=== PATIENT | male | born 1975 ===

== ENCOUNTER 2023-12-26 11:31 | Outpatient (CLI) | payer MEDICAID, SELFPAY ==
--- OUTSIDE RECORDS SUMMARY | 2023-12-26 11:38 | XMS_ITS | Clinical Summary ---
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 Name Role Phone Unavailable Primary Care Provider Unavailabl e Encounters Date Type Department Care Team Description 12/12/2023 Lab Requisition [facility] Pathology & Laboratory [facility] [address] [place] [address] Outr Resulting Lab, Provider 11/28/2023 Lab Requisition [facility] Pathology & Laboratory [address] [address] Outr Resulting Lab, Provider from Last 3 Months Social History Tobacco Use Types Packs/Day Years Used Date Smoking Tobacco: Never Assessed Sex and Gender Information Value Date Recorded Sex Assigned at Not on file Gender Identity Not on file Sexual Orientation Not on file Plan of Treatment Health Maintenance Due Date Last Done Comments Hepatitis C Screen 1975 Hepatitis B Vaccine (1 of 3 - 19+ 3-dose series) 01/05 COVID-19 Vaccine ( season) 2023 Procedures Procedure Name Priority Date/Time Associated Diagnosis Comments T3 FREE Routine 12/12/2023 12:47 EDT T3, TOTAL Routine 12/12/2023 12:47 EDT ANTI THYROGLOBULIN Routine 12/12/2023 12 :47 EDT HOLD SST Today 11/28/2023 11:11 EDT TESTOSTERONE Today 11/28/2023 11:11 EDT PROLACTIN Today 11/28/2023 11:11 EDT LH Today 11/28/2023 11:11 EDT FSH Today 11/28/2023 11:11 EDT from Last 3 Months Results * ANTI THYROGLOBULIN (12/12/2023 12:47 EDT) Anti-Thyroglob ulin <15 <=60 U/mL 12/13/2023 9:22 EDT [facility] Blood VENOUS BLOOD / Unknown 12/12/2023 12:47 EDT 12/12/2023 22:19 EDT Provider Outr Resulting Lab CHEMISTRY & BLOOD GAS ORDERABLES Performing Organization Address City/[facility]/ZIP Co de Phone Number [facility] [address] [place] [address] * T3 FREE (12/12/2023 12:47 EDT) Pathologist [facility] T3, Free 5.2 2.8 - 5.3 pg/mL 12/12/2023 22:52 EDT [facility] Blood VENOUS BLOOD / Unknown 12/12/2023 12:47 EDT 12/12/2023 22:19 EDT Provider Outr Resulting Lab CHEMISTRY & BLOOD GAS ORDERABLES Performing Organization Address City/[facility]/ZIP Co de Phone Number [facility] [address] [place] [phone] * (ABNORMAL) T3, TOTAL (12/12/2023 12:47 EDT) T3, Total 175(H) 97 - 169 ng/dL 12/12/2023 23:06 EDT [facility] Blood VENOUS BLOOD / Unknown 12/12/2023 12:47 EDT 12/12/2023 22:19 EDT Provider Outr Resulting Lab CHEMISTRY & BLOOD GAS ORDERABLES Performing Organization Address City/[facility]/ZIP Co de Phone Number [facility] [address] [place] [address] 40 * HOLD SST (11/28/2023 11:11 EDT) Hold Hold 11/28/2023 23:01 EDT [facility] Blood VENOUS BLOOD / Unknown 11/28/2023 11:11 EDT 11/28/2023 21:55 EDT Provider Outr Resulting Lab LAB INFO SER VICE AND SUPPORT & PHONE RESULT [facility] [address] [place] [address] * PROLACTIN (11/28/2023 11:11 EDT) Pathologist [facility] Prolactin 9.6 2.1 - 17.7 ng/mL 11/28/2023 22:54 EDT [facility] Blood VENOUS BLOOD / Unknown 11/28/2023 11:11 EDT 11/28/2023 21:55 EDT Provider Outr Resulting Lab CHEMISTRY & BLOOD GAS ORDERABLES Performing Organization Address [facility]/ZIP Co de Phone Number [facility] [address] [place] [phone] * TESTOSTERONE (11/28/2023 11:11 EDT) Pathologist [facility] Testosterone 601 229 - 902 ng/dL 11/28/2023 22:54 EDT [facility] Blood VENOUS BLOOD / Unknown 11/28/2023 11:11 EDT 11/28/2023 21:55 EDT Narrative [facility] - 11/28/2023 22:54 EDT The results of this assay can be falsely elevated due to the consumption of Biotin. Provider Outr Resulting Lab CHEMISTRY & BLOOD GAS ORDERABLES Performing Organization Address [facility]/ZIP Co de Phone Number [facility] [address] [place] [address] * (ABNORMAL) LH (11/28/2023 11:11 EDT) Luteinizing Hormone 12.6(H) 1.5 - 9.3 mIU/mL 11/28/2023 22:55 EDT [facility] Blood VENOUS BLOOD / Unknown 11/28/2023 11:11 EDT 11/28/2023 21:55 EDT Provider Outr Resulting Lab CHEMISTRY & BLOOD GAS ORDERABLES [facility] [address] [place] [address] * (ABNORMAL) FSH (11/28/2023 11:11 EDT) FSH 31.2(H) 1.4 - 18.1 mIU/mL 11/28/2023 22:54 EDT [facility] Blood VENOUS BLOOD / Unknown 11/28/2023 11:11 EDT 11/28/2023 21:55 EDT Provider Outr Resulting Lab CHEMISTRY & BLOOD GAS ORDERABLES [facility] [address] [place] [address] from Last 3 Months
--- OUTSIDE RECORDS SUMMARY | 2023-12-26 11:38 | XMS_ITS | Continuity of Care Document ---
Author Organization [facility] Address [address] [place] [address] Encounter [facility] Date(s): 01/30/23 - 01/30/23 [facility] [address] [place] [address] Encounter Diagnosis End stage liver disease(Discharge Diagnosis) - 01/30/23 Abdominal ascites(Discharge Diagnosis) - 01/30/23 Discharge Disposition: Home or Self Care Attending Physician: Irwin Martin MD Admitting Physician: Irwin Martin MD Allergies, Adverse Reactions, Alerts No Known Allergies Assessment and Plan Extracted from: Title:Clinical Document Author:Aishwarya Andrade te:01/30/23 Diagnosis: 1. Abdominal pain Comment: Diagnosis: 2. Abdominal ascites Comment: Diagnosis: End stage liver disease Comment: Diagnostic Tests Pending * Total Protein, Fluid [facility] 01/30/23 * Glucose, Fluid [facility] 01/30/23 * LDH, Fluid [facility] 01/30/23 Functional Status 01/30/23 Family Member Travel History No recent t ravel Recent Travel History No recent travel Other exposure to Infectious Disease Non e Medications folic acid 0 Refill(s) Start Date: 01/30/23 Status: Ordered furosemide 0 Refill(s) Start Date: 01/30/23 Status: Ordered lactulose 0 Refill(s) Start Date: 01/30/23 Status: Ordered potassium chloride 0 Refill(s) Start Date: 01/30/23 Status: Ordered Protonix 0 Refill(s) Start Date: 01/30/23 Status: Ordered spironolactone 0 Refill(s) Start Date: 01/30/23 Status: Ordered Problem List Condition Confirmation Course Effective Dates Status Health [facility] Informant Abdominal ascites Confirmed Active End stage liver disease Confirmed Active Results Laboratory List Name Date Cell Count w/ Diff Body Fluid 01/30/23 Ammonia Level 01/30/23 CBC w/ Diff 01/30/23 Comprehensive Metabolic Panel (CMP) 01/06 08/27 PT/ INR 01/30/23 PTT 01/30/23 .Manual Differential (NCTY) 01/30/23 Most recent to oldest [Reference Range]: 1 WBC [5.0-10.0 x10^3/mcL] 6.2 x10^3/mcL (01/30/23 12:53 PM) RBC [4.6-6.0 x10^6/mcL] 3.3 x10^6/mcL *LOW* (01/30/23 12:53 PM) Segs Man [40-75 %] 58 % (01/30/23 12:53 PM) Lymph Man [20-50 %] 20 % (01/30/23 12:53 PM) Dade Man [2-15 %] 20 % *HI* (01/30/23 12:53 PM) Eos Man [1-6 %] 2 % (01/30/23 12:53 PM) Prothrombin Time [9.0-11.0 seconds] 13.8 seconds *HI* (01/30/23 12:53 PM) INR 1.4 1 *NA* (01/30/23 12:53 PM) BUN [7-18 mg/dL] 9 mg/dL (01/30/23 12:53 PM) Glucose Level [74-106 mg/dL] 142 mg/dL *HI* (01/30/23 12:53 PM) Clarity BF [Clear] Clear (01/30/23 4:51 PM) Acanthocyte Small (01/30/23 12:53 PM) Potassium Level [3.5-5.1 mmol/L] 3.4 mmo l/L *LOW* (01/30/23 12:53 PM) MCV [80.0-96.0 fL] 90.3 fL (01/30/23 12:53 PM) RBC Morph Abnormal (01/30/23 12:53 PM) AST [15-37 unit/L] 42 unit/L *HI* (01/30/23 12:53 PM) ALT [16-63 unit/L] 19 unit/L (01/30/23 12:53 PM) MCHC [31.0-35.0 g/dL] 34.8 g/dL (01/30/23 12:53 PM) Sodium Level [136-145 mmol/L] 126 mmol/L *LOW* (01/30/23 12:53 PM) Hct [41.0-51.0 %] 29.9 % *LOW* (01/30/23 12:53 PM) Basophil BF 0 % *NA* (01/30/23 4:51 PM) Partial Thromboplastin Time [22-35 secon ds] 29 seconds 2 (01/30/23 12:53 PM) Calcium Level [8.5-10.1 mg/dL] 8.4 mg/dL *LOW* (01/30/23:53 PM) Albumin Level [3.4-5.0 g/dL] 2.6 g/dL *LOW* (01/30/23 12:53 PM) Protein Total [6.4-8.2 g/dL] 6.0 g/dL *LOW* (01/30/23:53 PM) Poik Small (01/30/23 12:53 PM) Monocyte BF 0 % *NA* (01/30/23 4:51 PM) MCH [26.0-32.0 pg] 31.4 pg (01/30/23 12:53 PM) Bilirubin Total [0.2-1.0 mg/dL] 3.8 mg/d L *HI* (01/30/23 12:53 PM) Hgb [14.0-18.0 g/dL] 10.4 g/dL *LOW* (01/30/23 12:53 PM) RBC BF <0.01 x10^6/mcL *NA* (01/30/23 4:51 PM) Alk Phos [46-146 unit/L] 127 unit/L (01/30/23 12:53 PM) Band Man [0-5 %] 0 % (01/30/23 12:53 PM) Eos BF 0 % *NA* (01/30/23 4:51 PM) Platelets [130-450 x10^3/mcL] 155 x10^3/ mcL (01/30/23 12:53 PM) Color BF Yellow (01/30/23 4:51 PM) Cell Cnt BF Type Peritoneal Fl 3 (01/30/23 4:51 PM) CO2 [21-32 mmol/L] 26 mmol/L (01/30/23 12:53 PM) WBC BF 0.072 x10^3/mcL *NA* (01/30/23 4:51 PM) Segs BF 2 % *NA* (01/30/23 4:51 PM) Ammonia Level [11-32 umol/L] <10 umol/L 4 *LOW* (01/30/23 12:53 PM) Lymph BF 0 % 5 *NA* (01/30/23 4:51 PM) eGFR Non-AA [>=60] 106 (01/30/23 12:53 PM) eGFR AA [>=60] 106 (01/30/23 12:53 PM) Chloride Level [98-107 mmol/L] 93 mmol/L *LOW* (01/30/23 12:53 PM) RDW-CV [11.5-14.5 %] 15.8 % *HI* (01/30/23 12:53 PM) [place] Cells Rare (01/30/23 12:53 PM) Slide Review Man Diff (01/30/23 12:53 PM) Abs Neut Man 3.6 x10^3/mcL *NA* (01/30/23 12:53 PM) Anisocyte Rare (01/30/23 12:53 PM) Creatinine Level [0.70-1.30 mg/dL] 0.86 mg/dL (01/30/23 12:53 PM) Baso Man [0-1 %] 0 % (01/30/23 12:53 PM) 1Interpretive Data: INR 2-2.5 Prophylaxis: Short term DVT INR 2-3 Prophylaxis: hip and femur surgery Therapy: DVT (3 mos) PE (3-6 mos) TIA (fpc) Atr Fib (terminal press operator) Syst. emb post DC Mitral Stenosis with emboli (terminal press operator) Tissue prosthetic valves (3 mos min) INR 3-4.5 Therapy: recurrent DVT, PE (terminal press operator) Prosthetic heart valves (terminal press operator) 2Interpretive Data: NEW reagent effective 12/08/2021- Therapeutic Heparin Reference Range (0.3-0.7 effective anti-Xa level) 40-70 seconds Range (0.3-0.7 effective anti-Xa level) 40-70 seconds NEW reagent effective 12/08/2021- Therapeutic Heparin Reference Range (0.3-0.7 effective anti-Xa level) 40-70 seconds. 3Interpretive Data: Reference ranges are unavailable. Results should be interpreted in the context of the clinical setting. 4Result Comment: correction to < . 5Result Comment: count pending Orders for Microbiology Reports Name Date Body Fluid Culture 01/30/23 Microbiology Reports TEST:Body Fluid Culture STATUS:Order in Progress BODY SITE: SOURCE:Body Fluid COLLECTED DATE/TIME:01/30/23 4:51 PM STAIN REPORT No organisms seen. Vital Signs Most recent to oldest [Reference Range]: 1 2 3 Temperature Temporal Artery [36-38 Deg C] 36.5 Deg C (01/30/23 12:03 PM) Peripheral Pulse Rate [60-100 bpm] 106 bpm *HI* (01/30/23 4:19 PM) 124 bpm *HI* (01/30/23 12:03 PM) Respiratory Rate [12-24 br/min] 18 br/min (01/30/23 4:19 PM) 20 br/min (01/30/23 12:03 PM) Blood Pressure [90-140/60-90 mmHg] 121/73mmHg (01/30/23 4:27 PM) 105/71mmHg (01/30/23 4:23 PM) 108/62mmHg (01/30/23 12:03 PM) Mean Arterial Pressure, Cuff [70-110 mmHg] 77 mmHg (01/30/23 12:03 PM) Weight Dosing 75.00 kg (01/30/23 12:09 PM) Weight Estimated 75.00 kg (01/30/23 12:03 PM) Height 180.000 cm (01/30/23 12:09 PM) Height/Length Estimated 180.000 cm (01/30/23 12:03 PM) Social History Social History Type Response Tobacco Current everyday tob acco user Tobacco Use:. 1.5 PPD per day. Sex Male Physician Emergency department Note * Irwin Martin MD: PERFORM Event Display: ED Note Physician Authored Date: [id number] MONISHA RODRIGUEZ :1975 Age:48 years Sex:Male Visit Date:01/30/2023 Basic Information Time Seen: Irwin Martin MD / 01/30/2023 12:24 Chief Complaint I have liver issues, I am being [place] [facility] and they told me to come into the ER to have my stomach tapped. PT states last time was 2-3 weeks ago. I have another one scheduled next month rightnow. PT states 1.5 liters removed History Of Present Illness: Patient presents for paracentesis. Review of Systems: Negative's for major body systems except for abdominal distention??from ascites. Physical Exam Vitals & Measurements T:??36.5?C ??(Temporal Artery)?? HR:??106??(Peripheral)?? RR:??18?? BP:??121/73?? SpO2:??95%?? HT:??180.000??cm?? WT:??75.00??kg??(Estimated)?? O2 Therapy:??Room air?? No distress. ??Heart tacky. ??Respirations normal. ??Chest auscultation normal. ??Abdomen tense ascites. ??Extremity??moderate edema. ??General??appearance??icteric. Medical Decision Making: Problem complexity is moderate. ??Data??complexity is??low. ??Management risk are moderate. ??[facility] coding [address]65 Procedure Paracentesis performed by Dr. Fuentes. No Qualifying Data Assessment/Plan 2.??Abdominal ascites??R18.8 Ordered: Nursing Care, 01/30/23 17:23:00 EST, Stop date 01/30/23 17:23:00 EST, Please apply dressing to abdominal procedure site, Abdominal ascites Nursing Care, 01/30/23 17:23:00 EST, Stop date 01/30/23 17:23:00 EST, Abdominal ascites ?? End stage liver disease??K72.10 ?? Medication Reconciliation Unchanged folic acid ?? furosemide ?? lactulose ?? pantoprazole (Protonix) ?? potassium chloride ?? spironolactone Problem List/Past Medical History Ongoing Abdominal ascites End stage liver disease Historical No qualifying data Allergies No Known Allergies Social History Alcohol Past, Liquor, Daily Electronic Cigarette/Vaping Electronic Cigarette Use: Never. Home/Environment Lives with Alone. Substance Use Current, Marijuana Tobacco Current everyday tobacco user Tobacco Use:. 1.5 PPD per day. Lab Results CBC and Differential?? LATEST RESULTS?? HISTORICAL RESULTS?? WBC?? 01/30/23 12:53?? 6.2?? 11/24/22?? 19.5 ??High?? RBC?? 01/30/23 12:53?? 3.3 ??Low?? 11/24/22?? 2.5 ??Low?? Hgb?? 01/30/23 12:53?? 10.4 ??Low?? 11/24/22?? 9.1 ??Low?? Hct?? 01/30/23 12:53?? 29.9 ??Low?? 11/24/22?? 24.8 ??Low?? MCV?? 01/30/23 12:53?? 90.3?? 11/24/22?? 99.2 ??High?? MCH?? 01/30/23 12:53?? 31.4?? 11/24/22?? 36.4 ??High?? MCHC?? 01/30/23 12:53?? 34.8?? 11/24/22?? 36.7 ??High?? RDW-CV?? 01/30/23 12:53?? 15.8 ??High?? 11/24/22?? 15.0 ??High?? Platelets?? 01/30/23 12:53?? 155?? 11/24/22?? 211?? Segs Man?? 01/30/23 12:53?? 58?? 11/24/22?? 74?? Lymph Man?? 01/30/23 12:53?? 20?? 11/24/22?? 12 ??Low?? Dade Man?? 01/30/23 12:53?? 20 ??High?? 11/24/22?? 14?? Eos Man?? 01/30/23 12:53?? 2?? 11/24/22?? 0 ??Low?? Baso Man?? 01/30/23 12:53?? 0?? 11/24/22?? 0?? Band Man?? 01/30/23 12:53?? 0?? 11/24/22?? 0?? Abs Neut Man?? 01/30/23 12:53?? 3.6? RBC Morph?? 01/30/23 12:53?? Abnormal?? 11/24/22?? Normal?? Acanthocyte?? 01/30/23 12:53?? Small? Anisocyte?? 01/30/23 12:53?? Rare? Clara Cells?? 01/30/23 12:53?? Rare? Poik?? 01/30/23 12:53?? Small? Slide Review?? 01/30/23 12:53?? Man Diff?? 11/24/22?? Man Diff? Coagulation?? LATEST RESULTS?? HISTORICAL RESULTS?? Prothrombin Time?? 01/30/23 12:53?? 13.8 ??High?? 11/24/22?? DateCorrection?? INR?? 01/30/23 12:53?? 1.4?? 11/24/22?? DateCorrection?? Partial Thromboplastin Time?? 01/30/23 12:53?? 29? Routine Chemistry?? LATEST RESULTS?? HISTORICAL RESULTS?? Sodium Level?? 01/30/23 12:53?? 126 ??Low?? 11/24/22?? 122 ??Critical?? Potassium Level?? 01/30/23 12:53?? 3.4 ??Low?? 11/24/22?? 3.6?? Chloride Level?? 01/30/23 12:53?? 93 ??Low?? 11/24/22?? 84 ??Low?? CO2?? 01/30/23 12:53?? 26?? 11/24/22?? 30?? Alk Phos?? 01/30/23 12:53?? 127?? 11/24/22?? 187 ??High?? AST?? 01/30/23 12:53?? 42 ??High?? 11/24/22?? 96 ??High?? ALT?? 01/30/23 12:53?? 19?? 11/24/22?? 38?? BUN?? 01/30/23 12:53?? 9?? 11/24/22?? 36 ??High?? Glucose Level?? 01/30/23 12:53?? 142 ??High?? 11/24/22?? 123 ??High?? Creatinine Level?? 01/30/23 12:53?? 0.86?? 11/24/22?? 0.93?? eGFR AA?? 01/30/23 12:53?? 106?? 11/24/22?? 101?? eGFR Non-AA?? 01/30/23 12:53?? 106?? 11/24/22?? 101?? Calcium Level?? 01/30/23 12:53?? 8.4 ??Low?? 11/24/22?? 7.7 ??Low?? Protein Total?? 01/30/23 12:53?? 6.0 ??Low?? 11/24/22?? 5.4 ??Low?? Albumin Level?? 01/30/23 12:53?? 2.6 ??Low?? 11/24/22?? 1.9 ??Low?? Bilirubin Total?? 01/30/23 12:53?? 3.8 ??High?? 11/24/22?? 11.4 ??High?? Ammonia Level?? 01/30/23 12:53?? <10 ??Low?? 11/24/22?? 10 ??Low? Electronically Signed on 01/30/23 05:28 PM Irwin Martin MD Emergency department Discharge instructions * Irwin Martin MD: PERFORM Event Display: ED Discharge Information Authored Date: [id number] MONISHA RODRIGUEZ :1975 Age:48 years Sex:Male Visit Date:01/30/2023 Discharge Instructions We would like to thank you for allowing us to assist you with your healthcare needs. The following includes patient education materials and information regarding your injury/illness. Diagnosis from Today's Visit Abdominal ascites End stage liver disease Discharge Vitals Temperature??(Temporal Artery) 97.7 ??F (36.5 ??C) Heart Rate??(Peripheral) 106 Respiratory Rate?? 18 Blood Pressure?? 121/73?? Height?? 70.87 in (180.000 cm) Weight??(Estimated) 165.38 lb (75.00 kg) Allergies No Known Allergies What to Do Next Instructions from Your Care Team Suture removal in 10 days.?? Continue with current medications.?? Follow-up here as needed. ?? Irwin Martin MD You were treated today on an emergency basis; it may be galeano to contact your primary care provider to notify them of your visit today. You may have been referred to your regular doctor or a specialist, please follow up as instructed. If your condition worsens or you can't get in to see the doctor, contact the Emergency Department. Medications What When Instructions Next Dose Unchanged folic acid Unchanged furosemide Unchanged lactulose Unchanged pantoprazole (Protonix) Unchanged potassium chloride Unchanged spironolactone Tests Performed Lab Test Name Test Result Date/Time WBC 6.2 x10^3/mcL 01/30/2023 12:53 EST RBC 3.3 x10^6/mcL 01/30/2023 12:53 EST Hgb 10.4 g/dL 01/30/2023 12:53 EST Hct 29.9 % 01/30/2023 12:53 EST MCV 90.3 fL 01/30/2023 12:53 EST MCH 31.4 pg 01/30/2023 12:53 EST MCHC 34.8 g/dL 01/30/2023 12:53 EST RDW-CV 15.8 % 01/30/2023 12:53 EST Platelets 155 x10^3/mcL 01/30/2023 12:53 EST Segs Man 58 % 01/30/2023 12:53 EST Lymph Man 20 % 01/30/2023 12:53 EST Dade Man 20 % 01/30/2023 12:53 EST Eos Man 2 % 01/30/2023 12:53 EST Baso Man 0 % 01/30/2023 12:53 EST Band Man 0 % 01/30/2023 12:53 EST Abs Neut Man 3.6 x10^3/mcL 01/30/2023 12:53 EST RBC Morph Abnormal 01/30/2023 12:53 EST Acanthocyte Small 01/30/2023 12:53 EST Anisocyte Rare 01/30/2023 12:53 EST [place] Cells Rare 01/30/2023 12:53 EST Poik Small 01/30/2023 12:53 EST Slide Review Man Diff 01/30/2023 12:53 EST Prothrombin Time 13.8 seconds 01/30/2023 12:53 EST INR 1.4 01/30/2023 12:53 EST Partial Thromboplastin Time 29 seconds 01/30/2023 12:53 EST Sodium Level 126 mmol/L 01/30/2023 12:53 EST Potassium Level 3.4 mmol/L 01/30/2023 12:53 EST Chloride Level 93 mmol/L 01/30/2023 12:53 EST CO2 26 mmol/L 01/30/2023 12:53 EST Alk Phos 127 unit/L 01/30/2023 12:53 EST AST 42 unit/L 01/30/2023 12:53 EST ALT 19 unit/L 01/30/2023 12:53 EST BUN 9 mg/dL 01/30/2023 12:53 EST Glucose Level 142 mg/dL 01/30/2023 12:53 EST Creatinine Level 0.86 mg/dL 01/30/2023 12:53 EST eGFR AA 106 01/30/2023 12:53 EST eGFR Non-AA 106 01/30/2023 12:53 EST Calcium Level 8.4 mg/dL 01/30/2023 12:53 EST Protein Total 6.0 g/dL 01/30/2023 12:53 EST Albumin Level 2.6 g/dL 01/30/2023 12:53 EST Bilirubin Total 3.8 mg/dL 01/30/2023 12:53 EST Ammonia Level <10 umol/L 01/30/2023 12:53 EST Patient/Karate Instructor Signature Patient Name:KATHIABRIANNASandhyaMONISHA I have received this information and my questions have been answered. Patient/Karate Instructor Name: Patient/Karate Instructor Signature: Relationship to Patient: Witness Name/Signature: Date: Electronically Signed on: 01/30/2023 17:27 ESTSigned by:[facility] Emergency department Note * Paula Catalan H: PERFORM Event Display: ED Notes Authored Date: [id number] Progress note * Luis Fuentes DO: PERFORM Event Display: Progress Note - Physician Authored Date: [id number] MONISHA RODRIGUEZ :1975 Age:48 years Sex:Male Visit Date:01/30/2023 Procedure Name Paracentesis Consent Pain in chart Indication Symptomatic ascites with pain and distention as per patient Location Right upper quadrant Pre-Procedure Exam Patient had abdominal exam as well as ultrasound performed prior to procedure Procedural Sedation Local anesthesia Technique Patient had the area prepped and draped in a sterile fashion. ??Patient had local anesthesia infiltrated the area adequate anesthesia was achieved, an 11 blade was used to make a 0.5 cm incision in the skin.?? Patient had an ultrasound??sterilely bedside??and the paracentesis needle was??inserted under direct vision??into the ascites of the abdomen.?? Patient had a needle removed and was connected to??the tubing. ??The tubing was then connected to the??canisters which did not work properly so gravity??feed as well as??60 cc syringe removal of approximately 2 L of??ascites were removed and??total.?? Patient had paracentesis catheter removed??and 2 interrupted??nylon sutures placed??to close the incision. Post-Procedure Exam Within normal limits Complications None Total Time 45 minutes Assessment/Plan 2.??Abdominal ascites??R18.8 Bedside paracentesis in the emergency room End stage liver disease??K72.10 Patient to follow-up with Dr. Shields as an outpatient Electronically Signed on 01/30/23 04:51 PM Luis Fuentes DO * Luis Fuentes DO: PERFORM Event Display: Progress Note - Physician Authored Date: [id number] MONISHA RODRIGUEZ :1975 Age:48 years Sex:Male Visit Date:01/30/2023 Chief Complaint I have liver issues, I am being [place] [facility] and they told me to come into the ER to have my stomach tapped. PT states last time was 2-3 weeks ago. I have another one scheduled next month rightnow. PT states 1.5 liters removed Reason for Consultation Patient with end-stage liver disease and??symptomatic ascites causing abdominal tension and pain History of Present Illness Patient was a alcoholic who??ended up with end-stage liver disease and ongoing??accumulating ascites??patient had approximately 1.5??L removed 2 weeks ago at [facility] Review of Systems Constitutional:?No??fevers,?No??chills,?No??sweats Eye:?No??recent visual problems ENT:?No??ear pain,?No??nasal congestion,?No??sore throat Respiratory:?No??shortness of breath,?No??cough Cardiovascular:?No??Chest pain,?No??palpitations,?No??syncope Gastrointestinal:?Nonausea,?No??vomiting,?No??diarrhea??patient is symptomatic with pain and distention??as per patient tension??on his abdomen from his overwhelming ascites Genitourinary:?No??hematuria Link/Lymph:?No??bruising tendency,?No??swollen lymph glands Endocrine:?No??excessive thirst,??No??excessive hunger Musculoskeletal:??No??back pain,??No??neck pain,??No??joint pain,??No??muscle pain,??No??decreased range of motion Integumentary:?No??rash,?No??pruritus,?No??abrasions Neurologic: Alert & oriented X 4 Psychiatric:?No??anxiety,?No??depression Physical Exam Vitals & Measurements T:??36.5?C ??(Temporal Artery)?? HR:??106??(Peripheral)?? RR:??18?? BP:??121/73?? SpO2:??95%?? HT:??180.000??cm?? WT:??75.00??kg??(Estimated)?? O2 Therapy:??Room air?? General: Alert and oriented, well nourished,?No??acute distress Eye: PERRL, EOMI,?Normal?conjunctiva HENT: Normocephalic, clear tympanic membranes,?Normal? hearing, moist oral mucosa,?No??scleral icterus,?No??sinus tenderness Neck: Supple, non-tender,?No??carotid bruits,?No??JVD,?No??lymphadenopathy Lungs:??Clear to auscultation?? Respiration:??Non-Labored Heart:?Normal? rate,?Regular??rhythm,?No??murmur,?No??gallop,?No??edema Breast:?No??lumps,?No??bumps,?No??scars,?Normal? nipples Abdomen: Soft, tender, distended,?Normal? bowel sounds,?No??masses patient largely distended secondary to ascites??ultrasound was??performed??and showed a fluid area that could be accessed in the right upper quadrant Musculoskeletal:?Normal? range of motion and strength,?No??tenderness,?No??swelling Skin: Skin is warm, dry and pink,?No??rashes,?No??lesions Neurologic: Awake, alert and oriented X4, CN II-XII intact Psychiatric: Cooperative, appropriate mood and affect Assessment/Plan 2.??Abdominal ascites??R18.8 Patient for paracentesis bedside with ultrasound guidance End stage liver disease??K72.10 Patient to follow-up with Dr. Shields as outpatient for potential ongoing??persistent drainage??for his end-stage liver disease and??symptomatic ascites Problem List/Past Medical History Ongoing No qualifying data Historical No qualifying data Medications Inpatient No active inpatient medications Home folic acid furosemide lactulose potassium chloride Protonix spironolactone Allergies No Known Allergies Social History Alcohol Past, Liquor, Daily Electronic Cigarette/Vaping Electronic Cigarette Use: Never. Home/Environment Lives with Alone. Substance Use Current, Marijuana Tobacco Current everyday tobacco user Tobacco Use:. 1.5 PPD per day. Electronically Signed on 01/30/23 04:48 PM Luis Fuentes DO Discharge summary * Aishwarya Andrade: PERFORM Event Display: Discharge Note Authored Date: * Aishwarya Andrade: PERFORM Event Display: Discharge Note Authored Date: Diagnosis: 1. Abdominal pain Comment: Diagnosis: 2. Abdominal ascites Comment: Diagnosis: End stage liver disease Comment: Electronically Signed on 01/30/23 05:44 PM Aishwarya Andrade Patient Care team information Care Team Personnel Name: Irwin Martin MD Position: Physician Member Role: ED Physician Address: Address: [address] [place] [id number]
--- OUTSIDE RECORDS SUMMARY | 2023-12-26 11:38 | XMS_ITS | Continuity of Care Document ---
Author Organization [facility] Address [address] [place] [address] Care Team Providers Care Global Sales Director Name Role Phone Outside, Provider Primary Care Physician [phone] [facility]counter [facility] Date(s): 03/01/23 - 03/01/23 [facility] [address] [place] [address] Discharge Disposition: Home or Self Care Attending Physician: Diana Durbin MD Admitting Physician: Diana Durbin MD Referring Physician: Diana Durbin MD Allergies, Adverse Reactions, Alerts No Known Allergies Assessment and Plan Future Appointments Medications folic acid 0 Refill(s) Start Date: 01/30/23 Status: Ordered folic acid 1 mg oral tablet Oral, 1000 Unknown, 1 Refill(s), Take 1 tablet by mouth daily., 0 Refill(s) Start Date: 01/13/23 Status: Ordered furosemide 0 Refill(s) Start Date: 01/30/23 Status: Ordered furosemide 40 mg oral tablet Oral, 40 Unknown, 3 Refill(s), Take 1 tablet by mouth daily., 0 Refill(s) Start Date: 01/12/23 Status: Ordered lactulose 0 Refill(s) Start Date: 01/30/23 Status: Ordered lactulose 10 g oral powder for reconstitution Oral, TID, 20 Unknown, 3 Refill(s), Take 30 mLs by mouth 3 times daily. Titrate to 3-4 bowel movements a day, 0 Refill(s) Start Date: 01/12/23 Status: Ordered multivitamin adult, oral tablet Oral, 1 Unknown, 0 Refill(s), Take 1 tablet by mouth daily., 0 Refill(s) Start Date: 01/13/23 Status: Ordered omeprazole 40 mg oral delayed release capsule Oral, BID, 40 Unknown, 3 Refill(s), Take 1 capsule by mouth 2 times daily., 0 Refill(s) Start Date: 01/12/23 Status: Ordered potassium chloride 0 Refill(s) Start Date: 01/30/23 Status: Ordered potassium chloride 10 mEq oral tablet, extended release Oral, 10 Unknown, 3 Refill(s), Take 1 tablet by mouth daily., 0 Refill(s) Start Date: 01/23/23 Status: Ordered Protonix 0 Refill(s) Start Date: 01/30/23 Status: Ordered spironolactone 0 Refill(s) Start Date: 01/30/23 Status: Ordered spironolactone 100 mg oral tablet Oral, 100 Unknown, 11 Refill(s), Take 1 tablet by mouth daily., 0 Refill(s) Start Date: 01/23/23 Status: Ordered Problem List Condition Confirmation Course Effective Dates Status Health St atus Informant Abdominal ascites Confirmed Active End stage liver disease Confirmed Active Results Laboratory List Name Date Automated Diff 03/01/23 CBC w/ Diff 03/01/23 Comprehensive Metabolic Panel 03/01/23 Most recent to oldest [Reference Range]: 1 WBC [5.0-10.0 x10^3/mcL] 7.0 x10^3/mcL (03/01/23 11:11 AM) RBC [4.6-6.0 x10^6/mcL] 3.3 x10^6/mcL *LOW* (03/01/23 11:11 AM) Neutro Auto [40.0-75.0 %] 51.0 % (03/01/23 11:11 AM) Lymph Auto [20.0-50.0 %] 30.8 % (03/01/23 11:11 AM) Vilas Auto [2.0-15.0 %] 14.3 % (03/01/23 11:11 AM) Basophil Auto [0.0-1.0 %] 0.9 % (03/01/23 11:11 AM) BUN [7-18 mg/dL] 17 mg/dL (03/01/23 11:11 AM) Glucose Level [74-106 mg/dL] 98 mg/dL (03/01/23 11:11 AM) Potassium Level [3.5-5.1 mmol/L] 3.8 mmo l/L (03/01/23 1111 AM) MCV [80.0-96.0 fL] 88.3 fL (03/01/23 1111 AM) AST [15-37 unit/L] 37 unit/L (03/01/23 1111 AM) ALT [16-63 unit/L] 23 unit/L (03/01/23 11:11 AM) MCHC [31.0-35.0 g/dL] 34.1 g/dL (03/01/23 11:11 AM) Sodium Level [136-145 mmol/L] 131 mmol/L *LOW* (03/01/23 AM) Hct [41.0-51.0 %] 29.3 % *LOW* (03/01/23 AM) Calcium Level [8.5-10.1 mg/dL] 8.8 mg/dL (03/01/23 11:11 AM) Albumin Level [3.4-5.0 g/dL] 2.7 g/dL *LOW* (03/01/23 11:11 AM) Protein Total [6.4-8.2 g/dL] 6.6 g/dL (03/01/23 11:11 AM) MCH [26.0-32.0 pg] 30.1 pg (03/01/23 11:11 AM) Neutro Absolute 3.6 x10^3/mcL *NA* (03/01/23 11 AM) Bilirubin Total [0.2-1.0 mg/dL] 2.1 mg/d L *HI* (03/01/23 11:11 AM) Hgb [14.0-18.0 g/dL] 10.0 g/dL *LOW* (03/01/23 1111 AM) Alk Phos [46-146 unit/L] 99 unit/L (03/01/23 11:11 AM) Platelets [130-450 x10^3/mcL] 208 x10^3/ mcL (03/01/23 11:11 AM) CO2 [21-32 mmol/L] 23 mmol/L (03/01/23 11:11 AM) eGFR Non-AA [>=60] 114 (03/01/23 11:11 AM) eGFR AA [>=60] 114 (03/01/23 11:11 AM) Chloride Level [98-107 mmol/L] 99 mmol/L (03/01/23 11:11 AM) RDW-CV [11.5-14.5 %] 16.1 % *HI* (03/01/23 11:11 AM) Imm Gran Auto [0.0-0.9 %] 0.3 % (03/01/23 11:11 AM) Creatinine Level [0.70-1.30 mg/dL] 0.67 mg/dL *LOW* (03/01/23 11:11 AM) Eos, Auto [1.0-6.0 %] 2.7 % (03/01/23 11:11 AM) Social History Social History Type Response Tobacco Current everyday tob acco user Tobacco Use:. 1.5 PPD per day. Sex Male Consult note * Bekah Levine: PERFORM Event Display: Consultation Note Generic Authored Date: Patient Care team information Care Team Personnel Name: Outside, Provider Position: No Access Member Role: Primary Care Physician
--- OUTSIDE RECORDS SUMMARY | 2023-12-26 11:38 | XMS_ITS | Referral Summary ---
Author Organization [facility] Address [address] [place] [address] Care Team Providers Care Undergraduate Advisor Name Role Phone Unavailable Primary Care Provider Unavailabl e Encounters Date Type Department Care Team Description 12/12/2023 Lab Requisition [facility] Pathology & Laboratory [facility] [address] [place] [address] Outr Resulting Lab, Provider 11/28/2023 Lab Requisition [facility] Pathology & Laboratory [facility] [address] [place] [address] Outr Resulting Lab, Provider from Last 3 Months Social History Tobacco Use Types Packs/Day Years Used Date Smoking Tobacco: Never Assessed Sex and Gender Information Value Date Recorded Sex Assigned at Not on file Gender Identity Not on file Sexual Orientation Not on file Plan of Treatment Not on file Procedures Procedure Name Priority Date/Time Associated Diagnosis [...] ulin <15 <=60 U/mL 12/13/2023 9:22 EDT [facility] Blood VENOUS BLOOD / Unknown 12/12/2023 12:47 EDT 12/12/2023 22:19 EDT Provider Outr Resulting Lab CHEMISTRY & BLOOD GAS ORDERABLES [facility] [address], [place] [address] * T3 FREE (12/12/2023 12:47 EDT) Pathologist [facility] [place] T3, Free 5.2 2.8 - 5.3 pg/mL 12/12/2023 22:52 EDT [facility] Blood VENOUS BLOOD / Unknown 12/12/2023 12:47 EDT 12/12/2023 22:19 EDT Provider Outr Resulting Lab CHEMISTRY & BLOOD GAS ORDERABLES [facility] [address], [place] [id number] * (ABNORMAL) T3, TOTAL (12/12/2023 12:47 EDT) Pathologist [facility] [place] T3, Total 175(H) 97 - 169 ng/dL 12/12/2023 23:06 EDT [facility] Blood VENOUS BLOOD / Unknown 12/12/2023 12:47 EDT 12/12/2023 22:19 EDT Provider Outr Resulting Lab CHEMISTRY & BLOOD GAS ORDERABLES Performing Organization Address City/[facility]/ZIP Co de Phone Number [facility] [address], [place] [phone] * HOLD SST (11/28/2023 11:11 EDT) Pathologist [facility] [place] Hold Hold 11/28/2023 23:01 EDT [facility] Blood VENOUS BLOOD / Unknown 11/28/2023 11:11 EDT 11/28/2023 21:55 EDT Provider Outr Resulting Lab LAB INFO SER VICE AND SUPPORT & PHONE RESULT Performing Organization Address [facility] Co de Phone Number [facility] [address] [place] [address] * PROLACTIN (11/28/2023 11:11 EDT) Prolactin 9.6 2.1 - 17.7 ng/mL 11/28/2023 22:54 EDT [facility] Blood VENOUS BLOOD / Unknown 11/28/2023 11:11 EDT 11/28/2023 21:55 EDT Provider Outr Resulting Lab CHEMISTRY & BLOOD GAS ORDERABLES Performing Organization Address [facility] de Phone Number [facility] [address] [place] [address] * TESTOSTERONE (11/28/2023 11:11 EDT) Testosterone 601 229 - 902 ng/dL 11/28/2023 22:54 EDT [facility] Blood VENOUS BLOOD / Unknown 11/28/2023 11:11 EDT 11/28/2023 21:55 EDT Narrative [facility] - 11/28/2023 22:54 EDT The results of this assay can be falsely elevated due to the consumption of Biotin. Provider Outr Resulting Lab CHEMISTRY & BLOOD GAS ORDERABLES Performing Organization Address [facility] Co de Phone Number [facility] [address], [place] [phone] * (ABNORMAL) LH (11/28/2023 11:11 EDT) Luteinizing Hormone 12.6(H) 1.5 - 9.3 mIU/mL 11/28/2023 22:55 EDT [facility] Blood VENOUS BLOOD / Unknown 11/28/2023 11:11 EDT 11/28/2023 21:55 EDT Provider Outr Resulting Lab CHEMISTRY & BLOOD GAS ORDERABLES Performing Organization Address City/[facility] Co de Phone Number [facility] [address] [place] [address] * (ABNORMAL) FSH (11/28/2023 11:11 EDT) FSH 31.2(H) 1.4 - 18.1 mIU/mL 11/28/2023 22:54 EDT [facility] Blood VENOUS BLOOD / Unknown 11/28/2023 11:11 EDT 11/28/2023 21:55 EDT Provider Outr Resulting Lab CHEMISTRY & BLOOD GAS ORDERABLES [facility] [address] [place] [address] from Last 3 Months
--- OUTSIDE RECORDS SUMMARY | 2023-12-26 11:38 | XMS_ITS | Continuity of Care Document ---
Author Organization [facility] Address [address] [place] [address] Encounter [facility] Date(s): 11/24/22 - 11/24/22 [facility] [address] [place] [address] Discharge Disposition: Higher Level of Care Attending Physician: Irwin Martin MD Admitting Physician: Irwin Martin MD Allergies, Adverse Reactions, Alerts No Known Allergies Assessment and Plan Diagnostic Tests Pending * Blood Culture 11/24/22 * Blood Culture 11/24/22 * Chronic Hepatitis (Unknown Type), [place] 11/24/22 Medications No Known Medications Results Laboratory List Name Date Clostridium Difficile 11/24/22 Fecal Bacterial Pathogens by PCR [facility] 11/06 Cell Count w/ Diff Body Fluid 11/24/22 .Manual Differential ([facility]) 11/24/22 Alcohol Level 11/24/22 Ammonia Level 11/24/22 Blood Gas Venous 11/24/22 CBC w/ Diff 11/24/22 Comprehensive Metabolic Panel 11/24/22 Lactic Acid 11/24/22 Lipase Level 11/24/22 Magnesium Level 11/24/22 Osmolality Measured (Osmolality Serum Me asured) 11/24/22 PT/ INR 11/24/22 Procalcitonin 11/24/22 SARS-CoV-2 (COVID-19)/Flu/RSV (GeneXpert ) 11/24/22 Most recent to oldest [Reference Range]: 1 WBC [5.0-10.0 x10^3/mcL] 19.5 x10^3/mcL *HI* (11/24/22 9:25 AM) RBC [4.6-6.0 x10^6/mcL] 2.5 x10^6/mcL *LOW* (11/24/22 9:25 AM) Segs Man [40-75 %] 74 % (11/24/22 9:25 AM) Lymph Man [20-50 %] 12 % *LOW* (11/24/22 9: AM) Bullock Man [2-15 %] 14 % (11/24/22 9:25 AM) Eos Man [1-6 %] 0 % *LOW* (11/24/22 9: AM) Prothrombin Time [9.0-11.0 seconds] 15.9 seconds 1 *HI* (11/24/22 9:25 AM) INR 1.6 2, 3, 4 *NA* (11/24/22: AM) BUN [7-18 mg/dL] 36 mg/dL *HI* (11/24/22 9: AM) Glucose Level [74-106 mg/dL] 123 mg/dL *HI* (11/24/22 9:25 AM) Clarity BF [Clear] Clear (11/24/22 11:48 AM) Potassium Level [3.5-5.1 mmol/L] 3.6 mmo l/L (11/24/22 9:25 AM) MCV [80.0-96.0 fL] 99.2 fL *HI* (11/24/22 9: AM) RBC Morph Normal (11/24/22: AM) CO2 Total Venous 34 mmol/L *NA* (11/24/22: AM) HCO3 Venous [22-30 mmol/L] 33 mmol/L *HI* (11/24/22 9: AM) AST [15-37 unit/L] 96 unit/L *HI* (11/24/22 9:25 AM) ALT [16-63 unit/L] 38 unit/L (11/24/22 9:25 AM) MCHC [31.0-35.0 g/dL] 36.7 g/dL *HI* (11/24/22 9: AM) Sodium Level [136-145 mmol/L] 122 mmol/L 5 *CRIT* (11/24/22 9:25 AM) Hct [41.0-51.0 %] 24.8 % *LOW* (11/24/22: AM) Lipase Level [16-77 unit/L] 41 unit/L 6 (11/24/22 9:25 AM) Basophil BF 0 % *NA* (11/24/22 11:48 AM) Calcium Level [8.5-10.1 mg/dL] 7.7 mg/dL *LOW* (11/24/22 9:25 AM) Albumin Level [3.4-5.0 g/dL] 1.9 g/dL *LOW* (11/24/22 9:25 AM) Protein Total [6.4-8.2 g/dL] 5.4 g/dL *LOW* (11/24/22 9:25 AM) Monocyte BF 65 % *NA* (11/24/22 11:48 AM) MCH [26.0-32.0 pg] 36.4 pg *HI* (11/24/22 9:25 AM) Magnesium Level [1.8-2.4 mg/dL] 1.9 mg/d L (11/24/22 9:25 AM) Bilirubin Total [0.2-1.0 mg/dL] 11.4 mg/ dL *HI* (11/24/22 9:25 AM) Hgb [14.0-18.0 g/dL] 9.1 g/dL *LOW* (11/24/22 9:25 AM) RBC BF <0.01 x10^6/mcL *NA* (11/24/22 11:48 AM) Alk Phos [46-146 unit/L] 187 unit/L *HI* (11/24/22 9:25 AM) pCO2 Carlos Eduardo [33-47 mmHg] 36 mmHg (11/24/22 9:25 AM) Ethanol Level [0-10 mg/dL] <5 mg/dL (11/24/22 9:25 AM) Band Man [0-5 %] 0 % (11/24/22 9:25 AM) Eos BF 0 % *NA* (11/24/22 11:48 AM) Platelets [130-450 x10^3/mcL] 211 x10^3/ mcL (11/24/22 9:25 AM) Color BF Yellow (11/24/22 11:48 AM) Cell Cnt BF Type Ascitic Fl 7 (11/24/22 11:48 AM) CO2 [21-32 mmol/L] 30 mmol/L (11/24/22 9:25 AM) WBC BF 0.120 x10^3/mcL *NA* (11/24/22 11:48 AM) Segs BF 25 % *NA* (11/24/22 11:48 AM) Lactic Acid Lvl [0.7-2.0 mmol/L] 3.7 mmo l/L 8 *CRIT* (11/24/22 9:25 AM) Ammonia Level [11-32 umol/L] 10 umol/L *LOW* (11/24/22 9:25 AM) pO2 Carlos Eduardo 27 mmHg *NA* (11/24/22 9:25 AM) pH Carlos Eduardo [7.32-7.43 pH unit(s)] 7.57 pH un it(s) *HI* (11/24/22 9:25 AM) Lymph BF 10 % *NA* (11/24/22 11:48 AM) O2 Sat Carlos Eduardo 51 % *NA* (11/24/22 9:25 AM) eGFR Non-AA [>=60] 101 (11/24/22 9:25 AM) eGFR AA [>=60] 101 (11/24/22 9:25 AM) Base Excess Venous 10.3 mmol/L *NA* (11/24/22 9:25 AM) Chloride Level [98-107 mmol/L] 84 mmol/L *LOW* (11/24/22 9:25 AM) Procalcitonin [0.00-0.50 ng/mL] 1.31 ng/ mL *HI* (11/24/22 9:25 AM) RDW-CV [11.5-14.5 %] 15.0 % *HI* (11/24/22 9:25 AM) Slide Review Man Diff (11/24/22 9:25 AM) Clostridium Difficile Toxin [Negative] N egative (11/24/22 12:11 PM) Creatinine Level [0.70-1.30 mg/dL] 0.93 mg/dL (11/24/22 9:25 AM) Employed 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 Unknown *NA* (11/24/22 9:25 AM) Symptomatic as defined by CDC? Unknown *NA* (11/24/22 9:25 AM) Hospitalized due to COVID-19? Unknown *NA* (9/20/23 9:25 AM) In ICU? Unknown *NA* (11/24/22 9:25 AM) Group care resident? Unknown *NA* (11/24/22 9:25 AM) status? Unknown *NA* (11/24/22 9:25 AM) SARS-CoV-2(Covid19)PCR(GXpert COVFLURSV) [Negative] Negative (11/24/22 9:25 AM) Flu A ([facility]Xpert COVFLURSV) [Negative] Nega tive (11/24/22 9:25 AM) RSV ([facility]pert COVFLURSV) [Negative] Negati ve (11/24/22 9:25 AM) Flu B (GXpert COVFLURSV) [Negative] Nega tive (11/24/22 9:25 AM) Salmonella PCR [facility] [Negative] Negative *NA* (11/24/22 12:11 PM) Shigella/Enteroinvasive E. coli [facility] [Neg ative] Negative *NA* (11/24/22 12:11 PM) HN LAB CAMPYLOBACTER PCR [facility] [Negative] Negative *NA* (11/24/22 12:11 PM) Shiga Toxin PCR [facility] [Negative] Negative 9 *NA* (11/24/22 12:11 PM) Baso Man [0-1 %] 0 % (11/24/22 9:25 AM) Osmolality Measured [280-300 mOsm/kg] 26 0 mOsm/kg *LOW* (11/24/22 9:25 AM) 1Result Comment: Collection date/time has been modified to: 09:25:00. Previous collection date/time: 09:37:00. 2Result Comment: Collection date/time has been modified to: 09:25:00. Previous collection date/time: 09:37:00. 3Interpretive Data: INR 2-2.5 Prophylaxis: Short term DVT INR 2-3 Prophylaxis: hip and femur surgery Therapy: DVT (3 mos) PE (3-6 mos) TIA (alf) Atr Fib (terminal carman) Syst. emb post LA Mitral Stenosis with emboli (terminal carman) Tissue prosthetic valves (3 mos min) INR 3-4.5 Therapy: recurrent DVT, PE (terminal carman) Prosthetic heart valves (alf) 4Interpretive Data: INR 2-2.5 Prophylaxis: Short term DVT INR 2-3 Prophylaxis: hip and femur surgery Therapy: DVT (3 mos) PE (3-6 mos) TIA (alf) Atr Fib (terminal carman) Syst. emb post LA Mitral Stenosis with emboli (terminal carman) Tissue prosthetic valves (3 mos min) INR 3-4.5 Therapy: recurrent DVT, PE (terminal carman) Prosthetic heart valves (alf) 5Result Comment: Called to and verbally verified by Danielle Mueller (ER) at _11/24/2022 10:09:41 EDT PJB. 6Interpretive Data: Effective 12/24/21, [facility] has switched to a revised Lipase test.Note new ReferenceRange. 7Interpretive Data: Reference ranges are unavailable. Results should be interpreted in the context of the clinical setting. 8Result Comment: Called to and verbally verified by Danielle Mueller at 11/24/2022 09:37:30 EDT_. 9Result Comment: Test performed [place] [address] Orders for Microbiology Reports Name Date Body Fluid Culture 11/24/22 Microbiology Reports TEST:Body Fluid Culture STATUS:Order in Progress BODY SITE:Abdomen SOURCE:Ascites Fluid COLLECTED DATE/TIME:11/24/22 11:50 AM PRELIMINARY REPORT No growth at 24 hours. STAIN REPORT No organisms seen. Vital Signs Most recent to oldest [Reference Range]: 1 2 3 Temperature Temporal Artery [36-38 Deg C] 37.4 Deg C (11/24/22 9:06 AM) Peripheral Pulse Rate [60-100 bpm] 108 bpm *HI* (11/24/22 2:30 PM) 109 bpm *HI* (11/24/22 2:00 PM) 109 bpm *HI* (11/24/22 1:21 PM) Heart Rate Monitored [60-100 bpm] 109 bpm *HI* (11/24/22 2:30 PM) 111 bpm *HI* (11/24/22 2:00 PM) 110 bpm *HI* (11/24/22 1:21 PM) Respiratory Rate [12-24 br/min] 18 br/min (11/24/22 2:30 PM) 10 br/min *LOW* (11/24/22 2:00 PM) 18 br/min (11/24/22 1:21 PM) Blood Pressure [90-140/60-90 mmHg] 103/70mmHg (11/24/22 2:30 PM) 107/90mmHg (11/24/22 2:00 PM) 111/67mmHg (11/24/22 1:21 PM) Mean Arterial Pressure Cuff 80 mmHg (11/24/22 1:21 PM) Weight 69.00 kg (11/24/22 9:06 AM) Weight Dosing 69.00 kg (11/24/22 9:20 AM) Height 180.000 cm (11/24/22 9:06 AM) Height/Length Dosing 180.000 cm (11/24/22 9:20 AM) Body Mass Index 21.000 kg/m2 (11/24/22 9:06 AM) Social History Social History Type Response Tobacco Current everyday tob acco user Tobacco Use:. 1.5 PPD per day. Sex Male Physician Emergency department Note * Irwin Martin MD: PERFORM Event Display: ED Note Physician Authored Date: [id number] MICHAELYONGMONISHA :1975 Age:47 years Sex:Male Visit Date:11/24/2022 Basic Information Time Seen: Irwin Martin MD / 11/24/2022 09:24 Chief Complaint Pt with new onset jaundice, abd distension, BLE edema, lethargy, and vomiting for several weeks. Ptreports last drink was bacardi yesterday afternoon. States I don't drink as much as I used to. Denies pain, states just week'. History Of Present Illness: .Presenting concern is weakness. ??Time of onset is over the past few weeks. ??Patient reports??swelling of his ankles and abdomen.?? He does not have a primary care provider.?? He has been drinking??daily for 28 years.?? Takes no medications.?? He is brought by his girlfriend Review of Systems: Review of systems negative for fever, chest pain, urinary symptoms, abnormal bleeding, headache, hallucinations.?? Review of systems is positive for??shortness of breath, vomiting, abdominal distention. Physical Exam Vitals & Measurements T:??37.4?C ??(Temporal Artery)?? HR:??109??(Peripheral)?? HR:??110??(Monitored)?? RR:??18?? BP:??111/67?? SpO2:??97%?? HT:??180.000??cm?? WT:??69.00??kg?? BMI:??21.000?? O2 Therapy:??Room air?? Patient is jaundiced. ??He is??many spider angiomata over his??anterior chest.?? Sclera are icteric.?? Breath sounds are diminished. ??Heart sounds are remote??with tachycardia. ??No appreciable murmur.?? Abdomen is distended and nontender. ??Extremities show moderate edema.?? Asterixis is absent. Medical Decision Making: Problem complexity is life-threatening.?? Data complexity is moderate...?? Management risk are high.?? [facility] coding 70771. Procedure Miranda??centesis under ultrasound guidance??performed Dr. Castaneda with aspiration of??straw-colored fluid.?? 10 mL??submitted to??laboratory for??evaluation. No Qualifying Data Assessment/Plan Ordered: cefTRIAXone, 2 g = 1 EA, IV Piggyback, Powder-Inj, every 24 hr, Antibiotic Indication Other (specify in order comments), Administer over: 0.5 hr, First Dose: 11/24/22 11:07:00 EDT, STAT, 200 mL/hr Dextrose 5% with 0.9% NaCl 1,000 mL, Total Volume (mL): 1,000, 1,000 mL, Soln- IV, IV, 125 mL/hr, Order Duration: 30 days, Start Date: 11/24/22 12:18:00 EDT, Stop Date: 12/24/22 12:17:00 EDT, 69 kg, Populate Charting Weight From Order, 1.86, m2 lidocaine 1% injectable solution, 100 mg 10 mL, Intradermal, Soln, Once, First Dose: 11/24/22 10:41:00 EDT, Stop Date: 11/24/22 10:41:00 EDT, Physician Stop, STAT Blood Culture, Blood, Routine collect, RT - Routine, 11/24/22 9:58:00 EDT, Once, Lab Collect, PrintLabel Blood Culture, Blood, Routine collect, RT - Routine, 11/24/22 9:58:00 EDT, Once, Lab Collect, PrintLabel Blood Gas Venous, Blood, Stat, 11/24/22 9:35:00 EDT, Once, Lab Collect Body Fluid Culture, Ascites Fluid, Abdomen, Routine collect, RT - Routine, 11/24/22 11:50:00 EDT, Once, Nurse collect Cell Count w/ Diff Body Fluid, Body Fluid, Routine Collect, 11/24/22 10:41:00 EDT, Once, Nurse collect, Print Label Clostridium Difficile, Stool, Stat Collect, 11/24/22 12:10:00 EDT, Once, Nurse collect, Print Label CT Abdomen and Pelvis w/ Contrast No PO, 11/24/22 12:47:00 EDT, Stat, Reason: Ascites, Transport Mode: Stretcher, Exam to be performed outside organization? CV EKG ED, 11/24/22 9:19:00 EDT, Stat, Reason: Chest Pain, Stop date and time 11/24/22 9:19:00 EDT,ORD_SET_REQ_DT_RANGE, Alvin's Internal Person Id Fecal Bacterial Pathogens by PCR [facility], Stool, Stat Collect, 11/24/22 12:10:00 EDT, Once, Nurse collect, Print Label Osmolality Urine, Urine, Stat Collect, 11/24/22 11:51:00 EDT, Once, Nurse collect, Print Label Urinalysis with Micro if Indicated and Culture if Indicated, Urine, Stat Collect, 11/24/22 9:58:00 EDT, Once, Nurse collect, Print Label Admission diagnosis is??hepatic failure??with ascites. Problem List/Past Medical History Ongoing No qualifying data Historical No qualifying data Medication Administration Given Dextrose 5% with 0.9% NaCl, 1000 mL, IV cefTRIAXone, IV Piggyback Allergies No Known Allergies Social History Alcohol Current, Liquor, Daily Electronic Cigarette/Vaping Electronic Cigarette Use: Never. Home/Environment Lives with Alone. Substance Use Current, Marijuana Tobacco Current everyday tobacco user Tobacco Use:. 1.5 PPD per day. Lab Results CBC and Differential?? LATEST RESULTS?? WBC?? 11/24/22 09:25?? 19.5 ??High?? RBC?? 11/24/22 09:25?? 2.5 ??Low?? Hgb?? 11/24/22 09:25?? 9.1 ??Low?? Hct?? 11/24/22 09:25?? 24.8 ??Low?? MCV?? 11/24/22 09:25?? 99.2 ??High?? MCH?? 11/24/22 09:25?? 36.4 ??High?? MCHC?? 11/24/22 09:25?? 36.7 ??High?? RDW-CV?? 11/24/22 09:25?? 15.0 ??High?? Platelets?? 11/24/22 09:25?? 211?? Segs Man?? 11/24/22 09:25?? 74?? Lymph Man?? 11/24/22 09:25?? 12 ??Low?? Bullock Man?? 11/24/22 09:25?? 14?? Eos Man?? 11/24/22 09:25?? 0 ??Low?? Baso Man?? 11/24/22 09:25?? 0?? Band Man?? 11/24/22 09:25?? 0?? RBC Morph?? 11/24/22 09:25?? Normal?? Slide Review?? 11/24/22 09:25?? Man Diff? Coagulation?? LATEST RESULTS?? Prothrombin Time?? 11/24/22 09:37?? 15.9 ??High?? INR?? 11/24/22 09:37?? 1.6? Routine Chemistry?? LATEST RESULTS?? Sodium Level?? 11/24/22 09:25?? 122 ??Critical?? Potassium Level?? 11/24/22 09:25?? 3.6?? Chloride Level?? 11/24/22 09:25?? 84 ??Low?? CO2?? 11/24/22 09:25?? 30?? Alk Phos?? 11/24/22 09:25?? 187 ??High?? AST?? 11/24/22 09:25?? 96 ??High?? ALT?? 11/24/22 09:25?? 38?? BUN?? 11/24/22 09:25?? 36 ??High?? Glucose Level?? 11/24/22 09:25?? 123 ??High?? Creatinine Level?? 11/24/22 09:25?? 0.93?? eGFR AA?? 11/24/22 09:25?? 101?? eGFR Non-AA?? 11/24/22 09:25?? 101?? Calcium Level?? 11/24/22 09:25?? 7.7 ??Low?? Protein Total?? 11/24/22 09:25?? 5.4 ??Low?? Albumin Level?? 11/24/22 09:25?? 1.9 ??Low?? Bilirubin Total?? 11/24/22 09:25?? 11.4 ??High?? Ammonia Level?? 11/24/22 09:25?? 10 ??Low?? Lactic Acid Lvl?? 11/24/22 09:25?? 3.7 ??Critical?? Lipase Level?? 11/24/22 09:25?? 41?? Magnesium Level?? 11/24/22 09:25?? 1.9?? Osmolality Measured?? 11/24/22 09:25?? 260 ??Low? Endocrinology?? LATEST RESULTS?? Procalcitonin?? 11/24/22 09:25?? 1.31 ??High? Serum Toxicology?? LATEST RESULTS?? Ethanol Level?? 11/24/22 09:25?? <5? Infectious Disease?? LATEST RESULTS?? Employed 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?? 11/24/22 09:25?? Unknown?? Symptomatic as defined by CDC??? 11/24/22 09:25?? Unknown?? Hospitalized due to COVID-19??? 11/24/22 09:25?? Unknown?? In ICU??? 11/24/22 09:25?? Unknown?? Group care resident??? 11/24/22 09:25?? Unknown?? status??? 11/24/22 09:25?? Unknown?? SARS-CoV-2(Covid19)PCR(GXpert COVFLURSV)?? 11/24/22 09:25?? Negative?? Flu A (GXpert COVFLURSV)?? 11/24/22 09:25?? Negative?? Flu B (GXpert COVFLURSV)?? 11/24/22 09:25?? Negative?? RSV (GXpert COVFLURSV)?? 11/24/22 09:25?? Negative? Body Fluids?? LATEST RESULTS?? Segs BF?? 11/24/22 11:48?? 25?? Lymph BF?? 11/24/22 11:48?? 10?? Monocyte BF?? 11/24/22 11:48?? 65?? Eos BF?? 11/24/22 11:48?? 0?? Basophil BF?? 11/24/22 11:48?? 0? Electronically Signed on 11/24/22 01:47 PM Irwin Martin MD Patient Care team information Care Team Personnel Name: Soledad Bowers Position: Nurse Member Role: ED Nurse Name: Irwin Martin MD Position: Physician Member Role: ED Physician Address: Address: [address] [place] [id number]
--- OUTSIDE RECORDS SUMMARY | 2023-12-26 11:38 | XMS_ITS | Encounter Summary ---
Author Organization [facility] Address [address] [place] [address] Care Team Providers Care Body Hanger Name Role Phone Unavailable Primary Care Provider Unavailabl e Encounter Details Date Type Department Care Team (Late st Contact Info) Description 11/24/2022 Lab Requisition [facility] Pathology & Laboratory Medicine - [facility] [address] [place] [address] Outr Resulting Lab, Provider Social History Tobacco Use Types Packs/Day Years Used Date Smoking Tobacco: Never Assessed Sex and Gender Information Value Date Recorded Sex Assigned at Not on file Gender Identity Not on file Sexual Orientation Not on file documented as of this encounter Plan of Treatment Not on file documented as of this encounter Procedures Procedure Name Priority Date/Time Associated Diagnosis Comments FECAL BACTERIAL PATHOGENS BY PCR Routine 11/24/2022 12:11 EDT documented in this encounter Results * FECAL BACTERIAL PATHOGENS BY PCR (11/24/2022 12:11 EDT) Salmonella PCR Negative Negative 11/25/2022 10:52 EDT [facility] Shigella/Enteroin vasive E. coli Negative Negative 11/25/2022 10:52 EDT [facility] HN LAB CAMPYLOBACTER PCR Negative Negative 11/25/2022 10:52 EDT [facility] Shiga Toxin PCR Negative Negative 10:52 EDT [facility] Feces SPECIMEN FROM RECTUM / Unknown 11/24/2022 12:11 EDT 11/24/2022 22:47 EDT Provider Outr Resulting Lab MICROBIOLOGY - GENERAL ORDERABLES [facility] [address] [place] [address] documented in this encounter Visit Diagnoses Not on filedocumented in this encounter
--- OUTSIDE RECORDS SUMMARY | 2023-12-26 11:38 | XMS_ITS | Continuity of Care Document ---
Author Organization [facility] Address [address] [place] [address] Care Team Providers Care Rail Maintenance Worker Name Role Phone Car Boucher Primary Care Physician Encounter [facility] Date(s): 12/12/23 - 12/12/[address] [id number] Discharge Disposition: Home or Self Care Attending Physician: Tonia Hauser PA-C Admitting Physician: Tonia Hauser PA-C Referring Physician: Tonia Hauser PA-C Allergies, Adverse Reactions, Alerts No Known Allergies Assessment and Plan Future Appointments Diagnostic Tests Pending * Thyroid-Stimulating Immunoglob., S NAZARIO 12/12/23 Medications folic acid 0 Refill(s) Start Date: [...] Confirmed Active Results Laboratory List Name Date Free T4 12/12/23 Lipid Panel 12/12/23 T3, Free [facility] 12/12/23 T3, Total [facility] 12/12/23 T4 12/12/23 Thyroglobulin Antibody [facility] 12/12/23 Thyroid Stimulating Hormone 12/12/23 Most recent to oldest [Reference Range]: 1 Cholesterol Total [50-200 mg/dL] 142 mg/ dL (12/12/23 12:47 PM) T4 [4.7-13.3 mcg/dL] 10.6 mcg/dL (12/12/23 12:47 PM) LDL [0-130 mg/dL] 70 mg/dL (12/12/23 12:47 PM) HDL [40-60 mg/dL] 61 mg/dL *HI* (12/12/23 12:47 PM) T4 Free [0.76-1.46 ng/dL] 1.16 ng/dL (12/12/23 12:47 PM) Triglycerides [0-150 mg/dL] 54 mg/dL (12/12/23 12:47 PM) TSH [0.358-3.740 mcIntlUnit/mL] 0.069 mc IntlUnit/mL *LOW* (12/12/23 12:47 PM) Anti-Thyroglobulin [facility] [<=60 unit/mL] <1 5 unit/mL 1 *NA* (12/12/23 12:47 PM) T3, Total [facility] [97-169 ng/dL] 175 ng/dL 2 *HI* (12/12/23 12:47 PM) T3, Free [facility] [2.8-5.3 pg/mL] 5.2 pg/mL 3 *NA* (12/12/23 12:47 PM) 1Result Comment: Test performed [place] [address] 2Result Comment: Test [place] [address] 3Result Comment: Test performed [place] [address] Social History Social History Type Response Tobacco Current everyday tob acco user Tobacco Use:. 1.5 PPD per day. Sex Male Sex Representation Male (finding) Consult note * Bekah Levine: PERFORM Event Display: Consultation Note Generic Authored Date: Patient Care team information Care Team Personnel Name: Car Boucher MD Position: Physician Member Role: Informed Provider Address: [address] Care Team Related Persons Name: CARROLL RODRIGUEZ Insurance Providers Guarantor name: MONISHA RODRIGUEZ Health Plan Information #: 1 [address]ayer: [facility] MEDICA[employer] Member Number: [id number] Policy Number: NA Health Plan Information #: 2 Payer: [facility] MEDICA[employer] Member Number: [id number] Policy Number: NA Health Plan Information #: 3 Payer: [facility] MEDICA[employer] Member Number: [id number] Policy Number: NA
--- OUTSIDE RECORDS SUMMARY | 2023-12-26 11:38 | XMS_ITS | Encounter Summary ---
Author Organization [facility] Address [address] [place] [address] Care Team Providers Care Air Hose Coupler Name Role Phone Unavailable Primary Care Provider Unavailabl e Encounter Details Date Type Department Care Team (Late st Contact Info) Description 12/12/2023 Lab Requisition [facility] Pathology & Laboratory Medicine - [facility] [address] [place] [address] Outr Resulting Lab, Provider Social History Tobacco [...] Procedure Name Priority Date/Time Associated Diagnosis Comments ANTI THYROGLOBULIN Routine 12/12/2023 12 :47 EDT T3 FREE Routine 12/12/2023 12:47 EDT T3, TOTAL Routine 12/12/2023 12:47 EDT documented in this encounter Results * T3 FREE (12/12/2023 12:47 EDT) T3, Free 5.2 2.8 - 5.3 pg/mL 12/12/2023 22:52 EDT [facility] Blood VENOUS BLOOD / Unknown 12/12/2023 12:47 EDT 12/12/2023 22:19 EDT Provider Outr Resulting Lab CHEMISTRY & BLOOD GAS ORDERABLES [facility] [address] [place], [place] [id number] * (ABNORMAL) T3, TOTAL (12/12/2023 12:47 EDT) T3, Total 175(H) 97 - 169 ng/dL 12/12/2023 23:06 EDT [facility] Blood VENOUS BLOOD / Unknown 12/12/2023 12:47 EDT 12/12/2023 22:19 EDT Provider Outr Resulting Lab CHEMISTRY & BLOOD GAS ORDERABLES [facility] [address] [place] [address] * ANTI THYROGLOBULIN (12/12/2023 12:47 EDT) Pathologist [facility] Anti-Thyroglob ulin <15 <=60 U/mL 12/13/2023 9:22 EDT [facility] Blood VENOUS BLOOD / Unknown 12/12/2023 12:47 EDT 12/12/2023 22:19 EDT Provider Outr Resulting Lab CHEMISTRY & BLOOD GAS ORDERABLES [facility] [address] [place], [place] [id number] documented in this encounter Visit Diagnoses Not on filedocumented in this encounter
--- OUTSIDE RECORDS SUMMARY | 2023-12-26 11:38 | XMS_ITS | Encounter Summary ---
Author Organization [facility] Address [address] [place] [address] Care Team Providers Care Colorist Photography Name Role Phone Unavailable Primary Care Provider Unavailabl e Encounter Details Date Type Department Care Team (Late st Contact Info) Description 11/28/2023 Lab Requisition [facility] Pathology & Laboratory Medicine - [facility] [address] [place] [address] Outr Resulting Lab, Provider Social History Tobacco [...] Procedure Name Priority Date/Time Associated Diagnosis Comments HOLD SST Today 11/28/2023 11:11 EDT PROLACTIN Today 11/28/2023 11:11 EDT TESTOSTERONE Today 11/28/2023 11:11 EDT LH Today 11/28/2023 11:11 EDT FSH Today 11/28/2023 11:11 EDT documented in this encounter Results * HOLD SST (11/28/2023 11:11 EDT) Hold Hold 11/28/2023 23:01 EDT [facility] Blood VENOUS BLOOD / Unknown 11/28/2023 11:11 EDT 11/28/2023 21:55 EDT Provider Outr Resulting Lab LAB INFO SER VICE AND SUPPORT & PHONE RESULT [facility] [address] [place], [place] [id number] * TESTOSTERONE (11/28/2023 11:11 EDT) Testosterone 601 229 - 902 ng/dL 11/28/2023 22:54 EDT [facility] Blood VENOUS BLOOD / Unknown 11/28/2023 11:11 EDT 11/28/2023 21:55 EDT Narrative [facility] - 11/28/2023 22:54 EDT The results of this assay can be falsely elevated due to the consumption of Biotin. Provider Outr Resulting Lab CHEMISTRY & BLOOD GAS ORDERABLES Performing Organization Address [facility] Co de Phone Number [facility] [address] [place], [place] [phone] * PROLACTIN (11/28/2023 11:11 EDT) Prolactin 9.6 2.1 - 17.7 ng/mL 11/28/2023 22:54 EDT [facility] Blood VENOUS BLOOD / Unknown 11/28/2023 11:11 EDT 11/28/2023 21:55 EDT Provider Outr Resulting Lab CHEMISTRY & BLOOD GAS ORDERABLES Performing Organization Address [facility] Co de Phone Number [facility] [address] [place], [place] [phone] * (ABNORMAL) LH (11/28/2023 11:11 EDT) Luteinizing Hormone 12.6(H) 1.5 - 9.3 mIU/mL 11/28/2023 22:55 EDT [facility] Blood VENOUS BLOOD / Unknown 11/28/2023 11:11 EDT 11/28/2023 21:55 EDT Provider Outr Resulting Lab CHEMISTRY & BLOOD GAS ORDERABLES Performing Organization Address City/[facility]/ZIP Co de Phone Number [facility] [address] [place] [address] * (ABNORMAL) FSH (11/28/2023 11:11 EDT) FSH 31.2(H) 1.4 - 18.1 mIU/mL 11/28/2023 22:54 EDT [facility] Blood VENOUS BLOOD / Unknown 11/28/2023 11:11 EDT 11/28/2023 21:55 EDT Provider Outr Resulting Lab CHEMISTRY & BLOOD GAS ORDERABLES Performing Organization Address [facility]/ZIP Co de Phone Number [facility] [address], [place] [phone] documented in this encounter Visit Diagnoses Not on filedocumented in this encounter
--- OUTSIDE RECORDS SUMMARY | 2023-12-26 11:38 | XMS_ITS | Encounter Summary ---
Author Organization [facility] Address [address] [place] [address] Care Team Providers Care Sandwich Counter Attendant Name Role Phone Unavailable Primary Care Provider Unavailabl e Encounter Details Date Type Department Care Team (Late st Contact Info) Description 01/30/[address] [facility] Pathology & Laboratory Medicine - [facility] [address] [place], [place] [address] Outr Resulting Lab, Provider Social History Tobacco [...] Procedure Name Priority Date/Time Associated Diagnosis Comments TOTAL PROTEIN, FLUID Routine 01/30/2023 16:51 EST LDH, FLUID Routine 01/30/2023 16:51 EST GLUCOSE, FLUID Routine 01/30/2023 16:51 EST documented in this encounter Results * LDH, FLUID (01/30/2023 16:51 EST) LDH, Fluid 01/31/2023 22:26 EST [facility] Comment: Unable to assay Fluid LDH; Total Protein concentration of fluid is less than 2.0 g/dL Reference range unavailable. Clinical correlation required. This Fluid LDH assay was developed and its performance characteristics determined by [facility]. ??It has not been cleared or approved by the [place] Food and Drug Administration. Fluid ASCITIC FLUID / Unknown 01/30/2023 16:51 EST 01/31/2023 21:14 EST Provider Outr Resulting Lab GEN LAB UNIT COLLECT ORDERABLES [facility] [address] [place] [address] * GLUCOSE, FLUID (01/30/2023 16:51 EST) Glucose, Fluid 117 See Note mg/dL 01/31/2023 22:27 EST [facility] Comment: Ascitic fluid Reference range unavailable. Clinical correlation required. This Fluid Glucose assay was developed and its performance characteristics determined by [facility]. ??It has not been cleared or approved by the Food and Drug Administration. Fluid ASCITIC FLUID / Unknown 01/30/2023 16:51 EST 01/31/2023 21:14 EST Provider Outr Resulting Lab GEN LAB UNIT COLLECT ORDERABLES Performing Organization Address [facility] Co de Phone Number [facility] [address] [place] [address] * TOTAL PROTEIN, FLUID (01/30/2023 16:51 EST) Total Protein, Fluid <2.0 See Note g/dL 01/31/2023 22:26 EST [facility] Comment: Ascitic fluid Reference range unavailable. Clinical correlation required. This Fluid Total Protein assay was developed and its performance characteristics determined by [facility]. ??It has not been cleared or approved by the [place] Food and Drug Administration. Fluid ASCITIC FLUID / Unknown 01/30/2023 16:51 EST 01/31/2023 21:14 EST Provider Outr Resulting Lab GEN LAB UNIT COLLECT ORDERABLES Performing Organization Address City/[facility] Co de Phone Number [facility] [address] [place] [address] documented in this encounter Visit Diagnoses Not on filedocumented in this encounter
--- OUTSIDE RECORDS SUMMARY | 2023-12-26 11:38 | XMS_ITS | Continuity of Care Document ---
Author Organization [facility] Address [address] [place] [address] Care Team Providers Care Branch Specialist Name Role Phone Car Boucher Primary Care Physician [phone] Encounter [id number] Date(s): 11/28/23 - 11/28/[address] [id number] Discharge Disposition: Home or Self Care Attending Physician: Unavailable, Physician Admitting Physician: Unavailable, Physician Referring Physician: Unavailable, Physician Allergies, Adverse Reactions, Alerts No Known Allergies [...] Confirmed Active Results Laboratory List Name Date C-Reactive Protein 11/28/23 Comprehensive Metabolic Panel 11/28/23 ESR [facility] 11/28/23 FSH [facility] 11/28/23 Free T4 11/28/23 LH [facility] 11/28/23 Lactate Dehydrogenase 11/28/23 Lactic Acid 11/28/23 Prolactin [facility] 11/28/23 TSH w/ Rflx to Free T4 11/28/23 Testosterone [facility] 11/28/23 Uric Acid 11/28/23 Most recent to oldest [Reference Range]: 1 BUN [7-18 mg/dL] 8 mg/dL (11/28/23 11:11 AM) Glucose Level [74-106 mg/dL] 96 mg/dL (11/28/23 11:11 AM) Potassium Level [3.5-5.1 mmol/L] 4.3 mmo l/L (11/28/23 11:11 AM) T4 Free [0.76-1.46 ng/dL] 1.29 ng/dL (11/28/23 11:11 AM) CRP [<=10.0 mg/L] 1.3 mg/L (11/28/23 11:11 AM) AST [15-37 unit/L] 35 unit/L (11/28/23 11:11 AM) ALT [16-63 unit/L] 25 unit/L (11/28/23 11:11 AM) Sodium Level [136-145 mmol/L] 137 mmol/L (11/28/23 11:11 AM) Calcium Level [8.5-10.1 mg/dL] 9.2 mg/dL (11/28/23 11:11 AM) Albumin Level [3.4-5.0 g/dL] 3.6 g/dL (11/28/23 11:11 AM) Protein Total [6.4-8.2 g/dL] 7.5 g/dL (11/28/23 11:11 AM) Bilirubin Total [0.2-1.0 mg/dL] 1.0 mg/d L (11/28/23 11:11 AM) Uric Acid [3.5-7.2 mg/dL] 4.5 mg/dL (11/28/23 11:11 AM) Alk Phos [46-146 unit/L] 114 unit/L (11/28/23 11:11 AM) LDH [85-227 unit/L] 143 unit/L (11/28/23 11:11 AM) CO2 [21-32 mmol/L] 24 mmol/L (11/28/23 11:11 AM) Lactic Acid Lvl [0.7-2.0 mmol/L] 1.2 mmo l/L (11/28/23 11:11 AM) TSH [0.358-3.740 mcIntlUnit/mL] 0.135 mc IntlUnit/mL 1 *LOW* (11/28/23 11:11 AM) eGFR Non-AA [>=60] 118 (11/28/23 11:11 AM) eGFR AA [>=60] 118 (11/28/23 11:11 AM) Chloride Level [98-107 mmol/L] 101 mmol/ L (11/28/23 11:11 AM) Creatinine Level [0.70-1.30 mg/dL] 0.60 mg/dL *LOW* (11/28/23 11:11 AM) miniiSED ESR [0-20 mm/hr] 11 mm/hr (11/28/23 11:11 AM) FSH [facility] [1.4-18.1 mIntlUnit/mL] 31.2 mIn tlUnit/mL 2 *HI* (11/28/23 11:11 AM) Luteinizing Hormone [facility] [1.5-9.3 mIntlUn it/mL] 12.6 mIntlUnit/mL 3 *HI* (11/28/23 11:11 AM) Prolactin [facility] [2.1-17.7 ng/mL] 9.6 ng/mL 4 *NA* (11/28/23 11:11 AM) Testosterone [facility] [229-902 ng/dL] 601 ng/ dL 5 *NA* (11/28/23 11:11 AM) 1Result Comment: Result verified by repeat analysis 2Result Comment: Test performed [place] [address] 3Result Comment: Test performed [place] [address] 4Result Comment: Test performed [place] [address] 5Result Comment: The results of this assay can be falsely elevated due to the consumption of Biotin. Test performed [place] [address] Social History Social History Type Response Tobacco Current everyday tob acco user Tobacco Use:. 1.5 PPD per day. Sex Male Sex Representation Male (finding) Consult note * Bekah Levine C: PERFORM Event Display: Consultation Note Generic Authored Date: Patient Care team information Care Team Personnel Name: Car Boucher MD Position: Physician Member Role: Informed Provider [address]: [address] Care Team Related Persons Name: CARROLL RODRIGUEZ Insurance Providers Guarantor name: MONISHA RODRIGUEZ Health Plan Information #: 1 Payer: [facility] [employer] Member Number: [id number] Policy Number: NA Health Plan Information #: 2 Payer: [facility] [employer] Member Number: [id number] Policy Number: NA Health Plan Information #: 3 Payer: [facility] [employer] Member Number: [id number] Policy Number: NA
--- OUTSIDE RECORDS SUMMARY | 2023-12-26 11:38 | XMS_ITS | Continuity of Care Document ---
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 Name Role Phone Car Boucher Primary Care Physician [phone] Encounter [facility] Date(s): 11/15/23 - 11/15/[address] [address] Encounter Diagnosis Right inguinal hernia(Discharge Diagnosis) - 11/15/23 Discharge Disposition: Home or Self Care Attending Physician: Tisha Duval MD Admitting Physician: Tisha Duval MD Allergies, Adverse Reactions, Alerts No Known Allergies Assessment and Plan Extracted from: Title:ED Provider Note Author:Tisha Duval Ma, MD Date:11/15/23 Assessment/Plan 1.??Right inguinal hernia??K40.90 Ordered: Discharge Patient, 11/15/23 10:52:00 EDT, Constant Indicator ?? Patient Education Inguinal Hernia, Adult Medications folic acid 0 Refill(s) Start Date: [...] Active End stage liver disease Confirmed Active Vital Signs Most recent to oldest [Reference Range]: 1 Temperature Temporal Artery [36-38 Deg C ] 36.4 Deg C (11/15/23 9:36 AM) Peripheral Pulse Rate [60-100 bpm] 83 bp m (11/15/23 9:36 AM) Respiratory Rate [12-24 br/min] 16 br/mi n (11/15/23 9:36 AM) Blood Pressure [90-140/60-90 mmHg] 116/8 3mmHg (11/15/23 9:36 AM) Mean Arterial Pressure, Cuff [65-140 mmH g] 94 mmHg (11/15/23 9:36 AM) Weight Estimated 73.94 kg (11/15/23 9:36 AM) Body Mass Index Estimated 24.07 kg/m2 (11/15/23 9:36 AM) Height/Length Estimated 175.26 cm (11/15/23 9:36 AM) Social History Social History Type Response Tobacco Current everyday tob acco user Tobacco Use:. 1.5 PPD per day. Sex Male Sex Representation Male (finding) Hospital Discharge Instructions Patient Education 11/15/2023 09:52:41 Inguinal Hernia, Adult Inguinal Hernia, Adult An inguinal hernia develops when fat or the intestines push through a weak spot in a muscle where the leg meets the lower abdomen (groin). This creates a bulge. This kind of hernia could also be: ??? In the scrotum, if you are male. ??? In folds of skin around the vagina, if you are female. There are three types of inguinal hernias: ??? Hernias that can be pushed back into the abdomen (are reducible). This type rarely causes pain. ??? Hernias that are not reducible (are incarcerated). ??? Hernias that are not reducible and lose their blood supply (are strangulated). This type of hernia requires emergency surgery. What are the causes? This condition is caused by having a weak spot in the muscles or tissues in your groin. This develops over time. The hernia may poke through the weak spot when you suddenly strain your lower abdominal muscles, such as when you: ??? Lift a heavy object. ??? Strain to have a bowel movement. Constipation can lead to straining. ??? Cough. What increases the risk? This condition is more likely to develop in: ??? Males. ??? females. ??? People who: ??? Are overweight. ??? Work in jobs that require long periods of standing or heavy lifting. ??? Have had an inguinal hernia before. ??? Smoke or have lung disease. These factors can lead to long-term (chronic) coughing. What are the signs or symptoms? Symptoms may depend on the size of the hernia. Often, a small inguinal hernia has no symptoms. Symptoms of a larger hernia may include: ??? A bulge in the groin area. This is easier to see when standing. It might not be visible when lying down. ??? Pain or burning in the groin. This may get worse when lifting, straining, or coughing. ??? A dull ache or a feeling of pressure in the groin. ??? An unusual bulge in the scrotum, in males. Symptoms of a strangulated inguinal hernia may include: ??? A bulge in your groin that is very painful and tender to the touch. ??? A bulge that turns red or purple. ??? Fever, nausea, and vomiting. ??? Inability to have a bowel movement or to pass gas. How is this diagnosed? This condition is diagnosed based on your symptoms, your medical history, and a physical exam. Yourhealth care provider may feel your groin area and ask you to cough. How is this treated? Treatment depends on the size of your hernia and whether you have symptoms. If you do not have symptoms, your health care provider may have you watch your hernia carefully and have you come in for follow-up visits. If your hernia is large or if you have symptoms, you may need surgery to repair the hernia. Follow these instructions at home: Lifestyle ??? Avoid lifting heavy objects. ??? Avoid standing for long periods of time. ??? Do not use any products that contain nicotine or tobacco. These products include cigarettes, chewing tobacco, and vaping devices, such as e-cigarettes. If you need help quitting, ask your health care provider. ??? Maintain a healthy weight. Preventing constipation You may need to take these actions to prevent or treat constipation: ??? Drink enough fluid to keep your urine pale yellow. ??? Take igxw-jvz-uvnrqqy or prescription medicines. ??? Eat foods that are high in fiber, such as beans, whole grains, and fresh fruits and vegetables. ??? Limit foods that are high in fat and processed sugars, such as fried or sweet foods. General instructions ??? You may try to push the hernia back in place by very gently pressing on it while lying down. Donot try to force the bulge back in if it will not push in easily. ??? Watch your hernia for any changes in shape, size, or color. Get help right away if you notice any changes. ??? Take orvi-fhl-fqynvdx and prescription medicines only as told by your health care provider. ??? Keep all follow-up visits. This is important. Contact a health care provider if: ??? You have a fever or chills. ??? You develop new symptoms. ??? Your symptoms get worse. Get help right away if: ??? You have pain in your groin that suddenly gets worse. ??? You have a bulge in your groin that: ??? Suddenly gets bigger and does not get smaller. ??? Becomes red or purple or painful to the touch. ??? You are a man and you have a sudden pain in your scrotum, or the size of your scrotum suddenly changes. ??? You cannot push the hernia back in place by very gently pressing on it when you are lying down. ??? You have nausea or vomiting that does not go away. ??? You have a fast heartbeat. ??? You cannot have a bowel movement or pass gas. These symptoms may represent a serious problem that is an emergency. Do not wait to see if the symptoms will go away. Get medical help right away. Call your local emergency services (911 in the [place] Summary ??? An inguinal hernia develops when fat or the intestines push through a weak spot in a muscle where your leg meets your lower abdomen (groin). ??? This condition is caused by having a weak spot in muscles or tissues in your groin. ??? Symptoms may depend on the size of the hernia, and they may include pain or swelling in your groin. A small inguinal hernia often has no symptoms. ??? Treatment may not be needed if you do not have symptoms. If you have symptoms or a large hernia, you may need surgery to repair the hernia. ??? Avoid lifting heavy objects. Also, avoid standing for long periods of time. This information is not intended to replace advice given to you by your health care provider. Make sure you discuss any questions you have with your health care provider. Document Revised: 10/21/2020 Document Reviewed: 10/21/2020 Elsevier Patient Education ?? 2022 [employer] Consult note * Bekah Levine: PERFORM Event Display: Consultation Note Generic Authored Date: [id number] Physician Emergency department Note * Tisha Duval MD: PERFORM Event Display: ED Note Physician Authored Date: [id number] MONISHA RODRIGUEZ :1975 Age:48 years Sex:Male Visit Date:11/15/2023 Primary Care Physician: Car Boucher MD Basic Information Time Seen: Tisha Duval MD / 11/15/2023 10:14 Chief Complaint Pt states that a couple days ago he feels that he pulled something in his stomach, believes that hemay have a hernia in his groin area. Denies nausea vomiting or diarrhea. History Of Present Illness: Pt presents to the ED, he feels that he has a hernia and would like it checked. A few days ago he strained and felt some pain in his Rt inguinal region. He has had pain on and off since then. In the morning he sees no bulge but it is present when he strains.?? Physical Exam Vitals & Measurements T:??36.4?C ??(Temporal Artery)?? HR:??83??(Peripheral)?? RR:??16?? BP:??116/83?? SpO2:??97%?? HT:??175.26??cm?? WT:??73.94??kg??(Estimated)?? BMI:??24.07?? O2 Therapy:??Room air?? General: A&Ox3, Calm, no apparent distress, well developed, pleasant and cooperative ?? HEENT: Head ATNC. Eyes: ANAYELI. Extraocular Mobility: intact and symmetrical. Conjunctiva: non-injected, anicteric, no discharge. Oral Cavity: moist. Neck: no masses, no crepitus. Lymph Nodes: no cervical lymphadenopathy? Respiratory: CTA bilaterally, no wheezing, no rales/crackles? CV: RRR, normal S1, normal S2, no murmurs, rubs or gallops ?? Abdomen : soft, non-tender, non-distended, no rebound or guarding, no hepatosplenomegaly, Rt sided inguinal swelling easily reducible ?? Extremities: no le swelling, warm and well-perfused, no cyanosis, capillary refill <2 seconds? Skin: no rash, no lesions, no bruising? Neuro: normal tone, normal strength in all 4 extremities, sensation intact?? Medical Decision Making: Pt with Rt sided inguinal hernia, easily reducible. Pt is pain free at the moment. No concern for strangulation at the moment. Will need elective repair. He gets all his care at [facility]. I offered for him to f/u with our surgeons here and to get a preop CT today. He declined and prefers to reach out to [facility]. We discussed return precautions, all questions answered Procedure No Qualifying Data Assessment/Plan 1.??Right inguinal hernia??K40.90 Ordered: Discharge Patient, 11/15/23 10:52:00 EDT, Constant Indicator ?? Patient Education Inguinal Hernia, Adult Medication Reconciliation Unchanged folic acid ?? folic acid (folic acid 1 mg oral tablet)Oral (given by mouth). 1000 Unknown, 1 Refill(s), Take 1 tablet by mouth daily.. ?? furosemide ?? furosemide (furosemide 40 mg oral tablet)Oral (given by mouth). 40 Unknown, 3 Refill(s), Take 1 tablet by mouth daily.. ?? lactulose ?? lactulose (lactulose 10 g oral powder for reconstitution)Oral (given by mouth) 3 times a day. 20 Unknown, 3 Refill(s), Take 30 mLs by mouth 3 times daily. Titrate to 3-4 bowel movements a day. ?? multivitamin (multivitamin adult, oral tablet)Oral (given by mouth). 1 Unknown, 0 Refill(s), Take 1tablet by mouth daily.. ?? omeprazole (omeprazole 40 mg oral delayed release capsule)Oral (given by mouth) 2 times a day. 40 Unknown, 3 Refill(s), Take 1 capsule by mouth 2 times daily.. ?? pantoprazole (Protonix) ?? potassium chloride ?? potassium chloride (potassium chloride 10 mEq oral tablet, extended release)Oral (given by mouth). 10 Unknown, 3 Refill(s), Take 1 tablet by mouth daily.. ?? spironolactone ?? spironolactone (spironolactone 100 mg oral tablet)Oral (given by mouth). 100 Unknown, 11 Refill(s),Take 1 tablet by mouth daily.. Problem List/Past Medical History Ongoing Abdominal ascites End stage liver disease Historical No qualifying data Allergies No Known Allergies Social History Alcohol Past, Liquor, Daily Electronic Cigarette/Vaping Electronic Cigarette Use: Never. Home/Environment Lives with Alone. Substance Use Current, Marijuana Tobacco Current everyday tobacco user Tobacco Use:. 1.5 PPD per day. Electronically Signed on 11/15/2023 10:57 EDT Tisha Duval MD Emergency department Discharge instructions * Tisha Duval MD: PERFORM Event Display: ED Discharge Information Authored Date: [id number] MONISHA RODRIGUEZ :1975 Age:48 years Sex:Male Visit Date:11/15/2023 Primary Care Physician: Car Boucher MD Discharge Instructions We would like to thank you for allowing us to assist you with your healthcare needs. The following includes patient education materials and information regarding your injury/illness. Diagnosis from Today's Visit Right inguinal hernia Discharge Vitals Temperature??(Temporal Artery) 97.5 ??F (36.4 ??C) Heart Rate??(Peripheral) 83 Respiratory Rate?? 16 Blood Pressure?? 116/83?? SpO2?? 97% Height?? 69.00 in (175.26 cm) Weight??(Estimated) 163.04 lb (73.94 kg) BMI?? 24.07 Allergies No Known Allergies What to Do Next Instructions from Your Care Team Please follow up with your doctor at [facility] in the next few??days for surgical referral. Return to the ED for any new or worsening symptoms such as increased pain, bulge note retracting on pushingon it, change in the skin, inability to eat/drink, or for any other concern.?? You were treated today on an emergency basis; it may be galeano to contact your primary care provider to notify them of your visit today. You may have been referred to your regular doctor or a specialist, please follow up as instructed. If your condition worsens or you can't get in to see the doctor, contact the Emergency Department. Medications What How Much When Instructions Next Dose Unchanged folic acid Unchanged folic acid (folic acid 1 mg oral tablet) Oral (given by mouth) 1000 Unknown, 1 Refill(s), Take 1 tablet by mouth daily. ?? Unchanged furosemide Unchanged furosemide (furosemide 40 mg oral tablet) Oral (given by mouth) 40 Unknown, 3 Refill(s), Take 1 tablet by mouth daily. ?? Unchanged lactulose Unchanged lactulose (lactulose 10 g oral powder for reconstitution) Oral (given by mouth) 3 times a day 20 Unknown, 3 Refill(s), Take 30 mLs by mouth 3 times daily. Titrate to 3-4 bowel movements a day ?? Unchanged multivitamin (multivitamin adult, oral tablet) Oral (given by mouth) 1 Unknown, 0 Refill(s), Take 1 tablet by mouth daily. ?? Unchanged omeprazole (omeprazole 40 mg oral delayed release capsule) Oral (given by mouth) 2 times a day 40 Unknown, 3 Refill(s), Take 1 capsule by mouth 2 times daily. ?? Unchanged pantoprazole (Protonix) Unchanged potassium chloride Unchanged potassium chloride (potassium chloride 10 mEq oral tablet, extended release) Oral (given by mouth) 10 Unknown, 3 Refill(s), Take 1 tablet by mouth daily. ?? Unchanged spironolactone Unchanged spironolactone (spironolactone 100 mg oral tablet) Oral (given by mouth) 100 Unknown, 11 Refill(s), Take 1 tablet by mouth daily. ?? Education Materials Inguinal Hernia, Adult An inguinal hernia develops when fat or the intestines push through a weak spot in a muscle where the leg meets the lower abdomen (groin). This creates a bulge. This kind of hernia could also be: ? In the scrotum, if you are male. ? In folds of skin around the vagina, if you are female. There are three types of inguinal hernias: ? Hernias that can be pushed back into the abdomen (are reducible). This type rarely causes pain. ? Hernias that are not reducible (are incarcerated). ? Hernias that are not reducible and lose their blood supply (are strangulated). This type of hernia requires emergency surgery. What are the causes? This condition is caused by having a weak spot in the muscles or tissues in your groin. This develops over time. The hernia may poke through the weak spot when you suddenly strain your lower abdominal muscles, such as when you: ? Lift a heavy object. ? Strain to have a bowel movement. Constipation can lead to straining. ? Cough. What increases the risk? This condition is more likely to develop in: ? Males. ? females. ? People who: ? Are overweight. ? Work in jobs that require long periods of standing or heavy lifting. ? Have had an inguinal hernia before. ? Smoke or have lung disease. These factors can lead to long-term (chronic) coughing. What are the signs or symptoms? Symptoms may depend on the size of the hernia. Often, a small inguinal hernia has no symptoms. Symptoms of a larger hernia may include: ? A bulge in the groin area. This is easier to see when standing. It might not be visible when lying down. ? Pain or burning in the groin. This may get worse when lifting, straining, or coughing. ? A dull ache or a feeling of pressure in the groin. ? An unusual bulge in the scrotum, in males. Symptoms of a strangulated inguinal hernia may include: ? A bulge in your groin that is very painful and tender to the touch. ? A bulge that turns red or purple. ? Fever, nausea, and vomiting. ? Inability to have a bowel movement or to pass gas. How is this diagnosed? This condition is diagnosed based on your symptoms, your medical history, and a physical exam. Yourhealth care provider may feel your groin area and ask you to cough. How is this treated? Treatment depends on the size of your hernia and whether you have symptoms. If you do not have symptoms, your health care provider may have you watch your hernia carefully and have you come in for follow-up visits. If your hernia is large or if you have symptoms, you may need surgery to repair the hernia. Follow these instructions at home: Lifestyle ? Avoid lifting heavy objects. ? Avoid standing for long periods of time. ? Do not use any products that contain nicotine or tobacco. These products include cigarettes, chewing tobacco, and vaping devices, such as e-cigarettes. If you need help quitting, ask your health careprovider. ? Maintain a healthy weight. Preventing constipation You may need to take these actions to prevent or treat constipation: ? Drink enough fluid to keep your urine pale yellow. ? Take fqug-xgh-rdfmiaq or prescription medicines. ? Eat foods that are high in fiber, such as beans, whole grains, and fresh fruits and vegetables. ? Limit foods that are high in fat and processed sugars, such as fried or sweet foods. General instructions ? You may try to push the hernia back in place by very gently pressing on it while lying down. Do nottry to force the bulge back in if it will not push in easily. ? Watch your hernia for any changes in shape, size, or color. Get help right away if you notice any changes. ? Take pecl-okz-jrxndlw and prescription medicines only as told by your health care provider. ? Keep all follow-up visits. This is important. Contact a health care provider if: ? You have a fever or chills. ? You develop new symptoms. ? Your symptoms get worse. Get help right away if: ? You have pain in your groin that suddenly gets worse. ? You have a bulge in your groin that: ? Suddenly gets bigger and does not get smaller. ? Becomes red or purple or painful to the touch. ? You are a man and you have a sudden pain in your scrotum, or the size of your scrotum suddenly changes. ? You cannot push the hernia back in place by very gently pressing on it when you are lying down. ? You have nausea or vomiting that does not go away. ? You have a fast heartbeat. ? You cannot have a bowel movement or pass gas. These symptoms may represent a serious problem that is an emergency. Do not wait to see if the symptoms will go away. Get medical help right away. Call your local emergency services (911 in the [place] Summary ? An inguinal hernia develops when fat or the intestines push through a weak spot in a muscle where your leg meets your lower abdomen (groin). ? This condition is caused by having a weak spot in muscles or tissues in your groin. ? Symptoms may depend on the size of the hernia, and they may include pain or swelling in your groin.A small inguinal hernia often has no symptoms. ? Treatment may not be needed if you do not have symptoms. If you have symptoms or a large hernia, you may need surgery to repair the hernia. ? Avoid lifting heavy objects. Also, avoid standing for long periods of time. This information is not intended to replace advice given to you by your health care provider. Make sure you discuss any questions you have with your health care provider. Document Revised: 10/21/2020 Document Reviewed: 10/21/2020 Elsevier Patient Education ?? 2022 [employer] Inc. Patient/Multi Share Program Coordinator Signature Patient Name:MONISHA RODRIGUEZ I have received this information and my questions have been answered. Patient/Multi Share Program Coordinator Name: Patient/Multi Share Program Coordinator Signature: Relationship to Patient: Witness Name/Signature: Date: Electronically Signed on: 11/15/2023 10:54 EDTSigned by:DEVORA Patient Care team information Care Team Personnel Name: Car Boucher MD Position: Physician Member Role: Informed Provider Address: [address] Care Team Related Persons Name: CARROLL RODRIGUEZ Insurance Providers Guarantor name: MONISHA BAESandhya [facility] Information #: 1 Payer: [facility] MEDICAID Member Number: [id number] Policy Number: NA Health Plan Information #: 2 Payer: [facility] MEDICAID Member Number: [id number] Policy Number: NA
--- OUTSIDE RECORDS SUMMARY | 2023-12-26 11:39 | XMS_ITS | Encounter Summary ---
Author Organization [facility] Address [facility] [place] [address] Care Team Providers Care Library Monitor Name Role Phone Tonia Hauser Primary Care Provider [phone] Encounter Details Date Type Department Care Team (Late st Contact Info) Description 12/12/2023 Telephone Gastroenterology at [facility] [place] [address] Macey Toledo, RN Social History Tobacco Use Types Packs/Day Years Used Date Smoking Tobacco: Every Day Cigarettes Smokeless Tobacco: Never Comments:Started smoking at age 18 (1992) DENIES VAPING Alcohol Use Standard Drinks/Week Comments Not Currently 0 (1 standard drink = 0.6 oz pur e alcohol) none since Nov 2022 [facility] Utilities Answer Date Recorded In the past 12 months has e electric, gas, oil, or water company threatened to shut off services in your home? Yes 03/15/2023 Overall Financial Resource Strain (CARDIA) Answe r Date Recorded How hard is it for you to pa y for the very basics like food, housing, medical care, and heating? Hard 03/15/2023 Exercise Vital Sign Answer Date Recorde d On average, how many days pe r week do you engage in moderate to strenuous exercise (like a brisk walk)? 7 days Minutes of Exercise per Session Not on file 03/15/2023 Hunger Vital Sign Answer Date Recorded Within the past 12 months, y ou worried that your food would run out before you got the money to buy more. Never true 03/15/19 24 Within the past 12 months, t he food you bought just didn't last and you didn't have money to get more. Never true 03/15/2023 PRAPARE - Transportation Answer Date Re corded In the past 12 months, has l ack of transportation kept you from medical appointments or from getting medications? No 11/2023 In the past 12 months, has l ack of transportation kept you from meetings, work, or from getting things needed for daily living? No 03/15/2023 Housing Stability Vital Sign Answer Jt e Recorded In the last 12 months, was t here a time when you were not able to pay the mortgage or rent on time? No 03/15/2023 In the last 12 months, how many places have you lived? 1 03/15/2023 In the last 12 months, was t here a time when you did not have a steady place to sleep or slept in a mcfp (including now)? No 03/15/2023 DH IPV Inpatient Questions Answer Date Recorded Does Anyone Try to Keep You From Having Contact with Others or Doing Things Outside Your Home? no 01/11/2023 Feels Threatened by Someone no 09/2022 Feels Unsafe at Home or Work/School no 01/11/2023 Physical Signs of Abuse Present no 01/11/2023 Sex and Gender Information Value Date Recorded Sex Assigned at Male 03/15/2023 10:19 AM EST Gender Identity Male 03/15/2023 10:19 AM EST Sexual Orientation Straight 03/15/2023 10 :19 AM EST documented as of this encounter Miscellaneous Notes * Telephone Encounter - Macey Toledo RN - 12/12/2023 3:14 PM EDT Incoming vmm from pt, inquiring if there are any updates regarding whether ok to proceed with hernia surgery. documented in this encounter Plan of Treatment Upcoming Encounters Date Type Department Care Team (Latest Contact Info) Description 02/01/2024 2:10 PM EST Hospital Encounter [place] [address] Franklin Ramirez MD [address] [place] [address] [place] [address] 02/01/2024 2:10 PM EST - 02/01/2024 4:50 PM EST Surgery [place] [address] Franklin Ramirez MD [address] [place] [address] [place] [address] REPAIR INGUINAL HERNIA, 5 YR OR OLDER, REDUCIBLE (WRVU 7.96) 03/05/2024 11:45 AM EST Office Visit General Surgery at [facility] [address] [place] [address] Franklin Ramirez MD [address] [place] [address] [place] [address] Scheduled Procedures Name Priority Associated Diagnoses Date/Ti vt REPAIR INGUINAL HERNIA, 5 YR OR OLDER, REDUCIBLE (WRVU 7.96) Right inguinal hernia 02/01/2024 2:10 PM EST MODIFIER MESH,BARD FLAT MESH Right inguinal hernia 02/01/2024 2:10 PM EST documented as of this encounter Visit Diagnoses Not on filedocumented in this encounter Care Teams Library Monitor Relationship Specialty Start Date End Date Tonia Hauser PA [address] [place] [address] PCP - General Family Medicine 04/13/23 documented as of this encounter
--- OUTSIDE RECORDS SUMMARY | 2023-12-26 11:39 | XMS_ITS | Encounter Summary ---
Author Organization [place] [address] Care Team Providers Care Education Professor Name Role Phone Tonia Hauser Primary Care Provider [phone] Reason for Referral * Consultation (Routine) - Authorized Specialty Diagnoses / Procedures Referred By Contac t Referred To Contact Endocrinology Diagnoses Low TSH level High serum triiodothyronine (T3) Hyperprolactinemia Tonia Hauser PA [address] [place] [address] [facility] [address] [place] [id number] Referral ID Status Reason Start Date Expiration Date Visits Requested Visits Authorized [id number] Authorized Consult, Test & Treat 12/23/2023 12/22/2024 1 1 Encounter Details Date Type Department Care Team (Latest Contact Info) Description 12/23/2023 9:30 AM EDT TH Visit (TeleHealth) Family Medicine at [facility] [address] [place] [address] Tonia Hauser PA [address] [place] [address] Low TSH level (Primary Dx); High serum triiodothyronine (T3); Hyperprolactinemia Social History Tobacco Use Types Packs/Day Years Used Date Smoking Tobacco: Every Day Cigarettes Smokeless Tobacco: Never Comments:Started smoking at age 18 (1992) DENIES VAPING Alcohol Use Standard Drinks/Week Comments Not Currently 0 (1 standard drink = 0.6 oz pur e alcohol) none since Nov 2022 [facility] Utilities Answer Date Recorded In the past 12 months has th e electric, gas, oil, or water company [...] place to sleep or slept in a mcc (including now)? No 03/15/2023 DH IPV Inpatient [...] AM EST documented as of this encounter Progress Notes * Tonia Hauser PA - 12/23/2023 9:30 AM EDT TELEHEALTH VISIT Patient location: [place] Home address on file: [address] [place] [address] [place] [address] Mode of communication documented under telehealth requirements as appropriate Callback number if video visit: Preferred phone number on file: [phone] LEANNA Sexton is a 48 y.o. male addressed via above noted modality today for: No chief complaint on file. YASIR Schilling is a 48 y.o. male with a history of alcoholism, hepatic cirrhosis presenting today for follow up on labs. Starts PT on . Still having some sore muscles. Does think he is building muscle, just very slowly. Labs done at [facility]. Saw doctor last Tuesday/ for hernia. Surgeon is back-peddling because of the cirrhosis. Said they need to talk to his doctor. Read that if he has steady ascites they don't want to do surgery, but has not had ascites in a few months. ROS See [facility] for details. Patient Active Problem List Diagnosis Code Alcoholic cirrhosis of liver with ascites K70.31 Acute GI bleeding K92.2 Prolonged Q-T interval on ECG R94.31 Hyponatremia E87.1 Cigarette smoker F17.210 End stage liver disease K72.10 *Severe alcohol use disorder F10.20 Current Outpatient Medications on File Prior to Visit Medication Sig Dispense Refill Tab-A-Gonzalez Multivitamin w-iron 15 mg iron- 400 mcg Tablet Take 1 tablet by mouth Daily at Noon. folic acid (Vitamin B9) 1 mg tablet TAKE ONE TABLET BY MOUTH EVERY DAY 90 tablet 3 rifAXIMin (Xifaxan) 550 mg tablet Take 550 mg by mouth daily. furosemide (Lasix) 40 mg tablet TAKE ONE TABLET BY MOUTH EVERY DAY 90 tablet 3 potassium chloride ER (Klor-Con, K-Tab) 10 mEq ER tablet Take 1 tablet by mouth daily. 90 tablet 3 lactulose (Chronulac) 10 gram/15 mL Solution Take 30 mLs by mouth 3 times daily. Titrate to 3-4 bowel movements a day 1892 mL 3 spironolactone (Aldactone) 100 mg tablet Take 1 tablet by mouth daily. 30 tablet 11 No current facility-administered medications on file prior to visit. OBJECTIVE Vital signs not obtained due to visit modality (telehealth) Constitutional: In no acute distress. A&O x 3 Neurological: Voice is clear Psychiatric: Normal mood and affect. Cooperative. No evidence of delusions or hallucinations. ASSESSMENT & PLAN Shakir is a 48 y.o. male with a history of alcoholism, hepatic cirrhosis presenting today for follow up on labs. All orders and diagnoses for this visit are as follows: Diagnoses and all orders for this visit: Low TSH level High serum triiodothyronine (T3) Hyperprolactinemia Persistent issue with lab completion through [facility]. Patient agrees to try completing labs at [facility] which will hopefully give us a clear picture of what may be going on Right now the largest question requiring an answer is: I the elevations in prolactin, FSH, and LH, reactionary to thyroid dysfunction or are they reflective of something like a pituitary adenoma, andthe thyroid dysfunction is in reaction to pituitary dysfunction? He agrees to try getting repeat labs so that we may seek further clarification on this. Ideally, wewould order TRAb testing, but this does not appear to be in our system as an order. He agrees to the contingency plan as follows: Scenario 1: Additional labs are completed and the abnormalities persist, as well as the finding of an elevated TSI This would more strongly indicate to me that the abnormalities are primarily stemming from thyroid dysfunction We would move forward with a trial of low-dose methimazole with repeat labs 1 to 2 weeks after initiation while waiting to see endocrinology Would also recommend thyroid ultrasound but can hold off on iodine uptake test until patient sees endocrine Scenario 2: Repeat labs are performed and there is no additional evidence suggesting this is autoimmune in nature and stemming from primary thyroid dysfunction Would increase concern for the possibility of a pituitary adenoma being the primary cause of all abnormalities Plan to order MRI brain with and without contrast to assess for this Depending on where his values are on the repeat labs, we could also consider ordering the imaging while moving forward with a trial of the methimazole and repeating labs on the timeline discussed above. If we were beginning to see improvement in all values with initiation of the methimazole, this would lower suspicion for pituitary adenoma and raise suspicion for primary thyroid dysfunction. We can wait until results are back to make this decision I had also Econsulted endocrinology and they may respond with advice before results return I will also refer formally to endocrinology with the patient's consent For phone visit: patient verbally consented to this telephone visit and understands that this visitmay be billed, similar to a clinic office visit. I provided care to the patient today via telephonecall, total time of call documented elsewhere in encounter under telehealth visit requirements. Total time on date of encounter was 40 minutes including the any of the following activities as necessary for completion of the visit: Preparing to see pt, review of tests Obtaining and/or reviewing separately obtained history (eg, outside records, caregiver) Counseling and educating the patient/family/caregiver Referring and communicating with other health healthcare risk control consultant Documenting clinical information in the electronic or other health record Independently interpreting results Care coordination ROSALES Mckeon 10:30 AM 12/23/2023 documented in this encounter Plan of Treatment Upcoming Encounters Date Type Department Care Team (Latest Contact Info) Description 02/01/2024 2:10 PM EST Hospital Encounter [place] [address] Franklin Ramirez MD [address] [place] [address] [place] [address] 02/01/2024 2:10 PM EST - 02/01/2024 4:50 PM EST Surgery [place] [address] Franklin Ramirez MD [address] [place] [address] [place] [address] REPAIR INGUINAL HERNIA, 5 YR OR OLDER, REDUCIBLE (WRVU 7.96) 03/05/2024 11:45 AM EST Office Visit General Surgery at [address] [address] Franklin Ramirez MD [address] [place] [address] [place] [address] Scheduled Orders Name Type Priority Associated Diagnoses Orde r Schedule Thyroid Stimulating Immunoglobulins Lab Routine Low TSH level High serum triiodothyronine (T3) Hyperprolactinemia Expected: 12/23/2023, Expires: 06/23/2024 Thyroglobulin Antibody Lab Routine Low TSH level High serum triiodothyronine (T3) Hyperprolactinemia Expected: 12/23/2023, Expires: 06/23/2024 TSH Lab Routine Low TSH level High serum triiodothyronine (T3) Hyperprolactinemia Expected: 12/23/2023 (Approximate), Expires: 03/24/2024 T3 Total Lab Routine Low TSH level High serum triiodothyronine (T3) Hyperprolactinemia Expected: 12/23/2023 (Approximate), Expires: 03/24/2024 T3, free Lab Routine Low TSH level High serum triiodothyronine (T3) Hyperprolactinemia Expected: 12/23/2023, Expires: 03/24/2024 T4, free Lab Routine Low TSH level High serum triiodothyronine (T3) Hyperprolactinemia Expected: 12/23/2023 (Approximate), Expires: 03/24/2024 T4, free Lab Routine Low TSH level High serum triiodothyronine (T3) Hyperprolactinemia Expected: 12/23/2023, Expires: 03/24/2024 Prolactin Lab Routine Low TSH level High serum triiodothyronine (T3) Hyperprolactinemia Expected: 12/23/2023, Expires: 03/24/2024 Follicle Stimulating Hormone Lab Routine Low TSH level High serum triiodothyronine (T3) Hyperprolactinemia Expected: 12/23/2023, Expires: 03/24/2024 Luteinizing Hormone Lab Routine Low TSH level High serum triiodothyronine (T3) Hyperprolactinemia Expected: 12/23/2023, Expires: 06/23/2024 Scheduled Procedures Name Priority Associated Diagnoses Date/Ti me REPAIR INGUINAL HERNIA, 5 YR OR OLDER, REDUCIBLE (WRVU 7.96) Right inguinal hernia 02/01/2024 2:10 PM EST MODIFIER MESH,BARD FLAT MESH Right inguinal hernia 02/01/2024 2:10 PM EST Scheduled Referrals Name Type Priority Associated Diagnoses Orde r Schedule Referral to Endocrinology Outpatient Referral Urgent Low TSH level High serum triiodothyronine (T3) Hyperprolactinemia Ordered: 12/23/2023 documented as of this encounter Visit Diagnoses Diagnosis Low TSH level- Primary Nonspecific abnormal results of thyroid function study High serum triiodothyronine (T3) Hyperprolactinemia Other and unspecified anterior pituitary hyperfunction Right inguinal hernia Inguinal hernia without mention of obstruction or gangrene, unilateral or unspecified, (not specified as recurrent) documented in this encounter Care Teams Education Professor Relationship Specialty Start Date End Date Tonia Hauser PA [address] [place] [address] PCP - General Family Medicine 04/13/23 documented as of this encounter
--- OUTSIDE RECORDS SUMMARY | 2023-12-26 11:39 | XMS_ITS | Encounter Summary ---
Author Organization [facility], [facility] [place] [address] Care Team Providers Care Progress Developer Name Role Phone Tonia Hauser Primary Care Provider [phone] Reason for Visit * Reason Comments Follow-up Encounter Details Date Type Department Care Team (Latest Contact Info) Description 12/12/2023 9:30 AM EDT TH Visit (TeleHealth) Family Medicine at [address] [place] [phone] Tonia Hauser PA [address] [place] [place] [address] Low TSH level (Primary Dx); Healthcare maintenance Social History Tobacco Use Types Packs/Day Years Used Date Smoking Tobacco: Every Day Cigarettes Smokeless Tobacco: Never Comments:Started smoking at age 18 (1992) DENIES VAPING Alcohol Use Standard Drinks/Week Comments Not Currently 0 (1 standard drink = 0.6 oz pur e alcohol) none since Nov 2022 [facility] Utilities Answer Date Recorded In the past 12 months has e [employer], gas, oil, or water [id number] threatened to shut off services in your [...] place to sleep or slept in a usp (including now)? No 03/15/2023 DH IPV Inpatient [...] Progress Notes * Tonia Hauser PA - 12/12/2023 9:30 AM EDT TELEHEALTH VISIT Patient location: [place] Home address on file: [facility] [place] [address] Mode of communication documented under telehealth requirements as appropriate Callback number if video visit: Preferred phone number on file: [phone] LEANNA Sexton is a 48 y.o. male addressed via above noted modality today for: Chief Complaint Patient presents with Follow-up HPI Shakir is a 48 y.o. male with a history of alcoholism, hepatic cirrhosis presenting today for follow up on labs. Starts PT on . Still having some sore muscles. Does think he is building muscle, just very slowly. Labs done at [facility]. Saw doctor last Tuesday/ for hernia. Surgeon is back-peddling because of the cirrhosis. Said they need to talk to his doctor. Read that if he has steady ascites they don't want to do surgery, but has not had ascites in a few months. ROS See HPI for details. Patient Active Problem List Diagnosis [...] diagnoses for this visit are as follows: Shakir was seen today for follow-up . Diagnoses and all orders for this visit: Low TSH level - T4, free; Future - T4 Total; Future - T3 Total; Future - T3, free; Future - TSH; Future - Thyroid Stimulating Immunoglobulins; Future - Thyroglobulin Antibody; Future Healthcare maintenance - Lipid Panel (Reflex Direct LDL); Future Discussed results. Lab did not perform TSH cascade, just TSH Need additional labs to assess thyroid function; may account for LH, FSH, and prolactin abnormalities Will get labs done soon Discussed management including medication (methimazole) with repeat labs 3-4 weeks after initiation, and endocrinology referral More specific f/u pending results Hernia and ascites: reports no ascites within the past few months and a recent MELD score of 9 - probably okay to move forward with surgery; recommend the surgeons speak with GI specialist regarding their concerns; happy to help in any way I can otherwise For phone visit: patient verbally consented to this telephone visit and understands that this visitmay be billed, similar to a clinic office visit. I provided care to the patient today via telephonecall, total time of call documented elsewhere in encounter under telehealth visit requirements. Total time on date of encounter was 30 minutes including the any of the following activities as necessary for completion of the visit: Preparing to see pt, review of tests Obtaining and/or reviewing separately obtained history (eg, outside records, caregiver) Counseling and educating the patient/family/caregiver Referring and communicating with other health home care music therapist Documenting clinical information in the electronic or other health record Independently interpreting results Care coordination ROSALES Mckeon 9:51 AM 12/12/2023 documented in this encounter Plan of Treatment Upcoming Encounters Date Type Department Care Team (Latest Contact Info) Description 02/01/2024 2:10 PM EST Hospital Encounter [place] [address] Franklin Ramirez MD [address] [place] [address] [place] [address] 02/01/2024 2:10 PM EST - 02/01/2024 4:50 PM EST Surgery [place] [address] Franklin Ramirez MD [address] [place] [address] [place] [address] REPAIR INGUINAL HERNIA, 5 YR OR OLDER, REDUCIBLE (WRVU 7.96) 03/05/2024 11:45 AM EST Office Visit General Surgery at [facility] [address] [phone] Franklin Ramirez MD [address] [place] [address] [place] [address] Scheduled Orders Name Type Priority Associated Diagnoses Orde r Schedule Thyroid Stimulating Immunoglobulins Lab Routine Low TSH level Expected: 12/12/2023, Expires: 06/12/2024 Scheduled Procedures Name Priority Associated Diagnoses Date/Ti me REPAIR INGUINAL HERNIA, 5 YR OR OLDER, REDUCIBLE (WRVU 7.96) Right inguinal hernia 02/01/2024 2:10 PM EST MODIFIER MESH,BARD FLAT MESH Right inguinal hernia 02/01/2024 2:10 PM EST documented as of this encounter Results * (ABNORMAL) Lipid Panel (Reflex Direct LDL) (12/12/2023 12:47 PM EDT) Cholesterol, Total - External 142 EXTERNAL FACILITY Triglycerides - External 54 [facility] FACILITY HDL - External 61(H) EXTER NAL FACILITY LDL Cholesterol - External 70 EXTERNAL FACILITY Blood VENOUS BLOOD SPECIMEN / Unknown 12/12/2023 12:47 PM EDT Aydee Lemons MD CHEMISTRY ORDERABLE S EXTERNAL FACILITY * Thyroglobulin Antibody (12/12/2023 12:47 PM EDT) Thyroglob Ab - External <15 EXTERNAL FACILITY Blood VENOUS BLOOD SPECIMEN / Unknown 12/12/2023 12:47 PM EDT Aydee Lemons MD LAB SEND OUT ORDERA BLES EXTERNAL FACILITY * (ABNORMAL) TSH (12/12/2023 12:47 PM EDT) TSH - External 0.069(L) EXTER NAL FACILITY Blood VENOUS BLOOD SPECIMEN / Unknown 12/12/2023 12:47 PM EDT Aydee Lemons MD CHEMISTRY ORDERABLE S Performing Organization Address [facility] Co de Phone Number EXTERNAL FACILITY * T3, free (12/12/2023 12:47 PM EDT) T3, Free - External 5.2 EXTERNAL FACILITY Blood VENOUS BLOOD SPECIMEN / Unknown 12/12/2023 12:47 PM EDT Aydee Lemons MD CHEMISTRY ORDERABLE S Performing Organization Address [facility] Co de Phone Number EXTERNAL FACILITY * (ABNORMAL) T3 Total (12/12/2023 12:47 PM EDT) T3, Total - External 175(H) EXTERNAL FACILITY Blood VENOUS BLOOD SPECIMEN / Unknown 12/12/2023 12:47 PM EDT Aydee Lemons MD CHEMISTRY ORDERABLE S Performing Organization Address [facility] Co de Phone Number EXTERNAL FACILITY * T4 Total (12/12/2023 12:47 PM EDT) [facility] Result - External See Scanned Results EXTERNAL FACILITY Comment:T4 total - 10.6 (nor mal) Blood VENOUS BLOOD SPECIMEN / Unknown 12/12/2023 12:47 PM EDT Aydee Lemons MD CHEMISTRY ORDERABLE S Performing Organization Address [facility] Co de Phone Number EXTERNAL FACILITY * T4, free (12/12/2023 12:47 PM EDT) Free T4 - External 1.16 EXTERNAL FACILITY Blood VENOUS BLOOD SPECIMEN / Unknown 12/12/2023 12:47 PM EDT Aydee Lemons MD CHEMISTRY ORDERABLE S EXTERNAL FACILITY documented in this encounter Visit Diagnoses Diagnosis Low TSH level- Primary Nonspecific abnormal results of thyroid function study Healthcare maintenance Routine general medical examination at a health care facility Right inguinal hernia Inguinal hernia without mention of obstruction or gangrene, unilateral or unspecified, (not specified as recurrent) documented in this encounter Care Teams Progress Developer Relationship Specialty Start Date End Date Tonia Hauser PA [address] [place] [place] [address] PCP - General Family Medicine 04/13/23 documented as of this encounter
--- OUTSIDE RECORDS SUMMARY | 2023-12-26 11:39 | XMS_ITS | Encounter Summary ---
Author Organization [facility] Address [facility] [place] [address] Care Team Providers Care Railroad Shop Inspector Name Role Phone Tonia Hauser Primary Care Provider [phone] Encounter Details Date Type Department Care Team (Late Contact Info) Description 12/23/2023 E-Consult Endocrinology at [facility] [address] [place] [address] Valarie Cardoza MD [address] [place] [address] Hyperthyroidism Social History Tobacco Use Types Packs/Day Years Used Date Smoking Tobacco: Every Day Cigarettes Smokeless Tobacco: Never Comments:Started smoking at age 18 (1992) DENIES VAPING Alcohol Use Standard Drinks/Week Comments Not Currently 0 (1 standard drink = 0.6 oz pur e alcohol) none since Nov 2022 [facility] Utilities Answer Date Recorded In the past 12 months has [employer], gas, oil, or water [employer] threatened to shut off services in your [...] place to sleep or slept in a chcf (including now)? No 03/15/2023 DH IPV Inpatient [...] as of this encounter Miscellaneous Notes * E-Consult - Valarie Cardoza MD - 12/23/2023 10:32 AM EDT Select F2 to choose the appropriate response: Proceed with eConsult 1. Restatement of the question: 48 year old with alcohol abuse, residing at facility with suppressed TSH and high T3. 2. Recommendation(s): The patient has thyrotoxicosis with differential including Graves' disease, toxic nodule. T3 toxicosis can occur due to early Graves' disease or toxic nodule. I agree with referral to endocrinology at this time. I agree with obtaining further testing including TSI to rule out Graves' disease. In the meantime, I recommend a thyroid ultrasound to understand if any underlying nodules, as patient may require a thyroid uptake and scan if the TSI is negative. In the meantime, I would suggest using a beta renu such as propranolol if needed for tachycardia, and referral to our specialty for further testing. Please trend the labs for TSH, Free T4 and Total T3 in 4-6 weeks. I would not recommend a brain MRI at this time. 3. Rationale and/or evidence for recommendation: clinical practice 4. Contingency plan: referral This eConsult is focused on the specific clinical question(s) asked by the referring clinician, is based on the clinical data available to me, the consulting physician, at the time of the request, and is furnished without benefit of a comprehensive evaluation or physical examination of the patient by me. The guidance set forth in the eConsult note will need to be interpreted in light of any clinical issues not known to me or any changes in patient status that I may not be aware of at the time of filing this eConsult. If further consultation is necessary, an in-person visit with me or another member of our group is an option. documented in this encounter Plan of Treatment Upcoming Encounters Date Type Department Care Team (Latest Contact Info) Description 02/01/2024 2:10 PM EST Hospital Encounter [place] [address] Franklin Ramirez MD [address] [place] [address] [place] [address] 02/01/2024 2:10 PM EST - 02/01/2024 4:50 PM EST Surgery [place] [address] Franklin Ramirez MD [address] [place] [address] [place] [address] REPAIR INGUINAL HERNIA, 5 YR OR OLDER, REDUCIBLE (WRVU 7.96) 03/05/2024 11:45 AM EST Office Visit General Surgery at [facility] [address] [place] [phone] Franklin Ramirez MD [address] [place] [address] [place] [address] Scheduled Procedures Name Priority Associated Diagnoses Date/Ti me REPAIR INGUINAL HERNIA, 5 YR OR OLDER, REDUCIBLE (WRVU 7.96) Right inguinal hernia 02/01/2024 2:10 PM EST MODIFIER MESH,BARD FLAT MESH Right inguinal hernia 02/01/2024 2:10 PM EST documented as of this encounter Visit Diagnoses Diagnosis Hyperthyroidism Thyrotoxicosis without mention of goiter or other cause, without mention of thyrotoxic crisis or storm Right inguinal hernia Inguinal hernia without mention of obstruction or gangrene, unilateral or unspecified, (not specified as recurrent) documented in this encounter Care Teams Railroad Shop Inspector Relationship Specialty Start Date End Date Tonia Hauser PA [address] [place] [address] PCP - General Family Medicine 04/13/23 documented as of this encounter
--- OUTSIDE RECORDS SUMMARY | 2023-12-26 11:39 | XMS_ITS | Encounter Summary ---
Author Organization Count Includes [facility] Address [facility] [place] [address] Care Team Providers Care Rn First Assistant Name Role Phone Tonia Hauser Primary Care Provider [phone] Encounter Details Date Type Department Care Team (Late st Contact Info) Description 11/29/2023 External Results Family Medicine at [facility] [address] [place] [phone] Nena Pisano, DENTAL LABORATORY TECHNOLOGY TEACHER Hyperprolactinemia Social History Tobacco Use Types Packs/Day Years Used Date Smoking Tobacco: Every Day Cigarettes Smokeless Tobacco: Never Comments:Started smoking at age 18 (1992) DENIES VAPING Alcohol Use Standard Drinks/Week Comments Not Currently 0 (1 standard drink = 0.6 oz pur e alcohol) none since Nov 2022 [facility] Utilities Answer Date Recorded In the [...] place to sleep or slept in a longterm (including now)? No 03/15/2023 DH IPV Inpatient [...] AM EST documented as of this encounter Plan of Treatment Upcoming Encounters Date Type Department Care Team (Latest Contact Info) Description 02/01/2024 2:10 PM EST Hospital Encounter [place] [address] Franklin Ramirez MD [address] [place] [address] [place] [address] 02/01/2024 2:10 PM EST - 02/01/2024 4:50 PM EST Surgery [place] [phone] Franklin Ramirez MD [address] [place] [address] [place] [address] REPAIR INGUINAL HERNIA, 5 YR OR OLDER, REDUCIBLE (WRVU 7.96) 03/05/2024 11:45 AM EST Office Visit General Surgery at [facility] [address] [place] [phone] Franklin Ramirez MD [address] [place] [address] [place] [address] Scheduled Procedures Name Priority Associated Diagnoses Date/Ti ma REPAIR INGUINAL HERNIA, 5 YR OR OLDER, REDUCIBLE (WRVU 7.96) Right inguinal hernia 02/01/2024 2:10 PM EST MODIFIER MESH,BARD FLAT MESH Right inguinal hernia 02/01/2024 2:10 PM EST documented as of this encounter Procedures Procedure Name Priority Date/Time Associated Diagnosis Comments TSH CASCADE Routine 11/28/2023 11:11 AM EDT Hyperprolactinemia CRP, ACUTE INFLAMMATION Routine 11/28/2023 11:11 AM EDT Hyperprolactinemia LACTATE, WHOLE BLOOD Routine 11/28/2023 11:11 AM EDT Hyperprolactinemia PROLACTIN Routine 11/28/2023 11:11 AM EDT Hyperprolactinemia SEDIMENTATION RATE Routine 11/28/2023 11 :11 AM EDT Hyperprolactinemia URIC ACID Routine 11/28/2023 11:11 AM EDT Hyperprolactinemia TESTOSTERONE, TOTAL Routine 11/28/2023 1 1:11 AM EDT Hyperprolactinemia LUTEINIZING HORMONE Routine 11/28/2023 1 1:11 AM EDT Hyperprolactinemia FOLLICLE STIMULATING HORMONE Routine 11/28/2023 11:11 AM EDT Hyperprolactinemia documented in this encounter Results * Prolactin (11/28/2023 11:11 AM EDT) [facility] Lab Result - External See Scanned Results EXTERNAL FACILITY Comment:Prolactin - 9.6 Blood VENOUS BLOOD SPECIMEN / Unknown 11/28/2023 11:11 AM EDT Aydee Lemons MD CHEMISTRY ORDERABLE S EXTERNAL FACILITY * Testosterone, total (11/28/2023 11:11 AM EDT) [facility] Testo Total - External 601 EXTERNAL FACILITY Blood VENOUS BLOOD SPECIMEN / Unknown 11/28/2023 11:11 AM EDT Aydee Lemons MD CHEMISTRY ORDERABLE S Performing Organization Address [facility] Co de Phone Number EXTERNAL FACILITY * (ABNORMAL) Luteinizing Hormone (11/28/2023 11:11 AM EDT) [facility] LH - External 12.6(H) ESCALATOR CONSTRUCTOR AL FACILITY Blood VENOUS BLOOD SPECIMEN / Unknown 11/28/2023 11:11 AM EDT Aydee Lemons MD CHEMISTRY ORDERABLE S Performing Organization Address [facility]/ZIP Co de Phone Number EXTERNAL FACILITY * (ABNORMAL) Follicle Stimulating Hormone (11/28/2023 11:11 AM EDT) [facility] FSH - External 31.2(H) EXTER NAL FACILITY Blood VENOUS BLOOD SPECIMEN / Unknown 11/28/2023 11:11 AM EDT Aydee Lemons MD CHEMISTRY ORDERABLE S EXTERNAL FACILITY * (ABNORMAL) TSH [place] (11/28/2023 11:11 AM EDT) [facility] Result - External See Scanned Results EXTERNAL FACILITY Comment:T4 Free - 1.29 TSH - External 0.135(L) EXTER NAL FACILITY Blood VENOUS BLOOD SPECIMEN / Unknown 11/28/2023 11:11 AM EDT Aydee Lemons MD CHEMISTRY ORDERABLE S Performing Organization Address [facility] de Phone Number EXTERNAL FACILITY * CRP, acute inflammation (11/28/2023 11:11 AM EDT) CRP - External 1.3 EXTER NAL FACILITY Blood VENOUS BLOOD SPECIMEN / Unknown 11/28/2023 11:11 AM EDT Aydee Lemons MD CHEMISTRY ORDERABLE S Performing Organization Address [facility] Co de Phone Number EXTERNAL FACILITY * Uric acid (11/28/2023 11:11 AM EDT) Uric Acid - External 4.5 EXTERNAL FACILITY Blood VENOUS BLOOD SPECIMEN / Unknown 11/28/2023 11:11 AM EDT Aydee Lemons MD CHEMISTRY ORDERABLE S Performing Organization Address [facility] de Phone Number EXTERNAL FACILITY * Sedimentation rate (11/28/2023 11:11 AM EDT) Sed Rate - External 11 EXTERNAL FACILITY Blood VENOUS BLOOD SPECIMEN / Unknown 11/28/2023 11:11 AM EDT Aydee Lemons MD HEMATOLOGY ORDERABL ES Performing Organization Address [facility] Co de Phone Number EXTERNAL FACILITY * Lactate, Whole Blood (11/28/2023 11:11 AM EDT) Misc Lab Result - External See Scanned Results EXTERNAL FACILITY Comment:Lactic Acid Lvl - 1. 2 Blood VENOUS BLOOD SPECIMEN / Unknown 11/28/2023 11:11 AM EDT Aydee Lemons MD CHEMISTRY ORDERABLE S Performing Organization Address [facility] Co de Phone Number EXTERNAL FACILITY documented in this encounter Visit Diagnoses Diagnosis Hyperprolactinemia Other and unspecified anterior pituitary hyperfunction Right inguinal hernia Inguinal hernia without mention of obstruction or gangrene, unilateral or unspecified, (not specified as recurrent) documented in this encounter Care Teams Rn First Assistant Relationship Specialty Start Date End Date Tonia Hauser PA [address] [place] [address] PCP - General Family Medicine 04/13/23 documented as of this encounter
--- OUTSIDE RECORDS SUMMARY | 2023-12-26 11:39 | XMS_ITS | Encounter Summary ---
Author Organization [facility] Address [facility] [place] [address] Care Team Providers Care Legal Support Manager Name Role Phone Tonia Hauser Primary Care Provider [phone] Encounter Details Date Type Department Care Team (Latest Contact Info) Description 12/06/2023 Travel Social History Tobacco Use Types Packs/Day Years Used Date Smoking Tobacco: Every Day Cigarettes Smokeless Tobacco: Never Comments:Started smoking at age 18 (1992) DENIES VAPING Alcohol Use Standard Drinks/Week Comments Not Currently 0 (1 standard drink = 0.6 oz pur e alcohol) none since Nov [address] [facility] Utilities Answer Date Recorded In the past 12 months has [employer], gas, oil, or water company threatened [...] place to sleep or slept in a skilled nursing (including now)? No 03/15/2023 DH IPV Inpatient [...] PM EST Hospital Encounter [place] [address] Franklin Ramirez MD [address] [place] [address] [place] [address] 02/01/2024 2:10 PM EST - 02/01/2024 4:50 PM EST Surgery [place] [phone] Franklin Ramirez MD [address] [place] [address] [place] [address] REPAIR INGUINAL HERNIA, 5 YR OR OLDER, REDUCIBLE (WRVU 7.96) 03/05/2024 11:45 AM EST Office Visit General Surgery at [facility] [address] [place] [phone] Franklin Ramirez MD [address] [place] [address] [place] [address] Scheduled Procedures Name Priority Associated Diagnoses Date/Ti me REPAIR INGUINAL HERNIA, 5 YR OR OLDER, REDUCIBLE (WRVU 7.96) Right inguinal hernia 02/01/2024 2:10 PM EST MODIFIER MESH,BARD FLAT MESH Right inguinal hernia 02/01/2024 2:10 PM EST documented as of this encounter Visit Diagnoses Not on filedocumented in this encounter Care Teams Legal Support Manager Relationship Specialty Start Date End Date Tonia Hauser PA [address] [place] [address] PCP - General Family Medicine 04/13/23 documented as of this encounter
--- OUTSIDE RECORDS SUMMARY | 2023-12-26 11:39 | XMS_ITS | Encounter Summary ---
Author Organization [facility] [place] [address] Care Team Providers Care Construction Worker Name Role Phone Tonia Hauser Primary Care Provider [phone] Reason for Visit * Reason Comments Inguinal Hernia * Surgical (Routine) - Authorized Specialty Diagnoses / Procedures Referred By Renata santos Referred To Contact General Surgery Diagnoses Non-recurrent unilateral inguinal hernia without obstruction or gangrene Eduar Newsome PA [facility] [address] [facility] [address] [facility] [address] [address] Referral ID Status Reason Start Date Expiration Date Visits Requested Visits Authorized [id number] Authorized Consult, Test & Treat 11/17/2023 11/16/2024 12 12 Encounter Details Date Type Department Care Team (Late Contact Info) Description 12/07/2023 1:45 PM EDT Office [place] [address] Franklin Ramirez MD [address] [place] [address] [place] [address] Right inguinal hernia Social History Tobacco Use Types Packs/Day Years Used Date Smoking Tobacco: Every Day Cigarettes Smokeless Tobacco: Never Tobacco Cessation:Ready to Q uit: Not Asked; Counseling Given: Not Answered Comments:Started smoking at age 18 (1992) DENIES VAPING Alcohol Use Standard Drinks/Week Comments Not Currently 0 (1 standard drink = 0.6 oz pur e alcohol) none since Nov 2022 [facility] Utilities Answer Date Recorded In the [...] place to sleep or slept in a alf (including now)? No 03/15/2023 DH IPV Inpatient [...] AM EST documented as of this encounter Last Filed Vital Signs Vital Sign Reading Time Taken Comments Blood Pressure 106/61 12/07/2023 1:14 PM EDT Pulse 86 12/07/2023 1:14 PM EDT Temperature - - Respiratory Rate 16 12/07/2023 1:14 PM EDT Oxygen Saturation 99% 12/07/2023 1:14 PM EDT Inhaled Oxygen Concentration - - Weight 74.6 kg (164 lb 6.4 oz) 12/07/2023 1:14 P M EDT Height 175.3 cm (5' 9.02) 12/07/2023 1:14 PM ED T Body Mass Index 24.27 12/07/2023 1:14 PM EDT documented in this encounter Progress Notes * Chivo Vaughan MD - 12/07/2023 1:45 PM EDT HPI: The pt was referred from Eduar Newsome for evaluation of a symptomatic inguinal hernia. Shakir is a 48-year-old male with a past medical history most significant for cirrhosis complicatedby portal hypertension and variceal bleed presenting for evaluation of a right inguinal hernia. Shakir developed a bulge in his right groin 2 months ago. He does not recall an inciting event. He is able to reduce the bulge and it is not painful, although it is somewhat uncomfortable. He has never had any obstructive symptoms. He does not have any bulges in the left groin. Shakir was admitted [facility] [place] times last year in the setting of decompensated cirrhosis and upper GI bleed managed with blood transfusion and EGD. He currently follows with gastroenterology herejoshua is on Lasix and Aldactone for management of his ascites and lactulose for prevention of hepatic encephalopathy. His last MELD scored as of 11/08 was 9. On most recent abdominal ultrasound (11/08) there was no ascites. He has required multiple paracentesis in the past but none recently. His last drink was 11/23/2022. He is a current smoker with a 32-[id number]-ivpq history. Past Medical History: Cirrhosis complicated by portal hypertension and varices UGIB Alcohol use disorder Tobacco use Past Surgical History: Past Surgical History: Procedure Laterality Date PRO COLONOSCOPY FLEXIBLE W ABLATION TUMOR POLYP/OTHER LESION N/A 05/16/2023 COLONOSCOPY; W ABLATION TUMOR/POLYP/LESION (WRVU 4.88) performed by Luis Antonio Mendoza MD at [facility] ENDOSCOPY PRO UPPER GI ENDOSCOPY, BIOPSY N/A 05/16/2023 EGD WITH BIOPSY (WRVU 2.39) performed by Luis Antonio Mendoza MD at [facility] ENDOSCOPY PRO UPPER GI ENDOSCOPY, DIAGNOSTIC N/A 01/11/2023 EGD, UPPER GI ENDOSCOPY (WRVU 2.09) performed by Rehan Matta MD at [facility] ENDOSCOPY Medications: Furosemide Spironolactone folic acid Lactulose Multivitamin, potassium chloride Allergies:No Known Allergies Family History: No family history on file. Social History: Social History Socioeconomic History Marital status: Single Spouse name: Not on file Number of children: Not on file Years of education: Not on file Highest education level: Not on file Occupational History Not on file Tobacco Use Smoking status: Every Day Current packs/day: 1.00 Types: Cigarettes Smokeless tobacco: Never Tobacco comments: Started smoking at age 18 (1992) DENIES VAPING Vaping Use Vaping status: Never Used Substance and Sexual Activity Alcohol use: Not Currently Comment: none since Nov 2022 Drug use: Yes Types: Marijuana Comment: multiple times daily Sexual activity: Yes Partners: Female Comment: with girlfriend Other Topics Concern Not on file Social History Narrative Work: currently not working Transportation: has personal vehicle (car) Lives: with GF Social Determinants of Health Financial Resource Strain: High Risk (03/15/2023) Overall Financial Resource Strain (CARDIA) Difficulty of Paying Living Expenses: Hard Food Insecurity: No Food Insecurity (03/15/2023) Hunger Vital Sign Worried About Running Out of Food in the Last Year: Never true Ran Out of Food in the Last Year: Never true Transportation Needs: No Transportation Needs (03/15/2023) PRAPARE - Transportation Lack of Transportation (Medical): No Lack of Transportation (Non-Medical): No Physical Activity: Unknown (03/15/2023) Exercise Vital Sign Days of Exercise per Week: 7 days Minutes of Exercise per Session: Not on file Intimate Partner Violence: Not At Risk (01/11/2023) IPV Inpatient Questions Prevent Contact with Others: no Feels Threatened by Someone: no Feels Unsafe at Home: no Physical Signs of Abuse Present: no Housing Stability: Low Risk (03/15/2023) Housing Stability Vital Sign Unable to Pay for Housing in the Last Year: No Number of Places Lived in the Last Year: 1 Unstable Housing in the Last Year: No Physical Examination: Patient Vitals for the past 24 hrs: Pulse Resp BP SpO2 12/07/23 1314 86 16 106/61 99 % Body mass index is 24.27 kg/m??. Heart: Regular rate Lungs: Breathing comfortably on RA Abdomen: soft, non tender. There is a reducible right inguinal hernia. The left inguinal canal is normal. Testicular exam: normal, no masses or tenderness. Assessment: Shakir is a 48 year old male with alcoholic cirrhosis and a mildly symptomatic right inguinal. Shakir has increased risk for any surgical procedure due to his cirrhosis. By chart review he does seem to be medically optimized with a MELD of 9 and recent US without any appreciable ascites. We had a long conversation with Shakir regarding his increased surgical risk, how the stress of surgery can cause decompensation and that organ failure and even are possible. Currently, he is only mildly symptomatic, however it is preferable to repair this hernias in an elective rather than emergent setting. We will touch base with his GI team to see if he is an appropriate candidate and if he is in fact medically optimized prior to making any definitive decision. Plan: -Discuss medical optimization with GI team -Operative decision making pending General Surgery Attending Addendum: I examined the patient with Dr. Vaughan and reviewed the patient's history and CT scan as above. The risks and benefits of the procedure were explained and all questions were answered. He is at increased risk due to cirrhosis but is compensated since quiting drinking. I agree with the assessment and plan. Franklin Ramirez M.D., FACS documented in this encounter Plan of Treatment Upcoming Encounters Date Type Department Care Team (Latest Contact Info) Description 02/01/2024 2:10 PM [facility] Hospital Encounter Main [place] [address] Franklin Ramirez MD [address] [place] [address] [place] [address] 02/01/2024 2:10 PM EST - 02/01/2024 4:50 PM EST Surgery [place] [address] Franklin Ramirez MD [address] [place] [address] [place] [address] REPAIR INGUINAL HERNIA, 5 YR OR OLDER, REDUCIBLE (WRVU 7.96) 03/05/2024 11:45 AM EST Office Visit General Surgery at [address] [phone] Franklin Ramirez MD [address] [place] [address] [place] [address] Scheduled Orders Name Type Priority Associated Diagnoses Orde r Schedule SURGICAL CASE REQUEST: REPAIR INGUINAL HERNIA, 5 YR OR OLDER, REDUCIBLE (WRVU 7.96) Procedures Routine Right inguinal hernia Ordered: 12/14/2023 Scheduled Procedures Name Priority Associated Diagnoses Date/Ti nv REPAIR INGUINAL HERNIA, 5 YR OR OLDER, REDUCIBLE (WRVU 7.96) Right inguinal hernia 02/01/2024 2:10 PM EST MODIFIER MESH,BARD FLAT MESH Right inguinal hernia 02/01/2024 2:10 PM EST documented as of this encounter Visit Diagnoses Diagnosis Right inguinal hernia Inguinal hernia without mention of obstruction or gangrene, unilateral or unspecified, (not specified as recurrent) Right inguinal hernia Inguinal hernia without mention of obstruction or gangrene, unilateral or unspecified, (not specified as recurrent) documented in this encounter Care Teams Construction Worker Relationship Specialty Start Date End Date Tonia Hauser PA [address] [place] [address] PCP - General Family Medicine 04/13/23 documented as of this encounter
--- OUTSIDE RECORDS SUMMARY | 2023-12-26 11:39 | XMS_ITS | Encounter Summary ---
Author Organization Pending Sale To [facility] [place] [address] Care Team Providers Care Retail Management Trainee Name Role Phone Tonia Hauser Primary Care Provider [phone] Encounter Details Date Type Department Care Team (Late st Contact Info) Description 11/13/2023 Orders Only Family Medicine at [address] [place] [phone] Tonia Hauser PA [address] [facility] [place] [address] Hyperprolactinemia Social History Tobacco Use Types Packs/Day Years Used Date Smoking Tobacco: Every Day Cigarettes Smokeless Tobacco: Never Comments:Started smoking at age 18 (1992) DENIES VAPING Alcohol Use Standard Drinks/Week Comments Not Currently 0 (1 standard drink = 0.6 oz pur e alcohol) none since Nov 2022 [facility] Utilities Answer Date Recorded In the past 12 months has [employer], gas, oil, or water [employer] threatened to shut off services in your [...] place to sleep or slept in a long-term (including now)? No 03/15/2023 DH IPV Inpatient [...] PM EST Hospital Encounter [place] [address] Franklin Ramirez MD [address] [place] [address] [place] [address] 02/01/2024 2:10 PM EST - 02/01/2024 4:50 PM EST Surgery [place] [address] Franklin Ramirez MD [address] [place] [address] [place] [address] REPAIR INGUINAL HERNIA, 5 YR OR OLDER, REDUCIBLE (WRVU 7.96) 03/05/2024 11:45 AM EST Office Visit General Surgery at [facility] [address] [phone] Franklin Ramirez MD [address] [place] [address] [place] [address] Scheduled Orders Name Type Priority Associated Diagnoses Orde r Schedule Lactate Dehydrogenase Lab Routine Hyperprolactinemia Expected: 11/27/2023, Expires: 05/28/2024 Scheduled Procedures Name Priority Associated Diagnoses Date/Ti me REPAIR INGUINAL HERNIA, 5 YR OR OLDER, REDUCIBLE (WRVU 7.96) Right inguinal hernia 02/01/2024 2:10 PM EST MODIFIER MESH,BARD FLAT MESH Right inguinal hernia 02/01/2024 2:10 PM EST documented as of this encounter Results * Lactate, Whole Blood (11/28/2023 11:11 AM EDT) [facility] Lab Result - External See Scanned Results EXTERNAL FACILITY Comment:Lactic Acid Lvl - 1. 2 Blood VENOUS BLOOD SPECIMEN / Unknown 11/28/2023 11:11 AM EDT Aydee Lemons MD CHEMISTRY ORDERABLE S EXTERNAL FACILITY * Uric acid (11/28/2023 11:11 AM EDT) [facility] Uric Acid - External 4.5 EXTERNAL FACILITY Blood VENOUS BLOOD SPECIMEN / Unknown 11/28/2023 11:11 AM EDT Aydee Lemons MD CHEMISTRY ORDERABLE S EXTERNAL FACILITY * Sedimentation rate (11/28/2023 11:11 AM EDT) Sed Rate - External 11 EXTERNAL FACILITY Blood VENOUS BLOOD SPECIMEN / Unknown 11/28/2023 11:11 AM EDT Aydee Lemons MD HEMATOLOGY ORDERABL ES EXTERNAL FACILITY * CRP, acute inflammation (11/28/2023 11:11 AM EDT) Pathologist [facility] CRP - External 1.3 EXTER NAL FACILITY Blood VENOUS BLOOD SPECIMEN / Unknown 11/28/2023 11:11 AM EDT Aydee Lemons MD CHEMISTRY ORDERABLE S Performing Organization Address [facility]/ZIP Co de Phone Number EXTERNAL FACILITY * (ABNORMAL) TSH Coke (11/28/2023 11:11 AM EDT) [facility]ologist [facility] Lab Result - External See Scanned Results EXTERNAL FACILITY Comment:T4 Free - 1.29 TSH - External 0.135(L) EXTER NAL FACILITY Blood VENOUS BLOOD SPECIMEN / Unknown 11/28/2023 11:11 AM EDT Aydee Lemons MD CHEMISTRY ORDERABLE S Performing Organization Address [facility]/ZIP Co de Phone Number EXTERNAL FACILITY * Testosterone, total (11/28/2023 11:11 AM EDT) Pathologist [facility] Testo Total - External 601 EXTERNAL FACILITY Blood VENOUS BLOOD SPECIMEN / Unknown 11/28/2023 11:11 AM EDT Aydee Lemons MD CHEMISTRY ORDERABLE S EXTERNAL FACILITY * (ABNORMAL) Follicle Stimulating Hormone (11/28/2023 11:11 AM EDT) Pathologist [facility] FSH - External 31.2(H) EXTER NAL FACILITY Blood VENOUS BLOOD SPECIMEN / Unknown 11/28/2023 11:11 AM EDT Aydee Lemons MD CHEMISTRY ORDERABLE S EXTERNAL FACILITY * (ABNORMAL) Luteinizing Hormone (11/28/2023 11:11 AM EDT) [facility] - External 12.6(H) [facility] [place] [facility] Blood VENOUS BLOOD SPECIMEN / Unknown 11/28/2023 11:11 AM EDT Aydee Lemons MD CHEMISTRY ORDERABLE S Performing Organization Address [facility]/ZIP Co de Phone Number EXTERNAL FACILITY * Prolactin (11/28/2023 11:11 AM EDT) Pathologist [facility] Misc Lab Result - External See Scanned Results EXTERNAL FACILITY Comment:Prolactin - 9.6 Blood VENOUS BLOOD SPECIMEN / Unknown 11/28/2023 11:11 AM EDT Aydee Lemons MD CHEMISTRY ORDERABLE S Performing Organization Address [facility]/ZIP Co de Phone Number EXTERNAL FACILITY documented in this encounter Visit Diagnoses Diagnosis Hyperprolactinemia Other and unspecified anterior pituitary hyperfunction Right inguinal hernia Inguinal hernia without mention of obstruction or gangrene, unilateral or unspecified, (not specified as recurrent) documented in this encounter Care Teams Retail Management Trainee Relationship Specialty Start Date End Date Tonia Hauser PA [address] [place] [address] PCP - General Family Medicine 04/13/23 documented as of this encounter
--- OUTSIDE RECORDS SUMMARY | 2023-12-26 11:39 | XMS_ITS | Encounter Summary ---
Author Organization Replaced By [facility] [place] [address] Care Team Providers Care Marine Steam Fitter Name Role Phone Tonia Hauser Primary Care Provider [phone] Reason for Visit * Reason Comments Medication Refill Encounter Details Date Type Department Care Team (Late Contact Info) Description 11/20/2023 Refill Family Medicine at [address] [place] [address] Tonia Hauser PA [address] [facility] [place] [place] [address] Social History Tobacco Use Types Packs/Day Years Used Date Smoking Tobacco: Every Day Cigarettes Smokeless Tobacco: Never Comments:Started smoking at age 18 (1992) DENIES VAPING Alcohol Use Standard Drinks/Week Comments Not Currently 0 (1 standard drink = 0.6 oz pur e alcohol) none since Nov 2022 [facility] Utilities Answer Date Recorded In the past 12 months has [employer], gas, oil, or water [employer] threatened to shut off services in your [...] place to sleep or slept in a assisted (including now)? No 03/15/2023 DH IPV Inpatient [...] encounter Miscellaneous Notes * Telephone Encounter - Alo Ayanna Alvarado [facility] - 11/22/2023 11:06 AM EDT Prescription Renewal Request Name: Shakir Sexton : 1975 Prescription(s) Requested: Requested Prescriptions Pending Prescriptions Disp Refills folic acid (Vitamin B9) 1 mg tablet [Pharmacy Med Name: FOLIC ACID 1 MG TABLET] 90 tablet 3 Sig: TAKE ONE TABLET BY MOUTH EVERY DAY Date of Encounter last in This Dept (If need an appointment send to secretaries to schedule): 03/15/23 Next Encounter in This Dept: Visit date not found Date of Last Refill (for each medication): 09/19/23 Medication category requirements (labs etc): Status of request: Pended No Known Allergies Ayanna Prajapati CMA 11/22/23 11:06 AM documented in this encounter Plan of Treatment Upcoming Encounters Date Type Department Care Team (Latest Contact Info) Description 02/01/2024 2:10 PM EST Hospital Encounter [place] [address] Franklin Ramirez MD [address] [place] [address] [place] [address] 02/01/2024 2:10 PM EST - 02/01/2024 4:50 PM EST Surgery [place] [address] Franklin Ramirez MD [address] [place] [address] REPAIR INGUINAL HERNIA, 5 YR OR OLDER, REDUCIBLE (WRVU 7.96) 03/05/2024 11:45 AM EST Office Visit General Surgery at [address] [address] Franklin Ramirez MD [address] [place] [address] [place] [address] Scheduled Procedures Name Priority Associated Diagnoses Date/Ti pa REPAIR INGUINAL HERNIA, 5 YR OR OLDER, REDUCIBLE (WRVU 7.96) Right inguinal hernia 02/01/2024 2:10 PM EST MODIFIER MESH,BARD FLAT MESH Right inguinal hernia 02/01/2024 2:10 PM EST documented as of this encounter Visit Diagnoses Not on filedocumented in this encounter Care Teams Marine Steam Fitter Relationship Specialty Start Date End Date Tonia Hauser PA [address] [place] [address] PCP - General Family Medicine 04/13/23 documented as of this encounter
--- OUTSIDE RECORDS SUMMARY | 2023-12-26 11:39 | XMS_ITS | Encounter Summary ---
Author Organization [facility] Address [facility] [place] [address] Care Team Providers Care Stonehand Name Role Phone Tonia Hauser Primary Care Provider [phone] Reason for Referral * Surgical (Routine) - Authorized Specialty Diagnoses / Procedures Referred By Renata santos Referred To Contact General Surgery Diagnoses Non-recurrent unilateral inguinal hernia without obstruction or gangrene Eduar Newsome PA [facility] [address] [place] [address] [facility] Gen Surgery [address] [address] Referral ID Status Reason Start Date Expiration Date Visits Requested Visits Authorized [id number] Authorized Consult, Test & Treat 11/17/2023 11/16/2024 12 12 Reason for Visit * Reason Comments Hernia Started over the wee kend, no know injury. RT side. Encounter Details Date Type Department Care Team (Late st Contact Info) Description 11/17/2023 11:00 AM EDT Office Visit Internal Medicine at [facility] [address] [place] [address] Eduar Newsome PA [facility] [address] [place] [address] Non-recurrent unilateral inguinal hernia without obstruction or gangrene Social History Tobacco Use Types Packs/Day Years Used Date Smoking Tobacco: Every Day Cigarettes Smokeless Tobacco: Never Comments:Started smoking at age 18 (1992) DENIES VAPING Alcohol Use Standard Drinks/Week Comments Not Currently 0 (1 standard drink = 0.6 oz pur e alcohol) none since Nov [address] [facility] Utilities Answer Date Recorded In [...] in a long-term (including now)? No 03/15/2023 IPV Inpatient Questions Answer Date Recorded Does [...] Sign Reading Time Taken Comments Blood Pressure 108/72 11/17/2023 10:52 AM EDT Pulse 82 11/17/2023 10:52 AM EDT Temperature 36.4 ??C (97.5 ??F) 11/17/2023 10:52 AM E DT Respiratory Rate - - Oxygen Saturation 97% 11/17/2023 10:52 AM EDT Inhaled Oxygen Concentration - - Weight 73.9 kg (163 lb) 11/17/2023 10:52 AM EDT Height 175.3 cm (5' 9.02) 11/17/2023 10:52 AM E DT Body Mass Index 24.06 11/17/2023 10:52 AM EDT documented in this encounter Progress Notes * Eduar Newsome PA - 11/17/2023 11:00 AM EDT [facility]ICINE AT [facility] [address] [facility] [address] CHIEF COMPLAINT Monisha Sexton is a 48 y.o. male who presents to clinic for @CCNNOLB@. HPI 48 year old male today for follow up from ed vist on 11/15/23 for right hernia Note is avaliable to review through care everywhere, appears that this was reduced and patient was sent home. No imaging was done at the time of the visit. Patient reports that is still able to reduce, but will bulge back out. Self reduces while laying down No scrotal swelling Painful at times when bulging No urinary symtoms or complaints No fever, rash, erythema, streaking past medical hx, family hx and social hx is reviewed and is pertinent to above complaints CURRENT MEDS Current Outpatient Medications: rifAXIMin (Xifaxan) 550 mg tablet, Take 550 mg by mouth daily., Disp: , Rfl: furosemide (Lasix) 40 mg tablet, TAKE ONE TABLET BY MOUTH EVERY DAY, Disp: 90 tablet, Rfl: 3 folic acid (Vitamin B9) 1 mg tablet, TAKE ONE TABLET BY MOUTH EVERY DAY, Disp: 30 tablet, Rfl: 1 potassium chloride ER (Klor-Con, K-Tab) 10 mEq ER tablet, Take 1 tablet by mouth daily., Disp: 90 tablet, Rfl: 3 multivitamin Xiju-Wa-FW-Min (Therapeutic-M) 27-0.4 mg Tablet, Take 1 tablet by mouth daily., Disp: 90 tablet, Rfl: 3 lactulose (Chronulac) 10 gram/15 mL Solution, Take 30 mLs by mouth 3 times daily. Titrate to 3-4 bowel movements a day, Disp: 1892 mL, Rfl: 3 spironolactone (Aldactone) 100 mg tablet, Take 1 tablet by mouth daily., Disp: 30 tablet, Rfl: 11 ALLERGIES Patient has no known allergies. PAST MEDICAL HISTORY No past medical history on file. PAST SURGICAL HISTORY Past Surgical History: Procedure Laterality Date PRO COLONOSCOPY FLEXIBLE W ABLATION TUMOR POLYP/OTHER LESION N/A 05/16/2023 COLONOSCOPY; W ABLATION TUMOR/POLYP/LESION (WRVU 4.88) performed by Luis Antonio Mendoza MD at [facility] ENDOSCOPY PRO UPPER GI ENDOSCOPY, BIOPSY N/A 05/16/2023 EGD WITH BIOPSY (WRVU 2.39) performed by Luis Antonio Mendoza MD at [facility] ENDOSCOPY PRO UPPER GI ENDOSCOPY, DIAGNOSTIC N/A 01/11/2023 EGD, UPPER GI ENDOSCOPY (WRVU 2.09) performed by Rehan Matta MD at [facility] ENDOSCOPY FAMILY HISTORY No family history on file. SOCIAL HISTORY reports that he has been smoking cigarettes. He has never used smokeless tobacco. He reports that he does not currently use alcohol. He reports current drug use. Drug: Marijuana. REVIEW OF SYSTEMS: See HPI VITALS BP 108/72 (BP Location (NBP): Left arm, Patient Position: Sitting, BP Cuff Sizes: Adult (25-34 cm)) Pulse 82 Temp 36.4 ??C (97.5 ??F) (Temporal) Ht 175.3 cm (5' 9.02) Wt 73.9 kg (163 lb) SpO2 97% BMI 24.06 kg/m?? PHYSICAL EXAM : circumcised male testes descended bilaterally No skin lesions . There is no swelling of the shaft or the scrotum. meatus open without discharge- there is a large soft easily reducible inguinal mass seen along the right inguinal canal just proximal to the penis and scrotum Non tender to palpation, no erythema or streaking No inguinal lymphadenopathy ASSESSMENT AND PLAN Patient Active Problem List Diagnosis Code Alcoholic cirrhosis of liver with ascites K70.31 Acute GI bleeding K92.2 Prolonged Q-T interval on ECG R94.31 Hyponatremia E87.1 Cigarette smoker F17.210 End stage liver disease K72.10 *Severe alcohol use disorder F10.20 PROBLEM 1: Inguinal hernia, right: Order placed for us to confirm. Referral placed for general surgery Discussed worrisome symptoms that would warrant an emergency visit in the interim ( ie incarceratedhernia) Seek emergent care in the interim if occurring ROSALES Preston 11/17/2023 documented in this encounter Plan of Treatment Upcoming Encounters Date Type Department Care Team (Latest Contact Info) Description 02/01/2024 2:10 PM EST Hospital Encounter Main [place] [address] Franklin Ramirez MD [address] [place] [address] [place] [address] 02/01/2024 2:10 PM EST - 02/01/2024 4:50 PM EST Surgery Main [place] [address] Franklin Ramirez MD [address] [place] [address] [place] [address] REPAIR INGUINAL HERNIA, 5 YR OR OLDER, REDUCIBLE (WRVU 7.96) 03/05/2024 11:45 AM EST Office Visit General Surgery at [address] [address] Franklin Ramirez MD [address] [place] [address] [place] [address] Scheduled Procedures Name Priority Associated Diagnoses Date/Ti me REPAIR INGUINAL HERNIA, 5 YR OR OLDER, REDUCIBLE (WRVU 7.96) Right inguinal hernia 02/01/2024 2:10 PM EST MODIFIER MESH,BARD FLAT MESH Right inguinal hernia 02/01/2024 2:10 PM EST Scheduled Referrals Name Type Priority Associated Diagnoses Orde r Schedule Referral to General Surgery Outpatient Referral Routine Non-recurrent unilateral inguinal hernia without obstruction or gangrene Ordered: 11/17/2023 documented as of this encounter Results * US Extremity Non Vascular Limited Right (Non-MSK) (12/02/2023 1:30 PM EDT) WORKSTATION ID [id number] RAD Anatomical Region Laterality Modality Ultrasound 12/02/2023 1:26 PM EDT Impressions 12/02/2023 2:16 PM EDT Small right inguinal hernia containing fat and a small amount of ascites fluid. Electronically signed by: Talita Layton MD, [facility] ([phone]), at 12/02/2023 2:09 PM Thank you for letting us participate in the care of this patient. If you are a health care provider and have any questions regarding this report, please contact the number above. For patients who have questions, please contact the health child care nurse that requested your imaging first. ? Talita Layton, Staff Physician Electronically Signed Final Report ?? 12/02/2023 02:15 pm Narrative 12/02/2023 2:16 PM EDT Ultrasound Report ? (Signed Final 12/02/2023 02:15 pm) PATIENT INFO: ID #: ? [id number] ?: ??[birth year] (48 yrs)(M) Name: ? MONISHA SEXTON ? Visit Date: 12/02/2023 01:26 pm PERFORMED BY: Attending: ?Calin SANCHEZ, Talita Naidu Performed By: ? Eric [facility], Brenda Referred By: ?DONYA LAZO Location: ? [place] SERVICE(S) PROVIDED: UEXTLMTR - Extremity Limited Non Vascular - ? [id number] Right - [id number] INDICATIONS: new right sided inguinal bulge - likely inguinal hernia, would like ultrasound to confirm prior to seeing gen surg COMPARISON: CT: Abdomen Pelvis 11/09/23 --------- FINDINGS: --------- Title: ? Ultrasound Report Findings: ?Small right inguinal hernia with approximately 1.6 ?cm fascial defect. The hernia sac contains ?hypoechoic regions, most likely reflecting ascites ?fluid as aseen on CT 01/11/23. Procedure Note Talita Layton MD - 12/02/2023 Ultrasound Report (Signed Final 12/02/2023 02:15 pm) PATIENT INFO: ID #: [id number] : [birth year] (48 yrs)(M) Name: MONISHA SEXTON Visit Date: 12/02/2023 01:26 pm PERFORMED BY: Attending: Talita Layton MD Performed By: Brenda Reyes RDMS Referred By: DONYA LAZO Location: [place] SERVICE(S) PROVIDED: UEXTLMTR - Extremity Limited Non Vascular - [id number] Right - [id number] INDICATIONS: new right sided inguinal bulge - likely inguinal hernia, would like ultrasound to confirm prior to seeing gen surg COMPARISON: CT: Abdomen Pelvis 11/09/23 --------- FINDINGS: --------- Title: Ultrasound Report Findings: Small right inguinal hernia with approximately 1.6 cm fascial defect. The hernia sac contains hypoechoic regions, most likely reflecting ascites fluid as aseen on CT 01/11/23. IMPRESSION Small right inguinal hernia containing fat and a small amount of ascites fluid. Electronically signed by: Talita Layton MD, [facility] ([phone]), at 12/02/2023 2:09 PM Thank you for letting us participate in the care of this patient. If you are a health care provider and have any questions regarding this report, please contact the number above. For patients who have questions, please contact the health child care nurse that requested your imaging first. Talita Layton, Staff Physician Electronically Signed Final Report 12/02/2023 02:15 pm Donya Lazo MD IMG GEN ORDERAB LES documented in this encounter Visit Diagnoses Diagnosis Non-recurrent unilateral inguinal hernia without obstruction or gangrene Non-recurrent unilateral inguinal hernia without obstruction or gangrene Right inguinal hernia Inguinal hernia without mention of obstruction or gangrene, unilateral or unspecified, (not specified as recurrent) documented in this encounter Care Teams Stonehand Relationship Specialty Start Date End Date Tonia Hauser PA [address] [place] [address] PCP - General Family Medicine 04/13/23 documented as of this encounter
--- OUTSIDE RECORDS SUMMARY | 2023-12-26 11:39 | XMS_ITS | Encounter Summary ---
Author Organization [facility] Address [facility] [place] [address] Care Team Providers Care Showroom Sales Assistant Name Role Phone Tonia Hauser Primary Care Provider [phone] Encounter Details Date Type Department Care Team (Latest Contact Info) Description 11/10/2023 Travel Social History Tobacco Use Types Packs/Day Years Used Date Smoking Tobacco: Every Day Cigarettes Smokeless Tobacco: Never Comments:Started smoking at age 18 (1992) DENIES VAPING Alcohol Use Standard Drinks/Week Comments Not Currently 0 (1 standard drink = 0.6 oz pur e alcohol) none since Nov 2022 [facility] Utilities Answer Date Recorded In the past 12 months has [employer], gas, oil, or water company threatened [...] PM EST Hospital Encounter Main [place] [address] Franklin Ramirez MD [address] [place] [address] [place] [address] 02/01/2024 2:10 PM EST - 02/01/2024 4:50 PM EST Surgery Main [place] [address] Franklin Ramirez MD [address] [place] [address] [place] [address] REPAIR INGUINAL HERNIA, 5 YR OR OLDER, REDUCIBLE (WRVU 7.96) 03/05/2024 11:45 AM EST Office Visit General Surgery at [facility] [address] [place] [phone] Franklin Ramirez MD [address] [place] [address] [place] [address] Scheduled Procedures Name Priority Associated Diagnoses Date/Ti me REPAIR INGUINAL HERNIA, 5 YR OR OLDER, REDUCIBLE (WRVU 7.96) Right inguinal hernia 02/01/2024 2:10 PM EST MODIFIER MESH,BARD FLAT MESH Right inguinal hernia 02/01/2024 2:10 PM EST documented as of this encounter Visit Diagnoses Not on filedocumented in this encounter Care Teams Showroom Sales Assistant Relationship Specialty Start Date End Date Tonia Hauser PA [address] [place] [address] PCP - General Family Medicine 04/13/23 documented as of this encounter
--- OUTSIDE RECORDS SUMMARY | 2023-12-26 11:39 | XMS_ITS | Encounter Summary ---
Author Organization [facility] Address [facility] [place] [address] Care Team Providers Care Sock Lining Stitcher Name Role Phone Tonia Hauser Primary Care Provider [phone] Encounter Details Date Type Department Care Team (Latest Contact Info) Description 11/09/2023 Travel Social History Tobacco Use Types Packs/Day Years Used Date Smoking Tobacco: Every Day Cigarettes Smokeless Tobacco: Never Comments:Started smoking at age 18 (1992) DENIES VAPING Alcohol Use Standard Drinks/Week Comments Not Currently 0 (1 standard drink = 0.6 oz pur e alcohol) none since Nov 2022 [facility] Utilities Answer Date Recorded In the past 12 months has [employer], gas, oil, or water company threatened [...] place to sleep or slept in a senior care (including now)? No 03/15/2023 DH IPV Inpatient [...] PM EST Hospital Encounter [place] [address] Franklin Ramirez MD [address] [place] [address] [place] [address] 02/01/2024 2:10 PM EST - 02/01/2024 4:50 PM EST Surgery [place] [phone] Franklin Ramirez MD [address] [place] [address] [place] [address] REPAIR INGUINAL HERNIA, 5 YR OR OLDER, REDUCIBLE (WRVU 7.96) 03/05/2024 11:45 AM EST Office Visit General Surgery at [facility] [address] [place] [phone] Franklin Ramirez MD [address] [place] [address] [place] [address] Scheduled Procedures Name Priority Associated Diagnoses Date/Ti me REPAIR INGUINAL HERNIA, 5 YR OR OLDER, REDUCIBLE (WRVU 7.96) Right inguinal hernia 02/01/2024 2:10 PM EST MODIFIER MESH,BARD FLAT MESH Right inguinal hernia 02/01/2024 2:10 PM EST documented as of this encounter Visit Diagnoses Not on filedocumented in this encounter Care Teams Sock Lining Stitcher Relationship Specialty Start Date End Date Tonia Hauser PA [address] [place] [address] PCP - General Family Medicine 04/13/23 documented as of this encounter
--- OUTSIDE RECORDS SUMMARY | 2023-12-26 11:39 | XMS_ITS | Encounter Summary ---
Author Organization Formerly [facility] Address [facility] [place] [address] Care Team Providers Care Horse Show Manager Name Role Phone Tonia Hauser Primary Care Provider [phone] Encounter Details Date Type Department Care Team (Late st Contact Info) Description 11/11/2023 5:10 PM EDT Laboratory Appointment Lab 3L [facility] [place] [phone] Polymyalgia Social History Tobacco Use Types Packs/Day Years Used Date Smoking Tobacco: Every Day Cigarettes Smokeless Tobacco: Never Comments:Started smoking at age 18 (1992) DENIES VAPING Alcohol Use Standard Drinks/Week Comments Not Currently 0 (1 standard drink = 0.6 oz pur e alcohol) none since Nov 2022 [facility] Utilities Answer Date Recorded In the past [...] place to sleep or slept in a snf (including now)? No 03/15/2023 DH IPV Inpatient [...] PM EST Hospital Encounter [place] [phone] Franklin Ramirez MD [address] [place] [address] [place] [address] 02/01/2024 2:10 PM EST - 02/01/2024 4:50 PM EST Surgery [place] [phone] Franklin Ramirez MD [address] [place] [address] [place] [address] REPAIR INGUINAL HERNIA, 5 YR OR OLDER, REDUCIBLE (WRVU 7.96) 03/05/2024 11:45 AM EST Office Visit General Surgery at [facility] [address] [place] [phone] Franklin Ramirez MD [address] [place] [address] [place] [address] Scheduled Procedures Name Priority Associated Diagnoses Date/Ti nj REPAIR INGUINAL HERNIA, 5 YR OR OLDER, REDUCIBLE (WRVU 7.96) Right inguinal hernia 02/01/2024 2:10 PM EST MODIFIER MESH,BARD FLAT MESH Right inguinal hernia 02/01/2024 2:10 PM EST documented as of this encounter Procedures Procedure Name Priority Date/Time Associated Diagnosis Comments PTH Routine 11/11/2023 4:28 PM EDT Polymyalgia IRON AND TIBC Routine 11/11/2023 4:28 PM EDT Polymyalgia [id number] Routine 11/11/2023 4 :28 PM EDT Polymyalgia VITAMIN D, 25-HYDROXY Routine 11/11/2023 4:28 PM EDT Polymyalgia PROLACTIN Routine 11/11/2023 4:28 PM EDT Polymyalgia VITAMIN B6 Routine 11/11/2023 4:28 PM EDT Polymyalgia PHOSPHORUS Routine 11/11/2023 4:28 PM EDT Polymyalgia MAGNESIUM Routine 11/11/2023 4:28 PM EDT Polymyalgia FOLATE, SERUM Routine 11/11/2023 4:28 PM EDT Polymyalgia FERRITIN Routine 11/11/2023 4:28 PM EDT Polymyalgia VITAMIN B12 Routine 11/11/2023 4:28 PM EDT Polymyalgia CK Routine 11/11/2023 4:28 PM EDT Polymyalgia documented in this encounter Results * PTH (11/11/2023 4:28 PM EDT) Parathyroid Hormone 15 15 - 65 pg/mL 11/11/2023 5:26 PM EDT [facility] Blood VENOUS BLOOD SPECIMEN / Unknown Venipuncture / Unknown 11/11/2023 4:28 PM EDT 11/11/2023 4:28 PM EDT Aydee Lemons MD CHEMISTRY ORDERABLE S Performing Organization Address City/[facility]/ZIP Co de Phone Number [facility] [place] [address] * (ABNORMAL) Prolactin (11/11/2023 4:28 PM EDT) Prolactin 15.5(H) 4.0 - 15.2 ng/ml 11/11/2023 6:38 PM EDT [facility] Blood VENOUS BLOOD SPECIMEN / Unknown Venipuncture / Unknown 11/11/2023 4:28 PM EDT 11/11/2023 4:28 PM EDT Aydee Lemons MD CHEMISTRY ORDERABLE S [facility] [place] [address] * Folate, serum (11/11/2023 4:28 PM EDT) Folate 20.0 4.8 - 24.2 ng/ml 11/11/2023 5:40 PM EDT [facility] Blood VENOUS BLOOD SPECIMEN / Unknown Venipuncture / Unknown 11/11/2023 4:28 PM EDT 11/11/2023 4:28 PM EDT Aydee Lemons MD CHEMISTRY ORDERABLE S [facility] [place] [address] * Vitamin B6 (11/11/2023 4:28 PM EDT) Pathologist [facility] PYRIDOXAL 5-PHOSPHATE (PLP) 12 5 - 50 mcg/L 11/18/2023 11:19 AM EDT REF LAB [facility] Comment: ADDITIONAL INFORMATION This test was developed and its performance characteristics determined by [facility] in a manner consistent with CLIA requirements. This test has not been cleared or approved by the [place].S. Food and Drug Administration. Blood VENOUS BLOOD SPECIMEN / Unknown Venipuncture / Unknown 11/11/2023 4:28 PM EDT 11/11/2023 4:28 PM EDT Narrative REF LAB [facility] 11/18/2023 11:19 AM EDT Test Performed by: [facility] [address] [place] [address] Assistant Operator: Heladio Lizarraga Ph.D.; CLIA# [id number] Aydee Lemons MD LAB SEND OUT ORDERA BLES Performing Organization Address [facility]/ZIP Co de Phone Number REF LAB [address] * Vitamin B12 (11/11/2023 4:28 PM EDT) [facility] Vitamin B12 794 232 - 1,245 pg/mL 11/11/2023 5:40 PM EDT [facility] Blood VENOUS BLOOD SPECIMEN / Unknown Venipuncture / Unknown 11/11/2023 4:28 PM EDT 11/11/2023 4:28 PM EDT Aydee Lemons MD CHEMISTRY ORDERABLE S [facility] [place] [address] * Vitamin D, 25-Hydroxy (11/11/2023 4:28 PM EDT) Vitamin D Total 25 OH 38 21 - 100 ng/ml 11/11/2023 5:40 PM EDT [facility] Vitamin D Total 25 OH Interp Sufficient 11/11/2023 5:40 PM EDT [facility] Blood VENOUS BLOOD SPECIMEN / Unknown Venipuncture / Unknown 11/11/2023 4:28 PM EDT 11/11/2023 4:28 PM EDT Aydee Lemons MD CHEMISTRY ORDERABLE S [facility] [place] [address] * A1AT Serum Concentration (11/11/2023 4:28 PM EDT) Htlgk-0-Neoqjk ypsin 195 90 - 200 mg/dL 11/11/2023 6:38 PM EDT [facility] Blood VENOUS BLOOD SPECIMEN / Unknown Venipuncture / Unknown 11/11/2023 4:28 PM EDT 11/11/2023 4:28 PM EDT Aydee Lemons MD CHEMISTRY ORDERABLE S [facility] [place] [address] * Ferritin (11/11/2023 4:28 PM EDT) Ferritin 80 31 - 409 ng/ml 11/11/2023 5:40 PM EDT [facility] Blood VENOUS BLOOD SPECIMEN / Unknown Venipuncture / Unknown 11/11/2023 4:28 PM EDT 11/11/2023 4:28 PM EDT Aydee Lemons MD CHEMISTRY ORDERABLE S [facility] [place] [address] * Iron and TIBC (11/11/2023 4:28 PM EDT) Iron 72 45 - 160 mcg/dL 11/11/2023 5:37 PM EDT [facility] TIBC 336 250 - 450 mcg/dL 11/11/2023 5:37 PM EDT [facility] Iron Saturation 21 20 - 50 % 5:37 PM EDT [facility] Blood VENOUS BLOOD SPECIMEN / Unknown Venipuncture / Unknown 11/11/2023 4:28 PM EDT 11/11/2023 4:28 PM EDT Aydee Lemons MD CHEMISTRY ORDERABLE S [facility] [place] [address] * CK (11/11/2023 4:28 PM EDT) Creatine Kinase 50 0 - 200 unit/L 11/11/2023 5:37 PM EDT [facility] Blood VENOUS BLOOD SPECIMEN / Unknown Venipuncture / Unknown 11/11/2023 4:28 PM EDT 11/11/2023 4:28 PM EDT Aydee Lemosn MD CHEMISTRY ORDERABLE S [facility] [place] [address] * Phosphorus (11/11/2023 4:28 PM EDT) Phosphorus 3.5 2.5 - 4.5 mg/dL 11/11/2023 5:37 PM EDT [facility] Blood VENOUS BLOOD SPECIMEN / Unknown Venipuncture / Unknown 11/11/2023 4:28 PM EDT 11/11/2023 4:28 PM EDT Aydee Lemons MD CHEMISTRY ORDERABLE S [facility] [place] [address] * Magnesium (11/11/2023 4:28 PM EDT) Magnesium 0.72 0.69 - 1.07 mMol/L 11/11/2023 5:37 PM EDT [facility] Blood VENOUS BLOOD SPECIMEN / Unknown Venipuncture / Unknown 11/11/2023 4:28 PM EDT 11/11/2023 4:28 PM EDT Aydee Lemons MD CHEMISTRY ORDERABLE S Performing Organization Address City/[facility]/[place] [address] documented in this encounter Visit Diagnoses Diagnosis Polymyalgia Polymyalgia rheumatica Right inguinal hernia Inguinal hernia without mention of obstruction or gangrene, unilateral or unspecified, (not specified as recurrent) documented in this encounter Care Teams Horse Show Manager Relationship Specialty Start Date End Date Tonia Hauser PA [address] [place] [address] PCP - General Family Medicine 04/13/23 documented as of this encounter
--- OUTSIDE RECORDS SUMMARY | 2023-12-26 11:39 | XMS_ITS | Clinical Summary ---
Author Organization [facility] Address [facility] [place] [address] Care Team Providers Care Carrot Tier Name Role Phone Tonia Hauser Primary Care Provider Allergies No known active allergies Medications Medication Sig Dispensed Refills Start Date End Date Status spironolactone (Aldactone) 100 mg tabletIndications:Alc oholic cirrhosis of liver with ascites Take 1 tablet by mouth daily. 30 tablet 11 02/14/2023 Active lactulose (Chronulac) 10 gram/15 mL Solution Take 30 mLs by mouth 3 times daily. Titrate to 3-4 bowel movements a day 1892 mL 3 03/16/2023 Active potassium chloride ER (Klor-Con, K-Tab) 10 mEq ER tabletIndications:Hyp okalemia Take 1 tablet by mouth daily. 90 tablet 3 04/12/2023 Active furosemide (Lasix) 40 mg tablet TAKE ONE TABLET BY MOUTH EVERY DAY 90 tablet 3 09/21/2023 Active rifAXIMin (Xifaxan) 550 mg tablet Take 550 mg by mouth daily. Active folic acid (Vitamin B9) 1 mg tablet TAKE ONE TABLET BY MOUTH EVERY DAY 90 tablet 3 11/22/2023 Active Tab-A-Gonzalez Multivitamin w-iron 15 mg iron- 400 mcg Tablet Take 1 tablet by mouth Daily at Noon. 11/23/2023 Active Active Problems Problem Noted Date Diagnosed Date End stage liver disease 03/15/2023 *Severe alcohol use disorder 03/15/2023 Prolonged Q-T interval on ECG 01/23/2023 Hyponatremia 01/23/2023 Overview (01/23/2023): hypoosm hyponatremia suspected 2/2 hypervolemic state iso decomp cirrhosis (ADH, RAAS on Sept w/ level 122?baseline 125); prev imp w fluid restriction 1.5L Cigarette smoker 01/23/2023 Alcoholic cirrhosis of liver with ascites 2022 Overview (01/23/2023): ETOH related; Dx 11/2022 iso UGIB 2/2 PHG (grade D) and HE w coagulopathy MELD 23 at dx; last para 01/12 1.5L no SBP (and not on ppx); last EGD 01/12/2023 w small, nonbleeding esoph varices not on ppx due 2024; last HCC surveill RUQUS 01/12/2023 no lesions, no PVT (and AFP neg 11/27) due July 2023 Acute GI bleeding 01/11/2023 Overview (01/23/2023): Recurrent UGIB at 01/2023 (same 11/20[place] [facility] d/t PHG w grade D esophagitis; hematochezia Oct 2022 not yet evaluated w formal colo; Hb responsive to tx UGI source Encounters Date Type Department Care Team Description 12/23/2023 9:30 AM EDT TH Visit (TeleHealth) Family Medicine at [facility] [address] [place] [address] Tonia Hauser PA Low TSH level (Primary Dx); High serum triiodothyronine (T3); Hyperprolactinemia 12/23/2023 E-Consult Endocrinology at [address] [phone] Valarie Cardoza MD Hyperthyroidism 12/22/2023 Orders Only Family Medicine at [facility] [address] [place] [address] Tonia Hauser PA Low TSH level; High serum triiodothyronine (T3) 12/14/2023 External Results Family Medicine at [facility] [address] [place] [address] Nena Pisano CMA Healthcare maintenance; Low TSH level 12/12/2023 9:30 AM EDT TH Visit (TeleHealth) Family Medicine at [facility] [address] [place] [address] Tonia Hauser PA Low TSH level (Primary Dx); Healthcare maintenance 12/12/2023 Telephone [place] [address] Macey Toledo, RN 12/08/2023 Telephone Family Medicine at [facility] [address] [place] [address] Charbel Lauren, RN 12/07/2023 1:45 PM EDT Office Visit General Surgery at [place] [phone] Franklin Ramirez MD Right inguinal hernia 12/06/2023 Travel 12/06/2023 Telephone Family Medicine at [facility] [address] [place] [address] Charbel Lauren, RN 12/02/2023 12:53 PM EDT - 12/02/2023 11:59 PM EDT Hospital Encounter Ultrasound at [place] [phone] Donya Lazo MD Non-recurrent unilateral inguinal hernia without obstruction or gangrene Discharge Disposition: Home 12/01/2023 Travel 11/29/2023 External Results Family Medicine at [facility] [address] [place] [address] Nena Pisano CMA Hyperprolactinemia 11/20/2023 Refill Family Medicine at [facility] [address] [place] [address] Tonia Hauser PA 11/20/2023 Refill Family Medicine at [facility] [address] [place] [address] Tonia Hauser PA 11/17/2023 11:00 AM EDT Office Visit Internal Medicine at [facility] [address] [place] [address] Eduar Newsome PA Non-recurrent unilateral inguinal hernia without obstruction or gangrene 11/16/2023 Travel 11/13/2023 Orders Only Family Medicine at [facility] [address] [place] [phone] Tonia Hauser PA Hyperprolactinemia 11/11/2023 5:10 PM EDT Laboratory Appointment Lab [address] [place] [address] Polymyalgia 11/11/2023 3:30 PM EDT Office Visit Family Medicine at [facility] [address] [place] [address] Tonia Hauser PA Polymyalgia (Primary Dx) 11/10/2023 Travel 11/10/2023 Nurse Triage Family Medicine at [facility] [address] [place] [address] Kylah Dow RN Extremity Weakness (Complaining of muscle weakness and pain) 11/09/2023 1:30 PM EDT Office Visit [place] [address] Rocky Calvert APRN Alcoholic cirrhosis of liver with ascites; Hepatic encephalopathy 11/09/2023 11:45 AM EDT Laboratory Appointment Lab [address] [place] [address] Alcoholic cirrhosis of liver with ascites 11/09/2023 10:51 AM EDT - 11/09/2023 11:59 PM EDT Hospital Encounter [place] [address] Rocky Calvert APRN Alcoholic cirrhosis of liver with ascites Discharge Disposition: Home 11/09/2023 Travel 11/02/2023 Travel from Last 3 Months Immunizations Name Administration Dates Next Due Hepatitis A Adult (Havrix, Vaqta) 11/27/2022 Hepatitis A/B (TwinRix) 01/24/2023 Hepatitis B Adult (Engerix-B, Recombivax) 2022 Influenza Quadrivalent, Preservative Free 2022 Social History Tobacco Use Types Packs/Day Years Used Date Smoking Tobacco: Every Day Cigarettes Smokeless Tobacco: Never Tobacco Cessation:Ready to Q uit: Not Asked; Counseling Given: Not Answered Comments:Started smoking at age 18 (1992) DENIES VAPING Alcohol Use Standard Drinks/Week Comments Not Currently 0 (1 standard drink = 0.6 oz pur e alcohol) none since Nov 2022 [facility] Utilities Answer Date Recorded In the past 12 months has th e [employer], gas, oil, or water [employer] threatened to shut off services in your [...] place to sleep or slept in a care home (including now)? No 03/15/2023 DH IPV Inpatient Questions Answer Date Recorded Does Anyone Try to Keep You From Having Contact with Others or Doing Things Outside Your Home? no 01/11/2023 Feels Threatened by Someone no 0 09/2022 Feels Unsafe at Home or Work/School no 01/11/2023 Physical Signs of Abuse Present no 01/11/2023 Sex and Gender Information Value Date Recorded Sex Assigned at Male 03/15/2023 10:19 AM EST Gender Identity Male 03/15/2023 10:19 AM EST Sexual Orientation Straight 03/15/2023 10 :19 AM EST Last Filed Vital Signs Vital Sign Reading Time Taken Comments Blood Pressure 106/61 12/07/2023 1:14 PM EDT Pulse 86 12/07/2023 1:14 PM EDT Temperature 36.4 ??C (97.5 ??F) 11/17/2023 10:52 AM E DT Respiratory Rate 16 12/07/2023 1:14 PM EDT Oxygen Saturation 99% 12/07/2023 1:14 PM EDT Inhaled Oxygen Concentration - - Weight 74.6 kg (164 lb 6.4 oz) 12/07/2023 1:14 P M EDT Height 175.3 cm (5' 9.02) 12/07/2023 1:14 PM ED T Body Mass Index 24.27 12/07/2023 1:14 PM EDT Plan of Treatment Upcoming Encounters Date Type Department Care Team (Latest Contact Info) Description 02/01/2024 2:10 PM EST Hospital Encounter Main [place] [phone] Franklin Ramirez MD [address] [place] [address] [place] [address] 02/01/2024 2:10 PM EST - 02/01/2024 4:50 PM EST Surgery Main [place] [phone] Franklin Ramirez MD [address] [place] [id number] REPAIR INGUINAL HERNIA, 5 YR OR OLDER, REDUCIBLE (WRVU 7.96) 03/05/2024 11:45 AM EST Office Visit General Surgery at [facility] [address] [place] [address] [place] [address] Franklin Ramirez MD [address] [place] [address] [place] [address] Scheduled Procedures Name Priority Associated Diagnoses Date/Ti me REPAIR INGUINAL HERNIA, 5 YR OR OLDER, REDUCIBLE (WRVU 7.96) Right inguinal hernia 02/01/2024 2:10 PM EST MODIFIER MESH,BARD FLAT MESH Right inguinal hernia 02/01/2024 2:10 PM EST Health Maintenance Due Date Last Done Comments CT Colonography 1974 FIT DNA 1974 FIT 1974 Sigmoidoscopy 1974 Pneumococcal Vaccine: At-Ris k 5-64yrs (1 of 2 - PCV) 01/06/1980 Tetanus/Diphtheria/Pertussis Vaccines (1 - Tdap) 1993 Covid-19 Vaccine ( - 2022-2 4 season) 2023 Influenza (Flu) vaccine (1 o f 1 - Influenza standard series) 11/06/2023 2023 Lipid Screening 12/11/2028 12/12/2023 Colonoscopy 05/15/2033 05/16/2023 Colorectal Cancer Screening 05/15/2033 Sigmoidoscopy (10 year) with FIT yearly 05/15/2033 05/16/2023 HIV screen Completed 01/25/2023 Hepatitis C Screening Completed 01/25/2023 Diabetes Screening (HgbA1C o r Glucose) Discontinued 11/09/2023, 04/22/2023, 01/24/2023, Additional history exists Procedures Procedure Name Priority Date/Time Associated Diagnosis Comments THYROGLOBULIN ANTIBODY Routine 12:47 PM EDT Low TSH level T3, FREE Routine 12/12/2023 12:47 PM EDT Low TSH level T3 TOTAL Routine 12/12/2023 12:47 PM EDT Low TSH level TSH Routine 12/12/2023 12:47 PM EDT Low TSH level T4, FREE Routine 12/12/2023 12:47 PM EDT Low TSH level T4 TOTAL Routine 12/12/2023 12:47 PM EDT Low TSH level LIPID PANEL (REFLEX DIRECT LDL) Routine 12/12/2023 12:47 PM EDT Healthcare maintenance US EXTREMITY NON VASCULAR LIMITED ANATOMIC SPECIFIC RIGHT Routine 12/02/2023 1:30 PM EDT Non-recurrent unilateral inguinal hernia without obstruction or gangrene PROLACTIN Routine 11/28/2023 11:11 AM EDT Hyperprolactinemia TESTOSTERONE, TOTAL Routine 11/28/2023 1 1:11 AM EDT Hyperprolactinemia LUTEINIZING HORMONE Routine 11/28/2023 1 1:11 AM EDT Hyperprolactinemia FOLLICLE STIMULATING HORMONE Routine 11/28/2023 11:11 AM EDT Hyperprolactinemia TSH CASCADE Routine 11/28/2023 11:11 AM EDT Hyperprolactinemia CRP, ACUTE INFLAMMATION Routine 11/28/2023 11:11 AM EDT Hyperprolactinemia URIC ACID Routine 11/28/2023 11:11 AM EDT Hyperprolactinemia SEDIMENTATION RATE Routine 11/28/2023 11 :11 AM EDT Hyperprolactinemia LACTATE, WHOLE BLOOD Routine 11/28/2023 11:11 AM EDT Hyperprolactinemia LAB SCAN 11/28/2023 12:00 AM EDT PTH Routine 11/11/2023 4:28 PM EDT Polymyalgia PROLACTIN Routine 11/11/2023 4:28 PM EDT Polymyalgia FOLATE, SERUM Routine 11/11/2023 4:28 PM EDT Polymyalgia VITAMIN B6 Routine 11/11/2023 4:28 PM EDT Polymyalgia VITAMIN B12 Routine 11/11/2023 4:28 PM EDT Polymyalgia VITAMIN D, 25-HYDROXY Routine 11/11/2023 4:28 PM EDT Polymyalgia [id number] Routine 11/11/2023 4 :28 PM EDT Polymyalgia FERRITIN Routine 11/11/2023 4:28 PM EDT Polymyalgia IRON AND TIBC Routine 11/11/2023 4:28 PM EDT Polymyalgia CK Routine 11/11/2023 4:28 PM EDT Polymyalgia PHOSPHORUS Routine 11/11/2023 4:28 PM EDT Polymyalgia MAGNESIUM Routine 11/11/2023 4:28 PM EDT Polymyalgia PROTHROMBIN TIME Routine 11/09/2023 12:0 2 PM EDT Alcoholic cirrhosis of liver with ascites COMPREHENSIVE METABOLIC PANEL Routine 11/09/2023 12:02 PM EDT Alcoholic cirrhosis of liver with ascites CBC (WITH DIFF) Routine 11/09/2023 12:02 PM EDT Alcoholic cirrhosis of liver with ascites US ABDOMEN LIMITED HEPATOLOGY PROTOCOL Routine 11/09/2023 11:22 AM EDT Alcoholic cirrhosis of liver with ascites COLONOSCOPY Routine 05/16/2023 2:48 PM EDT HIV SCREEN, 4TH GENERATION ([facility]D/[place] Routine 01/25/2023 9:57 AM EST Neutropenia, unspecified type Alcoholic cirrhosis of liver with ascites HEPATITIS C ANTIBODY Routine 01/25/2023 9:57 AM EST Neutropenia, unspecified type Alcoholic cirrhosis of liver with ascites from Last 3 Months or Most Recently Relevant to Health Maintenance Results * Thyroglobulin Antibody (12/12/2023 12:47 PM EDT) Thyroglob Ab - External <15 EXTERNAL FACILITY Blood VENOUS BLOOD SPECIMEN / Unknown 12/12/2023 12:47 PM EDT Aydee Lemons MD LAB SEND OUT ORDERA BLES Performing Organization Address City/[facility]/ZIP Co de Phone Number EXTERNAL FACILITY * T3, free (12/12/2023 12:47 PM EDT) T3, Free - External 5.2 EXTERNAL FACILITY Blood VENOUS BLOOD SPECIMEN / Unknown 12/12/2023 12:47 PM EDT Aydee Lemons MD CHEMISTRY ORDERABLE S Performing Organization Address [facility] Co de Phone Number EXTERNAL FACILITY * (ABNORMAL) T3 Total (12/12/2023 12:47 PM EDT) T3, Total - External 175(H) EXTERNAL FACILITY Blood VENOUS BLOOD SPECIMEN / Unknown 12/12/2023 12:47 PM EDT Aydee Lemons MD CHEMISTRY ORDERABLE S Performing Organization Address City/[facility]/ZIP Co de Phone Number EXTERNAL FACILITY * (ABNORMAL) TSH (12/12/2023 12:47 PM EDT) TSH - External 0.069(L) EXTER NAL FACILITY Blood VENOUS BLOOD SPECIMEN / Unknown 12/12/2023 12:47 PM EDT Aydee Lemons MD CHEMISTRY ORDERABLE S Performing Organization Address [facility] de Phone Number EXTERNAL FACILITY * T4, free (12/12/2023 12:47 PM EDT) Free T4 - External 1.16 EXTERNAL FACILITY Blood VENOUS BLOOD SPECIMEN / Unknown 12/12/2023 12:47 PM EDT Aydee Lemons MD CHEMISTRY ORDERABLE S Performing Organization Address [facility] de Phone Number EXTERNAL FACILITY * T4 Total (12/12/2023 12:47 PM EDT) Pathologist [facility] Lab Result - External See Scanned Results EXTERNAL FACILITY Comment:T4 total - 10.6 (nor mal) Blood VENOUS BLOOD SPECIMEN / Unknown 12/12/2023 12:47 PM EDT Aydee Lemons MD CHEMISTRY ORDERABLE S Performing Organization Address [facility] de Phone Number EXTERNAL FACILITY * (ABNORMAL) Lipid Panel (Reflex Direct LDL) (12/12/2023 12:47 PM EDT) Cholesterol, Total - External 142 EXTERNAL FACILITY Triglycerides - External 54 EXTERNAL FACILITY HDL - External 61(H) EXTER NAL FACILITY LDL Cholesterol - External 70 EXTERNAL FACILITY Blood VENOUS BLOOD SPECIMEN / Unknown 12/12/2023 12:47 PM EDT Aydee Lemons MD CHEMISTRY ORDERABLE S Performing Organization Address [facility] de Phone Number EXTERNAL FACILITY * US Extremity Non Vascular Limited Right (Non-MSK) (12/02/2023 1:30 PM EDT) WORKSTATION ID [id number] RAD Anatomical Region Laterality Modality Ultrasound 12/02/2023 1:26 PM EDT Impressions 12/02/2023 2:16 PM EDT Small right inguinal hernia containing fat and a small amount of ascites fluid. Electronically signed by: Talita Layton MD, [facility] ([phone]), at 12/02/2023 2:09 PM Thank you for letting us participate in the care of this patient. If you are a health care provider and have any questions regarding this report, please contact the number above. For patients who have questions, please contact the health adult live in caregiver that requested your imaging first. ? Talita Layton, Staff Physician Electronically Signed Final Report ?? 12/02/2023 02:15 pm Narrative 12/02/2023 2:16 PM EDT Ultrasound Report ? (Signed Final 12/02/2023 02:15 pm) PATIENT INFO: ID #: ? [id number] ?: ??[birth year] (48 yrs)(M) Name: ? MONISHA HAYES ? Visit Date: 12/02/2023 01:26 pm PERFORMED BY: Attending: ?Calin SANCHEZ, Talita Naidu Performed By: ? Brenda Reyes RDMS Referred By: ?DONYA LAZO Location: ? [place] SERVICE(S) PROVIDED: UEXTLMTR - Extremity Limited Non Vascular - ? [id number] Right - [id number] INDICATIONS: new right sided inguinal bulge - [...] 12/02/2023 02:15 pm) PATIENT INFO: ID #: [id number] : [birth year] (48 yrs)(M) Name: MONISHA HAYES Visit Date: 12/02/2023 01:26 pm PERFORMED BY: Attending: Talita Layton MD Performed By: Brenda Reyes RDMS Referred By: DONYA LAZO Location: [place] SERVICE(S) PROVIDED: UEXTLMTR - Extremity Limited Non Vascular - [id number] Right - [id number] INDICATIONS: new right sided inguinal bulge - [...] fluid. Electronically signed by: Talita Layton MD, [facility] ([phone]), at 12/02/2023 2:09 PM Thank you for letting us participate in the care of this patient. If you are a health care provider and have any questions regarding this report, please contact the number above. For patients who have questions, please contact the health adult live in caregiver that requested your imaging first. Talita Layton, Staff Physician Electronically Signed Final Report 12/02/2023 02:15 pm Donya Lazo MD [facility] GEN ORDERAB LES * (ABNORMAL) TSH [place] (11/28/2023 11:11 AM EDT) [facility] Lab Result - External See Scanned Results EXTERNAL FACILITY Comment:T4 Free - 1.29 TSH - External 0.135(L) EXTER [facility] FACILITY Blood VENOUS BLOOD SPECIMEN / Unknown 11/28/2023 11:11 AM EDT Aydee Lemons MD CHEMISTRY ORDERABLE S EXTERNAL FACILITY * CRP, acute inflammation (11/28/2023 11:11 AM EDT) [facility] CRP - [facility]3 [facility] Blood VENOUS BLOOD SPECIMEN / Unknown 11/28/2023 11:11 AM EDT Aydee Lemons MD CHEMISTRY ORDERABLE S Performing Organization Address City/State/[facility] Co de Phone Number EXTERNAL FACILITY * Lactate, Whole Blood (11/28/2023 11:11 AM EDT) Pathologist [facility] Lab Result - External See Scanned Results EXTERNAL FACILITY Comment:Lactic Acid Lvl - 1. 2 Blood VENOUS BLOOD SPECIMEN / Unknown 11/28/2023 11:11 AM EDT Aydee Lemons MD CHEMISTRY ORDERABLE S Performing Organization Address City/[facility] Co de Phone Number EXTERNAL FACILITY * Prolactin (11/28/2023 11:11 AM EDT) Only the most recent of2 resultswithin the time period is included. Pathologist [facility] Lab Result - External See Scanned Results EXTERNAL FACILITY Comment:Prolactin - 9.6 Blood VENOUS BLOOD SPECIMEN / Unknown 11/28/2023 11:11 AM EDT Aydee Lemons MD CHEMISTRY ORDERABLE S Performing Organization Address [facility] de Phone Number EXTERNAL FACILITY * Sedimentation rate (11/28/2023 11:11 AM EDT) Pathologist [facility] Sed Rate - External 11 EXTERNAL FACILITY Blood VENOUS BLOOD SPECIMEN / Unknown 11/28/2023 11:11 AM EDT Aydee Lemons MD HEMATOLOGY ORDERABL ES Performing Organization Address [facility] Co de Phone Number EXTERNAL FACILITY * Uric acid (11/28/2023 11:11 AM EDT) Pathologist [facility] Uric Acid - External 4.5 EXTERNAL FACILITY Blood VENOUS BLOOD SPECIMEN / Unknown 11/28/2023 11:11 AM EDT Aydee Lemons MD CHEMISTRY ORDERABLE S Performing Organization Address City/[facility]/ZIP Co de Phone Number EXTERNAL FACILITY * Testosterone, total (11/28/2023 11:11 AM EDT) Testo Total - External 601 EXTERNAL FACILITY Blood VENOUS BLOOD SPECIMEN / Unknown 11/28/2023 11:11 AM EDT Aydee Lemons MD CHEMISTRY ORDERABLE S EXTERNAL FACILITY * (ABNORMAL) Luteinizing Hormone (11/28/2023 11:11 AM EDT) LH - External 12.6(H) RATE QUOTING OPERATOR AL FACILITY Blood VENOUS BLOOD SPECIMEN / Unknown 11/28/2023 11:11 AM EDT Aydee Lemons MD CHEMISTRY ORDERABLE S Performing Organization Address [facility]/ZIP Co de Phone Number EXTERNAL FACILITY * (ABNORMAL) Follicle Stimulating Hormone (11/28/2023 11:11 AM EDT) Pathologist [facility] FSH - External 31.2(H) EXTER NAL FACILITY Blood VENOUS BLOOD SPECIMEN / Unknown 11/28/2023 11:11 AM EDT Aydee Lemons MD CHEMISTRY ORDERABLE S Performing Organization Address [facility] Co de Phone Number EXTERNAL FACILITY * Scan Doc: Lab (11/28/2023 12:00 AM EDT) Narrative 11/28/2023 12:00 AM EDT Ordered by an unspecified provider. Scanning Provider MEDIA MGR SCAN EXT O RDR/RSLT * PTH (11/11/2023 4:28 PM EDT) Pathologist [facility] Parathyroid Hormone 15 15 - 65 pg/mL 11/11/2023 5:[address] [facility] Blood VENOUS BLOOD SPECIMEN / Unknown Venipuncture / Unknown 11/11/2023 4:28 PM EDT 11/11/2023 4:28 PM EDT Aydee Lemons MD CHEMISTRY ORDERABLE S [facility] [place] [address] * Iron and TIBC (11/11/2023 4:28 PM EDT) Iron 72 45 - 160 mcg/dL 11/11/2023 5:[address] [facility] TIBC 336 250 - 450 mcg/dL 11/11/2023 5:[address] [facility] Iron Saturation 21 20 - 50 % 5:[address] [facility] Blood VENOUS BLOOD SPECIMEN / Unknown Venipuncture / Unknown 11/11/2023 4:28 PM EDT 11/11/2023 4:28 PM EDT Aydee Lemons MD CHEMISTRY ORDERABLE S Performing Organization Address City/[facility]/ZIP Co de Phone Number [facility] [place] [address] * A1AT Serum Concentration (11/11/2023 4:28 PM EDT) Lkhfo-[id number] ypsin 195 90 - 200 mg/dL 11/11/2023 6:[address] [facility] Blood VENOUS BLOOD SPECIMEN / Unknown Venipuncture / Unknown 11/11/2023 4:28 PM EDT 11/11/2023 4:28 PM EDT Aydee Lemons MD CHEMISTRY ORDERABLE S [facility] [place] [address] * Vitamin D, 25-Hydroxy (11/11/2023 4:28 PM EDT) Vitamin D Total 25 OH 38 21 - 100 ng/ml 11/11/2023 5:[address] [facility] Vitamin D Total 25 OH Interp Sufficient 11/11/2023 5:[address] [facility] Blood VENOUS BLOOD SPECIMEN / Unknown Venipuncture / Unknown 11/11/2023 4:28 PM EDT 11/11/2023 4:28 PM EDT Aydee Lemons MD CHEMISTRY ORDERABLE S Performing Organization Address City/[facility]/ZIP Co de Phone Number [facility] [place] [address] * Vitamin B6 (11/11/2023 4:28 PM EDT) Pathologist [facility] PYRIDOXAL 5-PHOSPHATE (PLP) 12 5 - 50 mcg/L 11/18/2023 11:19 AM EDT [facility] [place] Comment: ADDITIONAL INFORMATION This test was developed and its performance characteristics determined by [facility] in a manner consistent with CLIA requirements. This test has not been cleared or approved by the U.S. Food and Drug Administration. Blood VENOUS BLOOD SPECIMEN / Unknown Venipuncture / Unknown 11/11/2023 4:28 PM EDT 11/11/2023 4:28 PM EDT Narrative [facility] [place] - 11/18/2023 11:19 AM EDT Test Performed by: [place] [address] Stockroom Keeper: Heladio Lizarraga Ph.D.; CLIA# [id number] Aydee Lemons MD LAB SEND OUT ORDERA BLES Performing Organization Address City/[facility]/ZIP Co de Phone Number REF LAB [address] * Phosphorus (11/11/2023 4:28 PM EDT) Pathologist [facility] Phosphorus 3.5 2.5 - 4.5 mg/dL 11/11/2023 5:[address] [facility] Blood VENOUS BLOOD SPECIMEN / Unknown Venipuncture / Unknown 11/11/2023 4:28 PM EDT 11/11/2023 4:28 PM EDT Aydee Lemons MD CHEMISTRY ORDERABLE S [facility] [place] [address] * Magnesium (11/11/2023 4:28 PM EDT) Magnesium 0.72 0.69 - 1.07 mMol/L 11/11/2023 5:[address] [facility] Blood VENOUS BLOOD SPECIMEN / Unknown Venipuncture / Unknown 11/11/2023 4:28 PM EDT 11/11/2023 4:28 PM EDT Aydee Lemons MD CHEMISTRY ORDERABLE S Performing Organization Address City/[facility]/ZIP Co de Phone Number [facility] [place] [address] * Folate, serum (11/11/2023 4:28 PM EDT) Folate 20.0 4.8 - 24.2 ng/ml 11/11/2023 5:[address] [facility] Blood VENOUS BLOOD SPECIMEN / Unknown Venipuncture / Unknown 11/11/2023 4:28 PM EDT 11/11/2023 4:28 PM EDT Aydee Lemons MD CHEMISTRY ORDERABLE S [facility] [place] [address] * Ferritin (11/11/2023 4:28 PM EDT) Ferritin 80 31 - 409 ng/ml 11/11/2023 5:[address] [facility] Blood VENOUS BLOOD SPECIMEN / Unknown Venipuncture / Unknown 11/11/2023 4:28 PM EDT 11/11/2023 4:28 PM EDT Aydee Lemons MD CHEMISTRY ORDERABLE S [facility] [place] [address] * Vitamin B12 (11/11/2023 4:28 PM EDT) Vitamin B12 794 232 - 1,245 pg/mL 11/11/2023 5:[address] [facility] Blood VENOUS BLOOD SPECIMEN / Unknown Venipuncture / Unknown 11/11/2023 4:28 PM EDT 11/11/2023 4:28 PM EDT Aydee Lemons MD CHEMISTRY ORDERABLE S [facility] [place] [address] * CK (11/11/2023 4:28 PM EDT) Creatine Kinase 50 0 - 200 unit/L 11/11/2023 5:[address] [facility] Blood VENOUS BLOOD SPECIMEN / Unknown Venipuncture / Unknown 11/11/2023 4:28 PM EDT 11/11/2023 4:28 PM EDT Aydee Lemons MD CHEMISTRY ORDERABLE S [facility] [place] [address] * (ABNORMAL) Prothrombin Time (11/09/2023 12:02 PM EDT) Prothrombin Time 14.5(H) 9.4 - 12.5 sec 11/09/2023 12:[address] [facility] International Normalization Ratio 1.3 <=4.9 11/09/2023 12:[address] [facility] Comment: An INR < 2.0 indicates adequate procoagulant activity for hemostasis in most patients without underlying bleeding disorders, though the INR may not adequately reflect hemostatic capacity in patients with liver disease and synthetic impairment. The recommended target INR range for therapeutic anticoagulation is 2.0 - 3.0 for most applications, though lower and higher ranges may be appropriate depending on clinical circumstances. Blood VENOUS BLOOD SPECIMEN / Unknown Venipuncture / Unknown 11/09/2023 12:02 PM EDT 11/09/2023 12:02 PM EDT Rocky Calvert BANKING SERVICES ADVISOR HEMATOLOGY ORDERAB LES [facility] [place] [address] * (ABNORMAL) CBC (with Diff) (11/09/2023 12:02 PM EDT) White Blood Cell 6.11 4.00 - 9.50 x10(3)/mc L 11/09/2023 12:[address] [facility] Red Blood Cell 4.62 4.58 - 5.54 x10(6)/mc L 11/09/2023 12:[address] [facility] Hemoglobin 13.6(L) 13.7 - 16.5 g/dL 11/09/2023 12:[address] [facility] Hematocrit 40.0(L) 40.5 - 48.5 % 11/09/2023 12:[address] [facility] Mean Cell Volume 86.6 82.9 - 93.1 fL 11/09/2023 12:[address] [facility] Mean Cell Hemoglobin 29.4 27.5 - 32.1 pg 11/09/2023 12:[address] [facility] Mean Cell Hemoglobin Concentration 34.0 32.0 - 35.7 g/dL 11/09/2023 12:[address] [facility] Platelet 141(L) 145 - 357 x10(3)/mc L 11/09/2023 12:[address] [facility] Mean Platelet Volume 9.8 7.6 - 12.9 fL 11/09/2023 12:[address] [facility] RDW Standard Deviation 49.5(H) 36.0 - 45.0 fL 11/09/2023 12:42 PM [facility] RDW coefficient of variation 15.8(H) 11.4 - 13.8 % 11/09/2023 12:42 PM [facility] NRBC% auto 0.0 % 11/09/2023 12:42 PM [facility] NRBC Absolute 0.00 0.00 - 0.00 x10(3)/mc L 11/09/2023 12:42 PM [facility] Neutrophil % 53.0 % 11/09/2023 12:42 PM [facility] Neutrophil Absolute (ANC) - Automated 3.24 1.70 - 6.10 x10(3)/mc L 11/09/2023 12:42 PM [facility] Lymph % 30.8 % 11/09/2023 12:42 PM [facility] Lymph Absolute 1.88 0.90 - 3.20 x10(3)/mc L 11/09/2023 12:42 PM [facility] Monocyte % 12.1 % 11/09/2023 12:42 PM [facility] Monocyte Absolute 0.74 0.30 - 0.90 x10(3)/mc L 11/09/2023 12:42 PM [facility] Eos % 2.9 % 11/09/2023 12:42 PM [facility] Eos Absolute 0.18 0.00 - 0.40 x10(3)/mc L 11/09/2023 12:42 PM [facility] Basophil % 0.7 % 11/09/2023 12:42 PM [facility] Baso Absolute 0.04 0.00 - 0.10 x10(3)/mc L 11/09/2023 12:42 PM [facility] Immature Gran % 0[facility]5 % [facility] Imm[facility] Gran Absolute 0.03 0.00 - 0.04 x10(3)/mc L 11/09/2023 12:[address] [facility] Blood VENOUS BLOOD SPECIMEN / Unknown Venipuncture / Unknown 11/09/2023 12:02 PM EDT 11/09/2023 12:02 PM EDT Rocky Calvert BANKING SERVICES ADVISOR HEMATOLOGY ORDERAB LES [facility] [place] [address] * (ABNORMAL) Comprehensive metabolic panel (non-fasting) (11/09/2023 12:02 PM EDT) Glucose 97 65 - 99 mg/dL 11/09/2023 1:[address] [facility] Comment: Fasting Glucose Interpretive Criteria: Normal: 65-99 mg/dL ?? Prediabetes: 100-125 mg/dL ?? Consistent with Diabetes Mellitus: > or = 126 mg/dL ?? Classification and Diagnosis of Diabetes: Standards of Care in Diabetes - 2022. Diabetes Care 202; 46:S19. Fasting is defined as no caloric intake for at least 8 hours. Blood Urea Nitrogen 9(L) 10 - 20 mg/dL 11/09/2023 1:[address] [facility] Creatinine 0.68(L) 0.80 - 1.50 mg/dL 11/09/2023 1:[address] [facility] Sodium 138 135 - 145 mMol/L 11/09/2023 1:[address] [facility] Potassium 4.3 3.5 - 5.0 mMol/L 11/09/2023 1:[address] [facility] Chloride 102 98 - 107 mMol/L 11/09/2023 1:[address] [facility] Carbon Dioxide 23 22 - 31 mMol/L 11/09/2023 1:[address] [facility] Anion Gap 13 5 - 15 mMol/L 11/09/2023 1:[address] [facility] Calcium 10.2 8.5 - 10.5 mg/dL 11/09/2023 1:11 PM [facility] Protein, Total 7.7 6.1 - 8.0 g/dL 11/09/2023 1:11 PM [facility] Albumin 4.3 3.2 - 5.2 g/dL 11/09/2023 1:11 PM [facility] Aspartate Aminotransferase 35 <=39 unit/L 11/09/2023 1:11 PM [facility] Alanine Aminotransferase 15 0 - 55 unit/L 11/09/2023 1:11 PM [facility] Alkaline Phosphatase 106 40 - 130 unit/L 11/09/2023 1:11 PM [facility] Bilirubin, Total 1.1 <=1.3 mg/dL 11/09/2023 1:11 PM [facility] Est Glomerular Filtration Rate - Male 114 mL/min/1. 73 m?? 11/09/2023 1:11 PM [facility] Comment: This patient's estimated GFR was calculated using the 2020 CKD-EPI equation. The estimated GFR can vary from the measured GFR by up to 30% in the absence of rapidly changing kidney function. Assessment of the estimated GFR is not appropriate when creatinine concentrations are rapidly changing. For clinical situations in which a more precise estimate of GFR is necessary, consider alternative methods of GFR estimation such as a 24-hour urine creatinine clearance. Assignment of CKD stage 1 - 5 for patients with an eGFR near the transition point between stages may be based on clinical assessment of muscle mass and symptoms in addition to eGFR. Link: eGFR Calculator [employer] Fasting Status Yes 11/09/2023 1:11 PM [facility] Blood VENOUS BLOOD SPECIMEN / Unknown Venipuncture / Unknown 11/09/2023 12:02 PM EDT 11/09/2023 12:02 PM EDT Rocky Calvert BANKING SERVICES ADVISOR CHEMISTRY ORDERABL ES [facility] [place] [address] * US Abdomen Limited Hepatology Protocol (11/09/2023 11:22 AM EDT) WORKSTATION ID [id number] RAD Anatomical Region Laterality Modality Abdomen Ultrasound 11/09/2023 11:2 0 AM EDT Impressions 11/09/2023 11:55 AM EDT 1. ??Coarse hepatic echogenicity, consistent with known cirrhosis. No focal hepatic lesions. 2. ??Patent main portal vein with normal directional flow. 3. ??Portal hypertension with mild splenomegaly and recanalized umbilical vein. No ascites. 4. ??Cholelithiasis without acute cholecystitis. No biliary ductal dilation. I have personally reviewed the image(s) and the resident's interpretation and agree with the findings, Orville Clark MD at 11/09/2023 11:48 AM Electronically signed by: Orville Clark MD, [facility] ([phone]), at 11/09/2023 11:48 AM Thank you for letting us participate in the care of this patient. If you are a health care provider and have any questions regarding this report, please contact the number above. For patients who have questions, please contact the health adult live in caregiver that requested your imaging first. ? Physician Millie Electronically Signed Final Report ?? 11/09/2023 11:54 am Narrative 11/09/2023 11:55 AM EDT Abdominal ? (Signed Final 11/09/2023 11:54 am) PATIENT INFO: ID #: ? [id number] ?: ??[birth year] (48 yrs)(M) Name: ? MONISHA HAYES ? Visit Date: 11/09/2023 11:20 am PERFORMED BY: Attending: ?Eduardo SANCHEZ, Orville Resident: ? Jackelyn Elliott MD Performed By: ? Eric [facility] Brenda Referred By: ?ROCKY CALVERT Location: ? [place] [facility] Hepatology Protocol - Abdominal ?[id number] Limited Survey Single Organ or Quadrant - [id number] INDICATIONS: cirrhosis COMPARISON: US abdomen limited hepatology vascular protocol 01/13/23 ------ LIVER: ------ Right Lobe Length: ?? 17.4 ?? cm Echogenicity/Echotexture: ?? Coarse echogenic heterogeneous ? parenchyma Comment: ?No focal hepatic mass seen. GALLBLADDER: Cholelithiasis: ?Multiple gallstones Wall Thickness: ?3.0 mm Focal Tenderness: ?Negative sonographic Oswald's sign BILIARY TRACT: Intrahepatic Ducts: ?? Normal Extrahepatic Ducts: ?? Normal Common Duct Size: ? 2.2 ? mm FLUID COLLECTIONS: Ascites not present on 4 quadrant evaluation. Procedure Note Orville Clark MD - 11/09/2023 Abdominal (Signed Final 11/09/2023 11:54 am) PATIENT INFO: ID #: [id number] : [birth year] (48 yrs)(M) Name: MONISHA HAYES Visit Date: 11/09/2023 11:20 am PERFORMED BY: Attending: Orville Clark MD Resident: Earl SANCHEZ Jackelyn Performed By: Brenda Reyes RDMS Referred By: ROCKY CALVERT Location: [place] SERVICE(S) PROVIDED: [facility] - Hepatology Protocol - Abdominal [id number] Limited Survey Single Organ or Quadrant - [id number] INDICATIONS: cirrhosis COMPARISON: US abdomen limited hepatology vascular protocol 01/13/23 ------ LIVER: ------ Right Lobe Length: 17.4 cm Echogenicity/Echotexture: Coarse echogenic heterogeneous parenchyma Comment: No focal hepatic mass seen. GALLBLADDER: Cholelithiasis: Multiple gallstones Wall Thickness: 3.0 mm Focal Tenderness: Negative sonographic Oswald's sign BILIARY TRACT: Intrahepatic Ducts: Normal Extrahepatic Ducts: Normal Common Duct Size: 2.2 mm FLUID COLLECTIONS: Ascites not present on 4 quadrant evaluation. IMPRESSION 1. Coarse hepatic echogenicity, consistent with known cirrhosis. No focal hepatic lesions. 2. Patent main portal vein with normal directional flow. 3. Portal hypertension with mild splenomegaly and recanalized umbilical vein. No ascites. 4. Cholelithiasis without acute cholecystitis. No biliary ductal dilation. I have personally reviewed the image(s) and the resident's interpretation and agree with the findings, Orville Clark MD at 11/09/2023 11:48 AM Electronically signed by: Orville Clark MD, [facility] ([phone]), at 11/09/2023 11:48 AM Thank you for letting us participate in the care of this patient. If you are a health care provider and have any questions regarding this report, please contact the number above. For patients who have questions, please contact the health adult live in caregiver that requested your imaging first. Orville Clark, Physician Electronically Signed Final Report 11/09/2023 11:54 am Rocky Calvert APRN IMG US GEN ORDERAB LES * COLONOSCOPY (05/16/2023 2:48 PM EDT) COLONOSCOPY [facility] Endoscopy Procedure Date: 05/16/2023 2:48 PM ? Patient Name: Monisha Hayes ? Date of : 1975 ? Age: 48 ? Order #: [id number] ? Instrument Name: [id number] ? Procedure: ? Colonoscopy Indications: ? Iron deficiency anemia Providers: ? Luis Antonio Mendoza MD, Tomas Sewell ? Linette Cantor Michael D. ? Ramu Referring : ?Monica Kuo Medicines: ? Monitored Anesthesia Care Complications: ? No immediate complications. Procedure: ? Pre-Anesthesia Assessment: ? - Prior to the procedure, a History ? and Physical was performed, and ? patient medications, allergies and ? sensitivities were reviewed. The ? patient's tolerance of previous ? anesthesia was reviewed. ? - The risks and benefits of the ? procedure and the sedation options ? and risks were discussed with the ? patient. All questions were ? answered and informed consent was ? obtained. ? - Patient identification and ? proposed procedure were verified ? prior to the procedure by the ? physician, the nurse, the ? lecturer of portuguese and the echo technician. The ? procedure was verified in the ? pre-procedure area in the endoscopy ? suite. ? - Pre-procedure physical ? examination revealed no ? contraindications to sedation. ? - ASA Grade Assessment: III - A ? patient with severe systemic ? disease. ? - After reviewing the risks and ? benefits, the patient was deemed in ? satisfactory condition to undergo ? the procedure. ? - Monitored anesthesia care under ? the supervision of a OFFICE EXECUTIVE was ? determined to be medically ? necessary for this procedure based ? on severe comorbidity (greater than ? ASA Grade II) and patient's history ? of problems with anesthesia. ? The procedure, indications, ? benefits, risks and alternatives ? were explained to the patient. ? Specifically discussed were ? potential complications including, ? but not limited to, bleeding, ? perforation, infection, missing a ? cancer, and adverse medication ? reactions. The patient was placed ? in the left lateral decubitus ? position, and a digital rectal exam ? was performed. The Colonoscope was ? inserted in the anus and under ? direct visualization, advanced to ? the terminal ileum. Careful ? inspection was made as the ? colonoscope was withdrawn. The ? colonoscopy was performed without ? difficulty. The patient tolerated ? the procedure well. The quality of ? the bowel preparation was evaluated ? using the BBPS ([place] Bowel ? Preparation Scale) with scores of: ? Right Colon = 2 (minor amount of ? residual staining, small fragments ? of stool and/or opaque liquid, but ? mucosa seen well), Transverse Colon ? = 2 (minor amount of residual ? staining, small fragments of stool ? and/or opaque liquid, but mucosa ? seen well) and Left Colon = 2 ? (minor amount of residual staining, ? small fragments of stool and/or ? opaque liquid, but mucosa seen ? well). The total BBPS score equals ? 6. The quality of the bowel ? preparation was good. The terminal ? ileum, ileocecal valve, appendiceal ? orifice, and rectum were ? photographed. Scope withdrawal time ? was 14 minutes. ? Findings: ? The terminal ileum appeared normal. ? A single large angioectasia without bleeding was ? found in the transverse colon. Coagulation for tissue ? destruction using argon plasma at 0.5 liters/minute ? and 20 wilhelm was successful. ? A single medium-sized angioectasia without bleeding ? was found in the descending colon. Coagulation for ? tissue destruction using argon plasma at 0.5 ? liters/minute and 20 wilhelm was successful. ? A single small angioectasia without bleeding was ? found in the sigmoid colon. Coagulation for tissue ? destruction using argon plasma at 0.5 liters/minute ? and 20 wilhelm was successful. ? Internal hemorrhoids were found during retroflexion. ? Moderate Sedation: ? See anesthesia notes. Impression: ?- 3 non-bleeding colonic ? angioectasias. Treated with APC ? given anemia. ? - Hemorrhoids. Recommendation: ?- Patient has a contact number ? available for emergencies. The ? signs and symptoms of potential ? delayed complications were ? discussed with the patient. Return ? to normal activities tomorrow. ? Written discharge instructions were ? provided to the patient. ? - Replete iron stores. ? - Monitor for overt GI bleeding. ? - Repeat average-risk colorectal ? cancer screening in 10 years. ? Attending Participation: ? I was present and participated during the entire ? procedure, including non-batres portions. ? Luis Antonio Mendoza MD 05/16/2023 4:12:45 PM This report has been signed electronically. Number of Addenda: 0 Note Initiated On: 05/16/2023 2:48 PM [employer] 05/16/2023 2:48 PM EDT Monica Kuo MD GENERAL SURGICAL ORDERABLES Performing Organization Address [facility] Co de Phone Number [employer]OVATION * Hepatitis C Antibody (01/25/2023 9:57 AM EST) Hepatitis C Antibody Negative Negative [facility] Blood 01/25/2023 9:57 AM EST 01/25/2023 1:22 PM EST Narrative Resulting Agency Comment Spec In Lab Alyson Phelps MD CHEMISTRY ORDERABLES Performing Organization Address City/[facility]/ZIP Co de Phone Number [facility] [place] [address] * HIV Screen, 4th Generation ([facility]/CGP/APD/[facility]H) (01/25/2023 9:57 AM EST) HIV Ab/Ag Screen Negative Negative [facility] Comment: This 4th Generation HIV test screens for the presence of the HIV-1 p24 antigen as well as antibodies reactive against HIV-1 and HIV-2. A negative screen does not rule out an acute HIV infection. If acute HIV infection is suspected, testing should be repeated in 2 - 3 weeks or HIV nucleic acid testing performed. HIV Comment Low Risk of HIV Infection [facility] Blood 01/25/2023 9:57 AM EST 01/25/2023 1:22 PM EST Narrative Resulting Agency Comment Spec In Lab Alyson Phelps MD CHEMISTRY ORDERABLES [facility] [place] [address] from Last 3 Months or Most Recently Relevant to Health Maintenance Advance Directives * Attempt Cardiopulmonary Resuscitation - Inpatient (Latest Code Status on File) Date Activated Date Inactivated Comments 01/11/2023 7:40 PM 01/13/2023 6:13 PM Question Answer Comments Code Status decision made by: Patient Care Teams Carrot Tier Relationship Specialty Start Date End Date Tonia Hauser PA [address] [place] [address] PCP - General Family Medicine 04/13/23
--- OUTSIDE RECORDS SUMMARY | 2023-12-26 11:39 | XMS_ITS | Encounter Summary ---
Author Organization Formerly [facility], Later [facility] [place] [address] Care Team Providers Care Wastewater Treatment Plant Attendant Name Role Phone Tonia Hauser Primary Care Provider [phone] Reason for Visit * Reason Comments Extremity Weakness Body Aches Extremity Weakness Encounter Details Date Type Department Care Team (Late st Contact Info) Description 11/11/2023 3:30 PM EDT Office Visit Family Medicine at [address] [place] [phone] Tonia Hauser PA [address] [place] [address] Polymyalgia (Primary Dx) Social History Tobacco Use Types Packs/Day Years Used Date Smoking Tobacco: Every Day Cigarettes Smokeless Tobacco: Never Comments:Started smoking at age 18 (1992) DENIES VAPING Alcohol Use Standard Drinks/Week Comments Not Currently 0 (1 standard drink = 0.6 oz pur e alcohol) none since Nov 2022 [facility] Utilities Answer Date Recorded In the past 12 months has [employer], gas, oil, or water [employer] threatened to shut off services in your [...] Sign Reading Time Taken Comments Blood Pressure 112/70 11/11/2023 3:18 PM EDT Pulse 82 11/11/2023 3:18 PM EDT Temperature 36.6 ??C (97.9 ??F) 11/11/2023 3:18 PM ED T Respiratory Rate - - Oxygen Saturation 99% 11/11/2023 3:18 PM EDT Inhaled Oxygen Concentration - - Weight 74.1 kg (163 lb 4.8 oz) 11/11/2023 3:18 P M EDT Height 175.3 cm (5' 9) 11/11/2023 3:18 PM EDT Body Mass Index 24.12 11/11/2023 3:18 PM EDT documented in this encounter Progress Notes * Tonia Hauser PA - 11/11/2023 3:30 PM EDT Shakir Sexton is a 48 y.o. male, patient of ROSALES Akins, presenting for Chief Complaint Patient presents with Extremity Weakness Body Aches Extremity Weakness . Subjective HPI: Details/additional concerns: Had checkup on Tuesday with Khloe (GI), did US, labs, everything looked good Feels okay Only concern is that he has joint and muscle pains x 1 year Feels like sometimes his hands are weak or they hurt. His feet will hurt and will be sensitive after walking for a bit, has tried different shoes, etc Does feel like it's improving over time. Also having sensitivity of the areolas only to touch. Denies discharge, itching, rash, pain, lumps,skin changes. ROS: See Subjective history Patient Active Problem List Diagnosis Code Alcoholic cirrhosis of liver with ascites K70.31 Acute GI bleeding K92.2 Prolonged Q-T interval on ECG R94.31 Hyponatremia E87.1 Cigarette smoker F17.210 End stage liver disease K72.10 *Severe alcohol use disorder F10.20 Current Outpatient Medications on File Prior to Visit Medication Sig Dispense Refill rifAXIMin (Xifaxan) 550 mg tablet Take 550 mg by mouth daily. furosemide (Lasix) 40 mg tablet TAKE ONE TABLET BY MOUTH EVERY DAY 90 tablet 3 folic acid (Vitamin B9) 1 mg tablet TAKE ONE TABLET BY MOUTH EVERY DAY 30 tablet 1 potassium chloride ER (Klor-Con, K-Tab) 10 mEq ER tablet Take 1 tablet by mouth daily. 90 tablet 3 multivitamin Fhaj-Ng-GI-Min (Therapeutic-M) 27-0.4 mg Tablet Take 1 tablet by mouth daily. 90 tablet 3 lactulose (Chronulac) 10 gram/15 mL Solution Take 30 mLs by mouth 3 times daily. Titrate to 3-4 bowel movements a day 1892 mL 3 spironolactone (Aldactone) 100 mg tablet Take 1 tablet by mouth daily. 30 tablet 11 No current facility-administered medications on file prior to visit. No Known Allergies Social History Socioeconomic History Marital status: Single Spouse name: Not on file Number of children: Not on file Years of education: Not on file Highest education level: Not on file Occupational History Not on file Tobacco Use Smoking status: Every Day Current packs/day: 1.50 Types: Cigarettes Smokeless tobacco: Never Tobacco comments: [...] Intimate Partner Violence: Not At Risk (01/11/2023) DH IPV Inpatient Questions Prevent Contact with Others: no Feels Threatened by Someone: no Feels Unsafe at Home: no Physical Signs of Abuse Present: no Housing Stability: Low Risk (03/15/2023) Housing Stability Vital Sign Unable to Pay for Housing in the Last Year: No Number of Places Lived in the Last Year: 1 Unstable Housing in the Last Year: No No family history on file. OBJECTIVE BP 112/70 (BP Location (NBP): Right arm, Patient Position: Sitting, BP Cuff Sizes: Adult (25-34 cm)) Pulse 82 Temp 36.6 ??C (97.9 ??F) (Temporal) Ht 175.3 cm (5' 9) Wt 74.1 kg (163 lb 4.8 oz) SpO2 99% BMI 24.12 kg/m?? Physical Exam Vitals reviewed. Constitutional: General: He is not in acute distress. Appearance: Normal appearance. HENT: Mouth/Throat: Mouth: Mucous membranes are moist. Pharynx: Oropharynx is clear. No oropharyngeal exudate. Eyes: General: Scleral icterus present. Extraocular Movements: Extraocular movements intact. Conjunctiva/sclera: Conjunctivae normal. Cardiovascular: Rate and Rhythm: Normal rate and regular rhythm. Heart sounds: Normal heart sounds. Pulmonary: Effort: Pulmonary effort is normal. Breath sounds: Normal breath sounds. Musculoskeletal: Right shoulder: No swelling, deformity or tenderness (patient reported pain when when lifting against resistence. No palpable tenderness or other tenderness elicited.). Decreased range of motion (with raising past ~105 degrees in all directions d/t to reported pain and weakness). Normal strength. Left shoulder: No swelling, deformity or tenderness (patient reported pain when when lifting against resistence. No palpable tenderness or other tenderness elicited.). Decreased range of motion (withraising past ~105 degrees in all directions d/t to reported pain and weakness). Normal strength. Right upper arm: Normal. Left upper arm: Normal. Right elbow: Normal. Left elbow: Normal. Right wrist: Normal. Left wrist: Normal. Right hand: Normal. Left hand: Decreased strength (decreased last ironer strength). Normal strength of finger abduction, thumb/finger opposition and wrist extension. Cervical back: Normal, normal range of motion and neck supple. No rigidity. Thoracic back: Normal. Lumbar back: Normal. Right knee: No swelling, deformity or erythema. Normal range of motion. Left knee: No swelling, deformity or erythema. Normal range of motion. Right lower leg: Normal. Left lower leg: Normal. Neurological: General: No focal deficit present. Mental Status: He is alert and oriented to person, place, and time. Mental status is at baseline. Cranial Nerves: Cranial nerves 2-12 are intact. Sensory: Sensation is intact. Motor: No weakness (strength 5/5 bilateral lower extremities, bilateral upper extremities except for left last ironer strength 4/5), tremor, atrophy or abnormal muscle tone. Coordination: Coordination is intact. Gait: Gait is intact. Gait normal. The ASCVD Risk score (Billy MARTINEZ, et al., 2019) failed to calculate for the following reasons: Cannot find a previous HDL lab Cannot find a previous total cholesterol lab ASSESSMENT & PLAN Shakir was seen today for extremity weakness. Diagnoses and all orders for this visit: Polymyalgia - Magnesium; Future - Phosphorus; Future - CK; Future - Iron and TIBC; Future - Ferritin; Future - A1AT Serum Concentration; Future - Vitamin D, 25-Hydroxy; Future - Vitamin B12; Future - Vitamin B6; Future - Folate, serum; Future - Prolactin; Future - PTH; Future Reports overall weakness and fatigue for the past year, though does feel it has been slowly improving Decreased left last ironer strength, some patient-reported pain with certain movements against resistance,but strength 5/5 otherwise Multiple comorbid conditions that could be causing/contributing to sxs Significant labs within past year: HIV - Hep c - EBV + SENTHIL - Stable anemia PT trending towards normal PTT normal Still on multivitamin but hanna not been doing extra dose of iron since told to stop a few months ago Repeat iron studies and CBC to monitor anemia CMP to monitor activity of preexisting liver disease which may be contributing Sensitive areolas - began since initiation of spironolactone. Will check prolactin Pending labs, most likely cause of overall muscle fatigue is history of deconditioning 2/2 severe malnutrition and alcoholic liver dysfunction Agrees to physical therapy - should go to a location closer to home for convenience. He will check out the clinics in his area and send me a message when he knows where he wants to go Okay to start an OTC QD Mg supplement Continue healthy diet Addendum: 11/13/2023 7:56 PM PRL mildly elevated at 15.5ng/mL per our lab's standards. Still below 20ng/mL. Could be 2/2 alcoholism but unclear how long this effect may last after drinking cessation; patienthas been sober now for about 1 year. Unlikely to be a prolactinoma. Repeat PRL with additional labs in about 2 weeks. Plan to move forward with PT in interim, upon receiving desired location from patient through portal. NOTICE: Note to patient: The Century Cures Act makes medical notes like these available to patients inthe interest of transparency. However, be advised this is a medical document. It is intended as peer to peer communication. It is written in medical language and may contain abbreviations or verbiagethat are unfamiliar. It may appear blunt or direct. Medical documents are intended to carry relevant information, facts as evident, and the clinical opinion of the practitioner or provider. In other words, this note is for medical documentation and is intended as inter- professional communication for the author and other medical office assistant. Any language used is strictly employed for this purpose. Thus, it may contain medical jargon, findings, diagnoses, or thoughts not explicitly discussed during the visit, and other words and observations that may not be expected or understood bythe patient. If there is ever a concern or question regarding the contents of a note, please do nothesitate to bring it to my or my department's attention. Total time on date of encounter was 38 minutes including the any of the following activities as necessary for completion of the visit: Preparing to see pt, review of tests Obtaining and/or reviewing separately obtained history (eg, outside records, caregiver) Counseling and educating the patient/family/caregiver Referring and communicating with other health field care coordinator Documenting clinical information in the electronic or other health record Independently interpreting results Care coordination ROSALES Mckeon 7:35 PM 11/13/2023 documented in this encounter Plan of Treatment Upcoming Encounters Date Type Department Care Team (Latest Contact Info) Description 02/01/2024 2:10 PM EST Hospital Encounter [place] [address] Franklin Ramirez MD [address] [place] [address] [place] [address] 02/01/2024 2:10 PM EST - 02/01/2024 4:50 PM EST [place] [address] Franklin Ramirez MD [address] [place] [address] [place] [address] REPAIR INGUINAL HERNIA, 5 YR OR OLDER, REDUCIBLE (WRVU 7.96) 03/05/2024 11:45 AM EST Office Visit General Surgery at [address] [address] Franklin Ramirez MD [address] [place] [address] [place] [address] Scheduled Procedures Name Priority Associated Diagnoses Date/Ti me REPAIR INGUINAL HERNIA, 5 YR OR OLDER, REDUCIBLE (WRVU 7.96) Right inguinal hernia 02/01/2024 2:10 PM EST MODIFIER MESH,BARD FLAT MESH Right inguinal hernia 02/01/2024 2:10 PM EST documented as of this encounter Results * PTH (11/11/2023 4:28 PM EDT) Parathyroid Hormone 15 15 - 65 pg/mL 11/11/2023 5:26 PM EDT [facility] Blood VENOUS BLOOD SPECIMEN / Unknown Venipuncture / Unknown 11/11/2023 4:28 PM EDT 11/11/2023 4:28 PM EDT Aydee Lemons MD CHEMISTRY ORDERABLE S [facility] [place] [address] * (ABNORMAL) Prolactin (11/11/2023 4:28 PM EDT) Prolactin 15.5(H) 4.0 - 15.2 ng/ml 11/11/2023 6:38 PM EDT [facility] Blood VENOUS BLOOD SPECIMEN / Unknown Venipuncture / Unknown 11/11/2023 4:28 PM EDT 11/11/2023 4:28 PM EDT Aydee Lemons MD CHEMISTRY ORDERABLE S [facility] [place] [address] * Folate, serum (11/11/2023 4:28 PM EDT) Folate 20.0 4.8 - 24.2 ng/ml 11/11/2023 5:40 PM EDT [facility] Blood VENOUS BLOOD SPECIMEN / Unknown Venipuncture / Unknown 11/11/2023 4:28 PM EDT 11/11/2023 4:28 PM EDT Aydee Lemons MD CHEMISTRY ORDERABLE S Performing Organization Address City/[facility]/ZIP Co de Phone Number [facility] [place] [address] * Vitamin B6 (11/11/2023 4:28 PM EDT) PYRIDOXAL 5-PHOSPHATE (PLP) 12 5 - 50 mcg/L 11/18/2023 11:19 AM EDT RE[facility] [place] Comment: ADDITIONAL INFORMATION This test was developed and its performance characteristics determined by [facility] in a manner consistent with CLIA requirements. This test has not been cleared or approved by the U.S. Food and Drug Administration. Blood VENOUS BLOOD SPECIMEN / Unknown Venipuncture / Unknown 11/11/2023 4:28 PM EDT 11/11/2023 4:28 PM EDT Narrative REF LAB [facility] 11/18/2023 11:19 AM EDT Test Performed by: [place] [address] Process Control Supervisor: Heladio Lizarraga Ph.D.; CLIA# [id number] Aydee Lemons MD LAB SEND OUT ORDERA BLES Performing Organization Address [facility] Co de Phone Number REF LAB [address] * Vitamin B12 (11/11/2023 4:28 PM EDT) Vitamin B12 794 232 - 1,245 pg/mL 11/11/2023 5:40 PM EDT [facility] Blood VENOUS BLOOD SPECIMEN / Unknown Venipuncture / Unknown 11/11/2023 4:28 PM EDT 11/11/2023 4:28 PM EDT Aydee Lemons MD CHEMISTRY ORDERABLE S [facility] [place] [address] * Vitamin D, 25-Hydroxy (11/11/2023 4:28 PM EDT) Vitamin D Total 25 OH 38 21 - 100 ng/ml 11/11/2023 5:40 PM EDT [facility] Vitamin D Total 25 OH Interp Sufficient 11/11/2023 5:40 PM EDT [facility] Blood VENOUS BLOOD SPECIMEN / Unknown Venipuncture / Unknown 11/11/2023 4:28 PM EDT 11/11/2023 4:28 PM EDT Aydee Lemons MD CHEMISTRY ORDERABLE S Performing Organization Address City/[facility]/ZIP Co de Phone Number [facility] [place] [address] * A1AT Serum Concentration (11/11/2023 4:28 PM EDT) Qynst-9-Wyqunc ypsin 195 90 - 200 mg/dL 11/11/2023 6:38 PM EDT [facility] Blood VENOUS BLOOD SPECIMEN / Unknown Venipuncture / Unknown 11/11/2023 4:28 PM EDT 11/11/2023 4:28 PM EDT Aydee Lemons MD CHEMISTRY ORDERABLE S [facility] [place] [address] * Ferritin (11/11/2023 4:28 PM EDT) Ferritin 80 31 - 409 ng/ml 11/11/2023 5:40 PM EDT [facility] Blood VENOUS BLOOD SPECIMEN / Unknown Venipuncture / Unknown 11/11/2023 4:28 PM EDT 11/11/2023 4:28 PM EDT Aydee Lemons MD CHEMISTRY ORDERABLE S [facility] [place] [address] * Iron and TIBC (11/11/2023 4:28 PM EDT) Iron 72 45 - 160 mcg/dL 11/11/2023 5:37 PM EDT [facility] TIBC 336 250 - 450 mcg/dL 11/11/2023 5:37 PM EDT [facility] Iron Saturation 21 20 - 50 % 5:37 PM EDT [facility] Blood VENOUS BLOOD SPECIMEN / Unknown Venipuncture / Unknown 11/11/2023 4:28 PM EDT 11/11/2023 4:28 PM EDT Aydee Lemons MD CHEMISTRY ORDERABLE S [facility] [place] [address] * CK (11/11/2023 4:28 PM EDT) Creatine Kinase 50 0 - 200 unit/L 11/11/2023 5:37 PM EDT [facility] Blood VENOUS BLOOD SPECIMEN / Unknown Venipuncture / Unknown 11/11/2023 4:28 PM EDT 11/11/2023 4:28 PM EDT Aydee Lemons MD CHEMISTRY ORDERABLE S [facility] [place] [address] * Phosphorus (11/11/2023 4:28 PM EDT) Phosphorus 3.5 2.5 - 4.5 mg/dL 11/11/2023 5:37 PM EDT [facility] Blood VENOUS BLOOD SPECIMEN / Unknown Venipuncture / Unknown 11/11/2023 4:28 PM EDT 11/11/2023 4:28 PM EDT Aydee Lemons MD CHEMISTRY ORDERABLE S [facility] [place] [address] * Magnesium (11/11/2023 4:28 PM EDT) Magnesium 0.72 0.69 - 1.07 mMol/L 11/11/2023 5:37 PM EDT [facility] Blood VENOUS BLOOD SPECIMEN / Unknown Venipuncture / Unknown 11/11/2023 4:28 PM EDT 11/11/2023 4:28 PM EDT Aydee Lemons MD CHEMISTRY ORDERABLE S Performing Organization Address City/[facility]/ZIP Co de Phone Number [facility] [place] [address] documented in this encounter Visit Diagnoses Diagnosis Polymyalgia- Primary Polymyalgia rheumatica Right inguinal hernia Inguinal hernia without mention of obstruction or gangrene, unilateral or unspecified, (not specified as recurrent) documented in this encounter Care Teams Wastewater Treatment Plant Attendant Relationship Specialty Start Date End Date Tonia Hauser PA [address] [place] [place] [address] PCP - General Family Medicine 04/13/23 documented as of this encounter
--- OUTSIDE RECORDS SUMMARY | 2023-12-26 11:39 | XMS_ITS | Encounter Summary ---
Author Organization Formerly [facility] Address [address] [facility] [place] [address] Care Team Providers Care Oilfield Plant And Field Operator Name Role Phone Tonia Hauser Primary Care Provider [phone] Encounter Details Date Type Department Care Team (Late Contact Info) Description 12/06/2023 Telephone Family Medicine at [address] [place] [phone] Charbel Lauren, RN Social History Tobacco Use Types Packs/Day Years Used Date Smoking Tobacco: Every Day Cigarettes Smokeless Tobacco: Never Comments:Started smoking at age 18 (1992) DENIES VAPING Alcohol Use Standard Drinks/Week Comments Not Currently 0 (1 standard drink = 0.6 oz pur e alcohol) none since Nov 2022 [facility] Utilities Answer Date Recorded In the [...] encounter Miscellaneous Notes * Telephone Encounter - Charbel Lauren RN - 12/06/2023 9:41 AM EDT Call to pt who verified full name and . Scheduled for THV at PCP request for lab result discussion. * Telephone Encounter - Charbel Lauren RN - 12/06/2023 9:41 AM EDT ----- Message from Tonia Hauser sent at 12/03/2023 1:15 PM EDT ----- Hi! Could we please make a telehealth visit to discuss these results? Patient does not need to comeall the way down into clinic. Just needs to inform us at the time of the visit that he is in [place]. Does not need to be on my telehealth-dedicated schedule. Can convert in normal available slot to telehealth for this if that works best for patient. Thanks! ----- Message ----- From: Nena Pisano CMA Sent: 11/29/2023 3:38 PM EDT To: ROSALES Akins documented in this encounter Plan of Treatment Upcoming Encounters Date Type Department Care Team (Latest Contact Info) Description 02/01/2024 2:10 PM EST Hospital Encounter [place] [address] Frankiln Ramirez MD [address] [place] [address] [place] [address] 02/01/2024 2:10 PM EST - 02/01/2024 4:50 PM EST Surgery [place] [phone] Franklin Ramirez MD [address] [place] [address] [place] [address] REPAIR INGUINAL HERNIA, 5 YR OR OLDER, REDUCIBLE (WRVU 7.96) 03/05/2024 11:45 AM EST Office Visit General Surgery at [address] [address] Franklin Ramirez MD [address] [place] [address] [place] [address] Scheduled Procedures Name Priority Associated Diagnoses Date/Ti il REPAIR INGUINAL HERNIA, 5 YR OR OLDER, REDUCIBLE (WRVU 7.96) Right inguinal hernia 02/01/2024 2:10 PM EST MODIFIER MESH,BARD FLAT MESH Right inguinal hernia 02/01/2024 2:10 PM EST documented as of this encounter Visit Diagnoses Not on filedocumented in this encounter Care Teams Oilfield Plant And Field Operator Relationship Specialty Start Date End Date Tonia Hauser PA [address] [place] [address] PCP - General Family Medicine 04/13/23 documented as of this encounter
--- OUTSIDE RECORDS SUMMARY | 2023-12-26 11:39 | XMS_ITS | Encounter Summary ---
Author Organization [facility] Address [facility] [place] [address] Care Team Providers Care Physical Therapist Assistant Name Role Phone Tawnya Mcarthur Primary Care Provider [phone] Encounter Details Date Type Department Care Team (Late st Contact Info) Description 12/08/2023 Telephone Family Medicine at [address] [place] [phone] Charbel Lauren, RN Social History Tobacco Use Types Packs/Day Years Used Date Smoking Tobacco: Every Day Cigarettes Smokeless Tobacco: Never Comments:Started smoking at age 18 (1992) DENIES VAPING Alcohol Use Standard Drinks/Week Comments Not Currently 0 (1 standard drink = 0.6 oz pur e alcohol) none since Nov 2022 [facility] Utilities Answer Date Recorded In [...] place to sleep or slept in a retirement (including now)? No 03/15/2023 DH IPV Inpatient [...] Telephone Encounter - Charbel Lauren RN - 12/08/2023 10:42 AM EDT Copied from [facility] #[id number]. Topic: Generic Non-Symptom Based - Generic Call >> Dec 08, 2023 9:31 AM Fabio Ferraro wrote: Reason: Discuss surgery PCP: TAWNYA MCARTHUR Reason for Call: Patient called stating that he has a hernia and that the surgeon is questioning doing the surgery do to his liver. Patient has a virtual visit on 12/12/23 to discuss labs which patient stated maybe the answer to possibly do surgery. Patient is wondering if he can include that discussion with his visit or if he needs an additional visit. Please call to advise. documented in this encounter Plan of Treatment Upcoming Encounters Date Type Department Care Team (Latest Contact Info) Description 02/01/2024 2:10 PM EST Hospital Encounter [place] [address] Franklin aRmirez MD [address] [place] [address] [place] [address] 02/01/2024 2:10 PM EST - 02/01/2024 4:50 PM EST [place] [phone] Franklin Ramirez MD [address] [place] [address] [place] [address] REPAIR INGUINAL HERNIA, 5 YR OR OLDER, REDUCIBLE (WRVU 7.96) 03/05/2024 11:45 AM EST Office Visit General Surgery at [facility] [address] [address] Franklin Ramirez MD [address] [place] [address] [place] [address] Scheduled Procedures Name Priority Associated Diagnoses Date/Ti me REPAIR INGUINAL HERNIA, 5 YR OR OLDER, REDUCIBLE (WRVU 7.96) Right inguinal hernia 02/01/2024 2:10 PM EST MODIFIER MESH,BARD FLAT MESH Right inguinal hernia 02/01/2024 2:10 PM EST documented as of this encounter Visit Diagnoses Not on filedocumented in this encounter Care Teams Physical Therapist Assistant Relationship Specialty Start Date End Date Tawnya Mcarthur PA [address] [place] [address] PCP - General Family Medicine 04/13/23 documented as of this encounter
--- OUTSIDE RECORDS SUMMARY | 2023-12-26 11:39 | XMS_ITS | Encounter Summary ---
Author Organization [facility] Address [address] [facility] [place] [address] Care Team Providers Care Tufting Machine Fixer Name Role Phone Tonia Hauser Primary Care Provider [phone] Encounter Details Date Type Department Care Team (Late st Contact Info) Description 12/14/2023 External Results Family Medicine at [facility] [address] [place] [phone] Nena Pisano, [facility] Healthcare maintenance; Low TSH level Social History Tobacco Use Types Packs/Day Years Used Date Smoking Tobacco: Every Day Cigarettes Smokeless Tobacco: Never Comments:Started smoking at age 18 (1992) DENIES VAPING Alcohol Use Standard Drinks/Week Comments Not Currently 0 (1 standard drink = 0.6 oz pur e alcohol) none since Nov 2022 [facility] Utilities Answer Date Recorded In the past [...] place to sleep or slept in a nursing home (including now)? No 03/15/2023 DH IPV [...] PM EST Hospital [place] [address] Franklin Ramirez MD [address] [place] [address] [place] [address] 02/01/2024 2:10 PM EST - 02/01/2024 4:50 PM EST [place] [phone] Franklin Ramirez MD [address] [place] [address] [place] [address] REPAIR INGUINAL HERNIA, 5 YR OR OLDER, REDUCIBLE (WRVU 7.96) 03/05/2024 11:45 AM EST Office Visit General Surgery at [facility] [address] [address] Franklin Ramirez MD [address] [place] [address] [place] [address] Scheduled Procedures Name Priority Associated Diagnoses Date/Ti [...] Routine 12/12/2023 12:47 PM EDT Healthcare maintenance documented in this encounter Results * Thyroglobulin Antibody (12/12/2023 12:47 PM EDT) Thyroglob Ab - External <15 EXTERNAL FACILITY Blood VENOUS BLOOD SPECIMEN / Unknown 12/12/2023 12:47 PM EDT Aydee Lemons MD LAB SEND OUT ORDERA BLES Performing Organization Address [facility] Co de Phone Number EXTERNAL FACILITY * T3, free (12/12/2023 12:47 PM EDT) T3, Free - External 5.2 EXTERNAL FACILITY Blood VENOUS BLOOD SPECIMEN / Unknown 12/12/2023 12:47 PM EDT Aydee Lemons MD CHEMISTRY ORDERABLE S Performing Organization Address [facility] de Phone Number EXTERNAL FACILITY * (ABNORMAL) T3 Total (12/12/2023 12:47 PM EDT) T3, Total - External 175(H) EXTERNAL FACILITY Blood VENOUS BLOOD SPECIMEN / Unknown 12/12/2023 12:47 PM EDT Aydee Lemons MD CHEMISTRY ORDERABLE S Performing Organization Address [facility] Co de Phone Number EXTERNAL FACILITY * (ABNORMAL) TSH (12/12/2023 12:47 PM EDT) TSH - External 0.069(L) EXTER NAL FACILITY Blood VENOUS BLOOD SPECIMEN / Unknown 12/12/2023 12:47 PM EDT Aydee Lemons MD CHEMISTRY ORDERABLE S Performing Organization Address [facility] Co de Phone Number EXTERNAL FACILITY * T4, free (12/12/2023 12:47 PM EDT) Free T4 - External 1.16 EXTERNAL FACILITY Blood VENOUS BLOOD SPECIMEN / Unknown 12/12/2023 12:47 PM EDT Aydee Lemons MD CHEMISTRY ORDERABLE S Performing Organization Address [facility] Co de Phone Number EXTERNAL FACILITY * T4 Total (12/12/2023 12:47 PM EDT) Misc Lab Result - External See Scanned Results EXTERNAL FACILITY Comment:T4 total - 10.6 (nor mal) Blood VENOUS BLOOD SPECIMEN / Unknown 12/12/2023 12:47 PM EDT Aydee Lemons MD CHEMISTRY ORDERABLE S EXTERNAL FACILITY * (ABNORMAL) Lipid Panel (Reflex [...] documented in this encounter Visit Diagnoses Diagnosis Healthcare maintenance Routine general medical examination at a health care facility Low TSH level Nonspecific abnormal results of thyroid function study Right inguinal hernia Inguinal hernia without mention of obstruction or gangrene, unilateral or unspecified, (not specified as recurrent) documented in this encounter Care Teams Tufting Machine Fixer Relationship Specialty Start Date End Date Tonia Hauser PA [address] [place] [address] PCP - General Family Medicine 04/13/23 documented as of this encounter
--- OUTSIDE RECORDS SUMMARY | 2023-12-26 11:39 | XMS_ITS | Encounter Summary ---
Author Organization [facility] Address [facility] [place] [address] Care Team Providers Care Multimedia Editor Name Role Phone Tonia Hauser Primary Care Provider [phone] Reason for Visit * Reason Onset Date Comments Extremity Weakness 11/10/2023 Complaining o f muscle weakness and pain Encounter Details Date Type Department Care Team (Late st Contact Info) Description 11/10/2023 Nurse Triage Family Medicine at [address] [place] [phone] Kylah Dow RN Extremity Weakness (Complaining of muscle weakness and pain) Social History Tobacco Use Types Packs/Day Years Used Date Smoking Tobacco: Every Day Cigarettes Smokeless Tobacco: Never Comments:Started smoking at age 18 (1992) DENIES VAPING Alcohol Use Standard Drinks/Week Comments Not Currently 0 (1 standard drink = 0.6 oz pur e alcohol) none since Nov 2022 [facility] Utilities Answer Date Recorded In the past 12 months has [employer], gas, oil, or water [employer] threatened to shut off services in your [...] place to sleep or slept in a long term (including now)? No 03/15/2023 DH IPV Inpatient [...] encounter Miscellaneous Notes * Telephone Encounter - Kylah Dow RN - 11/10/2023 9:02 AM EDT HOT CALL Reason for Call: Extremity Weakness (Complaining of muscle weakness and pain) Patient identified by Full Name and . Nursing Assessment: Symptom onset 1 year ago. More aware since Liver Cirrhosis under control. Wakes up daily with overall body aches involving both hands and fingers, feet, legs, upper arms. Once starts moving around 90% aches and pains are gone. Experiences muscle aching, intermittent sharp pains throughout day. Intensity waxes and wanes. Rates worst pain -9/10. Least pain rates 3-4/10. Movement makes aches worse. Rest makes it better. Both feet sensitive and painful to walk. Able to walk 3-4 hours before he needs to rest. Few months ago able to walk around for 20-30 minutes before he needed to rest. Intermittent feet tingling. No numbness. Both hands/fingers experiences similar aching, soreness and muscle weakness. Sometimes difficult toopen jars of bottles. Both upper arms feel achy and sore. Weaker - not able to lift at work or anything heavy at home. Nonumbness.. Denies fever/chills. No open wounds or drainage noted. No travel. No chest pain/SOB/Palpitations. No change in mental status. No aphasia, word searching, answering questions appropriately. Past medical history which may be related to reason for call: Alcoholic cirrhosis with ascites, Cigarette smoker, Severe alcohol use disorder - sober almost 1 year. Disposition: Clinic Appointment 11/11/23 at 1530. Patient care advice summary: Keep scheduled Clinic appointment 11/11/23 Call Clinic back if symptoms worsen or develops new symptoms. Worsening Symptoms: If the patient experiences any of the following, but not limited to, symptoms: chest pain, SOB, palpitations, change in LOC, aphasia, word searching, asymetrical smile, worst headache, change in vision, worsening numbing and tingling of extremities should seek care by: ED Patient/Caller Understanding of Information provided: yes Reason for Disposition Patient wants to be seen Protocols used: Muscle Aches and Body Pain-A-OH documented in this encounter Plan of Treatment Upcoming Encounters Date Type Department Care Team (Latest Contact Info) Description 02/01/2024 2:10 PM EST Hospital Encounter [place] [phone] Franklin Ramirez MD [address] [place] [address] [place] [address] 02/01/2024 2:10 PM EST - 02/01/2024 4:50 PM EST Surgery [place] [phone] Franklin Ramirez MD [address] [place] [address] [place] [address] REPAIR INGUINAL HERNIA, 5 YR OR OLDER, REDUCIBLE (WRVU 7.96) 03/05/2024 11:45 AM EST Office Visit General Surgery at [facility] [address] [phone] Franklin Ramirez MD [address] [place] [address] [place] [address] Scheduled Procedures Name Priority Associated Diagnoses Date/Ti me REPAIR INGUINAL HERNIA, 5 YR OR OLDER, REDUCIBLE (WRVU 7.96) Right inguinal hernia 02/01/2024 2:10 PM EST MODIFIER MESH,BARD FLAT MESH Right inguinal hernia 02/01/2024 2:10 PM EST documented as of this encounter Visit Diagnoses Not on filedocumented in this encounter Care Teams Multimedia Editor Relationship Specialty Start Date End Date Tonia Hauser PA [address] [place] [address] PCP - General Family Medicine 04/13/23 documented as of this encounter
--- OUTSIDE RECORDS SUMMARY | 2023-12-26 11:39 | XMS_ITS | Encounter Summary ---
Author Organization [facility] Address [facility] [place] [address] Care Team Providers Care Senior Data Scientist Name Role Phone Tonia Hauser Primary Care Provider [phone] Reason for Referral * E-Consultation (Routine) - Authorized Specialty Diagnoses / Procedures Referred By Contac t Referred To Contact Endocrinology Diagnoses Low TSH level High serum triiodothyronine (T3) Procedures eConsult to Endocrinology (Primary Care Use Only) Tonia Hauser PA [address] [place] [address] Referral ID Status Reason Start Date Expiration Date V isits Requested Visits Authorized [id number] Authorized 12/22/2023 12/21/2024 3 3 Encounter Details Date Type Department Care Team (Late st Contact Info) Description 12/22/2023 Orders Only Family Medicine at [address] [place] [address] Tonia Hauser PA [address] [place] [address] Low TSH level; High serum triiodothyronine (T3) Social History Tobacco Use Types Packs/Day Years Used Date Smoking Tobacco: Every Day Cigarettes Smokeless Tobacco: Never Comments:Started smoking at age 18 (1992) DENIES VAPING Alcohol Use Standard Drinks/Week Comments Not Currently 0 (1 standard drink = 0.6 oz pur e alcohol) none since Nov 2022 [facility] Utilities Answer Date Recorded In the [...] place to sleep or slept in a correction (including now)? No 03/15/2023 DH IPV Inpatient [...] PM EST Hospital Encounter [place] [address] Franklin Ramirez MD [address] [place] [address] [place] [address] 02/01/2024 2:10 PM EST - 02/01/2024 4:50 PM EST Surgery [place] [phone] Franklin Ramirez MD [address] [place] [address] [place] [address] REPAIR INGUINAL HERNIA, 5 YR OR OLDER, REDUCIBLE (WRVU 7.96) 03/05/2024 11:45 AM EST Office Visit General Surgery at [facility] [address] [address] Franklin Ramirez MD [address] [place] [address] [place] [address] Scheduled Procedures Name Priority Associated Diagnoses Date/Ti wi REPAIR INGUINAL HERNIA, 5 YR OR OLDER, REDUCIBLE (WRVU 7.96) Right inguinal hernia 02/01/2024 2:10 PM EST MODIFIER MESH,BARD FLAT MESH Right inguinal hernia 02/01/2024 2:10 PM EST documented as of this encounter Visit Diagnoses Diagnosis Low TSH level Nonspecific abnormal results of thyroid function study High serum triiodothyronine (T3) Right inguinal hernia Inguinal hernia without mention of obstruction or gangrene, unilateral or unspecified, (not specified as recurrent) documented in this encounter Care Teams Senior Data Scientist Relationship Specialty Start Date End Date Tonia Hauser PA [address] [place] [address] PCP - General Family Medicine 04/13/23 documented as of this encounter
--- OUTSIDE RECORDS SUMMARY | 2023-12-26 11:39 | XMS_ITS | Encounter Summary ---
Author Organization [facility] [place] [address] Care Team Providers Care Cylinder Dyer Name Role Phone Tonia Hauser Primary Care Provider [phone] Reason for Visit * Reason Onset Date Comments Medication Refill 11/20/2023 Encounter Details Date Type Department Care Team (Late st Contact Info) Description 11/20/2023 Refill Family Medicine at [address] [place] [phone] Tonia Hauser PA [address] [facility] [place] [address] Social History Tobacco Use Types Packs/Day Years Used Date Smoking Tobacco: Every Day Cigarettes Smokeless Tobacco: Never Comments:Started smoking at age 18 (1992) DENIES VAPING Alcohol Use Standard Drinks/Week Comments Not Currently 0 (1 standard drink = 0.6 oz pur e alcohol) none since Nov 2022 [facility] Utilities Answer Date Recorded In the past 12 months has [employer], [employer], oil, or water [employer] threatened to shut off services in your [...] PM EST Hospital Encounter [place] [address] Franklin Ramirez MD [address] [place] [address] [place] [address] 02/01/2024 2:10 PM EST - 02/01/2024 4:50 PM EST Surgery [place] [address] Franklin Ramirez MD [address] [place] [address] [place] [address] REPAIR INGUINAL HERNIA, 5 YR OR OLDER, REDUCIBLE (WRVU 7.96) 03/05/2024 11:45 AM EST Office Visit General Surgery at [address] [phone] Franklin Ramirez MD [address] [place] [address] [place] [address] Scheduled Procedures Name Priority Associated Diagnoses Date/Ti ak REPAIR INGUINAL HERNIA, 5 YR OR OLDER, REDUCIBLE (WRVU 7.96) Right inguinal hernia 02/01/2024 2:10 PM EST MODIFIER MESH,BARD FLAT MESH Right inguinal hernia 02/01/2024 2:10 PM EST documented as of this encounter Visit Diagnoses Not on filedocumented in this encounter Care Teams Cylinder Dyer Relationship Specialty Start Date End Date Tonia Hauser PA [address] [place] [address] PCP - General Family Medicine 04/13/23 documented as of this encounter
--- OUTSIDE RECORDS SUMMARY | 2023-12-26 11:39 | XMS_ITS | Encounter Summary ---
Author Organization [facility] Address [facility] [place] [address] Care Team Providers Care Spa Assistant Manager Name Role Phone Tonia Hauser Primary Care Provider [phone] Encounter Details Date Type Department Care Team (Latest Contact Info) Description 12/01/2023 Travel Social History Tobacco Use Types Packs/Day Years Used Date Smoking Tobacco: Every Day Cigarettes Smokeless Tobacco: Never Comments:Started smoking at age 18 (1992) DENIES VAPING Alcohol Use Standard Drinks/Week Comments Not Currently 0 (1 standard drink = 0.6 oz pur e alcohol) none since Nov 2022 [facility] Utilities Answer Date Recorded In the past 12 months has [employer], gas, oil, or water company threatened [...] place to sleep or slept in a detention (including now)? No 03/15/2023 DH IPV Inpatient [...] PM EST Hospital Encounter [place] [address] Franklin Ramirez MD [address] [place] [address] [place] [address] 02/01/2024 2:10 PM EST - 02/01/2024 4:50 PM EST Surgery [place] [phone] Franklin Ramirez MD [address] [place] [address] [place] [address] REPAIR INGUINAL HERNIA, 5 YR OR OLDER, REDUCIBLE (WRVU 7.96) 03/05/2024 11:45 AM EST Office Visit General Surgery at [facility] [address] [place] [address] Franklin Ramirez MD [address] [place] [address] [place] [address] Scheduled Procedures Name Priority Associated Diagnoses Date/Ti me REPAIR INGUINAL HERNIA, 5 YR OR OLDER, REDUCIBLE (WRVU 7.96) Right inguinal hernia 02/01/2024 2:10 PM EST MODIFIER MESH,BARD FLAT MESH Right inguinal hernia 02/01/2024 2:10 PM EST documented as of this encounter Visit Diagnoses Not on filedocumented in this encounter Care Teams Spa Assistant Manager Relationship Specialty Start Date End Date Tonia Hauser PA [address] [place] [address] PCP - General Family Medicine 04/13/23 documented as of this encounter
--- OUTSIDE RECORDS SUMMARY | 2023-12-26 11:39 | XMS_ITS | Encounter Summary ---
Author Organization [facility] Address [facility] [place] [address] Care Team Providers Care Carbon Sequestration Plant Operator Name Role Phone Tonia Hauser Primary Care Provider [phone] Encounter Details Date Type Department Care Team (Latest Contact Info) Description 12/02/2023 12:53 PM EDT - 12/02/2023 11:59 PM EDT Hospital [place] [phone] Ember Lazo MD [facility] [place] [address] Non-recurrent unilateral inguinal hernia without obstruction or gangrene Discharge Disposition: Home Social History Tobacco Use Types Packs/Day Years Used Date Smoking Tobacco: Every Day Cigarettes Smokeless Tobacco: Never Comments:Started smoking at age 18 (1992) DENIES VAPING Alcohol Use Standard Drinks/Week Comments Not Currently 0 (1 standard drink = 0.6 oz pur e alcohol) none since Nov 2022 [facility] Utilities Answer Date Recorded In the past 12 months has [employer], gas, oil, or water [employer] threatened to shut off services in your [...] place to sleep or slept in a custodial (including now)? No 03/15/2023 DH IPV Inpatient [...] AM EST documented as of this encounter Medications at Time of Discharge Medication Sig Dispensed Refills Start Date End Date Tab-A-Gonzalez Multivitamin w-iron 15 mg iron- 400 mcg Tablet Take 1 tablet by mouth Daily at Noon. 11/23/2023 folic acid (Vitamin B9) 1 mg tablet TAKE ONE TABLET BY MOUTH EVERY DAY 90 tablet 3 11/22/2023 rifAXIMin (Xifaxan) 550 mg tablet Take 550 mg by mouth daily. furosemide (Lasix) 40 mg tablet TAKE ONE TABLET BY MOUTH EVERY DAY 90 tablet 3 09/21/2023 potassium chloride ER (Klor-Con, K-Tab) 10 mEq ER tabletIndications:Hypok alemia Take 1 tablet by mouth daily. 90 tablet 3 04/12/2023 lactulose (Chronulac) 10 gram/15 mL Solution Take 30 mLs by mouth 3 times daily. Titrate to 3-4 bowel movements a day 1892 mL 3 03/16/2023 spironolactone (Aldactone) 100 mg tabletIndications:Alcoh olic cirrhosis of liver with ascites Take 1 tablet by mouth daily. 30 tablet 11 02/14/2023 multivitamin Bfgx-Id-BD-Min (Therapeutic-M) 27-0.4 mg Tablet Take 1 tablet by mouth daily. 90 tablet 3 03/16/2023 12/07/2023 documented as of this encounter Plan of Treatment Upcoming Encounters Date Type Department Care Team (Latest Contact Info) Description 02/01/2024 2:10 PM EST Hospital Encounter [place] [address] Franklin Ramirez MD [address] [place] [address] [place] [address] 02/01/2024 2:10 PM EST - 02/01/2024 4:50 PM EST Surgery [place] [address] Franklin Ramirez MD [address] [place] [address] [place] [address] REPAIR INGUINAL HERNIA, 5 YR OR OLDER, REDUCIBLE (WRVU 7.96) 03/05/2024 11:45 AM EST Office Visit General Surgery at [facility] [address] [address] Franklin Ramirez MD [address] [place] [address] [place] [address] Scheduled Procedures Name Priority Associated Diagnoses Date/Ti me REPAIR INGUINAL HERNIA, 5 YR OR OLDER, REDUCIBLE (WRVU 7.96) Right inguinal hernia 02/01/2024 2:10 PM EST MODIFIER MESH,BARD FLAT MESH Right inguinal hernia 02/01/2024 2:10 PM EST documented as of this encounter Procedures Procedure Name Priority Date/Time Associated Diagnosis Comments US EXTREMITY NON VASCULAR LIMITED ANATOMIC SPECIFIC RIGHT Routine 12/02/2023 1:30 PM EDT Non-recurrent unilateral inguinal hernia without obstruction or gangrene documented in this encounter Results * US Extremity Non Vascular Limited Right (Non-MSK) (12/02/2023 1:30 PM EDT) WORKSTATION ID [id number] [facility] Anatomical Region Laterality Modality Ultrasound 12/02/2023 1:26 PM EDT Impressions 12/02/2023 2:16 PM EDT Small right inguinal hernia containing fat and a small amount of ascites fluid. Thank you for letting us participate in the care of this patient. If you are a health care provider and have any questions regarding this report, please contact the number above. For patients who have questions, please contact the health child care supervisor that requested your imaging first. ? Talita Layton, Staff Physician Electronically Signed Final Report ?? 12/02/2023 02:15 pm Narrative 12/02/2023 2:16 PM EDT Ultrasound Report ? (Signed Final 12/02/2023 02:15 pm) PATIENT INFO: ID #: ? [id number] ?: ??[birth year] (48 yrs)(M) Name: ? MONISHA SEXTON ? Visit Date: 12/02/2023 01:26 pm PERFORMED BY: Attending: ?Calin SANCHEZ, Talita Naidu Performed By: ? Eric [facility] Referred By: ?EMBER LAZO Location: ? [place] SERVICE(S) PROVIDED: UEXTLMTR - Extremity Limited Non Vascular - ? [id number] Right - [id number] INDICATIONS: new right sided inguinal bulge - [...] 12/02/2023 02:15 pm) PATIENT INFO: ID #: [id number] : [birth year] (48 yrs)(M) Name: MONISHA SEXTON Visit Date: 12/02/2023 01:26 pm PERFORMED BY: Attending: Talita Layton MD Performed By: Brenda Reyes RDMS Referred By: EMBER LAZO Location: [place] SERVICE(S) PROVIDED: UEXTLMTR - Extremity Limited Non Vascular - 29392 Right - [id number] INDICATIONS: new right sided inguinal bulge - [...] and a small amount of ascites fluid. Thank you for letting us participate in the care of this patient. If you are a health care provider and have any questions regarding this report, please contact the number above. For patients who have questions, please contact the health child care supervisor that requested your imaging first. Talita Layton, Staff Physician Electronically Signed Final Report 12/02/2023 02:15 pm Ember Lazo MD IMG GEN ORDERAB LES documented in this encounter Visit Diagnoses Diagnosis Non-recurrent unilateral inguinal hernia without obstruction or gangrene Right inguinal hernia Inguinal hernia without mention of obstruction or gangrene, unilateral or unspecified, (not specified as recurrent) documented in this encounter Care Teams Carbon Sequestration Plant Operator Relationship Specialty Start Date End Date Tonia Hauser PA [address] [place] [place] [address] PCP - General Family Medicine 04/13/23 documented as of this encounter
--- OUTSIDE RECORDS SUMMARY | 2023-12-26 11:39 | XMS_ITS | Encounter Summary ---
Author Organization [facility] Address [facility] [place] [address] Care Team Providers Care Network Intelligence Analyst Name Role Phone Tonia Hauser Primary Care Provider [phone] Encounter Details Date Type Department Care Team (Latest Contact Info) Description 11/16/2023 Travel Social History Tobacco Use Types Packs/Day Years Used Date Smoking Tobacco: Every Day Cigarettes Smokeless Tobacco: Never Comments:Started smoking at age 18 (1992) DENIES VAPING Alcohol Use Standard Drinks/Week Comments Not Currently 0 (1 standard drink = 0.6 oz pur e alcohol) none since Nov 2022 [facility] Utilities Answer Date Recorded In the past 12 months has [employer], gas, oil, or water company threatened [...] PM EST Hospital Encounter [place] [address] Franklin Ramirez MD [address] [place] [address] [place] [address] 02/01/2024 2:10 PM EST - 02/01/2024 4:50 PM EST Surgery [place] [phone] Franklin Ramirez MD [address] [place] [address] [place] [address] REPAIR INGUINAL HERNIA, 5 YR OR OLDER, REDUCIBLE (WRVU 7.96) 03/05/2024 11:45 AM EST Office Visit General Surgery at [facility] [address] [place] [phone] Franklin Ramirez MD [address] [place] [address] [place] [address] Scheduled Procedures Name Priority Associated Diagnoses Date/Ti me REPAIR INGUINAL HERNIA, 5 YR OR OLDER, REDUCIBLE (WRVU 7.96) Right inguinal hernia 02/01/2024 2:10 PM EST MODIFIER MESH,BARD FLAT MESH Right inguinal hernia 02/01/2024 2:10 PM EST documented as of this encounter Visit Diagnoses Not on filedocumented in this encounter Care Teams Network Intelligence Analyst Relationship Specialty Start Date End Date Tonia Hauser PA [address] [place] [address] PCP - General Family Medicine 04/13/23 documented as of this encounter
--- OUTSIDE RECORDS SUMMARY | 2023-12-26 11:40 | XMS_ITS | Encounter Summary ---
Author Organization [facility] [place] [address] Care Team Providers Care Barge Pilot Name Role Phone Tonia Hauser Primary Care Provider [phone] Reason for Visit * Reason Onset Date Comments Medication Refill 05/11/2023 Encounter Details Date Type Department Care Team (Late st Contact Info) Description 05/11/2023 Refill Family Medicine at [address] [place] [phone] Tonia Hauser PA [address] [facility] [place] [address] Social History Tobacco Use Types Packs/Day Years Used Date Smoking Tobacco: Every Day Cigarettes 1.5 30 Smokeless Tobacco: Never Alcohol Use Standard Drinks/Week Comments Not Currently 0 (1 standard drink = 0.6 oz pur e alcohol) 03/15/23 16 weeks sober [facility] Utilities Answer Date Recorded In the past 12 months has [employer], oil, or water [employer] threatened to shut off services in your [...] encounter Miscellaneous Notes * Telephone Encounter - Faisal Oswald CMA - 05/13/2023 9:14 AM EST Prescription Renewal Request Name: Shakir Sexton : 1975 Prescription(s) Requested: Requested Prescriptions Pending Prescriptions Disp Refills folic acid (Vitamin B9) 1 mg tablet 30 tablet 1 Sig: Take 1 tablet by mouth daily. Date of Encounter last in This Dept (If need an appointment send to secretaries to schedule): 04/19/23 Next Encounter in This Dept: Visit date not found Date of Last Refill (for each medication): 03/16/23#30/ Medication category requirements (labs etc): na Status of request: Pended No Known Allergies Faisal Oswald CMA 05/13/23 9:14 AM documented in this encounter Plan of Treatment Upcoming Encounters Date Type Department Care Team (Latest Contact Info) Description 02/01/2024 2:10 PM EST Hospital Encounter [place] [address] Franklin Ramirez MD [address] [place] [address] [place] [address] 02/01/2024 2:10 PM EST - 02/01/2024 4:50 PM EST Surgery [place] [address] Franklin Ramirez MD [address] [place] [address] [place] [address] REPAIR INGUINAL HERNIA, 5 YR OR OLDER, REDUCIBLE (WRVU 7.96) 03/05/2024 11:45 AM EST Office Visit General Surgery at [address] [phone] Franklin Ramirez MD [address] [place] [address] [place] [address] Scheduled Procedures Name Priority Associated Diagnoses Date/Ti sd REPAIR INGUINAL HERNIA, 5 YR OR OLDER, REDUCIBLE (WRVU 7.96) Right inguinal hernia 02/01/2024 2:10 PM EST MODIFIER MESH,BARD FLAT MESH Right inguinal hernia 02/01/2024 2:10 PM EST documented as of this encounter Visit Diagnoses Not on filedocumented in this encounter Care Teams Barge Pilot Relationship Specialty Start Date End Date Tonia Hauser PA [address] [place] [address] PCP - General Family Medicine 04/13/23 documented as of this encounter
--- OUTSIDE RECORDS SUMMARY | 2023-12-26 11:40 | XMS_ITS | Encounter Summary ---
Author Organization [facility] Address [facility] [place] [address] Care Team Providers Care Club Room Attendant Name Role Phone Tonia Hauser Primary Care Provider [phone] Encounter Details Date Type Department Care Team (Late st Contact Info) Description 08/05/2023 Telephone Gastroenterology at [facility] [place] [address] Maki Enciso RN Social History Tobacco Use Types Packs/Day Years Used Date Smoking Tobacco: Every Day Cigarettes Smokeless Tobacco: Never Comments:Started smoking at age 18 (1992) DENIES VAPING Alcohol Use Standard Drinks/Week Comments Not Currently 0 (1 standard drink = 0.6 oz pur e alcohol) none since Nov 2022 [facility] Utilities Answer Date Recorded In [...] place to sleep or slept in a fci (including now)? No 03/15/2023 DH IPV Inpatient [...] encounter Miscellaneous Notes * Telephone Encounter - Maki Enciso RN - 08/05/2023 11:09 AM EDT Call placed to patient to advise per provider: I think he should continue xifaxan-let us know If it worsens. Make sure he is staying hydrated. Patient agrees with plan. * Telephone Encounter - Maki Enciso RN - 08/05/2023 9:02 AM EDT Received incoming call from patient who wished to discuss some medication questions. Shakir asked if he should continue on ferrous sulfate. He has taken x 90 days. If he should continue he will need a new prescription. In addition, Shakir has noticed muscle and joint pain in the evenings since starting Rifaximin. Patient states it's ok, but it does bother him. Will review with provider. documented in this encounter Plan of Treatment Upcoming Encounters Date Type Department Care Team (Latest Contact Info) Description 02/01/2024 2:10 PM EST Hospital Encounter Main [place] [address] Franklin Ramirez MD [address] [place] [address] [place] [address] 02/01/2024 2:10 PM EST - 02/01/2024 4:50 PM EST Surgery Main [place] [phone] Franklin Ramirez MD [address] [place] [address] REPAIR INGUINAL HERNIA, 5 YR OR OLDER, REDUCIBLE (WRVU 7.96) 03/05/2024 11:45 AM EST Office Visit General Surgery at [address] [phone] Franklin Ramirez MD [address] [place] [address] Scheduled Procedures Name Priority Associated Diagnoses Date/Ti ri REPAIR INGUINAL HERNIA, 5 YR OR OLDER, REDUCIBLE (WRVU 7.96) Right inguinal hernia 02/01/2024 2:10 PM EST MODIFIER MESH,BARD FLAT MESH Right inguinal hernia 02/01/2024 2:10 PM EST documented as of this encounter Visit Diagnoses Not on filedocumented in this encounter Care Teams Club Room Attendant Relationship Specialty Start Date End Date Tonia Hauser PA [address] [place] [place] [address] PCP - General Family Medicine 04/13/23 documented as of this encounter
--- OUTSIDE RECORDS SUMMARY | 2023-12-26 11:40 | XMS_ITS | Encounter Summary ---
Author Organization [facility] [place] [address] Care Team Providers Care Dispatch Associate Name Role Phone Tonia Hauser Primary Care Provider [phone] Reason for Visit * Reason Comments Medication Refill Encounter Details Date Type Department Care Team (Late Contact Info) Description 09/18/2023 Refill Family Medicine at [address] [place] [address] Tonia Hauser PA [address] [facility] [address] Social History Tobacco Use Types Packs/Day Years Used Date Smoking Tobacco: Every Day Cigarettes Smokeless Tobacco: Never Comments:Started smoking at age 18 (1992) DENIES VAPING Alcohol Use Standard Drinks/Week Comments Not Currently 0 (1 standard drink = 0.6 oz pur e alcohol) none since Nov 2022 [facility] Utilities Answer Date Recorded In the past 12 months has [employer], gas, oil, or water [employer] threatened to shut off services in your [...] PM EST Hospital Encounter [place] [address] Franklin Ramirez MD [address] [place] [address] [place] [address] 02/01/2024 2:10 PM EST - 02/01/2024 4:50 PM EST Surgery [place] [address] Franklin Rmairez MD [address] [place] [address] [place] [address] REPAIR INGUINAL HERNIA, 5 YR OR OLDER, REDUCIBLE (WRVU 7.96) 03/05/2024 11:45 AM EST Office Visit General Surgery at [address] [phone] Franklin Ramirez MD [address] [place] [address] [place] [address] Scheduled Procedures Name Priority Associated Diagnoses Date/Ti vt REPAIR INGUINAL HERNIA, 5 YR OR OLDER, REDUCIBLE (WRVU 7.96) Right inguinal hernia 02/01/2024 2:10 PM EST MODIFIER MESH,BARD FLAT MESH Right inguinal hernia 02/01/2024 2:10 PM EST documented as of this encounter Visit Diagnoses Not on filedocumented in this encounter Care Teams Dispatch Associate Relationship Specialty Start Date End Date Tonia Hauser PA [address] [place] [address] PCP - General Family Medicine 04/13/23 documented as of this encounter
--- OUTSIDE RECORDS SUMMARY | 2023-12-26 11:40 | XMS_ITS | Encounter Summary ---
Author Organization [facility] [place] [address] Care Team Providers Care Fish Grader Name Role Phone Tonia Hauser Primary Care Provider [phone] Reason for Visit * Reason Onset Date Comments Medication Refill 09/16/2023 Encounter Details Date Type Department Care Team (Late st Contact Info) Description 09/16/2023 Refill Family Medicine at [address] [place] [phone] Tonia Hauser PA [address] [facility] [place] [address] Social History Tobacco Use Types Packs/Day Years Used Date Smoking Tobacco: Every Day Cigarettes Smokeless Tobacco: Never Comments:Started smoking at age 18 (1992) DENIES VAPING Alcohol Use Standard Drinks/Week Comments Not Currently 0 (1 standard drink = 0.6 oz pur e alcohol) none since Nov 2022 [facility] Utilities Answer Date Recorded In the past 12 months has [employer], [employer], oil, or water [employer] threatened to shut off services in your [...] to sleep or slept in a senior living (including now)? No 03/15/2023 DH IPV Inpatient [...] PM EST Hospital Encounter [place] [address] Franklin Ramirez MD [address] [place] [address] [place] [address] 02/01/2024 2:10 PM EST - 02/01/2024 4:50 PM EST Surgery [place] [address] Franklin Ramirez MD [address] [place] [address] [place] [address] REPAIR INGUINAL HERNIA, 5 YR OR OLDER, REDUCIBLE (WRVU 7.96) 03/05/2024 11:45 AM EST Office Visit General Surgery at [address] [phone] Franklin Ramirez MD [address] [place] [address] [place] [address] Scheduled Procedures Name Priority Associated Diagnoses Date/Ti pa REPAIR INGUINAL HERNIA, 5 YR OR OLDER, REDUCIBLE (WRVU 7.96) Right inguinal hernia 02/01/2024 2:10 PM EST MODIFIER MESH,BARD FLAT MESH Right inguinal hernia 02/01/2024 2:10 PM EST documented as of this encounter Visit Diagnoses Not on filedocumented in this encounter Care Teams Fish Grader Relationship Specialty Start Date End Date Tonia Hauser PA [address] [place] [address] PCP - General Family Medicine 04/13/23 documented as of this encounter
--- OUTSIDE RECORDS SUMMARY | 2023-12-26 11:40 | XMS_ITS | Encounter Summary ---
Author Organization [facility] Address [facility] [place] [address] Care Team Providers Care Produce Department Supervisor Name Role Phone Tonia Hauser Primary Care Provider [phone] Encounter Details Date Type Department Care Team (Latest Contact Info) Description 11/09/2023 11:45 AM EDT Laboratory Appointment Lab 3L [facility] [place] [phone] Alcoholic cirrhosis of liver with ascites Social History Tobacco Use Types Packs/Day Years Used Date Smoking Tobacco: Every Day Cigarettes Smokeless Tobacco: Never Comments:Started smoking at age 18 (1992) DENIES VAPING Alcohol Use Standard Drinks/Week Comments Not Currently 0 (1 standard drink = 0.6 oz pur e alcohol) none since Nov 2022 [facility] Utilities Answer Date Recorded In the past [...] PM EST Hospital Encounter [place] [address] Franklin Ramirez MD [address] [place] [address] [place] [address] 02/01/2024 2:10 PM EST - 02/01/2024 4:50 PM EST Surgery [place] [phone] Franklin Ramirez MD [address] [place] [address] [place] [address] REPAIR INGUINAL HERNIA, 5 YR OR OLDER, REDUCIBLE (WRVU 7.96) 03/05/2024 11:45 AM EST Office Visit General Surgery at [facility] [address] [phone] Franklin Ramirez MD [address] [place] [address] [place] [address] Scheduled Procedures Name Priority Associated Diagnoses Date/Ti me REPAIR INGUINAL HERNIA, 5 YR OR OLDER, REDUCIBLE (WRVU 7.96) Right inguinal hernia 02/01/2024 2:10 PM EST MODIFIER MESH,BARD FLAT MESH Right inguinal hernia 02/01/2024 2:10 PM EST documented as of this encounter Procedures Procedure Name Priority Date/Time Associated Diagnosis Comments PROTHROMBIN TIME Routine 11/09/2023 12:0 2 PM EDT Alcoholic cirrhosis of liver with ascites CBC (WITH DIFF) Routine 11/09/2023 12:02 PM EDT Alcoholic cirrhosis of liver with ascites COMPREHENSIVE METABOLIC PANEL Routine 11/09/2023 12:02 PM EDT Alcoholic cirrhosis of liver with ascites documented in this encounter Results * (ABNORMAL) Prothrombin Time (11/09/2023 12:02 PM EDT) Prothrombin Time 14.5(H) 9.4 - 12.5 sec 11/09/2023 12:55 PM EDT [facility] International Normalization Ratio 1.3 <=4.9 11/09/2023 12:55 PM EDT [facility] Comment: An INR < 2.0 [...] 12:02 PM EDT 11/09/2023 12:02 PM EDT Khloe Calvert OPTOMETRY ASSISTANT HEMATOLOGY ORDERAB LES [facility] [place] [address] * (ABNORMAL) Comprehensive metabolic panel (non-fasting) (11/09/2023 12:02 PM EDT) Pathologist [facility] Glucose 97 65 - 99 mg/dL 11/09/2023 1:11 PM EDT [facility] Comment: Fasting Glucose Interpretive Criteria: [...] - 20 mg/dL 11/09/2023 1:11 PM EDT [facility] Creatinine 0.68(L) 0.80 - 1.50 mg/dL 11/09/2023 1:11 PM EDT [facility] Sodium 138 135 - 145 mMol/L 11/09/2023 1:11 PM EDT [facility] Potassium 4.3 3.5 - 5.0 mMol/L 11/09/2023 1:11 PM EDT [facility] Chloride 102 98 - 107 mMol/L 11/09/2023 1:11 PM EDT [facility] Carbon Dioxide 23 22 - 31 mMol/L 11/09/2023 1:11 PM EDT [facility] Anion Gap 13 5 - 15 mMol/L 11/09/2023 1:11 PM EDT [facility] Calcium 10.2 8.5 - 10.5 mg/dL 11/09/2023 1:11 PM EDT [facility] Protein, Total 7.7 6.1 - 8.0 g/dL 11/09/2023 1:11 PM EDT [facility] Albumin 4.3 3.2 - 5.2 g/dL 11/09/2023 1:11 PM EDT [facility] Aspartate Aminotransferase 35 <=39 unit/L 11/09/2023 1:11 PM EDT [facility] Alanine Aminotransferase 15 0 - 55 unit/L 11/09/2023 1:11 PM EDT [facility] Alkaline Phosphatase 106 40 - 130 unit/L 11/09/2023 1:11 PM EDT [facility] Bilirubin, Total 1.1 <=1.3 mg/dL 11/09/2023 1:11 PM EDT [facility] Est Glomerular Filtration Rate - Male 114 mL/min/1. 73 m?? 11/09/2023 1:11 PM EDT [facility] Comment: This patient's estimated GFR [...] Foundation Fasting Status Yes 11/09/2023 1:11 PM EDT [facility] Blood VENOUS BLOOD SPECIMEN / Unknown Venipuncture / Unknown 11/09/2023 12:02 PM EDT 11/09/2023 12:02 PM EDT Khloe Calvert OPTOMETRY ASSISTANT CHEMISTRY ORDERABL ES [facility] [place] [address] * (ABNORMAL) CBC (with Diff) (11/09/2023 12:02 PM EDT) White Blood Cell 6.11 4.00 - 9.50 x10(3)/mc L 11/09/2023 12:42 PM [facility] Red Blood Cell 4.62 4.58 - 5.54 x10(6)/mc L 11/09/2023 12:42 PM [facility] Hemoglobin 13.6(L) 13.7 - 16.5 g/dL 11/09/2023 12:42 PM [facility] Hematocrit 40.0(L) 40.5 - 48.5 % 11/09/2023 12:42 PM [facility] Mean Cell Volume 86.6 82.9 - 93.1 fL 11/09/2023 12:42 PM [facility] Mean Cell Hemoglobin 29.4 27.5 - 32.1 pg 11/09/2023 12:42 PM [facility] Mean Cell Hemoglobin Concentration 34.0 32.0 - 35.7 g/dL 11/09/2023 12:42 PM [facility] Platelet 141(L) 145 - 357 x10(3)/mc L 11/09/2023 12:42 PM [facility] Mean Platelet Volume 9.8 7.6 - 12.9 fL 11/09/2023 12:42 PM [facility] RDW Standard Deviation 49.5(H) 36.0 - 45.0 fL 11/09/2023 12:42 PM [facility] RDW coefficient of variation 15.8(H) 11.4 - 13.8 % 11/09/2023 12:42 PM [facility] NRBC% auto 0.0 % 11/09/2023 12:42 PM [facility] NRBC Absolute 0.00 0.00 - 0.00 x10(3)/mc L 11/09/2023 12:42 PM [facility] Neutrophil % 53.0 % 11/09/2023 12:42 PM [facility] Neutrophil Absolute (ANC) - Automated 3.24 1.70 - 6.10 x10(3)/mc L 11/09/2023 12:42 PM EDT [facility] Lymph % 30.8 % 11/09/2023 12:42 PM EDT [facility] Lymph Absolute 1.88 0.90 - 3.20 x10(3)/mc L 11/09/2023 12:42 PM EDT [facility] Monocyte % 12.1 % 11/09/2023 12:42 PM EDT [facility] Monocyte Absolute 0.74 0.30 - 0.90 x10(3)/mc L 11/09/2023 12:42 PM EDT [facility] Eos % 2.9 % 11/09/2023 12:42 PM EDT [facility] Eos Absolute 0.18 0.00 - 0.40 x10(3)/mc L 11/09/2023 12:42 PM EDT [facility] Basophil % 0.7 % 11/09/2023 12:42 PM EDT [facility] Baso Absolute 0.04 0.00 - 0.10 x10(3)/mc L 11/09/2023 12:42 PM EDT [facility] Immature Gran % 0.5 % 12:42 PM EDT [facility] Immature Gran Absolute 0.03 0.00 - 0.04 x10(3)/mc L 11/09/2023 12:42 PM EDT [facility] Blood VENOUS BLOOD SPECIMEN / Unknown Venipuncture / Unknown 11/09/2023 12:02 PM EDT 11/09/2023 12:02 PM EDT Khloe Calvert OPTOMETRY ASSISTANT HEMATOLOGY ORDERAB LES [facility] [address] documented in this encounter Visit Diagnoses Diagnosis Alcoholic cirrhosis of liver with ascites Alcoholic cirrhosis of liver Right inguinal hernia Inguinal hernia without mention of obstruction or gangrene, unilateral or unspecified, (not specified as recurrent) documented in this encounter Care Teams Produce Department Supervisor Relationship Specialty Start Date End Date Tonia Hauser PA [address] [place] [address] PCP - General Family Medicine 04/13/23 documented as of this encounter
--- OUTSIDE RECORDS SUMMARY | 2023-12-26 11:40 | XMS_ITS | Encounter Summary ---
Author Organization [facility] Address [facility] [place] [address] Care Team Providers Care Stockroom Supervisor Name Role Phone Tonia Hauser Primary Care Provider [phone] Encounter Details Date Type Department Care Team (Late st Contact Info) Description 05/16/2023 3:03 PM EDT Anesthesia [place] [address] Haja Hernandez MD [facility] [place] [address] Kylah Kidd CRNA [facility] [place] [address] Anesthesia Record Procedure Summary Procedure Name Responsible Anesthesiologist Anesthesia Start Time Anesthesia Stop Time EGD WITH BIOPSY (WRVU 2.39) (Trunk) Haja Hernandez MD 05/16/23 1503 05/16/23 1556 Events Date Time Event Comment 05/16/2023 1427 1503 Start 1507 AN Verify 1508 An Start Data 1510 An Induction 1512 Anesthesia Ready 1513 Procedure Start 1550 an stop data 1556 Recovery or ICU Handoff Rosalie ent care was transferred to the destination unit staff after review of the patient's medical history, current anesthetic/surgical status and plan, according to the Provider Handoff Checklist. 1556 Stop Meds Name Total Propofol 350 mg Propofol INF 339.2 mg lactated ringers infusion 0 mL * Agents Name O2 Air N2O O2 Auxiliary Flowmeter 1 * Blood No blood administrations on file. Lines, Drains, and Airways Type Details Placement Removal Incision 01/12/23; 1520; Left ; epigastrium; non-laparascopic puncture; L paracentesis site 01/12/23 1520 by Mary Rodrigues RN PIV 05/16/23; 1334; urco-iiw-jmpyiz catheter system; 22 gauge; metacarpal vein (top of hand), right; debi vu rn; distraction, tolerated well, appears comfortable; 05/16/23; 1630 05/16/23 1334 by Ramila Aranda RN 05/16/23 1630 by Diana English RN documented in this encounter Social History Tobacco Use Types Packs/Day Years Used Date Smoking Tobacco: Every Day Cigarettes Smokeless Tobacco: Never Comments:Started smoking at age 18 (1992) DENIES VAPING Alcohol Use Standard Drinks/Week Comments Not Currently 0 (1 standard drink = 0.6 oz pur e alcohol) none since Nov 2022 [facility] Utilities Answer Date Recorded In the past 12 months has e [employer], [employer], oil, or water [employer] threatened to shut off services in your [...] AM EST documented as of this encounter OR Notes * Anesthesia Postprocedure Evaluation - Haja Hernandez MD - 05/16/2023 4:05 PM EDT Department of Anesthesiology Post-procedure Note Patient: Shakir Sexton Procedure Summary Date: 05/16/23 Room / Location: [facility] Anesthesia Start: 1503 Anesthesia Stop: 1556 Procedures: EGD WITH BIOPSY (WRVU 2.39) (Trunk) COLONOSCOPY; W ABLATION TUMOR/POLYP/LESION (WRVU 4.88) (Trunk) Diagnosis: Alcoholic cirrhosis of liver with ascites (Follow up Grade D esophagitis, small varices-known cirrhosis. [place] for COCO.) Surgeons: Luis Antonio Mendoza MD Responsible Provider: Haja Hernandez MD Anesthesia Type: MAC ASA Status: 3 All Anesthesia Providers: Anesthesiologist: Haja Hernandez MD; Jermaine Ariza MD TAPE MAKER: Kylah Kidd CRNA Vitals Value Taken Time BP 101/64 05/16/23 1600 Temp Pulse Resp SpO2 100 % 05/16/23 1604 Pain Level Vitals shown include unfiled device data. Patient Location: PACU/[facility] Level of Consciousness: Conscious but Sleepy Pain Management: Satisfactory Analgesia PONV: None Cardiovascular Status: At Baseline Respiratory Status: At Baseline Postoperative Fluid Status: Intravascular EUvolemia Possible Anesthetic Complications: NONE apparent at time of evaluation Final Primary Anesthesia Type: MAC (The anesthetic type performed was the same as planned.) Comments: * Anesthesia Preprocedure Evaluation - Jermaine Ariza MD - 05/16/2023 1:44 PM EDT Images from the original note were not included. Pre-Anesthesia Evaluation for: Shakir Sexton a 48 y.o. male. Procedure(s): EGD, UPPER GI ENDOSCOPY (WRVU 2.09) COLONOSCOPY, DIAGNOSTIC (WRVU 3.26) Patient Active Problem List Diagnosis Date Noted ??? End stage liver disease 03/15/2023 ??? *Severe alcohol use disorder 03/15/2023 ??? Prolonged Q-T interval on ECG 01/23/2023 ??? Hyponatremia 01/23/2023 ??? Cigarette smoker 01/23/2023 ??? Alcoholic cirrhosis of liver with ascites 01/11/2023 ??? Acute GI bleeding 01/11/2023 No past medical history on file. Past Surgical History: Procedure Laterality Date ??? PRO UPPER GI ENDOSCOPY, DIAGNOSTIC N/A 01/11/2023 EGD, UPPER GI ENDOSCOPY (WRVU 2.09) performed by Rehan Matta MD at [facility] Social History Tobacco Use ??? Smoking status: Every Day Packs/day: 1.5 Types: Cigarettes ??? Smokeless tobacco: Never ??? Tobacco comments: Started smoking at age 18 (1992) DENIES VAPING Substance Use Topics ??? Alcohol use: Not Currently Comment: none since Nov 2022 Social History Substance and Sexual Activity Drug Use Yes ??? Types: Marijuana Comment: multiple times daily No Known Allergies Medications: MAR and/or home medications have been reviewed. Physical Exam: Preprocedure Vitals Current as of 05/16/23 1344 BP: 112/75 Pulse: 82 Resp: SpO2: 97 Temp: 36.5 ??C (97.7 ??F) Height: 175.3 cm (5' 9) (05/16/23) Weight: 70.3 kg (155 lb) (05/16/23) BMI: 22.89 IBW: 70.7 kg (155 lb 15.1 oz) Last edited 05/16/23 1331 by CG Airway Assessment: Mallampati: II TM distance: >3 FB Neck ROM: full Cardiovascular Assessment: Rate: abnormal PE comment: Sinus Tachy Pulmonary Assessment: pulmonary exam normal Dental Assessment: Comment: Poor dentition Misc Assessment: Patient is wearing No contact(s). IV access: Peripheral line Last Filed Perioperative Cognitive Screening None Anesthesia Plan: ASA 3 MAC, with a(n) intravenous induction Shakir Sexton is a 48 y.o. male who presents for EGD PMH: etoh cirrhosis w/ ascites and ESLD, GIB (underwent emergent EGD for coffee ground emesis in 01/2023; small esoph varices noted, here today for repeat surveillance EGD. Doing much better, not drinking currently, on Iron replacement for chronic anemia. Feeling well, more energy/active. No recentillnesses, no current n/v. Anesth Hx: RSI for EGD in 01/2023, grd 1 view. METS > 4, denies card/pulm hx or symptoms. Labs: 04/22/23 01/25/23 01/24/23 1512 0957 1616 WBC 5.7 3.3* 2.8* HGB 8.3* 9.9* 10.1* HCT 25.2* 29.7* 29.7* PLATELET 148 212 190 04/22/23 01/24/23 01/13/23 1512 1616 0130 NA 132* 127* 129* K 3.9 3.1* 3.2* CL 102 91* 96* CO2 * 24 25 BUN 16 8* 17 CREATININE 0.52* 0.58* 0.55* 04/22/23 01/24/23 01/13/23 01/12/23 1512 1616 0130 0208 AST 41* 34 31 32 ALT 21 17 11 10 ALKPHOS 110 104 67 68 BILITOT 1.3 5.2* 4.8* 7.5* BILIDIR -- 2.1* 2.3* 2.1* No results for input(s): PT, INR, PTT in the last 168 hours. Lab Results Component Value Date ABORH O Pos 01/11/2023 Pt is appropriately NPO Anesthetic Plan MAC Standard ASA monitors, IV access Region - Other Informed Consent: Anesthetic plan and risks discussed with patient. Anesthesia Screening documented in this encounter Plan of Treatment Upcoming Encounters Date Type Department Care Team (Latest Contact Info) Description 02/01/2024 2:10 PM EST Hospital Encounter [place] [address] Franklin Ramirez MD [address] [place] [address] [place] [address] 02/01/2024 2:10 PM EST - 02/01/2024 4:50 PM EST Surgery [place] [address] Franklin Ramirez MD [address] [place] [address] REPAIR INGUINAL HERNIA, 5 YR OR OLDER, REDUCIBLE (WRVU 7.96) 03/05/2024 11:45 AM EST Office Visit General Surgery at [address] [address] Franklin Ramirez MD [address] [place] [address] [place] [address] Scheduled Procedures Name Priority Associated Diagnoses Date/Ti pa REPAIR INGUINAL HERNIA, 5 YR OR OLDER, REDUCIBLE (WRVU 7.96) Right inguinal hernia 02/01/2024 2:10 PM EST MODIFIER MESH,BARD FLAT MESH Right inguinal hernia 02/01/2024 2:10 PM EST documented as of this encounter Visit Diagnoses Not on filedocumented in this encounter Administered Medications Inactive Administered Medications - up to 3 most recent administrations Medication Order MAR Action Action Date Dose Rate Site lactated ringers infusion 100 mL/hr, Intravenous, CONTINUOUS, Starting on Tue05/16/23 at 1345, Until Tue05/16/23 at 1633, Endoscopy (Day of Procedure) Rate/Dose Change 05/16/2023 3:49 PM EDT 600 mL/hr New Bag 05/16/2023 1:34 PM EDT 100 mL/hr 100 mL/hr propofoL (Diprivan) (10 mg/mL) infusion Intravenous, CONTINUOUS PRN, Starting on Tue05/16/23 at 1510, Until Tue05/16/23 at 1558, Anesthesia Intra-op, Routine Rate/Dose Change 05/16/2023 3:28 PM EDT 125 mcg/kg/min 52.725 mL/hr Rate/Dose Change 05/16/2023 3:20 PM EDT 150 mcg/kg/min 63. 27 mL/hr New Bag 05/16/2023 3:10 PM EDT 100 mcg/kg/min 42.18 mL/ hr propofoL (Diprivan) 10 mg/mL bolus injection (Anesthesia) Intravenous, PRN, Starting on Tue05/16/23 at 1510, Until Tue05/16/23 at 1558, Anesthesia Intra-op Given 05/16/2023 3:40 PM EDT 50 mg Given 05/16/2023 3:20 PM EDT 50 mg Given 05/16/2023 3:13 PM EDT 50 mg documented in this encounter Care Teams Stockroom Supervisor Relationship Specialty Start Date End Date Tonia Hauser PA [address] [place] [address] PCP - General Family Medicine 04/13/23 documented as of this encounter
--- OUTSIDE RECORDS SUMMARY | 2023-12-26 11:40 | XMS_ITS | Encounter Summary ---
Author Organization [facility] Address [facility] [place] [address] Care Team Providers Care Electric Refrigerator Preparer Name Role Phone Tonia Hauser Primary Care Provider [phone] Encounter Details Date Type Department Care Team (Late st Contact Info) Description 05/02/2023 Telephone Gastroenterology at [facility] [place] [address] Diana Luther Social History Tobacco Use Types Packs/Day Years Used Date Smoking Tobacco: Every Day Cigarettes 1.5 30 Smokeless Tobacco: Never Alcohol Use Standard Drinks/Week Comments Not Currently 0 (1 standard drink = 0.6 oz pur e alcohol) 03/15/23 16 weeks sober [facility] Utilities Answer Date Recorded In the past 12 months has [employer], gas, oil, or water company threatened [...] place to sleep or slept in a penitentiary (including now)? No 03/15/2023 IPV Inpatient Questions [...] encounter Miscellaneous Notes * Telephone Encounter - Diana Luther - 05/02/2023 10:21 AM EST Shakir Sexton [id number] Diagnosis/Indication: Follow up Grade D esophagitis, small varices-known cirrhosis. [place] for COCO Please review patient chart to confirm if previous Endoscopy procedure was performed within system. If yes, take note of Anesthesia type used. If previous procedure found, and with MAC/propofol Anesthesia support was used, schedule this procedure with Anesthesia and skip the Anesthesia portion of questions. If not performed within system, not performed at all, or performed with IVCS, ask Anesthesia questions. SCHEDULING QUESTIONS (ask all patient these questions) Have you ever had a/an Upper Endoscopy & Colonoscopy before? Yes: Date Egd 01/11/23 If yes, did you have any problems with the procedure (such as waking up during the procedure, pain or difficulties afterwards, etc.)? No What type of sedation was used: General Anesthesia (ASK ONLY FOR COLONOSCOPY PROCEDURES) Are you aware, or have you ever been told that you had a poor prep or failed prep with a previous colonoscopy? No If yes, assign the Extended MiraLAX Prep (ASK ONLY FOR COLONOSCOPY PROCEDURES) Do you have an ongoing history of constipation? (E.g., hard stools, >2 days without a bowel movement, straining or difficulty passing stool) No If yes, assign the Extended MiraLAX Prep Do you take any blood thinners or have you been diagnosed with a bleeding disorder that increases your risk of bleeding with procedures? No Do you have a Pacemaker or Defibrillator device? If yes, send pool message to Cardiology with patient information and date or procedure. No Do you have diabetes? If yes, call PCP/managing provider to discuss use of prep and any questions or concerns related to. No If yes, assign the Extended MiraLAX Prep Do you take any iron supplements or vitamins that contain iron? Yes multi or iron Do you have a preference regarding the gender of your provider? No ANESTHESIA QUESTIONS (YES to any question, please book with Anesthesia support) Have you ever been diagnosed with Pulmonary Hypertension and/or Congential Heart Disease? No Have you been diagnosed with A-Fib (atrial fibrillation) that is NOT being well controled with medications? No Have you ever had an allergic or adverse reaction to Fentanyl or Versed? No Have you had a problem with sedation or anesthesia? (Waking up during procedure, extreme confusion after, etc.) No Do you have a diagnosis of Obstructive Sleep Apnea that requires the use of a c- pap machine? No Do you use an oxygen tank at home? No Do you use a rescue inhaler more than twice per day? (COPD, severe asthma) No Do you experience breathing problems when you lay flat for a period of time? No Do you regularly take prescription opioid pain medications on a daily basis? (Includes oxycodone, Percocet, Suboxone, methadone, etc.) No If yes, assign the Extended MiraLAX Prep SCHEDULING CONFIRMATIONS: Please note any and all parts of your conversation with the patient here. We offer all new patients an opportunity to have an appointment with one of our associate care providers to learn more about your upcoming procedure, ask questions and get answers. These appointmentsare offered via telehealth. Would you be interested in scheduling this appointment? (Only ask if NEW referral patient; skip this question if [facility] provider ordered the procedure.) No Is there any other information or concerns you would like to us to share with your care team in relation to your upcoming scheduled procedure? No You must have a responsible green party who will drive you to your procedure, stay on campus for the entire duration of your procedure, and drive you home from your procedure. Who will likely be your xm1 tank driver for the procedure? *Please Verify the height and weight, and adjust if height and/or weight have changed* Estimated body mass index is 22.81 kg/m?? as calculated from the following: Height as of 04/22/23: 174.6 cm (5' 8.74). Weight as of 04/22/23: 69.5 kg (153 lb 4.8 oz). *Patient must be scheduled for Anesthesia support if BMI is 40 or above* Age:48 y.o. documented in this encounter Plan of Treatment Upcoming Encounters Date Type Department Care Team (Latest Contact Info) Description 02/01/2024 2:10 PM EST Hospital Encounter [place] [address] Franklin Ramirez MD [address] [place] [address] [place] [address] 02/01/2024 2:10 PM EST - 02/01/2024 4:50 PM EST Surgery [place] [address] Franklin Ramirez MD [address] [place] [address] [place] [address] REPAIR INGUINAL HERNIA, 5 YR OR OLDER, REDUCIBLE (WRVU 7.96) 03/05/2024 11:45 AM EST Office Visit General Surgery at [address] [address] Franklin Ramirez MD [address] [place] [address] Scheduled Procedures Name Priority Associated Diagnoses Date/Ti me REPAIR INGUINAL HERNIA, 5 YR OR OLDER, REDUCIBLE (WRVU 7.96) Right inguinal hernia 02/01/2024 2:10 PM EST MODIFIER MESH,BARD FLAT MESH Right inguinal hernia 02/01/2024 2:10 PM EST documented as of this encounter Visit Diagnoses Not on filedocumented in this encounter Care Teams Electric Refrigerator Preparer Relationship Specialty Start Date End Date Tonia Hauser PA [address] [place] [address] PCP - General Family Medicine 04/13/23 documented as of this encounter
--- OUTSIDE RECORDS SUMMARY | 2023-12-26 11:40 | XMS_ITS | Encounter Summary ---
Author Organization [facility] [place] [address] Care Team Providers Care Restorative Art Embalmer Name Role Phone Tonia Hauser Primary Care Provider [phone] Reason for Visit * Reason Comments Medication Refill Encounter Details Date Type Department Care Team (Late Contact Info) Description 09/16/2023 Refill Family Medicine at [address] [place] [address] Tonia Hauser PA [address] AT [facility] [place] [address] Social History Tobacco Use Types Packs/Day Years Used Date Smoking Tobacco: Every Day Cigarettes Smokeless Tobacco: Never Comments:Started smoking at age 18 (1992) DENIES VAPING Alcohol Use Standard Drinks/Week Comments Not Currently 0 (1 standard drink = 0.6 oz pur e alcohol) none since Nov 2022 [facility] Utilities Answer Date Recorded In the past 12 months has [employer], gas, oil, or water [employer] threatened to shut off services in your [...] place to sleep or slept in a fpc (including now)? No 03/15/2023 DH IPV Inpatient [...] * Telephone Encounter - Alo Ayanna Alvarado [facility] - 09/19/2023 10:22 AM EDT Prescription Renewal Request Name: Shakir Sexton : 1975 Prescription(s) Requested: Requested Prescriptions Pending Prescriptions Disp Refills folic acid (Vitamin B9) 1 mg tablet [Pharmacy Med Name: FOLIC ACID 1 MG TABLET] 30 tablet 1 Sig: TAKE ONE TABLET BY MOUTH EVERY DAY Date of Encounter last in This Dept (If need an appointment send to secretaries to schedule): 04/19/23 Next Encounter in This Dept: Visit date not found Date of Last Refill (for each medication): 07/19/23 Medication category requirements (labs etc): n/a Status of request: Pended No Known Allergies Ayanna Prajapati CMA 09/19/23 10:22 AM documented in this encounter Plan of Treatment Upcoming Encounters Date Type Department Care Team (Latest Contact Info) Description 02/01/2024 2:10 PM EST Hospital Encounter [place] [address] Franklin Ramirez MD [address] [place] [address] [place] [address] 02/01/2024 2:10 PM EST - 02/01/2024 4:50 PM EST Surgery [place] [address] Franklin Ramirez MD [address] [place] [address] REPAIR INGUINAL HERNIA, 5 YR OR OLDER, REDUCIBLE (WRVU 7.96) 03/05/2024 11:45 AM EST Office Visit General Surgery at [address] [address] Franklin Ramirez MD [address] [place] [address] [place] [address] Scheduled Procedures Name Priority Associated Diagnoses Date/Ti in REPAIR INGUINAL HERNIA, 5 YR OR OLDER, REDUCIBLE (WRVU 7.96) Right inguinal hernia 02/01/2024 2:10 PM EST MODIFIER MESH,BARD FLAT MESH Right inguinal hernia 02/01/2024 2:10 PM EST documented as of this encounter Visit Diagnoses Not on filedocumented in this encounter Care Teams Restorative Art Embalmer Relationship Specialty Start Date End Date Tonia Hauser PA [address] [place] [address] PCP - General Family Medicine 04/13/23 documented as of this encounter
--- OUTSIDE RECORDS SUMMARY | 2023-12-26 11:40 | XMS_ITS | Encounter Summary ---
Author Organization [facility] [place] [address] Care Team Providers Care Coordinator Cardiopulmonary Services Name Role Phone Tonia Hauser Primary Care Provider [phone] Reason for Visit * Reason Onset Date Comments Medication Refill 06/07/2023 Encounter Details Date Type Department Care Team (Late st Contact Info) Description 06/07/2023 Refill Family Medicine at [address] [place] [address] [place] [address] Social History Tobacco Use Types Packs/Day Years Used Date Smoking Tobacco: Every Day Cigarettes Smokeless Tobacco: Never Comments:Started smoking at age 18 (1992) DENIES VAPING Alcohol Use Standard Drinks/Week Comments Not Currently 0 (1 standard drink = 0.6 oz pur e alcohol) none since Nov 2022 [facility] Utilities Answer Date Recorded In the past 12 months has [employer], [employer], oil, or water [employer] threatened to shut off services in your [...] encounter Miscellaneous Notes * Telephone Encounter - Inocencia Kat LPN - 06/07/2023 12:23 PM EDT Prescription Renewal Request Name: Shakir Sexton : 1975 Prescription(s) Requested: Requested Prescriptions Pending Prescriptions Disp Refills furosemide (Lasix) 40 mg tablet 30 tablet 3 Sig: Take 1 tablet by mouth daily. Date of Encounter last in This Dept (If need an appointment send to secretaries to schedule):04/19/22 with PCP Next Encounter in This Dept: Visit date not found Date of Last Refill (for each medication): 01/13/23 #40/3 Medication category requirements (labs etc): Lab Results Component Value Date NA 132 (L) 04/22/2023 K 3.9 04/22/2023 CL 102 04/22/2023 CO2 21 (L) 04/22/2023 BUN 16 04/22/2023 CREATININE 0.52 (L) 04/22/2023 GLUCOSE 118 04/22/2023 CALCIUM 9.1 04/22/2023 ESTGFR 124 04/22/2023 Status of request: Pended No Known Allergies Inocencia Kat RN 06/07/23 12:23 PM documented in this encounter Plan of Treatment Upcoming Encounters Date Type Department Care Team (Latest Contact Info) Description 02/01/2024 2:10 PM EST Hospital Encounter [place] [address] Franklin Ramirez MD [address] [place] [place] [address] [place] [address] 02/01/2024 2:10 PM EST - 02/01/2024 4:50 PM EST Surgery [place] [address] Franklin Ramirez MD [address] [place] [place] [address] [place] [address] REPAIR INGUINAL HERNIA, 5 YR OR OLDER, REDUCIBLE (WRVU 7.96) 03/05/2024 11:45 AM EST Office Visit General Surgery at [address] [phone] Franklin Ramirez MD [address] [place] [place] [address] [place] [address] Scheduled Procedures Name Priority Associated Diagnoses Date/Ti tx REPAIR INGUINAL HERNIA, 5 YR OR OLDER, REDUCIBLE (WRVU 7.96) Right inguinal hernia 02/01/2024 2:10 PM EST MODIFIER MESH,BARD FLAT MESH Right inguinal hernia 02/01/2024 2:10 PM EST documented as of this encounter Visit Diagnoses Not on filedocumented in this encounter Care Teams Coordinator Cardiopulmonary Services Relationship Specialty Start Date End Date Tonia Hauser PA [address] [place] [address] PCP - General Family Medicine 04/13/23 documented as of this encounter
--- OUTSIDE RECORDS SUMMARY | 2023-12-26 11:40 | XMS_ITS | Encounter Summary ---
Author Organization [facility] Address [facility] [place] [address] Care Team Providers Care Bsw Name Role Phone Tonia Hauser Primary Care Provider [phone] Encounter Details Date Type Department Care Team (Late st Contact Info) Description 04/22/2023 3:10 PM EST Laboratory Appointment Lab 3L [facility] [place] [phone] Social History Tobacco Use Types Packs/Day Years Used Date Smoking Tobacco: Every Day Cigarettes 1.5 30 Smokeless Tobacco: Never Alcohol Use Standard Drinks/Week Comments Not Currently 0 (1 standard drink = 0.6 oz pur e alcohol) 03/15/23 16 weeks sober [facility] Utilities Answer Date Recorded In [...] PM EST Hospital Encounter [place] [phone] Franklin Ramirez MD [address] [place] [address] [place] [address] 02/01/2024 2:10 PM EST - 02/01/2024 4:50 PM EST Surgery [place] [phone] Franklin Ramirez MD [address] [place] [address] [place] [address] REPAIR INGUINAL HERNIA, 5 YR OR OLDER, REDUCIBLE (WRVU 7.96) 03/05/2024 11:45 AM EST Office Visit General Surgery at [facility] [address] [place] [phone] Franklin Ramirez MD [address] [place] [address] [place] [address] Scheduled Procedures Name Priority Associated Diagnoses Date/Ti nm REPAIR INGUINAL HERNIA, 5 YR OR OLDER, REDUCIBLE (WRVU 7.96) Right inguinal hernia 02/01/2024 2:10 PM EST MODIFIER MESH,BARD FLAT MESH Right inguinal hernia 02/01/2024 2:10 PM EST documented as of this encounter Visit Diagnoses Not on filedocumented in this encounter Care Teams Bsw Relationship Specialty Start Date End Date Tonia Hauser PA [address] [place] [address] PCP - General Family Medicine 04/13/23 documented as of this encounter
--- OUTSIDE RECORDS SUMMARY | 2023-12-26 11:40 | XMS_ITS | Encounter Summary ---
Author Organization [facility] Address [facility] [place] [address] Care Team Providers Care Registered Nurse Float Pool Name Role Phone Tonia Hauser Primary Care Provider [phone] Encounter Details Date Type Department Care Team (Latest Contact Info) Description 11/09/2023 1:30 PM EDT Office Visit [place] [phone] Khloe Calvert APRN [facility] [place] [address] Alcoholic cirrhosis of liver with ascites; Hepatic encephalopathy Social History Tobacco Use Types Packs/Day Years Used Date Smoking Tobacco: Every Day Cigarettes Smokeless Tobacco: Never Comments:Started smoking at age 18 (1992) DENIES VAPING Alcohol Use Standard Drinks/Week Comments Not Currently 0 (1 standard drink = 0.6 oz pur e alcohol) none since Nov 2022 [facility] Utilities Answer Date Recorded In the past 12 months has [employer], [employer], oil, or water [employer] threatened to shut off services in your [...] Sign Reading Time Taken Comments Blood Pressure 112/69 11/09/2023 1:29 PM EDT Pulse 81 11/09/2023 1:29 PM EDT Temperature - - Respiratory Rate - - Oxygen Saturation - - Inhaled Oxygen Concentration - - Weight 74 kg (163 lb 3.2 oz) 11/09/2023 1:29 PM EDT Height 175.3 cm (5' 9) 11/09/2023 1:29 PM EDT Body Mass Index 24.1 11/09/2023 1:29 PM EDT documented in this encounter Progress Notes * Khloe Calvert, BELLOWS TESTER - 11/09/2023 1:30 PM EDT Gastroenterology and Hepatology Follow Up Visit Patient: Shakir Sexton : 1975 Provider: Khloe Calvert APRN MSN History: Mr. Shakir Sexton is a 48 y.o. male with a history of tobacco use disorder (25 pack years, currently smoking) and alcohol use disorder (multiple years of 12+ drinks; last drink 11/23/22), EtOH cirrhosis c/b ascites and admission to [facility] (11/25/22-11/30/22) for upper GI bleed and volume overload here for routine follow up on ETOH Cirrhosis. He reports he has remained sober. No cravings. Has had some alcohol free beers. Excited to be closeto a year sober. He has no specific GI complaints. No hb or reflux. No abdominal pain. No lower extremity edema. Weight has increased, but reflective of improved nutrition. Much more active. No GI bleeding reported. Is having some muscle soreness-feet, shoulders, arms. He continues on oral iron with improving hgb. Hale/endo: Endoscopy-The Z-line was regular and was found 38 cm from the incisors. A 3 cm hiatal hernia was present. There were esophageal mucosal changes suspicious for Leiva's esophagus present in the lowerthird of the esophagus with a 1cm island comprising approximately 2/3 of the lumen. Biopsies were taken with a cold forceps for histology. Small non-bleeding esophageal varices. Portal hypertensive gastropathy. No gastric varices seen in the fundus in retroflexion. The examined duodenum was normal. Colonoscopy- The terminal ileum appeared normal. A single large angioectasia without bleeding was found in the transverse colon. Coagulation for tissue destruction using argon plasma at 0.5 liters/minute and 20 wilhelm was successful. A single medium-sized angioectasia without bleeding was found in the descending colon. Coagulation for tissue destruction using argon plasma at 0.5 liters/minute and 20 wilhelm was successful. A single small angioectasia without bleeding was found in the sigmoid colon. Coagulation for tissue destruction using argon plasma at 0.5 liters/minute and 20 wilhelm was successful. Admissions: [id number] GI bleed, decompensated cirrhosis. EGD with Grade C esophagitis. 11/7-01/13/23-[facility] Upper GI Bleed, Decompensated cirrhosis EGD 01/11: [place] Grade D reflux esophagitis with oozing. Grade I esophageal varices. Completely flattened with air insufflation and no stigmata of variceal bleeding. Portal hypertensive gastropathy (PHG)with diffuse oozing. PHG and reflux esophagitis are the presumed source of coffee ground emesis. Blood transfusion when he was in [place]. No IV or IN drug use. Smokes nicotine, and MJ. Tattoos-No Started drinking-Late teens/early 20s. Drank beer for many years then switched to bacardi rum-03/11 would last a few days. Did not eat when he was drinking. Many years of this routine. Last drink 21 weeks ago. No interest to start drinking again. No cravings. No herbal supplements. Aunt of cirrhosis when she was in her 50s. Otherwise, no family history of liver disease. No hb or reflux on pantoprazole No dysphagia Appetite is great. Was not eating when he was drinking. Eating much better than he was-Yogurt, oranges, bananas. Chicken, fish, red meat sparingly, veggies. Was on ensure when he was in [place]. Now he is drinking a different brand protein shake-2 a day. No abdominal pain. Had quite a bit of abdominal pain when he had ascites. Bowels have normalized-solid, no further melena. Bowel movements 4 times a day. Has not noticed anysymptoms of GI bleeding. Confusion-Much better than it was. Sleep patterns continue to be irregular. No surgical History. 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 ROS: Constitutional: No unintentional weight loss, fatigue, nor fevers. CV: Denies chest pain, palpitations, dizziness, SOB, Difficulty lying flat, and swollen ankles Resp: No cough, no wheezing GI: As per HPI : No increase in frequency, no burning, no pain with urination Hem: No easy bruising, no swollen nodes, denies gums bleeding easily. MSK: No joint pain/swelling, no muscle pain Skin: No new rash,sores, or lesions. Neuro: No loss of strength, no headaches, or memory loss/changes. Psych: No anxiety, depression, or difficulty sleeping. PROBLEM LIST Patient Active Problem List Diagnosis Code Alcoholic cirrhosis of liver with ascites K70.31 Acute GI bleeding K92.2 Prolonged Q-T interval on ECG R94.31 Hyponatremia E87.1 Cigarette smoker F17.210 End stage liver disease K72.10 *Severe alcohol use disorder F10.20 MEDICATIONS: Current Outpatient Medications Medication Sig Dispense Refill rifAXIMin (Xifaxan) 550 [...] by mouth daily. 90 tablet 3 multivitamin Idta-Iu-II-Min (Therapeutic-M) 27-0.4 mg Tablet Take 1 tablet by mouth daily. 90 tablet 3 lactulose (Chronulac) 10 gram/15 mL Solution Take 30 mLs by mouth 3 times daily. Titrate to 3-4 bowel movements a day 1892 mL 3 spironolactone (Aldactone) 100 mg tablet Take 1 tablet by mouth daily. 30 tablet 11 No current facility-administered medications for this visit. ALLERGIES/ADR No Known Allergies PHYSICAL EXAMINATION: Vitals: 11/09/23 1329 BP: 112/69 BP Location ([facility]): Right arm Patient Position: Sitting BP Cuff Sizes: Adult (25-34 cm) Pulse: 81 Weight: 74 kg (163 lb 3.2 oz) Height: 175.3 cm (5' 9) Body mass index is 24.1 kg/m??. Alert, and oriented. 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 Comfortable wob in ra. Neg asterixis. Skin and sclera are nonicteric. No rashes on exposed skin. Normoactive bs x4. No ttp x 4. No lower extremity edema. PERTINENT LABS AND IMAGING: Lab Results Component Value Date WBC 6.11 11/09/2023 HGB 13.6 (L) 11/09/2023 HCT 40.0 (L) 11/09/2023 MCV 86.6 11/09/2023 Lab Results Component Value Date ALT 15 11/09/2023 AST 35 11/09/2023 ALKPHOS 106 11/09/2023 BILITOT 1.1 11/09/2023 Chemistry Component Value Date/Time NA 138 11/09/2023 1202 NA 132 (L) 04/22/2023 1512 K 4.3 11/09/2023 1202 K 3.9 04/22/2023 1512 CL 102 11/09/2023 1202 CL 102 04/22/2023 1512 CO2 23 11/09/2023 1202 CO2 21 (L) 04/22/2023 1512 BUN 9 (L) 11/09/2023 1202 BUN 16 04/22/2023 1512 CREATININE 0.68 (L) 11/09/2023 1202 CREATININE 0.52 (L) 04/22/2023 1512 Component Value Date/Time CALCIUM 10.2 11/09/2023 1202 CALCIUM 9.1 04/22/2023 1512 ALKPHOS 106 11/09/2023 1202 ALKPHOS 110 04/22/2023 1512 AST 35 11/09/2023 1202 AST 41 (H) 04/22/2023 1512 ALT 15 11/09/2023 1202 ALT 21 04/22/2023 1512 BILITOT 1.1 11/09/2023 1202 BILITOT 1.3 04/22/2023 1512 MELD 3.0: 9 at 11/09/2023 12:02 PM MELD-Na: 10 at 11/09/2023 12:02 PM Calculated from: Serum Creatinine: 0.68 mg/dL (Using min of 1 mg/dL) at 11/09/2023 12:02 PM Serum Sodium: 138 mMol/L (Using max of 137 mMol/L) at 11/09/2023 12:02 PM Total Bilirubin: 1.1 mg/dL at 11/09/2023 12:02 PM Serum Albumin: 4.3 g/dL (Using max of 3.5 g/dL) at 11/09/2023 12:02 PM INR(ratio): 1.3 at 11/09/2023 12:02 PM Age at listing (hypothetical): 48 years Sex: Male at 11/09/2023 12:02 PM IMPRESSION/PLAN: Shakir Sexton is a 48 y.o. male with a history of tobacco use disorder (25 pack years, currently smoking) and alcohol use disorder (multiple years of 12+ drinks; last drink 11/23/22), EtOH cirrhosis c/b ascites, HE, and upper gi bleed. Here for routine follow up on etoh cirrhosis. Initially, presented as decompensated, but since he has stopped drinking he has recompensated. He has done very well from a cirrhosis perspective as he is no longer drinking. No cravings. MELD downtrending now 9. #HCC Screening: -US from today with no lesions. Repeat in 6 months with AFP. #Variceal Surveillance: -Small grade one EV's on egd while admitted. Also, with grade d esophagitis. Repeat scope with small varices. Per charting it looks like they though source of UGI bleed was PHG, and esophagitis. Looks less likely to have been variceal. He is not currently on a beta renu. Could consider low dose carvedilol. His pressure is 112/69 in clinic today, so I am hesitant to start one. I have asked him to monitor his blood pressures. We will discuss at his next visit. #Ascites -Continue Lasix and Aldactone at 40 mg, and 100 mg daily. Has not required recent paracentesis. No evidence of ascites on exam today, and no ascites on his imaging. -Continue low Na diet, limit to less than 2000 mg a day. HE: -Continue Lactulose, aim for 3-4 bms a day. -No signs of HE on exam today-continue lactulose, and xifaxan. The patient was given my contact information and will call me with concerns or questions. Follow upin 6 months with labs and imaging prior. Total time spent on encounter today: Time spent reviewing records prior to this encounter: 5 minutes Time spent during encounter with patient including counselin minutes Time spent documenting encounter after office visit: 5 minutes Khloe Calvert APRN MSN Section of Gastroenterology [place] [address] Cc: ROSALES Akins [email or web address] documented in this encounter Plan of Treatment Upcoming Encounters Date Type Department Care Team (Latest Contact Info) Description 02/01/2024 2:10 PM EST Hospital Encounter [place] [address] Franklin Raimrez MD [address] [place] [address] [place] [address] 02/01/2024 2:10 PM EST - 02/01/2024 4:50 PM EST Surgery [place] [address] Franklin Ramirez MD [address] [place] [address] [place] [address] REPAIR INGUINAL HERNIA, 5 YR OR OLDER, REDUCIBLE (WRVU 7.96) 03/05/2024 11:45 AM EST Office Visit General Surgery at [address] [phone] Franklin Ramirez MD [address] [place] [address] [place] [address] Scheduled Orders Name Type Priority Associated Diagnoses Orde r Schedule CBC (with Diff) Lab Routine Alcoholic cirrhosis of liver with ascites Hepatic encephalopathy Expected: 11/09/2023 (Approximate), Expires: 05/10/2024 Comprehensive metabolic panel Non-fasting Lab Routine Alcoholic cirrhosis of liver with ascites Hepatic encephalopathy Expected: 05/08/2024 (Approximate), Expires: 11/07/2024 Prothrombin Time Lab Routine Alcoholic cirrhosis of liver with ascites Hepatic encephalopathy Expected: 05/08/2024 (Approximate), Expires: 11/07/2024 AFP tumor marker Lab Routine Alcoholic cirrhosis of liver with ascites Hepatic encephalopathy Expected: 05/08/2024 (Approximate), Expires: 11/07/2024 PHOSPHATIDYLETHANOL CONFIRMATION (JULY) Lab Routine Alcoholic cirrhosis of liver with ascites Hepatic encephalopathy Expected: 05/08/2024 (Approximate), Expires: 11/07/2024 US Abdomen Limited Hepatology Protocol Imaging Routine Alcoholic cirrhosis of liver with ascites Hepatic encephalopathy Expected: 05/08/2024 (Approximate), Expires: 11/07/2024 Ferritin Lab Routine Alcoholic cirrhosis of liver with ascites Hepatic encephalopathy Expected: 05/08/2024 (Approximate), Expires: 11/07/2024 Iron and TIBC Lab Routine Alcoholic cirrhosis of liver with ascites Hepatic encephalopathy Expected: 05/08/2024 (Approximate), Expires: 11/07/2024 Scheduled Procedures Name Priority Associated Diagnoses Date/Ti me REPAIR INGUINAL HERNIA, 5 YR OR OLDER, REDUCIBLE (WRVU 7.96) Right inguinal hernia 02/01/2024 2:10 PM EST MODIFIER MESH,BARD FLAT MESH Right inguinal hernia 02/01/2024 2:10 PM EST documented as of this encounter Visit Diagnoses Diagnosis Alcoholic cirrhosis of liver with ascites Alcoholic cirrhosis of liver Hepatic encephalopathy Right inguinal hernia Inguinal hernia without mention of obstruction or gangrene, unilateral or unspecified, (not specified as recurrent) documented in this encounter Care Teams Registered Nurse Float Pool Relationship Specialty Start Date End Date Tonia Hauser PA [address] [place] [address] PCP - General Family Medicine 04/13/23 documented as of this encounter
--- OUTSIDE RECORDS SUMMARY | 2023-12-26 11:40 | XMS_ITS | Encounter Summary ---
Author Organization [facility] Address [facility] [place] [address] Care Team Providers Care Boring Machine Feeder Name Role Phone Tonia Hauser Primary Care Provider [phone] Encounter Details Date Type Department Care Team (Latest Contact Info) Description 04/22/2023 3:00 PM EST Laboratory Appointment Lab 3L [facility] [place] [phone] Alcoholic cirrhosis of liver with ascites; Neutropenia, unspecified type Social History Tobacco Use Types Packs/Day Years Used Date Smoking Tobacco: Every Day Cigarettes 1.5 30 Smokeless Tobacco: Never Alcohol Use Standard Drinks/Week Comments Not Currently 0 (1 standard drink = 0.6 oz pur e alcohol) 03/15/23 16 weeks sober [facility] Utilities Answer Date Recorded In the past [...] place to sleep or slept in a half-way (including now)? No 03/15/2023 DH IPV Inpatient [...] PM EST Hospital Encounter [place] [address] Franklin Ramirez MD [address] [place] [address] [place] [address] 02/01/2024 2:10 PM EST - 02/01/2024 4:50 PM EST Surgery [place] [address] Franklin Ramirez MD [address] [place] [address] [place] [address] REPAIR INGUINAL HERNIA, 5 YR OR OLDER, REDUCIBLE (WRVU 7.96) 03/05/2024 11:45 AM EST Office Visit General Surgery at [facility] [address] [place] [phone] Franklin Ramirez MD [address] [place] [address] [place] [address] Scheduled Procedures Name Priority Associated Diagnoses Date/Ti de REPAIR INGUINAL HERNIA, 5 YR OR OLDER, REDUCIBLE (WRVU 7.96) Right inguinal hernia 02/01/2024 2:10 PM EST MODIFIER MESH,BARD FLAT MESH Right inguinal hernia 02/01/2024 2:10 PM EST documented as of this encounter Procedures Procedure Name Priority Date/Time Associated Diagnosis Comments MISCELLANEOUS LAB REQUEST Routine 04/22/2023 3:12 PM EST Alcoholic cirrhosis of liver with ascites [facility] ARGUETA TEST-ARGUETA Routine 04/22/2023 3 :12 PM EST HEPATITIS B DNA, QUANTITATIVE, PCR Routine 04/22/2023 3:12 PM EST HEMOGRAM Routine 04/22/2023 3:12 PM EST Alcoholic cirrhosis of liver with ascites DIFFERENTIAL, AUTOMATED Routine 04/22/2023 3:12 PM EST Alcoholic cirrhosis of liver with ascites IRON AND TIBC Routine 04/22/2023 3:12 PM EST Alcoholic cirrhosis of liver with ascites [id number] Routine 04/22/2023 3 :12 PM EST Alcoholic cirrhosis of liver with ascites MITOCHONDRIAL ANTIBODY, M2 Routine 04/22/2023 3:12 PM EST Alcoholic cirrhosis of liver with ascites TISSUE TRANSGLUTAMINASE, IGA Routine 04/22/2023 3:12 PM EST Alcoholic cirrhosis of liver with ascites AFP TUMOR MARKER Routine 04/22/2023 3:12 PM EST Alcoholic cirrhosis of liver with ascites SMOOTH MUSCLE ANTIBODY Routine 3:12 PM EST Alcoholic cirrhosis of liver with ascites PROTHROMBIN TIME Routine 04/22/2023 3:12 PM EST Alcoholic cirrhosis of liver with ascites CBC (WITH DIFF) Routine 04/22/2023 3:12 PM EST Alcoholic cirrhosis of liver with ascites HC DNA AB DS ([place]) Routine 04/22/2023 3:12 PM EST Alcoholic cirrhosis of liver with ascites IGG Routine 04/22/2023 3:12 PM EST Alcoholic cirrhosis of liver with ascites FERRITIN Routine 04/22/2023 3:12 PM EST Alcoholic cirrhosis of liver with ascites COMPREHENSIVE METABOLIC PANEL Routine 04/22/2023 3:12 PM EST Alcoholic cirrhosis of liver with ascites documented in this encounter Results * [facility] Argueta Test-Argueta (04/22/2023 3:12 PM EST) Pathologist [facility] Argueta Test ? Result ? Flag ??Unit ?? RefValue --- Phosphatidylethanol Confirmation, B ??PEth 16:0/18:1 (POPEth) by LC-MS/MS ?<20 ?ng/mL ??Cutoff: 10 ?Testing performed at a x2 dilution; limit of quantitation ?is elevated. ?Phosphatidylethan ol (PEth) homologues result interpretation ?PEth 16:0/18:1 (POPEth) ?Less than 10 ng/mL: Not detected ?10 - 19 ng/mL: Abstinence or light alcohol consumption ?(<2 drinks per day for several days a week) ?20 - 200 ng/mL: Moderate alcohol consumption ?(up to 4 drinks per day for several days a week) ?Greater than 200 ng/mL: Heavy alcohol consumption or ?chronic alcohol use (at least 4 drinks per day several days ?a week) ?(Reference: Juice Burnett and Belkys Martinez 2018 J. Forensic Sci) ??PEth 16:0/18:2 (PLPEth) by LC-MS/MS ?<10 ?ng/mL ??Cutoff: 10 ?PEth 16:0/18:2 (PLPEth) ?Reference ranges are not well established ??PEth Interpretation ?Negative. ? --ADDITIONAL INFORMATION-------- ?This report is intended for use in clinical monitoring and ?management of patients. ??It is not intended for use in ?employment-relate d testing. ?This test was developed and its performance characteristics ?determined by [facility] in a manner consistent with CLIA ?requirements. This test has not been cleared or approved by ?the U.S. Food and Drug Administration. ?Test Performed by: ?[facility] [place] ?[address] [place] [address] ?Electron Tube Assembler: Luis Vega M.D. Ph.D.; CLIA# [id number] [facility] Blood Venous Draw / Unknown 04/22/2023 3:12 PM EST 04/25/2023 11:38 AM EST Narrative Resulting Agency Comment Spec In Lab Khloe Calvert PUSHER OPERATOR LAB SEND OUT ORDER NENA Performing Organization Address [facility] de Phone Number [facility] [place] [address] * Hepatitis B DNA, quantitative, PCR (04/22/2023 3:12 PM EST) [facility] Hepatitis B DNA, quantitative, PCR Result: <10 IU/mL (Target not detected) Indication for Study: HBV Infection Analysis: Fernandez Alinity m HBV assay is an in vitro polymerase chain reaction (PCR) assay for the quantification of Hepatitis B Virus (HBV) DNA in human plasma (EDTA) from chronically HBV-infected individuals. Sample: plasma Method: Fernandez RealTime HBV Assay Linear Range: 10 IU/mL ? 1,000,000,000 IU/mL Note: The Fernandez Alinity m HBV Assay has been approved by the U.S. Food and Drug Administration. [facility] Blood Venous Draw / Unknown 04/22/2023 3:12 PM EST 04/25/2023 7:20 AM EST Narrative Resulting Agency Comment Spec In Lab Khloe Calvert PUSHER OPERATOR MOLECULAR ORDERABL ES Performing Organization Address [facility] de Phone Number [facility] [place] [address] * Differential, Automated (04/22/2023 3:12 PM EST) [facility] Neutrophil % 58.6 % [facility] Neutrophil Absolute 3.33 1.70 - 6.10 x10(3)/[facility] Lymph % 22.7 % [facility] Lymphocytes Abs 1.3 0.9 - 3.2 x10(3)/[facility] Monocyte % 15.1 % [facility] Monocyte Abs 0.9 0.3 - 0.9 x10(3)/[facility] Eos % 3.0 % [facility] Eosinophils Abs 0.2 0.0 - 0.4 x10(3)/[facility] Basophil % 0.4 % [facility] Baso Absolute 0.0 0.0 - 0.1 x10(3)/[facility] Immature Gran % 0.20 % [facility] Comment: Immature granulocytes(IG's)percentage and absolute count will include metamyelocytes, myelocytes, and promyelocytes. Blood smears from CBCs yielding IG's will be scanned manually for concordance. If this scan disagrees with the automated IG or if promyelocytes are noted, a manual differential will be performed. Immature Gran Absolute 0.01 0.00 - 0.04 x10(3)/[facility] Blood 04/22/2023 3:12 PM EST 04/22/2023 3:21 PM EST Narrative Resulting Agency Comment Spec In Lab Khloe Calvert PUSHER OPERATOR HEMATOLOGY ORDERAB LES Performing Organization Address City/State/[facility] Co de Phone Number [facility] [place] [address] * (ABNORMAL) Hemogram (04/22/2023 3:12 PM EST) White Blood Cell 5.7 4.0 - 9.5 x10(3)/mc L [facility] Red Blood Cell 2.92(L) 4.58 - 5.54 x10(6)/mc L [facility] Hemoglobin 8.3(L) 13.7 - 16.5 g/dL [facility] Hematocrit 25.2(L) 40.5 - 48.5 % [facility] Mean Cell Volume 86.3 82.9 - 93.1 fL [facility] Mean Cell Hemoglobin 28.4 27.5 - 32.1 pg [facility] Mean Cell Hemoglobin Concentration 32.9 32.0 - 35.7 g/dL [facility] Platelet 148 145 - 357 x10(3)/mc L [facility] RDW Standard Deviation 54.8(H) 36.0 - 45.0 fL [facility] RDW coefficient of variation 17.1(H) 11.4 - 13.8 % [facility] Mean Platelet Volume 8.1 7.6 - 12.9 fL [facility] NRBC% auto 0.0 % [facility] NRBC Absolute 0.000 0.000 - 0.000 x10(3)/mc L [facility] Blood 04/22/2023 3:12 PM EST 04/22/2023 3:21 PM EST Narrative Resulting Agency Comment Spec In Lab Khloe Rey Ruffin PUSHER OPERATOR HEMATOLOGY ORDERAB LES Performing Organization Address City/[facility]/ZIP Co de Phone Number [facility] [place] [address] * Tissue transglutaminase, IgA (04/22/2023 3:12 PM EST) TTG IgA Ab 1.2 <=10.0 u/ml [facility] Comment: Negative: ??<7 units/mL Indeterminate: 7-10 units/mL Positive: ??>10 units/mL Blood 04/22/2023 3:12 PM EST 04/25/2023 7:20 AM EST Narrative Resulting Agency Comment Spec In Lab Khloe Krissy Calvert PUSHER OPERATOR IMMUNOLOGY ORDERAB LES Performing Organization Address [facility] Co de Phone Number [facility] [place] [address] * Mitochondrial Antibody, M2 (04/22/2023 3:12 PM EST) Mitochon Ab (MAY) <0.1 <0.1 (Negative) U [facility] Comment: Test Performed by: [place] [address] Electron Tube Assembler: Luis Vega M.D. Ph.D.; CLIA# [id number] Blood 04/22/2023 3:12 PM EST 04/25/2023 6:14 AM EST Narrative Resulting Agency Comment Spec In Lab Khloe [place] Enrike PUSHER OPERATOR LAB SEND OUT ORDER NENA Performing Organization Address City/[facility]/ZIP Co de Phone Number [facility] [place] [address] * (ABNORMAL) Iron and TIBC (04/22/2023 3:12 PM EST) Iron 33(L) 45 - 160 mcg/dL [facility] TIBC 334 250 - 450 mcg/dL [facility] Iron Saturation 10(L) 20 - 50 % [facility] Blood 04/22/2023 3:12 PM EST 04/22/2023 3:21 PM EST Narrative Resulting Agency Comment Spec In Lab Khloe Krissy Calvert PUSHER OPERATOR CHEMISTRY ORDERABL ES Performing Organization Address City/[facility]/ZIP Co de Phone Number [facility] [place] [address] * IgG (04/22/2023 3:12 PM EST) Immunoglobulin G 1,250 700 - 1,600 mg/dL [facility] Comment: Pediatric Reference Intervals obtained from the Caliper Reference Interval project. http://www.CareCentrix.ca/caliperproject/index.html Blood 04/22/2023 3:12 PM EST 04/22/2023 3:21 PM EST Narrative Resulting Agency Comment Spec In Lab Khloe Krissy Calvert PUSHER OPERATOR CHEMISTRY ORDERABL ES Performing Organization Address [facility] Co de Phone Number [facility] [place] [address] * (ABNORMAL) Ferritin (04/22/2023 3:12 PM EST) Ferritin 18(L) 31 - 409 ng/mL [facility] Comment: Please note that as of 02/09/2023, the reference intervals for Ferritin have been updated. Blood 04/22/2023 3:12 PM EST 04/22/2023 3:21 PM EST Narrative Resulting Agency Comment Spec In Lab Khloe Krissy Calvert PUSHER OPERATOR CHEMISTRY ORDERABL ES Performing Organization Address [facility] Co de Phone Number [facility] [place] [address] * Smooth Muscle Antibody (04/22/2023 3:12 PM EST) Sm Muscle Ab (JULY) Negative Negative [facility] Comment: Negative: No further testing will be performed ADDITIONAL INFORMATION This test was developed and its performance characteristics determined by [facility] in a manner consistent with CLIA requirements. This test has not been cleared or approved by the U.S. Food and Drug Administration. Test Performed by: [facility] [place] [address] [place] [address] Electron Tube Assembler: Luis Vega M.D. Ph.D.; CLIA# [id number] Blood 04/22/2023 3:12 PM EST 04/25/2023 6:14 AM EST Narrative Resulting Agency Comment Spec In Lab Khloe Calvert APRN LAB SEND OUT ORDER NENA [facility] [place] [address] * SENTHIL Antibody Screen (04/22/2023 3:12 PM EST) SENTHIL Ab Screen Negative Negative [facility] Comment: This antinuclear antibody (SENTHIL) screen is a qualitative test performed using a fluoroenzyme immunoassay on the Engagement Labsdia 250 analyzer. This screen is designed to detect antibodies to U1RNP, SS-A/Ro, SS-B/La, centromere B, Scl-70, Mi-1, and Sm(Martinez) proteins in serum samples. Antibodies to other nuclear antibodies will not be detected with this assay. This SENTHIL screen is also performed in concert with a quantitative for IgG antibodies to dsDNA. Please note that as of 12/29/2021 that this testing is performed by the Special Chemistry Laboratory at [facility]. This change in testing location is associated with a change is testing method and reference intervals. Please review the results of this test in association with the posted reference intervals. dsDNA Ab 1.1 <=15.0 IU/mL [facility] Comment: <10 negative 10-15 equivocal >15 positive This dsDNA antibody result was generated using a fluoroenzyme immunoassay on the Phadia 250 analyzer. This quantitative test is designed to detect IgG antibodies directed against double stranded DNA in human serum. The presence of antibodies that recognize dsDNA is a highly specific marker for systemic lupus erythematosus. Please note that as of 12/29/2021 that this testing is performed by the Special Chemistry Laboratory at [facility]. This change in testing location is associated with a change is testing method and reference intervals. Please review the results of this test in association with the posted reference intervals. Blood 04/22/2023 3:12 PM EST 04/25/2023 7:20 AM EST Narrative Resulting Agency Comment Spec In Lab Khloe Calvert APRN LAB SEND OUT ORDER NENA Performing Organization Address [facility] Co de Phone Number [facility] [place] [address] * (ABNORMAL) A1AT Serum Concentration (04/22/2023 3:12 PM EST) A1AT 201(H) 90 - 200 mg/dL [facility] Blood 04/22/2023 3:12 PM EST 04/22/2023 3:21 PM EST Narrative Resulting Agency Comment Spec In Lab Khloe Calvert APRN CHEMISTRY ORDERABL ES Performing Organization Address [facility] Co de Phone Number [facility] [place] [address] * Miscellaneous Lab request (04/22/2023 3:12 PM EST) Label Request received in lab. [facility] Blood 04/22/2023 3:12 PM EST 04/22/2023 3:21 PM EST Narrative Resulting Agency Comment Spec In Lab Khloe Calvert APRN LAB SEND OUT ORDER NENA Performing Organization Address [facility] Co de Phone Number [facility] [place] [address] * AFP tumor marker (04/22/2023 3:12 PM EST) Alpha Fetoprotein 2.8 <=8.3 ng/mL [facility] Comment: This result was generated using a Cally Peterson immunoassay. ??Results obtained from other methods or manufacturers cannot be used interchangeably with this method. Blood 04/22/2023 3:12 PM EST 04/22/2023 3:21 PM EST Narrative Resulting Agency Comment Spec In Lab Khloe Calvert PUSHER OPERATOR CHEMISTRY ORDERABL ES Performing Organization Address [facility] Phone Number [facility] [place] [address] * (ABNORMAL) Prothrombin Time (04/22/2023 3:12 PM EST) Prothrombin Time 16.9(H) 9.4 - 12.5 sec [facility] International Normalization Ratio 1.5 [facility] Comment: An INR <2.0 indicates adequate procoagulant activity for hemostasis in most patients without underlying bleeding disorders, though the INR may not adequately reflect hemostatic capacity in patients with liver disease and synthetic impairment. The recommended target INR range for therapeutic anticoagulation is 2.0 ? 3.0 for most applications, though lower and higher ranges may be appropriate depending on clinical circumstances. Blood 04/22/2023 3:12 PM EST 04/22/2023 3:21 PM EST Narrative Resulting Agency Comment Spec In Lab Khloe Calvert PUSHER OPERATOR HEMATOLOGY ORDERAB LES Performing Organization Address [facility] de Phone Number [facility] [place] [address] * (ABNORMAL) Comprehensive metabolic panel (non-fasting) (04/22/2023 3:12 PM EST) Glucose 118 65 - 199 mg/dL [facility] Comment:Diabetes: >=200 mg/d L plus symptoms Blood Urea Nitrogen 16 10 - 20 mg/dL [facility] Creatinine 0.52(L) 0.80 - 1.50 mg/dL [facility] Sodium 132(L) 135 - 145 mmol/L [facility] Potassium 3.9 3.5 - 5.0 mmol/L [facility] Comment: Please note: ??Patients with WBC >100,000 may have falsely elevated Potassium levels. ??For accurate Potassium quantification in these patients send serum separator tube (gold top) for subsequent determinations. ??Contact the Clinical Chemistry Laboratory if there are any questions. Chloride 102 98 - 107 mmol/L [facility] Carbon Dioxide 21(L) 22 - 31 mmol/L [facility] Anion Gap 9 5 - 15 mmol/L [facility] Calcium 9.1 8.5 - 10.5 mg/dL [facility] Protein, Total 6.5 6.1 - 8.0 g/dL [facility] Albumin 3.6 3.2 - 5.2 g/dL [facility] Aspartate Aminotransferase 41(H) 0 - 39 unit/L [facility] Alanine Aminotransferase 21 0 - 55 unit/L [facility] Alkaline Phosphatase 110 40 - 130 unit/L [facility] Bilirubin, Total 1.3 0.2 - 1.3 mg/dL [facility] Est Glomerular Filtration Rate 124 >=60 mL/min/1. 73 m?? [facility] Comment: This patient's estimated GFR was [...] urine creatinine clearance. Assignment of CKD stage 1-5 for patients with an eGFR near the transition point between stages may be based on clinical assessment of muscle mass and symptoms in addition to eGFR. Blood 04/22/2023 3:12 PM EST 04/22/2023 3:21 PM EST Narrative Resulting Agency Comment Spec In Lab Khloe Calvert PUSHER OPERATOR CHEMISTRY ORDERABL ES [facility] [place] [address] documented in this encounter Visit Diagnoses Diagnosis Alcoholic cirrhosis of liver with ascites Alcoholic cirrhosis of liver Neutropenia, unspecified type Right inguinal hernia Inguinal hernia without mention of obstruction or gangrene, unilateral or unspecified, (not specified as recurrent) documented in this encounter Care Teams Boring Machine Feeder Relationship Specialty Start Date End Date Tonia Hauser PA [address] [place] [address] PCP - General Family Medicine 04/13/23 documented as of this encounter
--- OUTSIDE RECORDS SUMMARY | 2023-12-26 11:40 | XMS_ITS | Encounter Summary ---
Author Organization [facility] Address [facility] [place] [address] Care Team Providers Care Emt Name Role Phone Tonia Hauser Primary Care Provider [phone] Reason for Visit * Reason Onset Date Comments Medication Refill 06/07/2023 Encounter Details Date Type Department Care Team (Late st Contact Info) Description 06/07/2023 [place]ill [place] [address] Isabel Pickard MD [facility] [place] [address] Acute GI bleeding Social History Tobacco Use Types Packs/Day Years Used Date Smoking Tobacco: Every Day Cigarettes Smokeless Tobacco: Never Comments:Started smoking at age 18 (1992) DENIES VAPING Alcohol Use Standard Drinks/Week Comments Not Currently 0 (1 standard drink = 0.6 oz pur e alcohol) none since Nov 2022 [facility] Utilities Answer Date Recorded In the past 12 months has [employer], gas, oil, or water [employer] threatened to shut off services in your [...] place to sleep or slept in a intermediate (including now)? No 03/15/2023 DH IPV Inpatient [...] PM EST Hospital [place] [address] Franklin Ramirez MD [address] [place] [address] [place] [address] 02/01/2024 2:10 PM EST - 02/01/2024 4:50 PM EST [place] [address] Franklin Ramirez MD [address] [place] [address] [place] [address] REPAIR INGUINAL HERNIA, 5 YR OR OLDER, REDUCIBLE (WRVU 7.96) 03/05/2024 11:45 AM EST Office Visit General Surgery at [facility] [address] [id number] Franklin Ramirez MD [address] [place] [address] [place] [address] Scheduled Procedures Name Priority Associated Diagnoses Date/Ti nj REPAIR INGUINAL HERNIA, 5 YR OR OLDER, REDUCIBLE (WRVU 7.96) Right inguinal hernia 02/01/2024 2:10 PM EST MODIFIER MESH,BARD FLAT MESH Right inguinal hernia 02/01/2024 2:10 PM EST documented as of this encounter Visit Diagnoses Diagnosis Acute GI bleeding Hemorrhage of gastrointestinal tract, unspecified Right inguinal hernia Inguinal hernia without mention of obstruction or gangrene, unilateral or unspecified, (not specified as recurrent) documented in this encounter Care Teams Emt Relationship Specialty Start Date End Date Tonia Hauser PA [address] [place] [address] PCP - General Family Medicine 04/13/23 documented as of this encounter
--- OUTSIDE RECORDS SUMMARY | 2023-12-26 11:40 | XMS_ITS | Encounter Summary ---
Author Organization [facility] Address [facility] [place] [address] Care Team Providers Care Canoe Maker Name Role Phone Tonia Hauser Primary Care Provider [phone] Encounter Details Date Type Department Care Team (Latest Contact Info) Description 04/22/2023 Travel Social History Tobacco Use Types Packs/Day Years Used Date Smoking Tobacco: Every Day Cigarettes 1.5 30 Smokeless Tobacco: Never Alcohol Use Standard Drinks/Week Comments Not Currently 0 (1 standard drink = 0.6 oz pur e alcohol) 03/15/23 16 weeks sober [facility] Utilities Answer Date Recorded In the past 12 months has [employer] electric, gas, oil, or water [employer] threatened to shut off services in your [...] place to sleep or slept in a halfway (including now)? No 03/15/2023 DH IPV Inpatient [...] PM EST Hospital Encounter [place] [address] Franklin Ramirez MD [address] [place] [address] [place] [address] 02/01/2024 2:10 PM EST - 02/01/2024 4:50 PM EST Surgery [place] [address] Franklin Ramirez MD [address] [place] [address] [place] [address] REPAIR INGUINAL HERNIA, 5 YR OR OLDER, REDUCIBLE (WRVU 7.96) 03/05/2024 11:45 AM EST Office Visit General Surgery at [facility] [address] [place] [address] [place] [address] Franklin Ramirez MD [address] [place] [address] [place] [address] Scheduled Procedures Name Priority Associated Diagnoses Date/Ti me REPAIR INGUINAL HERNIA, 5 YR OR OLDER, REDUCIBLE (WRVU 7.96) Right inguinal hernia 02/01/2024 2:10 PM EST MODIFIER MESH,BARD FLAT MESH Right inguinal hernia 02/01/2024 2:10 PM EST documented as of this encounter Visit Diagnoses Not on filedocumented in this encounter Care Teams Canoe Maker Relationship Specialty Start Date End Date Tonia Hauser PA [address] [place] [address] PCP - General Family Medicine 04/13/23 documented as of this encounter
--- OUTSIDE RECORDS SUMMARY | 2023-12-26 11:40 | XMS_ITS | Encounter Summary ---
Author Organization [facility] [place] [facility] [place] [address] Care Team Providers Care Utility Arborist Name Role Phone Tonia Hauser Primary Care Provider [phone] Reason for Visit * Reason Onset Date Comments Medication Refill 07/18/2023 Encounter Details Date Type Department Care Team (Late st Contact Info) Description 07/18/2023 Refill Family Medicine at [address] [place] [phone] Tonia Hauser PA [address] [facility] [place] [address] Social History Tobacco Use Types Packs/Day Years Used Date Smoking Tobacco: Every Day Cigarettes Smokeless Tobacco: Never Comments:Started smoking at age 18 (1992) DENIES VAPING Alcohol Use Standard Drinks/Week Comments Not Currently 0 (1 standard drink = 0.6 oz pur e alcohol) none since Nov 2022 [facility] Utilities Answer Date Recorded In the past 12 months has [employer], [employer], oil, or water [employer] threatened to shut off services in your [...] encounter Miscellaneous Notes * Telephone Encounter - Roselia Mistry Sandhya, [facility] - 07/19/2023 12:16 PM EDT Prescription Renewal Request Name: Shakir Sexton : 1975 Prescription(s) Requested: Requested Prescriptions Pending Prescriptions Disp Refills folic acid (Vitamin B9) 1 mg tablet 30 tablet 1 Sig: Take 1 tablet by mouth daily. Date of Encounter last in This Dept (If need an appointment send to secretaries to schedule): 03/15/2023 with Tonia Hauser PA Next Encounter in This Dept: Visit date not found Date of Last Refill (for each medication): 05/13/2023, 30:1 Authorized By: Tonia Hauser PA Status of request: Pended No Known Allergies Roselia Mistry CMA 07/19/23 12:17 PM documented in this encounter Plan of Treatment Upcoming Encounters Date Type Department Care Team (Latest Contact Info) Description 02/01/2024 2:10 PM EST Hospital Encounter [place] [address] Franklin Ramirez MD [address] [place] [address] [place] [address] 02/01/2024 2:10 PM EST - 02/01/2024 4:50 PM EST Surgery [place] [address] Franklin Ramirez MD [address] [place] [address] REPAIR INGUINAL HERNIA, 5 YR OR OLDER, REDUCIBLE (WRVU 7.96) 03/05/2024 11:45 AM EST Office Visit General Surgery at [address] [address] Franklin Ramirez MD [address] [place] [address] [place] [address] Scheduled Procedures Name Priority Associated Diagnoses Date/Ti tn REPAIR INGUINAL HERNIA, 5 YR OR OLDER, REDUCIBLE (WRVU 7.96) Right inguinal hernia 02/01/2024 2:10 PM EST MODIFIER MESH,BARD FLAT MESH Right inguinal hernia 02/01/2024 2:10 PM EST documented as of this encounter Visit Diagnoses Not on filedocumented in this encounter Care Teams Utility Arborist Relationship Specialty Start Date End Date Tonia Hauser PA [address] [place] [address] PCP - General Family Medicine 04/13/23 documented as of this encounter
--- OUTSIDE RECORDS SUMMARY | 2023-12-26 11:40 | XMS_ITS | Encounter Summary ---
Author Organization [facility] Address [facility] [place] [address] Care Team Providers Care Residential Sales Rep Name Role Phone Tonia Hauser Primary Care Provider [phone] Encounter Details Date Type Department Care Team (Latest Contact Info) Description 11/09/2023 10:51 AM EDT - 11/09/2023 11:59 PM EDT Hospital [place] [phone] Rocky Calvert, PLAY READER [facility] [place] [place] [address] Alcoholic cirrhosis of liver with ascites Discharge Disposition: Home Social History Tobacco Use Types Packs/Day Years Used Date Smoking Tobacco: Every Day Cigarettes Smokeless Tobacco: Never Comments:Started smoking at age 18 (1992) DENIES VAPING Alcohol Use Standard Drinks/Week Comments Not Currently 0 (1 standard drink = 0.6 oz pur e alcohol) none since Nov 2022 [facility] Utilities Answer Date Recorded In the past 12 months has [employer], gas, oil, or water [employer] threatened to shut off services in your [...] Sig Dispensed Refills Start Date End Date rifAXIMin (Xifaxan) 550 mg tablet Take 550 mg by mouth daily. furosemide (Lasix) 40 mg tablet TAKE ONE TABLET BY MOUTH EVERY DAY 90 tablet 3 09/21/2023 potassium chloride ER (Klor-Con, K-Tab) 10 mEq ER tabletIndications:Hypo kalemia Take 1 tablet by mouth daily. 90 tablet 3 04/12/2023 lactulose (Chronulac) 10 gram/15 mL Solution Take 30 mLs by mouth 3 times daily. Titrate to 3-4 bowel movements a day 1892 mL 3 03/16/2023 spironolactone (Aldactone) 100 mg tabletIndications:Alco holic cirrhosis of liver with ascites Take 1 tablet by mouth daily. 30 tablet 11 02/14/2023 folic acid (Vitamin B9) 1 mg tablet TAKE ONE TABLET BY MOUTH EVERY DAY 30 tablet 1 09/19/2023 11/22/2023 multivitamin Isxv-Nc-CU-Min (Therapeutic-M) 27-0.4 mg Tablet Take 1 tablet by mouth daily. 90 tablet 3 03/16/2023 12/07/2023 documented as of this encounter Plan of Treatment Upcoming Encounters Date Type Department Care Team (Latest Contact Info) Description 02/01/2024 2:10 PM EST Hospital Encounter [place] [address] Franklin Ramirez MD [address] [place] [address] [place] [address] 02/01/2024 2:10 PM EST - 02/01/2024 4:50 PM EST Surgery [place] [address] Franklin Ramirez MD [address] [place] [address] [place] [address] REPAIR INGUINAL HERNIA, 5 YR OR OLDER, REDUCIBLE (WRVU 7.96) 03/05/2024 11:45 AM EST Office Visit General Surgery at [facility] [address] [address] Franklin Ramirez MD [address] [place] [address] [place] [address] Scheduled Procedures Name Priority Associated Diagnoses Date/Ti ia REPAIR INGUINAL HERNIA, 5 YR OR OLDER, REDUCIBLE (WRVU 7.96) Right inguinal hernia 02/01/2024 2:10 PM EST MODIFIER MESH,BARD FLAT MESH Right inguinal hernia 02/01/2024 2:10 PM EST documented as of this encounter Procedures Procedure Name Priority Date/Time Associated Diagnosis Comments US ABDOMEN LIMITED HEPATOLOGY PROTOCOL Routine 11/09/2023 11:22 AM EDT Alcoholic cirrhosis of liver with ascites documented in this encounter Results * US Abdomen Limited Hepatology Protocol (11/09/2023 11:22 AM EDT) WORKSTATION ID [id number] RAD Anatomical Region Laterality Modality Abdomen Ultrasound [...] AM Electronically signed by: Orville Clark MD, [facility] ([phone]), at 11/09/2023 11:48 AM Thank you for letting us participate in the care of this patient. If you are a health care provider and have any questions regarding this report, please contact the number above. For patients who have questions, please contact the health daycare assistant that requested your imaging first. ? Physician Millie Electronically Signed Final Report ?? 11/09/2023 11:54 am Narrative 11/09/2023 11:55 AM EDT Abdominal ? (Signed Final 11/09/2023 11:54 am) PATIENT INFO: ID #: ? [id number] ?: ??[birth year] (48 yrs)(M) Name: ? MONISHA SEXTON ? Visit Date: 11/09/2023 11:20 am PERFORMED BY: Attending: ?Eduardo SANCHEZ, [place] Resident: ? Jackelyn Elliott MD Performed By: ? Brenda Reyes RDMS Referred By: ?ROCKY Krissy CALVERT Location: ? [place] [facility]ICE[facility]S) [facility] - Hepatology Protocol - Abdominal ?[id number] Limited Survey Single Organ or Quadrant - [id number] INDICATIONS: cirrhosis COMPARISON: US abdomen limited hepatology [...] 11/09/2023 11:54 am) PATIENT INFO: ID #: [id number] : [birth year] (48 yrs)(M) Name: MONISHA SEXTON Visit Date: 11/09/2023 11:20 am PERFORMED BY: Attending: Orville Clark MD Resident: Jackelyn Elliott MD Performed By: Brenda Reyes RDMS Referred By: ROCKY CALVERT Location: [place] [facility] - Hepatology Protocol - Abdominal 39232 Limited Survey Single Organ or Quadrant - [id number] INDICATIONS: cirrhosis COMPARISON: US abdomen limited hepatology [...] AM Electronically signed by: Orville Clark MD, [facility] ([phone]), at 11/09/2023 11:48 AM Thank you for letting us participate in the care of this patient. If you are a health care provider and have any questions regarding this report, please contact the number above. For patients who have questions, please contact the health daycare assistant that requested your imaging first. Orville Clark, Physician Electronically Signed Final Report 11/09/2023 11:54 am [place] PLAY READER IMG US GEN ORDERAB LES documented in this encounter Visit Diagnoses Diagnosis Alcoholic cirrhosis of liver with ascites Alcoholic cirrhosis of liver Right inguinal hernia Inguinal hernia without mention of obstruction or gangrene, unilateral or unspecified, (not specified as recurrent) documented in this encounter Care Teams Residential Sales Rep Relationship Specialty Start Date End Date Tonia Hauser PA [address] [place] [address] PCP - General Family Medicine 04/13/23 documented as of this encounter
--- OUTSIDE RECORDS SUMMARY | 2023-12-26 11:40 | XMS_ITS | Encounter Summary ---
Author Organization [facility] Address [facility] [place] [address] Care Team Providers Care Cloth Cutting Inspector Name Role Phone Tonia Hauser Primary Care Provider [phone] Encounter Details Date Type Department Care Team (Latest Contact Info) Description 11/02/2023 Travel Social History Tobacco Use Types Packs/Day Years Used Date Smoking Tobacco: Every Day Cigarettes Smokeless Tobacco: Never Comments:Started smoking at age 18 (1992) DENIES VAPING Alcohol Use Standard Drinks/Week Comments Not Currently 0 (1 standard drink = 0.6 oz pur e alcohol) none since Nov [address] [facility] Utilities Answer Date Recorded In the past 12 months has [email or web address], gas, oil, or water company threatened [...] PM EST Hospital Encounter [place] [address] Franklin Ramirez MD [address] [place] [address] [place] [address] 02/01/2024 2:10 PM EST - 02/01/2024 4:50 PM EST Surgery [place] [address] Franklin Ramirez MD [address] [place] [address] [place] [address] REPAIR INGUINAL HERNIA, 5 YR OR OLDER, REDUCIBLE (WRVU 7.96) 03/05/2024 11:45 AM EST Office Visit General Surgery at [facility] [address] [place] [address] Franklin Ramirez MD [address] [place] [address] [place] [address] Scheduled Procedures Name Priority Associated Diagnoses Date/Ti me REPAIR INGUINAL HERNIA, 5 YR OR OLDER, REDUCIBLE (WRVU 7.96) Right inguinal hernia 02/01/2024 2:10 PM EST MODIFIER MESH,BARD FLAT MESH Right inguinal hernia 02/01/2024 2:10 PM EST documented as of this encounter Visit Diagnoses Not on filedocumented in this encounter Care Teams Cloth Cutting Inspector Relationship Specialty Start Date End Date Tonia Hauser PA [address] [place] [address] PCP - General Family Medicine 04/13/23 documented as of this encounter
--- OUTSIDE RECORDS SUMMARY | 2023-12-26 11:40 | XMS_ITS | Encounter Summary ---
Author Organization [facility] [place] [address] Care Team Providers Care Smasher Name Role Phone Tonia Hauser Primary Care Provider [phone] Reason for Visit * Reason Onset Date Comments Medication Refill 06/07/2023 Encounter Details Date Type Department Care Team (Late st Contact Info) Description 06/07/2023 Refill Family Medicine at [address] [place] [phone] Tonia Hauser PA [address] [facility] [facility] [place] [address] Social History Tobacco Use Types Packs/Day Years Used Date Smoking Tobacco: Every Day Cigarettes Smokeless Tobacco: Never Comments:Started smoking at age 18 (1992) DENIES VAPING Alcohol Use Standard Drinks/Week Comments Not Currently 0 (1 standard drink = 0.6 oz pur e alcohol) none since Nov 2022 [facility] Utilities Answer Date Recorded In the past 12 months has [employer], [employer], oil, or water [email or web address] threatened to shut off services in your [...] PM EST Hospital Encounter [place] [address] Franklin Raimrez MD [address] [place] [address] [place] [address] 02/01/2024 2:10 PM EST - 02/01/2024 4:50 PM EST Surgery [place] [address] Franklin Ramirez MD [address] [place] [address] [place] [address] REPAIR INGUINAL HERNIA, 5 YR OR OLDER, REDUCIBLE (WRVU 7.96) 03/05/2024 11:45 AM EST Office Visit General Surgery at [address] [phone] Franklin Ramirez MD [address] [place] [address] [place] [address] Scheduled Procedures Name Priority Associated Diagnoses Date/Ti wa REPAIR INGUINAL HERNIA, 5 YR OR OLDER, REDUCIBLE (WRVU 7.96) Right inguinal hernia 02/01/2024 2:10 PM EST MODIFIER MESH,BARD FLAT MESH Right inguinal hernia 02/01/2024 2:10 PM EST documented as of this encounter Visit Diagnoses Not on filedocumented in this encounter Care Teams Smasher Relationship Specialty Start Date End Date Tonia Hauser PA [address] [place] [address] PCP - General Family Medicine 04/13/23 documented as of this encounter
--- OUTSIDE RECORDS SUMMARY | 2023-12-26 11:40 | XMS_ITS | Encounter Summary ---
Author Organization [facility] [place] [address] Care Team Providers Care Glost Kiln Placer Name Role Phone Tonia Hauser Primary Care Provider [phone] Reason for Visit * Reason Comments Medication Refill Encounter Details Date Type Department Care Team (Late st Contact Info) Description 05/11/2023 Refill Family Medicine at [address] [place] [phone] T[facility]er PA [address] [facility] [place] [address] Social History Tobacco Use Types Packs/Day Years Used Date Smoking Tobacco: Every Day Cigarettes 1.5 30 Smokeless Tobacco: Never Alcohol Use Standard Drinks/Week Comments Not Currently 0 (1 standard drink = 0.6 oz pur e alcohol) 03/15/23 16 weeks sober [facility] Utilities Answer Date Recorded In the past 12 months has [employer], gas, oil, or water [employer] threatened to shut off services in your [...] PM EST Hospital Encounter Main [place] [address] Franklin Ramirez MD [address] [place] [address] [place] [address] 02/01/2024 2:10 PM EST - 02/01/2024 4:50 PM EST Surgery [place] [address] Franklin Ramirez MD [address] [place] [address] [place] [address] REPAIR INGUINAL HERNIA, 5 YR OR OLDER, REDUCIBLE (WRVU 7.96) 03/05/2024 11:45 AM EST Office Visit General Surgery at [facility] [address] [phone] Franklin Ramirez MD [address] [place] [address] [place] [address] Scheduled Procedures Name Priority Associated Diagnoses Date/Ti ga REPAIR INGUINAL HERNIA, 5 YR OR OLDER, REDUCIBLE (WRVU 7.96) Right inguinal hernia 02/01/2024 2:10 PM EST MODIFIER MESH,BARD FLAT MESH Right inguinal hernia 02/01/2024 2:10 PM EST documented as of this encounter Visit Diagnoses Not on filedocumented in this encounter Care Teams Glost Kiln Placer Relationship Specialty Start Date End Date Tonia Hauser PA [address] [place] [address] PCP - General Family Medicine 04/13/23 documented as of this encounter
--- OUTSIDE RECORDS SUMMARY | 2023-12-26 11:40 | XMS_ITS | Encounter Summary ---
Author Organization [facility] Address [facility] [place] [address] Care Team Providers Care Facing Baster Name Role Phone Tonia Hauser Primary Care Provider [phone] Encounter Details Date Type Department Care Team (Late st Contact Info) Description 05/16/2023 2:59 PM EDT - 05/16/2023 3:59 PM EDT Surgery [place] [address] Luis Antonio Mendoza MD [facility] [place] [address] EGD WITH BIOPSY (WRVU 2.39) Social History Tobacco Use Types Packs/Day Years Used Date Smoking Tobacco: Every Day Cigarettes Smokeless Tobacco: Never Tobacco Cessation:Ready to Q uit: Not Asked; Counseling Given: Not Answered Comments:Started smoking at age 18 (1992) DENIES VAPING Alcohol Use Standard Drinks/Week Comments Not Currently 0 (1 standard drink = 0.6 oz pur e alcohol) none since Nov 2022 [facility] Utilities Answer Date Recorded In the past 12 months has [employer], gas, oil, or water company threatened to [...] place to sleep or slept in a jail (including now)? No 03/15/2023 DH IPV Inpatient [...] Sign Reading Time Taken Comments Blood Pressure 92/64 05/16/2023 3:56 PM EDT Pulse 75 05/16/2023 3:56 PM EDT Temperature 36.5 ??C (97.7 ??F) 05/16/2023 1:31 PM ED T Respiratory Rate 14 05/16/2023 3:56 PM EDT Oxygen Saturation 98% 05/16/2023 3:56 PM EDT Inhaled Oxygen Concentration - - Weight 70.3 kg (155 lb) 05/16/2023 1:31 PM EDT Height 175.3 cm (5' 9) 05/16/2023 1:31 PM EDT Body Mass Index 22.89 05/16/2023 1:31 PM EDT documented in this encounter Discharge Instructions * Discharge Instructions* Diana English RN - 05/16/2023 4:17 PM EDT Upper GI Endoscopy: What to Expect at Home Your Recovery You will be able to go home after your doctor or nurse checks to make sure you are not having any problems. You may have to stay overnight if you had treatment during the test. You may have a sore throat fora day or two after the test. This care sheet gives you a general idea about what to expect after the test. How can you care for yourself at home? Activity Rest when you feel tired. You can do your normal activities when it feels okay to do so. Diet Follow your doctor's directions for eating. Unless your doctor has told you not to, drink plenty of fluids. This helps to replace the fluids that were lost during the prep. Do not drink alcohol. Medicines Your doctor will tell you if and when you can restart your medicines. He or she will also give you instructions about taking any new medicines. If you take blood thinners, such as warfarin (Coumadin), clopidogrel (Plavix), or aspirin, be sure to talk to your doctor. He or she will tell you if and when to start taking those medicines again. Make sure that you understand exactly what your doctor wants you to do. If polyps were removed or a biopsy was done during the test, your doctor may tell you not to take aspirin or other anti-inflammatory medicines for a few days. These include ibuprofen (Advil, Motrin) and naproxen (Aleve). If you have a sore throat the day after the procedure, use an urey-qpg-fklyetp spray to numb your throat. Sucking on throat lozenges and gargling with warm salt water may also help relieve your symptoms. Other instructions For your safety, do not drive or operate machinery until the medicine wears off and you can think clearly. Your doctor may tell you not to drive or operate machinery until the day after your test. Do not sign legal documents or make major decisions until the medicine wears off and you can think clearly. The anesthesia can make it hard for you to fully understand what you are agreeing to. Additional Information for Sedation Patients For patients who received sedation: You may have received medications before and/or during your procedure which effects your judgement and reaction time. Do not drive, operate machinery, drink alcoholic beverages or make important decisions for 24 hours. Be careful on stairs as you may be unsteady on your feet. You may eat a regular diet as tolerated. Do not smoke if you are alone. IV site: Slight redness or tenderness is normal, you can use a warm compress if you would like. If tenderness and/or redness increase or if foul drainage occurs, please contact your Doctor. Please call [phone] before 8pm Mon-Fri with problems, questions or concerns. If you call after 8pm or on weekends, call the Hospital at [phone] and ask to speak to the Certified Orthotist/Pedorthist simonizer and the centrifugal drier operator will contact that person for you. When should you call for help? Call [phone] anytime you think you may need emergency care. For example, call if: You passed out (lost consciousness). You pass maroon or bloody stools. You have trouble breathing. Call your doctor now or seek immediate medical care if: You have pain that does not get better after you take pain medicine. You are sick to your stomach or cannot drink fluids. You have new or worse belly pain. You have blood in your stools. You have a fever. You cannot pass stools or gas. Watch closely for changes in your health, and be sure to contact your doctor if you have any problems. Where can you learn more? [facility] View your After Visit Summary and more online at [email or web address] If you would like to provide feedback about your hospital experience, please call the Office of Patient and Family Relations at . If you have received this After Visit Summary in error, please immediately return it in person to the department, or notify the [facility] Privacy Office by calling toll free at between the hours of 8AM and 5PM to arrange for our retrieval of the documents at no cost to you. Content Version: 12.2 ?? 7097-9784 Nursing Home Quality. Care instructions adapted under license by [facility]. If you have questions about a medical condition or this instruction, always ask your healthcare professional. [facility] disclaims any warranty or liability for your use of this information. Colonoscopy: What to Expect at Home Your Recovery Your doctor will talk to you about when you will need your next colonoscopy. Your doctor can help you decide how often you need to be checked. This will depend on the results of your test and your risk for colorectal cancer. After the test, you may be bloated or have gas pains. You may need to pass gas. If a biopsy was done or a polyp was removed, you may have streaks of blood in your stool (feces) for a few days. Problems such as heavy rectal bleeding may not occur until several weeks after the test. This isn't common. But it can happen after polyps are removed. This care sheet gives you a general idea about how long it will take for you to recover. But each person recovers at a different pace. Follow the steps below to get better as quickly as possible. How can you care for yourself at home? Activity Rest when you feel tired. You can do your normal activities when it feels okay to do so. Diet Follow your doctor's directions for eating. Unless your doctor has told you not to, drink plenty of fluids. This helps to replace the fluids that were lost during the colon prep. Do not drink alcohol. Medicines Your doctor will tell you if and when you can restart your medicines. He or she will also give you instructions about taking any new medicines. If you take blood thinners, such as warfarin (Coumadin), clopidogrel (Plavix), or aspirin, be sure to talk to your doctor. He or she will tell you if and when to start taking those medicines again. Make sure that you understand exactly what your doctor wants you to do. If polyps were removed or a biopsy was done during the test, your doctor may tell you not to take aspirin or other anti-inflammatory medicines for a few days. These include ibuprofen (Advil, Motrin) and naproxen (Aleve). Other instructions For your safety, do not drive or operate machinery until the medicine wears off and you can think clearly. Your doctor may tell you not to drive or operate machinery until the day after your test. Do not sign legal documents or make major decisions until the medicine wears off and you can think clearly. The anesthesia can make it hard for you to fully understand what you are agreeing to. Additional Information for Sedation Patients For patients who received sedation: You may have received medications before and/or during your procedure which effects your judgement and reaction time. Do not drive, operate machinery, drink alcoholic beverages or make important decisions for 24 hours. Be careful on stairs as you may be unsteady on your feet. You may eat a regular diet as tolerated. Do not smoke if you are alone. IV site: Slight redness or tenderness is normal, you can use a warm compress if you would like. If tenderness and/or redness increase or if foul drainage occurs, please contact your Doctor. Please call [phone] before 8pm Mon-Fri with problems, questions or concerns. If you call after 8pm or on weekends, call the Hospital at [phone] and ask to speak to the Certified Orthotist/Pedorthist simonizer and the centrifugal drier operator will contact that person for you. When should you call for help? Call [phone] anytime you think you may need emergency care. For example, call if: You passed out (lost consciousness). You pass maroon or bloody stools. You have trouble breathing. Call your doctor now or seek immediate medical care if: You have pain that does not get better after you take pain medicine. You are sick to your stomach or cannot drink fluids. You have new or worse belly pain. You have blood in your stools. You have a fever. You cannot pass stools or gas. Watch closely for changes in your health, and be sure to contact your doctor if you have any problems. Where can you learn more? [facility] View your After Visit Summary and more online at [email or web address] If you would like to provide feedback about your hospital experience, please call the Office of Patient and Family Relations at . If you have received this After Visit Summary in error, please immediately return it in person to the department, or notify the [facility] Privacy Office by calling toll free at between the hours of 8AM and 5PM to arrange for our retrieval of the documents at no cost to you. Content Version: 12.2 ?? 2085-8284 Nursing Home Quality. Care instructions adapted under license by [facility]. If you have questions about a medical condition or this instruction, always ask your healthcare professional. [facility] [employer] disclaims any warranty or liability for your use of this information. Colonoscopy: What to Expect at Home Your Recovery Your doctor will talk to you about when you will need your next colonoscopy. Your doctor can help you decide how often you need to be checked. This will depend on the results of your test and your risk for colorectal cancer. After the test, you may be bloated or have gas pains. You may need to pass gas. If a biopsy was done or a polyp was removed, you may have streaks of blood in your stool (feces) for a few days. Problems such as heavy rectal bleeding may not occur until several weeks after the test. This isn't common. But it can happen after polyps are removed. This care sheet gives you a general idea about how long it will take for you to recover. But each person recovers at a different pace. Follow the steps below to get better as quickly as possible. How can you care for yourself at home? Activity Rest when you feel tired. You can do your normal activities when it feels okay to do so. Diet Follow your doctor's directions for eating. Unless your doctor has told you not to, drink plenty of fluids. This helps to replace the fluids that were lost during the colon prep. Do not drink alcohol. Medicines Your doctor will tell you if and when you can restart your medicines. He or she will also give you instructions about taking any new medicines. If you take blood thinners, such as warfarin (Coumadin), clopidogrel (Plavix), or aspirin, be sure to talk to your doctor. He or she will tell you if and when to start taking those medicines again. Make sure that you understand exactly what your doctor wants you to do. If polyps were removed or a biopsy was done during the test, your doctor may tell you not to take aspirin or other anti-inflammatory medicines for a few days. These include ibuprofen (Advil, Motrin) and naproxen (Aleve). Other instructions For your safety, do not drive or operate machinery until the medicine wears off and you can think clearly. Your doctor may tell you not to drive or operate machinery until the day after your test. Do not sign legal documents or make major decisions until the medicine wears off and you can think clearly. The anesthesia can make it hard for you to fully understand what you are agreeing to. Additional Information for Sedation Patients For patients who received sedation: You may have received medications before and/or during your procedure which effects your judgement and reaction time. Do not drive, operate machinery, drink alcoholic beverages or make important decisions for 24 hours. Be careful on stairs as you may be unsteady on your feet. You may eat a regular diet as tolerated. Do not smoke if you are alone. IV site: Slight redness or tenderness is normal, you can use a warm compress if you would like. If tenderness and/or redness increase or if foul drainage occurs, please contact your Doctor. Please call [phone] before 8pm Mon-Fri with problems, questions or concerns. If you call after 8pm or on weekends, call the Hospital at [phone] and ask to speak to the Certified Orthotist/Pedorthist simonizer and the centrifugal drier operator will contact that person for you. When should you call for help? Call 911 anytime you think you may need emergency care. For example, call if: You passed out (lost consciousness). You pass maroon or bloody stools. You have trouble breathing. Call your doctor now or seek immediate medical care if: You have pain that does not get better after you take pain medicine. You are sick to your stomach or cannot drink fluids. You have new or worse belly pain. You have blood in your stools. You have a fever. You cannot pass stools or gas. Watch closely for changes in your health, and be sure to contact your doctor if you have any problems. Where can you learn more? [facility] View your After Visit Summary and more online at [email or web address] If you would like to provide feedback about your hospital experience, please call the Office of Patient and Family Relations at . If you have received this After Visit Summary in error, please immediately return it in person to the department, or notify the [facility] Privacy Office by calling toll free at between the hours of 8AM and 5PM to arrange for our retrieval of the documents at no cost to you. Content Version: 12.2 ?? 6933-7831 [facility]. Care instructions adapted under license by [facility]. If you have questions about a medical condition or this instruction, always ask your healthcare professional. [facility] [employer] disclaims any warranty or liability for your use of this information. documented in this encounter Medications at Time of Discharge Medication Sig Dispensed Refills Start Date End Date potassium chloride ER (Klor-Con, K-Tab) 10 mEq [...] folic acid (Vitamin B9) 1 mg tablet Take 1 tablet by mouth daily. 30 tablet 1 05/13/2023 07/18/2023 rifAXIMin (Xifaxan) 550 mg tablet Take 1 tablet by mouth 2 times daily for 180 days. 180 tablet 1 04/22/2023 10/19/2023 ferrous sulfate (FeroSul) 324 mg (65 mg iron) DR tablet Take 1 tablet by mouth daily for 90 days. 90 tablet 04/22/2023 07/21/2023 multivitamin Ngsg-Cz-AI-Min (Therapeutic-M) 27-0.4 mg Tablet Take 1 tablet by mouth daily. 90 tablet 3 03/16/2023 12/07/2023 pantoprazole EC (Protonix) [address] tabletIndications:Acut e GI bleeding Take 1 tablet by mouth 2 times daily for 42 days, THEN 1 tablet daily for 96 days. On March 09 start taking 1 pill daily (STOP second pill). 180 tablet 01/25/2023 06/12/2023 furosemide (Lasix) 40 mg tablet Take 1 tablet by mouth daily. 30 tablet 3 01/13/2023 06/07/2023 documented as of this encounter H&P Notes * Tomas Cantor MD - 05/16/2023 2:44 PM EDT Gastroenterology and Hepatology Pre-Procedure History and Physical Exam Procedure: EGD / colo Indication: F/U severe esophagitis, COCO Last EGD 01/2023. No prior colo. Patient Active Problem List Diagnosis Code Alcoholic cirrhosis of liver with ascites K70.31 Acute GI bleeding K92.2 Prolonged Q-T interval on ECG R94.31 Hyponatremia E87.1 Cigarette smoker F17.210 End stage liver disease K72.10 *Severe alcohol use disorder F10.20 EXAM: HEENT: Airway examined, oropharynx clear Mallampati Score: per anesthesia LUNGS: Clear to auscultation HEART: Regular rate and rhythm, normal S1, S2 ABDOMEN: Normal bowel sounds, soft, non tender, non distended A/P: Proceed with the planned endoscopic procedure. ASA 3 - Patient with moderate systemic disease with functional limitations Sedation Plan: anesthesia Risks and benefits of the procedure explained to the patient. Consent form signed and included in the patient's chart. Tomas Cantor MD Advanced Endoscopy Fellow Gastroenterology & Hepatology documented in this encounter Plan of Treatment Upcoming Encounters Date Type Department Care Team (Latest Contact Info) Description 02/01/2024 2:10 PM EST Hospital Encounter [place] [address] Franklin Ramirez MD [address] [place] [address] [place] [address] 02/01/2024 2:10 PM EST - 02/01/2024 4:50 PM EST Surgery [place] [address] Franklin Ramirez MD [address] [place] [address] [place] [address] REPAIR INGUINAL HERNIA, 5 YR OR OLDER, REDUCIBLE (WRVU 7.96) 03/05/2024 11:45 AM EST Office Visit General Surgery at [facility] [address] [address] Franklin Ramirez MD [address] [place] [address] [place] [address] Scheduled Procedures Name Priority Associated Diagnoses Date/Ti mo REPAIR INGUINAL HERNIA, 5 YR OR OLDER, REDUCIBLE (WRVU 7.96) Right inguinal hernia 02/01/2024 2:10 PM EST MODIFIER MESH,BARD FLAT MESH Right inguinal hernia 02/01/2024 2:10 PM EST documented as of this encounter Procedures Procedure Name Priority Date/Time Associated Diagnosis Comments SPECIMEN TO PATHOLOGY Routine 05/16/2023 3:25 PM EDT SURGICAL PATHOLOGY REPORT Routine 05/16/2023 3:17 PM EDT Colonoscopy Flexible W Ablation Tumor Polyp/Other Lesion (39671) 05/16/2023 3:07 PM EDT Alcoholic cirrhosis of liver with ascites Upper Gi Endoscopy, Biopsy ([id number]) 05/16/2023 3:07 PM EDT Alcoholic cirrhosis of liver with ascites UPPER GI ENDOSCOPY Routine 05/16/2023 3: 00 PM EDT COLONOSCOPY Routine 05/16/2023 2:48 PM EDT documented in this encounter Results * Specimen to Pathology (05/16/2023 3:25 PM EDT) AP Specimen 05/16/2023 3:25 PM EDT 05/16/2023 3:25 PM EDT Narrative [facility] - 05/16/2023 3:25 PM EDT Specimen requisition ordered. ??Separate Pathology report to follow Luis Antonio Mendoza MD PATHOLOGY/CYTOLOGY O RDERABLES [facility] [place] [address] * Surgical Pathology Report (05/16/2023 3:17 PM EDT) Final Diagnosis [id number] ? Location: 4T; EA12; A The signing pathologist has (i) examined the relevant preparation(s) for the specimen(s) and (ii) rendered or confirmed the diagnosis(es). . ?Surgical Pathology DIAGNOSIS A - Distal esophagus evaluate for ?? Leiva's ??Esophagus, biopsy (Multiple): - ??Squamocolumna r junctional mucosa (cardia type) with mild chronic inflammation. There is no evidence of intestinal metaplasia. Electronically signed by: ?Omar SANCHEZ, Evita Verified: ??05/30/2023 10:18 ??Pathologist Performed at: ??-[facility] Dept. of Pathology, [place] [address] Motorcycle Sales Associate: Yogi Coronado MD, FCAP, ??CLIA Certificate: [id number] SPECIMEN(S) SUBMITTED A - distal esophagus evaluate for Barretts Esophagus, biopsy (Multiple) CLINICAL INFORMATION 48-year-old male F/you severe esophagitis, COCO last EGD 01/2023 SPECIMEN PROCESSING A - Labeled/Fixativ e: Distal esophagus evaluate for Leiva's esophagus, formalin. Quantity/Size: Four, 0.3-0.6 cm greatest dimension. Tissue Description: Soft, pale-dunn to dunn-pink tissues. Sections/Proces sing: Submitted in toto ??in 1 cassette labeled A1. ??krd 05/30/2023 10:18 AM EDT [facility] GI Biopsy 05/16/2023 3:17 PM EDT 05/16/2023 3:17 PM EDT Tomas Cantor MD PATHOLOGY/CYTOLOGY ORDERABLES [facility] [place] [id number] * UPPER GI ENDOSCOPY (05/16/2023 3:00 PM EDT) UPPER GI ENDOSCOPY [facility] Endoscopy Procedure Date: 05/16/2023 3:00 PM ? Patient Name: Shakir Sexton ? Date of : 1975 ? Age: 48 ? Order #: [id number] ? Instrument Name: [id number] ? Procedure: ? Upper GI endoscopy Indications: ? Follow-up of severe reflux ? esophagitis Providers: ? Luis Antonio Mendoza MD, Tomas Sewell ? Linette Cantor, Rehan Root ? Ramu Referring : ?Monica Kuo Medicines: [...] the ? physician, the nurse, the ? splicer apprentice and the instrument technician apprentice. The ? procedure was verified in the [...] care under ? the supervision of a RACK MAKER was ? determined to be medically ? [...] cancer, and adverse medication ? reactions. The Endoscope was ? introduced through the mouth, and ? advanced to the second part of ? duodenum The upper GI endoscopy was ? accomplished without difficulty. ? The patient tolerated the procedure ? well. ? Findings: ? The Z-line was regular and was found 38 cm from the ? incisors. ? A 3 cm hiatal hernia was present. ? There were esophageal mucosal changes suspicious for ? Leiva's esophagus present in the lower third of the ? esophagus with a 1cm island comprising approximately ? 2/3 of the lumen. Biopsies were taken with a cold ? forceps for histology. ? Small non-bleeding esophageal varices. ? Portal hypertensive gastropathy. ? No gastric varices seen in the fundus in retroflexion. ? The examined duodenum was normal. ? Moderate Sedation: ? See anesthesia notes. Impression: ?- 3 cm hiatal hernia. ? - Healing of prior severe reflux ? esophagitis. ? - Possible underlying Leiva's ? esophagus. Biopsied. ? - Small non-bleeding esophageal ? varices. No gastric varices. ? - Portal hypertensive gastropathy. Recommendation: ?- Await pathology results. ? - Continue PPI. ? - Proceed to colonoscopy. ? Attending Participation: ? I was present and participated during the entire ? procedure, including non-batres portions. ? Luis Antonio Mendoza MD 05/16/2023 4:17:18 PM This report has been signed electronically. Number of Addenda: 0 Note Initiated On: 05/16/2023 3:00 PM PROVATION 05/16/2023 3:00 PM EDT Monica Kuo MD GENERAL SURGICAL ORDERABLES [employer]OVATION * COLONOSCOPY (05/16/2023 2:48 PM EDT) COLONOSCOPY [facility] Endoscopy Procedure Date: 05/16/2023 2:48 PM ? Patient Name: Shakir Sexton ? Date of : 1975 ? Age: 48 ? Order #: [id number] ? Instrument Name: [id number] ? Procedure: ? Colonoscopy Indications: ? Iron deficiency anemia Providers: ? Luis Antonio Mendoza MD, Tomas Sewell ? Linette Cantor, Rehan Root ? Ramu Referring : ?Monica Kuo Medicines: [...] the ? physician, the nurse, the ? splicer apprentice and the instrument technician apprentice. The ? procedure was verified in the [...] care under ? the supervision of a RACK MAKER was ? determined to be medically ? [...] preparation was evaluated ? using the BBPS ([place] Bowel ? Preparation Scale) with scores of: [...] EDT Monica Kuo MD GENERAL SURGICAL ORDERABLES [employer]ATION documented in this encounter Visit Diagnoses Diagnosis Alcoholic cirrhosis of liver with ascites Alcoholic cirrhosis of liver Right inguinal hernia Inguinal hernia without mention of obstruction or gangrene, unilateral or unspecified, (not specified as recurrent) documented in this encounter Administered Medications Inactive Administered Medications - up to 3 most recent administrations Medication Order MAR Action Action Date Dose Rate Site lactated ringers infusion 100 mL/hr, Intravenous, CONTINUOUS, Starting on Tue05/16/23 at 1345, Until Tue05/16/23 at 1633, Endoscopy (Day of Procedure) Rate/Dose Change 05/16/2023 3:49 PM EDT 600 mL/hr New Bag 05/16/2023 1:34 PM EDT 100 mL/hr 100 mL/hr documented in this encounter Active and Recently Administered Medications Due to Daylight Saving Time, this section may contain times in both EST and EDT. Continuous Medication Order 05/14/2023 05/15/2023 05/16/2023 lactated ringers infusion (CANCELED) 100 mL/hr, Intravenous, CONTINUOUS, Starting on Tue05/16/23 at 1345, Until Tue05/16/23 at 1633, Endoscopy (Day of Procedure) 1334 (New Bag - Prov ider: Ramila Aranda RN)1549 (Rate/Dose Change - Provider: Kylah Kidd CRNA) documented in this encounter Care Teams Facing Baster Relationship Specialty Start Date End Date Tonia Hauser PA [address] [place] [address] PCP - General Family Medicine 04/13/23 documented as of this encounter
--- OUTSIDE RECORDS SUMMARY | 2023-12-26 11:40 | XMS_ITS | Encounter Summary ---
Author Organization [facility] Address [facility] [place] [address] Care Team Providers Care Network Engineer Name Role Phone Tonia Hauser Primary Care Provider [phone] Encounter Details Date Type Department Care Team (Late st Contact Info) Description 08/05/2023 Orders Only Gastroenterology at [facility] [place] [address] Rocky Calvert APRN [facility] [place] [place] [address] Alcoholic cirrhosis of liver with ascites Social History Tobacco Use Types Packs/Day Years Used Date Smoking Tobacco: Every Day Cigarettes Smokeless Tobacco: Never Comments:Started smoking at age 18 (1992) DENIES VAPING Alcohol Use Standard Drinks/Week Comments Not Currently 0 (1 standard drink = 0.6 oz pur e alcohol) none since Nov 2022 [facility] Utilities Answer Date Recorded In the past 12 months has [employer], gas, oil, or water [employer] threatened to shut off services in your [...] PM EST Hospital Encounter [place] [address] Franklin Ramirez MD [address] [place] [address] [place] [address] 02/01/2024 2:10 PM EST - 02/01/2024 4:50 PM EST Surgery [place] [address] Franklin Ramirez MD [address] [place] [address] [place] [address] REPAIR INGUINAL HERNIA, 5 YR OR OLDER, REDUCIBLE (WRVU 7.96) 03/05/2024 11:45 AM EST Office Visit General Surgery at [address] [id number] Franklin Ramirez MD [address] [place] [address] [place] [address] Scheduled Procedures Name Priority Associated Diagnoses Date/Ti nj REPAIR INGUINAL HERNIA, 5 YR OR OLDER, REDUCIBLE (WRVU 7.96) Right inguinal hernia 02/01/2024 2:10 PM EST MODIFIER MESH,BARD FLAT MESH Right inguinal hernia 02/01/2024 2:10 PM EST documented as of this encounter Results * (ABNORMAL) Prothrombin Time (11/09/2023 12:02 PM EDT) [facility] Prothrombin Time 14.5(H) 9.4 - 12.5 sec 11/09/2023 12:55 PM EDT [facility] International Normalization Ratio 1.3 <=4.9 11/09/2023 12:55 PM EDT [facility] Comment: An INR < 2.0 indicates [...] EDT 11/09/2023 12:02 PM EDT Rocky Calvert PIPE PRODUCTION WORKER HEMATOLOGY ORDERAB LES [facility] [place] [address] * (ABNORMAL) Comprehensive metabolic panel (non-fasting) (11/09/2023 12:02 PM EDT) [facility] Glucose 97 65 - 99 mg/dL 11/09/2023 1:11 PM [facility] Comment: Fasting Glucose Interpretive Criteria: Normal: 65-99 mg/dL ?? Prediabetes: 100-125 mg/dL ?? Consistent with Diabetes Mellitus: > or = 126 mg/dL ?? Classification and Diagnosis of Diabetes: Standards of Care in Diabetes - 2022. Diabetes Care 2022; 46:S19. Fasting is defined as no caloric intake for at least 8 hours. Blood Urea Nitrogen 9(L) 10 - 20 mg/dL 11/09/2023 1:11 PM [facility] Creatinine 0.68(L) 0.80 - 1.50 mg/dL 11/09/2023 1:11 PM [facility] Sodium 138 135 - 145 mMol/L 11/09/2023 1:11 PM [facility] Potassium 4.3 3.5 - 5.0 mMol/L 11/09/2023 1:11 PM [facility] Chloride 102 98 - 107 mMol/L 11/09/2023 1:11 PM [facility] Carbon Dioxide 23 22 - 31 mMol/L 11/09/2023 1:11 PM [facility] Anion Gap 13 5 - 15 mMol/L 11/09/2023 1:11 PM [facility] Calcium 10.2 8.5 - 10.5 mg/dL 11/09/2023 1:11 PM [facility] Protein, Total 7.7 6.1 - 8.0 g/dL 11/09/2023 1:11 PM [facility] Albumin 4.3 3.2 - 5.2 g/dL 11/09/2023 1:11 PM [facility] Aspartate Aminotransferase 35 <=39 unit/L 11/09/2023 1:11 PM [facility] Alanine Aminotransferase 15 0 - 55 unit/L 11/09/2023 1:11 PM EDT [facility] Alkaline Phosphatase 106 40 - 130 unit/L 11/09/2023 1:11 PM EDT [facility] Bilirubin, Total 1.1 <=1.3 mg/dL 11/09/2023 1:11 PM EDT [facility] Est Glomerular Filtration Rate - Male 114 mL/min/1. 73 m?? 11/09/2023 1:11 PM EDT [facility] Comment: This patient's estimated [...] Fasting Status Yes 11/09/2023 1:11 PM EDT [facility] Blood VENOUS BLOOD SPECIMEN / Unknown Venipuncture / Unknown 11/09/2023 12:02 PM EDT 11/09/2023 12:02 PM EDT Rocky Calvert PIPE PRODUCTION WORKER CHEMISTRY ORDERABL ES [facility] [place] [address] * (ABNORMAL) CBC (with Diff) (11/09/2023 12:02 PM EDT) White Blood Cell 6.11 4.00 - 9.50 x10(3)/mc L 11/09/2023 12:42 PM EDT [facility] Red Blood Cell 4.62 4.58 - 5.54 x10(6)/mc L 11/09/2023 12:42 PM EDT [facility] Hemoglobin 13.6(L) 13.7 - 16.5 g/dL 11/09/2023 12:42 PM [facility] Hematocrit 40.0(L) 40.5 - 48.5 % 11/09/2023 12:42 PM [facility] Mean Cell Volume 86.6 82.9 - 93.1 fL 11/09/2023 12:42 PM [facility] Mean Cell Hemoglobin 29.4 27.5 - 32.1 pg 11/09/2023 12:42 PM [facility] Mean Cell Hemoglobin Concentration 34.0 32.0 - 35.7 g/dL 11/09/2023 12:42 PM [facility] Platelet 141(L) 145 - 357 x10(3)/mc L 11/09/2023 12:42 PM [facility] Mean Platelet Volume 9.8 7.6 - 12.9 fL 11/09/2023 12:42 PM [facility] RDW Standard Deviation 49.5(H) 36.0 - 45.0 fL 11/09/2023 12:42 PM [facility] RDW coefficient of variation 15.8(H) 11.4 - 13.8 % 11/09/2023 12:42 PM [facility] NRBC% auto 0.0 % 11/09/2023 12:42 PM [facility] NRBC Absolute 0.00 0.00 - 0.00 x10(3)/mc L 11/09/2023 12:42 PM [facility] Neutrophil % 53.0 % 11/09/2023 12:42 PM [facility] Neutrophil Absolute (ANC) - Automated 3.24 1.70 - 6.10 x10(3)/mc L 11/09/2023 12:42 PM [facility] Lymph % 30.8 % 11/09/2023 12:42 PM [facility] Lymph Absolute 1.88 0.90 - 3.20 x10(3)/mc L 11/09/2023 12:42 PM EDT [facility] Monocyte % 12.1 % 11/09/2023 12:42 PM EDT [facility] Monocyte Absolute 0.74 0.30 - 0.90 x10(3)/mc L 11/09/2023 12:42 PM EDT [facility] Eos % 2.9 % 11/09/2023 12:42 PM EDT [facility] Eos Absolute 0.18 0.00 - 0.40 x10(3)/mc L 11/09/2023 12:42 PM EDT [facility] Basophil % 0.7 % 11/09/2023 12:42 PM EDT [facility] Baso Absolute 0.04 0.00 - 0.10 x10(3)/mc L 11/09/2023 12:42 PM EDT [facility] Immature Gran % 0.5 % 12:42 PM EDT [facility] Immature Gran Absolute 0.03 0.00 - 0.04 x10(3)/mc L 11/09/2023 12:42 PM EDT [facility] Blood VENOUS BLOOD SPECIMEN / Unknown Venipuncture / Unknown 11/09/2023 12:02 PM EDT 11/09/2023 12:02 PM EDT Rocky Calvert PIPE PRODUCTION WORKER HEMATOLOGY ORDERAB LES [facility] [place] [address] * US Abdomen Limited Hepatology Protocol (11/09/2023 11:22 AM EDT) WORKSTATION ID [id number] RAD Anatomical Region Laterality Modality Abdomen Ultrasound [...] Orville Clark MD at 11/09/2023 11:48 AM Thank you for letting us participate in the care of this patient. If you are a health care provider and have any questions regarding this report, please contact the number above. For patients who have questions, please contact the health post acute care nurse practitioner that requested your imaging first. ? Orville Clark, Physician Electronically Signed Final Report ?? 11/09/2023 11:54 am Narrative 11/09/2023 11:55 AM EDT Abdominal ? (Signed Final 11/09/2023 11:54 am) PATIENT INFO: ID #: ? [id number] ?: ??[birth year] (48 yrs)(M) Name: ? MONISHA SEXTON ? Visit Date: 11/09/2023 11:20 am PERFORMED BY: Attending: ?Orville Clark MD Resident: ? Jackelyn Elliott MD Performed By: ? Brenda Reyes RDMS Referred By: ?ROCKY CALVERT Location: ? [place] SERVICE(S) PROVIDED: [facility] - Hepatology Protocol - Abdominal ?24095 Limited Survey Single Organ or Quadrant - [id number] INDICATIONS: cirrhosis COMPARISON: US abdomen limited hepatology [...] 11/09/2023 11:54 am) PATIENT INFO: ID #: [id number] : [birth year] (48 yrs)(M) Name: MONISHA SEXTON Visit Date: 11/09/2023 11:20 am PERFORMED BY: Attending: Orville Clark MD Resident: Jackelyn Elliott MD Performed By: Brenda Reyes RDMS Referred By: ROCKY CALVERT Location: [place] SERVICE(S) PROVIDED: [facility] - Hepatology Protocol - Abdominal 22527 Limited Survey Single Organ or Quadrant - [id number] INDICATIONS: cirrhosis COMPARISON: US abdomen limited hepatology [...] Orville Clark MD at 11/09/2023 11:48 AM Thank you for letting us participate in the care of this patient. If you are a health care provider and have any questions regarding this report, please contact the number above. For patients who have questions, please contact the health post acute care nurse practitioner that requested your imaging first. Orville Clark, Physician Electronically Signed Final Report 11/09/2023 11:54 am Rocky Calvert PIPE PRODUCTION WORKER IMG US GEN ORDERAB LES documented in this encounter Visit Diagnoses Diagnosis Alcoholic cirrhosis of liver with ascites Alcoholic cirrhosis of liver Alcoholic cirrhosis of liver with ascites Alcoholic cirrhosis of liver Right inguinal hernia Inguinal hernia without mention of obstruction or gangrene, unilateral or unspecified, (not specified as recurrent) documented in this encounter Care Teams Network Engineer Relationship Specialty Start Date End Date Tonia Hauser PA [address] [place] [address] PCP - General Family Medicine 04/13/23 documented as of this encounter
--- OUTSIDE RECORDS SUMMARY | 2023-12-26 11:40 | XMS_ITS | Encounter Summary ---
Author Organization [facility] Address [facility] [place] [address] Care Team Providers Care Sales Order Clerk Name Role Phone Tonia Hauser Primary Care Provider [phone] Encounter Details Date Type Department Care Team (Latest Contact Info) Description 05/16/2023 1:19 PM EDT - 05/16/2023 4:41 PM EDT Hospital En[place] [address] Luis Antonio Mendoza MD [facility] [place] [address] Discharge Disposition: Home Social History Tobacco Use [...] Recorded In the past 12 months has [employer], gas, oil, or water [employer] threatened to shut off services in your [...] Sign Reading Time Taken Comments Blood Pressure 109/68 05/16/2023 4:15 PM EDT Pulse 75 05/16/2023 3:56 PM EDT Temperature 36.5 ??C (97.7 ??F) 05/16/2023 1:31 PM ED T Respiratory Rate 15 05/16/2023 4:15 PM EDT Oxygen Saturation 98% 05/16/2023 4:15 PM EDT Inhaled Oxygen Concentration - - [...] the day after the procedure, use an tacq-vvp-ewmuaxl spray to numb your throat. Sucking on [...] occurs, please contact your Doctor. Please call [phone] before 8pm Mon-Fri with problems, questions or concerns. If you call after 8pm or on weekends, call the Hospital at [phone] and ask to speak to the Back Wedger instructor of education and the turbo electric operator will contact that person for you. When should you call for help? Call [phone] anytime you think you may need emergency [...] any problems. Where can you learn more? [facility] View your After Visit Summary and more online at [email or web address] If you would like to provide feedback about your hospital experience, please call the Office of Patient and Family Relations at . If you have received this After Visit Summary in error, please immediately return it in person to the department, or notify the [facility] Privacy Office by calling toll free at between the hours of 8AM and 5PM to arrange for our retrieval of the documents at no cost to you. Content Version: 12.2 ?? 1412-6507 [employer]. Care instructions adapted under license by [facility]. If you have questions about a medical condition or this instruction, always ask your healthcare professional. [employer] disclaims any warranty or liability for your [...] occurs, please contact your Doctor. Please call [phone] before 8pm Mon-Fri with problems, questions or concerns. If you call after 8pm or on weekends, call the Hospital at [phone] and ask to speak to the Back Wedger instructor of education and the turbo electric operator will contact that person for you. When should you call for help? Call [phone] anytime you think you may need emergency [...] any problems. Where can you learn more? [facility] View your After Visit Summary and more online at [email or web address] If you would like to provide feedback about your hospital experience, please call the Office of Patient and Family Relations at . If you have received this After Visit Summary in error, please immediately return it in person to the department, or notify the [facility] Privacy Office by calling toll free at between the hours of 8AM and 5PM to arrange for our retrieval of the documents at no cost to you. Content Version: 12.2 ?? 2906-9911 [employer]. Care instructions adapted under license by [facility]. If you have questions about a medical condition or this instruction, always ask your healthcare professional. [employer] disclaims any warranty or liability for your [...] occurs, please contact your Doctor. Please call [phone] before 8pm Mon-Fri with problems, questions or concerns. If you call after 8pm or on weekends, call the Hospital at [phone] and ask to speak to the Back Wedger instructor of education and the turbo electric operator will contact that person for you. When should you call for help? Call [phone] anytime you think you may need emergency [...] any problems. Where can you learn more? [facility] View your After Visit Summary and more online at [email or web address] If you would like to provide feedback about your hospital experience, please call the Office of Patient and Family Relations at . If you have received this After Visit Summary in error, please immediately return it in person to the department, or notify the [facility] Privacy Office by calling toll free at between the hours of 8AM and 5PM to arrange for our retrieval of the documents at no cost to you. Content Version: 12.2 ?? [phone] [employer]. Care instructions adapted under license by [facility]. If you have questions about a medical condition or this instruction, always ask your healthcare professional. [employer] disclaims any warranty or liability for your [...] 90 days. 90 tablet 04/22/2023 07/21/2023 multivitamin Uykp-Cc-KF-Min (Therapeutic-M) 27-0.4 mg Tablet Take 1 tablet [...] PM EST Hospital Encounter [place] [address] Franklin Ramirez MD [address] [place] [address] [place] [address] 02/01/2024 2:10 PM EST - 02/01/2024 4:50 PM EST Surgery [place] [address] Franklin Ramirez MD [address] [place] [address] [place] [address] REPAIR INGUINAL HERNIA, 5 YR OR OLDER, REDUCIBLE (WRVU 7.96) 03/05/2024 11:45 AM EST Office Visit General Surgery at [facility] [address] [address] Franklin Ramirez MD [address] [place] [address] [place] [address] Scheduled Procedures Name Priority Associated Diagnoses Date/Ti [...] Colonoscopy Flexible W Ablation Tumor Polyp/Other Lesion (08671) 05/16/2023 3:07 PM EDT Alcoholic cirrhosis of liver with ascites Upper Gi Endoscopy, Biopsy (91402) 05/16/2023 3:07 PM EDT Alcoholic cirrhosis of liver with ascites UPPER GI ENDOSCOPY Routine 05/16/2023 3: 00 PM EDT COLONOSCOPY Routine 05/16/2023 2:48 PM EDT documented in this encounter Results * Specimen to Pathology (05/16/2023 3:25 PM EDT) AP Specimen 05/16/2023 3:25 PM EDT 05/16/2023 3:25 PM EDT Narrative [facility] - 05/16/2023 3:25 PM EDT Specimen requisition ordered. ??Separate Pathology report to follow Luis Antonio Mendoza MD PATHOLOGY/CYTOLOGY O RDERABLES [facility] [address] * Surgical Pathology Report (05/16/2023 3:17 PM EDT) Final Diagnosis [id number] ? Location: 4T; EA12; A The signing [...] Evita Verified: ??05/30/2023 10:18 ??Pathologist Performed at: ??[facility] [place], [place] [address] Director Of Institutional Giving: Yogi Coronado MD, FCAP, ??CLIA Certificate: [id number] SPECIMEN(S) SUBMITTED A - distal esophagus evaluate [...] labeled A1. ??krd 05/30/2023 10:18 AM EDT [facility] GI Biopsy 05/16/2023 3:17 PM EDT 05/16/2023 3:17 PM EDT Tomas Cantor MD PATHOLOGY/CYTOLOGY ORDERABLES [facility] [place] [address] * UPPER GI ENDOSCOPY (05/16/2023 3:00 PM EDT) UPPER GI ENDOSCOPY [facility] Endoscopy Procedure Date: 05/16/2023 3:00 PM ? Patient Name: Shakir Sexton ? Date of : 1975 ? Age: 48 ? Order #: [id number] ? Instrument Name: [id number]- [id number] ? Procedure: ? Upper GI endoscopy Indications: ? Follow-up of severe reflux ? esophagitis Providers: ? Luis Antonio Mendoza MD, Tomas Sewell ? Devaughn, Linette Yan, Rehan Carr. ? Ramu Referring : ?Monica Kuo Medicines: [...] the ? physician, the nurse, the ? tub tender and the diesel maintenance technician. The ? procedure was verified in [...] care under ? the supervision of a PRINTING AGENT was ? determined to be medically ? [...] * COLONOSCOPY (05/16/2023 2:48 PM EDT) COLONOSCOPY [facility] Endoscopy Procedure Date: 05/16/2023 2:48 PM ? Patient Name: Shakir Sexton ? Date of : 1975 ? Age: 48 ? Order #: [id number] ? Instrument Name: [id number] ? Procedure: ? Colonoscopy Indications: ? Iron deficiency anemia Providers: ? Luis Antonio Mendoza MD, Tomas Sewell ? Linette Cantor, Rehan Root ? Ramu Referring : ?Monica Zunigahenwald Medicines: ? Monitored Anesthesia Care Complications: ? [...] the ? physician, the nurse, the ? tub tender and the diesel maintenance technician. The ? procedure was verified in [...] care under ? the supervision of a PRINTING AGENT was ? determined to be medically ? [...] preparation was evaluated ? using the BBPS ([place] Bowel ? Preparation Scale) with scores of: [...] [employer] documented in this encounter Visit Diagnoses Not on filedocumented in this encounter Administered Medications Inactive Administered Medications - up to 3 most recent administrations Medication Order MAR Action Action Date Dose Rate Site lactated ringers infusion 100 mL/hr, Intravenous, CONTINUOUS, Starting on 05/16/23 at 1345, Until Tue05/16/23 at 1633, Endoscopy [...] CRNA) documented in this encounter Care Teams Sales Order Clerk Relationship Specialty Start Date End Date Tonia Hauser PA [address] [place] [address] PCP - General Family Medicine 04/13/23 documented as of this encounter
--- OUTSIDE RECORDS SUMMARY | 2023-12-26 11:40 | XMS_ITS | Encounter Summary ---
Author Organization [facility] [address] Care Team Providers Care Grocery Carrier Name Role Phone Tonia Hauser Primary Care Provider [phone] Reason for Visit * Reason Comments Medication Refill Encounter Details Date Type Department Care Team (Late Contact Info) Description 09/19/2023 Refill Family Medicine at [address] [place] [address] Tonia Hauser PA [address] [facility] [place] [address] Social History Tobacco Use Types Packs/Day Years Used Date Smoking Tobacco: Every Day Cigarettes Smokeless Tobacco: Never Comments:Started smoking at age 18 (1992) DENIES VAPING Alcohol Use Standard Drinks/Week Comments Not Currently 0 (1 standard drink = 0.6 oz pur e alcohol) none since Nov 2022 [facility] Utilities Answer Date Recorded In the past 12 months has datatracker, gas, oil, or water [employer] threatened to shut off services in your [...] encounter Miscellaneous Notes * Telephone Encounter - AloAyanna huertas [facility] - 09/21/2023 11:12 AM EDT Prescription Renewal Request Name: Shakir Sexton : 1975 Prescription(s) Requested: Requested Prescriptions Pending Prescriptions Disp Refills furosemide (Lasix) 40 mg tablet [Pharmacy Med Name: FUROSEMIDE 40 MG TABLET] 30 tablet 3 Sig: TAKE ONE TABLET BY MOUTH EVERY DAY Date of Encounter last in This Dept (If need an appointment send to secretaries to schedule): 03/15/23 Next Encounter in This Dept: Visit date not found Date of Last Refill (for each medication): 06/07/23 Medication category requirements (labs etc): n/a Status of request: Pended No Known Allergies Ayanna Prajapati CMA 09/21/23 11:12 AM documented in this encounter Plan of Treatment Upcoming Encounters Date Type Department Care Team (Latest Contact Info) Description 02/01/2024 2:10 PM EST Hospital Encounter [place] [address] Franklin Ramirez MD [address] [place] [address] [place] [address] 02/01/2024 2:10 PM EST - 02/01/2024 4:50 PM EST Surgery [place] [address] Franklin Ramirez MD [address] [place] [id number] REPAIR INGUINAL HERNIA, 5 YR OR OLDER, REDUCIBLE (WRVU 7.96) 03/05/2024 11:45 AM EST Office Visit General Surgery at [address] [address] Franklin Ramirez MD [address] [place] [address] [place] [address] Scheduled Procedures Name Priority Associated Diagnoses Date/Ti dc REPAIR INGUINAL HERNIA, 5 YR OR OLDER, REDUCIBLE (WRVU 7.96) Right inguinal hernia 02/01/2024 2:10 PM EST MODIFIER MESH,BARD FLAT MESH Right inguinal hernia 02/01/2024 2:10 PM EST documented as of this encounter Visit Diagnoses Not on filedocumented in this encounter Care Teams Grocery Carrier Relationship Specialty Start Date End Date Tonia Hauser PA [address] [place] [address] PCP - General Family Medicine 04/13/23 documented as of this encounter
--- OUTSIDE RECORDS SUMMARY | 2023-12-26 11:41 | XMS_ITS | Encounter Summary ---
Author Organization [facility] Address [facility] [place] [address] Care Team Providers Care Digital Technician Name Role Phone Unknown Primary Care Provider Unavailabl e Encounter Details Date Type Department Care Team (Late st Contact Info) Description 02/07/2023 Notes Only Internal Medicine at [facility] [place] [phone] Isabel Pickard MD [facility] [place] [address] Social History Tobacco Use Types Packs/Day Years Used Date Smoking Tobacco: Every Day Cigarettes 1.5 30 Smokeless Tobacco: Never Alcohol Use Standard Drinks/Week Comments Never 0 (1 standard drink = 0.6 oz pur e alcohol) [facility] Inpatient Questions Answer Date Recorded Does Anyone [...] as of this encounter Progress Notes * Isabel Pickard MD - 02/07/2023 9:10 AM EST 02/07/23 9:11 AM Cancelled d/t weather. Will ask secs for follow-up next Tuesday AM 1 week. Isabel Pickard MD documented in this encounter Plan of Treatment Upcoming Encounters Date Type Department Care Team (Latest Contact Info) Description 02/01/2024 2:10 PM EST Hospital Encounter [place] [address] Franklin Ramirez MD [address] [place] [address] [place] [address] 02/01/2024 2:10 PM EST - 02/01/2024 4:50 PM EST Surgery [place] [address] Franklin Ramirez MD [address] [place] [address] REPAIR INGUINAL HERNIA, 5 YR OR OLDER, REDUCIBLE (WRVU 7.96) 03/05/2024 11:45 AM EST Office Visit General Surgery at [address] [address] Franklin Ramirez MD [address] [place] [address] Scheduled Procedures Name Priority Associated Diagnoses Date/Ti pa REPAIR INGUINAL HERNIA, 5 YR OR OLDER, REDUCIBLE (WRVU 7.96) Right inguinal hernia 02/01/2024 2:10 PM EST MODIFIER MESH,BARD FLAT MESH Right inguinal hernia 02/01/2024 2:10 PM EST documented as of this encounter Visit Diagnoses Not on filedocumented in this encounter Care Teams Digital Technician Relationship Specialty Start Date End Date Unknown None PCP - General 12/21/13 02/10/23 documented as of this encounter
--- OUTSIDE RECORDS SUMMARY | 2023-12-26 11:41 | XMS_ITS | Encounter Summary ---
Author Organization [facility] Address [facility] [place] [address] Care Team Providers Care Art Psychotherapist Or Therapist Name Role Phone Tonia Hauser Primary Care Provider [phone] Encounter Details Date Type Department Care Team (Late st Contact Info) Description 02/22/2023 Telephone Gastroenterology at [facility] [place] [address] Faith Hernandez Social History Tobacco Use Types Packs/Day Years Used Date Smoking Tobacco: Every Day Cigarettes 1.5 30 Smokeless Tobacco: Never Alcohol Use Standard Drinks/Week Comments Never 0 (1 standard drink = 0.6 oz pur e alcohol) [facility] Inpatient Questions Answer Date Recorded Does Anyone [...] encounter Miscellaneous Notes * Telephone Encounter - Faith Hernandez - 02/22/2023 12:17 PM EST 02/22/23-clld pt to sched egd/colo. He would like to have them closer to home. Is calling his new PCP in [place], [place] to see if he will send a referral to somewhere closer to him.-LRL documented in this encounter Plan of Treatment Upcoming Encounters Date Type Department Care Team (Latest Contact Info) Description 02/01/2024 2:10 PM EST Hospital Encounter [place] [address] Franklin Ramirez MD [address] [place] [address] [place] [address] 02/01/2024 2:10 PM EST - 02/01/2024 4:50 PM EST Surgery [place] [phone] Franklin Ramirez MD [address] [place] [address] REPAIR INGUINAL HERNIA, 5 YR OR OLDER, REDUCIBLE (WRVU 7.96) 03/05/2024 11:45 AM EST Office Visit General Surgery at [facility] [address] [address] Franklin Ramirez MD [address] [place] [address] [place] [address] Scheduled Procedures Name Priority Associated Diagnoses Date/Ti vt REPAIR INGUINAL HERNIA, 5 YR OR OLDER, REDUCIBLE (WRVU 7.96) Right inguinal hernia 02/01/2024 2:10 PM EST MODIFIER MESH,BARD FLAT MESH Right inguinal hernia 02/01/2024 2:10 PM EST documented as of this encounter Visit Diagnoses Not on filedocumented in this encounter Care Teams Art Psychotherapist Or Therapist Relationship Specialty Start Date End Date Tonia Hauser PA [address] [place] [address] PCP - General Family Medicine 02/11/23 03/27/23 documented as of this encounter
--- OUTSIDE RECORDS SUMMARY | 2023-12-26 11:41 | XMS_ITS | Encounter Summary ---
Author Organization [facility] [place] [address] Care Team Providers Care Therapist Rrt Name Role Phone Unknown Primary Care Provider Unavailabl e Encounter Details Date Type Department Care Team (Latest Contact Info) Description 01/25/2023 9:45 AM EST Laboratory Appointment Lab at [facility] [address] [place] [address] Neutropenia, unspecified type; Alcoholic cirrhosis of liver with ascites Social History Tobacco Use Types Packs/Day Years Used Date Smoking Tobacco: Every Day Cigarettes 1.5 30 Smokeless Tobacco: Never Alcohol Use Standard Drinks/Week Comments Never 0 (1 standard drink = 0.6 oz pur e alcohol) [facility] Inpatient Questions Answer Date Recorded [...] PM EST Hospital Encounter [place] [address] Franklin Ramirez MD [address] [place] [address] [place] [address] 02/01/2024 2:10 PM EST - 02/01/2024 4:50 PM EST Surgery [place] [address] Franklin Ramirez MD [address] [place] [address] [place] [address] REPAIR INGUINAL HERNIA, 5 YR OR OLDER, REDUCIBLE (WRVU 7.96) 03/05/2024 11:45 AM EST Office Visit General Surgery at [facility] [address] [place] [phone] Franklin Ramirez MD [address] [place] [address] [place] [address] Scheduled Procedures Name Priority Associated Diagnoses Date/Ti ma REPAIR INGUINAL HERNIA, 5 YR OR OLDER, REDUCIBLE (WRVU 7.96) Right inguinal hernia 02/01/2024 2:10 PM EST MODIFIER MESH,BARD FLAT MESH Right inguinal hernia 02/01/2024 2:10 PM EST documented as of this encounter Procedures Procedure Name Priority Date/Time Associated Diagnosis Comments PATHOLOGY SLIDE REVIEW Routine 01/25/2023 9:57 AM EST Neutropenia, unspecified type PATHOLOGY SLIDE REVIEW Routine 01/25/2023 9:57 AM EST SCAN, PERIPHERAL BLOOD Routine 01/25/2023 9:57 AM EST HEMOGRAM Routine 01/25/2023 9:57 AM EST Neutropenia, unspecified type DIFFERENTIAL, AUTOMATED Routine 01/25/2023 9:57 AM EST Neutropenia, unspecified type HEPATITIS C ANTIBODY Routine 01/25/2023 9:57 AM EST Neutropenia, unspecified type Alcoholic cirrhosis of liver with ascites BETTY-HARMON VIRUS ANTIBODIES Routine 01/25/2023 9:57 AM EST Neutropenia, unspecified type Alcoholic cirrhosis of liver with ascites CMV ANTIBODY, IGM Routine 01/25/2023 9:5 7 AM EST Neutropenia, unspecified type Alcoholic cirrhosis of liver with ascites COPPER, SERUM Routine 01/25/2023 9:57 AM EST Neutropenia, unspecified type Alcoholic cirrhosis of liver with ascites HEPATITIS B CORE ANTIBODY, TOTAL Routine 01/25/2023 9:57 AM EST Neutropenia, unspecified type Alcoholic cirrhosis of liver with ascites HIV SCREEN, 4TH GENERATION [place]CG[place] Routine 01/25/2023 9:57 AM EST Neutropenia, unspecified type Alcoholic cirrhosis of liver with ascites HEPATITIS B SURFACE ANTIGEN Routine 01/25/2023 9:57 AM EST Neutropenia, unspecified type Alcoholic cirrhosis of liver with ascites CBC (WITH DIFF) Routine 01/25/2023 9:57 AM EST Neutropenia, unspecified type documented in this encounter Results * Smear Review Report (01/25/2023 9:57 AM EST) Smear Review Report [id number] ? Location: [facility] The signing pathologist has (i) examined the relevant preparation(s) for the specimen(s) and (ii) rendered or confirmed the diagnosis(es). . ? Smear Review DIAGNOSIS PERIPHERAL BLOOD, SMEAR: ?? 1. ??Absolute neutropenia (0.11 K/uL) ?? 2. ??Moderate normochromic /normocytic anemia Electronically signed by: ?Chase Mcghee MD Verified: ??01/25/2023 18:33 ??[address] Performed at: ??-[facility] [place], [place] [address] Building Construction Inspector: Yogi Coronado MD, FCAP, ??CLIA Certificate: [id number] DISCUSSION No diagnostic morphologic abnormalities, such as significantly increased schistocytes (>1%) or overt features of dyspoiesis, are appreciated. Factors which could contribute to this normocytic anemia may include EtOH/toxin exposures, splenomegaly or blood loss. If there is clinical concern for hemolysis, correlation with additional laboratory testing is recommended; LDH, bilirubin, reticulocyte count, haptoglobin, DIC screen, and direct antiglobulin testing may provide a more definitive evaluation. There are many potential causes for acquired neutropenia including various infections, medications, nutritional deficits, autoimmunity, and rheumatologic conditions (among others). Large granular lymphocytes do not appear significantly increased in number, and given the lack of morphologic abnormalities primary disorder of hematopoiesis is not favored. ADDITIONAL STUDIES WBC 3.3K/uL, RBC 3.2M/uL, HGB 9.9g/dL, MCV 92.2fL, RDW 15.9%, PLT 212K/uL Red cells: ??Normochromic /normocytic anemia, polychromasia not significantly increased, poikilocytes: lobo cells, target cells, acanthocytes, ovalocytes, rare schistocytes (<1%). Leukocytes: ANC 0.11 K/uL, AMC 1.8 K/uL, other subsets within reference limits. Unremarkable morphology. Platelets: Normal morphology. CLINICAL INFORMATION A 48 year old man for whom smear review was requested to evaluate new isolated neutropenia in the setting of EtOH related cirrhosis. [facility] 01/25/2023 9:57 AM EST Isabel Pickard MD HEMATOLOGY ORDERABLE S [facility] [place] [address] * Scan, Peripheral Blood (01/25/2023 9:57 AM EST) Plat estimate Normal [facility] RBC Morphology Abnormal [facility] Ovalocytes 1-5 /HPF [facility] HOSP ITAL LABORATORY Lobo Cells 6-10 /HPF [facility] Acanthocytes 1-5 /HPF [facility] SP[facility] Blood 01/25/2023 9:57 AM EST 01/25/2023 1:04 PM EST Narrative Resulting Agency Comment Spec In Lab Isabel Pickard MD [place] [address] * (ABNORMAL) Differential, Automated (01/25/2023 9:57 AM EST) Neutrophil % 3.4 % [facility] Neutrophil Absolute 0.11(Crit ical) 1.70 - 6.10 x10(3)/mc L [facility] Comment: This result has been called to DARON VELAZCO by Ihsan Miner on 01 25 2023 at 1400, and has been read back. Lymph % 37.4 % [facility] Lymphocytes Abs 1.2 0.9 - 3.2 x10(3)/mc L [facility] Monocyte % 55.5 % [facility] Monocyte Abs 1.8(H) 0.3 - 0.9 x10(3)/ L [facility] Eos % 2.8 % [facility] Eosinophils Abs 0.1 0.0 - 0.4 x10(3)/mc L [facility] Basophil % 0.9 % [facility] Baso Absolute 0.0 0.0 - 0.1 x10(3)/mc L [facility] Immature Gran % 0.00 % [facility] Comment: Immature granulocytes(IG's)percentage and absolute count will include metamyelocytes, myelocytes, and promyelocytes. Blood smears from CBCs yielding IG's will be scanned manually for concordance. If this scan disagrees with the automated IG or if promyelocytes are noted, a manual differential will be performed. Immature Gran Absolute 0.00 0.00 - 0.04 x10(3)/mc L [facility] Blood 01/25/2023 9:57 AM EST 01/25/2023 1:04 PM EST Narrative Resulting Agency Comment Spec In Lab Isabel Pickard MD HEMATOLOGY ORDERABLE S [facility] [place] [address] * (ABNORMAL) Hemogram (01/25/2023 9:57 AM EST) White Blood Cell 3.3(L) 4.0 - 9.5 x10(3)/mc L [facility] Red Blood Cell 3.22(L) 4.58 - 5.54 x10(6)/mc L [facility] Hemoglobin 9.9(L) 13.7 - 16.5 g/dL [facility] Hematocrit 29.7(L) 40.5 - 48.5 % [facility] Mean Cell Volume 92.2 82.9 - 93.1 fL [facility] Mean Cell Hemoglobin 30.7 27.5 - 32.1 pg [facility] Mean Cell Hemoglobin Concentration 33.3 32.0 - 35.7 g/dL [facility] Platelet 212 145 - 357 x10(3)/mc L [facility] RDW Standard Deviation 53.8(H) 36.0 - 45.0 fL [facility] RDW coefficient of variation 15.9(H) 11.4 - 13.8 % [facility] Mean Platelet Volume 10.0 7.6 - 12.9 fL [facility] NRBC% auto 0.0 % [facility] NRBC Absolute 0.000 0.000 - 0.000 x10(3)/ L [facility] Blood 01/25/2023 9:57 AM EST 01/25/2023 1:04 PM EST Narrative Resulting Agency Comment Spec In Lab Isabel Pickard MD HEMATOLOGY ORDERABLE S [facility] [place] [address] * Peripheral Smear Review (01/25/2023 9:57 AM EST) Peripheral Smear Review See Comment [facility] Comment: When completed by the Pathologist, report [id number] will display under Hematopathology Reports. Blood 01/25/2023 9:57 AM EST 01/25/2023 1:04 PM EST Narrative Resulting Agency Comment Spec In Lab Alyson Phelps MD HEMATOLOGY ORDERABLE S Performing Organization Address [facility] Co de Phone Number [facility] [place] [address] * HIV Screen, 4th Generation (MC/CGP/APD/NLH) (01/25/2023 9:57 AM EST) HIV Ab/Ag Screen Negative Negative [facility] Comment: This 4th Generation HIV test [...] HIV Comment Low Risk of HIV Infection [facility] Blood 01/25/2023 9:57 AM EST 01/25/2023 1:22 PM EST Narrative Resulting Agency Comment Spec In Lab Alyson Phelps MD CHEMISTRY ORDERABLES Performing Organization Address City/[facility] Co de Phone Number [facility] [place] [address] * Hepatitis C Antibody (01/25/2023 9:57 AM EST) Hepatitis C Antibody Negative Negative [facility] Blood 01/25/2023 9:57 AM EST 01/25/2023 1:22 PM EST Narrative Resulting Agency Comment Spec In Lab Alyson Phelps MD CHEMISTRY ORDERABLES Performing Organization Address City/[facility]/ZIP Co de Phone Number [facility] [place] [address] * (ABNORMAL) Hepatitis B Surface Antigen (01/25/2023 9:57 AM EST) Hepatitis B Surface Antigen Positive(A ) Negative [facility] Comment:Confirmed on 3 DAVINA Blood VENOUS BLOOD SPECIMEN / Unknown 01/25/2023 9:57 AM EST 01/25/2023 1:22 PM EST Narrative Resulting Agency Comment Spec In Lab Alyson Phelps MD CHEMISTRY ORDERABLES [facility] [place] [address] * Hepatitis B Core Antibody, Total (01/25/2023 9:57 AM EST) Hepatitis B Core Antibody Negative Negative [facility] Blood VENOUS BLOOD SPECIMEN / Unknown 01/25/2023 9:57 AM EST 01/25/2023 1:22 PM EST Narrative Resulting Agency Comment Spec In Lab Alyson Phelps MD CHEMISTRY ORDERABLES Performing Organization Address [facility] [place] [address] * (ABNORMAL) Betty-Harmon Virus Antibodies (01/25/2023 9:57 AM EST) [facility] EBV (VCA) IgG Ab Positive(A) Negative [facility] EBV (VCA) IgM Ab Positive(A) Negative [facility] EBNA Antibodies Positive(A) Negative [facility] EBV Interpretation Late primary infection or reactivation . [facility] Comment: In most populations, at least 90% of the adult population will have been infected with EBV some time in the past and therefore, will be positive for anti-VCA/IgG and anti-EBNA. Antibodies to EBNA develop 6-8 weeks after primary infection and remain present for life. Presence of VCA/IgM antibodies indicates recent primary infection with EBV. Blood 01/25/2023 9:57 AM EST 01/26/2023 6:45 AM EST Narrative Resulting Agency Comment Spec In Lab Alyson Phelps MD IMMUNOLOGY ORDERABLE S Performing Organization Address City/[facility] [place] [address] * CMV Antibody, IgM (01/25/2023 9:57 AM EST) CMV IgM Negative Negative [facility] Blood 01/25/2023 9:57 AM EST 01/26/2023 6:45 AM EST Narrative Resulting Agency Comment Spec In Lab Alyson Phelps MD IMMUNOLOGY ORDERABLE S Performing Organization Address City/[facility]/ZIP Co de Phone Number [facility] [place] [address] * Copper, serum (01/25/2023 9:57 AM EST) Copper (JULY) 80 73 - 129 mcg/dL [facility] Comment: ADDITIONAL INFORMATION This test was developed and its performance characteristics determined by [facility] in a manner consistent with CLIA requirements. This test has not been cleared or approved by the U.S. Food and Drug Administration. Test Performed by: [facility] [address] [place] [address] Back Hand: Luis Vega M.D. Ph.D.; CLIA# [id number] Blood VENOUS BLOOD SPECIMEN / Unknown 01/25/2023 9:57 AM EST 01/25/2023 4:11 PM EST Narrative Resulting Agency Comment Spec In Lab Alyson Phelps MD LAB SEND OUT ORDERAB LES Performing Organization Address City/[facility]/ZIP Co de Phone Number [facility] [place] [address] documented in this encounter Visit Diagnoses Diagnosis Neutropenia, unspecified type Alcoholic cirrhosis of liver with ascites Alcoholic cirrhosis of liver Right inguinal hernia Inguinal hernia without mention of obstruction or gangrene, unilateral or unspecified, (not specified as recurrent) documented in this encounter Care Teams Therapist Rrt Relationship Specialty Start Date End Date Unknown None PCP - General 12/21/13 02/10/23 documented as of this encounter
--- OUTSIDE RECORDS SUMMARY | 2023-12-26 11:41 | XMS_ITS | Encounter Summary ---
Author Organization [facility] Address [facility] [place] [address] Care Team Providers Care Machinist Apprentice Wood Name Role Phone Tonia Hauser Primary Care Provider [phone] Encounter Details Date Type Department Care Team (Latest Contact Info) Description 04/13/2023 Travel Social History Tobacco Use Types Packs/Day Years Used Date Smoking Tobacco: Every Day Cigarettes 1.5 30 Smokeless Tobacco: Never Alcohol Use Standard Drinks/Week Comments Not Currently 0 (1 standard drink = 0.6 oz pur e alcohol) 03/15/23 16 weeks sober [facility] Utilities Answer Date Recorded In the past 12 months has [employer] electric, gas, oil, or water [employer] threatened to shut off services in your [...] PM EST Hospital Encounter [place] [address] Franklin Ramirez MD [address] [place] [address] [place] [address] 02/01/2024 2:10 PM EST - 02/01/2024 4:50 PM EST [place] [address] Franklin Ramirez MD [address] [place] [address] [place] [address] REPAIR INGUINAL HERNIA, 5 YR OR OLDER, REDUCIBLE (WRVU 7.96) 03/05/2024 11:45 AM EST Office Visit General Surgery at [facility] [address] [place] [address] [place] [address] Franklin Ramirez MD [address] [place] [address] [place] [address] Scheduled Procedures Name Priority Associated Diagnoses Date/Ti me REPAIR INGUINAL HERNIA, 5 YR OR OLDER, REDUCIBLE (WRVU 7.96) Right inguinal hernia 02/01/2024 2:10 PM EST MODIFIER MESH,BARD FLAT MESH Right inguinal hernia 02/01/2024 2:10 PM EST documented as of this encounter Visit Diagnoses Not on filedocumented in this encounter Care Teams Machinist Apprentice Wood Relationship Specialty Start Date End Date Tonia Hauser PA [address] [place] [address] PCP - General Family Medicine 04/13/23 documented as of this encounter
--- OUTSIDE RECORDS SUMMARY | 2023-12-26 11:41 | XMS_ITS | Encounter Summary ---
Author Organization [facility] Address [facility] [place] [address] Care Team Providers Care Aquatics Manager Name Role Phone Unknown Primary Care Provider Unavailabl e Reason for Referral * Consultation (Routine) - Closed Specialty Diagnoses / Procedures Referred By Renata t Referred To Contact Hematology and Oncology Diagnoses Neutropenia, unspecified type Isabel Pickard MD [facility] [address] [facility] Hem Onc Office [address] [place] [phone] Referral ID Status Reason Start Date Expiration Date V isits Requested Visits Authorized [id number] Closed Consult, Test & Treat 01/25/2023 01/25/2024 1 1 Encounter Details Date Type Department Care Team (Late Contact Info) Description 01/25/2023 Telephone [place] [phone] Isabel Pickard MD [facility] [place] [address] Social History Tobacco Use Types Packs/Day Years Used Date Smoking Tobacco: Every Day Cigarettes 1.5 30 Smokeless Tobacco: Never Alcohol Use Standard Drinks/Week Comments Never 0 (1 standard drink = 0.6 oz pur e alcohol) [facility] Inpatient Questions Answer Date Recorded [...] encounter Miscellaneous Notes * Telephone Encounter - Isabel Pickard MD - 01/25/2023 10:34 AM EST 01/25/23 10:34 AM Discussed case with hooker inspector equipment operation instructor who recommended reeval of EBV, CMV and hepatitidies statusas well as new copper testing. Given potential increase in sensitivity w Ab testing (EBV/CMV prev tested as PCR) these tests were ordered. Although I have low clinical suspicion that Hep B Core Ab (or Sag) would be newly positive heme fellow equipment operation instructor recommends this test with reflex Hep C PCR testing. Unfortrunatley I am not able to wait until repeat CBC/smear returns to order these likely costly labs bc the patient lives 2 hours away and if repeat neutropenia would not be able to return in a timely manner for this blood work. Also discussed that omeprazole may play a role in new dx but risk outweighs benefit of holding thisRx iso repeat UGIB in last 2 mo. Heme equipment operation instructor favored switch to protonix and heme outpatient referral. Called to discuss this with Shakir (who Im sure has already been to [facility] this morning) who did not answer; left VM indicating reason for PPI change. I looked for hematologists near [place] but was not able to find a [facility] subspecialty provider online; unfortunately [facility] is equal drive [place] [place] on [employer] maps. Talked with sec at [facility] in [place] who is accepting patients; explained pt complexity and planning; she will send new pt packet to his address (I shared). Will ask secs to fax last note, MG and discharge summaries. Lastly, re-reviewed the literature on SBP prophylaxis. Again note that no ascites fluid protein hasbeen drawn to date. Na <130 is only active possible indication but note that PPI as well as SBP ppx can actually increase risk of SBP development in a pt w neutropenia (who has not had SBP to date). I will connect with Dr Barrow regarding potential utility of this Rx at this time but favor holdingoff today. Isabel Pickard MD documented in this encounter Plan of Treatment Upcoming Encounters Date Type Department Care Team (Latest Contact Info) Description 02/01/2024 2:10 PM EST Hospital Encounter [place] [address] Franklin Ramirez MD [address] [place] [address] [place] [address] 02/01/2024 2:10 PM EST - 02/01/2024 4:50 PM EST [place] [address] Franklin Ramirez MD [address] [place] [id number] REPAIR INGUINAL HERNIA, 5 YR OR OLDER, REDUCIBLE (WRVU 7.96) 03/05/2024 11:45 AM EST Office Visit General Surgery at [address] [address] Franklin Ramirez MD [address] [place] [address] [place] [address] Scheduled Procedures Name Priority Associated Diagnoses Date/Ti me REPAIR INGUINAL HERNIA, 5 YR OR OLDER, REDUCIBLE (WRVU 7.96) Right inguinal hernia 02/01/2024 2:10 PM EST MODIFIER MESH,BARD FLAT MESH Right inguinal hernia 02/01/2024 2:10 PM EST Scheduled Referrals Name Type Priority Associated Diagnoses Orde r Schedule Referral to Hematology and Oncology Outpatient Referral Routine Neutropenia, unspecified type Ordered: 01/25/2023 documented as of this encounter Visit Diagnoses Diagnosis Acute GI bleeding Hemorrhage of gastrointestinal tract, unspecified Neutropenia, unspecified type Right inguinal hernia Inguinal hernia without mention of obstruction or gangrene, unilateral or unspecified, (not specified as recurrent) documented in this encounter Care Teams Aquatics Manager Relationship Specialty Start Date End Date Unknown None PCP - General 12/21/13 02/10/23 documented as of this encounter
--- OUTSIDE RECORDS SUMMARY | 2023-12-26 11:41 | XMS_ITS | Encounter Summary ---
Author Organization [facility] [place] [address] Care Team Providers Care Multimedia Editor Name Role Phone Tonia Hauser Primary Care Provider [phone] Encounter Details Date Type Department Care Team (Latest Contact Info) Description 02/25/2023 Travel Social History Tobacco Use Types Packs/Day Years Used Date Smoking Tobacco: Every Day Cigarettes 1.5 30 Smokeless Tobacco: Never Alcohol Use Standard Drinks/Week Comments Never 0 (1 standard drink = 0.6 oz pur e alcohol) IP[facility] Inpatient Questions Answer Date Recorded Does [...] PM EST Hospital Encounter [place] [address] Franklin Ramirez MD [address] [place] [address] [place] [address] 02/01/2024 2:10 PM EST - 02/01/2024 4:50 PM EST Surgery [place] [address] Franklin Ramirez MD [address] [place] [address] [place] [address] REPAIR INGUINAL HERNIA, 5 YR OR OLDER, REDUCIBLE (WRVU 7.96) 03/05/2024 11:45 AM EST Office Visit General Surgery at [address] [phone] Franklin Ramirez MD [address] [place] [address] [place] [address] Scheduled Procedures Name Priority Associated Diagnoses Date/Ti [...] PA [address] [place] [place] [address] PCP - General Family Medicine 02/11/23 03/27/23 documented as of this encounter
--- OUTSIDE RECORDS SUMMARY | 2023-12-26 11:41 | XMS_ITS | Encounter Summary ---
Author Organization [facility] [address] Care Team Providers Care Therapeutic Recreation Leader Name Role Phone Tonia Hauser Primary Care Provider [phone] Reason for Visit * Reason Onset Date Comments Medication Refill 02/22/2023 Encounter Details Date Type Department Care Team (Late st Contact Info) Description 02/22/2023 Refill Family Medicine at [address] [place] [address] [place] [address] Social History Tobacco Use Types Packs/Day Years [...] Telephone Encounter - Inocencia Kat LPN - 02/22/2023 2:32 PM EST Prescription Renewal Request Name: Shakir Sexton : 1975 Prescription(s) Requested: Requested Prescriptions Pending Prescriptions Disp Refills lactulose (Chronulac) 10 gram/15 mL Solution 1892 mL 3 Sig: Take 30 mLs by mouth 3 times daily. Titrate to 3-4 bowel movements a day Date of Encounter last in This Dept (If need an appointment send to secretaries to schedule): 01/24/23 with Latha Pickard MD Next Encounter in This Dept: 03/15/2023 Date of Last Refill (for each medication): 01/13/23 1892 ml/3 Medication category requirements (labs etc): na Status of request: Pended pharmacy change No Known Allergies Inocencia Kat RN 02/22/23 2:32 PM documented in this encounter Plan of Treatment Upcoming Encounters Date Type Department Care Team (Latest Contact Info) Description 02/01/2024 2:10 PM EST Hospital Encounter [place] [address] Franklin Ramirez MD [address] [place] [address] [place] [address] 02/01/2024 2:10 PM EST - 02/01/2024 4:50 PM EST Surgery [place] [address] Franklin Ramirez MD [address] [place] [address] [place] [address] REPAIR INGUINAL HERNIA, 5 YR OR OLDER, REDUCIBLE (WRVU 7.96) 03/05/2024 11:45 AM EST Office Visit General Surgery at [facility] [address] [address] Franklin Ramirez MD [address] [place] [address] [place] [address] Scheduled Procedures Name Priority Associated Diagnoses Date/Ti me REPAIR INGUINAL HERNIA, 5 YR OR OLDER, REDUCIBLE (WRVU 7.96) Right inguinal hernia 02/01/2024 2:10 PM EST MODIFIER MESH,BARD FLAT MESH Right inguinal hernia 02/01/2024 2:10 PM EST documented as of this encounter Visit Diagnoses Not on filedocumented in this encounter Care Teams Therapeutic Recreation Leader Relationship Specialty Start Date End Date Tonia Hauser PA [address] [place] [address] PCP - General Family Medicine 02/11/23 03/27/23 documented as of this encounter
--- OUTSIDE RECORDS SUMMARY | 2023-12-26 11:41 | XMS_ITS | Encounter Summary ---
Author Organization [facility] [address] Care Team Providers Care Lap Maker Name Role Phone Tawnya Mcarthur Primary Care Provider [phone] Encounter Details Date Type Department Care Team (Late st Contact Info) Description 02/14/2023 Telephone Internal Medicine at [address] [address] Magi Medellin RN Social History Tobacco Use Types Packs/Day [...] Telephone Encounter - Isabel Pickard MD - 02/14/2023 6:09 PM EST 02/14/23 6:09 PM Called re: ?aldactone refill. He confirrms this is his request. He sayys he has not rec'd new patient paperwork from [facility] I gave him the address and asked him to drive to this clinic tomorrow to strip picker paperwor. Gave him the number as well. He says he had a 5L paracentesis on Tuesday from that [facility]. I am not able to get these records and continue to be concerned about a follow-up plan given no PCP and we are 2 hours away from his home. I expressed my concerns. He plans to follow-up w heme/onc as scheduled. I have asked secs twice for his previous (presumed [facility]) paracentesis results and see nothing is in the media. I will ask again for these most recent results (or at least documentation of a para). Given I did not place orders for a paracentesis I am guessing I will not have BF protein results (whichwould potentially manager change). I am happy to place this order if I know where to send it... The last [facility] documentation in care everywhere is from 11/24. All questions answered at this time. Isabel Pickard MD * Telephone Encounter - Magi Medellin RN - 02/14/2023 10:00 AM EST Copied from [facility] #[id number]. Topic: Pharmacy Call - RX Issues >> Feb 14, 2023 8:45 AM Helga Ferraro wrote: Rx Issues PCP: TAWNYA MCARTHUR Reason for Call: Patient states he needs meds refilled, but doesn't know the name. States he was supposed to receive a call about this on Tuesday. He thinks one is spironolactone (Aldactone) 100 mg tablet Name of Medication: spironolactone (Aldactone) 100 mg tablet Name of Prescriber: Isabel Pickard MD Name of Pharmacy: [facility] but pt wants it at [facility]. [facility] ref[facility] at [facility] Address for Pharmacy: [address] [place] [address]/Town & State for Pharmacy: [facility] Is the Patient Currently at the Pharmacy: no documented in this encounter Plan of Treatment Upcoming Encounters Date Type Department Care Team (Latest Contact Info) Description 02/01/2024 2:10 PM EST Hospital Encounter Main Operating Room [facility] [place] [address] Franlkin Ramirez MD [address] [place] [address] [place] [address] 02/01/2024 2:10 PM EST - 02/01/2024 4:50 PM EST Surgery Main Operating Room [facility] [place] [address] Franklin Ramirez MD [address] [place] [address] REPAIR INGUINAL HERNIA, 5 YR OR OLDER, REDUCIBLE (WRVU 7.96) 03/05/2024 11:45 AM EST Office Visit General Surgery at [facility] [address] [address] Franklin Ramirez MD [address] [place] [address] Scheduled Procedures Name Priority Associated Diagnoses Date/Ti nc REPAIR INGUINAL HERNIA, 5 YR OR OLDER, [...] recurrent) documented in this encounter Care Teams Lap Maker Relationship Specialty Start Date End Date Tawnya Mcarthur PA [address] [place] [address] PCP - General Family Medicine 02/11/23 03/27/23 documented as of this encounter
--- OUTSIDE RECORDS SUMMARY | 2023-12-26 11:41 | XMS_ITS | Encounter Summary ---
Author Organization [facility] Address [facility] [place] [address] Care Team Providers Care Immigration Guard Name Role Phone Tonia Hauser Primary Care Provider [phone] Encounter Details Date Type Department Care Team (Latest Contact Info) Description 03/15/2023 Travel Social History Tobacco Use Types Packs/Day Years Used Date Smoking Tobacco: Every Day Cigarettes 1.5 30 Smokeless Tobacco: Never Alcohol Use Standard Drinks/Week Comments Not Currently 0 (1 standard drink = 0.6 oz pur e alcohol) 03/15/23 16 weeks sober [facility] Utilities Answer Date Recorded In the past 12 months has [employer] electric, gas, oil, or water [employer] threatened to shut off services in your [...] PM EST Hospital Encounter [place] [address] Franklin Ramirez MD [address] [place] [address] [place] [address] 02/01/2024 2:10 PM EST - 02/01/2024 4:50 PM EST Surgery [place] [address] Franklin Ramirez MD [address] [place] [address] [place] [address] REPAIR INGUINAL HERNIA, 5 YR OR OLDER, REDUCIBLE (WRVU 7.96) 03/05/2024 11:45 AM EST Office Visit General Surgery at [facility] [address] [place] [address] [place] [address] Franklin Ramirez MD [address] [place] [address] [place] [address] Scheduled Procedures Name Priority Associated Diagnoses Date/Ti me REPAIR INGUINAL HERNIA, 5 YR OR OLDER, REDUCIBLE (WRVU 7.96) Right inguinal hernia 02/01/2024 2:10 PM EST MODIFIER MESH,BARD FLAT MESH Right inguinal hernia 02/01/2024 2:10 PM EST documented as of this encounter Visit Diagnoses Not on filedocumented in this encounter Care Teams Immigration Guard Relationship Specialty Start Date End Date Tonia Hauser PA [address] [place] [address] PCP - General Family Medicine 02/11/23 03/27/23 documented as of this encounter
--- OUTSIDE RECORDS SUMMARY | 2023-12-26 11:41 | XMS_ITS | Encounter Summary ---
Author Organization [facility] Address [facility] [place] [address] Care Team Providers Care Supervisor Fruit Grading Name Role Phone Unknown Primary Care Provider Unavailabl e Encounter Details Date Type Department Care Team (Late Contact Info) Description 01/24/2023 Telephone Internal Medicine at [facility] [place] [address] Isabel Pickard MD [facility] [place] [address] Social History Tobacco Use Types Packs/Day Years [...] Telephone Encounter - Isabel Pickard MD - 01/24/2023 6:07 PM EST 01/24/23 6:07 PM Called hematology on-call re: new isolated neutropenia recs addtl lab workup w repeat CBC in AM andsmear. Will add addtl rec'd labs as they come in (wildlife removal specialist o/n holding mutiple pagers and not able to open chart at time of discussion). Discussed findings with shakir; will repeat in AM at 3L. Discussed fever monitoring o/n. All questions answered at this time. Isabel Pickard MD documented in this encounter Plan of Treatment Upcoming Encounters Date Type Department Care Team (Latest Contact Info) Description 02/01/2024 2:10 PM EST Hospital Encounter [place] [address] Franklin Ramirez MD [address] [place] [address] [place] [address] 02/01/2024 2:10 PM EST - 02/01/2024 4:50 PM EST Surgery [place] [address] Franklin Ramirez MD [address] [place] [address] REPAIR INGUINAL HERNIA, 5 YR OR OLDER, REDUCIBLE (WRVU 7.96) 03/05/2024 11:45 AM EST Office Visit General Surgery at [address] [address] Franklin Ramirez MD [address] [place] [address] [place] [address] Scheduled Procedures Name Priority Associated Diagnoses Date/Ti nj REPAIR INGUINAL HERNIA, 5 YR OR OLDER, REDUCIBLE (WRVU 7.96) Right inguinal hernia 02/01/2024 2:10 PM EST MODIFIER MESH,BARD FLAT MESH Right inguinal hernia 02/01/2024 2:10 PM EST documented as of this encounter Results * Peripheral Smear Review (01/25/2023 9:57 AM EST) Peripheral Smear Review See Comment [facility] Comment: When completed by the Pathologist, report [id number] will display under Hematopathology Reports. Blood 01/25/2023 9:57 AM EST 01/25/2023 1:04 PM EST Narrative Resulting Agency Comment Spec In Lab Alyson Phelps MD HEMATOLOGY ORDERABLE S Performing Organization Address City/State/[facility] Co de Phone Number [facility] [place] [address] documented in this encounter Visit Diagnoses Diagnosis Neutropenia, unspecified type Right inguinal hernia Inguinal hernia without mention of obstruction or gangrene, unilateral or unspecified, (not specified as recurrent) documented in this encounter Care Teams Supervisor Fruit Grading Relationship Specialty Start Date End Date Unknown None PCP - General 12/21/13 02/10/23 documented as of this encounter
--- OUTSIDE RECORDS SUMMARY | 2023-12-26 11:41 | XMS_ITS | Encounter Summary ---
Author Organization [facility] [place] [address] Care Team Providers Care Field Kiln Burner Name Role Phone Unknown Primary Care Provider Unavailabl e Encounter Details Date Type Department Care Team (Late st Contact Info) Description 01/30/2023 [place] [phone] Digna Samson RN Social History Tobacco Use Types Packs/Day [...] encounter Miscellaneous Notes * Telephone Encounter - Digna Samson RN - 01/30/2023 8:58 AM EST [facility] Call Documentation Birthdate: 1975 Call Date: Age: 48 Years Work Phone: Work Phone: Gender: Female Time: [address] [place] [address] Address[address] [address] [place], [place] [address] [address] Address: PCP: UNKNOWNMICHELLE MD Relationship to Caller: Org: [facility] Chief Complaint: ABDOMEN Call Outcome: See MD within 4 hours Client: Company: [employer] Phone[employer]1: [facility] Rosie, Triage Patient: Shakir Argueta Caller Is: Shakir Argueta 01/30/2023 08:49 Mbr ID: Email: Preliminary Assessment Notes & Patient/Caller Notes: Chief Complaint: fluid overload Onset: this morning Describe Sx: rock hard abdomen, I can't hardly move because of the pain and swelling Precipitating Factors: liver disease- fluid removed from abdomen regularly by proivder Worse/Better (include Meds:D/R/T): getting fluid drained off abdomen for liver disease usually helps with symptoms NOTES: States reached out to her provider on mychart and was told to go to the ER to have fluid drained off abdomen but states when she went to the ER they tried to do a workup and she just wanted the fluid drained off. Originally called this number to speak to her physician directly but this RN was able to answer callers question. Advised caller that the ER would do a full work up in order to make sure there was nothing else going on prior to draining the fluid off and potentially causing harm. Verbalized understanding and states she will go to the ER to have them drain off the fluid as directed originally by provider. Patient / Caller Notes: DIAGNOSED PROBLEMS: liver disease MEDICATIONS: unknown ALLERGIES: unknown FULL COURSE OF COVID IMMUNIZATION?: n/a ANNUAL FLU SHOT?: n/a 01/30/2023 08:57:22 KS1 Pt. Moreno/Alerts : Nursing Documentation: Triage By: KS1 Guideline: Abdomen Bloating and Swelling - (Adult After-Hours) [[id number]] Triage Level: Pre Disposition: RN Override: See Physician within 4 Hours (or PCP triage) See/call Doctor Disagree Reason: Go to Facility: Patient Understands Instructions: Yes Questions / Responses For: Abdomen Bloating and Swelling - (Adult After-Hours) [[id number]] TRIAGE QUESTION (TRIGGERING DISPOSITION) Response [1] MODERATE-SEVERE SWELLING of abdomen (e.g., looks very distended or swollen) AND [2] NEW-onset or much worse CARE ADVICE Response [facility] Triage #: [id number] - [ABDOMEN] Page 1 of 2 1. CARE ADVICE given per Abdomen Bloating and Swelling (Adult) guideline. 43. SEE HCP (OR PCP TRIAGE OR VIDEO VISIT) WITHIN 4 HOURS: * IF OFFICE WILL BE OPEN: You need to be seen within the next 3 or 4 hours. Call your doctor (or REAL ESTATE TRANSACTION COORDINATOR/PA) now or as soon as the office opens. * IF OFFICE WILL BE CLOSED AND NO PCP (PRIMARY CARE PROVIDER) SECOND-LEVEL TRIAGE: You need to be seen within the next 3 or 4 hours. A nearby Urgent Care Center (UCC) is often a good source of care. Another choice is to go to the ED. Go sooner if you become worse. NOTE TO TRIAGER: * Use nurse judgment to select the most appropriate source of care. * Consider both the urgency of the patient's symptoms AND what resources may be needed to evaluate and manage the patient. 89. CALL BACK IF: * You become worse [facility] Triage #: [id number] - [ABDOMEN] Page 2 of 2 documented in this encounter Plan of Treatment Upcoming Encounters Date Type Department Care Team (Latest Contact Info) Description 02/01/2024 2:10 PM EST Hospital Encounter [place] [address] Franklin Ramirez MD [address] [place] [address] [place] [address] 02/01/2024 2:10 PM EST - 02/01/2024 4:50 PM EST Surgery Main Operating [place] [facility] [place] [address] Franklin Ramirez MD [address] [place] [address] [place] [address] REPAIR INGUINAL HERNIA, 5 YR OR OLDER, REDUCIBLE (WRVU 7.96) 03/05/2024 11:45 AM EST Office Visit General Surgery at [address] [phone] Franklin Ramirez MD [address] [place] [address] [place] [address] Scheduled Procedures Name Priority Associated Diagnoses Date/Ti wv REPAIR INGUINAL HERNIA, 5 YR OR OLDER, REDUCIBLE (WRVU 7.96) Right inguinal hernia 02/01/2024 2:10 PM EST MODIFIER MESH,BARD FLAT MESH Right inguinal hernia 02/01/2024 2:10 PM EST documented as of this encounter Visit Diagnoses Not on filedocumented in this encounter Care Teams Field Kiln Burner Relationship Specialty Start Date End Date Unknown None PCP - General 12/21/13 02/10/23 documented as of this encounter
--- OUTSIDE RECORDS SUMMARY | 2023-12-26 11:41 | XMS_ITS | Encounter Summary ---
Author Organization [facility] Address [place] [address] Care Team Providers Care Survey Compiler Name Role Phone Tawnya Mcarthur Primary Care Provider [phone] Reason for Visit * Reason Onset Date Comments Follow-up 03/15/2023 Patient has ques tions about MVI with iron supplements. Encounter Details Date Type Department Care Team (Late Contact Info) Description 03/15/2023 Nurse Triage Family Medicine at [facility] [address] [address] Kylah Dow RN Follow-up (Patient has questions about MVI with iron supplements.) Social History Tobacco Use Types Packs/Day Years Used Date Smoking Tobacco: Every Day Cigarettes 1.5 30 Smokeless Tobacco: Never Alcohol Use Standard Drinks/Week Comments Not Currently 0 (1 standard drink = 0.6 oz pur e alcohol) 03/15/[address] [facility] Utilities Answer Date Recorded In the past 12 months has e [employer], gas, oil, or water [employer] threatened to shut off services in your [...] Telephone Encounter - Kylah Dow RN - 03/15/2023 4:15 PM EST Copied from [facility] #[id number]. Topic: Triage - Triage >> Mar 15, 2023 3:57 PM Chase Frank wrote: Symptom: Medication question PCP: TAWNYA MCARTHUR Additional Comments: Patient called in looking to leave a message for TAWNYA MCARTHUR - patient stated that he got his updated medication list today during the appointment, and noticed the multivitamin with minerals (Thera M) 9 mg iron- 400 mcg Tablet prescription. Patient stated that he is not sure if he's ever taken that medication, and is not sure what it would be for. Patient was looking toconfirm if he should be taking this medication or not, and if so, will need a prescription sent to his pharmacy as he doesn't have any. Please call patient to assist. Patient identified by Full Name and . Explained the Thera M with iron supplements were prescribed to him when he was discharged from hospital 01/14/23. Reports he has never taken this medication. Let patient know will check with his PCP and someone from Clinic will let him know if he needs to be taking this medication. documented in this encounter Plan of Treatment Upcoming Encounters Date Type Department Care Team (Latest Contact Info) Description 02/01/2024 2:10 PM EST Hospital Encounter [place] [address] Franklin Ramirez MD [address] [place] [address] [place] [address] 02/01/2024 2:10 PM EST - 02/01/2024 4:50 PM EST Surgery [place] [address] Franklin Ramirez MD [address] [place] [address] [place] [address] REPAIR INGUINAL HERNIA, 5 YR OR OLDER, REDUCIBLE (WRVU 7.96) 03/05/2024 11:45 AM EST Office Visit General Surgery at [facility] [address] [address] Franklin Ramirez MD [address] [place] [address] [place] [address] Scheduled Procedures Name Priority Associated Diagnoses Date/Ti wa REPAIR INGUINAL HERNIA, 5 YR OR OLDER, REDUCIBLE (WRVU 7.96) Right inguinal hernia 02/01/2024 2:10 PM EST MODIFIER MESH,BARD FLAT MESH Right inguinal hernia 02/01/2024 2:10 PM EST documented as of this encounter Visit Diagnoses Not on filedocumented in this encounter Care Teams Survey Compiler Relationship Specialty Start Date End Date Tawnya Mcarthur PA [address] [place] [address] PCP - General Family Medicine 02/11/23 03/27/23 documented as of this encounter
--- OUTSIDE RECORDS SUMMARY | 2023-12-26 11:41 | XMS_ITS | Encounter Summary ---
Author Organization [facility] Address [facility] [place] [address] Care Team Providers Care Director Of Corporate Marketing Name Role Phone Unavailable Primary Care Provider Unavailabl e Encounter Details Date Type Department Care Team (Late Contact Info) Description 03/28/2023 Telephone Family Medicine at [address] [place] [phone] Iliana Khalil Social History Tobacco Use Types Packs/Day Years Used Date Smoking Tobacco: Every Day Cigarettes 1.5 30 Smokeless Tobacco: Never Alcohol Use Standard Drinks/Week Comments Not Currently 0 (1 standard drink = 0.6 oz pur e alcohol) 03/15/23 16 weeks sober [facility] Utilities Answer Date Recorded In the [...] place to sleep or slept in a prison (including now)? No 03/15/2023 DH IPV Inpatient [...] encounter Miscellaneous Notes * Telephone Encounter - Iliana Khalil - 03/28/2023 10:00 AM EST Mailed KASI to patient so we can transfer his medical records to [facility]. documented in this encounter Plan of Treatment Upcoming Encounters Date Type Department Care Team (Latest Contact Info) Description 02/01/2024 2:10 PM EST Hospital Encounter [place] [address] Franklin Ramirez MD [address] [place] [address] [place] [address] 02/01/2024 2:10 PM EST - 02/01/2024 4:50 PM EST Surgery [place] [address] Franklin Ramirez MD [address] [place] [address] [place] [address] REPAIR INGUINAL HERNIA, 5 YR OR OLDER, REDUCIBLE (WRVU 7.96) 03/05/2024 11:45 AM EST Office Visit General Surgery at [address] [phone] Franklin Ramirez MD [address] [place] [address] [place] [address] Scheduled Procedures Name Priority Associated Diagnoses Date/Ti ct REPAIR INGUINAL HERNIA, 5 YR OR OLDER, REDUCIBLE (WRVU 7.96) Right inguinal hernia 02/01/2024 2:10 PM EST MODIFIER MESH,BARD FLAT MESH Right inguinal hernia 02/01/2024 2:10 PM EST documented as of this encounter Visit Diagnoses Not on filedocumented in this encounter
--- OUTSIDE RECORDS SUMMARY | 2023-12-26 11:41 | XMS_ITS | Encounter Summary ---
Author Organization [facility] Address [facility] [place] [address] Care Team Providers Care Inspector Balance Truing Name Role Phone Tawnya Mcarthur Primary Care Provider [phone] Encounter Details Date Type Department Care Team (Late st Contact Info) Description 03/16/2023 Telephone Family Medicine at [address] [phone] Clarissa Ramos RN Social History Tobacco Use Types Packs/Day Years Used Date Smoking Tobacco: Every Day Cigarettes 1.5 30 Smokeless Tobacco: Never Alcohol Use Standard Drinks/Week Comments Not Currently 0 (1 standard drink = 0.6 oz pur e alcohol) 03/15/23 16 weeks sober [facility] Utilities Answer Date Recorded In [...] a care home (including now)? No 03/15/2023 IPV Inpatient Questions [...] encounter Miscellaneous Notes * Telephone Encounter - Clarissa Ramos RN - 03/23/2023 11:14 AM EST Call to pt to let him know that PCP would like him to keep 04/27 appointment with GI., no referral elsewhere. Pt verbalized understanding. * Telephone Encounter - Clarissa Ramos RN - 03/18/2023 9:07 AM EST Call to pt. Identified by name/date of . Informed pt that [facility] does not have transfer knitter to manage his cirrhosis but a closer option would be [facility] if he would like to go there. Pt agreed to try this referral. If it is accepted his gastro appoitnment in April will need to be cancelled. * Telephone Encounter - Clarissa Ramos RN - 03/16/2023 3:32 PM EST Copied from [facility] #[id number]. Topic: Patient Request - Referral Request >> Mar 16, 2023 3:25 PM Effie Odom wrote: Referral Request. PCP: TAWNYA MCARTHUR Is this for an insurance referral?: No Clinical Reason for Visit (diagnosis): please see 03/15/23 gastro referral to [facility]; the office is calling because they are unsure the scope of care that is being sought. They do not have a GI specialtyteam; they can perform paracentesis to remove ascites for patients comfort but they cannot manage cirrhosis. Please call office to let them know if they should contact patient or close file. Do you have a specific provider or office in mind: No Patient is requesting recommendation for referral for above diagnosis. Will ask PCP to advise. documented in this encounter Plan of Treatment Upcoming Encounters Date Type Department Care Team (Latest Contact Info) Description 02/01/2024 2:10 PM EST Hospital Encounter [place] [address] Franklin Ramirez MD [address] [place] [address] [place] [address] 02/01/2024 2:10 PM EST - 02/01/2024 4:50 PM EST Surgery [place] [phone] Franklin Ramirez MD [address] [place] [address] [place] [address] REPAIR INGUINAL HERNIA, 5 YR OR OLDER, REDUCIBLE (WRVU 7.96) 03/05/2024 11:45 AM EST Office Visit General Surgery at [facility] [address] [place] [phone] Franklin Ramirez MD [address] [place] [address] [place] [address] Scheduled Procedures Name Priority Associated Diagnoses Date/Ti me REPAIR INGUINAL HERNIA, 5 YR OR OLDER, REDUCIBLE (WRVU 7.96) Right inguinal hernia 02/01/2024 2:10 PM EST MODIFIER MESH,BARD FLAT MESH Right inguinal hernia 02/01/2024 2:10 PM EST documented as of this encounter Visit Diagnoses Not on filedocumented in this encounter Care Teams Inspector Balance Truing Relationship Specialty Start Date End Date Tawnya Mcarthur PA [address] [place] [address] PCP - General Family Medicine 02/11/23 03/27/23 documented as of this encounter
--- OUTSIDE RECORDS SUMMARY | 2023-12-26 11:41 | XMS_ITS | Encounter Summary ---
Author Organization [facility] Address [facility] [place] [address] Care Team Providers Care Dining Car Hop Name Role Phone Tonia Hauser Primary Care Provider [phone] Reason for Visit * Consultation (Routine) - Closed Specialty Diagnoses / Procedures Referred By Contac t Referred To Contact Gastroenterology Diagnoses Alcoholic cirrhosis of liver with ascites liver - cirrhosis, appt within 1-2 months. Monica Kuo MD [facility] [place] [address] [facility] [address] [place] [address] Referral ID Status Reason Start Date Expiration Date V isits Requested Visits Authorized [id number] Closed Consult, Test & Treat 01/13/2023 01/13/2024 1 1 Encounter Details Date Type Department Care Team (Late Contact Info) Description 04/22/2023 2:00 PM EST Office [place] [address] Khloe Calvert APRN [facility] [place] [address] Alcoholic cirrhosis of liver with ascites; Hepatic encephalopathy; Iron deficiency anemia due to chronic blood loss Social History Tobacco Use Types Packs/Day Years Used Date Smoking Tobacco: Every Day Cigarettes 1.5 30 Smokeless Tobacco: Never Alcohol Use Standard Drinks/Week Comments Not Currently 0 (1 standard drink = 0.6 oz pur e alcohol) 03/15/23 16 weeks sober [facility] Utilities Answer Date Recorded In [...] place to sleep or slept in a residential (including now)? No 03/15/2023 DH IPV Inpatient [...] Sign Reading Time Taken Comments Blood Pressure 123/52 04/22/2023 1:50 PM EST Pulse 90 04/22/2023 1:50 PM EST Temperature - - Respiratory Rate - - Oxygen Saturation 96% 04/22/2023 1:50 PM EST Inhaled Oxygen Concentration - - Weight 69.5 kg (153 lb 4.8 oz) 04/22/2023 1:50 P M EST Height 174.6 cm (5' 8.74) 04/22/2023 1:50 PM ES T Body Mass Index 22.81 04/22/2023 1:50 PM EST documented in this encounter Progress Notes * Khloe Calvert APRN - 04/22/2023 2:00 PM EST Gastroenterology and Hepatology New Patient Visit Patient: Shakir Sexton : 1975 Provider: Khloe Calvert APRN MSN History: Mr. Shakir Sexton is 48 y.o. with a history of tobacco use disorder (25 pack years, currently smoking) and alcohol use disorder (multiple years of 12+ drinks; last drink 11/23/22), EtOH cirrhosis c/b ascites and recent admission to [facility] (11/25/22-11/30/22) for upper GI bleed and volume overload here for initial consult for Etoh Cirrhosis. Admissions: [id number] GI bleed, decompensated cirrhosis. EGD with Grade C esophagitis. 01[facility]11[facility]01[facility] Upper GI Bleed, Decompensated cirrhosis EGD 01/11: [place] Grade D reflux esophagitis with oozing. Grade I esophageal varices. Completely flattened with air insufflation and no stigmata of variceal bleeding. Portal hypertensive gastropathy (PHG)with diffuse oozing. PHG and reflux esophagitis are the presumed source of coffee ground emesis. Blood transfusion when he was in [place]. No IV or IN drug use. Smokes [...] Was on ensure when he was in [place]. Now he is drinking a different brand protein shake-2 a day. No abdominal pain. Had quite a bit of abdominal pain when he had ascites. Bowels have normalized-solid, no further melena. Bowel movements 4 times a day. Has not noticed anysymptoms of GI bleeding. Confusion-Much better than it was. Sleep patterns continue to be irregular. No surgical History. 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 ROS: Constitutional: No unintentional weight loss, [...] Current Outpatient Medications Medication Sig Dispense Refill potassium chloride ER (Klor-Con, K-Tab) 10 mEq ER tablet Take 1 tablet by mouth daily. 90 tablet 3 multivitamin Iihs-Ie-RK-Min (Therapeutic-M) 27-0.4 mg Tablet Take 1 tablet by mouth daily. 90 tablet 3 folic acid (Vitamin B9) 1 mg tablet Take 1 tablet by mouth daily. 30 tablet 1 lactulose (Chronulac) 10 gram/15 mL Solution Take 30 mLs by mouth 3 times daily. Titrate to 3-4 bowel movements a day 1892 mL 3 spironolactone (Aldactone) 100 mg tablet Take 1 tablet by mouth daily. 30 tablet 11 pantoprazole EC (Protonix) [address] tablet Take 1 tablet by mouth 2 times daily for 42 days, THEN 1tablet daily for 96 days. On March 09 start taking 1 pill daily (STOP second pill). 180 tablet 0 furosemide (Lasix) 40 mg tablet Take 1 tablet by mouth daily. 30 tablet 3 No current facility-administered medications for this visit. ALLERGIES/ADR No Known Allergies PHYSICAL EXAMINATION: Vitals: 04/22/23 1350 BP: 123/52 Pulse: 90 SpO2: 96% Weight: 69.5 kg (153 lb 4.8 oz) Height: 174.6 cm (5' 8.74) Body mass index is 22.81 kg/m??. Alert, and oriented. Easily converses with this music writer. Comfortable wob in ra. Neg asterixis. Skin and sclera are nonicteric. No rashes on exposed skin. Normoactive bs x4. No ttp x 4. Minimal lower extremity edema. PERTINENT LABS AND IMAGING: Lab Results Component Value Date WBC 3.3 (L) 01/25/2023 HGB 9.9 (L) 01/25/2023 HCT 29.7 (L) 01/25/2023 MCV 92.2 01/25/2023 Lab Results Component Value Date ALT 17 01/24/2023 AST 34 01/24/2023 ALKPHOS 104 01/24/2023 BILITOT 5.2 (H) 01/24/2023 Chemistry Component Value Date/Time NA 127 (L) 01/24/2023 1616 K 3.1 (L) 01/24/2023 1616 CL 91 (L) 01/24/2023 1616 CO2 24 01/24/2023 1616 BUN 8 (L) 01/24/2023 1616 CREATININE 0.58 (L) 01/24/2023 1616 Component Value Date/Time CALCIUM 8.3 (L) 01/24/2023 1616 ALKPHOS 104 01/24/2023 1616 AST 34 01/24/2023 1616 ALT 17 01/24/2023 1616 BILITOT 5.2 (H) 01/24/2023 1616 MELD 3.0: 15 at 04/22/2023 3:12 PM MELD-Na: 17 at 04/22/2023 3:12 PM Calculated from: Serum Creatinine: 0.52 mg/dL (Using min of 1 mg/dL) at 04/22/2023 3:12 PM Serum Sodium: 132 mmol/L at 04/22/2023 3:12 PM Total Bilirubin: 1.3 mg/dL at 04/22/2023 3:12 PM Serum Albumin: 3.6 g/dL (Using max of 3.5 g/dL) at 04/22/2023 3:12 PM INR(ratio): 1.5 at 04/22/2023 3:12 PM Age at listing (hypothetical): 48 years Sex: Male at 04/22/2023 3:12 PM IMPRESSION/PLAN: Shakir Sexton is a 48 y.o. male with a history of tobacco use disorder (25 pack years, currently smoking) and alcohol use disorder (multiple years of 12+ drinks; last drink 11/23/22), EtOH cirrhosis c/b ascites, HE, and upper gi bleed. Here for initial outpatient appt to establish care for decompensated cirrhosis. He has done very well from a cirrhosis perspective as he is no longer drinking. His Hgb is lower than his dc hgb-he no longer has any symptoms of gi bleeding, but he is also iron deficient. Will start on oral iron now. Jay Em/endo within 2 weeks with MAC ordered. He had an egd while he was admitted in January that showed grade D esophagitis, and small varices. No colo performed at that time. He continues on PPI. No NSAID use. I do think carvedilol could be helpful at this time as well. I will hold off on carvedilol until after scopes, but if he continues with evidence of varices, and PHG then carvedilol may be helpful. He is no longer requiring taps, and seems to be recompensating not drinking ETOH. His MELD in January of 2023 was 25, and is 15 today. #HCC Screening: -Due for labs and us in July of 2023. Ordered. #Variceal Surveillance: -Small grade one EV's on egd while admitted. Also, with grade d esophagitis. Repeat scope past due.Ordered to be done within 2 weeks. #Ascites -Continue Lasix and Aldactone at 40 mg, and 100 mg daily. Has not required recent paracentesis. No evidence of ascites on exam today. -Continue low Na diet, limit to less than 2000 mg a day. HE: -Continue Lactulose, aim for 3-4 bms a day. -Sleep-wake cycle continues to be disrupted. Add in xifaxan 550 mg bid for additional coverage against HE. Follow up with me after colo/endo-discuss carvedilol. The patient was given my contact information and will call me with concerns or questions Total time spent on encounter today: Time spent reviewing records prior to this encounter: 5 minutes Time spent during encounter with patient including counselin minutes Time spent documenting encounter after office visit: 10 minutes Khloe Calvert APRN MSN Section of Gastroenterology [place] [address] Cc: ROSALES Akins [email or web address] documented in this encounter Plan of Treatment Upcoming Encounters Date Type Department Care Team (Latest Contact Info) Description 02/01/2024 2:10 PM EST Hospital Encounter [place] [phone] Franklin Ramirez MD [address] [place] [address] [place] [address] 02/01/2024 2:10 PM EST - 02/01/2024 4:50 PM EST Surgery [place] [phone] Franklin Ramirez MD [address] [place] [address] [place] [address] REPAIR INGUINAL HERNIA, 5 YR OR OLDER, REDUCIBLE (WRVU 7.96) 03/05/2024 11:45 AM EST Office Visit General Surgery at [facility] [address] [place] [address] [place] [address] Franklin Ramirez MD [address] [place] [address] [place] [address] Scheduled Orders Name Type Priority Associated Diagnoses Orde r Schedule ENDOSCOPY CASE REQUEST: EGD, UPPER GI ENDOSCOPY (WRVU 2.09), COLONOSCOPY, DIAGNOSTIC (WRVU 3.26) Procedures Routine Alcoholic cirrhosis of liver with ascites Ordered: 04/22/2023 Scheduled Procedures Name Priority Associated Diagnoses Date/Ti me REPAIR INGUINAL HERNIA, 5 YR OR OLDER, REDUCIBLE (WRVU 7.96) Right inguinal hernia 02/01/2024 2:10 PM EST MODIFIER MESH,BARD FLAT MESH Right inguinal hernia 02/01/2024 2:10 PM EST documented as of this encounter Results * Tissue transglutaminase, IgA (04/22/2023 3:12 PM EST) TTG IgA Ab 1.2 <=10.0 u/ml [facility] Comment: Negative: ??<7 units/mL Indeterminate: 7-10 units/mL Positive: ??>10 units/mL Blood 04/22/2023 3:12 PM EST 04/25/2023 7:20 AM EST Narrative Resulting Agency Comment Spec In Lab Khloe Calvert LEAD FORMER IMMUNOLOGY ORDERAB LES Performing Organization Address City/State/[facility] Co de Phone Number [facility] [place] [address] * Mitochondrial Antibody, M2 (04/22/2023 3:12 PM EST) Mitochon Ab (MAY) <0.1 <0.1 (Negative) U [facility] Comment: Test Performed by: [facility] [address] [place] [id number] Shipping Clerk Crating: Luis Vega M.D. Ph.D.; CLIA# [id number] Blood 04/22/2023 3:12 PM EST 04/25/2023 6:14 AM EST Narrative Resulting Agency Comment Spec In Lab Khloe Calvert LEAD FORMER LAB SEND OUT ORDER NENA Performing Organization Address [facility] Co de Phone Number [facility] [place] [address] * (ABNORMAL) Iron and TIBC (04/22/2023 3:12 PM EST) Iron 33(L) 45 - 160 mcg/dL [facility] TIBC 334 250 - 450 mcg/dL [facility] Iron Saturation 10(L) 20 - 50 % [facility] Blood 04/22/2023 3:12 PM EST 04/22/2023 3:21 PM EST Narrative Resulting Agency Comment Spec In Lab Khloe Calvert LEAD FORMER CHEMISTRY ORDERABL ES Performing Organization Address [facility] Co de Phone Number [facility] [place] [address] * IgG (04/22/2023 3:12 PM EST) Immunoglobulin G 1,250 700 - 1,600 mg/dL [facility] Comment: Pediatric Reference Intervals obtained from the Caliper Reference Interval project. http://www.sickkids.ca/caliperproject/index.html Blood 04/22/2023 3:12 PM EST 04/22/2023 3:21 PM EST Narrative Resulting Agency Comment Spec In Lab Khloe Calvert LEAD FORMER CHEMISTRY ORDERABL ES Performing Organization Address [facility] Co de Phone Number [facility] [place] [address] * (ABNORMAL) Ferritin (04/22/2023 3:12 PM EST) Ferritin 18(L) 31 - 409 ng/mL [facility] Comment: Please note that as of 02/09/2023, the reference intervals for Ferritin have been updated. Blood 04/22/2023 3:12 PM EST 04/22/2023 3:21 PM EST Narrative Resulting Agency Comment Spec In Lab Khloe Calvert APRN CHEMISTRY ORDERABL ES Performing Organization Address [facility]/ZIP Co de Phone Number [facility] [place] [address] * Smooth Muscle Antibody (04/22/2023 3:12 PM EST) Sm Muscle Ab (JULY) Negative Negative [facility] Comment: Negative: No further testing will be performed ADDITIONAL INFORMATION This test was developed and its performance characteristics determined by [facility] in a manner consistent with CLIA requirements. This test has not been cleared or approved by the U.S. Food and Drug Administration. Test Performed by: [facility] [place] [address] Shipping Clerk Crating: Luis Vega M.D. Ph.D.; CLIA# [id number] Blood 04/22/2023 3:12 PM EST 04/25/2023 6:14 AM EST Narrative Resulting Agency Comment Spec In Lab Khloe Calvert APRN LAB SEND OUT ORDER NENA Performing Organization Address [facility] Co de Phone Number [facility] [place] [address] * SENTHIL Antibody Screen (04/22/2023 3:12 PM EST) SENTHIL Ab Screen Negative Negative [facility] Comment: This antinuclear antibody (SENTHIL) screen is a qualitative test performed using a fluoroenzyme immunoassay on the Udorse 250 analyzer. This screen is designed to [...] performed by the Special Chemistry Laboratory at [facility]. This change in testing location is associated with a change is testing method and reference intervals. Please review the results of this test in association with the posted reference intervals. dsDNA Ab 1.1 <=15.0 IU/mL [facility] Comment: <10 negative 10-15 equivocal >15 positive This dsDNA antibody result was generated using a fluoroenzyme immunoassay on the [employer] 250 analyzer. This quantitative test is designed to detect IgG antibodies directed against double stranded DNA in human serum. The presence of antibodies that recognize dsDNA is a highly specific marker for systemic lupus erythematosus. Please note that as of 12/29/2021 that this testing is performed by the Special Chemistry Laboratory at [facility]. This change in testing location is associated with a change is testing method and reference intervals. Please review the results of this test in association with the posted reference intervals. Blood 04/22/2023 3:12 PM EST 04/25/2023 7:20 AM EST Narrative Resulting Agency Comment Spec In Lab Khloe Calvert LEAD FORMER LAB SEND OUT ORDER NENA Performing Organization Address [facility] Co de Phone Number [facility] [place] [address] * (ABNORMAL) A1AT Serum Concentration (04/22/2023 3:12 PM EST) A1AT 201(H) 90 - 200 mg/dL [facility] Blood 04/22/2023 3:12 PM EST 04/22/2023 3:21 PM EST Narrative Resulting Agency Comment Spec In Lab Khloe Calvert LEAD FORMER CHEMISTRY ORDERABL ES Performing Organization Address [facility] de Phone Number [facility] [place] [address] * Miscellaneous Lab request (04/22/2023 3:12 PM EST) Label Request received in lab. [facility] Blood 04/22/2023 3:12 PM EST 04/22/2023 3:21 PM EST Narrative Resulting Agency Comment Spec In Lab Khloe N Bellmore LEAD FORMER LAB SEND OUT ORDER NENA Performing Organization Address [facility] Co de Phone Number [facility] [place] [address] * AFP tumor marker (04/22/2023 3:12 PM EST) Alpha Fetoprotein 2.8 <=8.3 ng/mL [facility] Comment: This result was generated using a Cally Peterson immunoassay. ??Results obtained from other methods or manufacturers cannot be used interchangeably with this method. Blood 04/22/2023 3:12 PM EST 04/22/2023 3:21 PM EST Narrative Resulting Agency Comment Spec In Lab Khloe N Enrike LEAD FORMER CHEMISTRY ORDERABL ES Performing Organization Address [facility] de Phone Number [facility] [place] [address] * (ABNORMAL) Prothrombin Time (04/22/2023 3:12 PM EST) Pathologist [facility] Prothrombin Time 16.9(H) 9.4 - 12.5 sec [facility] International Normalization Ratio 1.5 [facility] Comment: An INR <2.0 indicates adequate [...] Agency Comment Spec In Lab Khloe Calvert LEAD FORMER HEMATOLOGY ORDERAB LES Performing Organization Address [facility] Co de Phone Number [facility] [place] [address] * (ABNORMAL) Comprehensive metabolic panel (non-fasting) (04/22/2023 3:12 PM EST) Glucose 118 65 - 199 mg/dL [facility] Comment:Diabetes: >=200 mg/d L plus symptoms Blood Urea Nitrogen 16 10 - 20 mg/dL [facility] Creatinine 0.52(L) 0.80 - 1.50 mg/dL [facility] Sodium 132(L) 135 - 145 mmol/L [facility] Potassium 3.9 3.5 - 5.0 mmol/L [facility] Comment: Please note: ??Patients with WBC >100,000 may have falsely elevated Potassium levels. ??For accurate Potassium quantification in these patients send serum separator tube (gold top) for subsequent determinations. ??Contact the Clinical Chemistry Laboratory if there are any questions. Chloride 102 98 - 107 mmol/L [facility] Carbon Dioxide 21(L) 22 - 31 mmol/L [facility] Anion Gap 9 5 - 15 mmol/L [facility] Calcium 9.1 8.5 - 10.5 mg/dL [facility] Protein, Total 6.5 6.1 - 8.0 g/dL [facility] Albumin 3.6 3.2 - 5.2 g/dL [facility] Aspartate Aminotransferase 41(H) 0 - 39 unit/L [facility] Alanine Aminotransferase 21 0 - 55 unit/L [facility] Alkaline Phosphatase 110 40 - 130 unit/L [facility] Bilirubin, Total 1.3 0.2 - 1.3 mg/dL [facility] Est Glomerular Filtration Rate 124 >=60 mL/min/1. 73 m?? [facility] Comment: This patient's estimated GFR [...] Agency Comment Spec In Lab Khloe Calvert LEAD FORMER [place] [address] documented in this encounter Visit Diagnoses Diagnosis Alcoholic cirrhosis of liver with ascites Alcoholic cirrhosis of liver Hepatic encephalopathy Iron deficiency anemia due to chronic blood loss Iron deficiency anemia secondary to blood loss (chronic) Right inguinal hernia Inguinal hernia without mention of obstruction or gangrene, unilateral or unspecified, (not specified as recurrent) documented in this encounter Care Teams Dining Car Hop Relationship Specialty Start Date End Date Tonia Hauser PA [address] [place] [address] PCP - General Family Medicine 04/13/23 documented as of this encounter
--- OUTSIDE RECORDS SUMMARY | 2023-12-26 11:41 | XMS_ITS | Encounter Summary ---
Author Organization [facility] Address [facility] [place] [address] Care Team Providers Care Health Sciences Department Chair Name Role Phone Tonia Hauser Primary Care Provider [phone] Reason for Visit * Reason Onset Date Comments Labs Only 03/01/2023 Encounter Details Date Type Department Care Team (Late st Contact Info) Description 03/01/2023 Telephone Hematology/Oncology at [address] [phone] Shameka De La Torre RN Labs Only Social History Tobacco Use Types Packs/Day Years [...] encounter Miscellaneous Notes * Telephone Encounter - Shameka De La Torre RN - 03/01/2023 11:[address] Durbin she would like pt to get labs today so she can review to see if he still has low white count and needs to be seen. Pt agrees to go to [facility] today. documented in this encounter Plan of Treatment Upcoming Encounters Date Type Department Care Team (Latest Contact Info) Description 02/01/2024 2:10 PM EST Hospital Encounter [place] [address] Franklin Ramirez MD [address] [place] [address] [place] [address] 02/01/2024 2:10 PM EST - 02/01/2024 4:50 PM EST Surgery [place] [phone] Franklin Ramirez MD [address] [place] [address] REPAIR INGUINAL HERNIA, 5 YR OR OLDER, REDUCIBLE (WRVU 7.96) 03/05/2024 11:45 AM EST Office Visit General Surgery at [address] [address] Franklin Ramirez MD [address] [place] [address] Scheduled Procedures Name Priority Associated Diagnoses Date/Ti az REPAIR INGUINAL HERNIA, 5 YR OR OLDER, REDUCIBLE (WRVU 7.96) Right inguinal hernia 02/01/2024 2:10 PM EST MODIFIER MESH,BARD FLAT MESH Right inguinal hernia 02/01/2024 2:10 PM EST documented as of this encounter Visit Diagnoses Not on filedocumented in this encounter Care Teams Health Sciences Department Chair Relationship Specialty Start Date End Date Tonia Hauser PA [address] [place] [address] PCP - General Family Medicine 02/11/23 03/27/23 documented as of this encounter
--- OUTSIDE RECORDS SUMMARY | 2023-12-26 11:41 | XMS_ITS | Encounter Summary ---
Author Organization [facility] [place] [address] Care Team Providers Care Fur Tinter Name Role Phone Tonia Hauser Primary Care Provider [phone] Reason for Visit * Reason Comments Follow-up Pt here for follow u p. Not sure what for. Encounter Details Date Type Department Care Team (Late st Contact Info) Description 04/19/2023 9:30 AM EST Office Visit Family Medicine at [facility] [address] [place] [id number] Tonia Hauser PA [address] [place] [address] Alcoholic cirrhosis of liver with ascites; Boil, face Social History Tobacco Use Types Packs/Day Years Used Date Smoking Tobacco: Every Day Cigarettes 1.5 30 Smokeless Tobacco: Never Alcohol Use Standard Drinks/Week Comments Not Currently 0 (1 standard drink = 0.6 oz pur e alcohol) 03/15/23 16 weeks sober [facility] Utilities Answer Date Recorded In the past 12 months has [employer], gas, oil, or water [employer] threatened to shut off services in your [...] Sign Reading Time Taken Comments Blood Pressure 120/54 04/19/2023 9:37 AM EST Pulse 92 04/19/2023 9:37 AM EST Temperature - - Respiratory Rate - - Oxygen Saturation 99% 04/19/2023 9:37 AM EST Inhaled Oxygen Concentration - - Weight 67.1 kg (148 lb) 04/19/2023 9:37 AM EST Height 174.6 cm (5' 8.74) 04/19/2023 9:37 AM ES T Body Mass Index 22.02 04/19/2023 9:37 AM EST documented in this encounter Progress Notes * Tonia Hauser PA - 04/19/2023 9:30 AM EST Shakir Sexton is a 48 y.o. male, patient of ROSALES Akins, presenting for Chief Complaint Patient presents with Follow-up Pt here for follow up. Not sure what for. . Subjective HPI: Shakir is a 48 y.o. male with a medical history of alcoholic cirrhosis presenting today for follow up. Details/additional concerns: 1. Establishing PCP Trying to establish PCPin [place] which is closer to home Called this office and was told he was on the waiting list for the past 3 months Called them again and they said they did not have any records So now has paperwork for release of information to send the records to this other place He doesn't trust this other place now because they keep saying he's on wait Now he's worried that we will drop him and/or [place] will not see him 2. Alcoholic cirrhosis Previously was having paracentesis every other Tuesday Has not been building ascites enough to have it drained so has been going to his appointments without any significant drainage Eating healthy - oranges, bananas, chicken, fish, ensure, water, no soda, avoiding red meat as muchas he can Not eating a lot of vegetables ROS: See Subjective history Patient Active Problem List Diagnosis Code Alcoholic cirrhosis of liver with ascites K70.31 Acute GI bleeding K92.2 Prolonged Q-T interval on ECG R94.31 Hyponatremia E87.1 Cigarette smoker F17.210 End stage liver disease K72.10 *Severe alcohol use disorder F10.20 Current Outpatient Medications on File Prior to Visit Medication Sig Dispense Refill potassium chloride ER (Klor-Con, K-Tab) 10 mEq ER tablet Take 1 tablet by mouth daily. 90 tablet 3 multivitamin Qbio-Yu-DS-Min (Therapeutic-M) 27-0.4 mg Tablet Take 1 tablet [...] daily (STOP second pill). 180 tablet 0 multivitamin with minerals (Thera M) 9 mg iron-400 mcg Tablet Take 1 tablet by mouth daily. furosemide (Lasix) 40 mg tablet Take 1 tablet by mouth daily. 30 tablet 3 No current facility-administered medications on file prior to visit. No Known Allergies Social History Socioeconomic History Marital status: Single Spouse name: Not on file Number of children: Not on file Years of education: Not on file Highest education level: Not on file Occupational History Not on file Tobacco Use Smoking status: Every Day Packs/day: 1.50 Years: 30.00 Additional pack years: 0.00 Total pack years: 45.00 Types: Cigarettes Smokeless tobacco: Never Vaping Use Vaping Use: Never used Substance and Sexual Activity Alcohol use: Not Currently Comment: 03/15/23 16 weeks sober Drug use: Not Currently Sexual activity: Yes Partners: Female Comment: with [...] file Intimate Partner Violence: Not At Risk (04/12/2023) IPV Inpatient Questions Prevent Contact with Others: [...] No family history on file. OBJECTIVE BP 120/54 (BP Location (NBP): Right arm, Patient Position: Sitting, BP Cuff Sizes: Adult (25-34 cm)) Pulse 92 Ht 174.6 cm (5' 8.74) Wt 67.1 kg (148 lb) SpO2 99% BMI 22.02 kg/m?? Physical Exam Vitals reviewed. Constitutional: General: He is not in acute distress. Eyes: General: Scleral icterus present. Cardiovascular: Rate and Rhythm: Normal rate and regular rhythm. Heart sounds: Normal heart sounds, S1 normal and S2 normal. No murmur heard. No friction rub. No gallop. Pulmonary: Effort: Pulmonary effort is normal. Breath sounds: Normal breath sounds. Abdominal: General: Abdomen is protuberant. There is no distension. Palpations: Abdomen is soft. Tenderness: There is no abdominal tenderness. Musculoskeletal: Right lower leg: No edema. Left lower leg: No edema. Skin: General: Skin is warm and dry. Findings: Lesion (raised, erythematous lesion on left cheek. No areas of fluctuance) present. Neurological: Mental Status: He is alert and oriented to person, place, and time. Motor: Motor function is intact. Gait: Gait is intact. Psychiatric: Attention and Perception: Attention normal. Mood and Affect: Mood and affect normal. Behavior: Behavior is cooperative. Cognition and Memory: Cognition normal. The ASCVD Risk score (Billy DK, et al., 2019) failed to calculate for the following reasons: Cannot find a previous HDL lab Cannot find a previous total cholesterol lab ASSESSMENT & PLAN Shakir is a 48 y.o. male with a medical history of alcoholic cirrhosis presenting today for follow up. Shakir was seen today for follow-up . Diagnoses and all orders for this visit: Alcoholic cirrhosis of liver with ascites Is currently stable and has improved even further since the last time I saw him. There is newly no finding of ascites on exam and he is being very compliant with all of his medications and follow-up visits. He should still continue to keep his appointments every other Tuesday for paracentesis in the event something occurs he does not want to be without the option to continue these appointments Provided reassurance that we are not going to drop him as a patient and that he should complete thepaperwork for [facility] again and let us know how else we can assist in this process. It has been a pretty extensive process with both me and his previous doctor, Isabel Pickard, havingcontacted this practice on Shakir's behalf [place] is the ideal location for him as getting to and from [facility] takes him in over an hour both ways Boil, face No areas of fluctuance or evidence of abscess Continue with warm compresses Strict ER precautions reviewed Total time on date of encounter was 30 minutes including the any of the following activities as necessary for completion of the visit: Preparing to see pt, review of tests Obtaining and/or reviewing separately obtained history (eg, outside records, caregiver) Counseling and educating the patient/family/caregiver Referring and communicating with other health health care manager Documenting clinical information in the electronic or other health record Independently interpreting results Care coordination ROSALES Akins 11:50 AM 04/19/2023 documented in this encounter Plan of Treatment Upcoming Encounters Date Type Department Care Team (Latest Contact Info) Description 02/01/2024 2:10 PM EST Hospital Encounter [place] [address] Franklin Ramirez MD [address] [place] [address] [place] [address] 02/01/2024 2:10 PM EST - 02/01/2024 4:50 PM EST Surgery [place] [address] Franklin Ramirez MD [address] [place] [address] [place] [address] REPAIR INGUINAL HERNIA, 5 YR OR OLDER, REDUCIBLE (WRVU 7.96) 03/05/2024 11:45 AM EST Office Visit General Surgery at [address] [address] Franklin Ramirez MD [address] [place] [address] [place] [address] Scheduled Procedures Name Priority Associated Diagnoses Date/Ti me REPAIR INGUINAL HERNIA, 5 YR OR OLDER, REDUCIBLE (WRVU 7.96) Right inguinal hernia 02/01/2024 2:10 PM EST MODIFIER MESH,BARD FLAT MESH Right inguinal hernia 02/01/2024 2:10 PM EST documented as of this encounter Visit Diagnoses Diagnosis Alcoholic cirrhosis of liver with ascites Alcoholic cirrhosis of liver Boil, face Carbuncle and furuncle of face Right inguinal hernia Inguinal hernia without mention of obstruction or gangrene, unilateral or unspecified, (not specified as recurrent) documented in this encounter Care Teams Fur Tinter Relationship Specialty Start Date End Date Tonia Hauser PA [address] [place] [address] PCP - General Family Medicine 04/13/23 documented as of this encounter
--- OUTSIDE RECORDS SUMMARY | 2023-12-26 11:41 | XMS_ITS | Encounter Summary ---
Author Organization [facility] [place] [address] Care Team Providers Care Primary Care Pediatrician Name Role Phone Tawnya Mcarthur Primary Care Provider [phone] Encounter Details Date Type Department Care Team (Late st Contact Info) Description 02/14/2023 Telephone Internal Medicine at [facility] [place] [address] Chidi Campbell Social History Tobacco Use Types Packs/Day Years Used Date Smoking Tobacco: Every Day Cigarettes 1.5 30 Smokeless Tobacco: Never Alcohol Use Standard Drinks/Week Comments Never 0 (1 standard drink = 0.6 oz pur e alcohol) PENDING SALE TO [facility] Inpatient Questions Answer Date Recorded Does Anyone [...] encounter Miscellaneous Notes * Telephone Encounter - Chidi Campbell - 02/14/2023 11:09 AM EST Copied from [facility] #[id number]. Topic: Appointment Scheduling - Appointment Needed >> Feb 14, 2023 8:37 AM Helga Ferraro wrote: Appt Needed PCP: TAWNYA MCARTHURt. Type Needed: FUV Reason for Visit: Patient calling back stating someone was supposed to contact him on Tuesday to reschedule an appointment he canceled due to weather. It is showing that this appt is to be in [facility], but the patient has a PCP in [facility] and a NPV in March in [facility]. The appt notes for this appointment states 2 week f/u per Dr. Phelps with [facility]. This agent contacted [facility] who was confused by this as well and this agent tried to locate an appt to reschedule perthe one canceled with [facility], and wasn't able to locate anything available . Patient states his PCP is Isabel Pickard in [place]. See telephone encounter from 02/04 and 02/07.Please advise on this if possible. Reason That Appointment Was Not Scheduled: Nothing available per pt preferences and appt is in a different location than Patient's PCP and pt thinks his PCP is in [place]. documented in this encounter Plan of Treatment Upcoming Encounters Date Type Department Care Team (Latest Contact Info) Description 02/01/2024 2:10 PM EST Hospital Encounter [place] [address] Franklin Ramirez MD [address] [place] [address] [place] [address] 02/01/2024 2:10 PM EST - 02/01/2024 4:50 PM EST Surgery [place] [address] Franklin Ramirez MD [address] [place] [address] [place] [address] REPAIR INGUINAL HERNIA, 5 YR OR OLDER, REDUCIBLE (WRVU 7.96) 03/05/2024 11:45 AM EST Office Visit General Surgery at [address] [address] Franklin Ramirez MD [address] [place] [address] [place] [address] Scheduled Procedures Name Priority Associated Diagnoses Date/Ti me REPAIR INGUINAL HERNIA, 5 YR OR OLDER, REDUCIBLE (WRVU 7.96) Right inguinal hernia 02/01/2024 2:10 PM EST MODIFIER MESH,BARD FLAT MESH Right inguinal hernia 02/01/2024 2:10 PM EST documented as of this encounter Visit Diagnoses Not on filedocumented in this encounter Care Teams Primary Care Pediatrician Relationship Specialty Start Date End Date Tawnya Mcarthur PA [address] [place] [address] PCP - General Family Medicine 02/11/23 03/27/23 documented as of this encounter
--- OUTSIDE RECORDS SUMMARY | 2023-12-26 11:41 | XMS_ITS | Encounter Summary ---
Author Organization [facility] Address [facility] [place] [address] Care Team Providers Care Athletic Gear Custodian Name Role Phone Tawnya Mcarthur Primary Care Provider [phone] Reason for Visit * Reason Onset Date Comments Follow-up 02/24/2023 Patient requesti ng a phone call from PCP - Tawnya Mcarthur Encounter Details Date Type Department Care Team (Late Contact Info) Description 02/24/2023 Nurse Triage Family Medicine at [facility] [address] [place] [address] Kylah Dow RN Follow-up (Patient requesting a phone call from PCP - Tawnya Mcarthur) Social History Tobacco Use Types Packs/Day Years [...] Telephone Encounter - Kylah Dow RN - 02/24/2023 12:40 PM EST Copied from [facility] #[id number]. Topic: Triage - Triage >> Feb 24, 2023 12:35 PM Alex Aaron wrote: Symptom: Personal Issue PCP: TAWNYA MCARTHUR Additional Comments: Patient called requesting a call back from Tanwya Mcarthur when she is available, patient did not provide further details. Please call patient to discuss further and advise. Patient identified by Full Name and . Calling to report he spoke to staff at [facility]. He completed paperwork. Will take 3 months or longer to get an appointment with new PCP in their clinic. Scheduled appointment 03/15/22 to establish care with ROSALES Mckeon. Message forwarded to PCP for review and guidance. documented in this encounter Plan of Treatment Upcoming Encounters Date Type Department Care Team (Latest Contact Info) Description 02/01/2024 2:10 PM EST Hospital Encounter [place] [address] Franklin Ramirez MD [address] [place] [address] [place] [address] 02/01/2024 2:10 PM EST - 02/01/2024 4:50 PM EST Surgery [place] [address] Franklin Ramirez MD [address] [place] [address] [place] [address] REPAIR INGUINAL HERNIA, 5 YR OR OLDER, REDUCIBLE (WRVU 7.96) 03/05/2024 11:45 AM EST Office Visit General Surgery at [address] [phone] Franklin Ramirez MD [address] [place] [address] [place] [address] Scheduled Procedures Name Priority Associated Diagnoses Date/Ti ri REPAIR INGUINAL HERNIA, 5 YR OR OLDER, REDUCIBLE (WRVU 7.96) Right inguinal hernia 02/01/2024 2:10 PM EST MODIFIER MESH,BARD FLAT MESH Right inguinal hernia 02/01/2024 2:10 PM EST documented as of this encounter Visit Diagnoses Not on filedocumented in this encounter Care Teams Athletic Gear Custodian Relationship Specialty Start Date End Date Tawnya Mcarthur PA [address] [place] [address] PCP - General Family Medicine 02/11/23 03/27/23 documented as of this encounter
--- OUTSIDE RECORDS SUMMARY | 2023-12-26 11:41 | XMS_ITS | Encounter Summary ---
Author Organization [facility] Address [facility] [place] [address] Care Team Providers Care Party Plan Dealer Name Role Phone Tonia Hauser Primary Care Provider [phone] Encounter Details Date Type Department Care Team (Latest Contact Info) Description 04/19/2023 Travel Social History Tobacco Use Types Packs/Day Years Used Date Smoking Tobacco: Every Day Cigarettes 1.5 30 Smokeless Tobacco: Never Alcohol Use Standard Drinks/Week Comments Not Currently 0 (1 standard drink = 0.6 oz pur e alcohol) 03/15/23 16 weeks sober [facility] Utilities Answer Date Recorded In the past 12 months has [employer], gas, oil, or water [employer] threatened to shut off services in your [...] Encounter [place] [address] Franklin Ramirez MD [address] [place] [address] [place] [address] 02/01/2024 2:10 PM EST - 02/01/2024 4:50 PM EST Surgery [place] [address] Franklin Ramirez MD [address] [place] [address] [place] [address] REPAIR INGUINAL HERNIA, 5 YR OR OLDER, REDUCIBLE (WRVU 7.96) 03/05/2024 11:45 AM EST Office Visit General Surgery at [facility] [address] [place] [address] [place] [address] Franklin Ramirez MD [address] [place] [address] [place] [address] Scheduled Procedures Name Priority Associated Diagnoses Date/Ti me REPAIR INGUINAL HERNIA, 5 YR OR OLDER, REDUCIBLE (WRVU 7.96) Right inguinal hernia 02/01/2024 2:10 PM EST MODIFIER MESH,BARD FLAT MESH Right inguinal hernia 02/01/2024 2:10 PM EST documented as of this encounter Visit Diagnoses Not on filedocumented in this encounter Care Teams Party Plan Dealer Relationship Specialty Start Date End Date Tonia Hauser PA [address] [place] [address] PCP - General Family Medicine 04/13/23 documented as of this encounter
--- OUTSIDE RECORDS SUMMARY | 2023-12-26 11:41 | XMS_ITS | Encounter Summary ---
Author Organization [facility] Address One [facility] [place] [address] Care Team Providers Care Automobile Club Travel Counselor Name Role Phone Tonia Hauser Primary Care Provider [phone] Reason for Referral * Consultation (Routine) - Closed Specialty Diagnoses / Procedures Referred By Contac t Referred To Contact Diagnoses Alcoholic cirrhosis of liver with ascites Tonia Hauser PA [address] [place] [address] [facility] [place] [address] Referral ID Status Reason Start Date Expiration Date V isits Requested Visits Authorized [id number] Closed Consult, Test & Treat 03/15/2023 09/11/2023 1 1 Scheduling Instructions GI at [facility] [place], [place] Reason for Visit * Reason Comments Establish Care Encounter Details Date Type Department Care Team (Late st Contact Info) Description 03/15/2023 10:30 AM EST Office Visit Family Medicine at [facility] [address] [place] [address] Tonia Hauser PA [address] [facility] [place] [address] Alcoholic cirrhosis of liver with ascites (Primary Dx); Cigarette smoker; Healthcare maintenance Social History Tobacco Use Types Packs/Day Years Used Date Smoking Tobacco: Every Day Cigarettes 1.5 30 Smokeless Tobacco: Never Tobacco Cessation:Ready to Q uit: Not Asked; Counseling Given: Not Answered Alcohol Use Standard Drinks/Week Comments Not Currently 0 (1 standard drink = 0.6 oz pur e alcohol) 03/15/23 16 weeks sober [facility] Utilities [...] place to sleep or slept in a group home (including now)? No 03/15/2023 DH IPV [...] Sign Reading Time Taken Comments Blood Pressure 126/66 03/15/2023 10:21 AM EST Pulse 66 03/15/2023 10:21 AM EST Temperature - - Respiratory Rate - - Oxygen Saturation 100% 03/15/2023 10:21 AM EST Inhaled Oxygen Concentration - - Weight 66.8 kg (147 lb 3.2 oz) 03/15/2023 10:21 AM EST Height 174.6 cm (5' 8.75) 03/15/2023 10:21 AM Sandhya LUJAN Body Mass Index 21.9 03/15/2023 10:21 AM EST documented in this encounter Progress Notes * Tonia Hauser PA - 03/15/2023 10:30 AM EST SUBJECTIVE Shakir Sexton is a 48 y.o. male presenting today for: Chief Complaint Patient presents with Establish Care YASIR Schilling is a new patient to the [facility]. Today's visit is to establish care and perform an in-depth review the patient's full history. If aspects of the annual physical exam are performed, they will be noted throughout the chart. What brings you [facility]?: establish care while waiting for PCP closer to home Previous PCP/Office: none [] Records Received Last full physical: unknown Acute concerns: Establish care Is on wait-list for PCP closer to home at [facility] - thinks he will be able to go there in about a month Ascites Has appt for paracentesis this Tuesday (03/18/23) Not particularly bothered by his current level of ascites Doing very well with his current medications Has been sober from alcohol for 16 weeks Does not currently have a liver specialist Has a GI appt with in April but would like to have someone closer to home Eating well Having solid stools Still smoking cigarettes but has cut back slowly Health Maintenance Due Topic Date Due Colorectal Cancer Screening Never done Covid-19 Vaccine (1) Never done Pneumococcal Vaccine: At-Risk 5-64yrs (1 of 2 - PCV) Never done Lipid Screening Never done Tdap adult Never done Tetanus vaccine Never done Influenza (Flu) vaccine (1 of 1 - Influenza standard series) Never done Review of Systems Gastrointestinal: Positive for abdominal distention. Negative for abdominal pain, blood in stool, diarrhea, nausea and vomiting. All other systems reviewed and are negative. The following was reviewed and updated: Past medical history, family history, social history, medications, labs, and problem list. Patient Active Problem List Diagnosis Code Alcoholic cirrhosis of liver with ascites K70.31 Acute GI bleeding K92.2 Prolonged Q-T interval on ECG R94.31 Hyponatremia E87.1 Cigarette smoker F17.210 End stage liver disease K72.10 *Severe alcohol use disorder F10.20 Current Outpatient Medications on File Prior to Visit Medication Sig Dispense Refill lactulose (Chronulac) 10 gram/15 mL Solution Take [...] daily (STOP second pill). 180 tablet 0 potassium chloride ER (Klor-Con, K-Tab) 10 mEq ER tablet Take 1 tablet by mouth daily. 90 tablet 3 folic acid (Vitamin B9) 1 mg tablet Take 1 tablet by mouth daily. 30 tablet 1 multivitamin with minerals (Thera M) 9 mg [...] Not on file Intimate Partner Violence: Not on file Housing Stability: Low Risk (03/15/2023) Housing Stability Vital Sign Unable to Pay for Housing in the Last Year: No Number of Places Lived in the Last Year: 1 Unstable Housing in the Last Year: No No family history on file. OBJECTIVE BP 126/66 (BP Location (NBP): Left arm, Patient Position: Sitting, BP Cuff Sizes: Small Adult (20-26 cm)) Pulse 66 Ht 174.6 cm (5' 8.75) Wt 66.8 kg (147 lb 3.2 oz) SpO2 100% BMI 21.90 kg/m?? Physical Exam Vitals reviewed. Constitutional: General: He is not in acute distress. Appearance: Normal appearance. Eyes: General: Scleral icterus present. Extraocular Movements: Extraocular movements intact. Pupils: Pupils are equal, round, and reactive to light. Cardiovascular: Rate and Rhythm: Normal rate and regular rhythm. Heart sounds: Normal heart sounds and S2 normal. No murmur heard. No friction rub. No gallop. Pulmonary: Effort: Pulmonary effort is normal. Breath sounds: Normal breath sounds. Abdominal: General: Bowel sounds are normal. There is distension. Palpations: There is shifting dullness and fluid wave. Tenderness: There is no abdominal tenderness. Musculoskeletal: Right lower leg: No edema. Left lower leg: No edema. Neurological: General: No focal deficit present. Mental Status: He is alert and oriented to person, place, and time. Psychiatric: Attention and Perception: Attention normal. Mood and Affect: Mood and affect normal. Judgment: Judgment normal. The ASCVD Risk score (Billy MARTINEZ, et al., 2019) failed to calculate for the following reasons: Cannot find a previous HDL lab Cannot find a previous total cholesterol lab ASSESSMENT & PLAN Shakir is a 48 y.o. male new patient to the [facility]. Today, we reviewed their full medical history, as reflected in the patient's chart. Details on chronic conditions or acute concerns as follows: Shakir was seen today for establish care. Diagnoses and all orders for this visit: Alcoholic cirrhosis of liver with ascites - Referral to Gastroenterology - Ammonia; Future - Lipase; Future - Amylase; Future Cigarette smoker Healthcare maintenance Overall Shakir is stable Has some ascitic build-up but has appointment for paracentesis on Tuesday No signs of AMS or encephalopathy Referral placed to GI closer to home. Still keep the appointment with GI on 04/27/23 Repeat lab work today including standing order of CBC and CMP from hematology doctor Encouraged continuation of sobriety and further reduction of cigarette use Pt would like to wait until he sees his new PCP closer to home to have colonoscopy and lung cancer screening CT ordered I will continue to refill medications for him until he is able to be seen by his new PCP Total time on date of encounter was 30 minutes including the any of the following activities as necessary for completion of the visit: Preparing to see pt, review of tests Obtaining and/or reviewing separately obtained history (eg, outside records, caregiver) Counseling and educating the patient/family/caregiver Referring and communicating with other health home care rn Documenting clinical information in the electronic or other health record Independently interpreting results Care coordination ROSALES Akins 12:03 PM 03/15/2023 documented in this encounter Plan of Treatment Upcoming Encounters Date Type Department Care Team (Latest Contact Info) Description 02/01/2024 2:10 PM EST Hospital Encounter [place] [address] Frnaklin Ramirez MD [address] [place] [address] 02/01/2024 2:10 PM EST - 02/01/2024 4:50 PM EST Surgery [place] [address] Franklin Ramirez MD [address] [facility] [place] [address] REPAIR INGUINAL HERNIA, 5 YR OR OLDER, REDUCIBLE (WRVU 7.96) 03/05/2024 11:45 AM EST Office Visit General Surgery at [facility] [address] [place] [phone] Franklin Ramirez MD [address] [place] [address] [place] [address] Scheduled Procedures Name Priority Associated Diagnoses Date/Ti mt REPAIR INGUINAL HERNIA, 5 YR OR OLDER, REDUCIBLE (WRVU 7.96) Right inguinal hernia 02/01/2024 2:10 PM EST MODIFIER MESH,BARD FLAT MESH Right inguinal hernia 02/01/2024 2:10 PM EST Scheduled Referrals Name Type Priority Associated Diagnoses Order Schedule Referral to Gastroenterology Outpatient Referral Routine Alcoholic cirrhosis of liver with ascites Ordered: 03/15/2023 documented as of this encounter Results * (ABNORMAL) Amylase (03/15/2023 11:24 AM EST) Amylase 116(H) 28 - 100 unit/L [facility] Blood 03/15/2023 11:2 4 AM EST 03/15/2023 1:05 PM EST Narrative Resulting Agency Comment Spec In Lab Aydee Lemons MD CHEMISTRY ORDERABLE S [facility] [place] [address] * (ABNORMAL) Lipase (03/15/2023 11:24 AM EST) Lipase 109(H) 0 - 60 unit/L [facility] Blood 03/15/2023 11:2 4 AM EST 03/15/2023 1:05 PM EST Narrative Resulting Agency Comment Spec In Lab Aydee Lemons MD CHEMISTRY ORDERABLE S Performing Organization Address City/[facility] Co de Phone Number [facility] [place] [address] * Ammonia (03/15/2023 11:24 AM EST) Ammonia 51 16 - 60 mcmol/L [facility] Blood 03/15/2023 11:2 4 AM EST 03/15/2023 5:56 PM EST Narrative Resulting Agency Comment Spec In Lab Aydee Lemons MD CHEMISTRY ORDERABLE S Performing Organization Address [facility] de Phone Number [facility] [place] [address] documented in this encounter Visit Diagnoses Diagnosis Alcoholic cirrhosis of liver with ascites- Primary Alcoholic cirrhosis of liver Cigarette smoker Tobacco use disorder Healthcare maintenance Routine general medical examination at a health care facility Right inguinal hernia Inguinal hernia without mention of obstruction or gangrene, unilateral or unspecified, (not specified as recurrent) documented in this encounter Care Teams Automobile Club Travel Counselor Relationship Specialty Start Date End Date Tonia Hauser PA [address] [place] [address] PCP - General Family Medicine 02/11/23 03/27/23 documented as of this encounter
--- OUTSIDE RECORDS SUMMARY | 2023-12-26 11:41 | XMS_ITS | Encounter Summary ---
Author Organization [facility] [place] [address] Care Team Providers Care Waste Water Or Water Plant Operator Name Role Phone Tonia Hauser Primary Care Provider [phone] Encounter Details Date Type Department Care Team (Late st Contact Info) Description 02/22/2023 Telephone [place] [address] Faith Hernandez Social History Tobacco Use Types Packs/Day Years Used Date Smoking Tobacco: Every Day Cigarettes 1.5 30 Smokeless Tobacco: Never Alcohol Use Standard Drinks/Week Comments Never 0 (1 standard drink = 0.6 oz pur e alcohol) [facility] Inpatient Questions Answer Date Recorded Does Anyone [...] PM EST Hospital Encounter [place] [address] Franklin Ramirez MD [address] [place] [address] [place] [address] 02/01/2024 2:10 PM EST - 02/01/2024 4:50 PM EST [place] [address] Franklin Ramirez MD [address] [place] [address] [place] [address] REPAIR INGUINAL HERNIA, 5 YR OR OLDER, REDUCIBLE (WRVU 7.96) 03/05/2024 11:45 AM EST Office Visit General Surgery at [facility] [address] [address] Franklin Ramirez MD [address] [place] [address] [place] [address] Scheduled Procedures Name Priority Associated Diagnoses Date/Ti in REPAIR INGUINAL HERNIA, 5 YR OR OLDER, REDUCIBLE (WRVU 7.96) Right inguinal hernia 02/01/2024 2:10 PM EST MODIFIER MESH,BARD FLAT MESH Right inguinal hernia 02/01/2024 2:10 PM EST documented as of this encounter Visit Diagnoses Not on filedocumented in this encounter Care Teams Waste Water Or Water Plant Operator Relationship Specialty Start Date End Date Tonia Hauser PA [address] [place] [address] PCP - General Family Medicine 02/11/23 03/27/23 documented as of this encounter
--- OUTSIDE RECORDS SUMMARY | 2023-12-26 11:41 | XMS_ITS | Encounter Summary ---
Author Organization [facility] Address One [facility] [place] [address] Care Team Providers Care Engine Testing Supervisor Name Role Phone Tonia Hauser Primary Care Provider [phone] Encounter Details Date Type Department Care Team (Latest Contact Info) Description 03/15/2023 11:10 AM EST Laboratory Appointment Lab at [facility] [address] [place] [phone] Alcoholic cirrhosis of liver with ascites Social History Tobacco Use Types Packs/Day Years Used Date Smoking Tobacco: Every Day Cigarettes 1.5 30 Smokeless Tobacco: Never Alcohol Use Standard Drinks/Week Comments Not Currently 0 (1 standard drink = 0.6 oz pur e alcohol) 03/15/23 16 weeks sober [facility] Utilities Answer Date Recorded In the [...] PM EST Hospital Encounter [place] [address] Franklin Ramirez MD [address] [place] [address] [place] [address] 02/01/2024 2:10 PM EST - 02/01/2024 4:50 PM EST Surgery [place] [address] Franklin Ramirez MD [address] [place] [address] [place] [address] REPAIR INGUINAL HERNIA, 5 YR OR OLDER, REDUCIBLE (WRVU 7.96) 03/05/2024 11:45 AM EST Office Visit General Surgery at [facility] [address] [place] [address] Franklin Ramirez MD [address] [place] [address] [place] [address] Scheduled Procedures Name Priority Associated Diagnoses Date/Ti mo REPAIR INGUINAL HERNIA, 5 YR OR OLDER, REDUCIBLE (WRVU 7.96) Right inguinal hernia 02/01/2024 2:10 PM EST MODIFIER MESH,BARD FLAT MESH Right inguinal hernia 02/01/2024 2:10 PM EST documented as of this encounter Procedures Procedure Name Priority Date/Time Associated Diagnosis Comments LIPASE Routine 03/15/2023 11:24 AM EST Alcoholic cirrhosis of liver with ascites AMYLASE Routine 03/15/2023 11:24 AM EST Alcoholic cirrhosis of liver with ascites AMMONIA Routine 03/15/2023 11:24 AM EST Alcoholic cirrhosis of liver with ascites documented in this encounter Results * Ammonia (03/15/2023 11:24 AM EST) Ammonia 51 16 - 60 mcmol/L [facility] Blood 03/15/2023 11:2 4 AM EST 03/15/2023 5:56 PM EST Narrative Resulting Agency Comment Spec In Lab Aydee Lemons MD CHEMISTRY ORDERABLE S [facility] [place] [address] * (ABNORMAL) Lipase (03/15/2023 11:24 AM EST) Lipase 109(H) 0 - 60 unit/L [facility] Blood 03/15/2023 11:2 4 AM EST 03/15/2023 1:05 PM EST Narrative Resulting Agency Comment Spec In Lab Aydee Lemons MD CHEMISTRY ORDERABLE S Performing Organization Address City/[facility]/ZIP Co de Phone Number [facility] [place] [address] * (ABNORMAL) Amylase (03/15/2023 11:24 AM EST) Amylase 116(H) 28 - 100 unit/L [facility] Blood 03/15/2023 11:2 4 AM EST 03/15/2023 1:05 PM EST Narrative Resulting Agency Comment Spec In Lab Aydee Lemons MD CHEMISTRY ORDERABLE S Performing Organization Address [facility] Co de Phone Number [facility] [place] [address] documented in this encounter Visit Diagnoses Diagnosis Alcoholic cirrhosis of liver with ascites Alcoholic cirrhosis of liver Right inguinal hernia Inguinal hernia without mention of obstruction or gangrene, unilateral or unspecified, (not specified as recurrent) documented in this encounter Care Teams Engine Testing Supervisor Relationship Specialty Start Date End Date Tonia Hauser PA [address] [place] [address] PCP - General Family Medicine 02/11/23 03/27/23 documented as of this encounter
--- OUTSIDE RECORDS SUMMARY | 2023-12-26 11:41 | XMS_ITS | Encounter Summary ---
Author Organization [facility] Address [facility] [place] [address] Care Team Providers Care Corporate Real Estate Manager Name Role Phone Unknown Primary Care Provider Unavailabl e Encounter Details Date Type Department Care Team (Late Contact Info) Description 01/25/2023 Telephone Hematology [place] [phone] Jermaine Karimi MD [facility] [address] HEMATOLOGY/[place] [address] Social History Tobacco Use Types Packs/Day Years Used Date Smoking Tobacco: Every Day Cigarettes 1.5 30 Smokeless Tobacco: Never Alcohol Use Standard Drinks/Week Comments Never 0 (1 standard drink = 0.6 oz pur e alcohol) [facility] Inpatient Questions Answer Date Recorded Does Anyone [...] encounter Miscellaneous Notes * Telephone Encounter - Jermaine Karimi MD - 01/25/2023 1:13 PM EST Brief Telephone note Caller: Dr Pickard ([facility]) 48M with ETOH related decompensated cirrhosis (ascites,encephalopathy) who was seen today in the [facility] access clinic. Neutrophils noted to be 900 down from 3,850 during his previous hosp. I was consulted to for further workup and evaluation of neutropenia. He was recently started on omeprazole in thesetting of UGIB and esophagitis. Rest of his counts significant for H/H of 10.1/29.7, Plts 190, Abs lymphcytes of 1.1, monos slightly elevatated to 1.5. Initial workup included repeat CBC, peipheral smear (although previous smear from 01/13 without appreciable dyspoiesis or atypical appearing cells). B12 elevated, folate WNL. Hep A/b non immune, hep cnegative, EBV, CMV PCR negative. No hx of HIV Abd ultrasound with mild splenomegaly. A/P: 48M with decompensated cirrhosis presenting today with neutropenia, anemia. -Suspect his neutropenia (and anemia) are 2/2 to his underlying liver disease. Would recommend close monitoring of his CBC, suggest a recheck in 7-10 days to ensure stability -Agree with rechecking smear. No dyspoiesis noted on prior smear from 01/13. -Recently started on Omeprazole. This has been implicated in neutropenia. Would be ideal to trial off of this, but given his recent esophagitis, GI bleed, I do think he should be on a PPI. Recommend switching to pantoprazole. Recheck cbc in 7-10 days. -Rule out underlying infection if there is a clinical suspicion (tick born, UTI, SBP) -Can round out the initial lab workup with copper (checking for copper deficiency) -Please place an outpatient hematology referral. documented in this encounter Plan of Treatment Upcoming Encounters Date Type Department Care Team (Latest Contact Info) Description 02/01/2024 2:10 PM EST Hospital Encounter [place] [phone] Franklin Ramirez MD [address] [place] [address] [place] [address] 02/01/2024 2:10 PM EST - 02/01/2024 4:50 PM EST Surgery [place] [address] Franklin Ramirez MD [address] [place] [address] [place] [address] REPAIR INGUINAL HERNIA, 5 YR OR OLDER, REDUCIBLE (WRVU 7.96) 03/05/2024 11:45 AM EST Office Visit General Surgery at [address] [phone] Franklin Ramirez MD [address] [place] [address] [place] [address] Scheduled Procedures Name Priority Associated Diagnoses Date/Ti la REPAIR INGUINAL HERNIA, 5 YR OR OLDER, REDUCIBLE (WRVU 7.96) Right inguinal hernia 02/01/2024 2:10 PM EST MODIFIER MESH,BARD FLAT MESH Right inguinal hernia 02/01/2024 2:10 PM EST documented as of this encounter Visit Diagnoses Not on filedocumented in this encounter Care Teams Corporate Real Estate Manager Relationship Specialty Start Date End Date Unknown None PCP - General 12/21/13 02/10/23 documented as of this encounter
--- OUTSIDE RECORDS SUMMARY | 2023-12-26 11:41 | XMS_ITS | Encounter Summary ---
Author Organization [facility] Address [facility] [place] [address] Care Team Providers Care Journalism Internship Name Role Phone Tonia Hauser Primary Care Provider [phone] Encounter Details Date Type Department Care Team (Late st Contact Info) Description 03/02/2023 Notes Only Hematology and Oncology at [facility] [address] Diana Durbin MD [facility] DR HEMATOLOGY [place] [address] Social History Tobacco Use Types Packs/Day Years Used Date Smoking Tobacco: Every Day Cigarettes 1.5 30 Smokeless Tobacco: Never Alcohol Use Standard Drinks/Week Comments Never 0 (1 standard drink = 0.6 oz pur e alcohol) [facility] Inpatient Questions Answer Date Recorded [...] as of this encounter Progress Notes * Diana Durbin MD - 03/02/2023 8:28 AM EST Patient referred for leukopenia/neutropenia. Before appointment I repeated the CBC. It has normalized. I suspect it was due to infection or virus. Has resolved. The patient has known anemia secondaryto gastritis and esophagitis/variceal bleed. This is being managed by PCP. Hematology consultation is no longer necessary. We have canceled the patient's appointments. Please reach out if we can be of further help. documented in this encounter Plan of Treatment Upcoming Encounters Date Type Department Care Team (Latest Contact Info) Description 02/01/2024 2:10 PM EST Hospital Encounter [place] [address] Franklin Ramirez MD [address] [place] [address] [place] [address] 02/01/2024 2:10 PM EST - 02/01/2024 4:50 PM EST Surgery [place] [address] Franklin Ramirez MD [address] [place] [address] [place] [address] REPAIR INGUINAL HERNIA, 5 YR OR OLDER, REDUCIBLE (WRVU 7.96) 03/05/2024 11:45 AM EST Office Visit General Surgery at [address] [address] Franklin Ramirez MD [address] [place] [address] [place] [address] Scheduled Procedures Name Priority Associated Diagnoses Date/Ti ma REPAIR INGUINAL HERNIA, 5 YR OR OLDER, REDUCIBLE (WRVU 7.96) Right inguinal hernia 02/01/2024 2:10 PM EST MODIFIER MESH,BARD FLAT MESH Right inguinal hernia 02/01/2024 2:10 PM EST documented as of this encounter Visit Diagnoses Not on filedocumented in this encounter Care Teams Journalism Internship Relationship Specialty Start Date End Date Tonia Hauser PA [address] [place] [address] PCP - General Family Medicine 02/11/23 03/27/23 documented as of this encounter
--- OUTSIDE RECORDS SUMMARY | 2023-12-26 11:41 | XMS_ITS | Encounter Summary ---
Author Organization [facility] Address [facility] [place] [address] Care Team Providers Care Chemical Blender Name Role Phone Unknown Primary Care Provider Unavailabl e Encounter Details Date Type Department Care Team (Late st Contact Info) Description 01/26/2023 Telephone Internal Medicine at [facility] [place] [phone] Isabel Pickard MD [facility] [place] [address] Social History Tobacco Use Types Packs/Day Years [...] Telephone Encounter - Isabel Pickard MD - 01/26/2023 2:54 PM EST Entered in errorr documented in this encounter Plan of Treatment Upcoming Encounters Date Type Department Care Team (Latest Contact Info) Description 02/01/2024 2:10 PM EST Hospital Encounter [place] [address] Franklin Ramirez MD [address] [place] [address] [place] [address] 02/01/2024 2:10 PM EST - 02/01/2024 4:50 PM EST Surgery Main [place] [address] Franklin Ramirez MD [address] [place] [address] REPAIR INGUINAL HERNIA, 5 YR OR OLDER, REDUCIBLE (WRVU 7.96) 03/05/2024 11:45 AM EST Office Visit General Surgery at [facility] [address] [address] Franklin Ramirez MD [address] [place] [address] Scheduled Procedures Name Priority Associated Diagnoses Date/Ti wv REPAIR INGUINAL HERNIA, 5 YR OR OLDER, REDUCIBLE (WRVU 7.96) Right inguinal hernia 02/01/2024 2:10 PM EST MODIFIER MESH,BARD FLAT MESH Right inguinal hernia 02/01/2024 2:10 PM EST documented as of this encounter Visit Diagnoses Not on filedocumented in this encounter Care Teams Chemical Blender Relationship Specialty Start Date End Date Unknown None PCP - General 12/21/13 02/10/23 documented as of this encounter
--- OUTSIDE RECORDS SUMMARY | 2023-12-26 11:41 | XMS_ITS | Encounter Summary ---
Author Organization [facility] Address [facility] [place] [address] Care Team Providers Care Roof Tile Layer Name Role Phone Tonia Hauser Primary Care Provider [phone] Reason for Visit * Reason Onset Date Comments Other 03/02/2023 Cancel hematolog y NPW Encounter Details Date Type Department Care Team (Late st Contact Info) Description 03/02/2023 Telephone Hematology/Oncology at [address] [phone] Shameka De La Torre RN Other (Cancel hematology NPW) Social History Tobacco Use Types Packs/Day Years [...] - Shameka De La Torre RN - 03/02/2023 8:[address] Durbin reviewed labs from yesterday and stated pt did not need to be seen. Anemia from cirrhosis and known GI bleed. Called pt and let him know he did not need to come he appreciated the call. documented in this encounter Plan of Treatment Upcoming Encounters Date Type Department Care Team (Latest Contact Info) Description 02/01/2024 2:10 PM EST Hospital Encounter [place] [address] Franklin Ramirez MD [address] [place] [address] [place] [address] 02/01/2024 2:10 PM EST - 02/01/2024 4:50 PM EST Surgery [place] [phone] Franklin Ramirez MD [address] [place] [address] REPAIR INGUINAL HERNIA, 5 YR OR OLDER, REDUCIBLE (WRVU 7.96) 03/05/2024 11:45 AM EST Office Visit General Surgery at [address] [address] Franklin Ramirez MD [address] [place] [address] [place] [address] Scheduled Procedures Name Priority Associated Diagnoses Date/Ti mt REPAIR INGUINAL HERNIA, 5 YR OR OLDER, REDUCIBLE (WRVU 7.96) Right inguinal hernia 02/01/2024 2:10 PM EST MODIFIER MESH,BARD FLAT MESH Right inguinal hernia 02/01/2024 2:10 PM EST documented as of this encounter Visit Diagnoses Not on filedocumented in this encounter Care Teams Roof Tile Layer Relationship Specialty Start Date End Date Tonia Hauser PA [address] [place] [address] PCP - General Family Medicine 02/11/23 03/27/23 documented as of this encounter
--- OUTSIDE RECORDS SUMMARY | 2023-12-26 11:41 | XMS_ITS | Encounter Summary ---
Author Organization [facility] Address [facility] [place] [address] Care Team Providers Care Carburetor Repairer Name Role Phone Tonia Hauser Primary Care Provider [phone] Encounter Details Date Type Department Care Team (Late st Contact Info) Description 03/28/2023 Nurse Triage Family Medicine at [address] [place] [phone] Clarissa Ramos RN Social History Tobacco Use Types Packs/Day Years Used Date Smoking Tobacco: Every Day Cigarettes 1.5 30 Smokeless Tobacco: Never Alcohol Use Standard Drinks/Week Comments Not Currently 0 (1 standard drink = 0.6 oz pur e alcohol) 03/15/23 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 Identified by name and date of . Pt asking for assistance with record transfer to [facility] where he has been accepted as a patient. Secure chat to Senior Secretaries to assist. documented in this encounter Plan of Treatment Upcoming Encounters Date Type Department Care Team (Latest Contact Info) Description 02/01/2024 2:10 PM EST Hospital Encounter [place] [phone] Franklin Ramirez MD [address] [place] [address] 02/01/2024 2:10 PM EST - 02/01/2024 4:50 PM EST Surgery [place] [address] Franklin Ramirez MD [address] [place] [address] [place] [address] REPAIR INGUINAL HERNIA, 5 YR OR OLDER, REDUCIBLE (WRVU 7.96) 03/05/2024 11:45 AM EST Office Visit General Surgery at [facility] [address] [place] [phone] Franklin Ramirez MD [address] [place] [address] [place] [address] Scheduled Procedures Name Priority Associated Diagnoses Date/Ti az REPAIR INGUINAL HERNIA, 5 YR OR OLDER, REDUCIBLE (WRVU 7.96) Right inguinal hernia 02/01/2024 2:10 PM EST MODIFIER MESH,BARD FLAT MESH Right inguinal hernia 02/01/2024 2:10 PM EST documented as of this encounter Visit Diagnoses Not on filedocumented in this encounter Care Teams Carburetor Repairer Relationship Specialty Start Date End Date Tonia Hauser PA [address] [place] [place] [address] PCP - General Family Medicine 04/13/23 documented as of this encounter
--- OUTSIDE RECORDS SUMMARY | 2023-12-26 11:41 | XMS_ITS | Encounter Summary ---
Author Organization [facility] Address [facility] [place] [address] Care Team Providers Care Chief Deputy Clerk/Bailiff Name Role Phone Tawnya Mcarthur Primary Care Provider [phone] Encounter Details Date Type Department Care Team (Late st Contact Info) Description 03/16/2023 Refill Family Medicine at [address] [place] [phone] Clarissa Ramos RN Social History Tobacco Use Types Packs/Day Years Used Date Smoking Tobacco: Every Day Cigarettes 1.5 30 Smokeless Tobacco: Never Alcohol Use Standard Drinks/Week Comments Not Currently 0 (1 standard drink = 0.6 oz pur e alcohol) 03/15/23 16 weeks sober [facility] Utilities Answer Date Recorded In the [...] Encounter - Clarissa Ramos RN - 03/16/2023 9:13 AM EST Copied from [facility] #[id number]. Topic: Generic Non-Symptom Based - Generic Call >> Mar 16, 2023 8:59 AM Le Ferraro wrote: Reason: Patient calling back PCP: TAWNYA MCARTHUR Reason for Call: Patient called stating he was trying to straighten out medications and see if he needs to take Thera M with iron supplements, see closed nurse triage yesterday 03/15/23. Patient statedhe just saw in nurse Kylah Melissa's message that she asked someone to call him, so he will wait for call.Please advise Call to pt. Identified by name and date of . Pt demonstrated understanding by teachback that he is to take the multivitamin daily and that prescription has been sent to [facility]. Pt states he needs refills on Folic Acid- listed in med list as Vitamin B-9 but patient states whathe has at home is B-12 And Refill on Lactulose which patient states he takes by mouth twice a day (titrated to 3-4 bowel movements per day. Pt states he has enough supply of furosemide, potassium, pantoprazole, and spironolactone. Will pend needed prescriptions for provider. documented in this encounter Plan of Treatment Upcoming Encounters Date Type Department Care Team (Latest Contact Info) Description 02/01/2024 2:10 PM EST Hospital Encounter [place] [phone] Franklin Ramirez MD [address] [place] [address] [place] [address] 02/01/2024 2:10 PM EST - 02/01/2024 4:50 PM EST Surgery [place] [phone] Franklin Ramirez MD [address] [place] [address] [place] [address] REPAIR INGUINAL HERNIA, 5 YR OR OLDER, REDUCIBLE (WRVU 7.96) 03/05/2024 11:45 AM EST Office Visit General Surgery at [address] [address] Franklin Ramirez MD [address] [place] [address] [place] [address] Scheduled Procedures Name Priority Associated Diagnoses Date/Ti ak REPAIR INGUINAL HERNIA, 5 YR OR OLDER, REDUCIBLE (WRVU 7.96) Right inguinal hernia 02/01/2024 2:10 PM EST MODIFIER MESH,BARD FLAT MESH Right inguinal hernia 02/01/2024 2:10 PM EST documented as of this encounter Visit Diagnoses Not on filedocumented in this encounter Care Teams Chief Deputy Clerk/Bailiff Relationship Specialty Start Date End Date Tawnya Mcarthur PA [address] [place] [address] PCP - General Family Medicine 02/11/23 03/27/23 documented as of this encounter
--- OUTSIDE RECORDS SUMMARY | 2023-12-26 11:41 | XMS_ITS | Encounter Summary ---
Author Organization [facility] Address [facility] [place] [address] Care Team Providers Care Pre Press Proofer Name Role Phone Unknown Primary Care Provider Unavailabl e Encounter Details Date Type Department Care Team (Late Contact Info) Description 02/04/2023 Telephone Internal Medicine at [address] [address] Isabel Pickard MD [facility] DR [place] [address] Social History Tobacco Use Types Packs/Day Years [...] Telephone Encounter - Isabel Pickard MD - 02/04/2023 2:30 PM EST 02/04/23 2:30 PM Called Shakir who does not have acute complaints. Advised that he should not call the clinic for non acute complaints given appt pending for Tuesday. Would appreciate triage from KARYNA doan for future calls. Got heme appt at [facility]. All questions answered at this time Isabel Pickard MD * Telephone Encounter - Isabel Pickard MD - 02/04/2023 2:29 PM EST Regarding: fluid draining Contact: ----- Message from Vesta Paulino RN sent at 02/04/2023 1:03 PM EST ----- Dear Dr. Pickard, Please see the patient's request. Not sure if you are able to give her a call. Sincerely, Vesta TRONCOSO ----- Message from [facility] to Isabel Pickard MD sent at 02/04/2023 12:18 PM ----- Isabel Can you give me a call today when you can. Thanks Shakir ----- Message ----- From:Shakir Sexton Sent:02/01/2023 6:16 PM EST To:Patient Medical Advice Request Message List Subject:fluid draining Thank you very much will see you Tuesday Shakir ----- Message ----- From:Isabel Pickard Sent:02/01/2023 6:06 PM EST To:Shakir Capo Subject:fluid draining My responses after the - below when I copied your text in quotes 1. I requested these results from [facility]. Thanks for letting me know how much they drained. I hope you are feeling better from this procedure. 2. Sounds like Dr. Shields would be willing to see you with doctors orders? On my review your abdomenfilled up in 2 weeks with ~ same amount of fluid from Jan 12. Every 2 weeks may be the timeline that we schedule for paracentesis (the fancy name for the procedure when they draw fluid off your abdomen). We can discuss this referral at your next visit. 3. As I said over the phone, I contacted [facility] primary care to make sure they are taking patients (they are) and asked them to send you new patient paperwork to fill out. The rest is up to you. I had our secretaries fax them my note, discharge summaries from [facility] [place] and recent results. You need to fill out the paperwork and schedule a new patient appointment with them. 4. Also they will need to hear from you about future appointments, they struggle with listening lol - who is they ? Hematology Feb.25 at 1 asked how long, she said 30 minutes consulting, can we do this on web or something? 4hrs driving for 30 minutes I would rather not do. - it is up to hematology whether they will allow a new appointment to be done over telehealth (not up to me). I would contact the clinic to make suretelehealth is ok for that appointment. If not I would try and schedule it when you are here with velvet MEZA. Gastro booked Apr 27 - sounds good. Financial slime for insurance is Tre Mas left him message last week and haven't heard back. State needs info and papers by Tuesday or we need to try again. - I sent this message to Tre soas him know you wanted to hear from him. Isabel Pickard MD ----- Message ----- From:Shakir Sexton Sent:02/01/2023 5:11 PM EST To:Patient Medical Advice Request Message List Subject:fluid draining Evening Isabel Just some notes for when we talk, nothing pressing. [facility] 1. They drained 2 liters off Tuesday 01/30, sent to lab. 2. I have a name they gave me that does this for them. Either on sight or at his own office. Michael or Giovanny Shields 3.Have you connected with PCP there yet? 4. Also they will need to hear from you about future appointments, they struggle with listening lol Hematology Feb.25 at 1 asked how long, she said 30 minutes consulting, can we do this on web or something? 4hrs driving for 30 minutes I would rather not do. Gastro booked Apr 27 Financial slime for insurance is Tre Chace left him message last week and haven't heard back. State needs info and papers by Tuesday or we need to try again. Thanks Shakir ----- Message ----- From:Shakir Sexton Sent:01/30/2023 7:59 PM EST To:Patient Medical Advice Request Message List Subject:fluid draining Isabel I am set with the draining I went to [facility] went well. Talk with you when you are in. Thanks Shakir ----- Message ----- From:Shakir Ellison Capo Sent:01/30/2023 5:42 AM EST To:Isabel Pickard Subject:fluid draining Good morning I am trying to find someone to help me go to my local hospital for a fluid draining today 01/30 at [facility] in [facility]. I contacted them yesterday and they can do so but they seem towant to start fresh. I explained to them I am patient with you folks and current status. All is on par thus far. no bleeding anywhere bowel movement and urinating as should be appetite good meds on par etc. I just need draining due to comfort I have an appointment with you folks to do so Feb 07. Just need draining prior. Tuesday night swelling in belly went from able to handle to rock solid causing extreme discomfort and pain. Thanks Shakir documented in this encounter Plan of Treatment Upcoming Encounters Date Type Department Care Team (Latest Contact Info) Description 02/01/2024 2:10 PM EST Hospital Encounter [place] [address] Franklin Ramirez MD [address] [place] [address] [place] [address] 02/01/2024 2:10 PM EST - 02/01/2024 4:50 PM EST Surgery [place] [phone] Franklin Ramirez MD [address] [address] [place] [address] REPAIR INGUINAL HERNIA, 5 YR OR OLDER, REDUCIBLE (WRVU 7.96) 03/05/2024 11:45 AM EST Office Visit General Surgery at [facility] [address] [place] [phone] Franklin Ramirez MD [address] [address] [place] [address] Scheduled Procedures Name Priority Associated Diagnoses Date/Ti me REPAIR INGUINAL HERNIA, 5 YR OR OLDER, REDUCIBLE (WRVU 7.96) Right inguinal hernia 02/01/2024 2:10 PM EST MODIFIER MESH,BARD FLAT MESH Right inguinal hernia 02/01/2024 2:10 PM EST documented as of this encounter Visit Diagnoses Not on filedocumented in this encounter Care Teams Pre Press Proofer Relationship Specialty Start Date End Date Unknown None PCP - General 12/21/13 02/10/23 documented as of this encounter
--- OUTSIDE RECORDS SUMMARY | 2023-12-26 11:41 | XMS_ITS | Encounter Summary ---
Author Organization [facility] Address [facility] [place] [address] Care Team Providers Care Improvement Manager Name Role Phone Unknown Primary Care Provider Unavailabl e Encounter Details Date Type Department Care Team (Late Contact Info) Description 01/25/2023 Orders [place] [phone] Isabel Pickard MD [facility] [address] INTERNAL MEDICINE [place], [place] [id number] Neutropenia, unspecified type; Alcoholic cirrhosis of liver [...] EST Hospital Encounter [place] [phone] Franklin Ramirez MD [address] [place] [address] [place] [address] 02/01/2024 2:10 PM EST - 02/01/2024 4:50 PM EST Surgery [place] [address] Franklin Ramirez MD [address] [place] [address] [place] [address] REPAIR INGUINAL HERNIA, 5 YR OR OLDER, REDUCIBLE (WRVU 7.96) 03/05/2024 11:45 AM EST Office Visit General Surgery at [address] [phone] Franklin Ramirez MD [address] [place] [address] [place] [address] Scheduled Procedures Name Priority Associated Diagnoses Date/Ti ca REPAIR INGUINAL HERNIA, 5 YR OR OLDER, REDUCIBLE (WRVU 7.96) Right inguinal hernia 02/01/2024 2:10 PM EST MODIFIER MESH,BARD FLAT MESH Right inguinal hernia 02/01/2024 2:10 PM EST documented as of this encounter Results * Copper, serum (01/25/2023 9:57 AM EST) [facility] Copper (JULY) 80 73 - 129 mcg/dL [facility] Comment: ADDITIONAL INFORMATION This test was developed and its performance characteristics determined by [facility] in a manner consistent with CLIA requirements. This test has not been cleared or approved by the U.S. Food and Drug Administration. Test Performed by: [facility] - [address] [address] Sorting Livestock Worker: Luis Vega M.D. Ph.D.; CLIA# [id number] Blood VENOUS BLOOD SPECIMEN / Unknown 01/25/2023 9:57 AM EST 01/25/2023 4:11 PM EST Narrative Resulting Agency Comment Spec In Lab Alyson Phelps MD LAB SEND OUT ORDERAB LES Performing Organization Address City/[facility] [address]/[facility] Co de Phone Number [facility] [place] [address] * CMV Antibody, IgM (01/25/2023 9:57 AM EST) CMV IgM Negative Negative [facility] Blood 01/25/2023 9:57 AM EST 01/26/2023 6:45 AM EST Narrative Resulting Agency Comment Spec In Lab Alyson Phelps MD IMMUNOLOGY ORDERABLE S Performing Organization Address [facility] [address]/[facility] Co de Phone Number [facility] [place] [address] * (ABNORMAL) Betty-Zuleta Virus Antibodies (01/25/2023 9:57 AM EST) EBV (VCA) IgG Ab Positive(A) Negative [facility] EBV (VCA) IgM Ab Positive(A) Negative [facility] EBNA Antibodies Positive(A) Negative [facility] EBV Interpretation Late primary infection or reactivation . [facility] Comment: In most populations, at [...] MD IMMUNOLOGY ORDERABLE S Performing Organization Address City/[facility] [address]/[facility] Co de Phone Number [facility] [place] [address] * Hepatitis B Core Antibody, Total (01/25/2023 9:57 AM EST) Hepatitis B Core Antibody Negative Negative [facility] Blood VENOUS BLOOD SPECIMEN / Unknown 01/25/2023 9:57 AM EST 01/25/2023 1:22 PM EST Narrative Resulting Agency Comment Spec In Lab Alyson Phelps MD CHEMISTRY ORDERABLES [facility] [place] [address] * (ABNORMAL) Hepatitis B Surface Antigen (01/25/2023 9:57 AM EST) Hepatitis B Surface Antigen Positive(A ) Negative [facility] Comment:Confirmed on 3 DAVINA Blood VENOUS BLOOD SPECIMEN / Unknown 01/25/2023 9:57 AM EST 01/25/2023 1:22 PM EST Narrative Resulting Agency Comment Spec In Lab Alyson Phelps MD CHEMISTRY ORDERABLES Performing Organization Address City/[facility] [address]/ZIP Co de Phone Number [facility] [place] [address] * Hepatitis C Antibody (01/25/2023 9:57 AM EST) Hepatitis C Antibody Negative Negative [facility] Blood 01/25/2023 9:57 AM EST 01/25/2023 1:22 PM EST Narrative Resulting Agency Comment Spec In Lab Alyson Phelps MD CHEMISTRY ORDERABLES Performing Organization Address City/[facility] [address]/ZIP Co de Phone Number [facility] [place] [address] * HIV Screen, 4th Generation ([facility]/CGP/APD/NLH) (01/25/2023 9:57 AM EST) HIV Ab/Ag Screen Negative Negative [facility] Comment: This 4th Generation HIV [...] HIV Comment Low Risk of HIV Infection [facility] Blood 01/25/2023 9:57 AM EST 01/25/2023 1:22 PM EST Narrative Resulting Agency Comment Spec In Lab Alyson Phelps MD CHEMISTRY ORDERABLES [facility] [place] [address] documented in this encounter Visit Diagnoses Diagnosis Neutropenia, unspecified type Alcoholic cirrhosis of liver with ascites Alcoholic cirrhosis of liver Right inguinal hernia Inguinal hernia without mention of obstruction or gangrene, unilateral or unspecified, (not specified as recurrent) documented in this encounter Care Teams Improvement Manager Relationship Specialty Start Date End Date Unknown None PCP - General 12/21/13 02/10/23 documented as of this encounter
--- OUTSIDE RECORDS SUMMARY | 2023-12-26 11:41 | XMS_ITS | Encounter Summary ---
Author Organization [facility]ly [facility] [place] [address] Care Team Providers Care Patent Lawyer Name Role Phone Unknown Primary Care Provider Unavailabl e Encounter Details Date Type Department Care Team (Late Contact Info) Description 01/25/2023 Telephone [place] [phone] Macey Smith LPN Social History Tobacco Use Types Packs/Day Years Used Date Smoking Tobacco: Every Day Cigarettes 1.5 30 Smokeless Tobacco: Never Alcohol Use Standard Drinks/Week Comments Never 0 (1 standard drink = 0.6 oz pur e alcohol) ON LICENSE OF [facility] Inpatient Questions Answer Date Recorded [...] Miscellaneous Notes * Telephone Encounter - Macey Smith LPN - 01/25/2023 2:08 PM EST Noemí Sharma Hematolgy Received call from Ediht at the [facility] on urgent line. Edith transferred this nurse to Noemí at the Hematology lab to report critical lab. Verified with Patient's name and of patient. Verbal readback was done. Critical Lab: Neutrophil Absolute Count 0.11 Contacted Provider: Isabel Parker MD Via: Secure Chat at 14:12 Provider Responded: 14:21 via. Secure Chat Outcome: Provider is currently on the phone with patient and actively managing situation. This lab was a repeat lab from yesterday. No further needs from this nurse. documented in this encounter Plan of Treatment Upcoming Encounters Date Type Department Care Team (Latest Contact Info) Description 02/01/2024 2:10 PM EST Hospital En[place] [address] Franklin Ramirez MD [address] [place] [address] 02/01/2024 2:10 PM EST - 02/01/2024 4:50 PM EST [place] [address] Franklin Ramirez MD [address] [place] [address] REPAIR INGUINAL HERNIA, 5 YR OR OLDER, REDUCIBLE (WRVU 7.96) 03/05/2024 11:45 AM EST Office Visit General Surgery at [address] [address] Franklin Ramirez MD [address] [place] [address] Scheduled Procedures Name Priority Associated Diagnoses Date/Ti nd REPAIR INGUINAL HERNIA, 5 YR OR OLDER, REDUCIBLE (WRVU 7.96) Right inguinal hernia 02/01/2024 2:10 PM EST MODIFIER MESH,BARD FLAT MESH Right inguinal hernia 02/01/2024 2:10 PM EST documented as of this encounter Visit Diagnoses Not on filedocumented in this encounter Care Teams Patent Lawyer Relationship Specialty Start Date End Date Unknown None PCP - General 12/21/13 02/10/23 documented as of this encounter
--- OUTSIDE RECORDS SUMMARY | 2023-12-26 11:41 | XMS_ITS | Encounter Summary ---
Author Organization [facility] Address [facility] [place] [address] Care Team Providers Care Wire Tester Name Role Phone Tonia Hauser Primary Care Provider [phone] Encounter Details Date Type Department Care Team (Latest Contact Info) Description 04/15/2023 Travel Social History Tobacco Use Types Packs/Day Years Used Date Smoking Tobacco: Every Day Cigarettes 1.5 30 Smokeless Tobacco: Never Alcohol Use Standard Drinks/Week Comments Not Currently 0 (1 standard drink = 0.6 oz pur e alcohol) 03/15/23 16 weeks sober [facility] Utilities Answer Date Recorded In the past 12 months has [employer], gas, oil, or water [employer] threatened to shut off services in your [...] PM EST Hospital Encounter [place] [address] Franklin Ramirez MD [address] [place] [address] [place] [address] 02/01/2024 2:10 PM EST - 02/01/2024 4:50 PM EST Surgery [place] [address] Franklin Ramirez MD [address] [place] [address] [place] [address] REPAIR INGUINAL HERNIA, 5 YR OR OLDER, REDUCIBLE (WRVU 7.96) 03/05/2024 11:45 AM EST Office Visit General Surgery at [facility] [address] [place] [address] [place] [address] Franklin Ramirez MD [address] [place] [address] [place] [address] Scheduled Procedures Name Priority Associated Diagnoses Date/Ti me REPAIR INGUINAL HERNIA, 5 YR OR OLDER, REDUCIBLE (WRVU 7.96) Right inguinal hernia 02/01/2024 2:10 PM EST MODIFIER MESH,BARD FLAT MESH Right inguinal hernia 02/01/2024 2:10 PM EST documented as of this encounter Visit Diagnoses Not on filedocumented in this encounter Care Teams Wire Tester Relationship Specialty Start Date End Date Tonia Hauser PA [address] [place] [address] PCP - General Family Medicine 04/13/23 documented as of this encounter
--- OUTSIDE RECORDS SUMMARY | 2023-12-26 11:41 | XMS_ITS | Encounter Summary ---
Author Organization [facility] Address [facility] [address] Care Team Providers Care Respooler Name Role Phone Unknown Primary Care Provider Unavailabl e Encounter Details Date Type Department Care Team (Late st Contact Info) Description 01/24/2023 Telephone Internal Medicine at [facility] [place] [phone] Isabel Pickard MD [facility] [place] [address] Social History Tobacco Use Types Packs/Day Years Used Date Smoking Tobacco: Every Day Cigarettes 1.5 30 Smokeless Tobacco: Never Alcohol Use Standard Drinks/Week Comments Never 0 (1 standard drink = 0.6 oz pur e alcohol) [facility] Inpatient Questions Answer Date Recorded Does [...] Encounter - Isabel Pickard MD - 01/24/2023 5:30 PM EST 01/24/23 5:30 PM Discussed persistent hypokalemia on spironolactone (w/ lasix) that even with transition 50mg > 100mg aldactone would still benefit from low dose potassium supplementation; 10meq daily prescribed to neptunera; will check K at our visit in 2 weeks. Isabel Pickard MD documented in this encounter Plan of Treatment Upcoming Encounters Date Type Department Care Team (Latest Contact Info) Description 02/01/2024 2:10 PM EST Hospital Encounter [place] [address] Franklin Ramirez MD [address] [place] [address] [place] [address] 02/01/2024 2:10 PM EST - 02/01/2024 4:50 PM EST Surgery [place] [address] Franklin Ramirez MD [address] [place] [address] REPAIR INGUINAL HERNIA, 5 YR OR OLDER, REDUCIBLE (WRVU 7.96) 03/05/2024 11:45 AM EST Office Visit General Surgery at [address] [address] Franklin Ramirez MD [address] [place] [address] Scheduled Procedures Name Priority Associated Diagnoses Date/Ti md REPAIR INGUINAL HERNIA, 5 YR OR OLDER, REDUCIBLE (WRVU 7.96) Right inguinal hernia 02/01/2024 2:10 PM EST MODIFIER MESH,BARD FLAT MESH Right inguinal hernia 02/01/2024 2:10 PM EST documented as of this encounter Visit Diagnoses Diagnosis Hypokalemia Hypopotassemia Right inguinal hernia Inguinal hernia without mention of obstruction or gangrene, unilateral or unspecified, (not specified as recurrent) documented in this encounter Care Teams Respooler Relationship Specialty Start Date End Date Unknown None PCP - General 12/21/13 02/10/23 documented as of this encounter
--- OUTSIDE RECORDS SUMMARY | 2023-12-26 11:41 | XMS_ITS | Encounter Summary ---
Author Organization [facility] Address [facility] [place] [address] Care Team Providers Care Packaging Sales Representative Name Role Phone Unknown Primary Care Provider Unavailabl e Encounter Details Date Type Department Care Team (Late st Contact Info) Description 01/25/2023 [address] [facility] [place] [phone] Isabel Pickard MD [facility] [place] [address] Social History Tobacco Use Types Packs/Day Years [...] Miscellaneous Notes * Telephone Encounter - Isabel iPckard MD - 01/25/2023 2:22 PM EST 01/25/23 2:22 PM Discussed repeat results; fever and return to ED precautions. He would like protonix sent to [facility]. Aware of needs to take twice a day and STOP omeprazole. He will fill out new patient paperwork from [place] [facility] at [facility]. He will schedule w Hematology when called. Isabel Pickard MD documented in this encounter Plan of Treatment Upcoming Encounters Date Type Department Care Team (Latest Contact Info) Description 02/01/2024 2:10 PM EST Hospital Encounter [place] [address] Franklin Ramirez MD [address] [place] [address] [place] [address] 02/01/2024 2:10 PM EST - 02/01/2024 4:50 PM EST Surgery [place] [address] Franklin Ramirez MD [address] [place] [address] REPAIR INGUINAL HERNIA, 5 YR OR OLDER, REDUCIBLE (WRVU 7.96) 03/05/2024 11:45 AM EST Office Visit General Surgery at [address] [address] Franklin Ramirez MD [address] [place] [address] Scheduled Procedures Name Priority Associated Diagnoses Date/Ti id REPAIR INGUINAL HERNIA, 5 YR OR OLDER, [...] recurrent) documented in this encounter Care Teams Packaging Sales Representative Relationship Specialty Start Date End Date Unknown None PCP - General 12/21/13 02/10/23 documented as of this encounter
--- OUTSIDE RECORDS SUMMARY | 2023-12-26 11:41 | XMS_ITS | Encounter Summary ---
Author Organization [facility] Address [facility] [place] [address] Care Team Providers Care Economic Research Assistant Name Role Phone Unavailable Primary Care Provider Unavailabl e Reason for Visit * Reason Onset Date Comments Medication Refill 04/11/2023 Encounter Details Date Type Department Care Team (Late st Contact Info) Description 04/11/2023 Refill [place] [address] Isabel Pickard MD [facility] [place] [address] Hypokalemia Social History Tobacco Use Types Packs/Day Years Used Date Smoking Tobacco: Every Day Cigarettes 1.5 30 Smokeless Tobacco: Never Alcohol Use Standard Drinks/Week Comments Not Currently 0 (1 standard drink = 0.6 oz pur e alcohol) 03/15/23 16 weeks sober [facility] Utilities Answer Date Recorded In the past 12 months has [facility] [employer], gas, oil, or water company threatened to [...] encounter Miscellaneous Notes * Telephone Encounter - Rosita Norwood MA - 04/12/2023 2:34 PM EST Prescription Renewal Request Name: Shakir Sexton : 1975 Prescription(s) Requested: Requested Prescriptions Pending Prescriptions Disp Refills potassium chloride ER (Klor-Con, K-Tab) 10 mEq ER tablet 90 tablet 3 Sig: Take 1 tablet by mouth daily. Date of Encounter last in This Dept (If need an appointment send to secretaries to schedule): 03/15/2023 Murtaza Next Encounter in This Dept: Visit date not found Date of Last Refill (for each medication): 01/24/2023 Medication category requirements (labs etc): Status of request: Pended Pharmacy change No Known Allergies Rosita Norwood MA 04/12/23 3:05 PM documented in this encounter Plan of Treatment Upcoming Encounters Date Type Department Care Team (Latest Contact Info) Description 02/01/2024 2:10 PM EST Hospital Encounter [place] [address] Franklin Ramirez MD [address] [place] [address] [place] [address] 02/01/2024 2:10 PM EST - 02/01/2024 4:50 PM EST Surgery [place] [address] Franklin Ramirez MD [address] [place] [address] REPAIR INGUINAL HERNIA, 5 YR OR OLDER, REDUCIBLE (WRVU 7.96) 03/05/2024 11:45 AM EST Office Visit General Surgery at [address] [address] Franklin Ramirez MD [address] [place] [address] [place] [address] Scheduled Procedures Name Priority Associated Diagnoses Date/Ti [...]
--- OUTSIDE RECORDS SUMMARY | 2023-12-26 11:42 | XMS_ITS | Encounter Summary ---
Author Organization [facility] Address [facility] [place] [address] Care Team Providers Care Lab Specialist Name Role Phone Unknown Primary Care Provider Unavailabl e Encounter Details Date Type Department Care Team (Late Contact Info) Description 01/12/2023 Orders [place] [phone] Monica Kuo MD [facility] [place] [address] Esophagitis Social History Tobacco Use Types Packs/Day Years Used Date Smoking Tobacco: Every Day Cigarettes 1.5 30 Smokeless Tobacco: Never Alcohol Use Standard Drinks/Week Comments Never 0 (1 standard drink = 0.6 oz pur e alcohol) [facility] Inpatient Questions Answer Date Recorded Does Anyone [...] PM EST Hospital Encounter [place] [address] Franklin Ramirez MD [address] [place] [address] [place] [address] 02/01/2024 2:10 PM EST - 02/01/2024 4:50 PM EST Surgery [place] [address] Franklin Ramirez MD [address] [place] [address] REPAIR INGUINAL HERNIA, 5 YR OR OLDER, REDUCIBLE (WRVU 7.96) 03/05/2024 11:45 AM EST Office Visit General Surgery at [address] [phone] Franklin Ramirez MD [address] [place] [address] Scheduled Procedures Name Priority Associated Diagnoses Date/Ti hi REPAIR INGUINAL HERNIA, 5 YR OR OLDER, REDUCIBLE (WRVU 7.96) Right inguinal hernia 02/01/2024 2:10 PM EST MODIFIER MESH,BARD FLAT MESH Right inguinal hernia 02/01/2024 2:10 PM EST documented as of this encounter Visit Diagnoses Diagnosis Esophagitis Esophagitis, unspecified Right inguinal hernia Inguinal hernia without mention of obstruction or gangrene, unilateral or unspecified, (not specified as recurrent) documented in this encounter Care Teams Lab Specialist Relationship Specialty Start Date End Date Unknown None PCP - General 12/21/13 02/10/23 documented as of this encounter
--- OUTSIDE RECORDS SUMMARY | 2023-12-26 11:42 | XMS_ITS | Encounter Summary ---
Author Organization [facility] [place] [address] Care Team Providers Care Electrical Cad Technician Name Role Phone Unknown Primary Care Provider Unavailabl e Encounter Details Date Type Department Care Team (Latest Contact Info) Description 01/13/2023 Travel Social History Tobacco Use Types Packs/Day [...] EST Hospital Encounter [place] [phone] Franklin Ramirez MD [address] [place] [address] [place] [address] 02/01/2024 2:10 PM EST - 02/01/2024 4:50 PM EST Surgery [place] [address] Franklin Ramirez MD [address] [place] [address] [place] [address] REPAIR INGUINAL HERNIA, 5 YR OR OLDER, REDUCIBLE (WRVU 7.96) 03/05/2024 11:45 AM EST Office Visit General Surgery at [facility] [address] [phone] Franklin Ramirez MD [address] [place] [address] [place] [address] Scheduled Procedures Name Priority Associated Diagnoses Date/Ti nh REPAIR INGUINAL HERNIA, 5 YR OR OLDER, REDUCIBLE (WRVU 7.96) Right inguinal hernia 02/01/2024 2:10 PM EST MODIFIER MESH,BARD FLAT MESH Right inguinal hernia 02/01/2024 2:10 PM EST documented as of this encounter Visit Diagnoses Not on filedocumented in this encounter Care Teams Electrical Cad Technician Relationship Specialty Start Date End Date Unknown None PCP - General 12/21/13 02/10/23 documented as of this encounter
--- OUTSIDE RECORDS SUMMARY | 2023-12-26 11:42 | XMS_ITS | Encounter Summary ---
Author Organization [facility] Address [facility] [place] [address] Care Team Providers Care Roller Cleaner Name Role Phone Unknown Primary Care Provider Unavailabl e Encounter Details Date Type Department Care Team (Late st Contact Info) Description 01/17/2023 Patient Outreach [place] [phone] Grady Carlson, RN Social History Tobacco Use Types Packs/Day Years Used Date Smoking Tobacco: Every Day Cigarettes 1.5 30 Smokeless Tobacco: Never Alcohol Use Standard Drinks/Week Comments Never 0 (1 standard drink = 0.6 oz pur e alcohol) [facility] Inpatient Questions Answer Date Recorded Does [...] encounter Miscellaneous Notes * Telephone Encounter - Grady Carlson RN - 01/17/2023 2:33 PM EST Post Hospital Discharge Call 01/17/2023 2:33 PM Transitional Care Date of Current Admission 01/11/[address] [facility] [place] [place] Date of most recent discharge to home 01/14/2023 Date of TCM phone call 01/17/2023 Person providing information: Shakir Discharge Diagnosis: Cirrhosis and GIB Health Status: (Comprehension of reason for hospitalization) Pt reports he is doing well since he's been home. He is in the midst of making hotel reservation inpreparation for [facility] appt on 01/24. Denies coffee-ground emesis and melena. Appetite good. No N/V. Has not heard from GI yet regarding referral. Provided clinic number for patient to contact and schedule. Reviewed medications. No discrepancies, except that patient also takes a Vitamin B1 which was prescribed to him from [facility]. Ciprofloxacin completed. Medication Reconciliation: New Medication started: Yes Folic Acid MVI w/ minerals Discontinued Medication: No Adherence Issues: (financial/transportation): Clarify Appointments: Assure that patient understands reason for followup appointments and contact information PCP: Yes, 01/24/2023 Specialist: Yes, GI TBD Diagnostic (lab/radiology) No Are coordination of discharge services (home care/DME/meals on wheels, example) needed? No; if yes assure that patient understands reason for services and contact information and fill outinformation below Name of agency Type of service Action Plan - assure patient understands action plan What to do if emergent symptoms occur discussed Yes What to do if urgent symptoms occur discussed Yes Plan ahead for your office visit by bringing in your written questions. Bring list of all medications or bring in actual medications to each office visit. documented in this encounter Plan of Treatment Upcoming Encounters Date Type Department Care Team (Latest Contact Info) Description 02/01/2024 2:10 PM EST Hospital Encounter [place] [address] Franklin Ramirez MD [address] [place] [address] [place] [address] 02/01/2024 2:10 PM EST - 02/01/2024 4:50 PM EST Surgery [place] [address] Franklin Ramirez MD [address] [place] [address] [place] [address] REPAIR INGUINAL HERNIA, 5 YR OR OLDER, REDUCIBLE (WRVU 7.96) 03/05/2024 11:45 AM EST Office Visit General Surgery at [facility] [address] [phone] Franklin Ramirez MD [address] [place] [address] [place] [address] Scheduled Procedures Name Priority Associated Diagnoses Date/Ti dc REPAIR INGUINAL HERNIA, 5 YR OR OLDER, REDUCIBLE (WRVU 7.96) Right inguinal hernia 02/01/2024 2:10 PM EST MODIFIER MESH,BARD FLAT MESH Right inguinal hernia 02/01/2024 2:10 PM EST documented as of this encounter Visit Diagnoses Not on filedocumented in this encounter Care Teams Roller Cleaner Relationship Specialty Start Date End Date Unknown None PCP - General 12/21/13 02/10/23 documented as of this encounter
--- OUTSIDE RECORDS SUMMARY | 2023-12-26 11:42 | XMS_ITS | Encounter Summary ---
[place] [address] Care Team Providers Care Control Systems Designer Name Role Phone Unknown Primary Care Provider Unavailabl e Reason for Visit * Auth/Cert (Routine) Specialty Diagnoses / Procedures Referred By Renata t Referred To Contact Diagnoses Hypovolemic shock Hyperbilirubinemia Jaundice Acute GI bleeding Shock bowel Procedures ER Curtis Piper MD [facility] [place] [address] [facility] Referral ID Status Reason Start Date Expiration Date Visits Re quested Visits Authorized [id number] 1 1 Encounter Details Date Type Department Care Team (Late st Contact Info) Description 01/11/2023 5:28 PM EST Anesthesia [place] [address] Brandie Cabezas MD [facility] DR [place] [address] Tre Nolen MD [facility] DR [place] [address] Anesthesia Record Procedure Summary Procedure Name Responsible Anesthesiologist Anesthesia Start Time Anesthesia Stop Time EGD, UPPER GI ENDOSCOPY (WRVU 2.09) (Trunk) Brandie Cabezas MD 01/11/23 1728 01/11/23 1825 Events Date Time Event Comment 01/11/2023 1725 1728 AN Verify 1728 Start 1730 An Start Data 1736 An Induction 1737 An Intubation 1738 Anesthesia Ready 1745 Procedure Start 1755 Quick Note BP cuff moved t o R leg 180 Extubation/LMA Out 1807 Quick Note Pt awake and ta lking. Awaiting disposition. 1813 Quick Note Blood finished infusing 1816 an stop data 182 Recovery or ICU Handoff Rosalie ent care was transferred to the destination unit staff after review of the patient's medical history, current anesthetic/surgical status and plan, according to the Provider Handoff Checklist. 1825 Stop Meds Name Total octreotide (SandoSTATIN) (5 mcg/mL) in s odium chloride 0.9% 100 mL infusion 0 mcg NORepinephrine 20 mcg Propofol 200 mg Succinylcholine 100 mg Rocuronium 30 mg PHENYLephrine INF 400 mcg Sugammadex 200 mg Lactated Ringers 600 mL * Agents Name O2 Air N2O Sevoflurane (et) O2 Auxiliary Flowmeter 1 * Blood No blood administrations on file. Lines, Drains, and Airways Type Details Placement Removal PIV 01/11/23; 1336; htzi-[id number]-tjipmu catheter system; 18 gauge, 1 in length; median cubital vein (antecubital fossa), right; Anatomical Landmarks; US Not Used; KARYNA Perkins; distraction; 0; 01/11/23; 202101/11/23 1336 by Maddie Buckley RN 01/11/23 202 by Luiz Coleman RN PIV 01/11/23; 1503; [id number] catheter system; 18 gauge, 1 in length; median cubital vein (antecubital fossa), left; Anatomical Landmarks; US Not Used; KARYNA Perkins; 01/13/23; 1533 01/11/23 1503 by Maddie Buckley RN 01/13/23 1533 by Anabella Ellis RN ETT Mask Ventilation: No t Attempted (0); ETT Type: Cuffed, Oral; ETT Size: 7.5 mm; Indirect: Video; Notes: Asleep, Pre-O2, Stylette; Attempts: 1; Laryngoscopy Grade: 1; ETT Placement Verified By: Capnometry, Auscultation; Secured at Teeth: 22 cm; Inserted by: MD Esperanza; Removal Date: 01/11/23; Removal Time: 180301/11/231736 by Magi Deleon MD 01/11/23 1804 by Magi Deleon MD PIV 01/11/23; 1756; 16 g auge; metacarpal vein (top of hand), left; MD Gerald; 01/13/23; 1533 01/11/23 1756 by Magi Deleon MD 01/13/23 1533 by Anabella Ellis RN documented in this encounter Social History Tobacco Use Types Packs/Day Years Used Date Smoking Tobacco: Never Assessed DH IPV Inpatient Questions Answer Date Recorded [...] OR Notes * Anesthesia Postprocedure Evaluation - Magi Deleon MD - 01/11/2023 6:34 PM EST Department of Anesthesiology Post-procedure Note Patient: Shakir Argueta Procedure Summary Date: 01/11/23 Room / Location: [facility] / [facility] Anesthesia Start: 1727 Anesthesia Stop: 1824 Procedure: EGD, UPPER GI ENDOSCOPY (WRVU 2.09) (Trunk) Diagnosis: (coffee ground emesis) Surgeons: Rehan Matta MD Responsible Provider: Brandie Cabezas MD Anesthesia Type: general ASA Status: 4 All Anesthesia Providers: Anesthesiologist: Brandie Cabezas MD Sheeter Machine Operator: Arthur Mata MD; Magi Deleon MD Vitals Value Taken Time BP Temp Pulse Resp SpO2 Pain Level Patient Location: ED Level of Consciousness: Awake and Alert Pain Management: Satisfactory Analgesia PONV: None Cardiovascular Status: Hemodynamically Stable Respiratory Status: Room Air Postoperative Fluid Status: Intravascular EUvolemia Possible Anesthetic Complications: NONE apparent at time of evaluation Final Primary Anesthesia Type: General (The anesthetic type performed was the same as planned.) Comments: Awake, alert, and recovering comfortably in the ED. Sign-out provided to ED RN. No immediate anesthetic complications. Magi Deleon MD * Anesthesia Preprocedure Evaluation - Brandie Cabezas MD - 01/11/2023 5:00 PM EST Images from the original note were not included. Pre-Anesthesia Evaluation for: Shakir Argueta a 48 y.o. male. Procedure(s): EGD, UPPER GI ENDOSCOPY (WRVU 2.09) Patient Active Problem List Diagnosis Date Noted Alcoholic cirrhosis of liver with ascites 01/11/2023 No past medical history on file. No past surgical history on file. Social History Tobacco Use Smoking status: Not on file Smokeless tobacco: Not on file Substance Use Topics Alcohol use: Not on file Social History Substance and Sexual Activity Drug Use Not on file No Known Allergies Medications: MAR and/or home medications have been reviewed. Physical Exam: Preprocedure Vitals Current as of 01/11/23 1700 BP: 106/67 Pulse: 120 Resp: 23 SpO2: 99 Temp: 37 ??C (98.6 ??F) Height: Weight: 72.6 kg (160 lb) (01/11/23) BMI: IBW: Last edited 01/11/23 1645 by LA Currently displaying vitals information from multiple entries within 180 minutes of most recent vitals. Airway Assessment: Mallampati: II TM distance: >3 FB Neck ROM: full Cardiovascular Assessment: Rate: abnormal PE comment: Sinus Tachy Pulmonary Assessment: pulmonary exam normal Dental Assessment: Comment: Poor dentition Misc Assessment: Patient is wearing No contact(s). IV access: Peripheral line Last Filed Perioperative Cognitive Screening None Anesthesia Plan: ASA 4 general, with a(n) intravenous induction 48 yo 73kg M with a history of chronic alcoholism, alcoholic cirrhosis with ascites, esophageal varices (history of banding?), presented to ED with complaints of nausea, vomiting, diarrhea coffee ground emesis suspicious for GI bleed presenting for EGD. Hgb 6.1 drop from 7.5 this morning. Sinus tachy 120- 130s bp 99-108/80s. Plan is GA/ETT/RSI with standard monitors. 2 PIVs (18G and 20G in bilateral Acs). +/- Arterial line. The patient was informed of the risks, benefits and alternatives of anesthesia. These risks included, but were not limited to, post-operative nausea and/or vomiting, pain, sore throat, dental/lip trauma, and other rare but serious complications such as major organ damage, awareness, severe allergicreactions, position-related nerve injuries, corneal abrasion/blindness and need blood transfusions.All questions were sought and answered. Consent was signed and placed in chart. Region - Other Informed Consent: Anesthetic plan and risks discussed with patient and spouse. Use of blood products discussed with patient and spouse who consented to blood products. Plan discussed with resident. Anesthesia Screening documented in this encounter Plan of Treatment Upcoming Encounters Date Type Department Care Team (Latest Contact Info) Description 02/01/2024 2:10 PM EST Hospital Encounter [place] [address] Franklin Ramirez MD [address] [place] [address] [place] [address] 02/01/2024 2:10 PM EST - 02/01/2024 4:50 PM EST Surgery [place] [address] Franklin Ramirez MD [address] [place] [address] [place] [address] REPAIR INGUINAL HERNIA, 5 YR OR OLDER, REDUCIBLE (WRVU 7.96) 03/05/2024 11:45 AM EST Office Visit General Surgery at [address] [id number] Franklin Ramirez MD [address] [place] [address] [place] [address] Scheduled Procedures Name Priority Associated Diagnoses Date/Ti [...] Date Dose Rate Site lactated ringers infusion Intravenous, CONTINUOUS PRN, Starting on Tue01/11/23 at 1733, Until Tue01/11/23 at 1834, Anesthesia Intra-op New Bag 01/11/2023 5:33 PM EST NORepinephrine (Levophed) injection Intravenous, PRN, Starting on Tue01/11/23 at 1736, Until Tue01/11/23 at 1834, Anesthesia Intra-op, Routine Given 01/11/2023 5:46 PM EST 4 mcg Given 01/11/2023 5:36 PM EST 16 mcg PHENYLephrine (Tomy-Synephrine) (80 mcg/mL) in sodium chloride 0.9% 250 mL infusion Intravenous, CONTINUOUS PRN, Starting on Tue01/11/23 at 1743, Until Tue01/11/23 at 1834, Anesthesia Intra-op, Routine New Bag 01/11/2023 5:43 PM EST 40 mcg/min 30 mL/hr propofoL (Diprivan) 10 mg/mL bolus injection (Anesthesia) Intravenous, PRN, Starting on Tue01/11/23 at 1736, Until Tue01/11/23 at 1834, Anesthesia Intra-op Given 01/11/2023 5:59 PM EST 50 mg Given 01/11/2023 5:36 PM EST 150 mg rocuronium (Zemuron) (10 mg/mL) multi-dose injection Intravenous, PRN, Starting on Tue01/11/23 at 1742, Until Tue01/11/23 at 1834, Anesthesia Intra-op, Routine Given 01/11/2023 5:53 PM EST 20 mg Given 01/11/2023 5:42 PM EST 10 mg succinylcholine (Anectine;Quelicin) (20 mg/mL) injection Intravenous, PRN, Starting on Tue01/11/23 at 1737, Until Tue01/11/23 at 1834, Anesthesia Intra-op, Routine Given 01/11/2023 5:36 PM EST 100 mg sugammadex (Bridion) 100 mg/mL injection Intravenous, PRN, Starting on Tue01/11/23 at 1800, Until Tue01/11/23 at 1834, Anesthesia Intra-op, Routine Given 01/11/2023 6:00 PM EST 200 mg documented in this encounter Care Teams Control Systems Designer Relationship Specialty Start Date End Date Unknown None PCP - General 12/21/13 02/10/23 documented as of this encounter
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
--- OUTSIDE RECORDS SUMMARY | 2023-12-26 11:42 | XMS_ITS | Encounter Summary ---
Author Organization [facility] Address [facility] [place] [address] Care Team Providers Care Duplicating Machine Operator Name Role Phone Unknown Primary Care Provider Unavailabl e Encounter Details Date Type Department Care Team (Late Contact Info) Description 01/17/2023 Telephone Gastroenterology at [facility] [place] [phone] Kelly Brown Social History Tobacco Use Types Packs/Day Years [...] encounter Miscellaneous Notes * Telephone Encounter - Kelly Brown - 01/17/2023 4:56 PM EST Patient called to schedule COLO & EGD There are separate orders for each (?) He needs EGD to be 8 weeks after 01-11-23 procedure to check for healing He is going to call back in a couple of weeks to have both booked together in march documented in this encounter Plan of Treatment Upcoming Encounters Date Type Department Care Team (Latest Contact Info) Description 02/01/2024 2:10 PM EST Hospital Encounter [place] [address] Franklin Ramirez MD [address] [place] [id number] 02/01/2024 2:10 PM EST - 02/01/2024 4:50 PM EST Surgery [place] [phone] Franklin Ramirez MD [address] [place] [id number] REPAIR INGUINAL HERNIA, 5 YR OR OLDER, REDUCIBLE (WRVU 7.96) 03/05/2024 11:45 AM EST Office Visit General Surgery at [facility] [address] [phone] Franklin Ramirez MD [address] [place] [id number] Scheduled Procedures Name Priority Associated Diagnoses Date/Ti me REPAIR INGUINAL HERNIA, 5 YR OR OLDER, REDUCIBLE (WRVU 7.96) Right inguinal hernia 02/01/2024 2:10 PM EST MODIFIER MESH,BARD FLAT MESH Right inguinal hernia 02/01/2024 2:10 PM EST documented as of this encounter Visit Diagnoses Not on filedocumented in this encounter Care Teams Duplicating Machine Operator Relationship Specialty Start Date End Date Unknown None PCP - General 12/21/13 02/10/23 documented as of this encounter
--- OUTSIDE RECORDS SUMMARY | 2023-12-26 11:42 | XMS_ITS | Encounter Summary ---
Author [facility] [place] [address] Care Team Providers Care Rag Boiler Name Role Phone Unknown Primary Care Provider Unavailabl e Encounter Details Date Type Department Care Team (Latest Contact Info) Description 01/24/2023 Travel Social History Tobacco Use Types Packs/Day [...] PM EST Hospital Encounter [place] [phone] Franklin Ramirez MD [address] [place] [address] [place] [address] 02/01/2024 2:10 PM EST - 02/01/2024 4:50 PM EST Surgery [place] [address] Franklin Ramirez MD [address] [place] [address] [place] [address] REPAIR INGUINAL HERNIA, 5 YR OR OLDER, REDUCIBLE (WRVU 7.96) 03/05/2024 11:45 AM EST Office Visit General Surgery at [facility] [address] [phone] Franklin Ramirez MD [address] [place] [address] [place] [address] Scheduled Procedures Name Priority Associated Diagnoses Date/Ti wv REPAIR INGUINAL HERNIA, 5 YR OR OLDER, REDUCIBLE (WRVU 7.96) Right inguinal hernia 02/01/2024 2:10 PM EST MODIFIER MESH,BARD FLAT MESH Right inguinal hernia 02/01/2024 2:10 PM EST documented as of this encounter Visit Diagnoses Not on filedocumented in this encounter Care Teams Rag Boiler Relationship Specialty Start Date End Date Unknown None PCP - General 12/21/13 02/10/23 documented as of this encounter
--- OUTSIDE RECORDS SUMMARY | 2023-12-26 11:42 | XMS_ITS | Encounter Summary ---
Author Organization [facility] Address [facility] [place] [address] Care Team Providers Care Angular Js Developer Name Role Phone Unknown Primary Care Provider Unavailabl e Reason for Referral * Consultation (Routine) - Closed Specialty Diagnoses / Procedures Referred By Contquintin t Referred To Contact Gastroenterology Diagnoses Alcoholic cirrhosis of liver with ascites liver - cirrhosis, appt within 1-2 months. Monica Kuo MD [facility] [place] [address] [facility] [place] [place] [address] [address] Referral ID Status Reason Start Date Expiration Date V isits Requested Visits Authorized [id number] Closed Consult, Test & Treat 01/13/2023 01/13/2024 1 1 Encounter Details Date Type Department Care Team (Late st Contact Info) Description 01/13/2023 Orders [place] [phone] Monica Kuo MD [facility] [place] [address] Hematochezia; Screening for colon cancer; Alcoholic cirrhosis of liver with ascites Social History Tobacco Use Types Packs/Day Years Used Date Smoking Tobacco: Every Day Cigarettes 1.5 30 Smokeless Tobacco: Never Alcohol Use Standard Drinks/Week Comments Never 0 (1 standard drink = 0.6 oz pur e alcohol) [facility] Inpatient Questions Answer Date Recorded Does Anyone [...] PM EST Hospital Encounter [place] [address] Franklin Ramirez MD [address] [place] [address] [place] [address] 02/01/2024 2:10 PM EST - 02/01/2024 4:50 PM EST Surgery [place] [address] Franklin Ramirez MD [address] [place] [address] [place] [address] REPAIR INGUINAL HERNIA, 5 YR OR OLDER, REDUCIBLE (WRVU 7.96) 03/05/2024 11:45 AM EST Office Visit General Surgery at [address] [phone] Franklin Ramirez MD [address] [place] [address] [place] [address] Scheduled Procedures Name Priority Associated Diagnoses Date/Ti nm REPAIR INGUINAL HERNIA, 5 YR OR OLDER, REDUCIBLE (WRVU 7.96) Right inguinal hernia 02/01/2024 2:10 PM EST MODIFIER MESH,BARD FLAT MESH Right inguinal hernia 02/01/2024 2:10 PM EST Scheduled Referrals Name Type Priority Associated Diagnoses Order Schedule Referral to Gastroenterology Outpatient Referral Routine Alcoholic cirrhosis of liver with ascites Ordered: 01/13/2023 documented as of this encounter Visit Diagnoses Diagnosis Hematochezia Blood in stool Screening for colon cancer Special screening for malignant neoplasms, colon Alcoholic cirrhosis of liver with ascites Alcoholic cirrhosis of liver Right inguinal hernia Inguinal hernia without mention of obstruction or gangrene, unilateral or unspecified, (not specified as recurrent) documented in this encounter Care Teams Angular Js Developer Relationship Specialty Start Date End Date Unknown None PCP - General 12/21/13 02/10/23 documented as of this encounter
--- OUTSIDE RECORDS SUMMARY | 2023-12-26 11:42 | XMS_ITS | Encounter Summary ---
Author Organization [facility] [place] [address] Care Team Providers Care Soaking Pits Supervisor Name Role Phone Unknown Primary Care Provider Unavailabl e Encounter Details Date Type Department Care Team (Latest Contact Info) Description 01/24/2023 4:10 PM EST Laboratory Appointment Lab [address] [place] [address] Alcoholic cirrhosis of liver with ascites; Hyponatremia; Normocytic anemia Social History Tobacco Use Types Packs/Day Years [...] PM EST Hospital Encounter [place] [phone] Franklin Ramirez MD [address] [place] [address] [place] [address] 02/01/2024 2:10 PM EST - 02/01/2024 4:50 PM EST Surgery [place] [address] Franklin Ramirez MD [address] [place] [address] [place] [address] REPAIR INGUINAL HERNIA, 5 YR OR OLDER, REDUCIBLE (WRVU 7.96) 03/05/2024 11:45 AM EST Office Visit General Surgery at [facility] [address] [place] [phone] Franklin Ramirez MD [address] [place] [address] [place] [address] Scheduled Procedures Name Priority Associated Diagnoses Date/Ti ne REPAIR INGUINAL HERNIA, 5 YR OR OLDER, REDUCIBLE (WRVU 7.96) Right inguinal hernia 02/01/2024 2:10 PM EST MODIFIER MESH,BARD FLAT MESH Right inguinal hernia 02/01/2024 2:10 PM EST documented as of this encounter Procedures Procedure Name Priority Date/Time Associated Diagnosis Comments SCAN, PERIPHERAL BLOOD Routine 01/24/2023 4:16 PM EST HEMOGRAM Routine 01/24/2023 4:16 PM EST Normocytic anemia DIFFERENTIAL, AUTOMATED Routine 01/24/2023 4:16 PM EST Normocytic anemia CBC (WITH DIFF) Routine 01/24/2023 4:16 PM EST Normocytic anemia HEPATIC FUNCTION PANEL Routine 01/24/2023 4:16 PM EST Alcoholic cirrhosis of liver with ascites BASIC METABOLIC PANEL Routine 01/24/2023 4:16 PM EST Hyponatremia documented in this encounter Results * Scan, Peripheral Blood (01/24/2023 4:16 PM EST) Plat estimate Normal [facility] RBC Morphology Abnormal [facility] Macrocyte 1-5 /HPF [facility] [place] Cells gtr than 10 /HPF [facility] Acanthocytes 1-5 /HPF [facility] Blood 01/24/2023 4:16 PM EST 01/24/2023 4:36 PM EST Narrative Resulting Agency Comment Spec In Lab Isabel Pickard MD HEMATOLOGY ORDERABLE S [facility] [place] [address] * (ABNORMAL) Differential, Automated (01/24/2023 4:16 PM EST) Neutrophil % 3.2 % [facility] Neutrophil Absolute 0.09(Crit ical) 1.70 - 6.10 x10(3)/mc L [facility] Comment: This result has been called to JOSE M HERNANDEZ by Leonardo Martino on 01 24 2023 at 1737, and has been read back. Lymph % 39.1 % [facility] Lymphocytes Abs 1.1 0.9 - 3.2 x10(3)/mc L [facility] Monocyte % 52.8 % [facility] Monocyte Abs 1.5(H) 0.3 - 0.9 x10(3)/mc L [facility] Eos % 3.5 % [facility] Eosinophils Abs 0.1 0.0 - 0.4 x10(3)/mc L [facility] Basophil % 1.4 % [facility] Baso Absolute 0.0 0.0 - 0.1 x10(3)/mc L [facility] Immature Gran % 0.00 % [facility] Comment: Immature granulocytes(IG's)percentage and absolute count will include metamyelocytes, myelocytes, and promyelocytes. Blood smears from CBCs yielding IG's will be scanned manually for concordance. If this scan disagrees with the automated IG or if promyelocytes are noted, a manual differential will be performed. Immature Gran Absolute 0.00 0.00 - 0.04 x10(3)/mc L [facility] Blood 01/24/2023 4:16 PM EST 01/24/2023 4:36 PM EST Narrative Resulting Agency Comment Spec In Lab Isabel Pickard MD HEMATOLOGY ORDERABLE S [facility] [place] [address] * (ABNORMAL) Hemogram (01/24/2023 4:16 PM EST) White Blood Cell 2.8(L) 4.0 - 9.5 x10(3)/mc L [facility] Red Blood Cell 3.21(L) 4.58 - 5.54 x10(6)/mc L [facility] Hemoglobin 10.1(L) 13.7 - 16.5 g/dL [facility] Hematocrit 29.7(L) 40.5 - 48.5 % [facility] Mean Cell Volume 92.5 82.9 - 93.1 fL [facility] Mean Cell Hemoglobin 31.5 27.5 - 32.1 pg [facility] Mean Cell Hemoglobin Concentration 34.0 32.0 - 35.7 g/dL [facility] Platelet 190 145 - 357 x10(3)/mc L [facility] RDW Standard Deviation 54.0(H) 36.0 - 45.0 fL [facility] RDW coefficient of variation 16.3(H) 11.4 - 13.8 % [facility] Mean Platelet Volume 8.9 7.6 - 12.9 fL [facility] NRBC% auto 0.0 % [facility] NRBC Absolute 0.000 0.000 - 0.000 x10(3)/mc L [facility] Blood 01/24/2023 4:16 PM EST 01/24/2023 4:36 PM EST Narrative Resulting Agency Comment Spec In Lab Isabel Pickard MD HEMATOLOGY ORDERABLE S [facility] [place] [address] * (ABNORMAL) Basic Metabolic Panel (non-fasting) (01/24/2023 4:16 PM EST) Glucose 122 65 - 199 mg/dL [facility] Comment:Diabetes: >=200 mg/d L plus symptoms Blood Urea Nitrogen 8(L) 10 - 20 mg/dL [facility] Creatinine 0.58(L) 0.80 - 1.50 mg/dL [facility] Sodium 127(L) 135 - 145 mmol/L [facility] Potassium 3.1(L) 3.5 - 5.0 mmol/L [facility] Comment: Please note: ??Patients with WBC >100,000 may have falsely elevated Potassium levels. ??For accurate Potassium quantification in these patients send serum separator tube (gold top) for subsequent determinations. ??Contact the Clinical Chemistry Laboratory if there are any questions. Chloride 91(L) 98 - 107 mmol/L [facility] Carbon Dioxide 24 22 - 31 mmol/L [facility] Anion Gap 12 5 - 15 mmol/L [facility] Calcium 8.3(L) 8.5 - 10.5 mg/dL [facility] Est Glomerular Filtration Rate 120 >=60 mL/min/1. 73 m?? [facility] Comment: This patient's estimated GFR was [...] In Lab Alyson Phelps MD CHEMISTRY ORDERABLES [facility] [place] [address] * (ABNORMAL) Hepatic Function Panel (01/24/2023 4:16 PM EST) Protein, Total 5.9(L) 6.1 - 8.0 g/dL [facility] Albumin 3.4 3.2 - 5.2 g/dL [facility] Aspartate Aminotransferase 34 0 - 39 unit/L [facility] Alanine Aminotransferase 17 0 - 55 unit/L [facility] Alkaline Phosphatase 104 40 - 130 unit/L [facility] Bilirubin, Total 5.2(H) 0.2 - 1.3 mg/dL [facility] Bilirubin, Direct 2.1(H) 0.0 - 0.3 mg/dL [facility] Blood 01/24/2023 4:16 PM EST 01/24/2023 4:36 PM EST Narrative Resulting Agency Comment Spec In Lab Alyson Phelps MD CHEMISTRY ORDERABLES Performing Organization Address City/State/[facility] Co de Phone Number [facility] [place] [address] documented in this encounter Visit Diagnoses Diagnosis Alcoholic cirrhosis of liver with ascites Alcoholic cirrhosis of liver Hyponatremia Hyposmolality and/or hyponatremia Normocytic anemia Anemia, unspecified Right inguinal hernia Inguinal hernia without mention of obstruction or gangrene, unilateral or unspecified, (not specified as recurrent) documented in this encounter Care Teams Soaking Pits Supervisor Relationship Specialty Start Date End Date Unknown None PCP - General 12/21/13 02/10/23 documented as of this encounter
--- OUTSIDE RECORDS SUMMARY | 2023-12-26 11:42 | XMS_ITS | Encounter Summary ---
[place] [address] Care Team Providers Care Brake Lining Curer Name Role Phone Unknown Primary Care Provider Unavailabl e Reason for Referral * Consultation (Urgent) - Duplicate Referral Specialty Diagnoses / Procedures Referred By Renata santos Referred To Contact Gastroenterology Diagnoses Acute GI bleeding Alcoholic cirrhosis of liver with ascites urgent liver slot - cirrhosis of liver Franklin Hobbs MD [facility] [place] [address] [facility] [address] [place] [address] Referral ID Status Reason Start Date Expiration Date Visits Requested Visits Authorized [id number] Duplicate Referral Specialty Service Requested 01/13/2023 01/13/2024 1 1 Reason for Visit * Reason Comments Dehydration * Auth/Cert (Routine) Specialty Diagnoses / Procedures Referred By Renata t Referred To Contact Diagnoses Hypovolemic shock Hyperbilirubinemia Jaundice Acute GI bleeding Shock bowel Procedures ER Curtis Piper MD [facility] [place] [address] [facility] Referral ID Status Reason Start Date Expiration Date Visits Re quested Visits Authorized [id number] 1 1 Encounter Details Date Type Department Care Team (Latest Contact Info) Description 01/11/2023 1:09 PM EST - 01/13/2023 4:00 PM EST Hospital Encounter Intensive Care Unit at [place] [phone] Curtis Weinstein MD [facility] [place] [address] [place], [facility] [place] [address] Franklin Hobbs MD [facility] [place] [address] Acute GI bleeding; Shock bowel; Jaundice; Hyperbilirubinemia; Hypovolemic shock; Alcoholic cirrhosis of liver with ascites Discharge Disposition: Against Medical Advice Social History Tobacco Use Types Packs/Day Years Used Date Smoking Tobacco: Every Day Cigarettes 1.5 30 Smokeless Tobacco: Never Tobacco Cessation:Ready to Q uit: No; Counseling Given: Yes Alcohol Use Standard Drinks/Week Comments Never 0 [...] Sign Reading Time Taken Comments Blood Pressure 100/59 01/13/2023 12:00 PM EST Pulse 84 01/13/2023 8:00 AM EST Temperature 36.7 ??C (98.1 ??F) 01/13/2023 1 2:00 PM EST Respiratory Rate 20 01/13/2023 5:00 AM EST Oxygen Saturation 97% 01/13/2023 12: 00 PM EST Inhaled Oxygen Concentration - - Weight 73.9 kg (162 lb 14.7 oz) 01/11/2023 8:00 PM EST Height 180.3 cm (5' 11) 01/11/2023 8:00 PM EST Body Mass Index 22.72 01/11/2023 8:00 PM EST documented in this encounter Discharge Summaries * Franklin Hobbs MD - 01/13/2023 4:00 PM EST Discharge Summary Patient Name: Monisha Argueta Demographics: 48 y.o.male Admit Date: 01/11/2023 Discharge Date: 01/14/2023 Attending Physician: Dr. Franklin Hobbs Discharge Physician: Dr. Franklin Hobbs ID: Monisha Argueta is a 48 y.o. male w/ PMHx AUD, alcoholic cirrhosis, tobacco use disorder, esophageal varices, presenting to [facility] [place] with coffee ground emesis and melena now s/p EGD revealing likely esophagitis/gastropathy Follow-up Recommendations for Providers: -Please note AMA discharge due to family emergency. Patient understood risks and benefits of leaving, and had capacity to do so -Patient does not have a PCP, not previously scheduled in [facility] [place] [place] hepatology -Patient to have [facility] clinic visit in short order, [facility] [place] [place] GI alerted of need for close follow-up, urgent referral made -Patient to continue on Lasix and spironolactone and PPI -Please note that patient had distended abdomen (not painful), and 2+ pitting edema almost to the knees prior to discharge -GI to schedule endoscopy in 8 weeks, patient also to have colonoscopy to evaluate hematochezia. Consider scheduling both at once. -From [facility] discharge summary for work-up cirrhosis: Cirrhosis workup notable for negative CMV PCR, EBV PCR, hep A and B non-immune, hep C negative, ELISE ab neg, PEG ab neg, AFP WNL, K antigen neg, LKM1 ab neg, SMA ab WNL, AMA negative, Factor VIII, SENTHIL WNL, IgG mildly low 366, ceruloplasmin low at 13, GGT elevated 102, CMV neg, EBV neg. PCP Contact Information: No primary care provider on file. No primary physician on file. Phone: None Fax: None Pending Studies and Lab Data: none The patient will need the following test completed on: 01/11/2023 1. [facility] Diagnosis: Authorizing Provider: Angy Spivey MD Discharge Diagnoses (Hospital Problems) and Secondary Diagnoses (Chronic Problems): Active Hospital Problems Diagnosis Acute GI bleeding Alcoholic cirrhosis of liver with ascites Resolved Hospital Problems No resolved problems to display. There are no active non-hospital problems to display for this patient. History of Presentation (per 01/11/2023 Admission H&P): Patient reports he has had worsening nausea/vomiting over the last 24h. He notes that the melena and emesis started last night and we will This morning he had a second episode of coffee-ground emesis. Patient was recently admitted to [facility] 11/25-11/30 with similar symptoms and underwent EGD which revealed grade C esophagitis. Since arriving to the ED patient has had 2 additional episodes of coffee-ground emesis and one episode of melena. Patient notes he has had abdominal distention which has been unchanged. Patient typically takes omeprazole twice daily, Lasix 40 mg, spironolactone 100 mg, lactulose 20 mg 3 times daily. Patient notes that he has not taken his meds for 1 week. Last drink was in November before [facility] mis [place]. ED course: Patient was hypotensive and tachycardic on arrival, hemoglobin at 7.5 decreased to 6.1. GI was consulted who performed EGD which revealed no active variceal hemorrhage but gastritis and portal hypertension gastropathy is likely source of bleeding. Patient received ceftriaxone, octreotidedrip, and 1 unit PRBC Hospital Course: Monisha Argueta was admitted to the Intensive Care Unit with the above presentation. During the course of their ICU stay, the following medical issues were diagnosed and treated as follows: #Recent diagnosis of decompensated cirrhosis, without recent follow-up care #Hypovolemic hyponatremia #Hemorrhagic shock, resolving #Acute blood loss anemia Patient was initially started on proton pump inhibitor, octreotide, and ceftriaxone for SBP prophylaxis. Patient was also given fluid resuscitation with crystalloid and blood. He is status post 2 units of PRBCs. Patient was taken to endoscopy rapidly on hospital day 1. Likely source of GI bleed is visualized esophagitis/gastropathy. No sign of active bleeding from small varix, so likely not variceal hemorrhage. Patient was admitted to MICU for monitoring as he is still very tachycardic and slightly hypotensive. He remained HDS s/p unit pRBC and his Hb has remained stable. He had a non- bloody BM on day GI has been following, his EGD was revealing for Grade 1 varices in the lower third of esophagus, with moderate portal HTN gastropathy in the entire stomach. RUQ u/s for portal vein thrombus was negative. Patient had diagnostic and therapeutic paracentesis on 01/12. No evidence of SBP, PMNs of 22. 1.5 L was taken out. On 01/14, patient had requested to leave [facility] due to family emergency. Patient understood risks and benefits of leaving, and had capacity to do so. Patient does not have a PCP, not previously scheduled in [facility] [place] [place] hepatology. Patient to have [facility] clinic visit in short order, [facility] [place] [place] GI alerted of need for close follow- up, urgent referral made Patient to continue on Lasix and spironolactone and PPI. Discussed with patient to titrate lactulose to bowel movements. Please note that patient had distended abdomen (not painful), and 2+ pitting edema almost to the knees prior to discharge. GI to schedule endoscopy in 8 weeks, patient also to have colonoscopy to evaluate hematochezia. Consider scheduling both at once. From [facility] discharge summary for work-up cirrhosis: Cirrhosis workup notable for negative CMV PCR, EBV PCR, hep A and B non-immune, hep C negative, ELISE ab neg, PEG ab neg, AFP WNL, K antigen neg, LKM1ab neg, SMA ab WNL, AMA negative, Factor VIII, SENTHIL WNL, IgG mildly low 366, ceruloplasmin low at 13, GGT elevated 102, CMV neg, EBV neg. Procedures: Operations: Procedure(s): EGD, UPPER GI ENDOSCOPY (WRVU 2.09) Important Studies and Lab Data: Recent Labs 01/13/23 0845 01/13/23 0130 01/12/23 1600 01/12/23 0442 01/12/23 0208 WBC 7.4 7.3 -- -- 10.5* HGB 8.3* 8.3* 6.8* 7.4* < > 7.6* HCT 23.1* 23.1* 19.0* 21.4* < > 21.7* PLATELET 125* 126* -- -- 143* < > = values in this interval not displayed. Recent Labs 01/13/23 0130 01/12/23 0208 01/11/23 1340 NA 129* 128* 135 K 3.2* 3.5 3.6 CL 96* 94* 93* CO2 25 22 23 BUN 17 28* 35* CREATININE 0.55* 0.56* 0.51* CALCIUM 7.6* 7.9* 8.8 MAGNESIUM 0.72 0.67* 0.74 PHOS 2.9 3.3 4.0 Recent Labs 01/13/23 0130 01/12/23 0208 01/11/23 1340 BILITOT 4.8* 7.5* 8.2* BILIDIR 2.3* 2.1* -- AST 31 32 34 ALT 11 10 12 ALKPHOS 67 68 88 Recent Labs 01/13/2312901/12/23 0208 01/11/23 1340 INR 1.9 1.7 1.8 PTT 39* 35 38* No results for input(s): HA1C in the last 168 hours. No results for input(s): TSH in the last 168 hours. No results for input(s): HDL, LDLCHOL, CHOLHDL, TRIG, CHLPL in the last 168 hours. Microbiology Results (Last 30 days) Procedure Component Value Units Date/Time Body Fluid Culture, Aerobic & Anaerobic Peritoneal Fluid [[id number]] Collected: 01/12/23 1640 Lab Status: Preliminary result Specimen: Peritoneal Fluid Updated: 01/13/23 1436 Body Fluid Culture, Aerobic [[id number]] Collected: 01/12/23 1640 Lab Status: Preliminary result Specimen: Peritoneal Fluid Updated: 01/13/23 0759 Body Fluid Culture No growth to date. Gram Stain -- Cytocentrifuge Gram Stain performed No Neutrophils seen. No microorganisms seen. Anaerobic Culture [[id number]] Collected: 01/12/23 1640 Lab Status: Preliminary result Specimen: Peritoneal Fluid Updated: 01/13/23 1436 Anaerobic Culture No anaerobic organisms isolated to date Blood culture [[id number]] Collected: 01/12/23 1255 Lab Status: Preliminary result Specimen: Blood Updated: 01/13/23 1501 Blood Culture No growth at 1 day. Blood culture [[id number]] Collected: 01/12/23 1246 Lab Status: Preliminary result Specimen: Blood Updated: 01/13/23 1501 Blood Culture No growth at 1 day. Imaging: Results for orders placed or performed during the hospital encounter of 01/11/23 CT Abdomen & Pelvis wwo Contrast (GI BLEED) (Exam End: 01/11/2023 2:17 PM) Impression 1. No evidence of active hemorrhage during the scan. 2. Large volume ascites with evidence of portal hypertension. 3. Shock bowel. 4. Nonspecific gallbladder wall thickening in the setting of ascites, which may be secondary. Thank you for letting us participate in the care of this patient. If you are a health care provider and have any questions regarding this report, please contact the number below. For patients who have questions please contact the health nurse wound care that requested your imaging first. Abdomen Vascular Limited Hepatology Protocol (Exam End: 01/13/2023 8:40 AM) Impression 1. Recanalized umbilical vein. Coarsened hepatic parenchyma without capsular nodularity. No focal lesion is identified however there is limited visualization of the LEFT lobe of the liver. 2. Large volume ascites. 3. Main portal vein is patent diameter 11.5 mm. Hepatopedal flow. 4. Gallbladder with echogenic sludge distending. Wall thickness 3.3 mm. CBD: 3.5 mm. 5. Mild splenomegaly. Thank you for letting us participate in the care of this patient. If you are a health care provider and have any questions regarding this report, please contact the number above. For patients who have questions, please contact the health nurse wound care that requested your imaging first. Neena Davis, Staff Physician Electronically Signed Final Report 01/13/2023 10:08 am XR Chest One View (Exam End: 01/12/2023 1:00 PM) Impression No acute cardiopulmonary disease is detected in the setting of sepsis. Thank you for letting us participate in the care of this patient. If you are a health care provider and have any questions regarding this report, please contact the number below. For patients who have questions please contact the health nurse wound care that requested your imaging first. Discharge Condition: Guarded, but not critical. AMA discharge Discharge to: home without services Discharge Medications: Your Medications New Medications Dose Details ciprofloxacin 500 mg tablet Commonly known as: Cipro Take 1 tablet by mouth 2 times daily for 2 days. 500 mg Quantity: 4 tablet Refills: 0 folic acid 1 mg tablet Commonly known as: Vitamin B9 Take 1 tablet by mouth daily. 1,000 mcg Quantity: 30 tablet Refills: 1 multivitamin with minerals 9 mg iron-400 mcg Tablet Commonly known as: Thera M Take 1 tablet by mouth daily. 1 tablet Refills: 0 Continued medications with new dosing Dose Details lactulose 10 gram/15 mL Solution Commonly known as: Chronulac Take 30 mLs by mouth 3 times daily. Titrate to 3-4 bowel movements a day What changed: additional instructions 20 g Quantity: 1892 mL Refills: 3 spironolactone 100 mg tablet Commonly known as: Aldactone Take 0.5 tablets by mouth daily. What changed: how much to take 50 mg Quantity: 30 tablet Refills: 3 Continued medications, unchanged Dose Details furosemide 40 mg tablet Commonly known as: Lasix Take 1 tablet by mouth daily. 40 mg Quantity: 30 tablet Refills: [address] capsule Commonly known as: PriLOSEC Take 1 capsule by mouth 2 times daily. 40 mg Quantity: 60 capsule Refills: 3 Updated Allergies/ADRs: No Known Allergies Instructions Given to Patient at Discharge: Future Appointments and Orders Future Appointments and Orders Future Appointments Provider Department Dept Phone 01/24/2023 2:30 PM [facility] Internal Medicine at [facility] [place] [place] Arrive at: [facility] [phone] Future Orders Complete By Expires Referral to Gastroenterology [REF25 Custom] As directed Process Instructions: If requesting a colonoscopy please use [id number] AMB REFERRAL TO COLONOSCOPY PROCEDURE. This referral request is for evaluation and treatment of gastrointestinal health concerns. Scheduling Instructions: Comments: Press F2 to select a diagnosis and magnifying glass (F3) to enlarge workspace: I am referring to Gastroenterology Hepatology my 48 y.o. male patient Monisha Argueta for evaluation. My clinical question: 48 y/o with relatively new diagnosis of cirrhosis. First discovered at [facility] in11/2022. Alcohol use disorder. Labs drawn at [facility] for further workup in [place] summary (Cirrhosis workupnotable for negative CMV PCR, EBV PCR, hep A and B non-immune, hep C negative, ELISE ab neg, PEG ab neg, AFP WNL, K antigen neg, LKM1 ab neg, SMA ab WNL, AMA negative, Factor VIII, SENTHIL WNL, IgG mildlylow 366, ceruloplasmin low at 13, GGT elevated 102, CMV neg, EBV neg). Had varices and esophagitis at [facility]. Presented to [facility] [place] [place] after running out of meds and was found to have non-variceal UGIB. Discharging AMA from [facility] [place] [place] due to family emergency (daughter in car accident), but asking for close follow up as possible. Do Not Type Below Here [id number] Questions: My question or request is: See comment General Instructions None Patient Instructions Instruction after leaving the hospital Why you were hospitalized: You are hospitalized due to cirrhosis and gastrointestinal bleeding. Is very important that you obtain a primary care doctor. We will set you up for a clinic visit in 2 weeks (see below). Is very important that you follow with the liver doctors. Please call the hepatology clinic to schedule appointments if they do not call in 1-2 days. Given your family medical emergency, you have decided to leave AGAINST MEDICAL ADVICE Call your doctor or seek medical attention if you develop the following: chest pain, shortness of breath, passing out, feeling dizzy upon standing, passing out, diarrhea, constipation lasting longer than 2 days, fevers (temperature over 100.3), chills, abdominal pain, vomiting, difficulty or discomfort when urinating, bloody or black bowel movements, or any other acute or concerning symptom. Activity level: No restrictions Diet: No restrictions Driving: No restrictions, as before admission Shower/Bath: No restrictions Wound Care: None Home Oxygen therapy: None Follow-Up Appointments Future Appointments Date Time Provider Department Center 01/24/2023 2:30 PM [facility] Your Inpatient Doctor(s) at [facility] [place] [place]: Dr. Franklin Hobbs The Department of Hospital Medicine hopes you have a safe and stress free transition out of the hospital. As an additional safeguard to help this transition happen seamlessly we have created a tool to help us stay in communication in case there are any questions or concerns after your discharge. Ifyou are not being discharged to another care setting, where they will take over your medical care, please anticipate a brief questionnaire from our Department that will help us ensure you do not haveany issues with your discharge and are as safe and healthy as possible. This questionnaire will be sent out next business day after your discharge in the morning, and willbe delivered via text primarily but also email if texting is not possible. If there do happen to beany issues or concerns once you leave [facility], we apologize for any undue stress this may cause. Please do not hesitate to call your PCP office or seek further medical assistance if there are any immediate concerns about your health. This questionnaire is not meant to provide immediate access to a physician, but has been created to help us ease the transition out of the hospital. Someone from our department will reach out after the questionnaire is completed if you have raised any concerns, or have requested a callback, to help ensure your concerns are addressed and a plan is madeto keep you safe and healthy. Thank you in advance for your time completing this questionnaire. documented in this encounter Discharge Instructions * Patient Instructions* Franklin Hobbs MD - 01/13/2023 7:12 AM EST Instruction after leaving the hospital Why you were hospitalized: You are hospitalized due to cirrhosis and gastrointestinal bleeding. Is very important that you obtain a primary care doctor. We will set you up for a clinic visit in 2 weeks (see below). Is very important that you follow with the liver doctors. Please call the hepatology clinic to schedule appointments if they do not call in 1-2 days. Given your family medical emergency, you have decided to leave AGAINST MEDICAL ADVICE Call your doctor or seek medical attention if you develop the following: chest pain, shortness of breath, passing out, feeling dizzy upon standing, passing out, diarrhea, constipation lasting longer than 2 days, fevers (temperature over 100.3), chills, abdominal pain, vomiting, difficulty or discomfort when urinating, bloody or black bowel movements, or any other acute or concerning symptom. Activity level: No restrictions Diet: No restrictions Driving: No restrictions, as before admission Shower/Bath: No restrictions Wound Care: None Home Oxygen therapy: None Follow-Up Appointments Future Appointments Date Time Provider Department Center 01/24/2023 2:30 PM [facility] Your Inpatient Doctor(s) at [facility] [place] [place]: Dr. Franklin Hobbs The Department of Hospital Medicine hopes you have a safe and stress free transition out of the hospital. As an additional safeguard to help this transition happen seamlessly we have created a tool to help us stay in communication in case there are any questions or concerns after your discharge. Ifyou are not being discharged to another care setting, where they will take over your medical care, please anticipate a brief questionnaire from our Department that will help us ensure you do not haveany issues with your discharge and are as safe and healthy as possible. This questionnaire will be sent out next business day after your discharge in the morning, and willbe delivered via text primarily but also email if texting is not possible. If there do happen to beany issues or concerns once you leave [facility], we apologize for any undue stress this may cause. Please do not hesitate to call your PCP office or seek further medical assistance if there are any immediate concerns about your health. This questionnaire is not meant to provide immediate access to a physician, but has been created to help us ease the transition out of the hospital. Someone from our department will reach out after the questionnaire is completed if you have raised any concerns, or have requested a callback, to help ensure your concerns are addressed and a plan is madeto keep you safe and healthy. Thank you in advance for your time completing this questionnaire. documented in this encounter Medications at Time of Discharge Medication Sig Dispensed Refills Start Date End Date ciprofloxacin (Cipro) 500 mg tablet Take 1 tablet by mouth 2 times daily for 2 days. 4 tablet 01/13/2023 01/15/2023 folic acid (Vitamin B9) 1 mg tablet Take 1 tablet by mouth daily. 30 tablet 1 01/14/2023 03/16/2023 multivitamin with minerals (Thera M) 9 mg iron-400 mcg Tablet Take 1 tablet by mouth daily. 01/14/2023 04/22/2023 furosemide (Lasix) 40 mg tablet Take 1 tablet by mouth daily. 30 tablet 3 01/13/2023 06/07/2023 omeprazole (PriLOSEC) [address] capsule Take 1 capsule by mouth 2 times daily. 60 capsule 3 01/13/2023 01/25/2023 spironolactone (Aldactone) 100 mg tablet Take 0.5 tablets by mouth daily. 30 tablet 3 01/13/2023 01/24/2023 lactulose (Chronulac) 10 gram/15 mL Solution Take 30 mLs by mouth 3 times daily. Titrate to 3-4 bowel movements a day 1892 mL 3 01/13/2023 02/22/2023 documented as of this encounter Progress Notes * Franklin Hobbs MD - 01/13/2023 4:00 PM EST Hospital Medicine - Attending Day of Discharge Documentation Discharge diagnosis Active Hospital Problems Diagnosis Acute GI bleeding Alcoholic cirrhosis of liver with ascites Resolved Hospital Problems No resolved problems to display. Secondary Issues There are no active non-hospital problems to display for this patient. I have personally seen and examined the patient and they are ready for discharge. I spent >30 minutes (Day of Discharge Code 44410) involved in the final examination of the patient, discussion of the hospital stay, instructions for continuing care to all relevant caregivers, and preparation of discharge records, prescriptions and referral forms. Plans Discharge to home, AMA discharge Follow-up scheduled with [facility], GI Please see the Discharge Summary for complete details of any medication changes and additional plans. * Monica Kuo MD - 01/13/2023 6:29 AM EST GASTROENTEROLOGY & HEPATOLOGY CONSULTATION INPATIENT PROGRESS NOTE ID: Monisha Argueta is a 48 y.o. male with PMH tobacco use disorder (25 pack years, currently smoking) and alcohol use disorder (multiple years of 12+ drinks; last drink 11/23/22), EtOH cirrhosis c/b ascites and recent admission to [facility] (11/25/22-11/30/22) for upper GI bleed and volume overload who presents with 2 days of coffee-ground emesis and melena. Interval History: - EGD 01/11: [place] Grade D reflux esophagitis with oozing. Grade I esophageal varices. Completely flattened with air insufflation and no stigmata of variceal bleeding. Portal hypertensive gastropathy (PHG) with diffuse oozing. PHG and reflux esophagitis are the presumed source of coffee ground emesis. - on CTX and PPI BID - Hgb 7.4 -> 8.3 - HD stable, afebrile - Patient reporting worsening leg swelling. Denies any episodes of nausea, vomiting, hematemesis, melena. - reporting good appetite Active Hospital Problem List Patient Active Problem List Diagnosis Code Alcoholic cirrhosis of liver with ascites K70.31 Acute GI bleeding K92.2 Scheduled Meds: pantoprazole 40 mg Intravenous Daily lactulose 20 g Oral TID cefTRIAXone 1 g Intravenous Q24H melatonin 3 mg Oral Nightly Continuous Infusions: PRN Meds:. Physical Examination Vitals: 01/12/23 0130 01/12/23 0200 01/12/23 0400 01/12/23 0600 BP: 116/61 104/58 113/58 111/63 BP Location (NBP): Right arm Right arm Right arm Patient Position: Lying Lying Lying Pulse: (!) 117 (!) 119 (!) 117 (!) 110 Resp: Temp: 36.9 ??C (98.4 ??F) TempSrc: Oral SpO2: 94% 94% 90% 97% Weight: Height: PHYSICAL EXAM GENERAL: No acute distress, alert and oriented HEENT: AT/NC, sclerae anicteric, moist mucous membranes ABDOMEN: Soft, normoactive bowel sounds, non-tender, non-distended EXT: Warm, 2+ pitting edema SKIN: No jaundice Pertinent Recent labs CBC Lab Results Component Value Date WBC 10.5 (H) 01/12/2023 Hemoglobin 7.3 (L) 01/12/2023 Hematocrit 21.2 (L) 01/12/2023 Platelets 143 (L) 01/12/2023 Lab Results Component Value Date Sodium 128 (L) 01/12/2023 Potassium 3.5 01/12/2023 Chloride 94 (L) 01/12/2023 CO2 22 01/12/2023 BUN 28 (H) 01/12/2023 Creatinine 0.56 (L) 01/12/2023 Glucose Lvl 133 01/12/2023 LFT's Lab Results Component Value Date Alk Phos 88 01/11/2023 AST 34 01/11/2023 Albumin 2.9 (L) 01/11/2023 Total Bilirubin 8.2 (H) 01/11/2023 ALT 12 01/11/2023 Total Protein 5.6 (L) 01/11/2023 Pertinent Endoscopic Procedures/Reports: Reviewed in eDH Pertinent Recent Imaging: Reviewed in eDH Impression: Monisha Argueta is a 48 y.o. male with PMH tobacco use disorder (25 pack years, currently smoking) and alcohol use disorder (multiple years of 12+ drinks; last drink 11/23/22), EtOH cirrhosis c/b ascites and recent admission to [facility] (11/25/22- 11/30/22) for upper GI bleed and volume overload who presentswith 2 days of coffee-ground emesis and melena. Hgb 6.1 on admission after several episodes of coffee-ground emesis and melena. EGD 01/11 demonstrated LA Grade D reflux esophagitis with oozing. He did have evidence of Grade I esophageal varices butthese were completely flattened with air insufflation and there was no stigmata of variceal bleeding. He was also found to have portal hypertensive gastropathy (PHG) with diffuse oozing -- PHG and reflux esophagitis are the presumed source of coffee ground emesis. Regarding his hx of cirrhosis, patient has evidence of moderate ascites on CT a/p. At this time, would recommend restarting his diuretics (lasix, spironolactone) given volume overload and resolved GIbleed. Please continue his lactulose 20mg TID, titrating to 3-4 Bms daily. Infectious workup with blood cultures, urinalysis, and diagnotic paracentesis negative. Recommendations: # Upper GI Bleed - resolved - check H&H Q12 - maintain 2 large bore IVs, active T&S - transfuse for Hgb <7 - s/p octreotide gtt - continue 7d course of CTX daily for SBP ppx - PO BID PPI --- Continue on BID PPI for 8 weeks then transition to PPI daily indefinitely - Repeat EGD in 8 weeks to assess healing (ordered) - Recommend outpatient colonoscopy given hematochezia last month #Decompensated cirrhosis - obtain HBsAg, HBsAb, HBcAb, HCV Ab + PCR, ceruloplasmin, SENTHIL, ASMA, AMA, Ig levels, A1AT level, TTG IgA - f/u Peth (miscellaneous test) - Volume --> +ascites on exam and 2+ LE edema -> Resume 100/40 terrence/lasix ; recommend dx andtx paracentesis - Infection --> UCX (Negative), BCX (NGTD), dx tap (22 PMNs) - Bleeding --> 2 large bore Ivs, active T&S, trend H/H, transfuse for Hgb < 7, see above - Encephalopathy --> continue lactulose, consider starting rifaximin if covered by insurance (can discuss with pharmacy) - Coagulopathy - Vit K challenge w/IV 10mg x3 days - 2g Na diet - Thiamine, folate, MVI - CiWA - outpatient liver clinic follow up on discharge (ordered) This case was discussed with Dr. Rehan Matta. Recommendations were discussed with primary team. Monica Kuo M.D. Fellow in Gastroenterology and Hepatology Pager #[phone] 01/12/2023 Associated attestation - Rehan Matta MD - 01/14/2023 11:27 AM EST ATTENDING ATTESTATION: I have seen, examined, and discussed the patient with the GI fellow Dr. Kuo and I agree withthe findings, assessment, and plan as written. Rehan Matta MD, [facility] Attending Staff Section of Gastroenterology and Hepatology Pager [phone] * Curtis Weinstein MD - 01/12/2023 7:16 AM EST MICU STAFF PROGRESS NOTE Critical Care Medicine Author: CURTIS WEINSTEIN Patient seen and examined on critical care rounds. Active problems: Acute upper GI bleeding Esophagitis and portal hypertensive gastropathy Cirrhosis Lactic acidosis Interval Events: Underwent EGD from the ER, found to have non-bleeding grade 1 varices but severe reflux esophagitisand portal hypertensive gastropathy both with oozing. Admitted to the MICU from the endoscopy suite. Has remained off pressors overnight, tolerating RA. Completed 1U transfusion overnight. Intake/output in past 24 hours: +3.4L Vitals: Last value Range last 24 hrs Temperature Temp: 36.9 ??C (98.4 ??F) Temp: [36.4 ??C (97.5 ??F)-37.6 ??C (99.7 ??F)] Heart Rate Heart Rate: (!) 110 Heart Rate: [110-134] Blood Pressure BP: 111/63 BP: (81-146)/(53-98) Respiratory Rate Resp: 21 Resp: [16-28] SpO2 SpO2: 97 % SpO2: [90 %-100 %] Art BP BP (Arterial Line): -- Ventilator: RA Current Drips: none Physical Exam: Awake and alert, comfortable Lungs clear anterolaterally Heart regular, tachycardic Abdomen soft, non-tender, moderately distended 1+ extremity edema Labs/studies: WBC 10.5 hg 7.5 --> 7.5 --> 7.3 --> 7.6 Plt 143 Na 128 K 3.5 Cl 94 CO2 22 BUN 28 creat 0.56 Mag 0.67 AST and ALT normal, TB elevated at 8.2 alk phos normal INR 1.7 Lactate 6.9 --> 6.2 --> 2.6 --> 2.[address] abdomen - large volume ascites, non-dilated bowel but with enhancement of small bowel and large bowel suggestive of possible shock bowel. No active bleeding seen. ASSESSMENT, MANAGEMENT, and DECISION MAKIN48 y/o woman with recent diagnosis of cirrhosis now presenting with hematemesis and melena most likely from severe reflux esophagitis and portal hypertensive gastropathy. His hg has stabilized and his BP has remained stable off pressors. He will need to resume his bid PPI (he is not clear whether he has been taking his as an outpatient) along with his other home medications including lactulose and diuretics. We will perform a paracentesis today and have ordered a RUQ ultrasound to look for portal vein thrombosis. He is also receiving vitamin K and ceftriaxone for SBP prophylaxis. We will continue to hold pharmacologic DVT prophylaxis for another 24 hours with plans to restart tomorrow. At this point, he no longer requires ICU level care. We will discuss possible transfer with hospital medicine. IS PATIENT CRITICALLY ILL ? Is there a high potential of sudden, clinically significant, or life threatening deterioration? No Is there a need for direct personal assessment and management to treat/prevent multiple vital organfailure/deterioration? No If this patient is not critically ill, I certify the patient requires continued in-patient hospitalization for GI bleeding, decompensated cirrhosis. CURTIS WEINSTEIN * Angy Spivey MD - 01/12/2023 6:36 AM EST ICU Blue (#[id number]) Progress Note Patient info: Name: Monisha Argueta : 1975 PCP: No primary care provider on file. PCP phone number: None Date of Admission: 01/11/2023 ( Hospital Day 1 day ) Attending:Curtis Weinstein MD ID: Monisha Argueta is a 48 y.o. male w/ PMH tobacco use disorder (25 pack years, currently smoking)and alcohol use disorder (multiple years of 12+ drinks; last drink 11/23/22), EtOH cirrhosis c/b ascites and recent admission to [facility] (11/25/22- 11/30/22) for upper GI bleed and volume overload who presents with 1 day of coffee-ground emesis and melena. This is Hospital Day1 for Chief Complaint Patient presents with Dehydration 24 Hour Events/Subjective: Overnight: - Repeat Hgb after 2U pRBC 7.5. 0400 H&H 7.2, lactate clearing. This AM: - No episodes of hemoptysis or hematochezia since episode in ED. - Rpt Hb is stable - Remained HDS ON - Lactate cleared. Vasoactive & Sedating Medications: Infusions: Continuous Infusions: Ventilator Settings: Objective: Vitals Last value Range last 24 hrs Temperature Temp: 36.7 ??C (98.1 ??F) Temp: [36.4 ??C (97.5 ??F)-37.6 ??C (99.7 ??F)] Heart Rate Heart Rate: (!) 108 Heart Rate: [106-134] Blood Pressure BP: 113/62 BP: (81-146)/(53-98) Art Line BP BP (Arterial Line): -- MAP (NBP): [68 mmHg-109 mmHg] Respiratory Rate Resp: 23 Resp: [16-28] SpO2 SpO2: 92 % SpO2: [90 %-100 %] Oxygen Delivery Oxygen Therapy O2 Device: None (Room air) Intake/Output Summary (Last 24 hours) at 01/12/2023 1100 Last data filed at 01/12/2023 1000 Gross per 24 hour Intake 3638.75 ml Output 255 ml Net 3383.75 ml Patient Vitals for the past 168 hrs: Weight 01/11/231999 73.9 kg (162 lb 14.7 oz) 01/11/23 1254 72.6 kg (160 lb) Admit wt: 72.58 kg Physical Exam: Gen: in bed in NAD. A&Ox3 HEENT: anicteric, EOMI intact, no scleral icterus CV: RRR, no murmurs/rubs/gallops Resp: CTAB, no crackles/wheezes/ronchi, normal work of breathing Abd: Distended abdomen normal bowel sounds, soft, non-tender to palpation, no rebound or guarding Ext: 2+ LE pitting edema b/l 2+ distal pulses, Neuro: no focal deficits noted, CN II-XII grossly intact, moves all extremities spontaneously Psych: cooperative. Skin: no rashes, lesions, or ulcerations noted Lines/Drains/Airways Lines: PIV 01/11/23 1503 18 gauge;1 in length median cubital vein (antecubital fossa), left (Active) Indication/Daily Review of Necessity fluid therapy intermittent;medication therapy intermittent 01/11/231999 Site Preparation/Maintenance dressing: dry and intact 01/12/23 0600 Securement catheter stabilization device, secured with 01/11/231999 Patency/Maintenance flushed without difficulty;alcohol impregnated cap applied;blood return, able to obtain 01/12/23399 Phlebitis 0-->no symptoms 01/12/23599 Infiltration 0-->no symptoms 01/12/23599 Site Signs/Symptoms no redness;no swelling;no warmth;no pain;no palpable cord;no streak formation;no drainage 01/11/231999 PIV 01/11/23 175 16 gauge metacarpal vein (top of hand), left (Active) Indication/Daily Review of Necessity fluid therapy intermittent;medication therapy intermittent 01/11/231999 Site Preparation/Maintenance dressing: dry and intact 01/12/23599 Securement catheter stabilization device, secured with 01/11/231999 Patency/Maintenance flushed without difficulty;alcohol impregnated cap applied 01/12/23399 Phlebitis 0-->no symptoms 01/12/23599 Infiltration 0-->no symptoms 01/12/23599 Site Signs/Symptoms no swelling;no redness;no warmth;no pain;no palpable cord;no streak formation;no drainage 01/11/231999 Labs: Recent Labs 01/12/23 0745 01/12/23 0442 01/12/2320701/11/23200901/11/23 1559 01/11/23 1340 WBC -- -- 10.5* -- -- 10.2* HGB 7.6* 7.3* 7.6* 7.5* 6.1* 7.5* HCT 21.6* 21.2* 21.7* 21.6* 17.6* 21.6* PLATELET -- -- 143* -- -- 245 MCV -- -- 87.9 -- -- 93.5* Recent Labs 01/12/23 0208 01/11/23 1340 NA 128* 135 CL 94* 93* CO2 22 23 K 3.5 3.6 MAGNESIUM 0.67* 0.74 PHOS 3.3 4.0 CALCIUM 7.9* 8.8 BUN 28* 35* CREATININE 0.56* 0.51* LFTs Recent Labs 01/11/23 1340 PROT 5.6* ALBUMIN 2.9* AST 34 ALT 12 ALKPHOS 88 BILITOT 8.2* Coags Recent Labs 01/12/23 0208 01/11/23 1340 INR 1.7 1.8 PT 19.1* 20.6* PTT 35 38* Cardiac Enzymes No results for input(s): CK, TROPONINT, PROBNP in the last 168 hours. Endocrine No results for input(s): TSH, CORTISOL in the last 7068 hours. Invalid input(s): [id number] Recent Labs 01/11/23 2012 POCGLU 166 Heme No results for input(s): LDH, HAPTOGLOBIN, URICACID in the last 168 hours. ABG (Arterial Blood Gas) Recent Labs 01/12/23 0745 01/12/23 0442 01/12/23 0118 01/11/23 1510 01/11/23 1350 LACTATEVEN 2.2 2.6* 4.7* 6.2* 6.9* VBG (Venous Blood Gas) Recent Labs 01/12/23 0745 01/12/23 0442 01/12/23 0118 01/11/23 1510 01/11/23 1350 LACTATEVEN 2.2 2.6* 4.7* 6.2* 6.9* Mixed Venous Sat No results for input(s): [id number] in the last 168 hours. Microbiology: Microbiology Results (Last 30 days) No results found for the last 720 hours. Imaging: Results for orders placed or performed during the hospital encounter of 01/11/23 CT Abdomen & Pelvis wwo Contrast (GI BLEED) (Exam End: 01/11/2023 2:17 PM) Impression 1. No evidence of active hemorrhage during the scan. 2. Large volume ascites with evidence of portal hypertension. 3. Shock bowel. 4. Nonspecific gallbladder wall thickening in the setting of ascites, which may be secondary. Thank you for letting us participate in the care of this patient. If you are a health care provider and have any questions regarding this report, please contact the number below. For patients who have questions please contact the health nurse wound care that requested your imaging first. Medications Scheduled Meds: pantoprazole 40 mg Intravenous Daily lactulose 20 g Oral TID cefTRIAXone 1 g Intravenous Q24H melatonin 3 mg Oral Nightly Continuous Infusions: PRN Meds:. Assessment & Plan: Monisha Argueta is a 48 y.o. male w/ PMH of tobacco use disorder (25 pack years, currently smoking) and alcohol use disorder (multiple years of 12+ drinks; last drink 11/23/22), EtOH cirrhosis c/b ascites and recent admission to [facility] (11/25/22- 11/30/22) for upper GI bleed and volume overload who presents with 1 day of coffee-ground emesis and melena. Mr. Argueta has remained HDS s/p unit pRBC and his Hb has remained stable. He reported 1 non-bloodyBM this am. We will plan to recheck his Hb this afternoon and then liberalize his labs. GI is following, his EGD was revealing for Grade 1 varices in the lower third of esophagus, with moderate portal HTN gastropathy in the entire stomach. GI would like to proceed with with a IV Vitamin 10mg IV chal lenge for 3 days, and are considering a colonoscopy for further evaluation. Plan for a paracentesis today, and to keep him NPO for RUQ u/s for portal vein thrombus rule out tomorrow. NEURO: #History of back encephalopathy - Continue home lactulose 3 times daily CV: #Hemorrhagic shock - Status post 2 units PRBC - 1 L LR bolus now - Follow-up H&Hthis afternoon, and then liberalize. PULMONARY: GÉNESIS RENAL: Daily BMP GI: #Upper GI bleed #Concern for lower GI bleed - Status post 2 units. - status post EGD - GI planning for colonoscopy at some point this admission - Monitor for signs of bleeding - Clear liquid diet tonight -Ceftriaxone for SBP prophylaxis Per GI: - lactulose 20mg TID, titrating to 3-4 Bms daily - RUQ U/S w/ doppler for portal vein thrombus tomorrow - Paracentesis today. - on IV PPI BID - Holding home lasix/spironolactone iso GI bleed - continue lactuose TID with goal BM 3-4 daily - please send serum EtOH level and please send Peth (miscellaneous test) - Volume --> HOLD 100/40 terrence/lasix; recommend dx and tx paracentesis - Infection --> UCX, BCX, CXR, dx tap (JEF!) - Bleeding --> 2 large bore Ivs, active T&S, trend H/H, transfuse for Hgb < 7, see above - Encephalopathy --> continue lactulose, consider starting rifaximin if covered by insurance (can discuss with pharmacy) - Rule out portal vein thrombus w/ RUQUS w/doppler - Coagulopathy - Vit K challenge w/IV 10mg x3 days - 2g Na diet - outpatient liver clinic follow up on discharge #GI prophylaxis -Pantoprazole IV twice daily #Nutrition -Clear liquid - NPO at midnight ENDOCRINE: GÉNESIS ID: #Concern for SBP -SBP prophylaxis 1 g ceftriaxone daily HEME: #Acute blood loss anemia -Transfusions as above - Every 4 hour H&H ICU Checklist Sedation/Analgesia: Propofol -> Precedex as tolerated Glycemic control: Hyperoxia: titrate to lowest possible support to target SpO2 88% Diet/ Nutrition: Clear Liquid Activity goal for today: Pending SAT, extubation Last BM:this am DVT Prophylaxis: SCD GI Prophylaxis: IV PPx Code Status: Attempt Cardiopulmonary Resuscitation - Inpatient Family update last performed today Angy Spivey MD Internal Medicine, PGY-1 Blue Team #[id number] 01/12/23 11:00 AM * Belén Mae - 01/12/2023 6:36 AM EST ICU Blue (#[id number]) Progress Note Patient Info: Name: Monisha Argueta : 1975 PCP: No primary care provider on file. PCP phone number: None Date of Admission: 01/11/2023 ( Hospital Day 1 day ) Attending:Curtis Weinstein MD Hospital Day1 ID: Monisha Argueta is a 48 y.o. male with a PMH significant for AUD, alcoholic cirrhosis, tobacco use, esophageal varices, who presents for coffee ground emesis and melena, now s/p EGD revealing likely esophagitis/ portal hypertensive gastropathy. 24 Hour Events/ Subjective: Overnight, the patient received 2 units pRBCs. This morning, the patient denies further episodes of hematemesis or melena; also denies nausea and abdominal pain. Hemoglobin stable and lactate down trending. Vasoactive & Sedating Medications: Infusions: Continuous Infusions: Ventilator Settings: Mode: , SET RR: TV: PEEP: FiO2: VARIABLES PATIENT RR: PIP: Pplateau: SpO2: OUTPUT Resp: 18 SpO2: 95 % ABG (Arterial Blood Gas) Recent Labs 01/12/23 1135 01/12/23 0745 01/12/23 0442 01/12/23 0118 01/11/23 1510 LACTATEVEN 2.6* 2.2 2.6* 4.7* 6.2* VBG (Venous Blood Gas) Recent Labs 01/12/23 1135 01/12/23 0745 01/12/23 0442 01/12/23 0118 01/11/23 1510 LACTATEVEN 2.6* 2.2 2.6* 4.7* 6.2* Objective: Vitals Last value Range last 24 hrs Temperature Temp: 36.7 ??C (98.1 ??F) Temp: [36.7 ??C (98.1 ??F)-37.6 ??C (99.7 ??F)] Heart Rate Heart Rate: (!) 101 Heart Rate: [101-134] Blood Pressure BP: 92/71 (Team aware) BP: (81-146)/(53-98) Art Line BP BP (Arterial Line): -- MAP (NBP): [70 mmHg-109 mmHg] Respiratory Rate Resp: 18 Resp: [16-28] SpO2 SpO2: 95 % SpO2: [90 %-100 %] Oxygen Delivery Oxygen Therapy O2 Device: None (Room air) Intake/Output Summary (Last 24 hours) at 01/12/2023 1312 Last data filed at 01/12/2023 1200 Gross per 24 hour Intake 3638.75 ml Output 255 ml Net 3383.75 ml Patient Vitals for the past 168 hrs: Weight 01/11/231999 73.9 kg (162 lb 14.7 oz) 01/11/23 1254 72.6 kg (160 lb) Admit wt: 72.58 kg Physical Exam: Gen: in bed in NAD. A&Ox3 HEENT: scleral icterus, MMM, EOMI intact CV: RRR, no murmurs/rubs/gallops Resp: CTAB, no crackles/wheezes/ronchi, normal work of breathing Abd: distended, non-tender to palpation, no rebound or guarding Ext: 2+ pitting edema b/l to knees b/l Neuro: no focal deficits noted, CN II-XII grossly intact, moves all extremities spontaneously, no asterixis noted Psych: cooperative Skin: no rashes, lesions, or ulcerations noted Lines/Drains/Airways Lines: PIV 01/11/23 1503 18 gauge;1 in length median cubital vein (antecubital fossa), left (Active) Indication/Daily Review of Necessity fluid therapy intermittent;medication therapy intermittent 01/11/231999 Site Preparation/Maintenance dressing: dry and intact 01/12/23599 Securement catheter stabilization device, secured with 01/11/231999 Patency/Maintenance flushed without difficulty;alcohol impregnated cap applied;blood return, able to obtain 01/12/23399 Phlebitis 0-->no symptoms 01/12/23599 Infiltration 0-->no symptoms 01/12/23599 Site Signs/Symptoms no redness;no swelling;no warmth;no pain;no palpable cord;no streak formation;no drainage 01/11/231999 PIV 01/11/23 1756 16 gauge metacarpal vein (top of hand), left (Active) Indication/Daily Review of Necessity fluid therapy intermittent;medication therapy intermittent 01/11/231999 Site Preparation/Maintenance dressing: dry and intact 01/12/23599 Securement catheter stabilization device, secured with 01/11/231999 Patency/Maintenance flushed without difficulty;alcohol impregnated cap applied 01/12/23 040 Phlebitis 0-->no symptoms 01/12/23599 Infiltration 0-->no symptoms 01/12/23599 Site Signs/Symptoms no swelling;no redness;no warmth;no pain;no palpable cord;no streak formation;no drainage 01/11/231999 Labs: Recent Labs 01/12/23 0745 01/12/23 0442 01/12/23 0208 01/11/23200901/11/23 1559 01/11/23 1340 WBC -- -- 10.5* -- -- 10.2* HGB 7.6* 7.3* 7.6* 7.5* 6.1* 7.5* HCT 21.6* 21.2* 21.7* 21.6* 17.6* 21.6* PLATELET -- -- 143* -- -- 245 MCV -- -- 87.9 -- -- 93.5* Recent Labs 01/12/23 0208 01/11/23 1340 NA 128* 135 CL 94* 93* CO2 22 23 K 3.5 3.6 MAGNESIUM 0.67* 0.74 PHOS 3.3 4.0 CALCIUM 7.9* 8.8 BUN 28* 35* CREATININE 0.56* 0.51* LFTs Recent Labs 01/12/23 0208 01/11/23 1340 PROT 4.6* 5.6* ALBUMIN 2.3* 2.9* AST 32 34 ALT 10 12 ALKPHOS 68 88 BILITOT 7.5* 8.2* BILIDIR 2.1* -- Coags Recent Labs 01/12/23 0208 01/11/23 1340 INR 1.7 1.8 PT 19.1* 20.6* PTT 35 38* Cardiac Enzymes No results for input(s): CK, TROPONINT, PROBNP in the last 168 hours. Endocrine No results for input(s): TSH, CORTISOL in the last 7068 hours. Invalid input(s): [id number] Recent Labs 01/11/23 2012 POCGLU 166 Heme No results for input(s): LDH, HAPTOGLOBIN, URICACID in the last 168 hours. ABG (Arterial Blood Gas) Recent Labs 01/12/23 1135 01/12/23 0745 01/12/23 0442 01/12/23 0118 01/11/23 1510 LACTATEVEN 2.6* 2.2 2.6* 4.7* 6.2* VBG (Venous Blood Gas) Recent Labs 01/12/23 1135 01/12/23 0745 01/12/23 0442 01/12/23 0118 01/11/23 1510 LACTATEVEN 2.6* 2.2 2.6* 4.7* 6.2* Mixed Venous Sat No results for input(s): H3OSVA5 in the last 168 hours. Microbiology: Microbiology Results (Last 30 days) No results found for the last 720 hours. Imaging: Results for orders placed or performed during the hospital encounter of 01/11/23 CT Abdomen & Pelvis wwo Contrast (GI BLEED) (Exam End: 01/11/2023 2:17 PM) Impression 1. No evidence of active hemorrhage during the scan. 2. Large volume ascites with evidence of portal hypertension. 3. Shock bowel. 4. Nonspecific gallbladder wall thickening in the setting of ascites, which may be secondary. Thank you for letting us participate in the care of this patient. If you are a health care provider and have any questions regarding this report, please contact the number below. For patients who have questions please contact the health nurse wound care that requested your imaging first. Medications Scheduled Meds: pantoprazole 40 mg Intravenous BID thiamine 50 mg Oral Daily folic acid 1,000 mcg Oral Daily multivitamin with minerals 1 tablet Oral Daily lactulose 20 g Oral TID cefTRIAXone 1 g Intravenous Q24H melatonin 3 mg Oral Nightly Continuous Infusions: PRN Meds: Assessment & Plan: Monisha Argueta is a 48 y.o. male with a PMH significant for AUD, alcoholic cirrhosis, tobacco use, esophageal varices, who presented on 01/11/2023, now on HD #1 for coffee ground emesis and melena, now s/p EGD revealing likely esophagitis/ portal hypertensive gastropathy. The patient received 2 units pRBCs in the ED; his hemoglobin has since remained stable, and he has been HDS. Will plan to recheck another H&H this afternoon, then transition to daily labs. He hasnot had any further episodes of emesis; he had one BM this morning that was formed and non-bloody. EGD performed 01/11/2023 revealed grade 1 varices in the lower third of the esophagus, with moderate p ortal HTN gastropathy in the entire stomach. Per GI recommendations, will give vitamin K challenge with 10 mg IV for 3 days; GI considering colonoscopy during this admission. Will plan for paracentesis today. In anticipation for RUQ ultrasound tomorrow to rule out portal vein thrombus, will make patient NPO at midnight. Neuro # History of hepatic encephalopathy -- Continue home lactulose TID Cardiovascular #Hemorrhagic shock -- s/p 2 units pRBCs -- s/p 1 L LR bolus -- F/u H&H this afternoon, then daily CBC Pulmonary GÉNESIS Renal/Fluid/Electrolytes -- Daily BMP Gastrointestinal/Metabolic/Nutrition # UGIB # C/f lower GI bleed -- s/p 2 units pRBCs -- s/p EGD -- GI planning for colonoscopy at some point this admission -- NPO at midnight for RUQ u/s tomorrow -- Ceftriaxone 1 g daily for SBP ppx -- Monitor for signs of bleeding #Decompensated alcoholic cirrhosis -- RUQ u/s with doppler to r/o portal vein thrombus -- Serum EtOH level, peth -- Hold 100/40 spironolactone, furosemide -- Paracentesis today -- Vitamin K challenge, 10 mg IV x3 days -- 2 g Na diet -- Thiamin, folate, MVI -- Pantoprazole IV BID Endocrine GÉNESIS Hematology #Acute blood loss anemia -- H&H this afternoon, then daily CBC -- Transfusions as above Infection #Concern for SBP -- SBP ppx 1 g ceftriaxone daily ICU Checklist Sedation/ analgesia: N/A Glycemic control: Hyperoxia: titrate to lowest possible support to target SpO2 88% Diet/ nutrition: Daily Healthy Menu Choices/Cardiac diet ([facility] [place]Diet) 2 GM NA Last BM:01/12/2023 DVT prophylaxis: SCD GI prophylaxis: pantoprazole 40 mg IV BID Code status: Attempt Cardiopulmonary Resuscitation - Inpatient Family update last performed 01/12/2023 Belén Mae * Josh Castaneda MD - 01/11/2023 7:10 PM EST CRITICAL CARE ATTENDING This 48 y.o. year old male was admitted to [facility] with GI bleeding. I have personally examined the patient and reviewed his medical records and radiographic studies. In brief, Mr. Montes, who has a long history of alcohol use disorder, was recently diagnosed withcirrhosis. Last night, he had onset of coffee-ground emesis accompanied by melena. In the ED, he was tachycardic with a soft blood pressure. He was transfused 2 units of PRBCs for a hemoglobin of 6.1. Late this afternoon he underwent endoscopy, which demonstrated small, nonbleeding varices, esophagitis, and portal hypertensive gastropathy. He was admitted to [facility] for further management. He notes roughly 2 months of lower extremity edema. He has noted an increase in abdominal girth over the past months, but says that it has not changed recently. He has not had abdominal pain. His past medical history is otherwise largely unremarkable. Vital signs: Temp: [36.4 ??C (97.5 ??F)-37 ??C (98.6 ??F)] Heart Rate: [112-132] Resp: [16-24] BP: (81-121)/(53-90) SpO2: [94 %-100 %] Heart Rate from SpO2: [118 bpm-122 bpm] There is no height or weight on file to calculate BMI. On exam today, he was alert and interactive. He has multiple spider telangiectasias, scleral icterus. His lungs were clear. I did not appreciate a murmur. His abdomen is distended, nontender. He has mild pitting lower extremity edema. I reviewed the laboratory data, which were notable for slight leukocytosis; anemia; normal platelets; mildly elevated BUN with normal creatinine; normal transaminases with hyperbilirubinemia; elevated PT/INR; elevated lactate; normal ammonia. I personally reviewed his radiographic studies. He had a CT of the abdomen and pelvis which showed large volume ascites, diffuse thickening and enhancement of the bowel (which the radiologist thoughtwas suggestive of shock bowel). Assessment and Plan: 48-year-old man with cirrhosis, presenting with an upper GI bleed that appearsdue to some combination of esophagitis and portal hypertensive gastropathy. Additionally, he has CTfindings suggestive of shock bowel, though reassuringly, he has no abdominal pain, and a benign abdominal exam. His elevated lactate is likely due to a combination of transient hypoperfusion superimposed on a background of chronic liver disease. We will follow his lactate to assure clearance; follow his hemoglobin and transfuse as necessary; continue the octreotide along with the PPI; continue and complete a short course of ceftriaxone. IS PATIENT CRITICALLY ILL? Is there a high potential of sudden, clinically significant, or life threatening deterioration? Yes Is there a need for direct personal assessment and management to treat/prevent multiple vital organfailure/deterioration? Yes PATIENT IS CRITICALLY ILL WITH THESE DIAGNOSES BEING MANAGED BY [facility] TEAM: Acidosis Lactic Active Hemorrhage Gastrointestinal Liver Failure Chronic hepatic failure without coma I personally performed 40 minutes of aggregate critical care time, exclusive of procedures and teaching. This includes time spent during direct patient evaluation and reassessment, interpretation of diagnostic studies, directing life and/or organ supporting interventions, and documentation on the unit. documented in this encounter H&P Notes * Zaynab Denney MD - 01/12/2023 4:22 PM EST Inpatient Hospital Medicine Admission History and Physical Patient Name: MONISHA ARGUETA Date of : 1975 Age: 48 y.o. Hospital Admit Date: 01/11/2023 Hospital Day: 1 Inpatient Attending: Galina Key DO PCP: No primary care provider on file. (None) Chief Complaint Patient presents with Dehydration ID: Monisha Argueta is a 48 y.o. male w/ PMH of AUD, alcoholic cirrhosis, tobacco use disorder, esophageal varices, presenting to [facility] [place] with coffee ground emesis and melena s/p EGD revealing likely esophagitis/gastropathy now transferred from MICU to hospital medicine. SUBJECTIVE History of Present Illness: Monisha Argueta is a 48 y.o. male with PMH of AUD, alcoholic cirrhosis, tobacco use disorder, esophageal varices, presenting to [facility] [place] with coffee ground emesis and melena s/p EGD revealing likely esophagitis/gastropathy [facility]. Per MICU HPI 01/11/2023: Patient reports he has had worsening nausea/vomiting over the last 24h. He notes that the melena and emesis started last night and we will This morning he had a second episode of coffee-ground emesis. Patient was recently admitted to [facility] [place] 11/25-11/30 with similar symptoms and underwent EGD which revealed grade C esophagitis. Since arriving to the ED patient has had 2 additional episodes of coffee-ground emesis and one episode of melena. Patient notes he has had abdominal distention which has been unchanged. Patient typically takes omeprazole twice daily, Lasix 40 mg, spironolactone 100 mg, lactulose 20 mg 3 times daily. Patient notes that he has not taken his meds for 1 week. Last drink was in November before [facility] mis [place]. ED course: Patient was hypotensive and tachycardic on arrival, hemoglobin at 7.5 decreased to 6.1. GI was consulted who performed EGD which revealed no active variceal hemorrhage but gastritis and portal hypertension gastropathy is likely source of bleeding. Patient received ceftriaxone, octreotidedrip, and 1 unit PRBC. He was admitted to the MICU for monitoring as he was still very tachycardic and slightly hypotensive. Octreotide drip was stopped given low concern for variceal bleeding. IV CTX has been continued for SBP prophylaxis. He did not require pressors or massive transfusions. He has gotten 2 units of pRBCS since arrival and his Hgb has remained stable today. He had a non-bloody BM today. Per GI, his EGD revealed Grade 1 varices in the lower third of esophagus with moderate portal HTN gastropathy in the entire stomach. He was started on an IV Vitamin K challenge for 3 days. He underwent paracentesistoday in the ICU prior to transfer and he is NPO at [place] for a RUQ US to rule out PVT. On interview, he denies any complaints. No further episodes of blood in stool since admission. He denies nausea/vomiting, dizziness, chest pain, or shortness of breath. He was drinking 12 drinks a day but has not had a drink since November when he was hospitalized at [facility]. Review of Systems (Positives in Bold): See HPI. Past Medical History: No past medical history on file. Patient Active Problem List Diagnosis Code Alcoholic cirrhosis of liver with ascites K70.31 Acute GI bleeding K92.2 Past Surgical History: Past Surgical History: Procedure Laterality Date PRO UPPER GI ENDOSCOPY, DIAGNOSTIC N/A 01/11/2023 EGD, UPPER GI ENDOSCOPY (WRVU 2.09) performed by Rehan Matta MD at [facility] END[facility] Social History: Social History Socioeconomic History Marital [...] used Substance and Sexual Activity Alcohol use: Never Drug use: Never Sexual activity: Yes Other Topics Concern Not on file Social History Narrative Not on file Social Determinants of Health Financial Resource Strain: Not on file Food Insecurity: Not on file Transportation Needs: Not on file Physical Activity: Not on file Intimate Partner Violence: Not on file Housing Stability: Not on file Family History: No family history on file. Allergies: No Known Allergies Prior To Admission Medications: Medications Prior to Admission Medication Sig Dispense Refill Last Dose furosemide (Lasix) 40 mg tablet Take 40 mg by mouth daily. Past Week lactulose (Chronulac) 10 gram/15 mL Solution Take 20 g by mouth 3 times daily. Past Week spironolactone (Aldactone) 100 mg tablet Take 100 mg by mouth daily. Past Week omeprazole (PriLOSEC) [address] capsule Take 40 mg by mouth 2 times daily. Past Week Immunizations: There is no immunization history on file for this patient. OBJECTIVE: Vitals: Last value Range last 24 hrs Temperature Temp: 36.7 ??C (98.1 ??F) Temp: [36.7 ??C (98.1 ??F)-37.6 ??C (99.7 ??F)] Heart Rate Heart Rate: (!) 101 Heart Rate: [101-134] Blood Pressure BP: 92/71 (Team aware) BP: (81-146)/(53-98) Art Line BP BP (Arterial Line): -- MAP (NBP): [70 mmHg-109 mmHg] Respiratory Rate Resp: 18 Resp: [17-28] SpO2 SpO2: 95 % SpO2: [90 %-100 %] Oxygen Delivery Oxygen Therapy O2 Device: None (Room air) Intake/Output Summary (Last 24 hours) at 01/12/2023 1622 Last data filed at 01/12/2023 1400 Gross per 24 hour Intake 3359.75 ml Output 255 ml Net 3104.75 ml I/O last 3 completed shifts: In: 3588.8 [P.O.:700; I.V.:1700; Blood:1188.8] Out: 205 [Urine:200; Blood:5] Body mass index is 22.72 kg/m??. Patient Vitals for the past 168 hrs: Weight 01/11/231999 73.9 kg (162 lb 14.7 oz) 01/11/23 1254 72.6 kg (160 lb) Admit wt: 72.58 kg Physical Exam: GENERAL: Young male lying in bed, awake, alert, no acute distress HEENT: Anicteric, no conjunctival injection CV: RRR, no murmurs/rubs/gallops, 2+ radial/DP pulses PULM: Normal respiratory effort, CTA with good air entry bilaterally, no rales/rhonchi/wheezes ABDOMEN: Soft, non-tender, non-distended, no masses, no guarding EXTREMITIES: No lower extremity edema. No clubbing or cyanosis PSYCH/NEURO: Appropriate affect and cognition SKIN: Warm, dry, no rashes LABS: CBC: Recent Labs 01/12/23 0745 01/12/23 0442 01/12/23 0208 01/11/23 1559 01/11/23 1340 WBC -- -- 10.5* -- 10.2* HGB 7.6* 7.3* 7.6* < > 7.5* HCT 21.6* 21.2* 21.7* < > 21.6* PLATELET -- -- 143* -- 245 NEUTROABS -- -- 6.22* -- 7.39* < > = values in this interval not displayed. Chemistry: Recent Labs 01/12/23 0208 01/11/23 1340 NA 128* 135 K 3.5 3.6 CL 94* 93* CO2 22 23 BUN 28* 35* CREATININE 0.56* 0.51* GLUCOSE 133 157 ANIONGAP 12 19* Recent Labs 01/12/23 0208 01/11/23 1340 CALCIUM 7.9* 8.8 MAGNESIUM 0.67* 0.74 PHOS 3.3 4.0 LFT's: Recent Labs 01/12/23 0208 01/11/23 1340 BILITOT 7.5* 8.2* BILIDIR 2.1* -- ALBUMIN 2.3* 2.9* ALKPHOS 68 88 ALT 10 12 AST 32 34 Coags: Recent Labs 01/12/23 0208 01/11/23 1340 PT 19.1* 20.6* INR 1.7 1.8 PTT 35 38* Recent Labs 01/12/23 0208 01/11/23 1340 INR 1.7 1.8 Cardiac enzymes: No results for input(s): TROPONINT, CK, PROBNP in the last 7068 hours. Endocrine: No results for input(s): TSH, CORTISOL in the last 7068 hours. Invalid input(s): [id number] No results for input(s): HA1C in the last 7068 hours. Lipids: Heme: No results for input(s): LDH, HAPTOGLOBIN, URICACID in the last 168 hours. ABG (Arterial Blood Gas): No results found for: PHART, PO2ART, ENS5RRY, TFK1JBX VBG (Venous Blood Gas): No results for input(s): PHVEN, GXG1HWX, PO2VEN, KUM9UBO, BEVEN, YVM2UBV in the last 72hours. EKG: Lab Results Component Value Date/Time DIAGLINE 01/11/2023 1337 Sinus tachycardia Prolonged QT Abnormal ECG No previous ECGs available Confirmed by MD John, Jermaine Ojeda ([id number]) on 01/11/2023 4:13:56 PM QTCCALC 520 01/11/2023 1337 Vascular: No results found for: VBTEXTRPT Microbiology: No results found for: URINECULTURE No results found for: GRAMSTAIN, BFCX, LOWERRESPCX, TISSUECX No results found for: BLOODCX Imaging/Diagnostics: Results for orders placed or performed during the hospital encounter of 01/11/23 (from the past 48 hour(s)) CT Abdomen & Pelvis wwo Contrast (GI BLEED) (Exam End: 01/11/2023 2:17 PM) Impression 1. No evidence of active hemorrhage during the scan. 2. Large volume ascites with evidence of portal hypertension. 3. Shock bowel. 4. Nonspecific gallbladder wall thickening in the setting of ascites, which may be secondary. Thank you for letting us participate in the care of this patient. If you are a health care provider and have any questions regarding this report, please contact the number below. For patients who have questions please contact the health nurse wound care that requested your imaging first. Chest One View (Exam End: 01/12/2023 1:00 PM) Impression No acute cardiopulmonary disease is detected in the setting of sepsis. Thank you for letting us participate in the care of this patient. If you are a health care provider and have any questions regarding this report, please contact the number below. For patients who have questions please contact the health nurse wound care that requested your imaging first. Medications: Scheduled: pantoprazole 40 mg Intravenous BID thiamine 50 mg Oral Daily folic acid 1,000 mcg Oral Daily multivitamin with minerals 1 tablet Oral Daily albumin human 25 % 12.5 g Intravenous Q15 Min lactulose 20 g Oral TID cefTRIAXone 1 g Intravenous Q24H melatonin 3 mg Oral Nightly Continuous: PRN: ASSESSMENT and PLAN: Monisha Argueta is a 48 y.o. male w/ PMH of AUD, alcoholic cirrhosis, tobacco use disorder, esophageal varices, presenting to [facility] [place] with coffee ground emesis and melena s/p EGD revealing likely esophagitis/gastropathy now transferred from MICU to hospital medicine. Etiology of GI bleed likely due to esophagitis/gastropathy per EGD evaluation. He ultimately will need colonoscopy at some point given concern for lower GI bleed as well. Will scale back Hgb checks to BID for tonight given stabilization in Hgb over the past 24 hours. Preliminary fluid studies from paracentesis today demonstrates 22 PMNs so low concern of SBP- will continue prophylactic dose of CTX for now. Anemia is likely secondary to blood loss but interestingly indirect bilirubin is elevated. Will plan to check haptoglobin and LDH with morning labs to rule out hemolysis. #Upper GI bleed #Concern for lower GI bleed - GI following, appreciate recs - S/p EGD 01/11 - GI planning for colonoscopy at some point this admission - Will hold off on IV Vit K challenge given normalizing INR - Continue IV pantoprazole 40 mg BID #Acute decompensated cirrhosis #History of hepatic encephalopathy - Continue home lactulose TID with goal 3-4 BM daily - Consider starting rifaximin if covered by insurance (can discuss with pharmacy) - Holding home lasix/spironolactone iso GI bleed and hypotension - S/p diagnostic and therapeutic paracentesis (01/12) - Follow up RUQ US with Doppler to rule out portal vein thrombosis - Will need outpatient liver clinic follow up on discharge #Hemorrhagic shock, resolving #Acute blood loss anemia - S/p 2 units of pRBCs - Trend H&H Q8H, transfuse for Hgb <7 - T&S up to date, consent obtained - Currently receiving albumin s/p paracentesis #Concern for SBP - Continue 1g IV CTX daily for SBP prophylaxis #Hyponatremia - Likely due to cirrhosis and fluid resuscitation, will continue to monitor #Indirect hyperbilirubinemia - Anemia likely to be secondary acute GI bleed - Will add on haptoglobin and LDH to investigate for hemolysis #Housekeeping: DVT PPx: SCD GI PPx: IV PPI BID Diet: Daily Healthy Menu Choices/Cardiac diet ([facility] [place]-Diet) 2 GM NA NPO diet (Give Meds) Lines: PIV 01/11/23 1503 18 gauge;1 in length median cubital vein (antecubital fossa), left (Active) Number of days: 1 PIV 01/11/23 1756 16 gauge metacarpal vein (top of hand), left (Active) Number of days: 0 Level of care: Med/surg Vitals: Q4H D/c planning: Pending clinical course Code status: FULL CODE Zaynab Denney MD Internal Medicine [address] Medicine, Pager #[phone] Associated attestation - Galina Key DO - 01/12/2023 9:34 PM EST 48M with AUD (quit in November) and decompensated cirrhosis who presented with coffee ground emesis and melena and hgb of 6. He was started on PPI, Ceftriaxone and octreotide in the MICU. He had EGDshowing grade 1 EV with oozing esophagitis as well as oozing portal hypertensive gastropathy. He has received 2U pRBCs and hgb has remained stable in 7s today. He states his most recent BM was non-loretta anotic. Continue PPI BID and trend hgb bid, if stable tomorrow could go to daily. There should likely be discussion of possible TIPs vs BRTO given portal hypertensive gastropathy with ongoing oozing.He is currently mentating well without asterixis or other signs of HE but would continue lactulose and can see if his insurance would cover Rifaximin. Will continue to hold his lasix/terrence today given soft BP. Paracentesis without evidence on SBP so will continue on ppx Ceftriaxone dosing for now given bleed. Interestingly, he has an elevated indirect bili so will add on LDH and haptoglobin. * Rehan Kelly MD - 01/11/2023 6:45 PM EST Images from the original note were not included. ICU Blue Team History and Physical Patient info: Name: Monisha Argueta : 1975 PCP: No primary care provider on file. PCP phone number: None Date of Admission: 01/11/2023 ( Hospital Day 0 days ) Attending:Curtis Weinstein MD ID: Monisha Argueta is a 48 y.o. male w/ PMHx AUD, alcoholic cirrhosis, tobacco use disorder, esophageal varices, presenting to [facility] [place] [place] with coffee ground emesis and melena now s/p EGD revealing likely esophagitis/gastropathy Patient reports he has had worsening nausea/vomiting over the last 24h. He notes that the melena and emesis started last night and we will This morning he had a second episode of coffee-ground emesis. Patient was recently admitted to [facility] 11/25-11/30 with similar symptoms and underwent EGD which revealed grade C esophagitis. Since arriving to the ED patient has had 2 additional episodes of coffee-ground emesis and one episode of melena. Patient notes he has had abdominal distention which has been unchanged. Patient typically takes omeprazole twice daily, Lasix 40 mg, spironolactone 100 mg, lactulose 20 mg 3 times daily. Patient notes that he has not taken his meds for 1 week. Last drink was in November before [facility] mis [place]. ED course: Patient was hypotensive and tachycardic on arrival, hemoglobin at 7.5 decreased to 6.1. GI was consulted who performed EGD which revealed no active variceal hemorrhage but gastritis and portal hypertension gastropathy is likely source of bleeding. Patient received ceftriaxone, octreotidedrip, and 1 unit PRBC Review of Systems (positives in bold) General: chills, fatigue, fever or night sweats Eye: blurry vision, double vision, loss of vision or photophobia HENT: headaches, sore throat or vertigo Heme/Lymph: Bleeding/bruising, blood clots, jaundice, pallor or swollen lymph nodes Resp: cough, hemoptysis, orthopnea, shortness of breath or wheezing Cardio: chest pain, dyspnea on exertion, edema, loss of consciousness, palpitations, paroxysmal nocturnal dyspnea or shortness of breath Gastro: abdominal pain, blood in stools, constipation, diarrhea, heartburn, hematemesis, melena or nausea/vomiting : dysuria, hematuria or urinary frequency/urgency MSK: joint pain, joint stiffness, joint swelling, muscle pain or muscular weakness Neuro:dizziness, gait disturbance, impaired coordination/balance, memory loss, numbness/tingling, seizures, speech problems, tremors or visual changes Derm: lumps or rash PMH No past medical history on file. Meds pantoprazole 40 mg Intravenous Daily Vasoactive & Sedating Medications: Infusions: Continuous Infusions: octreotide (SandoSTATIN) (5 mcg/mL) in sodium chloride 0.9% 100 mL infusion 50 mcg/hr (01/11/23 1502) Objective: Vitals Last value Range last 24 hrs Temperature Temp: 37 ??C (98.6 ??F) Temp: [36.4 ??C (97.5 ??F)-37 ??C (98.6 ??F)] Heart Rate Heart Rate: (!) 120 Heart Rate: [112-132] Blood Pressure BP: 106/67 BP: (96-121)/(60-90) Art Line BP BP (Arterial Line): -- MAP (NBP): [68 mmHg-96 mmHg] Respiratory Rate Resp: 23 Resp: [16-24] SpO2 SpO2: 99 % SpO2: [94 %-100 %] Oxygen Delivery Oxygen Therapy O2 Device: None (Room air) Ventilator Settings: Mode: , SET RR: TV: PEEP: FiO2: VARIABLES PATIENT RR: PIP: Pplateau: SpO2: OUTPUT Resp: 23 SpO2: 99 % ABG (Arterial Blood Gas) Recent Labs 01/11/23 1510 01/11/23 1350 LACTATEVEN 6.2* 6.9* VBG (Venous Blood Gas) Recent Labs 01/11/23 1510 01/11/23 1350 LACTATEVEN 6.2* 6.9* Intake/Output Summary (Last 24 hours) at 01/11/2023 1845 Last data filed at 01/11/2023 1820 Gross per 24 hour Intake 950 ml Output 5 ml Net 945 ml Patient Vitals for the past 168 hrs: Weight 01/11/23 1254 72.6 kg (160 lb) 72.58 kg Physical Exam: Gen: in bed in NAD. RASS 1 HEENT: scleral icterus, EOMI intact, CV: tachycardic, no murmurs/rubs/gallops Resp: CTAB, no crackles/wheezes/ronchi, normal work of breathing Abd: +fluid wave, abdominal distension, no guarding, TTP throughout Ext: 2+ distal pulses, no pedal edema Neuro: no focal deficits noted, CN II-XII grossly intact, moves all extremities spontaneously Psych: cooperative. Skin: jaundiced Lines/Drains/Airways Lines: PIV 01/11/23 1336 18 gauge;1 in length median cubital vein (antecubital fossa), right (Active) Site Preparation/Maintenance site cleansed: chlorhexidine solution 01/11/23 1600 Phlebitis 0-->no symptoms 01/11/23 1600 Infiltration 0-->no symptoms 01/11/23 1600 PIV 01/11/23 1503 18 gauge;1 in length median cubital vein (antecubital fossa), left (Active) Site Preparation/Maintenance site cleansed: chlorhexidine solution 01/11/23 1600 Phlebitis 0-->no symptoms 01/11/23 1600 Infiltration 0-->no symptoms 01/11/23 1600 PIV 01/11/23 1756 16 gauge metacarpal vein (top of hand), left (Active) Labs: Recent Labs 01/11/23 1559 01/11/23 1340 WBC -- 10.2* HGB 6.1* 7.5* HCT 17.6* 21.6* PLATELET -- 245 MCV -- 93.5* Recent Labs 01/11/23 1340 NA 135 CL 93* CO2 23 K 3.6 MAGNESIUM 0.74 PHOS 4.0 CALCIUM 8.8 BUN 35* CREATININE 0.51* LFTs Recent Labs 01/11/23 1340 PROT 5.6* ALBUMIN 2.9* AST 34 ALT 12 ALKPHOS 88 BILITOT 8.2* Coags Recent Labs 01/11/23 1340 INR 1.8 PT 20.6* PTT 38* Cardiac Enzymes No results for input(s): CK, TROPONINT, PROBNP in the last 168 hours. Endocrine No results for input(s): TSH, CORTISOL in the last 7068 hours. Invalid input(s): [id number] No results for input(s): POCGLU in the last 168 hours. Heme No results for input(s): LDH, HAPTOGLOBIN, URICACID in the last 168 hours. ABG (Arterial Blood Gas) Recent Labs 01/11/23 1510 01/11/23 1350 LACTATEVEN 6.2* 6.9* VBG (Venous Blood Gas) Recent Labs 01/11/23 1510 01/11/23 1350 LACTATEVEN 6.2* 6.9* Mixed Venous Sat No results for input(s): [id number] in the last 168 hours. Microbiology: Microbiology Results (Last 30 days) No results found for the last 720 hours. Imaging: CT Abdomen & Pelvis wwo Contrast (GI BLEED) Result Date: 01/11/2023 EXAMINATION: CT ABDOMEN AND PELVIS WWO CONTRAST (GI BLEED) CLINICAL HISTORY: Coffee-ground emesis and dark stool. Tachycardic and hypotensive TECHNIQUE: Helical CT of the abdomen and pelvis before and after the intravenous administration of contrast utilizing GI bleed protocol. Administered 125.0 ml of OMNIPAQUE 350.00 mg/ml. Oral contrast was not administered. COMPARISON: None FINDINGS: The bowel is nondilated. There is diffuse small bowel and large bowel mucosal hyperenhancement without evidence of active hemorrhage. There are paraesophageal varices and there is recannulization of the umbilical vein Large volume ascites. The liver, spleen, adrenal glands, and pancreas are normal. Sludge layering within the gallbladder. Nonspecific gallbladder wall thickening. Simple cyst projecting in the left mid pole kidney. Kidneys are otherwise unremarkable. Abdominal aorta is normal in caliber and patent. Portal vein is patent. No free air. No pneumatosis. Review of bone windows is unremarkable. 1. No evidence of active hemorrhage during the scan. 2. Large volume ascites with evidence of portal hypertension. 3. Shock bowel. 4. Nonspecific gallbladder wall thickening in the setting of ascites, which may be secondary. Thank you for letting us participate in the care of this patient. If you are a health care provider and have any questions regarding this report, please contact the number below. For patients who have questions please contact the health nurse wound care that requested yourimaging first. Assessment & Plan: Monisha Argueta is a 48 y.o. male w/ PMHx AUD, alcoholic cirrhosis, tobacco use disorder, esophagealvarices, presenting to [facility] – [place] with coffee ground emesis and melena now s/p EGD revealing likely esophagitis/gastropathy Likely source of GI bleed is visualized esophagitis/gastropathy. No sign of active bleeding from small varix, so likely not variceal hemorrhage. Will admit patient to MICU for monitoring as he is still very tachycardic and slightly hypotensive. He needs additional volume resuscitation with blood and crystalloid. Will give him another liter now. Since this is not a variceal hemorrhage, we will stop the octreotide drip, but continue the ceftriaxone for SBP prophylaxis. NEURO: #History of back encephalopathy - Continue home lactulose 3 times daily CV: #Hemorrhagic shock - Status post 2 units PRBC - 1 L LR bolus now - Follow-up H&H every 4 hours PULMONARY: GÉNESIS RENAL: Daily BMP GI: #Upper GI bleed #Concern for lower GI bleed - Status post 2 units. - status post EGD - GI planning for colonoscopy at some point this admission - Monitor for signs of bleeding - Clear liquid diet tonight -Ceftriaxone for SBP prophylaxis #GI prophylaxis -Pantoprazole IV twice daily #Nutrition -No diet orders on file ENDOCRINE: GÉNESIS ID: #Concern for SBP -SBP prophylaxis 1 g ceftriaxone daily HEME: #Acute blood loss anemia -Transfusions as above - Every 4 hour H&H #Routine: Diet: No diet orders on file DVT Prophylaxis: GI Prophylaxis: Code Status: No Order Dispo: Pending clinical course Rehan Kelly MD Internal Medicine, PGY-@ Blue Team @PAGER@ 01/11/23 6:45 PM * Monica Kuo MD - 01/11/2023 4:33 PM EST Gastroenterology and Hepatology Pre-Procedure History and Physical Exam Procedure: EGD: Indication: coffee-ground emesis Patient Active Problem List Diagnosis Code Alcoholic cirrhosis of liver with ascites K70.31 EXAM: HEENT: Airway examined, oropharynx clear Mallampati Score: II (soft palate, uvula, fauces visible) LUNGS: Clear to auscultation HEART: Regular rate and rhythm, normal S1, S2 ABDOMEN: Normal bowel sounds, soft, non tender, non distended A/P Proceed with the planned endoscopic procedure. ASA 3 - Patient with moderate systemic disease with functional limitations Sedation Plan: anesthesia Risks and benefits of the procedure explained to the patient. Consent signed. Please see separate consult note for further details. documented in this encounter Procedure Notes * Angy Spivey MD - 01/12/2023 4:27 PM EST Paracentesis Procedure Note Indication: Diagnosis of Ascites: evaluate for cirrhotic etiology. Therapy: abdominal pain. Procedure Diagnosis: Cirrhotic Ascites Location of Procedure: Critical Care Risks and Benefits: The risks and benefits of this procedure were reviewed and informed consent wasobtained. Time Out: Prior to the start of the procedure, the patient's identity, intended procedure, site/side, correct patient positioning and presence of the site caitlyn was confirmed as applicable. The medical history and chart were reviewed to rule out potential contraindications to the planned procedure. Procedure Technique: Skin was prepped with betadine and chlorhexidine. Procedure Details: A 14 gauge Eladio catheter was inserted into LLQ peritoneal space. Once the cavity was accessed, the needle was removed from the catheter and was connected to suction for complete drainage. After the fluid was completely removed, the catheter was removed and pressure dressing wasplaced over the site. 50 g of 25 % Albumin IV was given. There was 1 attempt Findings: Ascitic fluid returned was serosanguinous. Volume removed was 1.5 L. Specimen was sent for the following test(s): Cell Count Albumin Protein Post Procedure/Complications: No procedure complications. Patient tolerated procedure well. Impression and Plan: Impression: Successful paracentesis Plan: await results. Associated attestation - Curtis Weinstein MD - 01/12/2023 6:40 PM EST I was the attending physician supervising the resident in the above care and I was present with theresident for the batres component(s) of the procedure and remained immediately available throughout the remainder. This is a duplicate procedure note from note created by Dr. Serrato earlier on the same day. Paracentesis was completed with return of straw-colored fluid (not serosanguinous as noted in this procedure note) using a Ramsey needle. There were no apparent complications. * Florinda Serrato MD - 01/12/2023 3:49 PM ESTProcedure(s): PARACENTESIS Pre-Procedure Diagnose(s): Ascites due to alcoholic cirrhosis Post-Procedure Diagnose(s): Ascites due to alcoholic cirrhosis Images from the original note were not included. PULMONARY AND CRITICAL CARE MEDICINE PATIENT NAME: Monisha Argueta : 1975 MEDICAL RECORD: [id number] DATE OF SERVICE: 01/12/2023 PARACENTESIS PHYSICIAN NOTE Time: 3:50 PM Indication: Ascites Consent: Yes Code Status: Attempt Cardiopulmonary Resuscitation - Inpatient A time-out was completed verifying correct patient, procedure, site, positioning, and special equipment if applicable. Hands washed and sterile gloves used. The patient's L left side was prepped and draped in a sterile manner after the appropriate infiltration level was confirmed by ultrasound. 1% lidocaine was used anesthetize the surrounding skin. A finder needle was then used to locate fluid and clear yellow fluid was obtained. The paracentesis catheter was then threaded along Z tract without difficulty. The patient had 1500 mL of clear yellow fluid removed. Needle withdrawn and bandage applied. The fluid will be sent for cultures and cell count. Estimated Blood Loss: 0 mL The patient tolerated the procedure well and there were no complications. Procedure preformed by Kayla Spivey MD. I was present and supervised entire procedure. Florinda Serrato MD Pulmonary and Critical Care PGY-4 Pager [phone] 01/12/2023 3:51 PM Associated attestation - Curtis Weinstein MD - 01/12/2023 6:36 PM EST I was the attending physician supervising the resident in the above care and I was present with theresident for the batres component(s) of the procedure and remained immediately available throughout the remainder. documented in this encounter ED Notes * Maddie Buckley RN - 01/11/2023 5:20 PM EST Quarter Backer by the bedside to take pt for EGD. * Maddie Buckley RN - 01/11/2023 4:19 PM EST GI and ICU team by the bedside. * Jed Fuller APRN - 01/11/2023 1:40 PM EST ED Provider Note HPI: Monisha Argueta is a 48 y.o. male with past medical history of chronic alcoholism, alcoholic cirrhosis with ascites, esophageal varices with subjective history of banding, and others presents to ED AOx4 complaining of non- intractable nausea, vomiting, diarrhea, and weakness that acutely worsening over the last 24 hours. The patient describes his emesis as black and coffee-ground in nature, similarto previous upper GI bleed. The patient describes his diarrhea as black and tarry. Does admit to generalized abdominal pain but denies any fevers, chills, body aches, etc. The patient was previously admitted in [place] last month for bleeding varices. The patient states he has not had any alcohol since that time and has no signs of withdrawal. History obtained from patient ROS as per HPI Vitals: ED Triage Vitals BP: 96/60 [01/11/23 1256] Heart Rate: (!) 127 [01/11/23 1254] Resp: 20 [01/11/23 125] Temp: 36.4 ??C (97.5 ??F) [01/11/23 1254] Temp src: Temporal [01/11/23 125] SpO2: 98 % [01/11/23 125] O2 Device: n/a O2 Flow Rate (L/min): n/a Physical Exam Vitals and nursing note reviewed. Constitutional: General: He is not in acute distress. Appearance: Normal appearance. He is normal weight. He is ill-appearing and toxic-appearing. He is not diaphoretic. HENT: Head: Normocephalic and atraumatic. Right Ear: External ear normal. Left Ear: External ear normal. Nose: Nose normal. No congestion or rhinorrhea. Mouth/Throat: Mouth: Mucous membranes are moist. Pharynx: Oropharynx is clear. No oropharyngeal exudate or posterior oropharyngeal erythema. Eyes: General: Scleral icterus present. Right eye: No discharge. Left eye: No discharge. Extraocular Movements: Extraocular movements intact. Conjunctiva/sclera: Conjunctivae normal. Pupils: Pupils are equal, round, and reactive to light. Cardiovascular: Rate and Rhythm: Regular rhythm. Tachycardia present. Pulses: Normal pulses. Radial pulses are 2+ on the right side and 2+ on the left side. Dorsalis pedis pulses are 2+ on the right side and 2+ on the left side. Posterior tibial pulses are 2+ on the right side and 2+ on the left side. Heart sounds: Normal heart sounds. No murmur heard. No friction rub. No gallop. Pulmonary: Effort: Pulmonary effort is normal. No respiratory distress. Breath sounds: Normal breath sounds. No wheezing or rhonchi. Abdominal: General: Abdomen is protuberant. There is distension. There are no signs of injury. Palpations: Abdomen is soft. There is no hepatomegaly or splenomegaly. Tenderness: There is generalized abdominal tenderness. There is no right CVA tenderness, left CVA tenderness, guarding or rebound. Negative signs include Oswald's sign. Musculoskeletal: General: No swelling, tenderness, deformity or signs of injury. Normal range of motion. Cervical back: Normal range of motion. Right lower leg: No edema. Left lower leg: No edema. Skin: General: Skin is warm and dry. Capillary Refill: Capillary refill takes less than 2 seconds. Coloration: Skin is jaundiced and pale. Neurological: General: No focal deficit present. Mental Status: He is alert and oriented to person, place, and time. GCS: GCS eye subscore is 4. GCS verbal subscore is 5. GCS motor subscore is 6. Psychiatric: Mood and Affect: Mood normal. Behavior: Behavior normal. Thought Content: Thought content normal. Judgment: Judgment normal. CT Abdomen & Pelvis wwo Contrast (GI BLEED) (Results Pending) ED Course as of 01/11/23 1621 e Jan 11, 2023 1354 Lactic acid 6.93 1355 Indication for EKG is acute GI bleeding EKG shows sinus tachycardia at a rate of [address] elevations or depression seen. QT 370, QTc 520. Normal axis. No previous to compare 1355 GI paged [phone] Discussed case with GI who would like the patient on Sandostatin and Rocephin. 1425 CBC shows a leukocytosis of 10.2 and hemoglobin of 7.5. Platelets 245 1443 CMP shows total bilirubin of 8.2, anion gap of 19, and chloride of [address] abdomen pelvis bleeding protocol shows 1. No evidence of active hemorrhage during the scan. 2. Large volume ascites with evidence of portal hypertension. 3. Shock bowel. 4. Nonspecific gallbladder wall thickening in the setting of ascites, which may be secondary. 1553 Discussed case with gastroenterology who would like to take patient emergently for EGD. Was also discussed with general surgery for shock bowel who is aware and will see patient Critical care contacted [phone] Discussed case with critical care accepts patient 1612 ETA for EGD is within 30 minutes 1619 Hemoglobin 6.1, second unit of blood ordered Procedures Assessment and Plan: 48 y.o. male with past medical history of chronic alcoholism, alcoholic cirrhosis with ascites, esophageal varices with subjective history of banding, and others presents to ED AOx4 complaining of non-intractable nausea, vomiting, diarrhea, and weakness that acutely worsening over the last 24 hours. The patient describes his emesis as black and coffee-ground in nature, similar to previous upper GI bleed. The patient describes his diarrhea as black and tarry. Does admit to generalized abdominal pain but denies any fevers, chills, body aches, etc. The patient was previously admitted in [place] last month for bleeding varices. The patient states he has not had any alcohol since that time and has no signs of withdrawal. On exam, the patient is toxic, ill-appearing, and jaundice. Patient is tachycardic and hypotensive.Patient does have a distended abdomen with generalized tenderness to palpation without guarding or rebound tenderness. The patient actively vomiting during physical exam with noted coffee-ground emesis. The patient did have black diarrhea noted in toilet. Blood work significant for leukocytosis of 10.2, hemoglobin of 7.5, and lactic acid of 6.9. Total bilirubin 8.2 and an anion gap of 19 CT abdomen pelvis bleeding protocol shows 1. No evidence of active hemorrhage during the scan. 2. Large volume ascites with evidence of portal hypertension. 3. Shock bowel. 4. Nonspecific gallbladder wall thickening in the setting of ascites, which may be secondary. Discussed case with gastroenterology who would like the patient started on Protonix, octreotide bolus and drip, and Rocephin. I have already started the patient on resuscitation with 2 L of normal saline and 1 unit type and screen is ordered and in process. Patient will go for urgent EGD by gastroenterology Discussed case with general surgery regarding shock bowel who recommends source control and resuscitation as we are currently doing at this time. Discussed case with critical care medicine who accepts patient to MICU Did this case involve critical care? Yes CRITICAL CARE DOCUMENTATION: Is there a high potential of sudden, clinically significant, or life threatening deterioration? Yes Are there life and/or organ supporting interventions that require frequent personal assessment and manipulation or support to treat/prevent vital organ failure/deterioration? yes I personally performed 45 minutes of aggregate critical care time exclusive of procedures and teaching during this emergency department visit. This includes time spent during direct patient evaluation and reassessment, interpreting diagnostic tests, directing life and/or organ supporting interventions, and documentation. The visit findings, diagnosis, and care plan were discussed with the patient. Disclaimer: Parts of this note has been produced using voice recognition software and may inherently contain errors in snack foods mixer operator. Some sounds may be transcribed incorrectly by the voice recognition software and therefore the reader is urged to use caution when interpreting this document. Jed Fuller APRN 01/11/23 1655 documented in this encounter Miscellaneous Notes * Plan of Care - Anabella Ellis RN - 01/13/2023 3:59 PM EST OUTCOME EVALUATION NOTE: OUTCOME SUMMARY: Patient stable throughout shift. Expressed concerns about other family members receiving medical attention and needing to be with them to support them. Has decided to leave AMA. PLAN MOVING FORWARD: Pt. Leaving AMA Follow up with GI INDIVIDUALIZED FALL PREVENTION INTERVENTIONS: Patient-specific fall risk factors per assessment: [current deficits]: lines, secondary dx Assistance [level of assistance required for transfers and ambulation]: 2A Supervision [direct monitoring required during toileting and ADLs]: All alarms set and audible, safety checks, call garcia within reach, bed in low position Surveillance [continuous indirect monitoring]: Safety round checks q1hr Patient-specific fall prevention interventions for sensory deficits provided, if applicable: [X] Yes CARE PLAN GOAL OUTCOME EVALUATION: Problem: Adult Inpatient Plan of Care Goal: Plan of Care Review Outcome: Ongoing (Interventions Implemented as Appropriate) Goal: Patient-Specific Goal (Individualized) Outcome: Ongoing (Interventions Implemented as Appropriate) Goal: Absence of Hospital-Acquired Illness or Injury Outcome: Ongoing (Interventions Implemented as Appropriate) Goal: Optimal Comfort and Wellbeing Outcome: Ongoing (Interventions Implemented as Appropriate) Goal: Readiness for Transition of Care Outcome: Ongoing (Interventions Implemented as Appropriate) Problem: Adjustment to Illness (Gastrointestinal Bleeding) Goal: Optimal Coping with Acute Illness Outcome: Ongoing (Interventions Implemented as Appropriate) Problem: Bleeding (Gastrointestinal Bleeding) Goal: Hemostasis Outcome: Ongoing (Interventions Implemented as Appropriate) Problem: Fall Injury Risk Goal: Absence of Fall and Fall-Related Injury Outcome: Ongoing (Interventions Implemented as Appropriate) Problem: Adjustment to Illness (Delirium) Goal: Optimal Coping Outcome: Outcome (s) achieved Problem: Altered Behavior (Delirium) Goal: Improved Behavioral Control Outcome: Outcome (s) achieved Problem: Attention and Thought Clarity Impairment (Delirium) Goal: Improved Attention and Thought Clarity Outcome: Outcome (s) achieved Problem: Sleep Disturbance (Delirium) Goal: Improved Sleep Outcome: Outcome (s) achieved * Consult Note - Sheela Welch - 01/13/2023 3:44 PM EST BIT Evaluation Referral source: Admission screening Reason for referral: Other: Follow up Audit score Interventions delivered: Patient declined pamphlet alcohol and your health * Plan of Care - Barbara Mitchell RN - 01/13/2023 6:40 AM EST Patient slept through most of the night. VSS. H&H dropped to 6.8/19. 1 unit RBC transfused. Continue with q12h H&H- next at 1300. Plans for abdominal US today- NPO since midnight. Problem: Adult Inpatient Plan of Care Goal: Plan of Care Review Outcome: Ongoing (Interventions Implemented as Appropriate) Goal: Patient-Specific Goal (Individualized) Outcome: Ongoing (Interventions Implemented as Appropriate) Goal: Absence of Hospital-Acquired Illness or Injury Outcome: Ongoing (Interventions Implemented as Appropriate) Goal: Optimal Comfort and Wellbeing Outcome: Ongoing (Interventions Implemented as Appropriate) Goal: Readiness for Transition of Care Outcome: Ongoing (Interventions Implemented as Appropriate) Problem: Adjustment to Illness (Gastrointestinal Bleeding) Goal: Optimal Coping with Acute Illness Outcome: Ongoing (Interventions Implemented as Appropriate) Problem: Bleeding (Gastrointestinal Bleeding) Goal: Hemostasis Outcome: Ongoing (Interventions Implemented as Appropriate) Problem: Fall Injury Risk Goal: Absence of Fall and Fall-Related Injury Outcome: Ongoing (Interventions Implemented as Appropriate) * Plan of Care - Mary Rodrigues RN - 01/12/2023 6:00 PM EST OUTCOME EVALUATION NOTE: OUTCOME SUMMARY: AOx4, afebrile, NSR-ST 90-110s, on RA. Pt OOB, 1x standby assist. Small grupo UOP + unmeasured urine occurrences (x3) and stool occurrences (X3). Per patient, pt had 1 loose/liquid and 2 soft formed dark stool with no bright red blood seen. Pt cut elena area with urinal, bleeding stopped, no dressing. Elevated 1200 lactate, team aware, labs and blood cultures sent, 1600 lactate down trending. 1520L paracentesis at the bedside, about 1.5L yellow-tinged serous fluid drained, labs sent. Paracentesis site dressed with gauze and tege, dressing in tact with no output. Downgraded. PLAN MOVING FORWARD: Q4 FS Q12 H&H Cardiac diet NPO at midnight for ultrasound Intake/Output Summary (Last 24 hours) at 01/12/2023 1803 Last data filed at 01/12/2023 1800 Gross per 24 hour Intake 3359.75 ml Output 355 ml Net 3004.75 ml INDIVIDUALIZED FALL PREVENTION INTERVENTIONS: Patient-specific fall risk factors per assessment: [current deficits]: IVs, SCDs Assistance [level of assistance required for transfers and ambulation]: 1x SBA Supervision [direct monitoring required during toileting and ADLs]: 1x SBA Surveillance [continuous indirect monitoring]: ICU Monitoring Patient-specific fall prevention interventions for sensory deficits provided, if applicable: [X] Yes CARE PLAN GOAL OUTCOME EVALUATION: Problem: Adult Inpatient Plan of Care Goal: Plan of Care Review Outcome: Ongoing (Interventions Implemented as Appropriate) Goal: Patient-Specific Goal (Individualized) Outcome: Ongoing (Interventions Implemented as Appropriate) Goal: Absence of Hospital-Acquired Illness or Injury Outcome: Ongoing (Interventions Implemented as Appropriate) Goal: Optimal Comfort and Wellbeing Outcome: Ongoing (Interventions Implemented as Appropriate) Goal: Readiness for Transition of Care Outcome: Ongoing (Interventions Implemented as Appropriate) Problem: Adjustment to Illness (Gastrointestinal Bleeding) Goal: Optimal Coping with Acute Illness Outcome: Ongoing (Interventions Implemented as Appropriate) Problem: Bleeding (Gastrointestinal Bleeding) Goal: Hemostasis Outcome: Ongoing (Interventions Implemented as Appropriate) Problem: Fall Injury Risk Goal: Absence of Fall and Fall-Related Injury Outcome: Ongoing (Interventions Implemented as Appropriate) * Initial Assessments - Josemanuel Moran MSW - 01/12/2023 2:57 PM EST Office of Care Management Initial Assessment JONNY Perdomo reviewed record and discussed patient with Care Team. Source of Information: Team, bedside nurse, medical record, and JONNY/Josemanuel Moran introduced self/reviewed role: services accepted. Admitted From: Home Reason for Hospitalization: GIB Covid Vaccination Status: (Pt states he has had covid vax) Last COVID test: Pt does not know when Past medical History: No past medical history on file. Hospitalizations Within the Past 30 Days: no previous admission in last 30 days Current Decision-Making Capacity: Self If AD's have not been completed the following surrogate, brother Luiz Argueta would be surrogate decision maker per [place] surrogate decision making law. (Only good for 180 days) Luiz Montes [phone] (pt's brother) Advance Care Planning: Attempt Cardiopulmonary Resuscitation - Inpatient <no information> -Advanced Directive: Other (Pt states he has some information at home which he thinks is his AD.) Current Coping/Education/Information Needs: Friends and family as well as his girlfriend/partner Nereyda Current Functional Ability: unable to assess Functional Status Prior to Admission: Independent Prior ADLs & IADLs: Independent with all ADLs & IADLs Home Environment: Others in the home: significant other. Current Living Arrangements: home/apartment/condo. Accessibility Concerns:Pt states he lives in single fam home with his gf/Nereyda. The home has 4 floors with 3 steps at the entrance. Pt stays on the fourth floor where his bedroom/bath are located. Pt states he has know problem gettting to the fourth floor.. Resource / Environmental Concerns: Resource/Environmental Concerns: none Home Accessibility Concerns: stairs to access bedroom or bathroom, stairs to enter home Current DME: none Home Address confirmed as: [address] [address] Social & Family Supports: All names listed below confirmed with patient as current and correct Extended Emergency Contact Information Primary Emergency Contact: Nereyda Bowen Mobile Relation: Friend Current Care Provided by: self, spouse/significant other Provides Primary Care For: significant other Caregiver if needed: unable to assess Quality of Family relationships: involved, supportive Community Resources being provided currently: none Behavioral Health History: Pt states none. Past Hx of alchohol abuse- pt said he has been sober since Nov 2022. Substance Use/Abuse confirmed: Social History Tobacco Use Smoking Status Every Day Packs/day: 1.50 Years: 30.00 Additional pack years: 0.00 Total pack years: 45.00 Types: Cigarettes Smokeless Tobacco Never In the past year have you used an illegal drug or used a prescription medication for non-medical reasons?: No 0 No problems reported 1-2 Low level 3-5 Moderate level 6-8 Substantial level 9- 10 Severe level In the past year have you had 5 or more drinks a day containing alcohol?: Yes Audit Score (Male): 3 0 to 7 points: Low risk 8 to 15 points: Medium risk 16 to 19 points: High risk 20 to 40 points: Addiction likely Other Pertinent/Service Specific Information: Pt states he has been sober from alcohol since Nov 2022. No outpatient support. Health/Prescription Coverage: Primary Insurance: N/A Payor: / Secondary Insurance: N/A ONLY if patient has Medicare A&B - Does this patient have secondary insurance?: No (Pt is uninsured) ; Why not?: Pt uninsured. Pt stated he has someone helping him with paperwork to apply for [place] medicaid Prescription Coverage: No Preferred Pharmacy: No Pharmacies Listed [place] Status: Patient is a : No Primary Care Provider confirmed: No primary care provider on file. None Patient/Caregiver Goals of Treatment: Pt plans to return home at time of dc Potential Needs for Transition of Care: outpatient care (Pt does not have a PCP at this time.) Agency Referrals: N/A Transportation: no concerns Transportation Anticipated: family or friend will provide Concerns to be Addressed: denies needs/concerns at this time, coping/stress, mental health, uninsured, substance/tobacco abuse/use (Pt smokes 1-1.5 packs of cig x day. Pt also smokes recreational marijuana. No alcohol since Nov 2022) Assessment: Patient is admitted to [facility] service for Acute GI Bleed. Plan: Return home when medically safe. Pt is a 48 year old male admitted for GI Bleed admitted to [facility]. Pt does not have an AD on file. Surrogate noted with his next of kin- brother Luiz Argueta [phone]. Pt lives with his partner/Nereyda Bowen. Pt resides in [place], [place]. Pt lives in a four level home with 3 steps at the entrance of the home. Pt stays on the fourth floor where his bedroom and bathroom are located. Pt stateshe has no issues getting to the fourth floor. Pt independent with IADL's and transfers. No DME. Pt is currently uninsured and has no PCP. C++ PROFESSOR will request consult from [place] regarding insurance. C++ PROFESSOR has provided PCP information to pt. Pt pharmacy is [facility] in [place]. Hx of Alcohol abuse- pt states he has been sober since Nov. Pt smoke a pack or pack and a half of cig x day. He also smokes marijuana recreationally. He does not receive any outpatient services at this time. Pt relies of family, friends and AA if he needs support. Family and partner appearto be involved and supportive of pt needs. Pt plans to return home at time of dc. Pt's family member or Nereyda/partner will transport pt home. A member of the Care Management team will continue to monitor progress, follow for continuity of care and assist with transition of care planning. Josemanuel Moran/JONNY Phone [phone] * Consult Note - Grady Santos MD - 01/12/2023 9:32 AM EST Acute Care Surgery Inpatient Consult Progress Note Admission Date: 01/11/2023 Primary Team: ARISTIDES Strange ID: Monisha Argueta is a 48 y.o. male with a PMH of chronic alcoholism, alcoholic cirrhosis with ascites, esophageal varices who endorses 24 hours of abdominal pain, nausea and vomiting for which General Surgery has been consulted for imaging findings of Shock Bowel. Subjective Interval Events/Subjective: - GI performed EGD w/ findings of grade D esophagitis w/ oozing, Grade I esophageal varices, portalhypertensive gastropathy w/ diffuse oozing with the gastropathy and reflux esophagtitis as the presumed source of bleeding per GI - s/p 2u of pRBCs hgb 7.6 most recently w/ initial hgb on admission of 7.5 - AF, continued tachycardia without any need for vasoactive medications, RA - Continued melana overnight per RN - Patient ambulating around room w/ assistance - Tolerated clear liquids without any nausea or abdominal pain - GI planning on performing colonoscopy this admission given history of hematochezia Objective Vitals: Last Value Range last 24 hrs Temperature Temp: 37 ??C (98.6 ??F) Temp: [36.4 ??C (97.5 ??F)-37.6 ??C (99.7 ??F)] Heart Rate Heart Rate: (!) 106 Heart Rate from SpO2: (S) (!) 106 bpm (Team aware of ST) Heart Rate: [106-134] Heart Rate From SP02 Min: 106 bpm Max: 123 bpm Blood Pressure BP: 114/60 BP: (81-146)/(53-98) BP (Arterial Line): -- MAP MAP (NBP): [68 mmHg-109 mmHg] Respiratory Rate Resp: 21 Resp: [16-28] SpO2 SpO2: 93 % SpO2: [90 %-100 %] O2 Device O2 Device: None (Room air) Intake/Output: 01/11 701 - 01/12 700 In: 3588.8 [P.O.:700; I.V.:1700] Out: 205 [Urine:200] Physical Exam: GEN: NAD, tangential HEENT: normocephalic, atraumatic CHEST: Tachypneic RA CV: tachycardic, well perfused ABD: soft, distended w/ shifting dullness, non-tender EXTR: moving all extremities spontaneously, no edema NEURO: awake and alert, grossly intact, nonfocal, follows commands Labs: Recent Labs 01/12/23 0745 01/12/23 0442 01/12/23 0208 01/11/23 2010 01/11/23 1559 01/11/23 1340 WBC -- -- 10.5* -- -- 10.2* HGB 7.6* 7.3* 7.6* 7.5* 6.1* 7.5* HCT 21.6* 21.2* 21.7* 21.6* 17.6* 21.6* PLATELET -- -- 143* -- -- 245 PT -- -- 19.1* -- -- 20.6* INR -- -- 1.7 -- -- 1.8 PTT -- -- 35 -- -- 38* Recent Labs 01/12/23 0208 01/11/23 1340 NA 128* 135 K 3.5 3.6 CL 94* 93* CO2 22 23 BUN 28* 35* CREATININE 0.56* 0.51* GLUCOSE 133 157 CALCIUM 7.9* 8.8 MAGNESIUM 0.67* 0.74 PHOS 3.3 4.0 Recent Labs 01/11/23 1340 PROT 5.6* ALBUMIN 2.9* BILITOT 8.2* ALKPHOS 88 AST 34 ALT 12 Recent Labs 01/12/23 0745 01/12/23 0442 01/12/23 0118 01/11/23 1510 01/11/23 1350 LACTATEVEN 2.2 2.6* 4.7* 6.2* 6.9* Studies: EGD 01/11/23 Esophagogastric landmarks identified. - 4 cm hiatal hernia. - LA Grade D reflux esophagitis with oozing. - Grade I esophageal varices. Completely flattened with air insufflation and no stigmata of variceal bleeding. - Portal hypertensive gastropathy (PHG) with diffuse oozing. - PHG and reflux esophagitis are the presumed source of coffee ground emesis. - Normal examined duodenum. Impression and Recommendations: Monisha Argueta is a 48 y.o. male with a PMH of chronic alcoholism, alcoholic cirrhosis with ascites, esophageal varices who endorses 24 hours of abdominal pain, nausea and vomiting for which General Surgery has been consulted for imaging findings of Shock Bowel. He is now s/p EGD w/ the findings noted below. Reassuringly, he has remained hemodynamically normalapart from tachycardia. He denies any abdominal pain, nausea or vomiting even with the consumption of clears. If he continues to bleed and source control is not able to be obtained, management would depend based on location of a bleed and would recommend exhaustion of non-surgical methods but we will be available to help if needed. As for his shock bowel, we expect that it will self resolve with his normalized lactate and fluid resuscitation. No contraindication for a diet from general surgery perspective given his benign abdominal exam but will defer to primary. Should his abdominal pain begin again and his lactate begin to rise again in the setting of hypoperfusion, there exists the concern for progression from shock bowel to ischemia however in the setting of a benign abdominal exam, this is not an acute concern that this time. Recommendations: - No acute surgical intervention - If worsening abdominal exam or uncontrolled bleeding, please reach out to general surgery at [phone] - DVT ppx per primary - Diet per primary Above recommendations discussed with primary team. All plans formulated in discussion with and directed by attending surgeon Dr. Santos. Thank you for this consult. If you have any questions, please page [phone]. Consult service will sign-off. Edith Stewart MD 01/12/2023 Acute Care Surgery Service [phone] * Plan of Care - Barbara Mitchell RN - 01/12/2023 4:58 AM EST Patient came to ER with coffee ground emesis and melena. Went for EGD and came to ICU for monitoring. 2 RBC given for hgb 6.1. Current H&H 7.3/21.2. Lactate down to 2.6. Trending lactate and H&H q4h. Up with assistance to bathroom; 2 black liquid stools overnight, no emesis. Clear liquid diet ordered. Barbara Mitchell RN 6:20 AM Problem: Adult Inpatient Plan of Care Goal: Plan of Care Review Outcome: Ongoing (Interventions Implemented as Appropriate) Goal: Patient-Specific Goal (Individualized) Outcome: Ongoing (Interventions Implemented as Appropriate) Goal: Absence of Hospital-Acquired Illness or Injury Outcome: Ongoing (Interventions Implemented as Appropriate) Goal: Optimal Comfort and Wellbeing Outcome: Ongoing (Interventions Implemented as Appropriate) Goal: Readiness for Transition of Care Outcome: Ongoing (Interventions Implemented as Appropriate) Problem: Adjustment to Illness (Gastrointestinal Bleeding) Goal: Optimal Coping with Acute Illness Outcome: Ongoing (Interventions Implemented as Appropriate) Problem: Bleeding (Gastrointestinal Bleeding) Goal: Hemostasis Outcome: Ongoing (Interventions Implemented as Appropriate) * Consult Note - Grady Santos MD - 01/11/2023 5:03 PM EST Acute Care Surgery ED Consult Note Patient Name: Monisha Argueta MR#: [id number] : 1975 Admission Date: 01/11/2023 Primary Team: LUC Consult Requested by: No att. providers found Reason for Consult: Shock Bowel Time Paged for Consult: 1640 Time of Callback: 1643 Time of Assessment: 1650 History of Present Illness: Monisha Argueta is a 48 y.o. male with a PMH of chronic alcoholism, alcoholic cirrhosis with ascites, esophageal varices who endorses 24 hours of abdominal pain, nausea and vomiting for which General Surgery has been consulted for imaging findings of Shock Bowel. Patient endorses that over the last 24 hours he has had a combination of abdominal pain, nausea, vomiting and black tarry schools. He endorses that the pain was unrelenting over late and only intermittently became easier to deal with on his way to the hospital today. He does have a history of a previous GI bleed and he endorses that his emesis was coffee-ground and similar in nature compared to his previous episode. He endorses chills but denies any chest pain or difficulty breathing. Obtaininghistory was tangential and difficult at times. Denies any recent alcohol use but endorses 1.5 pack/day smoking history. Per ED he had an episode of coffee-ground emesis while in the ED. Vital signs are notable for tachycardia. He has been given 2 L of IV fluids while in the ED with response of his blood pressure and he has not required any vasoactive medications. Hgb 6.1 from 7.5 2 hours prior. Lactate of 6.2. T. bili elevated to 8.2. Given these findings GI was urgently consulted and is proceeding with an emergent EGD for hopeful source control. Plans to admit to the MICU postop. Significant other is at bedside and endorses that she is his decision maker if he is unable to makedecisions. PMH: No past medical history on file. Patient Active Problem List Diagnosis Code Alcoholic cirrhosis of liver with ascites K70.31 PSH: No past surgical history on file. Home Medications: No current facility-administered medications on file prior to encounter. No current outpatient medications on file prior to encounter. Allergies No Known Allergies Family History: No family history on file. Denies history of reactions to anesthesia. Social History: Review of Systems: As stated above, otherwise ten system review negative Vitals: Last Value Range last 24 hrs Temperature Temp: 37 ??C (98.6 ??F) Temp: [36.4 ??C (97.5 ??F)-37 ??C (98.6 ??F)] Heart Rate Heart Rate: (!) 120 Heart Rate from SpO2: (!) 118 bpm Heart Rate: [112-132] Heart Rate From SP02 Min: 118 bpm Max: 122 bpm Blood Pressure BP: 106/67 BP: (96-121)/(60-90) BP (Arterial Line): -- Respiratory Rate Resp: 23 Resp: [16-24] SpO2 SpO2: 99 % SpO2: [94 %-100 %] O2 Device O2 Device: None (Room air) Weight/BMI Weight: 72.6 kg (160 lb) There is no height or weight on file to calculate BMI. Intake/Output Summary (Last 24 hours) at 01/11/2023 1704 Last data filed at 01/11/2023 1540 Gross per 24 hour Intake 350 ml Output -- Net 350 ml No diet orders on file Physical Exam: GEN: NAD, tangential HEENT: normocephalic, atraumatic CHEST: Tachypneic RA CV: tachycardic, well perfused ABD: soft, distended w/ shifting dullness, minimally tender in epigastric area EXTR: moving all extremities spontaneously, no edema NEURO: awake and alert, grossly intact, nonfocal, follows commands Data Reviewed: Labs: Recent Labs 01/11/23 1559 01/11/23 1340 WBC -- 10.2* HGB 6.1* 7.5* HCT 17.6* 21.6* PLATELET -- 245 PT -- 20.6* INR -- 1.8 PTT -- 38* Recent Labs 01/11/23 1340 NA 135 K 3.6 CL 93* CO2 23 BUN 35* CREATININE 0.51* GLUCOSE 157 CALCIUM 8.8 MAGNESIUM 0.74 PHOS 4.0 Recent Labs 01/11/23 1340 PROT 5.6* ALBUMIN 2.9* BILITOT 8.2* ALKPHOS 88 AST 34 ALT 12 Recent Labs 01/11/23 1510 01/11/23 1350 LACTATEVEN 6.2* 6.9* No results for input(s): PHART, DMP0EMH, PO2ART, MWX3CZG in the last 72 hours. Studies: The bowel is nondilated. There is diffuse small bowel and large bowel mucosal hyperenhancement without evidence of active hemorrhage. There are araesophageal varices and there is recannulization of the umbilical vein Large volume ascites. The liver, spleen, adrenal glands, and pancreas are normal. Sludge layering within the gallbladder.Nonspecific gallbladder wall thickening. Simple cyst projecting in the left mid pole kidney. Kidneys are otherwise unremarkable. Abdominal aorta is normal in caliber and patent. Portal vein is patent. No free air. No pneumatosis. Impression and Recommendations: Monisha Argueta is a 48 y.o. male with a PMH of chronic alcoholism, alcoholic cirrhosis with ascites, esophageal varices who endorses 24 hours of abdominal pain, nausea and vomiting for which General Surgery has been consulted for imaging findings of Shock Bowel. At this time his abdominal exam is reassuring and CT imaging demonstrates no findings of pneumatosis which would warrant urgent surgical intervention. Agree with GI proceeding with EGD for source control. For the management of shock bowel would recommend source control from his bleeding, fluid resuscitation as well as normotension. Should his abdominal pain worsen as well as his lactate continue to rise, concern for progressive bowel ischemia would warrant surgical exploration. Recommendations: -Fluid resuscitation -No acute surgical intervention indicated at this time -will await results of EGD/colonoscopy -Serial abdominal exams Above recommendations discussed with primary team. All plans formulated in discussion with and directed by attending surgeon Dr. Santos. Thank you for this consult. If you have any questions, please page [phone]. Consult service will continue to follow. Edith Stewart MD 01/11/2023 ACS Service [phone] I have independently reviewed the relevant laboratory and radiographic studies. I have edited the above note and agree with the details as written. My physical examination confirms the resident's findings. The assessment and plan were formulated in discussion with me at the time of the visit and I agree with them as documented. Grady Santos MD * Consult Note - Monica Kuo MD - 01/11/2023 3:56 PM EST GASTROENTEROLOGY & HEPATOLOGY CONSULTATION Initial Consult Note Requesting Provider: No att. providers found REASON FOR CONSULTATION Coffee-ground emesis, melena HISTORY OF PRESENT ILLNESS Monisha Argueta is a 48 y.o. male with PMH tobacco use disorder (25 pack years, currently smoking) and alcohol use disorder (multiple years of 12+ drinks; last drink 11/23/22), EtOH cirrhosis c/b ascites and recent admission to [facility] (11/25/22- 11/30/22) for upper GI bleed and volume overload who presentswith 1 day of coffee-ground emesis and melena. Patient states that his symptoms started last night.He noted one episode of melena and one episode of coffee-ground emesis last night. When he woke up this morning, he noted another episode of coffee- ground emesis, prompting his presentation to the ED. Since arrival to the ED, patient has had 2 additional episodes of coffee-ground emesis and one episode of melena. He denies any abdominal pain. Denies lightheaded. Reports abdominal distention whichhe states has been stable over the last months since his admission to [facility]. He reports adherence to his medications (omeprazole BID, lasix 40, spironolactone 100mg, lactulose 20 TID) since discharge but states that he ran out of all his meds 1 week ago and since then has not been taking anything. Denies any NSAID use. Denies any recent alcohol use-- endorses that his last drink was on 11/23/22 prior to his [facility] admission in Nov. During pt's [facility] admission in late November 2022 for upper GI bleed, he was found to have grade C esophagitis. He underwent MRCP 12/01/22 for abnormal LFTs which demonstrated non-inflamed gallbladder with layering sludge, no evidence of cholecystitis/cholelithiasis, and cirrhotic liver morphology with sequela of portal hypertension including splenomegaly and moderate ascites. Notable labs 11/27: H. Pylori stool ag was negative. PEth 183 (moderate EtOH use). EGD 11/27/22: LA Grade C (one or more mucosal breaks continuous between tops of 2 or more mucosal folds, less than 75% circumference) esophagitis with stigmata of bleeding was found in the lower third of the esophagus. Diffuse mildly erythematous mucosa without bleeding was found in the gastric antrum. The examined duodenum was normal. He was recommended to take Prilosec (omeprazole) 40 mg PO BID for8 weeks and repeat EGD in 8 weeks to evaluate response to therapy. ROS: 10 systems reviewed and positive for those in HPI, otherwise negative PAST MEDICAL/SURGICAL HISTORY: No past medical history on file. MEDICATIONS pantoprazole 40 mg Intravenous Daily octreotide (SandoSTATIN) (5 mcg/mL) in sodium chloride 0.9% 100 mL infusion 50 mcg/hr (01/11/23 1502) ALLERGIES No Known Allergies SOCIAL HISTORY Social History Socioeconomic History Marital status: Single Spouse name: Not on file Number of children: Not on file Years of education: Not on file Highest education level: Not on file Occupational History Not on file Tobacco Use Smoking status: Not on file Smokeless tobacco: Not on file Substance and Sexual Activity Alcohol use: Not on file Drug use: Not on file Sexual activity: Not on file Other Topics Concern Not on file Social History Narrative Not on file Social Determinants of Health Financial Resource Strain: Not on file Food Insecurity: Not on file Transportation Needs: Not on file Physical Activity: Not on file Intimate Partner Violence: Not on file Housing Stability: Not on file FAMILY HISTORY No family history on file. Vitals: 01/11/23 1530 01/11/23 1540 01/11/23 1545 01/11/23 1600 BP: 105/63 104/83 99/83 108/82 Pulse: (!) 118 (!) 122 (!) 123 (!) 132 Resp: 23 20 Temp: 37 ??C (98.6 ??F) TempSrc: Oral SpO2: 99% 97% 95% 98% Weight: PHYSICAL EXAM GENERAL: No acute distress, alert and oriented to person, place, month and year, speech was slurred HEENT: AT/NC, sclerae icteric, moist mucous membranes CHEST: CTA CARDIAC: RRR, normal S1/S2, no appreciable murmurs ABDOMEN: Soft, normoactive bowel sounds, non-tender, non-distended EXT: Warm, no edema NEURO: Grossly intact, moves all extremities, no asterixis SKIN: + jaundice LABS: Lab Results Component Value Date Sodium 135 01/11/2023 Potassium 3.6 01/11/2023 Chloride 93 (L) 01/11/2023 CO2 23 01/11/2023 BUN 35 (H) 01/11/2023 Creatinine 0.51 (L) 01/11/2023 Glucose Lvl 157 01/11/2023 CBC Lab Results Component Value Date WBC 10.2 (H) 01/11/2023 Hemoglobin 6.1 (L) 01/11/2023 Hematocrit 17.6 (L) 01/11/2023 Platelets 245 01/11/2023 LFT's Lab Results Component Value Date Alk Phos 88 01/11/2023 AST 34 01/11/2023 Albumin 2.9 (L) 01/11/2023 Total Bilirubin 8.2 (H) 01/11/2023 ALT 12 01/11/2023 Total Protein 5.6 (L) 01/11/2023 IMAGING: Reviewed in [facility] ENDOSCOPY: Reviewed in [facility] IMPRESSION: Monisha Argueta is a 48 y.o. male with PMH tobacco use disorder (25 pack years, currently smoking) and alcohol use disorder (multiple years of 12+ drinks; last drink 11/23/22), EtOH cirrhosis c/b ascites and recent admission to [facility] (11/25/22- 11/30/22) for upper GI bleed and volume overload who presentswith 2 days of coffee-ground emesis and melena. Hgb 6.1 on admission after several episodes of coffee-ground emesis and melena over the last 24 hours. Patient's BP remains stable off pressors. Although prior EGD at [facility] (11/27) did not demonstrate varices (only showed grade C esophagitis), his CT a/p demonstrates varices. Differential includes variceal bleed, however, these bleeds tend to present with hematemesis and significant hemodynamic insta bility. His coffee-ground emesis is likely due to recurrent esophagitis/gastritis given that he ranout of his PPI ~1 week ago. Interestingly, CT GI bleeding protocol was negative for active extrav but did not small and large bowel hyper-enhancement concerning for shock bowel, which very likely could explain his melena and coffee-ground emesis. Would recommend surgical consult given concern for possible mesenteric ischemia. We will plan for urgent scope this afternoon to further elucidate the source of his bleeding. Regarding his hx of cirrhosis, patient has evidence of moderate ascites on CT a/p. At this time, would recommend holding his diuretics (lasix, spironolactone) in the setting of his recent bleed and dehydration, but please continue his lactulose 20mg TID, titrating to 3-4 Bms daily. Would additionally recommend infectious workup with blood cultures, urinalysis, and diagnotic paracentesis to rule out alternative cause of liver decompensation. RECOMMENDATIONS: # Upper GI Bleed - NPO for EGD - check H&H Q6 for now - maintain 2 large bore IVs, active T&S - transfuse for Hgb <7 - start IV PPI BID - start octreotide gtt, CTX daily - Hold home lasix/spironolactone iso GI bleed - continue lactuose TID with goal BM 3-4 daily #Decompensated cirrhosis - please send serum EtOH level and please send Peth (miscellaneous test) - Volume --> HOLD 100/40 terrence/lasix; recommend dx and tx paracentesis - Infection --> UCX, BCX, CXR, dx tap (JEF!) - Bleeding --> 2 large bore Ivs, active T&S, trend H/H, transfuse for Hgb < 7, see above - Encephalopathy --> continue lactulose, consider starting rifaximin if covered by insurance (can discuss with pharmacy) - Rule out portal vein thrombus w/ RUQUS w/doppler - Coagulopathy - Vit K challenge w/IV 10mg x3 days - 2g Na diet - Thiamine, folate, MVI - CiWA - outpatient liver clinic follow up on discharge The plan as outlined above was discussed with Dr. Rehan Matta. Recommendations were discussed with primary team. Monica Kuo M.D. Fellow in Gastroenterology and Hepatology Pager #[phone] 01/11/2023 Associated attestation - Rehan Matta MD - 01/12/2023 10:15 AM EST ATTENDING ATTESTATION: I have seen, examined, and discussed the patient with the GI fellow Dr. Kuo and I agree withthe findings, assessment, and plan as written. Rehan Matta MD, FRCPC Attending Staff Section of Gastroenterology and Hepatology Pager [phone] * ED Triage - Avinash Valentin RN - 01/11/2023 12:57 PM EST Pt ambulates to triage with c/o weakness and fatigue with approx 5 episodes of coffee ground emesisand dark stool starting yesterday. Inability to tolerate PO food and water. Denies SOB, dizziness/ lightheadedness, CP. A&Ox4 and lethargic. Jaundice appearance HPI (Adult) Stated Reason for Visit: I am very dehydrated History Obtained From: patient * ED Triage - Isabel Nava MD - 01/11/2023 12:53 PM EST Telehealth [id number] Note: The following documentation is provided in my role as a TeleEmergency Physician and reflects a live audiovisual interaction. Brief HPI: . Pt has a hx of cirrhosis and was evaluated at [facility] in November. He now reports dark stools and some episodes of hematemesis. Pt denies dizziness. Denies CP, SOB. Pt notes weakness and dehydrations. He reports nausea and vomiting. N/V started yesterday. Brief Physical Exam: Vital signs reviewed General appearance: Gen: NAD Head: AT/NC Neck: Supple, normal ROM Pulmonary: No respiratory distress CV: Intact peripheral pulses Musculoskeletal:No gross deformities Neuro:Alert, Moves all extremities Psych: No confusion Preliminary testing was ordered. The patient is awaiting a bed in the Emergency Department. documented in this encounter Plan of Treatment Upcoming Encounters Date Type Department Care Team (Latest Contact Info) Description 02/01/2024 2:10 PM EST Hospital Encounter [place] [address] Franklin Ramirez MD [address] [place] [address] [place] [address] 02/01/2024 2:10 PM EST - 02/01/2024 4:50 PM EST Surgery Main Operating [place] [address] Franklin Ramirez MD [address] [place] [address] [place] [address] REPAIR INGUINAL HERNIA, 5 YR OR OLDER, REDUCIBLE (WRVU 7.96) 03/05/2024 11:45 AM EST Office Visit General Surgery at [facility] [address] [phone] Franklin Ramirez MD [address] [place] [address] [place] [address] Pending Results Name Type Priority Associated Diagnoses Date /Time Transfuse RBC Blood Bank STAT 01/11/2023 3:43 PM EST Scheduled Procedures Name Priority Associated Diagnoses Date/Ti ks REPAIR INGUINAL HERNIA, 5 YR OR OLDER, REDUCIBLE (WRVU 7.96) Right inguinal hernia 02/01/2024 2:10 PM EST MODIFIER MESH,BARD FLAT MESH Right inguinal hernia 02/01/2024 2:10 PM EST Scheduled Referrals Name Type Priority Associated Diagnoses Order Schedule Referral to Gastroenterology Outpatient Referral Urgent Acute GI bleeding Alcoholic cirrhosis of liver with ascites Ordered: 01/13/2023 documented as of this encounter Procedures Procedure Name Priority Date/Time Associated Diagnosis Comments PATHOLOGY SLIDE REVIEW Routine 3 8:45 AM EST PATHOLOGY SLIDE REVIEW Routine 3 8:45 AM EST SCAN, PERIPHERAL BLOOD Routine 3 8:45 AM EST HEMOGRAM Routine 01/13/2023 8:45 AM EST DIFFERENTIAL, AUTOMATED Routine 01/14/20 8:45 AM EST IRON AND TIBC Routine 01/13/2023 8:45 AM EST HEMOGLOBIN AND HEMATOCRIT, BLOOD Routine 01/13/2023 8:45 AM EST FOLATE, SERUM Routine 01/13/2023 8:45 AM EST FERRITIN Routine 01/13/2023 8:45 AM EST VITAMIN B12 Routine 01/13/2023 8:45 AM EST US ABDOMEN VASCULAR LIMITED - HEPATOLOGY PROTOCOL Routine 01/13/2023 8:40 AM EST PREPARE RBC Routine 01/13/2023 2:55 AM EST HEMOGRAM Routine 01/13/2023 1:30 AM EST DIFFERENTIAL, AUTOMATED Routine 01/14/20 1:30 AM EST HC PARTIAL THROMBOPLASTIN TIME Routine 01/13/2023 1:30 AM EST PROTHROMBIN TIME Routine 01/13/2023 1:30 AM EST CBC (WITH DIFF) Routine 01/13/2023 1:30 AM EST PHOSPHORUS Routine 01/13/2023 1:30 AM EST MAGNESIUM Routine 01/13/2023 1:30 AM EST LACTATE DEHYDROGENASE Routine 01/13/2023 1:30 AM EST HAPTOGLOBIN Routine 01/13/2023 1:30 AM EST HEPATIC FUNCTION PANEL Routine 1:30 AM EST BASIC METABOLIC PANEL Routine 01/13/2023 1:30 AM EST LAB SCAN 01/13/2023 12:00 AM EST BODY FLUID HOLD Routine 01/12/2023 4:40 PM EST ANAEROBIC CULTURE Routine 01/12/2023 4:4 0 PM EST HC CONC. FOR INFECTIOUS AGENTS Routine 01/12/2023 4:40 PM EST BODY FLUID CULTURE, AEROBIC Routine 01/12/2023 4:40 PM EST CELL COUNT BODY FLUID Routine 01/12/2023 4:40 PM EST GLUCOSE LEVEL BODY FLUID Routine 01/12/2023 4:40 PM EST ALBUMIN LEVEL BODY FLUID Routine 01/12/2023 4:40 PM EST HEMOGLOBIN AND HEMATOCRIT, BLOOD STAT 01/12/2023 4:00 PM EST LACTATE, WHOLE BLOOD STAT 01/12/2023 4:00 PM EST XR CHEST ONE VIEW Routine 01/12/2023 1:0 0 PM EST BLOOD CULTURE STAT 01/12/2023 12:55 PM EST BLOOD CULTURE STAT 01/12/2023 12:46 PM EST MISC ARGUETA TEST-ARGUETA Routine 01/12/2023 1 2:38 PM EST MISCELLANEOUS LAB REQUEST Routine 01/12/2023 12:36 PM EST ETHANOL LEVEL Routine 01/12/2023 12:36 PM EST LACTATE, WHOLE BLOOD STAT 01/12/2023 11:35 AM EST HEMOGLOBIN AND HEMATOCRIT, BLOOD STAT 01/12/2023 7:45 AM EST LACTATE, WHOLE BLOOD STAT 01/12/2023 7:45 AM EST HEMOGLOBIN AND HEMATOCRIT, BLOOD STAT 01/12/2023 4:42 AM EST LACTATE, WHOLE BLOOD STAT 01/12/2023 4:42 AM EST SCAN, PERIPHERAL BLOOD STAT 2:08 AM EST HEMOGRAM STAT 01/12/2023 2:08 AM EST DIFFERENTIAL, AUTOMATED STAT 01/13/20 2:08 AM EST HC PARTIAL THROMBOPLASTIN TIME STAT 01/12/2023 2:08 AM EST PROTHROMBIN TIME STAT 01/12/2023 2:08 AM EST CBC (WITH DIFF) STAT 01/12/2023 2:08 AM EST PHOSPHORUS STAT 01/12/2023 2:08 AM EST MAGNESIUM STAT 01/12/2023 2:08 AM EST HEPATIC FUNCTION PANEL STAT 2:08 AM EST BASIC METABOLIC PANEL STAT 01/12/2023 2:08 AM EST LACTATE, WHOLE BLOOD STAT 01/12/2023 1:18 AM EST TRANSFUSE RED BLOOD CELLS STAT 01/11/2023 10:45 PM EST POCT GLUCOSE Routine 01/11/2023 8:12 PM EST HEMOGLOBIN AND HEMATOCRIT, BLOOD STAT 01/11/2023 8:10 PM EST URINALYSIS WITH REFLEX CULTURE STAT 01/11/2023 8:05 PM EST Upper GI Endoscopy, Diagnostic (70766) 01/11/2023 5:30 PM EST coffee ground emesis UPPER GI ENDOSCOPY Routine 01/11/2023 4: 45 PM EST PREPARE RBC STAT 01/11/2023 4:20 PM EST HEMOGLOBIN AND HEMATOCRIT, BLOOD STAT 01/11/2023 3:59 PM EST L-LACTATE2 WHOLE BLOOD Routine 3:10 PM EST PREPARE RBC STAT 01/11/2023 2:[address] ABDOMEN AND PELVIS WWO CONTRAST (GI BLEED) STAT 01/11/2023 2:17 PM EST L-LACTATE2 WHOLE BLOOD Routine 1:50 PM EST TYPE AND SCREEN VALIDITY STAT 01/11/2023 1:48 PM EST ABO/RH TYPING STAT 01/11/2023 1:48 PM EST ANTIBODY SCREEN STAT 01/11/2023 1:48 PM EST TYPE AND SCREEN ([facility]/CGP/ROYAL) STAT 01/11/2023 1:48 PM EST STEPHEN TUBE HOLD STAT 01/11/2023 1:40 PM EST HEMOGRAM STAT 01/11/2023 1:40 PM EST DIFFERENTIAL, AUTOMATED STAT 01/12/20 1:40 PM EST GOLD TUBE HOLD STAT 01/11/2023 1:40 PM EST HC PARTIAL THROMBOPLASTIN TIME STAT 01/11/2023 1:40 PM EST PROTHROMBIN TIME STAT 01/11/2023 1:40 PM EST CBC (WITH DIFF) STAT 01/11/2023 1:40 PM EST PHOSPHORUS STAT 01/11/2023 1:40 PM EST MAGNESIUM STAT 01/11/2023 1:40 PM EST LIPASE STAT 01/11/2023 1:40 PM EST AMMONIA STAT 01/11/2023 1:40 PM EST COMPREHENSIVE METABOLIC PANEL STAT 01/11/2023 1:40 PM EST EKG 12-LEAD STAT 01/11/2023 1:37 PM EST documented in this encounter Results * Smear Review Report (01/13/2023 8:45 AM EST) Smear Review Report [id number] ? Location: IC3N; IC39; A The signing pathologist has (i) examined the relevant preparation(s) for the specimen(s) and (ii) rendered or confirmed the diagnosis(es). . ? Smear Review DIAGNOSIS PERIPHERAL BLOOD, SMEAR: ?? 1. ??anemia ?? 2. ??Thrombocytopenia Electronically signed by: ?Laury SANCHEZ, Gonzalo Verified: ??01/13/2023 16:32 ??Hematopathologist Performed at: ??-[facility] [place] Dept. of Pathology, [place] [address] Composition Stone Applicator: Yogi Coronado MD, FCAP, ??CLIA Certificate: [id number] DISCUSSION ??There is no significant morphologic evidence for hemolysis ??and makes microangiopathic hemolysis unlikely or at a low clinical level. Immune mediated hemolysis is sometimes not morphologically obvious ??and at low levels of hemoglobin can remain a consideration. Therefore , further evaluation with direct antiglobulin test (if not already done) for definitive evaluation maybe pursued, ??if RBC hemolysis is suspected clinically. The morphologic findings are nonspecific, but no significant platelet clumping, increase in schistocytes, or features of dyspoiesis are appreciated. Factors which may contribute to thrombocytopenia include peripheral utilization or destruction, suppressed production (medication effect, toxin exposure, infections), sequestration, nutritional deficits, and autoimmune disorders. ADDITIONAL STUDIES WBC 7.41K/uL, RBC 2.63M/uL, HGB 8.3g/dL, MCV 87.8fL, RDW 16.1%, PLT 125K/uL Red cells: Normochromic/normoc ytic, polychromasia present, poikilocytes: Clara and target cells present. 0.7% schistocytes seen. Leukocytes: Granulocytes show toxic granules. Lymphocytes are unremarkable. Platelets: Decreased, normal morphology. CLINICAL INFORMATION Review hemolysis (Haptoglobin <10, LDH WNL) in the setting of cirrhosis. SR [facility] 01/13/2023 8:45 AM EST Franklin Severino MD HEMATOLOGY ORDERABLE S Performing Organization Address City/[facility]/ZIP Co de Phone Number [facility] [place] [address] * Scan, Peripheral Blood (01/13/2023 8:45 AM EST) Plat estimate Decreased [facility] RBC Morphology Abnormal [facility] [place] Cells 1-5 /HPF [facility] Blood 01/13/2023 8:45 AM EST 01/13/2023 8:51 AM EST Narrative Resulting Agency Comment Spec In Lab Franklin Severino MD HEMATOLOGY ORDERABLE S Performing Organization Address City/[facility] [place] [address] * (ABNORMAL) Differential, Automated (01/13/2023 8:45 AM EST) Neutrophil % 51.9 % [facility] Neutrophil Absolute 3.85 1.70 - 6.10 x10(3)/mc L [facility] Lymph % 27.7 % [facility] Lymphocytes Abs 2.0 0.9 - 3.2 x10(3)/mc L [facility] Monocyte % 17.3 % [facility] Monocyte Abs 1.3(H) 0.3 - 0.9 x10(3)/mc L [facility] Eos % 2.3 % [facility] Eosinophils Abs 0.2 0.0 - 0.4 x10(3)/mc L [facility] Basophil % 0.4 % [facility] Baso Absolute 0.0 0.0 - 0.1 x10(3)/ L [facility] Immature Gran % 0.40 % [facility] Comment: Immature granulocytes(IG's)percentage and absolute count will include metamyelocytes, myelocytes, and promyelocytes. Blood smears from CBCs yielding IG's will be scanned manually for concordance. If this scan disagrees with the automated IG or if promyelocytes are noted, a manual differential will be performed. Immature Gran Absolute 0.03 0.00 - 0.04 x10(3)/ L [facility] Blood 01/13/2023 8:45 AM EST 01/13/2023 8:51 AM EST Narrative Resulting Agency Comment Spec In Lab Franklin Severino MD HEMATOLOGY ORDERABLE S [facility] [place] [address] * (ABNORMAL) Hemogram (01/13/2023 8:45 AM EST) White Blood Cell 7.4 4.0 - 9.5 x10(3)/mc L [facility] Red Blood Cell 2.63(L) 4.58 - 5.54 x10(6)/[facility] Hemoglobin 8.3(L) 13.7 - 16.5 g/dL [facility] Hematocrit 23.1(L) 40.5 - 48.5 % [facility] Mean Cell Volume 87.8 82.9 - 93.1 fL [facility] Mean Cell Hemoglobin 31.6 27.5 - 32.1 pg [facility] Mean Cell Hemoglobin Concentration 35.9(H) 32.0 - 35.7 g/dL [facility] Platelet 125(L) 145 - 357 x10(3)/[facility] RDW Standard Deviation 51.1(H) 36.0 - 45.0 fL [facility] RDW coefficient of variation 16.1(H) 11.4 - 13.8 % [facility] Mean Platelet Volume 9.0 7.6 - 12.9 fL [facility] NRBC% auto 0.0 % [facility] NRBC Absolute 0.000 0.000 - 0.000 x10(3)/ L [facility] Blood 01/13/2023 8:45 AM EST 01/13/2023 8:51 AM EST Narrative Resulting Agency Comment Spec In Lab Franklin Severino MD HEMATOLOGY ORDERABLE S Performing Organization Address City/[facility]/ZIP Co de Phone Number [facility] [place] [address] * (ABNORMAL) Iron and TIBC (01/13/2023 8:45 AM EST) Iron 54 45 - 160 mcg/dL [facility] TIBC 115(L) 250 - 450 mcg/dL [facility] Iron Saturation 47 20 - 50 % [facility] Blood 01/13/2023 8:45 AM EST 01/13/2023 8:51 AM EST Narrative Resulting Agency Comment Spec In Lab Franklin Severino MD CHEMISTRY ORDERABLES Performing Organization Address [facility] Co de Phone Number [facility] [place] [address] * Ferritin (01/13/2023 8:45 AM EST) Ferritin 176 30 - 400 ng/mL [facility] Comment: Pediatric reference ranges not verified at [facility] [place], interpret with caution. Reference ranges for females greater than 50 years of age approach values for men, i.e., 30-400 ng/mL. Blood 01/13/2023 8:45 AM EST 01/13/2023 8:51 AM EST Narrative Resulting Agency Comment Spec In Lab Franklin Severion MD CHEMISTRY ORDERABLES Performing Organization Address City/[facility] Co de Phone Number [facility] [place] [address] * Folate, serum (01/13/2023 8:45 AM EST) Folate 8.7 4.8 - 24.2 ng/mL [facility] Blood 01/13/2023 8:45 AM EST 01/13/2023 8:51 AM EST Narrative Resulting Agency Comment Spec In Lab Franklin Severino MD CHEMISTRY ORDERABLES Performing Organization Address [facility] Co de Phone Number [facility] [place] [address] * (ABNORMAL) Vitamin B12 (01/13/2023 8:45 AM EST) Vitamin B12 1,466(H) 232 - 1,245 pg/mL [facility] Blood 01/13/2023 8:45 AM EST 01/13/2023 8:51 AM EST Narrative Resulting Agency Comment Spec In Lab Franklin Severino MD CHEMISTRY ORDERABLES Performing Organization Address [facility] Phone Number [facility] [place] [address] * (ABNORMAL) Hemoglobin and Hematocrit, blood (01/13/2023 8:45 AM EST) Hemoglobin 8.3(L) 13.7 - 16.5 g/dL [facility] Hematocrit 23.1(L) 40.5 - 48.5 % [facility] Blood 01/13/2023 8:45 AM EST 01/13/2023 8:51 AM EST Narrative Resulting Agency Comment Spec In Lab Franklin Severino MD HEMATOLOGY ORDERABLE S Performing Organization Address [facility] de Phone Number [facility] [place] [address] * Peripheral Smear Review (01/13/2023 8:45 AM EST) Peripheral Smear Review See Comment [facility] Comment: When completed by the Pathologist, report [id number] will display under Hematopathology Reports. Blood 01/13/2023 8:45 AM EST 01/13/2023 8:51 AM EST Narrative Resulting Agency Comment Spec In Lab Franklin Severino MD HEMATOLOGY ORDERABLE S Performing Organization Address [facility] Co de Phone Number [facility] [place] [address] * US Abdomen Vascular Limited Hepatology Protocol (01/13/2023 8:40 AM EST) Anatomical Region Laterality Modality Abdomen Ultrasound 01/13/2023 8:00 AM EST Impressions 01/13/2023 10:08 AM EST 1. Recanalized umbilical vein. Coarsened hepatic parenchyma without capsular nodularity. No focal lesion is identified however there is limited visualization of the LEFT lobe of the liver. 2. Large volume ascites. 3. Main portal vein is patent diameter 11.5 mm. Hepatopedal flow. 4. Gallbladder with echogenic sludge distending. Wall thickness 3.3 mm. ??CBD: 3.5 mm. 5. Mild splenomegaly. Thank you for letting us participate in the care of this patient. If you are a health care provider and have any questions regarding this report, please contact the number above. For patients who have questions, please contact the health nurse wound care that requested your imaging first. ?Neena Davis, Staff Physician Electronically Signed Final Report ?? 01/13/2023 10:08 am Narrative 01/13/2023 10:08 AM EST Abdominal ? (Signed Final 01/13/2023 10:08 am) PATIENT INFO: ID #: ? [id number] ?: ??[birth year] (48 yrs)(M) Name: ? MONISHA ARGUETA ? Visit Date: 01/13/2023 08:00 am PERFORMED BY: Attending: ?Susan SANCHEZ, Neena J. Performed By: ? Esther Funes RDMS Referred By: ?CURTIS WEINSTEIN Location: ? [place] SERVICE(S) PROVIDED: [facility] - Hepatology Protocol - ? [address]26[address], [address] Abdominal Limited Survey with Vascular ??- ??Single Organ or Quadrant - [id number] INDICATIONS: Concern for portal vein thrombus after multiple bouts of hematemesis iso h/o ETOH cirrhosis COMPARISON: CT ??Abdomen Pelvis 01/11/2023 ------ LIVER: ------ Right Lobe Length: ?? 17.7 ?? cm Echogenicity/Echotexture: ?? Coarse parenchyma without ? capsular nodularity Portal Veins: ?Hepatopetal Comment: ?Recanalized umbilical vein. Limited visualization of ? left lobe due to overlying bowel gas midline ? abdomen. No focal lesion seen. HEPATIC-PORTAL DUPLEX: ? PSV ? Waveform ? (cm/s) Right Hepatic ? Patent Vein: Middle ?Patent Hepatic Vein: Left Hepatic ?Patent Vein: Main Portal ? 41.6 ?Patent Vein: Right Portal ?24.0 ?Patent Vein: Left Portal ? 23.6 ?Patent Vein: ? Diam. ?? Direction of Flow ?(mm) Main Portal ? 11.5 ??Hepatopetal Vein: GALLBLADDER: Cholelithiasis: ?Sludge visualized Wall Thickness: ?3.3 mm Focal Tenderness: ?Negative sonographic Oswald's sign BILIARY TRACT: Intrahepatic Ducts: ?? Normal Extrahepatic Ducts: ?? Normal Common Duct Size: ? 3.5 ? mm ------- SPLEEN: ------- Size (cm) ?L: ??13.5 ?AP: ??6.8 ? TV: ??13.7 Vol (ml): ?658.5 FLUID COLLECTIONS: Ascites present on 4 quadrant evaluation Procedure Note Neena Davis MD - 01/13/2023 Abdominal (Signed Final 01/13/2023 10:08 am) PATIENT INFO: ID #: [id number] : [birth year] (48 yrs)(M) Name: MONISHA ARGUETA Visit Date: 01/13/2023 08:00 am PERFORMED BY: Attending: Neena Davis MD Performed By: Esther Funes RDMS Referred By: CURTIS WEINSTEIN Location: [place] SERVICE(S) PROVIDED: [facility] - Hepatology Protocol - 92602, 79178 Abdominal Limited Survey with Vascular - Single Organ or Quadrant - [id number] INDICATIONS: Concern for portal vein thrombus after multiple bouts of hematemesis iso h/o ETOH cirrhosis COMPARISON: CT Abdomen Pelvis 01/11/2023 ------ LIVER: ------ Right Lobe Length: 17.7 cm Echogenicity/Echotexture: Coarse parenchyma without capsular nodularity Portal Veins: Hepatopetal Comment: Recanalized umbilical vein. Limited visualization of left lobe due to overlying bowel gas midline abdomen. No focal lesion seen. HEPATIC-PORTAL DUPLEX: PSV Waveform (cm/s) Right Hepatic Patent Vein: Middle Patent Hepatic Vein: Left Hepatic Patent Vein: Main Portal 41.6 Patent Vein: Right Portal 24.0 Patent Vein: Left Portal 23.6 Patent Vein: Diam. Direction of Flow (mm) Main Portal 11.5 Hepatopetal Vein: GALLBLADDER: Cholelithiasis: Sludge visualized Wall Thickness: 3.3 mm Focal Tenderness: Negative sonographic Oswald's sign BILIARY TRACT: Intrahepatic Ducts: Normal Extrahepatic Ducts: Normal Common Duct Size: 3.5 mm ------- SPLEEN: ------- Size (cm) L: 13.5 AP: 6.8 TV: 13.7 Vol (ml): 658.5 FLUID COLLECTIONS: Ascites present on 4 quadrant evaluation IMPRESSION 1. Recanalized umbilical vein. Coarsened hepatic parenchyma without capsular nodularity. No focal lesion is identified however there is limited visualization of the LEFT lobe of the liver. 2. Large volume ascites. 3. Main portal vein is patent diameter 11.5 mm. Hepatopedal flow. 4. Gallbladder with echogenic sludge distending. Wall thickness 3.3 mm. CBD: 3.5 mm. 5. Mild splenomegaly. Thank you for letting us participate in the care of this patient. If you are a health care provider and have any questions regarding this report, please contact the number above. For patients who have questions, please contact the health nurse wound care that requested your imaging first. Neena Davis, Staff Physician Electronically Signed Final Report 01/13/2023 10:08 am Curtis Weinstein MD IMG GEN ORDERABLE S * Transfuse RBC (01/13/2023 5:51 AM EST) Pj Mcmillan MD NURSING TREATMENT OR DERABLES - BLOOD ADMIN * Prepare RBC (01/13/2023 2:55 AM EST) Dispensed? Yes [facility] Blood 01/13/2023 2:55 AM EST 01/13/2023 2:51 AM EST Pj Mcmillan MD BLOOD BANK PRODUCT O RDERABLES Performing Organization Address City/State/[facility] Co de Phone Number [facility] [place] [address] * (ABNORMAL) Differential, Automated (01/13/2023 1:30 AM EST) Neutrophil % 49.7 % [facility] Neutrophil Absolute 3.64 1.70 - 6.10 x10(3)/mc L [facility] Lymph % 30.4 % [facility] Lymphocytes Abs 2.2 0.9 - 3.2 x10(3)/mc L [facility] Monocyte % 17.0 % [facility] Monocyte Abs 1.2(H) 0.3 - 0.9 x10(3)/mc L [facility] Eos % 2.1 % [facility] Eosinophils Abs 0.2 0.0 - 0.4 x10(3)/mc L [facility] Basophil % 0.4 % [facility] Baso Absolute 0.0 0.0 - 0.1 x10(3)/mc L [facility] Immature Gran % 0.40 % [facility] Comment: Immature granulocytes(IG's)percentage and absolute count will include metamyelocytes, myelocytes, and promyelocytes. Blood smears from CBCs yielding IG's will be scanned manually for concordance. If this scan disagrees with the automated IG or if promyelocytes are noted, a manual differential will be performed. Immature Gran Absolute 0.03 0.00 - 0.04 x10(3)/mc L [facility] Blood 01/13/2023 1:30 AM EST 01/13/2023 1:41 AM EST Narrative Resulting Agency Comment Spec In Lab Pj Mcmillan MD HEMATOLOGY ORDERABLE S Performing Organization Address City/[facility]/ZIP Co de Phone Number [facility] [place] [address] * (ABNORMAL) Hemogram (01/13/2023 1:30 AM EST) White Blood Cell 7.3 4.0 - 9.5 x10(3)/mc L [facility] Red Blood Cell 2.17(L) 4.58 - 5.54 x10(6)/mc L [facility] Hemoglobin 6.8(L) 13.7 - 16.5 g/dL [facility] Hematocrit 19.0(L) 40.5 - 48.5 % [facility] Mean Cell Volume 87.6 82.9 - 93.1 fL [facility] Mean Cell Hemoglobin 31.3 27.5 - 32.1 pg [facility] Mean Cell Hemoglobin Concentration 35.8(H) 32.0 - 35.7 g/dL [facility] Platelet 126(L) 145 - 357 x10(3)/mc L [facility] RDW Standard Deviation 54.7(H) 36.0 - 45.0 fL [facility] RDW coefficient of variation 17.0(H) 11.4 - 13.8 % [facility] Mean Platelet Volume 9.2 7.6 - 12.9 fL [facility] NRBC% auto 0.0 % [facility] NRBC Absolute 0.000 0.000 - 0.000 x10(3)/mc L [facility] Blood 01/13/2023 1:30 AM EST 01/13/2023 1:41 AM EST Narrative Resulting Agency Comment Spec In Lab Pj Mcmillan MD HEMATOLOGY ORDERABLE S Performing Organization Address City/[facility]/ZIP Co de Phone Number [facility] [place] [address] * (ABNORMAL) Prothrombin Time (01/13/2023 1:30 AM EST) Prothrombin Time 20.9(H) 9.4 - 12.5 sec [facility] International Normalization Ratio 1.9 [facility] Comment: An INR <2.0 indicates [...] be appropriate depending on clinical circumstances. Blood 01/13/2023 1:30 AM EST 01/13/2023 1:41 AM EST Narrative Resulting Agency Comment Spec In Lab Curtis Weinstein MD HEMATOLOGY ORDERABLE S Performing Organization Address [facility] Co de Phone Number [facility] [place] [address] * Phosphorus (01/13/2023 1:30 AM EST) Phosphorus 2.9 2.5 - 4.5 mg/dL [facility] Blood 01/13/2023 1:30 AM EST 01/13/2023 1:41 AM EST Narrative Resulting Agency Comment Spec In Lab Curtis Weinstein MD CHEMISTRY ORDERABLES Performing Organization Address [facility] Co de Phone Number [facility] [place] [address] * Magnesium (01/13/2023 1:30 AM EST) Magnesium 0.72 0.69 - 1.07 mmol/L [facility] Blood 01/13/2023 1:30 AM EST 01/13/2023 1:41 AM EST Narrative Resulting Agency Comment Spec In Lab Curtis Weinstein MD CHEMISTRY ORDERABLES Performing Organization Address [facility] Co de Phone Number [facility] [place] [address] * (ABNORMAL) Basic Metabolic Panel (non-fasting) (01/13/2023 1:30 AM EST) Glucose 100 65 - 199 mg/dL [facility] Comment:Diabetes: >=200 mg/d L plus symptoms Blood Urea Nitrogen 17 10 - 20 mg/dL [facility] Creatinine 0.55(L) 0.80 - 1.50 mg/dL [facility] Sodium 129(L) 135 - 145 mmol/L [facility] Potassium 3.2(L) 3.5 - 5.0 mmol/L [facility] Comment: Please note: ??Patients with WBC >100,000 may have falsely elevated Potassium levels. ??For accurate Potassium quantification in these patients send serum separator tube (gold top) for subsequent determinations. ??Contact the Clinical Chemistry Laboratory if there are any questions. Chloride 96(L) 98 - 107 mmol/L [facility] Carbon Dioxide 25 22 - 31 mmol/L [facility] Anion Gap 8 5 - 15 mmol/L [facility] Calcium 7.6(L) 8.5 - 10.5 mg/dL [facility] Est Glomerular Filtration Rate 121 >=60 mL/min/1. 73 m?? [facility] Comment: This patient's estimated [...] and symptoms in addition to eGFR. Blood 01/13/2023 1:30 AM EST 01/13/2023 1:41 AM EST Narrative Resulting Agency Comment Spec In Lab Curtis Weinstein MD CHEMISTRY ORDERABLES [facility] [place] [address] * (ABNORMAL) APTT (01/13/2023 1:30 AM EST) Partial Thromboplastin Time 39(H) 25 - 37 sec [facility] Comment: The PTT is NOT appropriate for heparin monitoring. Use the Anti-Xa level for heparin monitoring (HEP UFH) or LMWH monitoring (HEP LMW). A PTT less than 37 seconds generally indicates adequate hemostasis. Blood 01/13/2023 1:30 AM EST 01/13/2023 1:41 AM EST Narrative Resulting Agency Comment Spec In Lab Curtis Weinstein MD HEMATOLOGY ORDERABLE S Performing Organization Address [facility] Co de Phone Number [facility] [place] [address] * (ABNORMAL) Hepatic Function Panel (01/13/2023 1:30 AM EST) Protein, Total 4.6(L) 6.1 - 8.0 g/dL [facility] Albumin 2.4(L) 3.2 - 5.2 g/dL [facility] Aspartate Aminotransferase 31 0 - 39 unit/L [facility] Alanine Aminotransferase 11 0 - 55 unit/L [facility] Alkaline Phosphatase 67 40 - 130 unit/L [facility] Bilirubin, Total 4.8(H) 0.2 - 1.3 mg/dL [facility] Bilirubin, Direct 2.3(H) 0.0 - 0.3 mg/dL [facility] Blood 01/13/2023 1:30 AM EST 01/13/2023 1:41 AM EST Narrative Resulting Agency Comment Spec In Lab uCrtis Weinstein MD CHEMISTRY ORDERABLES Performing Organization Address [facility] Co de Phone Number [facility] [place] [address] * Lactate Dehydrogenase (01/13/2023 1:30 AM EST) Pathologist [facility] Lactate Dehydrogenase 144 110 - 220 unit/L [facility] Blood 01/13/2023 1:30 AM EST 01/13/2023 1:41 AM EST Narrative Resulting Agency Comment Spec In Lab Galina T Yesi DO CHEMISTRY ORDERABLES Performing Organization Address [facility] de Phone Number [facility] [place] [address] * (ABNORMAL) Haptoglobin (01/13/2023 1:30 AM EST) Haptoglobin <10(L) 30 - 200 mg/dL [facility] Comment: Haptoglobin concentrations in newborns is low to undetectable; however, adult concentrations are usually attained by 4 months of age. ??No sex-related differences for haptoglobin have been detected. Blood 01/13/2023 1:30 AM EST 01/13/2023 1:41 AM EST Narrative Resulting Agency Comment Spec In Lab Galina Key DO CHEMISTRY ORDERABLES Performing Organization Address [facility] de Phone Number [facility] [place] [address] * SCAN DOC: LAB (01/13/2023 12:00 AM EST) Narrative 01/13/2023 12:00 AM EST Ordered by an unspecified provider. Scanning Provider MEDIA MGR SCAN EXT O RDR/RSLT * Anaerobic Culture (01/12/2023 4:40 PM EST) Anaerobic Culture No anaerobic organisms isolated [facility] Peritoneal Fluid 01/12/2023 4:40 PM EST 01/12/2023 5:14 PM EST Narrative Resulting Agency Comment Spec In Lab Angy Spivey MD MICROBIOLOGY - GENER AL ORDERABLES Performing Organization Address [facility] Co de Phone Number [facility] [place] [address] * Body Fluid Culture, Aerobic (01/12/2023 4:40 PM EST) Body Fluid Culture No growth [facility] Gram Stain Cytocentrifuge Gram Stain performed No Neutrophils seen. No microorganisms seen. [facility] Peritoneal Fluid 01/12/2023 4:40 PM EST 01/12/2023 5:14 PM EST Narrative Resulting Agency Comment Spec In Lab Angy Spivey MD MICROBIOLOGY - GENER AL ORDERABLES Performing Organization Address City/[facility]/ZIP Co de Phone Number [facility] [place] [address] * Body Fluid HOLD Peritoneal Fluid (01/12/2023 4:40 PM EST) HOLD, FLD Sample in lab. [facility] Comment: Collection date/time has been modified to: 16:40:00. ??Previous collection date/time: 16:25:00. Corrected from Sample in lab. [NA] on 01/12/23 17:01:39 EST by Jared Velazquez Body Fld 01/12/2023 4:40 PM EST 01/12/2023 4:59 PM EST Curtis Weinstein MD BODY FLUIDS AND STOO LS ORDERABLES Performing Organization Address [facility] Co de Phone Number [facility] [place] [address] * Glucose Level Body Fluid Peritoneal Fluid (01/12/2023 4:40 PM EST) Glucose, Fluid 128 mg/dL [facility] Comment: Reference intervals are unavailable for this test in body fluids. Comparison of this result with the concentration in blood, serum, or plasma is recommended. This test has not been cleared by the [place] FDA. Performance characteristics of this test for the analysis of body fluids were determined by [facility] in accordance with CLIA requirements. This laboratory is qualified under CLIA to perform high-complexity testing. Gluc, Fld Type Peritoneal fl [facility] Peritoneal Fluid 01/12/2023 4:40 PM EST 01/12/2023 4:59 PM EST Narrative Resulting Agency Comment Spec In Lab Curtis Weinstein MD BODY FLUIDS AND STOO LS ORDERABLES Performing Organization Address City/[facility]/ZIP Co de Phone Number [facility] [place] [address] * Albumin Level Body Fluid Peritoneal Fluid (01/12/2023 4:40 PM EST) Albumin, Fluid 0.3 g/dL [facility] Comment: Reference intervals are unavailable for this test in body fluids. Comparison of this result with the concentration in blood, serum, or plasma is recommended. This test has not been cleared by the [place] FDA. Performance characteristics of this test for the analysis of body fluids were determined by [facility] in accordance with CLIA requirements. This laboratory is qualified under CLIA to perform high-complexity testing. Albumin, Fld Type Peritoneal fl [facility] Peritoneal Fluid 01/12/2023 4:40 PM EST 01/12/2023 4:59 PM EST Narrative Resulting Agency Comment Spec In Lab Curtis Weinstein MD BODY FLUIDS AND CESAR MCKEON ORDERABLES [facility] [place] [address] * Cell Count Body Fluid Peritoneal Fluid (01/12/2023 4:40 PM EST) Body Fluid Source Peritoneal Fl [facility] Color, Fld Yellow [facility] Appearance, Fld Clear [facility] WBC Count, Fld 109 <=499 /mcl [facility] Comment: All body fluid results should always be interpreted in light of the total clinical presentation of the patient, including clinical history, data from additional tests and other appropriate information. Polymorphonuclear cells BF % 20 % [facility] Comment: Polymorphonuclear cell percent and absolute values may contain Neutrophils, Eosinophils, and Basophils. Body fluid smear will be scanned manually for concordance. Mononuclear cells BF % 80 % [facility] Comment: Rare WBC phagocytosis present Mononuclear cell percent and absolute values may contain Lymphocytes and Monocytes. Body fluid smear will be scanned manually for concordance. Polymorphonuclear cells BF ABS 22 /mcl [facility] Comment: Polymorphonuclear cell percent and absolute values may contain Neutrophils, Eosinophils, and Basophils. Body fluid smear will be scanned manually for concordance. Mononuclear cells BF ABS 87 /mcl [facility] Comment: Mononuclear cell percent and absolute values may contain Lymphocytes and Monocytes. Body fluid smear will be scanned manually for concordance. Peritoneal Fluid 01/12/2023 4:40 PM EST 01/12/2023 4:59 PM EST Narrative Resulting Agency Comment Spec In Lab Curtis Weinstein MD BODY FLUIDS AND STOO LS ORDERABLES Performing Organization Address [facility] Co de Phone Number [facility] [place] [address] * (ABNORMAL) Hemoglobin and Hematocrit, blood (01/12/2023 4:00 PM EST) Hemoglobin 7.4(L) 13.7 - 16.5 g/dL [facility] Hematocrit 21.4(L) 40.5 - 48.5 % [facility] Blood 01/12/2023 4:00 PM EST 01/12/2023 4:24 PM EST Narrative Resulting Agency Comment Spec In Lab Curtis Weinstein MD HEMATOLOGY ORDERABLE S Performing Organization Address [facility] Co de Phone Number [facility] [place] [address] * Lactate, whole blood, send to lab ([facility] [place] [place]) (01/12/2023 4:00 PM EST) Lactate WB 2.2 0.5 - 2.2 mmol/L [facility] Blood 01/12/2023 4:00 PM EST 01/12/2023 4:24 PM EST Narrative Resulting Agency Comment Spec In Lab Curtis Weinstein MD CHEMISTRY ORDERABLES Performing Organization Address [facility] Co de Phone Number [facility] [place] [address] * XR Chest One View (01/12/2023 1:00 PM EST) Anatomical Region Laterality Modality Chest N/A Digital Radiogra phy Impressions 01/12/2023 1:31 PM EST No acute cardiopulmonary disease is detected in the setting of sepsis. Thank you for letting us participate in the care of this patient. ??If you are a health care provider and have any questions regarding this report, please contact the number below. ??For patients who have questions please contact the health nurse wound care that requested your imaging first. ? Narrative 01/12/2023 1:31 PM EST EXAMINATION: XR CHEST ONE VIEW CLINICAL HISTORY: Concern for sepsis TECHNIQUE: 1 view of the chest COMPARISON: None FINDINGS: There is no focal consolidation. There is a curvilinear opacity in the right lung which may reflect slight thickening or pleural fluid along the fissure, or perhaps prior scarring. No dependently layering pleural effusion. No pneumothorax. Cardiomediastinal silhouette is normal. No obvious acute osseous abnormalities. Procedure Note Maddie Schuster MD - 01/12/2023 EXAMINATION: XR CHEST ONE VIEW CLINICAL HISTORY: Concern for sepsis TECHNIQUE: 1 view of the chest COMPARISON: None FINDINGS: There is no focal consolidation. There is a curvilinear opacity in theright lung which may reflect slight thickening or pleural fluid along thefissure, or perhaps prior scarring. No dependently layering pleural effusion. No pneumothorax. Cardiomediastinal silhouette is normal. No obvious acute osseous abnormalities. IMPRESSION No acute cardiopulmonary disease is detected in the setting of sepsis. Thank you for letting us participate in the care of this patient. If youare a health care provider and have any questions regarding this report,please contact the number below. For patients who have questions please contactthe health nurse wound care that requested your imaging first. Curtis Weinstein MD IMG DX ORDERABLES * Blood culture (01/12/2023 12:55 PM EST) Blood Culture No growth at 5 days. [facility] Blood 01/12/2023 12:5 5 PM EST 01/12/2023 1:15 PM EST Comment:R Wrist Narrative Resulting Agency Comment Spec In Lab Curtis Weinstein MD MICROBIOLOGY - BLOOD ORDERABLES Performing Organization Address [facility] Co de Phone Number [facility] [place] [address] * Blood culture (01/12/2023 12:46 PM EST) Blood Culture No growth at 5 days. [facility] Blood 01/12/2023 12:4 6 PM EST 01/12/2023 1:13 PM EST Comment:R Forearm Narrative Resulting Agency Comment Spec In Lab Curtis Weinstein MD MICROBIOLOGY - BLOOD ORDERABLES Performing Organization Address [facility] Co de Phone Number [facility] [place] [phone] * Misc Argueta Test-Argueta (01/12/2023 12:38 PM EST) Misc Argueta Test ? Result ? Flag ??Unit ?? RefValue --- Phosphatidylethanol Confirmation, B ??PEth 16:0/18:1 (POPEth) by LC-MS/MS ?<10 ?ng/mL ??Cutoff: 10 ?Phosphatidylethan ol (PEth) homologues result interpretation ?PEth [...] developed and its performance characteristics ?determined by [facility] in a manner consistent with CLIA ?requirements. This test has not been cleared or approved by ?the U.S. Food and Drug Administration. ?Test Performed by: ?[facility] ?[address] [place] [address] ?Analysis Or Research Safety Inspector: Luis eVga M.D. Ph.D.; CLIA# [id number] [facility] Blood Venous Draw / Unknown 01/12/2023 12:38 PM EST 01/12/2023 2:33 PM EST Narrative Resulting Agency Comment Spec In Lab Angy Spivey MD LAB SEND OUT ORDERAB LES Performing Organization Address City/[facility] Co de Phone Number [facility] [place] [address] * Miscellaneous Lab request (01/12/2023 12:36 PM EST) Label Request received in lab. [facility] Blood 01/12/2023 12:3 6 PM EST 01/12/2023 12:54 PM EST Narrative Resulting Agency Comment Spec In Lab Curtis Weinstein MD LAB SEND OUT ORDERAB LES Performing Organization Address [facility] Co de Phone Number [facility] [place] [address] * Ethanol Level (01/12/2023 12:36 PM EST) Ethanol <100 <=99 mg/L [facility] Comment: Greater than 800 mg/L (0.08%) should be considered intoxicated. 3400 to 4500 mg/L (0.34 - 0.45%) is considered severe intoxication. Greater than 5500 mg/L (0.55%) is usually fatal. Blood 01/12/2023 12:3 6 PM EST 01/12/2023 12:54 PM EST Narrative Resulting Agency Comment Spec In Lab Curtis Weinstein MD CHEMISTRY ORDERABLES Performing Organization Address [facility] Co de Phone Number [facility] [place] [address] * (ABNORMAL) Lactate, whole blood, send to lab ([facility] [place] [place]) (01/12/2023 11:35 AM EST) Lactate WB 2.6(H) 0.5 - 2.2 mmol/L [facility] Blood 01/12/2023 11:3 5 AM EST 01/12/2023 12:11 PM EST Narrative Resulting Agency Comment Spec In Lab Curtis Weinstein MD CHEMISTRY ORDERABLES Performing Organization Address City/[facility]/ZIP Co de Phone Number [facility] [place] [address] * (ABNORMAL) Hemoglobin and Hematocrit, blood (01/12/2023 7:45 AM EST) Hemoglobin 7.6(L) 13.7 - 16.5 g/dL [facility] Hematocrit 21.6(L) 40.5 - 48.5 % [facility] Blood 01/12/2023 7:45 AM EST 01/12/2023 7:51 AM EST Narrative Resulting Agency Comment Spec In Lab Curtis Weinstein MD HEMATOLOGY ORDERABLE S Performing Organization Address City/[facility]/ZIP Co de Phone Number [facility] [place] [address] * Lactate, whole blood, send to lab ([facility] [place]) (01/12/2023 7:45 AM EST) Lactate WB 2.2 0.5 - 2.2 mmol/L [facility] Blood 01/12/2023 7:45 AM EST 01/12/2023 7:50 AM EST Narrative Resulting Agency Comment Spec In Lab Curtis Weinstein MD CHEMISTRY ORDERABLES Performing Organization Address [facility] Co de Phone Number [facility] [place] [address] * (ABNORMAL) Hemoglobin and Hematocrit, blood (01/12/2023 4:42 AM EST) Hemoglobin 7.3(L) 13.7 - 16.5 g/dL [facility] Hematocrit 21.2(L) 40.5 - 48.5 % [facility] Blood 01/12/2023 4:42 AM EST 01/12/2023 4:59 AM EST Narrative Resulting Agency Comment Spec In Lab Curtis Weinstein MD HEMATOLOGY ORDERABLE S Performing Organization Address City/[facility]/ZIP Co de Phone Number [facility] [place] [address] * (ABNORMAL) Lactate, whole blood, send to lab ([facility] [place]) (01/12/2023 4:42 AM EST) Lactate WB 2.6(H) 0.5 - 2.2 mmol/L [facility] Blood 01/12/2023 4:42 AM EST 01/12/2023 4:59 AM EST Narrative Resulting Agency Comment Spec In Lab Curtis Weinstein MD CHEMISTRY ORDERABLES Performing Organization Address City/[facility] Co de Phone Number [facility] [place] [address] * (ABNORMAL) Hepatic Function Panel (01/12/2023 2:08 AM EST) Pathologist [facility] Protein, Total 4.6(L) 6.1 - 8.0 g/dL [facility] Albumin 2.3(L) 3.2 - 5.2 g/dL [facility] Aspartate Aminotransferase 32 0 - 39 unit/L [facility] Alanine Aminotransferase 10 0 - 55 unit/L [facility] Alkaline Phosphatase 68 40 - 130 unit/L [facility] Bilirubin, Total 7.5(H) 0.2 - 1.3 mg/dL [facility] Bilirubin, Direct 2.1(H) 0.0 - 0.3 mg/dL [facility] Blood Venous Draw / Unknown 01/12/2023 2:08 AM EST 01/12/2023 2:15 AM EST Narrative Resulting Agency Comment Spec In Lab Rehan Kelly MD CHEMISTRY ORDERABLES Performing Organization Address [facility] Co de Phone Number [facility] [place] [address] * Scan, Peripheral Blood (01/12/2023 2:08 AM EST) Plat estimate Decreased [facility] RBC Morphology Abnormal [facility] Ovalocytes 1-5 /HPF [facility] [place] Cells 1-5 /HPF [facility] Blood 01/12/2023 2:08 AM EST 01/12/2023 2:14 AM EST Narrative Resulting Agency Comment Spec In Lab Tomas Nagel MD HEMATOLOGY ORDERABLE S [facility] [place] [address] * (ABNORMAL) Differential, Automated (01/12/2023 2:08 AM EST) Neutrophil % 59.2 % [facility] Neutrophil Absolute 6.22(H) 1.70 - 6.10 x10(3)/mc L [facility] Lymph % 20.2 % [facility] Lymphocytes Abs 2.1 0.9 - 3.2 x10(3)/mc L [facility] Monocyte % 18.6 % [facility] Monocyte Abs 2.0(H) 0.3 - 0.9 x10(3)/mc L [facility] Eos % 1.2 % [facility] Eosinophils Abs 0.1 0.0 - 0.4 x10(3)/mc L [facility] Basophil % 0.4 % [facility] Baso Absolute 0.0 0.0 - 0.1 x10(3)/mc L [facility] Immature Gran % 0.40 % [facility] Comment: Immature granulocytes(IG's)percentage and absolute count will include metamyelocytes, myelocytes, and promyelocytes. Blood smears from CBCs yielding IG's will be scanned manually for concordance. If this scan disagrees with the automated IG or if promyelocytes are noted, a manual differential will be performed. Immature Gran Absolute 0.04 0.00 - 0.04 x10(3)/mc L [facility] Blood 01/12/2023 2:08 AM EST 01/12/2023 2:14 AM EST Narrative Resulting Agency Comment Spec In Lab Tomas Nagel MD HEMATOLOGY ORDERABLE S [facility] [place] [address] * (ABNORMAL) Hemogram (01/12/2023 2:08 AM EST) White Blood Cell 10.5(H) 4.0 - 9.5 x10(3)/mc L [facility] Red Blood Cell 2.47(L) 4.58 - 5.54 x10(6)/mc L [facility] Hemoglobin 7.6(L) 13.7 - 16.5 g/dL [facility] Hematocrit 21.7(L) 40.5 - 48.5 % [facility] Mean Cell Volume 87.9 82.9 - 93.1 fL [facility] Mean Cell Hemoglobin 30.8 27.5 - 32.1 pg [facility] Mean Cell Hemoglobin Concentration 35.0 32.0 - 35.7 g/dL [facility] Platelet 143(L) 145 - 357 x10(3)/mc L [facility] RDW Standard Deviation 53.6(H) 36.0 - 45.0 fL [facility] RDW coefficient of variation 16.7(H) 11.4 - 13.8 % [facility] Mean Platelet Volume 9.1 7.6 - 12.9 fL [facility] NRBC% auto 0.0 % [facility] NRBC Absolute 0.000 0.000 - 0.000 x10(3)/mc L [facility] Blood 01/12/2023 2:08 AM EST 01/12/2023 2:14 AM EST Narrative Resulting Agency Comment Spec In Lab Tomas Nagel MD HEMATOLOGY ORDERABLE S [facility] [place] [address] * Phosphorus (01/12/2023 2:08 AM EST) Phosphorus 3.3 2.5 - 4.5 mg/dL [facility] Blood 01/12/2023 2:08 AM EST 01/12/2023 2:14 AM EST Narrative Resulting Agency Comment Spec In Lab Curtis Weinstein MD CHEMISTRY ORDERABLES [facility] [place] [address] * (ABNORMAL) Magnesium (01/12/2023 2:08 AM EST) Magnesium 0.67(L) 0.69 - 1.07 mmol/L [facility] Blood 01/12/2023 2:08 AM EST 01/12/2023 2:14 AM EST Narrative Resulting Agency Comment Spec In Lab Curtis Weinstein MD CHEMISTRY ORDERABLES Performing Organization Address City/State/[facility] Co de Phone Number [facility] [place] [address] * (ABNORMAL) Basic Metabolic Panel (non-fasting) (01/12/2023 2:08 AM EST) Glucose 133 65 - 199 mg/dL [facility] Comment:Diabetes: >=200 mg/d L plus symptoms Blood Urea Nitrogen 28(H) 10 - 20 mg/dL [facility] Creatinine 0.56(L) 0.80 - 1.50 mg/dL [facility] Sodium 128(L) 135 - 145 mmol/L [facility] Potassium 3.5 3.5 - 5.0 mmol/L [facility] Comment: Please note: ??Patients with WBC >100,000 may have falsely elevated Potassium levels. ??For accurate Potassium quantification in these patients send serum separator tube (gold top) for subsequent determinations. ??Contact the Clinical Chemistry Laboratory if there are any questions. Chloride 94(L) 98 - 107 mmol/L [facility] Carbon Dioxide 22 22 - 31 mmol/L [facility] Anion Gap 12 5 - 15 mmol/L [facility] Calcium 7.9(L) 8.5 - 10.5 mg/dL [facility] Comment:result rechecked-bz Est Glomerular Filtration Rate 121 >=60 mL/min/1. 73 m?? [facility] Comment: This patient's estimated [...] and symptoms in addition to eGFR. Blood 01/12/2023 2:08 AM EST 01/12/2023 2:14 AM EST Narrative Resulting Agency Comment Spec In Lab Curtis Weinstein MD CHEMISTRY ORDERABLES Performing Organization Address City/[facility]/ZIP Co de Phone Number [facility] [place] [address] * APTT (01/12/2023 2:08 AM EST) Partial Thromboplastin Time 35 25 - 37 sec [facility] Comment: The PTT is NOT appropriate for heparin monitoring. Use the Anti-Xa level for heparin monitoring (HEP UFH) or LMWH monitoring (HEP LMW). A PTT less than 37 seconds generally indicates adequate hemostasis. Blood 01/12/2023 2:08 AM EST 01/12/2023 2:14 AM EST Narrative Resulting Agency Comment Spec In Lab Curtis Weinstein MD HEMATOLOGY ORDERABLE S Performing Organization Address [facility] Co de Phone Number [facility] [place] [address] * (ABNORMAL) Prothrombin Time (01/12/2023 2:08 AM EST) Prothrombin Time 19.1(H) 9.4 - 12.5 sec [facility] International Normalization Ratio 1.7 [facility] Comment: An INR <2.0 indicates [...] be appropriate depending on clinical circumstances. Blood 01/12/2023 2:08 AM EST 01/12/2023 2:14 AM EST Narrative Resulting Agency Comment Spec In Lab Curtis Weinstein MD HEMATOLOGY ORDERABLE S [facility] [place] [address] * Transfuse RBC (01/12/2023 1:21 AM EST) Curtis Weinstein MD NURSING TREATMENT OR DERABLES - BLOOD ADMIN * Transfuse RBC (01/12/2023 1:21 AM EST) Curtis Weinstein MD NURSING TREATMENT OR DERABLES - BLOOD ADMIN * (ABNORMAL) Lactate, whole blood, send to lab ([facility] [place]/[facility] [place]) (01/12/2023 1:18 AM EST) Lactate WB 4.7(Critic al) 0.5 - 2.2 mmol/L [facility] Comment:Called by: katheryn, Read back by: Angeline Briseno, Date/Time:01/12/23 01:34. Blood 01/12/2023 1:18 AM EST 01/12/2023 1:24 AM EST Narrative Resulting Agency Comment Spec In Lab Curtis Weinstein MD CHEMISTRY ORDERABLES [facility] [place] [address] * POCT Glucose (01/11/2023 8:12 PM EST) Glucose, POC 166 65 - 199 mg/dL [facility] Comment: Supplemental ranges: <140 mg/dL before meals <180 mg/dL all other times of the day Blood 01/11/2023 8:12 PM EST 01/11/2023 8:12 PM EST Curtis Weinstein MD POINT OF CARE TEST O RDERABLES [facility] [place] [address] * (ABNORMAL) Hemoglobin and Hematocrit, blood (01/11/2023 8:10 PM EST) Hemoglobin 7.5(L) 13.7 - 16.5 g/dL [facility] Hematocrit 21.6(L) 40.5 - 48.5 % [facility] Blood 01/11/2023 8:10 PM EST 01/11/2023 8:29 PM EST Narrative Resulting Agency Comment Spec In Lab Curtis Weinstein MD HEMATOLOGY ORDERABLE S Performing Organization Address [facility] Co de Phone Number [facility] [place] [address] * (ABNORMAL) Urinalysis with reflex Culture (01/11/2023 8:05 PM EST) Glucose, Urine Dipstick Negative Negative mg/dL [facility] Protein, Urine Dipstick Negative Negative mg/dL [facility] Bilirubin, Urine Dipstick Small(A) Negative mg/dL [facility] Comment: Clinical correlation required for positive Urine Bilirubin results as false positive may occur with some drugs and drug related products. If a false positive is suspected a serum total bilirubin should be considered if clinically indicated. Urobilinogen, Urine Dipstick Normal Normal mg/dL [facility] pH, Urn (dipstick) 6.0 5.0 - 8.0 [facility] Blood, Urine Dipstick Negative Negative mg/dL [facility] Ketone, Urine Dipstick Negative Negative mg/dL [facility] Nitrite, Urine Dipstick Negative Negative [facility] Leukocytes, Urine Dipstick Negative Negative mcL [facility] Appearance, Urine Dipstick Clear Clear [facility] Specific [place] Urine Automated >=1.030(A) 1.005 - 1.030 [facility] Color, Urine Dipstick Dark Yellow Yellow [facility] Reflex to Culture No [facility] Clean Catch Urine 01/11/2023 8:05 PM EST 01/11/2023 8:30 PM EST Narrative Resulting Agency Comment Spec In Lab Curtis Weinstein MD URINE ORDERABLES Performing Organization Address [facility] Co de Phone Number [facility] [place] [address] * UPPER GI ENDOSCOPY (01/11/2023 4:45 PM EST) UPPER GI ENDOSCOPY [facility] Endoscopy ___ Procedure Date: 01/11/2023 4:45 PM ? Patient Name: Monisha Argueta ? Date of : 1975 ? Age: 48 ? Order #: [id number] ? Instrument Name: [id number] ? ___ Procedure: ? Upper GI endoscopy Indications: ? Coffee-ground emesis Providers: ? Leena Smith ? Alba Glez, ? Loop Drier Operator Referring MD: ? Medicines: ? Monitored Anesthesia Care Complications: ? No immediate complications. ___ Procedure: ? Pre-Anesthesia Assessment: ? - See the other procedure note for ? documentation of the pre-procedure ? assessment. ? The procedure, indications, ? benefits, risks and alternatives ? were explained to the patient. ? Specifically discussed were ? potential complications including, ? but not limited to, bleeding, ? perforation, infection, missing a ? cancer, and adverse medication ? reactions. The Endoscope was ? introduced through the mouth, and ? advanced to the fourth part of ? duodenum The upper GI endoscopy was ? accomplished without difficulty. ? The patient tolerated the procedure ? well. ? Findings: ? Esophagogastric landmarks were identified: the Z-line ? was found at 38 cm, the gastroesophageal junction was ? found at 38 cm and the site of hiatal narrowing was ? found at 42 cm from the incisors. ? A 4 cm hiatal hernia was present. ? LA Grade D (one or more mucosal breaks involving at ? least 75% of esophageal circumference) esophagitis ? was found. ? Small (grade I varices) were found in the lower third ? of the esophagus. ? Moderate portal hypertensive gastropathy was found in ? the entire examined stomach. ? The examined duodenum was normal. ? Moderate Sedation: ? Not applicable - See Anesthesia documentation Impression: ?- Esophagogastric landmarks ? identified. ? - 4 cm hiatal hernia. ? - LA Grade D reflux esophagitis ? with oozing. ? - Grade I esophageal varices. ? Completely flattened with air ? insufflation and no stigmata of ? variceal bleeding. ? - Portal hypertensive gastropathy ? (PHG) with diffuse oozing. ? - PHG and reflux esophagitis are ? the presumed source of coffee ? ground emesis. ? - Normal examined duodenum. ? - No specimens collected. Recommendation: ?- Return patient to [facility] ? for ongoing care. ? - BID PPI ? - Continue on BID PPI at d/c ? - Repeat EGD in 8 weeks to assess ? healing ? - Recommend colonoscopy at some ? point as well given hematochezia ? last month ? Procedure Code(s): ? --- Professional --- ? 86173, Esophagogastroduode noscopy, ? flexible, transoral; diagnostic, ? including collection of specimen(s) ? by brushing or washing, when ? performed (separate procedure) CPT copyright 2021 [employer]. All rights reserved. The codes documented in this report are preliminary and upon wire frame dipper review may be revised to meet current compliance requirements. Attending Participation: ? I personally performed the entire procedure. ? Rehan Matta Rehan Matta, 01/11/2023 6:16:05 PM Number of Addenda: 0 Note Initiated On: 01/11/2023 4:45 PM [employer]OVATION 01/11/2023 4:45 PM EST Unknown GENERAL SURGICAL ORD ERABLES Performing Organization Address City/[facility] Co de Phone Number [employer] * Prepare RBC (01/11/2023 4:20 PM EST) Dispensed? Yes [facility] Blood 01/11/2023 4:20 PM EST 01/11/2023 4:20 PM EST Curtis Weinstein MD BLOOD BANK PRODUCT O RDERABLES Performing Organization Address [facility] Co de Phone Number [facility] [place] [address] * (ABNORMAL) Hemoglobin and Hematocrit, blood (01/11/2023 3:59 PM EST) Hemoglobin 6.1(L) 13.7 - 16.5 g/dL [facility] Hematocrit 17.6(L) 40.5 - 48.5 % [facility] Blood 01/11/2023 3:59 PM EST 01/11/2023 4:05 PM EST Narrative Resulting Agency Comment Spec In Lab Jed Fuller EVENT SALES MANAGER HEMATOLOGY ORDERABLE S Performing Organization Address [facility] de Phone Number [facility] [place] [address] * (ABNORMAL) L-Lactate2 Whole Blood (01/11/2023 3:10 PM EST) Lactate WB 6.2(Criti evelia) 0.5 - 2.2 mmol/L [facility] Comment: Critical notified to MAXINE BARRIENTOS MD by instrument lens inspector immediately following run time. Blood 01/11/2023 3:10 PM EST 01/11/2023 3:10 PM EST Emergency Dept CHEMISTRY ORDERABLE S Performing Organization Address City/[facility] [place] [address] * Prepare RBC (01/11/2023 2:30 PM EST) Dispensed? Yes [facility] Blood 01/11/2023 2:30 PM EST 01/11/2023 2:27 PM EST Jed Fuller EVENT SALES MANAGER BLOOD BANK PRODUCT O RDERABLES [facility] [place] [address] * CT Abdomen & Pelvis wwo Contrast (GI BLEED) (01/11/2023 2:17 PM EST) Anatomical Region Laterality Modality Abdomen, Pelvis Computed Tomogra phy Impressions 01/11/2023 2:49 PM EST 1. ??No evidence of active hemorrhage during the scan. 2. ??Large volume ascites with evidence of portal hypertension. 3. ??Shock bowel. 4. ??Nonspecific gallbladder wall thickening in the setting of ascites, which may be secondary. Thank you for letting us participate in the care of this patient. ??If you are a health care provider and have any questions regarding this report, please contact the number below. ??For patients who have questions please contact the health nurse wound care that requested your imaging first. ? Narrative 01/11/2023 2:49 PM EST EXAMINATION: CT ABDOMEN AND PELVIS WWO CONTRAST (GI BLEED) CLINICAL HISTORY: Coffee-ground emesis and dark stool. ??Tachycardic and hypotensive TECHNIQUE: Helical CT of the abdomen and pelvis before and after the intravenous administration of contrast utilizing GI bleed protocol. Administered 125.0 ml of OMNIPAQUE 350.00 mg/ml. Oral contrast was not administered. COMPARISON: None FINDINGS: The bowel is nondilated. There is diffuse small bowel and large bowel mucosal hyperenhancement without evidence of active hemorrhage. There are paraesophageal varices and there is recannulization of the umbilical vein Large volume ascites. The liver, spleen, adrenal glands, and pancreas are normal. Sludge layering within the gallbladder. Nonspecific gallbladder wall thickening. Simple cyst projecting in the left mid pole kidney. Kidneys are otherwise unremarkable. Abdominal aorta is normal in caliber and patent. Portal vein is patent. No free air. No pneumatosis. Review of bone windows is unremarkable. Procedure Note Nas Bills MD - 01/11/2023 EXAMINATION: CT ABDOMEN AND PELVIS WWO CONTRAST (GI BLEED) CLINICAL HISTORY: Coffee-ground emesis and dark stool. Tachycardic and hypotensive TECHNIQUE: Helical CT of the abdomen and pelvis before and after theintravenous administration of contrast utilizing GI bleed protocol. Administered 125.0ml of OMNIPAQUE 350.00 mg/ml. Oral contrast was not administered. COMPARISON: None FINDINGS: The bowel is nondilated. There is diffuse small bowel and large bowelmucosal hyperenhancement without evidence of active hemorrhage. 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 The liver, spleen, adrenal glands, and pancreas are normal. Sludgelayering within the gallbladder. Nonspecific gallbladder wall thickening. Simple cyst projecting in the left mid pole kidney. Kidneys areotherwise unremarkable. Abdominal aorta is normal in caliber and patent. Portal vein is patent. Nofree air. No pneumatosis. Review of bone windows is unremarkable. IMPRESSION 1. No evidence of active hemorrhage during the scan. 2. Large volume ascites with evidence of portal hypertension. 3. Shock bowel. 4. Nonspecific gallbladder wall thickening in the setting of ascites,which may be secondary. Thank you for letting us participate in the care of this patient. If youare a health care provider and have any questions regarding this report,please contact the number below. For patients who have questions please contactthe health nurse wound care that requested your imaging first. Jed Fuller EVENT SALES MANAGER IMG CT ORDERABLES * (ABNORMAL) L-Lactate2 Whole Blood (01/11/2023 1:50 PM EST) [facility] Lactate WB 6.9(Criti evelia) 0.5 - 2.2 mmol/L [facility] Comment: Critical notified to isabel nava by instrument lens inspector immediately following run time. Blood 01/11/2023 1:50 PM EST 01/11/2023 1:50 PM EST Emergency Dept CHEMISTRY ORDERABLE S Performing Organization Address City/[facility]/ZIP Co de Phone Number [facility] [place] [address] * Type and Screen Validity (01/11/2023 1:48 PM EST) [facility] T&S only valid at [facility] Comment:This Type and Screen result is only valid at the [facility] Blood 01/11/2023 1:48 PM EST 01/11/2023 2:03 PM EST Narrative Resulting Agency Comment Spec In Lab Isabel Nava MD BLOOD BANK LAB ORDER NENA Performing Organization Address City/[facility] Co de Phone Number [facility] [place] [address] * Antibody screen (01/11/2023 1:48 PM EST) [facility] Ab Screen Interp Negative [facility] Expires at [id number] on: 01/14/2023 [facility] Blood 01/11/2023 1:48 PM EST 01/11/2023 2:03 PM EST Narrative Resulting Agency Comment Spec In Lab Isabel Nava MD BLOOD BANK LAB ORDER NENA Performing Organization Address City/[facility]/[place] [address] * ABO/Rh Typing (01/11/2023 1:48 PM EST) ABORH Type O Pos [facility] Blood 01/11/2023 1:48 PM EST 01/11/2023 2:03 PM EST Narrative Resulting Agency Comment Spec In Lab Isabel Nava MD [place]LOOD [place] [address] * Stephen Tube Hold (01/11/2023 1:40 PM EST) Pathologist [facility] Stephen Hold Sample in lab. [facility] Blood Venous Draw / Unknown 01/11/2023 1:40 PM EST 01/11/2023 2:10 PM EST Isabel Nava MD CHEMISTRY ORDERABLES Performing Organization Address City/[facility]/ZIP Co de Phone Number [facility] [place] [address] * Gold Tube HOLD (01/11/2023 1:40 PM EST) Pathologist [facility] Gold Hold Sample in lab. [facility] Blood Venous Draw / Unknown 01/11/2023 1:40 PM EST 01/11/2023 2:10 PM EST Isabel Nava MD CHEMISTRY ORDERABLES Performing Organization Address City/[facility]/ZIP Co de Phone Number [facility] [place] [address] * (ABNORMAL) Differential, Automated (01/11/2023 1:40 PM EST) Neutrophil % 72.8 % [facility] Neutrophil Absolute 7.39(H) 1.70 - 6.10 x10(3)/mc L [facility] Lymph % 13.5 % [facility] Lymphocytes Abs 1.4 0.9 - 3.2 x10(3)/mc L [facility] Monocyte % 13.0 % [facility] Monocyte Abs 1.3(H) 0.3 - 0.9 x10(3)/mc L [facility] Eos % 0.1 % [facility] Eosinophils Abs 0.0 0.0 - 0.4 x10(3)/mc L [facility] Basophil % 0.1 % [facility] Baso Absolute 0.0 0.0 - 0.1 x10(3)/mc L [facility] Immature Gran % 0.50 % [facility] Comment: Immature granulocytes(IG's)percentage and absolute count will include metamyelocytes, myelocytes, and promyelocytes. Blood smears from CBCs yielding IG's will be scanned manually for concordance. If this scan disagrees with the automated IG or if promyelocytes are noted, a manual differential will be performed. Immature Gran Absolute 0.05(H) 0.00 - 0.04 x10(3)/mc L [facility] Blood 01/11/2023 1:40 PM EST 01/11/2023 2:09 PM EST Narrative Resulting Agency Comment Spec In Lab Isabel Nava MD HEMATOLOGY ORDERABLE S [facility] [place] [address] * (ABNORMAL) Hemogram (01/11/2023 1:40 PM EST) White Blood Cell 10.2(H) 4.0 - 9.5 x10(3)/mc L [facility] Red Blood Cell 2.31(L) 4.58 - 5.54 x10(6)/mc L [facility] Hemoglobin 7.5(L) 13.7 - 16.5 g/dL [facility] Hematocrit 21.6(L) 40.5 - 48.5 % [facility] Mean Cell Volume 93.5(H) 82.9 - 93.1 fL [facility] Mean Cell Hemoglobin 32.5(H) 27.5 - 32.1 pg [facility] Mean Cell Hemoglobin Concentration 34.7 32.0 - 35.7 g/dL [facility] Platelet 245 145 - 357 x10(3)/mc L [facility] RDW Standard Deviation 48.9(H) 36.0 - 45.0 fL [facility] RDW coefficient of variation 14.6(H) 11.4 - 13.8 % [facility] Mean Platelet Volume 9.9 7.6 - 12.9 fL [facility] NRBC% auto 0.0 % [facility] NRBC Absolute 0.000 0.000 - 0.000 x10(3)/mc L [facility] Blood 01/11/2023 1:40 PM EST 01/11/2023 2:09 PM EST Narrative Resulting Agency Comment Spec In Lab Isabel Nava MD HEMATOLOGY ORDERABLE S Performing Organization Address [facility] Co de Phone Number [facility] [place] [address] * Ammonia (01/11/2023 1:40 PM EST) Ammonia 23 16 - 60 mcmol/L [facility] Blood 01/11/2023 1:40 PM EST 01/11/2023 1:56 PM EST Narrative Resulting Agency Comment Spec In Lab Jed Fuller APRN CHEMISTRY ORDERABLES Performing Organization Address [facility] de Phone Number [facility] [place] [address] * (ABNORMAL) APTT (01/11/2023 1:40 PM EST) Partial Thromboplastin Time 38(H) 25 - 37 sec [facility] Comment: The PTT is NOT appropriate for heparin monitoring. Use the Anti-Xa level for heparin monitoring (HEP UFH) or LMWH monitoring (HEP LMW). A PTT less than 37 seconds generally indicates adequate hemostasis. Blood 01/11/2023 1:40 PM EST 01/11/2023 2:09 PM EST Narrative Resulting Agency Comment Spec In Lab Isabel Nava MD HEMATOLOGY ORDERABLE S Performing Organization Address City/[facility] Co de Phone Number [facility] [place] [address] * (ABNORMAL) Prothrombin Time (01/11/2023 1:40 PM EST) Prothrombin Time 20.6(H) 9.4 - 12.5 sec [facility] International Normalization Ratio 1.8 [facility] Comment: An INR <2.0 indicates [...] be appropriate depending on clinical circumstances. Blood 01/11/2023 1:40 PM EST 01/11/2023 2:09 PM EST Narrative Resulting Agency Comment Spec In Lab Isabel Nava MD HEMATOLOGY ORDERABLE S Performing Organization Address City/[facility] Co de Phone Number [facility] [place] [address] * Phosphorus (01/11/2023 1:40 PM EST) Phosphorus 4.0 2.5 - 4.5 mg/dL [facility] Blood 01/11/2023 1:40 PM EST 01/11/2023 2:09 PM EST Narrative Resulting Agency Comment Spec In Lab Isabel Nava MD CHEMISTRY ORDERABLES Performing Organization Address City/[facility] Co de Phone Number [facility] [place] [address] * Magnesium (01/11/2023 1:40 PM EST) Magnesium 0.74 0.69 - 1.07 mmol/L [facility] Blood 01/11/2023 1:40 PM EST 01/11/2023 2:09 PM EST Narrative Resulting Agency Comment Spec In Lab Isabel Nava MD CHEMISTRY ORDERABLES Performing Organization Address City/[facility]/ZIP Co de Phone Number [facility] [place] [address] * Lipase (01/11/2023 1:40 PM EST) Lipase 35 0 - 60 unit/L [facility] Blood 01/11/2023 1:40 PM EST 01/11/2023 2:09 PM EST Narrative Resulting Agency Comment Spec In Lab Isabel Nava MD CHEMISTRY ORDERABLES [facility] [place] [address] * (ABNORMAL) Comprehensive metabolic panel (non-fasting) (01/11/2023 1:40 PM EST) Glucose 157 65 - 199 mg/dL [facility] Comment:Diabetes: >=200 mg/d L plus symptoms Blood Urea Nitrogen 35(H) 10 - 20 mg/dL [facility] Creatinine 0.51(L) 0.80 - 1.50 mg/dL [facility] Sodium 135 135 - 145 mmol/L [facility] Potassium 3.6 3.5 - 5.0 mmol/L [facility] Comment: Please note: ??Patients with WBC >100,000 may have falsely elevated Potassium levels. ??For accurate Potassium quantification in these patients send serum separator tube (gold top) for subsequent determinations. ??Contact the Clinical Chemistry Laboratory if there are any questions. Chloride 93(L) 98 - 107 mmol/L [facility] Carbon Dioxide 23 22 - 31 mmol/L [facility] Anion Gap 19(H) 5 - 15 mmol/L [facility] Calcium 8.8 8.5 - 10.5 mg/dL [facility] Protein, Total 5.6(L) 6.1 - 8.0 g/dL [facility] Albumin 2.9(L) 3.2 - 5.2 g/dL [facility] Aspartate Aminotransferase 34 0 - 39 unit/L [facility] Alanine Aminotransferase 12 0 - 55 unit/L [facility] Alkaline Phosphatase 88 40 - 130 unit/L [facility] Bilirubin, Total 8.2(H) 0.2 - 1.3 mg/dL [facility] Est Glomerular Filtration Rate 124 >=60 mL/min/1. 73 m?? [facility] Comment: This patient's estimated [...] and symptoms in addition to eGFR. Blood 01/11/2023 1:40 PM EST 01/11/2023 2:09 PM EST Narrative Resulting Agency Comment Spec In Lab Isabel Nava MD CHEMISTRY ORDERABLES Performing Organization Address City/[facility]/ZIP Co de Phone Number [facility] [place] [phone] * EKG 12 Lead (01/11/2023 1:37 PM EST) Ventricular rate 119 BPM MUSE SYSTEM Atrial Rate 119 BPM MUSE SYSTEM P-R Interval 112 ms MUSE SYSTEM QRS Duration 84 ms MUSE SYSTEM Q-T Interval 370 ms MUSE SYSTEM QTC Calculated (Bezet) 520 ms MUSE SYSTEM Calculated P [place] 72 degrees MUSE SYSTEM Calculated R [place] 88 degrees MUSE SYSTEM Calculated T [place] 46 degrees MUSE SYSTEM INTERPRETATION Sinus tachycardia Prolonged QT Abnormal ECG No previous ECGs available Confirmed by MD John, Jermaine Ojeda ([id number]) on 01/11/2023 4:13:56 PM MUSE SYSTEM 01/11/2023 1:37 PM EST 01/11/2023 4:13 PM EST Isabel Nava MD ECG ORDERABLES MUSE SYSTEM documented in this encounter Visit Diagnoses Diagnosis Acute GI bleeding- Primary Hemorrhage of gastrointestinal tract, unspecified Acute GI bleeding Hemorrhage of gastrointestinal tract, unspecified Shock bowel Unspecified vascular insufficiency of intestine Jaundice Jaundice, unspecified, not of Hyperbilirubinemia Jaundice, unspecified, not of Hypovolemic shock Other shock without mention of trauma Alcoholic cirrhosis of liver with ascites Alcoholic cirrhosis of liver Alcoholic cirrhosis of liver with ascites Alcoholic cirrhosis of liver Right inguinal hernia Inguinal hernia without mention of obstruction or gangrene, unilateral or unspecified, (not specified as recurrent) documented in this encounter Admitting Diagnoses Diagnosis Acute GI bleeding Hemorrhage of gastrointestinal tract, unspecified documented in this encounter Administered Medications Inactive Administered Medications - up to 3 most recent administrations Medication Order MAR Action Action Date Dose Rate Site albumin (human) 25% 50 mL intravenous solution 12.5 g, Intravenous, EVERY 15 MIN, 2 doses, First dose on Tue01/12/23 at 1600, Last dose on Tue01/12/23 at 1615, Total dose equals 25 gm (2 bottle). Administer over each over 15 mins., Routine New Bag 01/12/2023 4:15 PM EST 12.5 g New Bag 01/12/2023 4:00 PM EST 12.5 g cefTRIAXone (Rocephin) 1 g vial attach to sodium chloride 0.9% 50 mL Mini-Bag Plus 1 g, Intravenous, ONCE, 1 dose, On Tue01/11/23 at 1423, Administer over 30 Minutes, Indication for (Active or Suspected): GI/Intra-abdominal New Bag 01/11/2023 2:27 PM EST 1 g 100 mL/hr cefTRIAXone (Rocephin) 1 g vial attach to sodium chloride 0.9% 50 mL Mini-Bag Plus 1 g, Intravenous, EVERY 24 HOURS, First dose (after last modification) on Tue01/12/23 at 1400, Until Discontinued, Administer over 30 Minutes, Indication for (Active or Suspected): GI/Intra-abdominal New Bag 01/13/2023 1:45 PM EST 1 g 100 mL/hr New Bag 01/12/2023 1:15 PM EST 1 g 100 mL/hr folic acid (Vitamin B9) tablet 1,000 mcg 1,000 mcg, Oral, DAILY, First dose on Tue01/12/23 at 1315, Until Discontinued, Routine Given 01/13/2023 8:55 AM EST 1,000 mcg Given 01/12/2023 1:07 PM EST 1,000 mcg iohexoL (Omnipaque) (350 mg/mL) solution 0-200 mL 0-200 mL, Intravenous, ONCE PRN, 1 dose, Starting on Tue01/11/23 at 1417, Until Tue01/11/23 at 1417, Per Protocol, Warning Vesicant/Irritant Medication , Radiology Contrast, Routine Given 01/11/2023 2:17 PM EST 125 mLs lactated Ringers 1,000 mL IV bolus at 1,000 mL/hr, Intravenous, ONCE, 1 dose, On Tue01/11/23 at 1943 New Bag 01/11/2023 8:44 PM EST 1000 mL/hr lactulose (Chronulac) (0.67 gram/mL) oral liquid 20 g 20 g, Oral, 3 TIMES DAILY, First dose on Tue01/11/23 at 2100, Until Discontinued, Routine Given 01/13/2023 8:55 AM EST 20 g Given 01/12/2023 8:48 PM EST 20 g Given 01/12/2023 4:01 PM EST 20 g melatonin tablet 3 mg 3 mg, Oral, NIGHTLY, First dose on Tue01/11/23 at 2245, Until Discontinued, Routine Given 01/12/2023 8:48 PM EST 3 mg Given 01/11/2023 10:26 PM EST 3 mg metoclopramide (Reglan) (5 mg/mL) injection 10 mg 10 mg, Intravenous, ONCE, 1 dose, On Tue01/11/23 at 1433, Doses greater than 10mg should be diluted into 50ml NS., STAT Given 01/11/2023 2:34 PM EST 10 mg multivitamin with minerals (Thera M) tablet 1 tablet 1 tablet, Oral, DAILY, First dose on Tue01/12/23 at 1315, Until Discontinued, Routine Given 01/13/2023 8:55 AM EST 1 tablet Given 01/12/2023 1:07 PM EST 1 tablet octreotide (SandoSTATIN) (100 mcg/mL) injection 50 mcg 50 mcg, Intravenous, ONCE, 1 dose, On Tue01/11/23 at 1423, STAT Given 01/11/2023 2:23 PM EST 50 mcg octreotide (SandoSTATIN) (5 mcg/mL) in sodium chloride 0.9% 100 mL infusion 50 mcg/hr (10 mL/hr), Intravenous, CONTINUOUS, Starting on Tue01/11/23 at 1427, Until Tue01/11/23 at 2103 New Bag 01/11/2023 3:02 PM EST 50 mcg/hr 10 mL/hr ondansetron (pf) (Zofran) (2 mg/mL) injection 4 mg 4 mg, Intravenous, ONCE, 1 dose, On Tue01/11/23 at 1330, STAT Given 01/11/2023 1:51 PM EST 4 mg pantoprazole (Protonix) injection 40 mg 40 mg, Intravenous, DAILY, First dose on Tue01/11/23 at 1313, Until Discontinued, Reconstitute with 10 mL of normal saline to a concentration of 4 mg/mL and inject slowly over 2 minutes. Given 01/12/2023 8:23 AM EST 40 mg Given 01/11/2023 1:42 PM EST 40 mg pantoprazole (Protonix) injection 40 mg 40 mg, Intravenous, 2 TIMES DAILY, First dose (after last modification) on Tue01/12/23 at 2100, Until Discontinued, Reconstitute with 10 mL of normal saline to a concentration of 4 mg/mL and inject slowly over 2 minutes. Given 01/13/2023 8:55 AM EST 40 m g Given 01/12/2023 8:48 PM EST 40 mg potassium chloride ER (Klor-Con M) crystal tablet 40 mEq 40 mEq, Oral, 2 TIMES DAILY, 2 doses, First dose on Tue01/13/23 at 1400, Last dose on Tue01/13/23 at 2100, potassium chloride ER particle/crystal tablets (Klor-Con M) may be broken in half and each half swallowed separately. Tablets can be dissolved in ~4 ounces of water; allow ~2 minutes to dissolve, stir well and drink immediately. Do not crush, chew, or suck on tablet., Routine Given 01/13/2023 1:45 PM EST 40 mEq potassium chloride ER (Klor-Con M) crystal tablet 40 mEq 40 mEq, Oral, 2 TIMES DAILY, 1 dose, First dose (after last modification) on Tue01/13/23 at 1530, potassium chloride ER particle/crystal tablets (Klor-Con M) may be broken in half and each half swallowed separately. Tablets can be dissolved in ~4 ounces of water; allow ~2 minutes to dissolve, stir well and drink immediately. Do not crush, chew, or suck on tablet., Routine Given 01/13/2023 3:28 PM EST 40 mEq sodium chloride 0.9% 1,000 mL IV bolus Intravenous, ONCE, 1 dose, On Tue01/11/23 at 1612 New Bag 01/11/2023 4:16 PM EST 2000 mL/hr sodium chloride 0.9% 2,000 mL IV bolus Intravenous, ONCE, 1 dose, On Tue01/11/23 at 1313 New Bag 01/11/2023 1:53 PM EST thiamine (Vitamin B-1) tablet 50 mg 50 mg, Oral, DAILY, First dose on Tue01/12/23 at 1315, Until Discontinued, Routine Given 01/13/2023 8:55 AM EST 50 mg Given 01/12/2023 1:07 PM EST 50 mg documented in this encounter Active and Recently Administered Medications Times are shown in EST. Scheduled Medication Order 01/11/2023 01/12/2023 01/13/2023 albumin (human) 25% 50 mL intravenous solution (COMPLETED) 12.5 g, Intravenous, EVERY 15 MIN, 2 doses, First dose on Tue01/12/23 at 1600, Last dose on Tue01/12/23 at 1615, Total dose equals 25 gm (2 bottle). Administer over each over 15 mins., Routine 1600 (New Bag - Provider: Precious Momin RN)1614 (Stopped - Provider: Precious Momin RN)1615 (New Bag - Provider: Precious Momin RN)1630 (Stopped - Provider: Mary Rodrigues RN) cefTRIAXone (Rocephin) 1 g vial attach to sodium chloride 0.9% 50 mL Mini-Bag Plus (COMPLETED) 1 g, Intravenous, ONCE, 1 dose, On Tue01/11/23 at 1423, Administer over 30 Minutes, Indication for (Active or Suspected): GI/Intra-abdominal 1427 (New Bag - Provider: Maddie Buckley, KARYNA)1457 (Stopped - Provider: Maddie Buckley, KARYNA) cefTRIAXone (Rocephin) 1 g vial attach to sodium chloride 0.9% 50 mL Mini-Bag Plus 1 g, Intravenous, EVERY 24 HOURS, First dose (after last modification) on Tue01/12/23 at 1400, Until Discontinued, Administer over 30 Minutes, Indication for (Active or Suspected): GI/Intra-abdominal 1315 (New Bag - Provider: Mary Rodrigues RN)1345 (Stopped - Provider: Mary Rodrigues RN) 1345 (New Bag - Provider: Anabella Sorto RN)1415 (Stopped - Provider: Anabella Sorto RN) folic acid (Vitamin B9) tablet 1,000 mcg 1,000 mcg, Oral, DAILY, First dose on Tue01/12/23 at 1315, Until Discontinued, Routine 1307 (Given - Provider: Mary Rodrigues RN) 0855 (Given - Provider: Anabella Sorto RN) lactated Ringers 1,000 mL IV bolus (COMPLETED) at 1,000 mL/hr, Intravenous, ONCE, 1 dose, On Tue01/11/23 at 1943 2044 (New Bag - Provider: Barbara Mitchell RN)2144 (Stopped - Provider: Barbara Mitchell RN) lactulose (Chronulac) (0.67 gram/mL) oral liquid 20 g 20 g, Oral, 3 TIMES DAILY, First dose on Tue01/11/23 at 2100, Until Discontinued, Routine 2226 (Given - Provider: Barbara Mitchell RN) 0823 (Given - Provider: Mary Rodrigues RN)1601 (Given - Provider: Mary Rodrigues RN)2048 (Given - Provider: Barbara Mitchell RN) 0855 (Given - Provider: Anabella Sorto RN)1500 (Not Given - Provider: Anabella Sorto RN - Reason: See comment - Comment: per ) melatonin tablet 3 mg 3 mg, Oral, NIGHTLY, First dose on Tue01/11/23 at 2245, Until Discontinued, Routine 2226 (Given - Provider: Barbara Mitchell RN) 2048 (Given - Provider: Barbara Mitchell RN) metoclopramide (Reglan) (5 mg/mL) injection 10 mg (COMPLETED) 10 mg, Intravenous, ONCE, 1 dose, On Tue01/11/23 at 1433, Doses greater than 10mg should be diluted into 50ml NS., STAT 1434 (Given - Provider: Maddie Buckley RN) multivitamin with minerals (Thera M) tablet 1 tablet 1 tablet, Oral, DAILY, First dose on Tue01/12/23 at 1315, Until Discontinued, Routine 1307 (Given - Provider: Mary Rodrigues, KARYNA) 0855 (Given - Provider: Anabella Ellis V, RN) octreotide (SandoSTATIN) (100 mcg/mL) injection 50 mcg (COMPLETED) 50 mcg, Intravenous, ONCE, 1 dose, On Tue01/11/23 at 1423, STAT 1423 (Given - Provider: Maddie Buckley, KARYNA) ondansetron (pf) (Zofran) (2 mg/mL) injection 4 mg (COMPLETED) 4 mg, Intravenous, ONCE, 1 dose, On Tue01/11/23 at 1330, STAT 1351 (Given - Provider: Maddie Buckley RN) pantoprazole (Protonix) injection 40 mg (CANCELED) 40 mg, Intravenous, DAILY, First dose on Tue01/11/23 at 1313, Until Discontinued, Reconstitute with 10 mL of normal saline to a concentration of 4 mg/mL and inject slowly over 2 minutes. 1342 (Given - Provider: Maddie Buckley RN)1730 (MAY Hold - Provider: Admin Adt - Reason: Transfer to a Procedural area)1816 (MAY Unhold - Provider: Admin Adt) 0823 (Given - Provider: Mary Rodrigues RN) pantoprazole (Protonix) injection 40 mg 40 mg, Intravenous, 2 TIMES DAILY, First dose (after last modification) on Tue01/12/23 at 2100, Until Discontinued, Reconstitute with 10 mL of normal saline to a concentration of 4 mg/mL and inject slowly over 2 minutes. 2047 (Given - Provider: Barbara Mitchell RN) 0855 (Given - Provider: Anabella Sorto RN) potassium chloride ER (Klor-Con M) crystal tablet 40 mEq (CANCELED) 40 mEq, Oral, 2 TIMES DAILY, 2 doses, First dose on Tue01/13/23 at 1400, Last dose on Tue01/13/23 at 2100, potassium chloride ER particle/crystal tablets (Klor-Con M) may be broken in half and each half swallowed separately. Tablets can be dissolved in ~4 ounces of water; allow ~2 minutes to dissolve, stir well and drink immediately. Do not crush, chew, or suck on tablet., Routine 1345 (Given - Provider: Anabella Sorto RN) potassium chloride ER (Klor-Con M) crystal tablet 40 mEq (COMPLETED) 40 mEq, Oral, 2 TIMES DAILY, 1 dose, First dose (after last modification) on Tue01/13/23 at 1530, potassium chloride ER particle/crystal tablets (Klor-Con M) may be broken in half and each half swallowed separately. Tablets can be dissolved in ~4 ounces of water; allow ~2 minutes to dissolve, stir well and drink immediately. Do not crush, chew, or suck on tablet., Routine 1528 (Given - Provider: Anabella Sorto RN) sodium chloride 0.9% 1,000 mL IV bolus (COMPLETED) Intravenous, ONCE, 1 dose, On Tue01/11/23 at 1612 1616 (New Bag - Provider: Maddie Buckley RN) sodium chloride 0.9% 2,000 mL IV bolus (COMPLETED) Intravenous, ONCE, 1 dose, On Tue01/11/23 at 1313 1353 (New Bag - Provider: Maddie Buckley RN) thiamine (Vitamin B-1) tablet 50 mg 50 mg, Oral, DAILY, First dose on Tue01/12/23 at 1315, Until Discontinued, Routine 1307 (Given - Provider: Mary Rodrigues RN) 0855 (Given - Provider: Anabella Sorto RN) Continuous Medication Order 01/11/2023 01/12/2023 01/13/2023 octreotide (SandoSTATIN) (5 mcg/mL) in sodium chloride 0.9% 100 mL infusion (CANCELED) 50 mcg/hr (10 mL/hr), Intravenous, CONTINUOUS, Starting on Tue01/11/23 at 1427, Until Tue01/11/23 at 2103 1502 (New Bag - Provider: Maddie Buckley RN)1730 (MAY Hold - Provider: Admin Adt - Reason: Transfer to a Procedural area)1816 (MAR Unhold - Provider: Admin Adt)210 (Stopped - Provider: Barbara Mitchell RN) PRN Medication Order 01/11/2023 01/12/2023 01/13/2023 iohexoL (Omnipaque) (350 mg/mL) solution 0-200 mL (COMPLETED) 0-200 mL, Intravenous, ONCE PRN, 1 dose, Starting on Tue01/11/23 at 1417, Until Tue01/11/23 at 1417, Per Protocol, Warning Vesicant/Irritant Medication , Radiology Contrast, Routine 1417 (Given - Provider: Monica Jane, RT) documented in this encounter Care Teams Brake [employer]ining Curer Relationship Specialty Start Date End Date Unknown None PCP - General 12/21/13 02/10/23 documented as of this encounter
--- OUTSIDE RECORDS SUMMARY | 2023-12-26 11:43 | XMS_ITS | Encounter Summary ---
[place] [address] Care Team Providers Care Yarn Washer Name Role Phone Unknown Primary Care Provider Unavailabl e Reason for Visit * Reason Comments Dehydration * Auth/Cert (Routine) Specialty Diagnoses / Procedures Referred By Renata t Referred To Contact Diagnoses Hypovolemic shock Hyperbilirubinemia Jaundice Acute GI bleeding Shock bowel Procedures ER Curtis Piper MD [facility] [place] [address] [facility] Referral ID Status Reason Start Date Expiration Date Visits Re quested Visits Authorized [id number] 1 1 Encounter Details Date Type Department Care Team (Late st Contact Info) Description 01/11/2023 4:05 PM EST - 01/11/2023 4:50 PM EST [place] [address] Rehan Matta MD [facility] [place] [address] EGD, UPPER GI ENDOSCOPY (WRVU 2.09) Social History Tobacco Use Types Packs/Day Years Used Date Smoking Tobacco: Every Day Cigarettes 1.5 30 Smokeless Tobacco: Never Tobacco Cessation:Ready to Q uit: No; Counseling Given: Yes Alcohol Use Standard Drinks/Week Comments Never 0 (1 standard drink = 0.6 oz pur e alcohol) [facility] Inpatient Questions Answer Date Recorded Does [...] Sign Reading Time Taken Comments Blood Pressure 106/67 01/11/2023 4:45 PM EST Pulse 120 01/11/2023 4:45 PM EST Temperature 37 ??C (98.6 ??F) 01/11/2023 3:40 PM EST Respiratory Rate 23 01/11/2023 4:45 PM EST Oxygen Saturation 99% 01/11/2023 4:45 PM EST Inhaled Oxygen Concentration - - Weight 72.6 kg (160 lb) 01/11/2023 12:54 PM EST Height - - Body Mass Index 22.72 01/11/2023 8:00 PM [...] tobacco use disorder, esophageal varices, presenting to [facility] with coffee ground emesis and melena now s/p EGD revealing likely esophagitis/gastropathy Follow-up Recommendations for Providers: -Please note AMA discharge due to family emergency. Patient understood risks and benefits of leaving, and had capacity to do so -Patient does not have a PCP, not previously scheduled in [facility] hepatology -Patient to have BOM clinic visit in short order, [facility] GI alerted of need for close follow-up, urgent referral made -Patient to continue on Lasix and spironolactone and PPI -Please note that patient had distended abdomen (not painful), and 2+ pitting edema almost to the knees prior to discharge -GI to schedule endoscopy in 8 weeks, patient also to have colonoscopy to evaluate hematochezia. Consider scheduling both at once. -From [facility] discharge summary for work-up cirrhosis: Cirrhosis workup [...] the following test completed on: 01/11/[address] [facility] Argueta Test-Emmet Diagnosis: Authorizing Provider: Angy Spivey MD Discharge [...] coffee-ground emesis. Patient was recently admitted to [facility] 11/25-11/30 with similar symptoms and underwent EGD [...] week. Last drink was in November before [facility] mis burton. ED course: Patient was hypotensive [...] On 01/14, patient had requested to leave AMA due to family emergency. Patient understood risks and benefits of leaving, and had capacity to do so. Patient does not have a PCP, not previously scheduled in [facility] hepatology. Patient to have BOM clinic visit in short order, [facility] GI alerted of need for close follow- [...] hematochezia. Consider scheduling both at once. From [facility] discharge summary for work-up cirrhosis: Cirrhosis workup [...] and Lab Data: Recent Labs 01/13/23 0845 01/13/230 01/12/23 1600 01/12/23 0442 01/12/23 0208 WBC 7.4 7.3 -- -- 10.5* HGB 8.3* 8.3* 6.8* 7.4* < > 7.6* HCT 23.1* 23.1* 19.0* 21.4* < > 21.7* PLATELET 125* 126* -- -- 143* < > = values in this interval not displayed. Recent Labs 01/13/2312901/12/23 0208 01/11/23 1340 NA 129* 128* 135 [...] 12 ALKPHOS 67 68 88 Recent Labs 01/13/230 01/12/23 0208 01/11/23 1340 INR 1.9 1.7 1.8 PTT 39* 35 38* No results for input(s): HA1C in the last 168 hours. No results for input(s): TSH in the last 168 hours. No results for input(s): HDL, LDLCHOL, CHOLHDL, TRIG, CHLPL in the last 168 hours. Microbiology Results (Last 30 days) Procedure Component Value Units Date/Time Body Fluid Culture, Aerobic & Anaerobic Peritoneal Fluid [[id number]] Collected: 01/12/23 1640 Lab Status: Preliminary result Specimen: Peritoneal Fluid Updated: 01/13/23 1436 Body Fluid Culture, Aerobic [[id number]] Collected: 01/12/23 1640 Lab Status: Preliminary result Specimen: Peritoneal Fluid Updated: 01/13/23 0759 Body Fluid Culture No growth to date. Gram Stain -- Cytocentrifuge Gram Stain performed No Neutrophils seen. No microorganisms seen. Anaerobic Culture [[id number]] Collected: 01/12/23 1640 Lab Status: Preliminary result Specimen: Peritoneal Fluid Updated: 01/13/23 1436 Anaerobic Culture No anaerobic organisms isolated to date Blood culture [[id number]] Collected: 01/12/23 1255 Lab Status: Preliminary result Specimen: Blood Updated: 01/13/23 1501 Blood Culture No growth at 1 day. Blood culture [[id number]] Collected: 01/12/23 1246 Lab Status: Preliminary result [...] who have questions please contact the health child care supervisor that requested your imaging first. Electronically signed by: Nas Bills MD, [facility] ([phone]), at 01/11/2023 2:49 PM US Abdomen Vascular Limited Hepatology Protocol (Exam End: [...] mm. CBD: 3.5 mm. 5. Mild splenomegaly. Electronically signed by: Neena Davis MD, [facility] ([phone]), at 01/13/2023 10:01 AM Thank you for letting us participate in the care of this patient. If you are a health care provider and have any questions regarding this report, please contact the number above. For patients who have questions, please contact the health child care supervisor that requested your imaging first. Neena Davis, [...] who have questions please contact the health child care supervisor that requested your imaging first. Electronically signed by: Maddie Schuster MD, [facility] ([phone]), at 01/12/2023 1:31 PM Discharge Condition: Guarded, but not critical. AMA [...] Department Dept Phone 01/24/2023 2:30 PM JOE LUNA, CLINIC Internal Medicine at [facility] Arrive at: [employer] [facility] [phone] Future Orders Complete By Expires Referral to Gastroenterology [REF25 Custom] As directed Process Instructions: If requesting a colonoscopy please use [id number] AMB REFERRAL TO COLONOSCOPY PROCEDURE. This referral request is for evaluation and treatment of gastrointestinal health concerns. Scheduling Instructions: Comments: Press F2 to select a diagnosis and magnifying glass (F3) to enlarge workspace: I am referring to Gastroenterology Hepatology my 48 y.o. male patient Monisha Argueta for evaluation. My clinical question: 48 y/o with relatively new diagnosis of cirrhosis. First discovered at [facility] in11/2022. Alcohol use disorder. Labs drawn at [facility] for further workup in DC summary (Cirrhosis [...] EBV neg). Had varices and esophagitis at [facility]. Presented to [facility] after running out of meds and was found to have non-variceal UGIB. Discharging AMA from [facility] due to family emergency (daughter in car [...] Provider Department Center 01/24/2023 2:30 PM [facility] Your Inpatient Doctor(s) at [facility]: Dr. Franklin Hobbs The Department of Hospital [...] beany issues or concerns once you leave [facility], we apologize for any undue [...] Provider Department Center 01/24/2023 2:30 PM [facility] Your Inpatient Doctor(s) at [facility]: Dr. Franklin Hobbs The Department of Hospital [...] beany issues or concerns once you leave [facility], we apologize for any undue [...] spent >30 minutes (Day of Discharge Code 66155) involved in the final examination of the [...] cirrhosis c/b ascites and recent admission to [facility] (11/25/22-11/30/22) for upper GI bleed and volume [...] cirrhosis c/b ascites and recent admission to [facility] (11/25/22- 11/30/22) for upper GI bleed and [...] M.D. Fellow in Gastroenterology and Hepatology Pager #[phone] 01/12/2023 Associated attestation - Rehan Matta MD - 01/14/2023 11:27 AM EST ATTENDING ATTESTATION: I have seen, examined, and discussed the patient with the GI fellow Dr. Kuo and I agree withthe findings, assessment, and plan as written. Rehan Matta MD, FRCPC Attending Staff Section of Gastroenterology and Hepatology Pager [phone] * Curtis Weinstein MD - 01/12/2023 7:16 [...] cirrhosis c/b ascites and recent admission to [facility] (11/25/22- 11/30/22) for upper GI bleed and [...] for the past 168 hrs: Weight 01/11/23 2000 73.9 kg (162 lb 14.7 oz) 01/11/23 [...] in the last 7068 hours. Invalid input(s): LONROXEAPHO7F Recent Labs 01/11/23 2012 POCGLU 166 Heme [...] Mixed Venous Sat No results for input(s): J0LCJD5 in the last 168 hours. Microbiology: Microbiology [...] who have questions please contact the health child care supervisor that requested your imaging first. Medications Scheduled [...] cirrhosis c/b ascites and recent admission to [facility] (11/25/22- 11/30/22) for upper GI bleed and [...] - 01/12/2023 6:36 AM EST ICU Blue (#[id number]) Progress Note Patient Info: Name: Monisha Argueta [...] 01/11/231999 73.9 kg (162 lb 14.7 oz) 01/11/231253 72.6 kg (160 lb) Admit wt: 72.58 [...] impregnated cap applied;blood return, able to obtain 01/12/23 0400 Phlebitis 0-->no symptoms 01/12/23599 Infiltration 0-->no symptoms [...] flushed without difficulty;alcohol impregnated cap applied 01/12/23 0400 Phlebitis 0-->no symptoms 01/12/23599 Infiltration 0-->no symptoms 01/12/23599 Site Signs/Symptoms no swelling;no redness;no warmth;no pain;no palpable cord;no streak formation;no drainage 01/11/231999 Labs: Recent Labs 01/12/23 0745 01/12/23 0442 01/12/238 01/11/23200901/11/23 1559 01/11/23 1340 WBC -- -- [...] in the last 7068 hours. Invalid input(s): [id number] Recent Labs 01/11/23 2012 POCGLU 166 Heme [...] Mixed Venous Sat No results for input(s): A7DVJH6 in the last 168 hours. Microbiology: Microbiology [...] who have questions please contact the health child care supervisor that requested your imaging first. Electronically signed by: Nas Bills MD, [facility] ([phone]), at 01/11/2023 2:49 PM Medications Scheduled Meds: pantoprazole 40 mg Intravenous [...] Diet/ nutrition: Daily Healthy Menu Choices/Cardiac diet ([facility]-Diet) 2 GM NA Last BM:01/12/2023 DVT prophylaxis: SCD GI prophylaxis: pantoprazole 40 mg IV BID Code status: Attempt Cardiopulmonary Resuscitation - Inpatient Family update last performed 01/12/2023 Belén Mae * Josh Castaneda MD - 01/11/2023 7:10 PM EST CRITICAL CARE ATTENDING This 48 y.o. year old male was admitted to [facility] with GI bleeding. I have personally examined [...] portal hypertensive gastropathy. He was admitted to [facility] for further management. He notes roughly 2 [...] tobacco use disorder, esophageal varices, presenting to [facility] with coffee ground emesis and melena s/p EGD revealing likely esophagitis/gastropathy now transferred from MICU to hospital medicine. SUBJECTIVE History of Present Illness: Monisha Argueta is a 48 y.o. male with PMH of AUD, alcoholic cirrhosis, tobacco use disorder, esophageal varices, presenting to [facility] with coffee ground emesis and melena s/p EGD revealing likely esophagitis/gastropathy now transferred from MICU to hospital medicine. Per MICU HPI 01/11/2023: Patient reports he has had worsening nausea/vomiting over the last 24h. He notes that the melena and emesis started last night and we will This morning he had a second episode of coffee-ground emesis. Patient was recently admitted to [facility] 11/25-11/30 with similar symptoms and underwent EGD [...] week. Last drink was in November before [facility] mis [place]. ED course: Patient was hypotensive [...] to transfer and he is NPO at [place] for a RUQ US to rule out PVT. On interview, he denies any complaints. No further episodes of blood in stool since admission. He denies nausea/vomiting, dizziness, chest pain, or shortness of breath. He was drinking 12 drinks a day but has not had a drink since November when he was hospitalized at [facility]. Review of Systems (Positives in Bold): See HPI. Past Medical History: No past medical history on file. Patient Active Problem List Diagnosis Code Alcoholic cirrhosis of liver with ascites K70.31 Acute GI bleeding K92.2 Past Surgical History: Past Surgical History: Procedure Laterality Date PRO UPPER GI ENDOSCOPY, DIAGNOSTIC N/A 01/11/2023 EGD, UPPER GI ENDOSCOPY (WRVU 2.09) performed by Rehan Matta MD at [facility] ENDOSCOPY Social History: Social History Socioeconomic History [...] for the past 168 hrs: Weight 01/11/23 2000 73.9 kg (162 lb 14.7 oz) 01/11/23 [...] in the last 7068 hours. Invalid input(s): NNRNVLZIZWA2N No results for input(s): HA1C in the last 7068 hours. Lipids: Heme: No results for input(s): LDH, HAPTOGLOBIN, URICACID in the last 168 hours. ABG (Arterial Blood Gas): No results found for: PHART, PO2ART, TOH2VRT, CPW8CLR VBG (Venous Blood Gas): No results for input(s): PHVEN, YQE4OXI, PO2VEN, PMI0WMI, BEVEN, UPC3NMR in the last 72hours. EKG: Lab Results [...] who have questions please contact the health child care supervisor that requested your imaging first. Electronically signed by: Nas Bills MD, [facility] ([phone]), at 01/11/2023 2:49 PM XR Chest One View (Exam End: 01/12/2023 1:00 PM) Impression No acute cardiopulmonary disease is detected in the setting of sepsis. Thank you for letting us participate in the care of this patient. If you are a health care provider and have any questions regarding this report, please contact the number below. For patients who have questions please contact the health child care supervisor that requested your imaging first. Electronically signed by: Maddie Schuster MD, [facility] ([phone]), at 01/12/2023 1:31 PM Medications: Scheduled: pantoprazole 40 mg Intravenous BID [...] tobacco use disorder, esophageal varices, presenting to [facility] with coffee ground emesis and melena s/p [...] BID Diet: Daily Healthy Menu Choices/Cardiac diet ([facility]-Diet) 2 GM NA NPO diet (Give Meds) Lines: PIV 01/11/23 1503 18 gauge;1 in length median cubital vein (antecubital fossa), left (Active) Number of days: 1 PIV 01/11/23 1756 16 gauge metacarpal vein (top of hand), left (Active) Number of days: 0 Level of care: Med/surg Vitals: Q4H D/c planning: Pending clinical course Code status: FULL CODE Zaynab Denney MD Internal Medicine PGY2 [facility] Medicine, Pager #[phone] Associated attestation - Galina Key, - 01/12/2023 9:34 PM EST 48M with [...] tobacco use disorder, esophageal varices, presenting to [facility] with coffee ground emesis and melena now s/p EGD revealing likely esophagitis/gastropathy Patient reports he has had worsening nausea/vomiting over the last 24h. He notes that the melena and emesis started last night and we will This morning he had a second episode of coffee-ground emesis. Patient was recently admitted to [facility] 11/25-11/30 with similar symptoms and underwent EGD [...] week. Last drink was in November before [facility] mis [place]. ED course: Patient was hypotensive [...] in the last 7068 hours. Invalid input(s): FYPXXHCVWHB2V No results for input(s): POCGLU in the last 168 hours. Heme No results for input(s): LDH, HAPTOGLOBIN, URICACID in the last 168 hours. ABG (Arterial Blood Gas) Recent Labs 01/11/23 1510 01/11/23 1350 LACTATEVEN 6.2* 6.9* VBG (Venous Blood Gas) Recent Labs 01/11/23 1510 01/11/23 1350 LACTATEVEN 6.2* 6.9* Mixed Venous Sat No results for input(s): K9ASJL7 in the last 168 hours. Microbiology: Microbiology [...] who have questions please contact the health child care supervisor that requested yourimaging first. Electronically signed by: aNs Bills MD, [facility] ([phone]), at 01/11/2023 2:49 PM Assessment & Plan: Monisha Argueta is a 48 y.o. male w/ PMHx AUD, alcoholic cirrhosis, tobacco use disorder, esophagealvarices, presenting to [facility] with coffee ground emesis and melena now [...] NAME: Monisha Argueta : 1975 MEDICAL RECORD: [id number] DATE OF SERVICE: 01/12/2023 PARACENTESIS PHYSICIAN NOTE [...] MD Pulmonary and Critical Care PGY-4 Pager [phone] 01/12/2023 3:51 PM Associated attestation - Curtis Weinstein MD - 01/12/2023 6:36 PM EST I was the attending physician supervising the resident in the above care and I was present with theresident for the batres component(s) of the procedure and remained immediately available throughout the remainder. documented in this encounter ED Notes * Maddie Buckley RN - 01/11/2023 5:20 PM EST Chute Tender by the bedside to take pt for [...] etc. The patient was previously admitted in [place] last month for bleeding varices. The patient states he has not had any alcohol since that time and has no signs of withdrawal. History obtained from patient ROS as per HPI Vitals: ED Triage Vitals BP: 96/60 [01/11/23 1256] Heart Rate: (!) 127 [01/11/23 1254] Resp: 20 [01/11/23 1254] Temp: 36.4 ??C (97.5 ??F) [01/11/23 1254] Temp src: Temporal [01/11/23 1254] SpO2: 98 % [01/11/23 1254] O2 Device: n/a O2 Flow Rate (L/min): [...] etc. The patient was previously admitted in [place] last month for bleeding varices. The patient [...] software and may inherently contain errors in property manager. Some sounds may be transcribed incorrectly by [...] Argueta would be surrogate decision maker per [place] surrogate decision making law. (Only good for 180 days) Luiz Montes [phone] (pt's brother) Advance Care Planning: Attempt Cardiopulmonary [...] lives in single fam home with his lin/Nereyda. The home has 4 floors with 3 steps at the entrance. Pt stays on the fourth floor where his bedroom/bath are located. Pt states he has know problem gettting to the fourth floor.. Resource / Environmental Concerns: Resource/Environmental Concerns: none Home Accessibility Concerns: stairs to access bedroom or bathroom, stairs to enter home Current DME: none Home Address confirmed as: [address] [place] [address] Social & Family Supports: All names listed [...] Coverage: No Preferred Pharmacy: No Pharmacies Listed [place] Status: Patient is a : No Primary [...] Nov 2022) Assessment: Patient is admitted to [facility] service for Acute GI Bleed. Plan: Return home when medically safe. Pt is a 48 year old male admitted for GI Bleed admitted to [facility]. Pt does not have an AD on file. Surrogate noted with his next of kin- brother Luiz Lunage [phone]. Pt lives with his partner/Nereyda Curtisu. Pt resides in [place], [place]. Pt lives in a four level home with 3 steps at the entrance of the home. Pt stays on the fourth floor where his bedroom and bathroom are located. Pt stateshe has no issues getting to the fourth floor. Pt independent with IADL's and transfers. No DME. Pt is currently uninsured and has no PCP. LITIGATION CLAIM REPRESENTATIVE will request consult from [employer] regarding insurance. LITIGATION CLAIM REPRESENTATIVE has provided PCP information to pt. Pt pharmacy is [facility] in [place]. Hx of Alcohol abuse- pt states he [...] transition of care planning. Josemanuel Moran/JONNY Phone [phone] * Consult Note - Grady Santos MD [...] O2 Device: None (Room air) Intake/Output: 01/11 0701 - 01/12 0700 In: 3588.8 [P.O.:700; I.V.:1700] Out: 205 [Urine:200] [...] If you have any questions, please page [phone]. Consult service will sign-off. Edith Stewart MD 01/12/2023 Acute Care Surgery Service p.[phone] * Plan of Care - Barbara Mitchell [...] no emesis. Clear liquid diet ordered. Barbara G Mitchell, RN 6:20 AM Problem: Adult Inpatient Plan [...] Consult Note Patient Name: Monisha Argueta MR#: [id number] : 1975 Admission Date: 01/11/2023 Primary Team: [...] 6.2* 6.9* No results for input(s): PHART, GBL0AVH, PO2ART, XTQ6SMV in the last 72 hours. Studies: The [...] If you have any questions, please page [phone]. Consult service will continue to follow. Edith Stewart MD 01/11/2023 ACS Service p.[phone] I have independently reviewed the relevant laboratory [...] Argueta is a 48 y.o. male with H tobacco use disorder (25 pack years, currently smoking) and alcohol use disorder (multiple years of 12+ drinks; last drink 11/23/22), EtOH cirrhosis c/b ascites and recent admission to [facility] (11/25/22- 11/30/22) for upper GI bleed and [...] the last months since his admission to [facility]. He reports adherence to his medications (omeprazole BID, lasix 40, spironolactone 100mg, lactulose 20 TID) since discharge but states that he ran out of all his meds 1 week ago and since then has not been taking anything. Denies any NSAID use. Denies any recent alcohol use-- endorses that his last drink was on 11/23/22 prior to his [facility] admission in Nov. During pt's [facility] admission in late November 2022 for upper [...] (!) 122 (!) 123 (!) 132 Resp: Temp: 37 ??C (98.6 ??F) TempSrc: Oral [...] cirrhosis c/b ascites and recent admission to [facility] (11/25/22- 11/30/22) for upper GI bleed and volume overload who presentswith 2 days of coffee-ground emesis and melena. Hgb 6.1 on admission after several episodes of coffee-ground emesis and melena over the last 24 hours. Patient's BP remains stable off pressors. Although prior EGD at [facility] (11/27) did not demonstrate varices (only showed [...] M.D. Fellow in Gastroenterology and Hepatology Pager #[phone] 01/11/2023 Associated attestation - Rehan Matta MD - 01/12/2023 10:15 AM EST ATTENDING ATTESTATION: I have seen, examined, and discussed the patient with the GI fellow Dr. Kuo and I agree withthe findings, assessment, and plan as written. Rehan Matta MD, [facility] Attending Staff Section of Gastroenterology and Hepatology Pager [phone] * ED Triage - Avinash Valentin RN [...] MD - 01/11/2023 12:53 PM EST Telehealth [id number] Note: The following documentation is provided in my role as a TeleEmergency Physician and reflects a live audiovisual interaction. Brief HPI: . Pt has a hx of cirrhosis and was evaluated at [facility] in November. He now reports dark stools [...] PM EST Hospital Encounter [place] [address] Franklin Ramirez MD [address] [place] [address] [place] [address] 02/01/2024 2:10 PM EST - 02/01/2024 4:50 PM EST Surgery [place] [address] Franklin Ramirez MD [address] [place] [id number] REPAIR INGUINAL HERNIA, 5 YR OR OLDER, REDUCIBLE (WRVU 7.96) 03/05/2024 11:45 AM EST Office Visit General Surgery at [address] [id number] Franklin Ramirez MD [address] [place] [address] [place] [address] Pending Results Name Type Priority Associated Diagnoses [...] Associated Diagnosis Comments PATHOLOGY SLIDE REVIEW Routine 11/09/202 3 8:45 AM EST PATHOLOGY SLIDE REVIEW Routine 8:45 AM EST SCAN, PERIPHERAL BLOOD Routine 8:45 AM EST HEMOGRAM Routine 01/13/2023 8:45 [...] 8:05 PM EST Upper GI Endoscopy, Diagnostic (19888) 01/11/2023 5:30 PM EST coffee ground emesis [...] (01/13/2023 8:45 AM EST) Smear Review Report [id number] ? Location: IC3N; IC39; A The signing pathologist has (i) examined the relevant preparation(s) for the specimen(s) and (ii) rendered or confirmed the diagnosis(es). . ? Smear Review DIAGNOSIS PERIPHERAL BLOOD, SMEAR: ?? 1. ??anemia ?? 2. ??Thrombocytopenia Electronically signed by: ?Laury SANCHEZ, Gonzalo Verified: ??01/13/2023 16:32 ??Hematopathologist Performed at: ??-[facility] Dept. of Pathology, [place] [address] Rn Endoscopy: Yogi Coronado MD, FCAP, ??CLIA Certificate: [id number] DISCUSSION ??There is no significant morphologic evidence [...] Red cells: Normochromic/normoc ytic, polychromasia present, poikilocytes: [place] and target cells present. 0.7% schistocytes seen. Leukocytes: Granulocytes show toxic granules. Lymphocytes are unremarkable. Platelets: Decreased, normal morphology. CLINICAL INFORMATION Review hemolysis (Haptoglobin <10, LDH WNL) in the setting of cirrhosis. [facility] 01/13/2023 8:45 AM EST Franklin Severino MD HEMATOLOGY ORDERABLE S Performing Organization Address [facility]/ZIP Co de Phone Number [facility] [place] [address] * Scan, Peripheral Blood (01/13/2023 8:45 AM EST) Plat estimate Decreased [facility] RBC Morphology Abnormal [facility] Clara Cells 1-5 /HPF [facility] Blood 01/13/2023 8:45 AM EST 01/13/2023 8:51 AM EST Narrative Resulting Agency Comment Spec In Lab Franklin Severino MD HEMATOLOGY ORDERABLE S Performing Organization Address City/[facility]/ZIP Co de Phone Number [facility] [place] [address] * (ABNORMAL) Differential, Automated (01/13/2023 8:45 AM EST) Neutrophil % 51.9 % [facility] Neutrophil Absolute 3.85 1.70 - 6.10 x10(3)/[facility] Lymph % 27.7 % [facility] Lymphocytes Abs 2.0 0.9 - 3.2 x10(3)/[facility] Monocyte % 17.3 % [facility] Monocyte Abs 1.3(H) 0.3 - 0.9 x10(3)/[facility] Eos % 2.3 % [facility] Eosinophils Abs 0.2 0.0 - 0.4 x10(3)/[facility] Basophil % 0.4 % [facility] Baso Absolute 0.0 0.0 - 0.1 x10(3)/[facility] Immature Gran % 0.40 % [facility] Comment: Immature granulocytes(IG's)percentage and absolute count will include metamyelocytes, myelocytes, and promyelocytes. Blood smears from CBCs yielding IG's will be scanned manually for concordance. If this scan disagrees with the automated IG or if promyelocytes are noted, a manual differential will be performed. Immature Gran Absolute 0.03 0.00 - 0.04 x10(3)/[facility] Blood 01/13/2023 8:45 AM EST 01/13/2023 8:51 AM EST Narrative Resulting Agency Comment Spec In Lab Franklin Severino MD HEMATOLOGY ORDERABLE S [facility] [place] [address] * (ABNORMAL) Hemogram (01/13/2023 8:45 AM EST) Pathologist [facility] White Blood Cell 7.4 4.0 - 9.5 x10(3)/[facility] Red Blood Cell 2.63(L) 4.58 - 5.54 x10(6)/[facility] Hemoglobin 8.3(L) 13.7 - 16.5 g/dL [facility] Hematocrit 23.1(L) 40.5 - 48.5 % [facility] Mean Cell Volume 87.8 82.9 - 93.1 fL [facility] Mean Cell Hemoglobin 31.6 27.5 - 32.1 pg [facility] Mean Cell Hemoglobin Concentration 35.9(H) 32.0 - 35.7 g/dL [facility] Platelet 125(L) 145 - 357 x10(3)/mc L [facility] RDW Standard Deviation 51.1(H) 36.0 - 45.0 fL [facility] RDW coefficient of variation 16.1(H) 11.4 - 13.8 % [facility] Mean Platelet Volume 9.0 7.6 - 12.9 fL [facility] NRBC% auto 0.0 % [facility] NRBC Absolute 0.000 0.000 - 0.000 x10(3)/mc L [facility] Blood 01/13/2023 8:45 AM EST 01/13/2023 8:51 AM EST Narrative Resulting Agency Comment Spec In Lab Franklin Severino MD HEMATOLOGY ORDERABLE S Performing Organization Address City/[facility] Co de Phone Number [facility] [place] [address] * (ABNORMAL) Iron and TIBC (01/13/2023 8:45 AM EST) Iron 54 45 - 160 mcg/dL [facility] TIBC 115(L) 250 - 450 mcg/dL [facility] Iron Saturation 47 20 - 50 % [facility] Blood 01/13/2023 8:45 AM EST 01/13/2023 8:51 AM EST Narrative Resulting Agency Comment Spec In Lab Franklin Severino MD CHEMISTRY ORDERABLES Performing Organization Address City/[facility]/ZIP Co de Phone Number [facility] [place] [address] * Ferritin (01/13/2023 8:45 AM EST) Ferritin 176 30 - 400 ng/mL [facility] Comment: Pediatric reference ranges not verified at [facility], interpret with caution. Reference ranges for females greater than 50 years of age approach values for men, i.e., 30-400 ng/mL. Blood 01/13/2023 8:45 AM EST 01/13/2023 8:51 AM EST Narrative Resulting Agency Comment Spec In Lab Franklin Severino MD CHEMISTRY ORDERABLES Performing Organization Address [facility] de Phone Number [facility] [place] [address] * Folate, serum (01/13/2023 8:45 AM EST) Folate 8.7 4.8 - 24.2 ng/mL [facility] Blood 01/13/2023 8:45 AM EST 01/13/2023 8:51 AM EST Narrative Resulting Agency Comment Spec In Lab Franklin Severino MD CHEMISTRY ORDERABLES Performing Organization Address [facility] de Phone Number [facility] [place] [address] * (ABNORMAL) Vitamin B12 (01/13/2023 8:45 AM EST) Vitamin B12 1,466(H) 232 - 1,245 pg/mL [facility] Blood 01/13/2023 8:45 AM EST 01/13/2023 8:51 AM EST Narrative Resulting Agency Comment Spec In Lab Franklin Severino MD CHEMISTRY ORDERABLES Performing Organization Address [facility] de Phone Number [facility] [place] [address] * (ABNORMAL) Hemoglobin and Hematocrit, blood (01/13/2023 8:45 AM EST) Hemoglobin 8.3(L) 13.7 - 16.5 g/dL [facility] Hematocrit 23.1(L) 40.5 - 48.5 % [facility] Blood 01/13/2023 8:45 AM EST 01/13/2023 8:51 AM EST Narrative Resulting Agency Comment Spec In Lab Franklin Severino MD HEMATOLOGY ORDERABLE S [facility] [place] [address] * Peripheral Smear Review (01/13/2023 8:45 AM EST) Peripheral Smear Review See Comment [facility] Comment: When completed by the Pathologist, report [id number] will display under Hematopathology Reports. Blood 01/13/2023 8:45 AM EST 01/13/2023 8:51 AM EST Narrative Resulting Agency Comment Spec In Lab Franklin Severino MD HEMATOLOGY ORDERABLE S Performing Organization Address [facility] Co de Phone Number [facility] [place] [address] * US Abdomen Vascular Limited Hepatology Protocol [...] care supervisor that requested your imaging first. ?Neena Davis, Staff Physician Electronically Signed Final Report ?? 01/13/2023 10:08 am Narrative 01/13/2023 10:08 AM EST Abdominal ? (Signed Final 01/13/2023 10:08 am) PATIENT INFO: ID #: ? [id number] ?: ??[birth year] (48 yrs)(M) Name: ? MONISHA ARGUETA ? Visit Date: 01/13/2023 08:00 am PERFORMED BY: Attending: ?Susan SANCHEZ, Neena Howard Performed By: ? Esther Funes RDMS Referred By: ?CURTIS WEINSTEIN Location: ? [place] [facility] Protocol - ? 38706, [id number] Abdominal Limited Survey with Vascular ??- ??Single Organ or Quadrant - [id number] INDICATIONS: Concern for portal vein thrombus after [...] 01/13/2023 10:08 am) PATIENT INFO: ID #: [id number] : [birth year] (48 yrs)(M) Name: MONISHA ARGUETA Visit Date: 01/13/2023 08:00 am PERFORMED BY: Attending: Neena Davis MD Performed By: Esther Funes RDMS Referred By: CURTIS WEINSTEIN Location: [place] [facility] Protocol - [id number], [id number] Abdominal Limited Survey with Vascular - Single Organ or Quadrant - [id number] INDICATIONS: Concern for portal vein thrombus after [...] mm. CBD: 3.5 mm. 5. Mild splenomegaly. Electronically signed by: Neena Davis MD, [facility] ([phone]), at 01/13/2023 10:01 AM Thank you for letting us participate in the care of this patient. If you are a health care provider and have any questions regarding this report, please contact the number above. For patients who have questions, please contact the health child care supervisor that requested your imaging first. Neena Davis, Staff Physician Electronically Signed Final Report 01/13/2023 10:08 am Curtis Weinstein MD [facility] * Transfuse RBC (01/13/2023 5:51 AM EST) Pj Mcmillan MD NURSING TREATMENT OR DERABLES - BLOOD ADMIN * Prepare RBC (01/13/2023 2:55 AM EST) Dispensed? Yes [facility] Blood 01/13/2023 2:55 AM EST 01/13/2023 2:51 AM EST Pj Mcmillan MD BLOOD BANK PRODUCT O RDERABLES Performing Organization Address City/State/[facility] Co de Phone Number [facility] [place] [address] * (ABNORMAL) Differential, Automated (01/13/2023 1:30 AM EST) Neutrophil % 49.7 % [facility] Neutrophil Absolute 3.64 1.70 - 6.10 x10(3)/mc L [facility] Lymph % 30.4 % [facility] Lymphocytes Abs 2.2 0.9 - 3.2 x10(3)/mc L [facility] Monocyte % 17.0 % [facility] Monocyte Abs 1.2(H) 0.3 - 0.9 x10(3)/mc L [facility] Eos % 2.1 % [facility] Eosinophils Abs 0.2 0.0 - 0.4 x10(3)/mc L [facility] Basophil % 0.4 % [facility] Baso Absolute 0.0 0.0 - 0.1 x10(3)/mc L [facility] Immature Gran % 0.40 % [facility] Comment: Immature granulocytes(IG's)percentage and absolute count will include metamyelocytes, myelocytes, and promyelocytes. Blood smears from CBCs yielding IG's will be scanned manually for concordance. If this scan disagrees with the automated IG or if promyelocytes are noted, a manual differential will be performed. Immature Gran Absolute 0.03 0.00 - 0.04 x10(3)/mc L [facility] Blood 01/13/2023 1:30 AM EST 01/13/2023 1:41 AM EST Narrative Resulting Agency Comment Spec In Lab Pj Mcmillan MD HEMATOLOGY ORDERABLE S [facility] [place] [address] * (ABNORMAL) Hemogram (01/13/2023 1:30 AM EST) White Blood Cell 7.3 4.0 - 9.5 x10(3)/mc L [facility] Red Blood Cell 2.17(L) 4.58 - 5.54 x10(6)/mc L [facility] Hemoglobin 6.8(L) 13.7 - 16.5 g/dL [facility] Hematocrit 19.0(L) 40.5 - 48.5 % [facility] Mean Cell Volume 87.6 82.9 - 93.1 fL [facility] Mean Cell Hemoglobin 31.3 27.5 - 32.1 pg [facility] Mean Cell Hemoglobin Concentration 35.8(H) 32.0 - 35.7 g/dL [facility] Platelet 126(L) 145 - 357 x10(3)/mc L [facility] RDW Standard Deviation 54.7(H) 36.0 - 45.0 fL [facility] RDW coefficient of variation 17.0(H) 11.4 - 13.8 % [facility] Mean Platelet Volume 9.2 7.6 - 12.9 fL [facility] NRBC% auto 0.0 % [facility] NRBC Absolute 0.000 0.000 - 0.000 x10(3)/mc L [facility] Blood 01/13/2023 1:30 AM EST 01/13/2023 1:41 AM EST Narrative Resulting Agency Comment Spec In Lab Pj Mcmillan MD HEMATOLOGY ORDERABLE S Performing Organization Address [facility] Co de Phone Number [facility] [place] [address] * (ABNORMAL) Prothrombin Time (01/13/2023 1:30 AM EST) Prothrombin Time 20.9(H) 9.4 - 12.5 sec [facility] International Normalization Ratio 1.9 [facility] Comment: An INR <2.0 indicates adequate [...] MD HEMATOLOGY ORDERABLE S Performing Organization Address City/[facility] Co de Phone Number [facility] [place] [address] * Phosphorus (01/13/2023 1:30 AM EST) Phosphorus 2.9 2.5 - 4.5 mg/dL [facility] Blood 01/13/2023 1:30 AM EST 01/13/2023 1:41 AM EST Narrative Resulting Agency Comment Spec In Lab Curtis Weinstein MD CHEMISTRY ORDERABLES Performing Organization Address City/[facility]/ZIP Co de Phone Number [facility] [place] [address] * Magnesium (01/13/2023 1:30 AM EST) Magnesium 0.72 0.69 - 1.07 mmol/L [facility] Blood 01/13/2023 1:30 AM EST 01/13/2023 1:41 AM EST Narrative Resulting Agency Comment Spec In Lab Curtis Weinstein MD CHEMISTRY ORDERABLES Performing Organization Address [facility] Co de Phone Number [facility] [place] [address] * (ABNORMAL) Basic Metabolic Panel (non-fasting) (01/13/2023 1:30 AM EST) Glucose 100 65 - 199 mg/dL [facility] Comment:Diabetes: >=200 mg/d L plus symptoms Blood Urea Nitrogen 17 10 - 20 mg/dL [facility] Creatinine 0.55(L) 0.80 - 1.50 mg/dL [facility] Sodium 129(L) 135 - 145 mmol/L [facility] Potassium 3.2(L) 3.5 - 5.0 mmol/L [facility] Comment: Please note: ??Patients with WBC >100,000 may have falsely elevated Potassium levels. ??For accurate Potassium quantification in these patients send serum separator tube (gold top) for subsequent determinations. ??Contact the Clinical Chemistry Laboratory if there are any questions. Chloride 96(L) 98 - 107 mmol/L [facility] Carbon Dioxide 25 22 - 31 mmol/L [facility] Anion Gap 8 5 - 15 mmol/L [facility] Calcium 7.6(L) 8.5 - 10.5 mg/dL [facility] Est Glomerular Filtration Rate 121 >=60 mL/min/1. 73 m?? [facility] Comment: This patient's estimated GFR was [...] Weinstein MD CHEMISTRY ORDERABLES Performing Organization Address [facility] de Phone Number [facility] [place] [address] * (ABNORMAL) APTT (01/13/2023 1:30 AM EST) [facility] Partial Thromboplastin Time 39(H) 25 - 37 sec [facility] Comment: The PTT is NOT appropriate for heparin monitoring. Use the Anti-Xa level for heparin monitoring (HEP UFH) or LMWH monitoring (HEP LMW). A PTT less than 37 seconds generally indicates adequate hemostasis. Blood 01/13/2023 1:30 AM EST 01/13/2023 1:41 AM EST Narrative Resulting Agency Comment Spec In Lab Curtis Weinstein MD HEMATOLOGY ORDERABLE S Performing Organization Address [facility] Co de Phone Number [facility] [place] [address] * (ABNORMAL) Hepatic Function Panel (01/13/2023 1:30 AM EST) Protein, Total 4.6(L) 6.1 - 8.0 g/dL [facility] Albumin 2.4(L) 3.2 - 5.2 g/dL [facility] Aspartate Aminotransferase 31 0 - 39 unit/L [facility] Alanine Aminotransferase 11 0 - 55 unit/L [facility] Alkaline Phosphatase 67 40 - 130 unit/L [facility] Bilirubin, Total 4.8(H) 0.2 - 1.3 mg/dL [facility] Bilirubin, Direct 2.3(H) 0.0 - 0.3 mg/dL [facility] Blood 01/13/2023 1:30 AM EST 01/13/2023 1:41 AM EST Narrative Resulting Agency Comment Spec In Lab Curtis Weinstein MD CHEMISTRY ORDERABLES Performing Organization Address [facility] Co de Phone Number [facility] [place] [address] * Lactate Dehydrogenase (01/13/2023 1:30 AM EST) Lactate Dehydrogenase 144 110 - 220 unit/L [facility] Blood 01/13/2023 1:30 AM EST 01/13/2023 1:41 AM EST Narrative Resulting Agency Comment Spec In Lab Galina Key DO CHEMISTRY ORDERABLES Performing Organization Address [facility] de Phone Number [facility] [place] [address] * (ABNORMAL) Haptoglobin (01/13/2023 1:30 AM EST) Haptoglobin <10(L) 30 - 200 mg/dL [facility] Comment: Haptoglobin concentrations in newborns is low to undetectable; however, adult concentrations are usually attained by 4 months of age. ??No sex-related differences for haptoglobin have been detected. Blood 01/13/2023 1:30 AM EST 01/13/2023 1:41 AM EST Narrative Resulting Agency Comment Spec In Lab Galina Key DO CHEMISTRY ORDERABLES Performing Organization Address [facility] de Phone Number [facility] [place] [address] * SCAN DOC: LAB (01/13/2023 12:00 AM EST) Narrative 01/13/2023 12:00 AM EST Ordered by an unspecified provider. Scanning Provider MEDIA MGR SCAN EXT O RDR/RSLT * Anaerobic Culture (01/12/2023 4:40 PM EST) Anaerobic Culture No anaerobic organisms isolated [facility] Peritoneal Fluid 01/12/2023 4:40 PM EST 01/12/2023 5:14 PM EST Narrative Resulting Agency Comment Spec In Lab Angy Spivey MD MICROBIOLOGY - GENER AL ORDERABLES Performing Organization Address City/[facility]/ZIP Co de Phone Number [facility] [place] [address] * Body Fluid Culture, Aerobic (01/12/2023 4:40 PM EST) Body Fluid Culture No growth [facility] Gram Stain Cytocentrifuge Gram Stain performed No Neutrophils seen. No microorganisms seen. [facility] Peritoneal Fluid 01/12/2023 4:40 PM EST 01/12/2023 5:14 PM EST Narrative Resulting Agency Comment Spec In Lab Angy Spivey MD MICROBIOLOGY - GENER AL ORDERABLES Performing Organization Address [facility] Co de Phone Number [facility] [place] [address] * Body Fluid HOLD Peritoneal Fluid (01/12/2023 4:40 PM EST) HOLD, FLD Sample in lab. [facility] Comment: Collection date/time has been modified to: 16:40:00. ??Previous collection date/time: 16:25:00. Corrected from Sample in lab. [NA] on 01/12/23 17:01:39 EST by Jared Velazquez Body Fld 01/12/2023 4:40 PM EST 01/12/2023 4:59 PM EST Curtis Weinstein MD BODY FLUIDS AND STOO LS ORDERABLES Performing Organization Address City/[facility] Co de Phone Number [facility] [place] [address] * Glucose Level Body Fluid Peritoneal Fluid (01/12/2023 4:40 PM EST) Glucose, Fluid 128 mg/dL [facility] Comment: Reference intervals are unavailable for this test in body fluids. Comparison of this result with the concentration in blood, serum, or plasma is recommended. This test has not been cleared by the [place] FDA. Performance characteristics of this test for the analysis of body fluids were determined by [facility] in accordance with CLIA requirements. This laboratory is qualified under CLIA to perform high-complexity testing. Gluc, Fld Type Peritoneal fl [facility] Peritoneal Fluid 01/12/2023 4:40 PM EST 01/12/2023 4:59 PM EST Narrative Resulting Agency Comment Spec In Lab Curtis Weinstein MD BODY FLUIDS AND STOO LS ORDERABLES Performing Organization Address [facility] Co de Phone Number [facility] [place] [address] * Albumin Level Body Fluid Peritoneal Fluid (01/12/2023 4:40 PM EST) Albumin, Fluid 0.3 g/dL [facility] Comment: Reference intervals are unavailable for this test in body fluids. Comparison of this result with the concentration in blood, serum, or plasma is recommended. This test has not been cleared by the [place] FDA. Performance characteristics of this test for the analysis of body fluids were determined by [facility] in accordance with CLIA requirements. This laboratory is qualified under CLIA to perform high-complexity testing. Albumin, Fld Type Peritoneal fl [facility] Peritoneal Fluid 01/12/2023 4:40 PM EST 01/12/2023 4:59 PM EST Narrative Resulting Agency Comment Spec In Lab Curtis Weinstein MD BODY FLUIDS AND STOO LS ORDERABLES Performing Organization Address City/[facility]/ZIP Co de Phone Number [facility] [place] [address] * Cell Count Body Fluid Peritoneal Fluid (01/12/2023 4:40 PM EST) Body Fluid Source Peritoneal Fl [facility] Color, Fld Yellow [facility] Appearance, Fld Clear [facility] WBC Count, Fld 109 <=499 /mcl [facility] Comment: All body fluid results should always be interpreted in light of the total clinical presentation of the patient, including clinical history, data from additional tests and other appropriate information. Polymorphonuclear cells BF % 20 % [facility] Comment: Polymorphonuclear cell percent and absolute values may contain Neutrophils, Eosinophils, and Basophils. Body fluid smear will be scanned manually for concordance. Mononuclear cells BF % 80 % [facility] Comment: Rare WBC phagocytosis present Mononuclear cell percent and absolute values may contain Lymphocytes and Monocytes. Body fluid smear will be scanned manually for concordance. Polymorphonuclear cells BF ABS 22 /[facility] Comment: Polymorphonuclear cell percent and absolute values may contain Neutrophils, Eosinophils, and Basophils. Body fluid smear will be scanned manually for concordance. Mononuclear cells BF ABS 87 /[facility] Comment: Mononuclear cell percent and absolute values may contain Lymphocytes and Monocytes. Body fluid smear will be scanned manually for concordance. Peritoneal Fluid 01/12/2023 4:40 PM EST 01/12/2023 4:59 PM EST Narrative Resulting Agency Comment Spec In Lab Curtis Weinstein MD BODY FLUIDS AND STOO LS ORDERABLES Performing Organization Address City/[facility]/ZIP Co de Phone Number [facility] [place] [address] * (ABNORMAL) Hemoglobin and Hematocrit, blood (01/12/2023 4:00 PM EST) Hemoglobin 7.4(L) 13.7 - 16.5 g/dL [facility] Hematocrit 21.4(L) 40.5 - 48.5 % [facility] Blood 01/12/2023 4:00 PM EST 01/12/2023 4:24 PM EST Narrative Resulting Agency Comment Spec In Lab Curtis Weinstein MD HEMATOLOGY ORDERABLE S [facility] [place] [address] * Lactate, whole blood, send to lab ([facility] (01/12/2023 4:00 PM EST) Lactate WB 2.2 0.5 - 2.2 mmol/L [facility] Blood 01/12/2023 4:00 PM EST 01/12/2023 4:24 PM EST Narrative Resulting Agency Comment Spec In Lab Curtis Weinstein MD CHEMISTRY ORDERABLES [facility] [place] [address] * XR Chest One View (01/12/2023 1:00 [...] who have questions please contact the health child care supervisor that requested your imaging first. ? Electronically signed by: Maddie Schuster MD, [facility] ??([phone]), at 01/12/2023 1:31 PM Narrative 01/12/2023 1:31 PM EST EXAMINATION: XR [...] patients who have questions please contactthe health child care supervisor that requested your imaging first. Curtis Weinstein MD IMG DX ORDERABLES * Blood culture (01/12/2023 12:55 PM EST) Blood Culture No growth at 5 days. [facility] Blood 01/12/2023 12:5 5 PM EST 01/12/2023 1:15 PM EST Comment:R Wrist Narrative Resulting Agency Comment Spec In Lab Curtis Weinstein MD MICROBIOLOGY - BLOOD ORDERABLES Performing Organization Address [facility] Co de Phone Number [facility] [place] [address] * Blood culture (01/12/2023 12:46 PM EST) Blood Culture No growth at 5 days. [facility] Blood 01/12/2023 12:4 6 PM EST 01/12/2023 1:13 PM EST Comment:R Forearm Narrative Resulting Agency Comment Spec In Lab Curtis Weinstein MD MICROBIOLOGY - BLOOD ORDERABLES Performing Organization Address [facility] [place] [address] * [facility] Argueta Test-Argueta (01/12/2023 12:38 PM EST) [facility] Argueta Test ? Result ? Flag ??Unit [...] developed and its performance characteristics ?determined by [facility] in a manner consistent with CLIA ?requirements. This test has not been cleared or approved by ?the U.S. Food and Drug Administration. ?Test Performed by: ?[facility] ?[address] [place] [address] ?Technology Manager: Luis Vega M.D. Ph.D.; CLIA# [id number] [facility] Blood Venous Draw / Unknown 01/12/2023 12:38 PM EST 01/12/2023 2:33 PM EST Narrative Resulting Agency Comment Spec In Lab Angy Spivey MD LAB SEND OUT ORDERAB LES Performing Organization Address City/[facility] Co de Phone Number [facility] [place] [address] * Miscellaneous Lab request (01/12/2023 12:36 PM EST) Label Request received in lab. [facility] Blood 01/12/2023 12:3 6 PM EST 01/12/2023 12:54 PM EST Narrative Resulting Agency Comment Spec In Lab Curtis Weinstein MD LAB SEND OUT ORDERAB LES Performing Organization Address City/[facility] Co de Phone Number [facility] [place] [address] * Ethanol Level (01/12/2023 12:36 PM EST) Ethanol <100 <=99 mg/L [facility] Comment: Greater than 800 mg/L (0.08%) should be considered intoxicated. 3400 to 4500 mg/L (0.34 - 0.45%) is considered severe intoxication. Greater than 5500 mg/L (0.55%) is usually fatal. Blood 01/12/2023 12:3 6 PM EST 01/12/2023 12:54 PM EST Narrative Resulting Agency Comment Spec In Lab Curtis Weinstein MD CHEMISTRY ORDERABLES Performing Organization Address [facility] Co de Phone Number [facility] [place] [address] * (ABNORMAL) Lactate, whole blood, send to lab ([facility] (01/12/2023 11:35 AM EST) Lactate WB 2.6(H) 0.5 - 2.2 mmol/L [facility] Blood 01/12/2023 11:3 5 AM EST 01/12/2023 12:11 PM EST Narrative Resulting Agency Comment Spec In Lab Curtis Weinstein MD CHEMISTRY ORDERABLES Performing Organization Address [facility] Phone Number [facility] [place] [address] * (ABNORMAL) Hemoglobin and Hematocrit, blood (01/12/2023 7:45 AM EST) Hemoglobin 7.6(L) 13.7 - 16.5 g/dL [facility] Hematocrit 21.6(L) 40.5 - 48.5 % [facility] Blood 01/12/2023 7:45 AM EST 01/12/2023 7:51 AM EST Narrative Resulting Agency Comment Spec In Lab Curtis Weinstein MD HEMATOLOGY ORDERABLE S Performing Organization Address [facility] Co de Phone Number [facility] [place] [address] * Lactate, whole blood, send to lab ([facility] (01/12/2023 7:45 AM EST) Lactate WB 2.2 0.5 - 2.2 mmol/L [facility] Blood 01/12/2023 7:45 AM EST 01/12/2023 7:50 AM EST Narrative Resulting Agency Comment Spec In Lab Curtis Weinstein MD CHEMISTRY ORDERABLES Performing Organization Address [facility] Co de Phone Number [facility] [place] [address] * (ABNORMAL) Hemoglobin and Hematocrit, blood (01/12/2023 4:42 AM EST) Hemoglobin 7.3(L) 13.7 - 16.5 g/dL [facility] Hematocrit 21.2(L) 40.5 - 48.5 % [facility] Blood 01/12/2023 4:42 AM EST 01/12/2023 4:59 AM EST Narrative Resulting Agency Comment Spec In Lab Curtis Weinstein MD HEMATOLOGY ORDERABLE S [facility] [place] [address] * (ABNORMAL) Lactate, whole blood, send to lab ([facility] (01/12/2023 4:42 AM EST) Pathologist [facility] Lactate WB 2.6(H) 0.5 - 2.2 mmol/L [facility] Blood 01/12/2023 4:42 AM EST 01/12/2023 4:59 AM EST Narrative Resulting Agency Comment Spec In Lab Curtis Weinstein MD CHEMISTRY ORDERABLES [facility] [place] [address] * (ABNORMAL) Hepatic Function Panel (01/12/2023 2:08 AM EST) Protein, Total 4.6(L) 6.1 - 8.0 g/dL [facility] Albumin 2.3(L) 3.2 - 5.2 g/dL [facility] Aspartate Aminotransferase 32 0 - 39 unit/L [facility] Alanine Aminotransferase 10 0 - 55 unit/L [facility] Alkaline Phosphatase 68 40 - 130 unit/L [facility] Bilirubin, Total 7.5(H) 0.2 - 1.3 mg/dL [facility] Bilirubin, Direct 2.1(H) 0.0 - 0.3 mg/dL [facility] Blood Venous Draw / Unknown 01/12/2023 2:08 AM EST 01/12/2023 2:15 AM EST Narrative Resulting Agency Comment Spec In Lab Rehan Kelly MD CHEMISTRY ORDERABLES Performing Organization Address City/[facility] [place] [address] * Scan, Peripheral Blood (01/12/2023 2:08 AM EST) Plat estimate Decreased [facility] RBC Morphology Abnormal [facility] Ovalocytes 1-5 /HPF [facility] [place] Cells 1-5 /HPF [facility] Blood 01/12/2023 2:08 AM EST 01/12/2023 2:14 AM EST Narrative Resulting Agency Comment Spec In Lab Tomas Nagel MD HEMATOLOGY ORDERABLE S Performing Organization Address [facility] Co de Phone Number [facility] [place] [address] * (ABNORMAL) Differential, Automated (01/12/2023 2:08 AM EST) Neutrophil % 59.2 % [facility] Neutrophil Absolute 6.22(H) 1.70 - 6.10 x10(3)/mc L [facility] Lymph % 20.2 % [facility] Lymphocytes Abs 2.1 0.9 - 3.2 x10(3)/mc L [facility] Monocyte % 18.6 % [facility] Monocyte Abs 2.0(H) 0.3 - 0.9 x10(3)/mc L [facility] Eos % 1.2 % [facility] Eosinophils Abs 0.1 0.0 - 0.4 x10(3)/mc L [facility] Basophil % 0.4 % [facility] Baso Absolute 0.0 0.0 - 0.1 x10(3)/mc L [facility] Immature Gran % 0.40 % [facility] Comment: Immature granulocytes(IG's)percentage and absolute count will include metamyelocytes, myelocytes, and promyelocytes. Blood smears from CBCs yielding IG's will be scanned manually for concordance. If this scan disagrees with the automated IG or if promyelocytes are noted, a manual differential will be performed. Immature Gran Absolute 0.04 0.00 - 0.04 x10(3)/mc L [facility] Blood 01/12/2023 2:08 AM EST 01/12/2023 2:14 AM EST Narrative Resulting Agency Comment Spec In Lab Tomas Nagel MD HEMATOLOGY ORDERABLE S [facility] [place] [address] * (ABNORMAL) Hemogram (01/12/2023 2:08 AM EST) White Blood Cell 10.5(H) 4.0 - 9.5 x10(3)/mc L [facility] Red Blood Cell 2.47(L) 4.58 - 5.54 x10(6)/mc L [facility] Hemoglobin 7.6(L) 13.7 - 16.5 g/dL [facility] Hematocrit 21.7(L) 40.5 - 48.5 % [facility] Mean Cell Volume 87.9 82.9 - 93.1 fL [facility] Mean Cell Hemoglobin 30.8 27.5 - 32.1 pg [facility] Mean Cell Hemoglobin Concentration 35.0 32.0 - 35.7 g/dL [facility] Platelet 143(L) 145 - 357 x10(3)/mc L [facility] RDW Standard Deviation 53.6(H) 36.0 - 45.0 fL [facility] RDW coefficient of variation 16.7(H) 11.4 - 13.8 % [facility] Mean Platelet Volume 9.1 7.6 - 12.9 fL [facility] NRBC% auto 0.0 % [facility] NRBC Absolute 0.000 0.000 - 0.000 x10(3)/mc L [facility] Blood 01/12/2023 2:08 AM EST 01/12/2023 2:14 AM EST Narrative Resulting Agency Comment Spec In Lab Tomas Nagel MD HEMATOLOGY ORDERABLE S Performing Organization Address [facility] Co de Phone Number [facility] [place] [address] * Phosphorus (01/12/2023 2:08 AM EST) Phosphorus 3.3 2.5 - 4.5 mg/dL [facility] Blood 01/12/2023 2:08 AM EST 01/12/2023 2:14 AM EST Narrative Resulting Agency Comment Spec In Lab Curtis Weinstein MD CHEMISTRY ORDERABLES Performing Organization Address [facility] Co de Phone Number [facility] [place] [address] * (ABNORMAL) Magnesium (01/12/2023 2:08 AM EST) Magnesium 0.67(L) 0.69 - 1.07 mmol/L [facility] Blood 01/12/2023 2:08 AM EST 01/12/2023 2:14 AM EST Narrative Resulting Agency Comment Spec In Lab Curtis Weinstein MD CHEMISTRY ORDERABLES Performing Organization Address [facility] de Phone Number [facility] [place] [address] * (ABNORMAL) Basic Metabolic Panel (non-fasting) (01/12/2023 2:08 AM EST) Glucose 133 65 - 199 mg/dL [facility] Comment:Diabetes: >=200 mg/d L plus symptoms Blood Urea Nitrogen 28(H) 10 - 20 mg/dL [facility] Creatinine 0.56(L) 0.80 - 1.50 mg/dL [facility] Sodium 128(L) 135 - 145 mmol/L [facility] Potassium 3.5 3.5 - 5.0 mmol/L [facility] Comment: Please note: ??Patients with WBC >100,000 may have falsely elevated Potassium levels. ??For accurate Potassium quantification in these patients send serum separator tube (gold top) for subsequent determinations. ??Contact the Clinical Chemistry Laboratory if there are any questions. Chloride 94(L) 98 - 107 mmol/L [facility] Carbon Dioxide 22 22 - 31 mmol/L [facility] Anion Gap 12 5 - 15 mmol/L [facility] Calcium 7.9(L) 8.5 - 10.5 mg/dL [facility] Comment:result rechecked-bz Est Glomerular Filtration Rate 121 >=60 mL/min/1. 73 m?? [facility] Comment: This patient's estimated GFR was [...] Weinstein MD CHEMISTRY ORDERABLES Performing Organization Address [facility] Co de Phone Number [facility] [place] [address] * APTT (01/12/2023 2:08 AM EST) [facility] Partial Thromboplastin Time 35 25 - 37 sec [facility] Comment: The PTT is NOT appropriate for heparin monitoring. Use the Anti-Xa level for heparin monitoring (HEP UFH) or LMWH monitoring (HEP LMW). A PTT less than 37 seconds generally indicates adequate hemostasis. Blood 01/12/2023 2:08 AM EST 01/12/2023 2:14 AM EST Narrative Resulting Agency Comment Spec In Lab Curtis Weinstein MD HEMATOLOGY ORDERABLE S Performing Organization Address City/[facility] Co de Phone Number [facility] [place] [address] * (ABNORMAL) Prothrombin Time (01/12/2023 2:08 AM EST) Prothrombin Time 19.1(H) 9.4 - 12.5 sec [facility] International Normalization Ratio 1.7 [facility] Comment: An INR <2.0 indicates adequate [...] Lab Curtis Weinstein MD HEMATOLOGY ORDERABLE S [facility] [place] [address] * Transfuse RBC (01/12/2023 1:21 AM EST) Curtis Weinstein MD NURSING TREATMENT OR DERABLES - BLOOD ADMIN * Transfuse RBC (01/12/2023 1:21 AM EST) Curtis Weinstein MD NURSING TREATMENT OR DERABLES - BLOOD ADMIN * (ABNORMAL) Lactate, whole blood, send to lab ([facility] (01/12/2023 1:18 AM EST) Lactate WB 4.7(Critic al) 0.5 - 2.2 mmol/L [facility] Comment:Called by: katheryn, Read back by: Angeline Briseno, Date/Time:01/12/23 01:34. Blood 01/12/2023 1:18 AM EST 01/12/2023 1:24 AM EST Narrative Resulting Agency Comment Spec In Lab Curtis Weinstein MD CHEMISTRY ORDERABLES [facility] [place] [address] * POCT Glucose (01/11/2023 8:12 PM EST) Glucose, POC 166 65 - 199 mg/dL [facility] Comment: Supplemental ranges: <140 mg/dL before meals <180 mg/dL all other times of the day Blood 01/11/2023 8:12 PM EST 01/11/2023 8:12 PM EST Curtis Weinstein MD POINT OF CARE TEST O RDERABLES Performing Organization Address City/[facility]/ZIP Co de Phone Number [facility] [place] [address] * (ABNORMAL) Hemoglobin and Hematocrit, blood (01/11/2023 8:10 PM EST) Hemoglobin 7.5(L) 13.7 - 16.5 g/dL [facility] Hematocrit 21.6(L) 40.5 - 48.5 % [facility] Blood 01/11/2023 8:10 PM EST 01/11/2023 8:29 PM EST Narrative Resulting Agency Comment Spec In Lab Curtis Weinstein MD HEMATOLOGY ORDERABLE S Performing Organization Address City/[facility]/ZIP Co de Phone Number [facility] [place] [address] * (ABNORMAL) Urinalysis with reflex Culture (01/11/2023 8:05 PM EST) Glucose, Urine Dipstick Negative Negative mg/dL [facility] Protein, Urine Dipstick Negative Negative mg/dL [facility] Bilirubin, Urine Dipstick Small(A) Negative mg/dL [facility] Comment: Clinical correlation required for positive Urine Bilirubin results as false positive may occur with some drugs and drug related products. If a false positive is suspected a serum total bilirubin should be considered if clinically indicated. Urobilinogen, Urine Dipstick Normal Normal mg/dL [facility] pH, Urn (dipstick) 6.0 5.0 - 8.0 [facility] Blood, Urine Dipstick Negative Negative mg/dL [facility] Ketone, Urine Dipstick Negative Negative mg/dL [facility] Nitrite, Urine Dipstick Negative Negative [facility] Leukocytes, Urine Dipstick Negative Negative mcL [facility] Appearance, Urine Dipstick Clear Clear [facility] Specific [place] Urine Automated >=1.030(A) 1.005 - 1.030 [facility] Color, Urine Dipstick Dark Yellow Yellow [facility] Reflex to Culture No [facility] Clean Catch Urine 01/11/2023 8:05 PM EST 01/11/2023 8:30 PM EST Narrative Resulting Agency Comment Spec In Lab Curtis Weinstein MD URINE ORDERABLES [facility] [place] [address] * UPPER GI ENDOSCOPY (01/11/2023 4:45 PM EST) UPPER GI ENDOSCOPY [facility] Endoscopy ___ Procedure Date: 01/11/2023 4:45 PM ? Patient Name: Monisha Argueta ? Date of : 1975 ? Age: 48 ? Order #: [id number] ? Instrument Name: [id number] ? ___ Procedure: ? Upper GI endoscopy Indications: ? Coffee-ground emesis Providers: ? Rehan Matta, Leena Nagel ? Alba Glez, ? Lsw Referring MD: ? Medicines: ? Monitored Anesthesia [...] Procedure Code(s): ? --- Professional --- ? 83721, Esophagogastroduode noscopy, ? flexible, transoral; diagnostic, ? including collection of specimen(s) ? by brushing or washing, when ? performed (separate procedure) CPT copyright 2021 [employer]. All rights reserved. The codes documented in this report are preliminary and upon brick wheeler review may be revised to meet current compliance requirements. Attending Participation: ? I personally performed the entire procedure. ? Rehan Matta Rehan Matta, 01/11/2023 6:16:05 PM Number of Addenda: 0 Note Initiated On: 01/11/2023 4:45 PM PROVATION 01/11/2023 4:45 PM EST Unknown GENERAL SURGICAL ORD ERABLES Performing Organization Address City/[facility] Co de Phone Number PROVATION * Prepare RBC (01/11/2023 4:20 PM EST) Dispensed? Yes [facility] Blood 01/11/2023 4:20 PM EST 01/11/2023 4:20 PM EST Curtis Weinstein MD BLOOD BANK PRODUCT O RDERABLES [facility] [place] [address] * (ABNORMAL) Hemoglobin and Hematocrit, blood (01/11/2023 3:59 PM EST) Hemoglobin 6.1(L) 13.7 - 16.5 g/dL [facility] Hematocrit 17.6(L) 40.5 - 48.5 % [facility] Blood 01/11/2023 3:59 PM EST 01/11/2023 4:05 PM EST Narrative Resulting Agency Comment Spec In Lab Jed Fuller APRN HEMATOLOGY ORDERABLE S Performing Organization Address City/[facility]/ZIP Co de Phone Number [facility] [place] [address] * (ABNORMAL) L-Lactate2 Whole Blood (01/11/2023 3:10 PM EST) Lactate WB 6.2(Criti evelia) 0.5 - 2.2 mmol/L [facility] Comment: Critical notified to MAXINE BARRIENTOS MD by instrument maker apprentice immediately following run time. Blood 01/11/2023 3:10 PM EST 01/11/2023 3:10 PM EST Emergency Dept CHEMISTRY ORDERABLE S Performing Organization Address [facility] Co de Phone Number [facility] [place] [address] * Prepare RBC (01/11/2023 2:30 PM EST) Dispensed? Yes [facility] Blood 01/11/2023 2:30 PM EST 01/11/2023 2:27 PM EST Jed Fuller APRN BLOOD BANK PRODUCT O RDERABLES Performing Organization Address [facility] Co de Phone Number [facility] [place] [address] * CT Abdomen & Pelvis wwo Contrast [...] who have questions please contact the health child care supervisor that requested your imaging first. ? Electronically signed by: Nas Bills MD, [facility] ([phone]), at 01/11/2023 2:49 PM Narrative 01/11/2023 2:49 PM EST EXAMINATION: CT [...] patients who have questions please contactthe health child care supervisor that requested your imaging first. Electronically signed by: Nas Bills MD, [facility]([phone]), at 01/11/2023 2:49 PM Jed Fuller B2B SALES CONSULTANT IMG CT ORDERABLES * (ABNORMAL) L-Lactate2 Whole Blood (01/11/2023 1:50 PM EST) [facility] Lactate WB 6.9(Criti evelia) 0.5 - 2.2 mmol/L [facility] Comment: Critical notified to isabel nava by instrument maker apprentice immediately following run time. Blood 01/11/2023 1:50 PM EST 01/11/2023 1:50 PM EST Emergency Dept CHEMISTRY ORDERABLE S [facility] [place] [address] * Type and Screen Validity (01/11/2023 1:48 PM EST) Pathologist [facility] T&S only valid at [facility] Comment:This Type and Screen result is only valid at the [facility] Blood 01/11/2023 1:48 PM EST 01/11/2023 2:03 PM EST Narrative Resulting Agency Comment Spec In Lab Isabel Nava MD BLOOD BANK LAB ORDER NENA [facility] [place] [address] * Antibody screen (01/11/2023 1:48 PM EST) Ab Screen Interp Negative [facility] Expires at [id number] on: 01/14/2023 [facility] Blood 01/11/2023 1:48 PM EST 01/11/2023 2:03 PM EST Narrative Resulting Agency Comment Spec In Lab Isabel Nava MD BLOOD BANK LAB ORDER NENA Performing Organization Address City/[facility]/ZIP Co de Phone Number [facility] [place] [address] * ABO/Rh Typing (01/11/2023 1:48 PM EST) ABORH Type O Pos [facility] Blood 01/11/2023 1:48 PM EST 01/11/2023 2:03 PM EST Narrative Resulting Agency Comment Spec In Lab Isabel Nava MD BLOOD BANK LAB ORDER NENA Performing Organization Address City/[facility]/ZIP Co de Phone Number [facility] [place] [address] * Stephen Tube Hold (01/11/2023 1:40 PM EST) Stephen Hold Sample in lab. [facility] Blood Venous Draw / Unknown 01/11/2023 1:40 PM EST 01/11/2023 2:10 PM EST Isabel Nava MD CHEMISTRY ORDERABLES Performing Organization Address City/[facility]/ZIP Co de Phone Number [facility] [place] [address] * Gold Tube HOLD (01/11/2023 1:40 PM EST) Gold Hold Sample in lab. [facility] Blood Venous Draw / Unknown 01/11/2023 1:40 PM EST 01/11/2023 2:10 PM EST Isabel Nava MD CHEMISTRY ORDERABLES Performing Organization Address City/[facility]/[place] [address] * (ABNORMAL) Differential, Automated (01/11/2023 1:40 PM EST) Neutrophil % 72.8 % [facility] Neutrophil Absolute 7.39(H) 1.70 - 6.10 x10(3)/mc L [facility] Lymph % 13.5 % [facility] Lymphocytes Abs 1.4 0.9 - 3.2 x10(3)/mc L [facility] Monocyte % 13.0 % [facility] Monocyte Abs 1.3(H) 0.3 - 0.9 x10(3)/mc L [facility] Eos % 0.1 % [facility] Eosinophils Abs 0.0 0.0 - 0.4 x10(3)/mc L [facility] Basophil % 0.1 % [facility] Baso Absolute 0.0 0.0 - 0.1 x10(3)/mc L [facility] Immature Gran % 0.50 % [facility] Comment: Immature granulocytes(IG's)percentage and absolute count will include metamyelocytes, myelocytes, and promyelocytes. Blood smears from CBCs yielding IG's will be scanned manually for concordance. If this scan disagrees with the automated IG or if promyelocytes are noted, a manual differential will be performed. Immature Gran Absolute 0.05(H) 0.00 - 0.04 x10(3)/mc L [facility] Blood 01/11/2023 1:40 PM EST 01/11/2023 2:09 PM EST Narrative Resulting Agency Comment Spec In Lab Isabel Nava MD HEMATOLOGY ORDERABLE S Performing Organization Address City/[facility]/[place] [address] * (ABNORMAL) Hemogram (01/11/2023 1:40 PM EST) White Blood Cell 10.2(H) 4.0 - 9.5 x10(3)/mc L [facility] Red Blood Cell 2.31(L) 4.58 - 5.54 x10(6)/mc L [facility] Hemoglobin 7.5(L) 13.7 - 16.5 g/dL [facility] Hematocrit 21.6(L) 40.5 - 48.5 % [facility] Mean Cell Volume 93.5(H) 82.9 - 93.1 fL [facility] Mean Cell Hemoglobin 32.5(H) 27.5 - 32.1 pg [facility] Mean Cell Hemoglobin Concentration 34.7 32.0 - 35.7 g/dL [facility] Platelet 245 145 - 357 x10(3)/mc L [facility] RDW Standard Deviation 48.9(H) 36.0 - 45.0 fL [facility] RDW coefficient of variation 14.6(H) 11.4 - 13.8 % [facility] Mean Platelet Volume 9.9 7.6 - 12.9 fL [facility] NRBC% auto 0.0 % [facility] NRBC Absolute 0.000 0.000 - 0.000 x10(3)/mc L [facility] Blood 01/11/2023 1:40 PM EST 01/11/2023 2:09 PM EST Narrative Resulting Agency Comment Spec In Lab Isabel Nava MD HEMATOLOGY ORDERABLE S Performing Organization Address City/[facility]/ZIP Co de Phone Number [facility] [place] [address] * Ammonia (01/11/2023 1:40 PM EST) Ammonia 23 16 - 60 mcmol/L [facility] Blood 01/11/2023 1:40 PM EST 01/11/2023 1:56 PM EST Narrative Resulting Agency Comment Spec In Lab Jed Fuller B2B SALES CONSULTANT CHEMISTRY ORDERABLES [facility] [place] [address] * (ABNORMAL) APTT (01/11/2023 1:40 PM EST) Partial Thromboplastin Time 38(H) 25 - 37 sec [facility] Comment: The PTT is NOT appropriate for heparin monitoring. Use the Anti-Xa level for heparin monitoring (HEP UFH) or LMWH monitoring (HEP LMW). A PTT less than 37 seconds generally indicates adequate hemostasis. Blood 01/11/2023 1:40 PM EST 01/11/2023 2:09 PM EST Narrative Resulting Agency Comment Spec In Lab Isabel Nava MD HEMATOLOGY ORDERABLE S Performing Organization Address [facility] Co de Phone Number [facility] [place] [address] * (ABNORMAL) Prothrombin Time (01/11/2023 1:40 PM EST) Prothrombin Time 20.6(H) 9.4 - 12.5 sec [facility] International Normalization Ratio 1.8 [facility] Comment: An INR <2.0 indicates adequate [...] Lab Isabel Nava MD HEMATOLOGY ORDERABLE S [facility] [place] [address] * Phosphorus (01/11/2023 1:40 PM EST) Phosphorus 4.0 2.5 - 4.5 mg/dL [facility] Blood 01/11/2023 1:40 PM EST 01/11/2023 2:09 PM EST Narrative Resulting Agency Comment Spec In Lab Isabel Nava MD CHEMISTRY ORDERABLES Performing Organization Address [facility] Co de Phone Number [facility] [place] [address] * Magnesium (01/11/2023 1:40 PM EST) Magnesium 0.74 0.69 - 1.07 mmol/L [facility] Blood 01/11/2023 1:40 PM EST 01/11/2023 2:09 PM EST Narrative Resulting Agency Comment Spec In Lab Isabel Nava MD CHEMISTRY ORDERABLES Performing Organization Address [facility] de Phone Number [facility] [place] [address] * Lipase (01/11/2023 1:40 PM EST) Lipase 35 0 - 60 unit/L [facility] Blood 01/11/2023 1:40 PM EST 01/11/2023 2:09 PM EST Narrative Resulting Agency Comment Spec In Lab Isabel Nava MD CHEMISTRY ORDERABLES Performing Organization Address [facility] de Phone Number [facility] [place] [address] * (ABNORMAL) Comprehensive metabolic panel (non-fasting) (01/11/2023 1:40 PM EST) Glucose 157 65 - 199 mg/dL [facility] Comment:Diabetes: >=200 mg/d L plus symptoms Blood Urea Nitrogen 35(H) 10 - 20 mg/dL [facility] Creatinine 0.51(L) 0.80 - 1.50 mg/dL [facility] Sodium 135 135 - 145 mmol/L [facility] Potassium 3.6 3.5 - 5.0 mmol/L [facility] Comment: Please note: ??Patients with WBC >100,000 may have falsely elevated Potassium levels. ??For accurate Potassium quantification in these patients send serum separator tube (gold top) for subsequent determinations. ??Contact the Clinical Chemistry Laboratory if there are any questions. Chloride 93(L) 98 - 107 mmol/L [facility] Carbon Dioxide 23 22 - 31 mmol/L [facility] Anion Gap 19(H) 5 - 15 mmol/L [facility] Calcium 8.8 8.5 - 10.5 mg/dL [facility] Protein, Total 5.6(L) 6.1 - 8.0 g/dL [facility] Albumin 2.9(L) 3.2 - 5.2 g/dL [facility] Aspartate Aminotransferase 34 0 - 39 unit/L [facility] Alanine Aminotransferase 12 0 - 55 unit/L [facility] Alkaline Phosphatase 88 40 - 130 unit/L [facility] Bilirubin, Total 8.2(H) 0.2 - 1.3 mg/dL [facility] Est Glomerular Filtration Rate 124 >=60 mL/min/1. 73 m?? [facility] Comment: This patient's estimated GFR was [...] In Lab Isabel Nava MD CHEMISTRY ORDERABLES [facility] [place] [address] * EKG 12 Lead (01/11/2023 1:37 PM EST) Ventricular rate 119 BPM MUSE SYSTEM Atrial Rate 119 BPM MUSE SYSTEM P-R Interval 112 ms MUSE SYSTEM QRS Duration 84 ms MUSE SYSTEM Q-T Interval 370 ms MUSE SYSTEM QTC Calculated (Bezet) 520 ms MUSE SYSTEM Calculated P Howell 72 degrees MUSE SYSTEM Calculated R Howell 88 degrees MUSE SYSTEM Calculated T Howell 46 degrees MUSE SYSTEM INTERPRETATION Sinus tachycardia Prolonged QT Abnormal ECG No previous ECGs available Confirmed by MD John, Jermaine Ojeda ([id number]) on 01/11/2023 4:13:56 PM MUSE SYSTEM 01/11/2023 1:37 PM EST 01/11/2023 4:13 PM EST Isabel Nava MD ECG ORDERABLES MUSE SYSTEM documented in this encounter Visit Diagnoses Not on filedocumented in this encounter Admitting Diagnoses Diagnosis Acute GI bleeding Hemorrhage of gastrointestinal tract, unspecified documented in this encounter Administered Medications Inactive Administered Medications - up to 3 most recent administrations Medication Order MAR Action Action Date Dose Rate Site cefTRIAXone (Rocephin) 1 g vial attach to [...] Given 01/12/2023 1:07 PM EST 1,000 mcg lactulose (Chronulac) (0.67 gram/mL) oral liquid 20 [...] Given 01/11/2023 10:26 PM EST 3 mg multivitamin with minerals (Thera M) tablet 1 tablet 1 tablet, Oral, DAILY, First dose on Tue01/12/23 at 1315, Until Discontinued, Routine Given 01/13/2023 8:55 AM EST 1 tablet Given 01/12/2023 1:07 PM EST 1 tablet pantoprazole (Protonix) injection 40 mg 40 mg, Intravenous, 2 TIMES DAILY, First dose (after last modification) on Tue01/12/23 at 2100, Until Discontinued, Reconstitute with 10 mL of normal saline to a concentration of 4 mg/mL and inject slowly over 2 minutes. Given 01/13/2023 8:55 AM EST 40 m g Given 01/12/2023 8:48 PM EST 40 mg thiamine (Vitamin B-1) tablet 50 mg 50 [...] GI/Intra-abdominal 1427 (New Bag - Provider: Maddie Buckley RN)1457 (Stopped - Provider: Maddie Bcukley, KARYNA) cefTRIAXone (Rocephin) 1 g vial attach [...] on Tue01/11/23 at 2100, Until Discontinued, Routine 222 (Given - Provider: Barbara Mitchell RN) 0823 [...] on Tue01/11/23 at 2245, Until Discontinued, Routine 222 (Given - Provider: Barbara Mitchell RN) 2047 (Given - Provider: Barbara Mitchell RN) metoclopramide [...] Rodrigues RN) 0855 (Given - Provider: Anabella Ellis V RN) octreotide (SandoSTATIN) (100 mcg/mL) injection 50 mcg (COMPLETED) 50 mcg, Intravenous, ONCE, 1 dose, On Tue01/11/23 at 1423, STAT 1423 (Given - Provider: Maddie Buckley RN) ondansetron (pf) (Zofran) (2 mg/mL) injection 4 [...] (New Bag - Provider: Maddie Buckley RN)1730 (MAR Hold - Provider: Admin Adt - Reason: Transfer to a Procedural area)1815 (MAR Unhold - Provider: Admin Adt)2102 (Stopped - Provider: Barbara Mitchell, RN) PRN Medication Order 01/11/2023 01/12/2023 01/13/2023 iohexoL (Omnipaque) (350 mg/mL) solution 0-200 mL (COMPLETED) 0-200 mL, Intravenous, ONCE PRN, 1 dose, Starting on Tue01/11/23 at 1417, Until Tue01/11/23 at 1417, Per Protocol, Warning Vesicant/Irritant Medication , Radiology Contrast, Routine 1417 (Given - Provider: Monica Jane, RT) documented in this encounter Care Teams Yarn Washer Relationship Specialty Start Date End Date Unknown None PCP - General 12/21/13 02/10/23 documented as of this encounter
--- OUTSIDE RECORDS SUMMARY | 2023-12-26 11:43 | XMS_ITS | Encounter Summary ---
Author Organization [facility] [place] [address] Care Team Providers Care Cloth Finisher Name Role Phone Unknown Primary Care Provider Unavailabl e Encounter Details Date Type Department Care Team (Late st Contact Info) Description 12/21/2013 Orders [place] [phone] Zahraa Yao MD [facility] [address] [place] [address] Social History Tobacco Use Types Packs/Day Years [...] PM EST Hospital Encounter [place] [phone] Franklin Ramirez MD [address] [place] [address] [place] [address] 02/01/2024 2:10 PM EST - 02/01/2024 4:50 PM EST Surgery [place] [phone] Franklin Ramirez MD [address] [place] [address] [place] [address] REPAIR INGUINAL HERNIA, 5 YR OR OLDER, REDUCIBLE (WRVU 7.96) 03/05/2024 11:45 AM EST Office Visit General Surgery at [facility] [address] [place] [phone] Franklin Ramirez MD [address] [place] [address] [place] [address] Scheduled Procedures Name Priority Associated Diagnoses Date/Ti me REPAIR INGUINAL HERNIA, 5 YR OR OLDER, REDUCIBLE (WRVU 7.96) Right inguinal hernia 02/01/2024 2:10 PM EST MODIFIER MESH,BARD FLAT MESH Right inguinal hernia 02/01/2024 2:10 PM EST documented as of this encounter Procedures Procedure Name Priority Date/Time Associated Diagnosis Comments FILM LIBRARY STORAGE ONLY CT HEAD Routine 12/21/2013 12:55 PM EDT documented in this encounter Results * Film Library- Storage only CT Head (12/21/2013 12:55 PM EDT) Anatomical Region Laterality Modality Head Other 12/21/2013 12:5 5 PM EDT Narrative 12/21/2013 12:55 PM EDT This is a Non-reportable exam Procedure Note CHELSEA, UNSIGNED REPORT - 12/21/2013 This is a Non-reportable exam Zahraa Yao MD G FILM LIBRARY ORD ERABLES documented in this encounter Visit Diagnoses Not on filedocumented in this encounter Care Teams Cloth Finisher Relationship Specialty Start Date End Date Unknown None PCP - General 12/21/13 02/10/23 documented as of this encounter
--- OUTSIDE RECORDS SUMMARY | 2023-12-26 11:43 | XMS_ITS | Encounter Summary ---
Author Organization [facility] [place] [address] Care Team Providers Care Buffing Machine Operator Name Role Phone Unknown Primary Care Provider Unavailabl e Encounter Details Date Type Department Care Team (Latest Contact Info) Description 01/11/2023 Travel Social History Tobacco Use Types Packs/Day [...] PM EST Hospital Encounter [place] [phone] Franklin Ramirez MD [address] [place] [address] [place] [address] 02/01/2024 2:10 PM EST - 02/01/2024 4:50 PM EST Surgery [place] [phone] Franklin Ramirez MD [address] [place] [address] [place] [address] REPAIR INGUINAL HERNIA, 5 YR OR OLDER, REDUCIBLE (WRVU 7.96) 03/05/2024 11:45 AM EST Office Visit General Surgery at [facility] [address] [phone] Franklin Ramirez MD [address] [place] [address] [place] [address] Scheduled Procedures Name Priority Associated Diagnoses Date/Ti mn REPAIR INGUINAL HERNIA, 5 YR OR OLDER, REDUCIBLE (WRVU 7.96) Right inguinal hernia 02/01/2024 2:10 PM EST MODIFIER MESH,BARD FLAT MESH Right inguinal hernia 02/01/2024 2:10 PM EST documented as of this encounter Visit Diagnoses Not on filedocumented in this encounter Care Teams Buffing Machine Operator Relationship Specialty Start Date End Date Unknown None PCP - General 12/21/13 02/10/23 documented as of this encounter
[2023-12-26 15:41] LABS: FREE T4 1.12 ng/dL (0.76-1.46); TSH 0.08 uIU/mL (0.36-3.74)
[2023-12-26 22:45] LABS: T3,Free 4.9 pg/mL (2.8-5.3)
[2023-12-26 22:58] LABS: T3, Total 161 ng/dL (97-169)
[2023-12-26 23:26] LABS: FSH 27.6 mIU/mL (1.4-18.1); LH 12.8 mIU/mL (1.5-9.3); Prolactin 9.1 ng/mL (2.1-17.7); Thyroglobulin Antibody <15 U/mL (<=60)
[2024-01-10 23:38] LABS: Thyroid Stimulating Immunoglob <1.0 TSI index (<=1.3)
== END 2023-12-26 11:32 | disposition home or self-care (01) ==
PROVIDERS: Visit Provider Physician Assistant
DX: R79.89 Other specified abnormal findings of blood chemistry (principal); E22.1 Hyperprolactinemia
CPT/HCPCS: 36415; 83001; 83002; 84146; 84439; 84443; 84445; 84480; 84481; 86800

== ENCOUNTER 2024-02-14 02:23 | Outpatient (CLI) | payer MEDICAID, SELFPAY ==
[2024-02-14 13:27] LABS: FREE T4 1.02 ng/dL (0.76-1.46); T4 10.7 ug/dL (4.7-13.3); TSH 2.49 uIU/mL (0.36-3.74)
[2024-02-14 22:54] LABS: T3,Free 4.5 pg/mL (2.8-5.3)
[2024-02-14 23:09] LABS: T3, Total 165 ng/dL (97-169)
[2024-02-15 08:51] LABS: Parathyroid Hormone,Intact 22.2 pg/mL (19.0-88.0)
== END 2024-02-14 02:24 | disposition home or self-care (01) ==
PROVIDERS: Visit Provider Physician Assistant
DX: R79.89 Other specified abnormal findings of blood chemistry (principal)
CPT/HCPCS: 36415; 83970; 84436; 84439; 84443; 84480; 84481

== ENCOUNTER 2024-03-19 12:40 | Outpatient (CLI) | payer MEDICAID, SELFPAY ==
[2024-03-19 13:40] LABS: FREE T4 0.95 ng/dL (0.76-1.46); TSH 1.67 uIU/mL (0.36-3.74)
[2024-03-19 14:01] LABS: T4 9.9 ug/dL (4.7-13.3)
[2024-03-19 22:00] LABS: T3,Free 4.2 pg/mL (2.8-5.3)
[2024-03-19 22:14] LABS: T3, Total 167 ng/dL (97-169)
[2024-03-20 10:47] LABS: Parathyroid Hormone,Intact 24.3 pg/mL (19.0-88.0)
== END 2024-03-19 12:41 | disposition home or self-care (01) ==
LOC: LBO 12:41
PROVIDERS: Visit Provider Physician Assistant
DX: R79.89 Other specified abnormal findings of blood chemistry (principal)
CPT/HCPCS: 36415; 83970; 84436; 84439; 84443; 84480; 84481

== ENCOUNTER 2024-06-05 16:13 | Outpatient (CLI) | payer MEDICAID, SELFPAY ==
[2024-06-05 18:29] LABS: Estradiol 69 pg/mL (<40)
[2024-06-05 18:34] LABS: Prolactin 6.2 ng/mL (2.1-17.7)
[2024-06-05 18:40] LABS: FSH 22.9 mIU/mL (1.4-18.1)
[2024-06-12 12:38] LABS: Testosterone, Free 11.9 ng/dL (4.06-15.6); Testosterone, Total 1110 ng/dL (240-950)
== END 2024-06-05 16:14 | disposition home or self-care (01) ==
LOC: LBO 16:16
PROVIDERS: Visit Provider Student in an Organized Health Care Education/Training Program
DX: E22.1 Hyperprolactinemia (principal); K70.30 Alcoholic cirrhosis of liver without ascites
CPT/HCPCS: 36415; 84402; 84403; 82670; 83001; 83002; 84146

== ENCOUNTER 2024-06-20 02:25 | Outpatient (CLI) | payer MEDICAID, SELFPAY ==
[2024-06-20 15:38] LABS: T4 8.6 ug/dL (4.7-13.3)
[2024-06-20 22:20] LABS: T3,Free 3.8 pg/mL (2.8-5.3)
[2024-06-20 22:34] LABS: T3, Total 152 ng/dL (97-169)
[2024-06-20 22:46] LABS: Sex Hormone Binding Globulin 176.6 nmol/L (17.3-71.5)
[2024-06-21 08:38] LABS: Parathyroid Hormone,Intact 26 pg/mL (19-88)
== END 2024-06-20 02:26 | disposition home or self-care (01) ==
PROVIDERS: Student in an Organized Health Care Education/Training Program; Visit Provider Physician Assistant
DX: R79.89 Other specified abnormal findings of blood chemistry (principal)
CPT/HCPCS: 36415; 82642; 83970; 84270; 84436; 84443; 84480; 84481

== ENCOUNTER 2024-07-03 09:12 | Outpatient (CLI) | payer MEDICAID, SELFPAY ==
[2024-07-12 14:34] LABS: Dihydrotestosterone, Serum 754 pg/mL (112-955)
== END 2024-07-03 09:13 | disposition home or self-care (01) ==
LOC: LBO 09:12
PROVIDERS: Visit Provider Student in an Organized Health Care Education/Training Program
DX: R79.89 Other specified abnormal findings of blood chemistry (principal)
CPT/HCPCS: 82642